=== PATIENT | female | born 1970 | race Caucasian/White ===

== ENCOUNTER → 2023-10-29 17:03 | Emergency (ER) | payer OTHER, SELFPAY ==
[2023-10-29] VITALS (45 sets, daily range): BP systolic 102–146; BP diastolic 40–84; PULSE 67–86; RESP 10–30; TEMP 36.6; O2SAT 94–100
--- NOTE | 2023-10-29 17:36 | W.ED.GENAD ---
Discharge Plan Disposition Patient Disposition: Home Discharge Details Clinical Impression: Abdominal pain, Carcinoid tumor, UGIB (upper gastrointestinal bleed) Primary Care Provider: Unknown,Unknown ED Provider: Jagruti Tejada Home Meds and New Rx's Prescriptions: No Action famotidine 40 mg tablet 40 mg PO BID Creon 36,000-114,000- 180,000 unit capsule,delayed release(DR/EC) 1 cap PO TID Rx Instructions: administer with meals and/or snacks sandastatin IM .every 3 weeks loperamide 2 mg capsule 2 mg PO Q4H PRN Rx Instructions: administer after each loose stool until symptoms controlled; do not exceed 8 mg per 24 hrs ergotamine-caffeine 1-100 mg tablet 1 tab PO DAILY PRN rizatriptan 5 mg tablet 5 mg PO Q2H PRN Rx Instructions: do not exceed 6 doses per 24 hrs Discharge Instructions Additional Instructions: Please continue your stomach medications as prescribed take pain medication as needed. Do not mix this medication with alcohol If you have recurrence of bright red vomit or any bright red stool please return to the emergency department please follow up with your carcinoid team when you return home HPI General Date/Time Provider Initiated Documentation: 10/29/23 17:34. Limitations to Documentation: no limitations. Information obtained by: patient. HPI Narrative: 53-year-old female with past medical history of carcinoid tumor, not on therapy presents for evaluation of bloody vomit. She reports that this morning she woke up with some abdominal pain and today has had 3 episodes of emesis that had bright red blood. She has not had a episode of vomiting or bleeding for several hours. She has not had any change in stool. Earlier today she did have a normal stool. No melena or bright red blood. The patient reports some epigastric abdominal pain. She does report history of intermittent upper GI bleeding. She reports a history of ulcers, consistent with her carcinoid. She does get octreotide infusion every 3 weeks. She states that she does have a subcu octreotide injection but she does not have her with her as she is just up here camping. Related Data Home Medications ?Medication ?Instructions ?Recorded ?Confirmed ergotamine 1 mg-caffeine 100 mg 1 tab PO DAILY PRN 10/29/23 10/29/23 tablet famotidine 40 mg tablet 40 mg PO BID 10/29/23 10/29/23 [id number] 1 cap PO TID 10/29/23 10/29/23 36,000-114,000-180,000 unit capsule,delay rel (Creon) loperamide 2 mg capsule 2 mg PO Q4H PRN 10/29/23 10/29/23 rizatriptan 5 mg tablet 5 mg PO Q2H PRN 10/29/23 10/29/23 sandastatin IM .every 3 weeks 10/29/23 Allergies Allergy/AdvReac Type Severity Reaction Status Date / Time erythromycin base (From Allergy Mild vomit Verified 10/29/23 17:16 Erythrocin) levofloxacin (From Levaquin) AdvReac Mild joint pain Verified 10/29/23 17:16 C-chlor AdvReac Mild Vomit Uncoded 10/29/23 17:16 General Stated Complaint: Abd Prob HERLINDA: 3 Exam Narrative Exam Narrative: Review of Systems: All systems reviewed & are unremarkable except as noted in HPI and below Well-developed, no acute distress NCAT PERRL, normal conjunctiva RRR normal blood pressure Unlabored respiratory effort clear bilaterally Nondistended abdomen soft, mild epigastric tenderness Extremities w/o deformity, no cyanosis, no edema No rashes or lesions. no focal neurologic deficits Appropriate mood and affect Course Vital Signs Vital signs: Vital Signs Temperature 36.6 C 10/29/23 17:12 Pulse 79 10/29/23 17:12 Respiratory Rate 16 10/29/23 17:12 Blood Pressure 132/84 10/29/23 17:12 Pulse Oximetry 99 10/29/23 17:12 Temperature 36.6 C 10/29/23 17:12 Temperature Source Temporal Artery Scan 10/29/23 17:12 Pulse 79 10/29/23 17:12 Respiratory Rate 16 10/29/23 17:12 Respiratory Effort Normal, Non-Labored 10/29/23 17:20 Blood Pressure 132/84 10/29/23 17:12 Blood Pressure Position Sitting 10/29/23 17:12 Pulse Oximetry 99 10/29/23 17:12 Oxygen Delivery Method Room Air 10/29/23 17:12 Oxygen Flow Rate 0 10/29/23 17:12 Pain Level 9 10/29/23 17:12 Medical Decision Making Emergent evaluation of abdominal pain and upper GI bleeding. Patient has significant history of carcinoid tumor with recurrent upper GI bleeding treated with periocular octreotide infusions and followed by physicians in [place]. She is hemodynamically stable, not having any active bleeding at this time. Mild abdominal tenderness but not any significant. Plan for Protonix, octreotide infusion, will check lab work and CT angiogram to evaluate for acute GI bleeding Lab work reviewed. The patient hemoglobin is stable at 13/40. Patient is . She has slightly elevated creatinine at 1.1. LFTs are slightly elevated though not significantly. She has been monitored in the emergency department and has not had any additional episodes of vomiting or had any melena or bright red rectal bleeding. A CT scan was obtained. The CT scan reviewed and there is no evidence of contrast extravasation. The patient feels comfortable going home. Recommend that she continue Protonix and Pepcid at home. Avoid alcohol. She was sent home on a few doses of narcotics for her severe abdominal pain. She is advised to return home and follow-up with her team. Return precautions advised. Medical Records Medical records reviewed: Yes I reviewed the patient's medical records. Quality:SDOH Health Related Social Needs: No Data to Display [facility] All Active Problems UGIB (upper gastrointestinal bleed) (Acute) Carcinoid tumor (Acute) Abdominal pain (Acute) Social History Smoking/Tobacco Use Status: Never Smoking risk assessment performed?: Yes Alcohol Intake: current Alcohol Intake frequency: a few times a week Alcohol type: beer and hard liquor Drug use: Daily Substance use type: marijuana Details: medical marijuana Do you feel safe at home: Yes Do you feel safe in your relationship?: Yes
--- OUTSIDE RECORDS SUMMARY | 2023-10-29 17:43 | XMS_ITS | Encounter Summary ---
Author Organization [facility] Address [address] [place] [address] Care Team Providers Care Qa Test Lead Name Role Phone Consuelo Hobbs PA-C Primary Care Provider Madi Sahrp MD Unavailable [phone] Reason for Visit * Reason Comments Medication Refill Encounter Details Date Type Department Care Team ([facility] Contact Info) Description 10/20/2023 Refill [facility] Department of Internal Medicine [facility] [address] [facility] [address] [place] [phone] Consuelo Hobbs PA-C [address] [facility] [address] [place] [phone] Migraine with status migrainosus, not intractable, unspecified migraine type Social History Tobacco Use Types Packs/Day Years Used Date Smoking Tobacco: Former Cigarettes 0.3 22 Q uit: 05/17/2021 Smokeless Tobacco: Never Alcohol Use Standard Drinks/Week Comments Yes 0 (1 standard drink = 0.6 oz pur e alcohol) 6-10 drinks a week Sex and Gender Information Value Date Recorded Sex Assigned at Female 09/16/2022 9:31 AM EDT Gender Identity Female 09/16/2022 9:31 AM EDT Sexual Orientation Heterosexual (straight) 11/09 1:27 PM EDT documented as of this encounter Plan of Treatment Upcoming Encounters Date Type Department Care Team ([facility] Contact Info) Description 11/13/2023 7:45 AM EDT Office Visit [facility] Medical Oncology at [address] [phone] Ricci Carter MD [address] [place], [place] [phone] 11/13/2023 8:30 AM EDT Infusion [facility] [place] [facility] [address] [phone] Ricci Carter MD [address] [place], [place] [phone] Keiko Hallman MD [address] [facility] [place] [address] 11/20/2023 11:00 AM EDT Appointment [facility] Radiology [facility] [address] [place] [phone] Ricci Carter MD [address] [place], [place] [phone] 11/20/2023 11:30 AM EDT Appointment [facility] [address] [place] [phone] Ricci Carter MD [address] [place], [place] [id number] 03/05/2024 11:00 AM EST Consult [facility] [address] [place] [phone] Ricci Carter MD [address] [place], [place] [id number] Jamil Ralph MD [address] [place] [address] 05/30/2024 9:00 AM EST Office Visit [facility] Department of Internal Medicine [facility] [address] [phone] Consuelo Hobbs PA-C [address] [phone] documented as of this encounter Visit Diagnoses Diagnosis Migraine with status migrainosus, not intractable, unspecified migraine type documented in this encounter Care Teams Qa Test Lead Relationship Specialty Start Date End Date Consuelo Hobbs PA-C [address] [place] [id number] PCP - General 05/01/19 Madi Sharp MD [address] [address] Gastroenterology 10/02/19 documented as of this encounter
--- OUTSIDE RECORDS SUMMARY | 2023-10-29 17:43 | XMS_ITS | Encounter Summary ---
Author Organization [facility] Address [address] [place] [address] Care Team Providers Care Principal Bioinformatics Specialist Name Role Phone Consuelo Hobbs PA-C Primary Care Provider Madi Sharp MD Unavailable [phone] Reason for Referral * Cardiology (Routine) - Authorized Specialty Diagnoses / Procedures Referred By Contact Referred To Contact Cardiovascular Disease / Cardiology Diagnoses Palpitations Ricci Carter MD [address] [place] [address] [address] Referral ID Status Reason Start Date Expiration Date V isits Requested Visits Authorized [id number] Authorized Consult 10/02/2023 10/02/2024 1 1 Question Answer Reason for referral: Palpitations * Diagnostic Imaging (Routine) - Pending Review Specialty Diagnoses / Procedures Referred By Contac t Referred To Contact Diagnoses Carcinoid tumor of ileum (HCC) Procedures MRI Pelvis w w/o contrast Ricci Carter MD [address] [place] [address] Referral ID Status Reason Start Date Expiration Date V isits Requested Visits Authorized [id number] Pending Review 10/02/2023 10/02/2024 1 1 * Diagnostic Imaging (Routine) - Pending Review Specialty Diagnoses / Procedures Referred By Contbalbir t Referred To Contact Diagnoses Carcinoid tumor of ileum (HCC) Procedures MRI Abdomen w w/o contrast Ricci Carter MD [address] [place] [address] Referral ID Status Reason Start Date Expiration Date V isits Requested Visits Authorized [id number] Pending Review 10/02/2023 10/02/2024 1 1 Encounter Details Date Type Department Care Team (Late st Contact Info) Description 10/02/2023 10:30 AM EDT Office Visit [facility] [place] [facility]cology at [address] [phone] Ricci Carter MD [address] [place] [address] Carcinoid tumor of ileum (HCC) (Primary Dx); Diarrhea, unspecified type; History of iron deficiency anemia; Palpitations; Carcinoid tumor of ileum, unspecified whether malignant (HCC); Malignant carcinoid tumor of ileum (HCC); Encounter for monitoring octreotide therapy; Vitamin D deficiency; Chronic diarrhea; Oncology follow-up encounter; Elevated transaminase level; Daily consumption of alcohol; Normocytic anemia Social History Tobacco Use Types Packs/Day Years [...] PM EDT documented as of this encounter Last Filed Vital Signs Vital Sign Reading Time Taken Comments Blood Pressure 145/81 10/02/2023 10:36 AM EDT Pulse 82 10/02/2023 10:36 AM EDT Temperature 36.2 ??C (97.2 ??F) 10/02/2023 1 0:36 AM EDT Respiratory Rate 18 10/02/2023 10:3 6 AM EDT Oxygen Saturation 99% 10/02/2023 10: 36 AM EDT Inhaled Oxygen Concentration - - Weight 75.2 kg (165 lb 11.2 oz) 024 10:36 AM EDT Height - - Body Mass Index 29.36 08/29/2023 9:06 AM EDT documented in this encounter Progress Notes * Ricci Carter MD - 10/02/2023 10:30 AM EDT Images from the original note were not included. Medical Oncology/Hematology Progress Note Healthcare Team: Consuelo Hobbs PA-C Subjective: Date of visit is: 10/02/2023 Rody Sotelo is a 53 y.o. female who presents here today for a follow- up visit regarding carcinoid. ONCOLOGY HISTORY: - December 16, 2019, colonoscopy was normal. Interim History: She is here alone. Recurrent palpitations. She reports no side effects from Sandostatin LAR, some post injection lump. She has not been able to get > 6 tabs of Kytril per month. She reports more diarrhea since she is not using consistently. Diarrhea, 7-10 episodes per day. - loperamide, 12-14 tabs per day - colestipol, once daily - taking granisetron 2 mg at bedtime - not required any short acting octreotide Still doing mindful drinking program. - 4 dry days per week - 4 drinks on weekends - 3 drinks on week days She reports no abdominal pain or cramping. She reports no flushing. LMP- August 2023, x 12 hours She denies any pain Pain: 0 REVIEW OF SYSTEMS: Review of Systems Constitutional: Positive for fatigue. Negative for appetite change, chills, diaphoresis, fever and unexpected weight change. Respiratory: Negative for chest tightness, cough, shortness of breath and wheezing. Cardiovascular: Positive for palpitations (x 3 weeks, denies lightheadedness or dizzyness). Negative for chest pain and leg swelling. Gastrointestinal: Positive for nausea (occasional). Negative for blood in stool and vomiting. Endocrine: Positive for hot flashes. Musculoskeletal: Positive for arthralgias (feet). Neurological: Positive for headaches (migraines). Negative for dizziness and light-headedness. Psychiatric/Behavioral: Positive for sleep disturbance. The remainder of the 12- point ROS are within normal limits with the exceptions as noted in the HPI. Medications Outpatient Medications Marked as Taking for the 10/02/23 encounter (Office Visit) with Ricci Carter MD: busPIRone (BUSPAR) 10 MG tablet, Take 1 tablet (10 mg total) by mouth nightly., Disp: , Rfl: calcium carbonate (OS-ANGELICA) 600 MG tablet, Take 1 tablet (600 mg total) by mouth every morning with breakfast., Disp: , Rfl: Cannabis (MARIJUANA) [facility] Medical Prescription Strength, as needed., Disp: , Rfl: colestipol (COLESTID) 1 g tablet, TAKE 2 TABLETS(2 GRAMS) BY MOUTH TWICE DAILY WITH FULL GLASS OF WATER, Disp: 120 tablet, Rfl: 5 ergotamine-caffeine (CAFERGOT) 1-100 MG per tablet, TAKE 1 TABLET BY MOUTH TWICE DAILY NEEDED, Disp: 6 tablet, Rfl: 0 famotidine (PEPCID) 40 MG tablet, Take 1 tablet (40 mg total) by mouth daily., Disp: , Rfl: Ferrous Bisglycinate Chelate 28 MG Cap, Take 28 mg by mouth daily., Disp: , Rfl: granisetron (KYTRIL) 1 MG tablet, Take 2 tablets (2 mg total) by mouth daily., Disp: 60 tablet, Rfl: 5 loperamide (IMODIUM A-D) 2 MG capsule, Take 1 capsule (2 mg total) by mouth 4 (four) times a day asneeded for diarrhea., Disp: , Rfl: MILK THISTLE PO, Take by mouth 3 times a day., Disp: , Rfl: Multiple Vitamins-Minerals (Multi Complete) Cap, Take 1 capsule by mouth See Admin Instructions., Disp: , Rfl: pancrelipase, Fen-Sfbd-Rtgj, (Creon) [address]97 units Cap DR Particles capsule, Take 1 capsule (36,000 units of lipase total) by mouth 3 (three) times a day with meals. Dose is in units of lipase.,Disp: 90 capsule, Rfl: 5 rizatriptan (MAXALT-IRRIGATOR) 10 MG disintegrating tablet, DISSOLVE 1 TABLET ON THE TONGUE EVERY DAY NEEDED, Disp: 9 tablet, Rfl: 0 valsartan (DIOVAN) 160 MG tablet, TAKE 1 TABLET(160 MG) BY MOUTH DAILY, Disp: 90 tablet, Rfl: 1 vitamin D3 (CHOLECALCIFEROL) 1.25 MG (82578 UT) tablet, Take 1 tablet (50,000 Units total) by mouthonce a week., Disp: 24 tablet, Rfl: 1 Objective: Wt Readings from Last 2 Encounters: 10/02/23 75.2 kg (165 lb 11.2 oz) 08/29/23 76.5 kg (168 lb 11.2 oz) Physical Exam Vitals: 10/02/23 1036 BP: (!) 145/81 BP Location: Right arm Pulse: 82 Resp: 18 Temp: 97.2 ??F (36.2 ??C) TempSrc: Tympanic SpO2: 99% Weight: 75.2 kg (165 lb 11.2 oz) Performance status: ECOG (0) Fully active, able to carry on all predisease performance without restriction Physical Exam Constitutional: General: She is not in acute distress. Appearance: Normal appearance. She is well-developed. She is not ill-appearing, toxic-appearing or diaphoretic. HENT: Head: Normocephalic and atraumatic. Mouth/Throat: Mouth: Mucous membranes are dry. Eyes: General: No scleral icterus. Extraocular Movements: Extraocular movements intact. Conjunctiva/sclera: Conjunctivae normal. Pupils: Pupils are equal, round, and reactive to light. Cardiovascular: Rate and Rhythm: Normal rate and regular rhythm. Heart sounds: No murmur heard. Pulmonary: Effort: Pulmonary effort is normal. No respiratory distress. Breath sounds: Normal breath sounds. No wheezing, rhonchi or rales. Abdominal: General: Abdomen is flat. Bowel sounds are normal. There is no distension. Palpations: Abdomen is soft. Abdomen is not rigid. There is no hepatomegaly, splenomegaly or mass. Tenderness: There is no abdominal tenderness. There is no guarding. Negative signs include Henderson'ssign. Musculoskeletal: Right lower leg: No edema. Left lower leg: No edema. Lymphadenopathy: Head: Right side of head: No submental, submandibular, preauricular, posterior auricular or occipital adenopathy. Left side of head: No submental, submandibular, preauricular, posterior auricular or occipital adenopathy. Cervical: No cervical adenopathy. Upper Body: Right upper body: No supraclavicular, axillary or epitrochlear adenopathy. Left upper body: No supraclavicular, axillary or epitrochlear adenopathy. Skin: General: Skin is warm and dry. Coloration: Skin is not jaundiced or pale. Findings: No bruising, erythema, lesion or rash. Nails: There is no clubbing. Neurological: General: No focal deficit present. Mental Status: She is alert and oriented to person, place, and time. Cranial Nerves: No cranial nerve deficit. Sensory: No sensory deficit. Motor: No weakness. Gait: Gait normal. Deep Tendon Reflexes: Reflexes are normal and symmetric. Psychiatric: Mood and Affect: Mood normal. Behavior: Behavior normal. Thought Content: Thought content normal. Judgment: Judgment normal. Results: Lab Results Component Value Date WBC 6.2 06/06/2023 RBC 4.19 06/06/2023 HGB 12.4 06/06/2023 MCV 91 06/06/2023 PLT 240 06/06/2023 NEUTROABS 3.50 06/06/2023 LYMPHSABS 2.10 06/06/2023 MONOSABS 688 06/28/2022 EOSABS 67 06/28/2022 BASOABS 37 06/28/2022 Lab Results Component Value Date ALT 61 (H) 06/06/2023 AST 45 (H) 06/06/2023 ALKPHOS 76 06/06/2023 BILITOT 0.4 06/06/2023 Lab Results Component Value Date GLUC 102 (H) 06/06/2023 CALCIUM 9.5 06/06/2023 NA 139 06/06/2023 K 4.4 06/06/2023 CO2 21 06/06/2023 CL 101 06/06/2023 BUN 14 06/06/2023 CREAT 0.75 06/06/2023 Ferritin Date Value Ref Range Status 06/06/2023 70 16 - 232 ng/mL Final Iron Date Value Ref Range Status 06/06/2023 143 45 - 160 mcg/dL Final Total Iron Binding Capacity Date Value Ref Range Status 06/06/2023 483 (H) 250 - 450 mcg/dL (calc) Final Reticulocyte Count Date Value Ref Range Status 06/06/2023 0.9 % Final Iron Saturation Date Value Ref Range Status 06/06/2023 30 16 - 45 % (calc) Final Assessment/Plan: 1. Carcinoid, [id number] A. Diagnosed July 11, 2013 1. S/p small bowel resection and right hemicolectomy a. Path- well- differentiated neuroendocrine tumor B. Receiving Sandostatin LAR, initiated October 17, 2013 1. re- staging MR abdomen/pelvis (January 09, 2020)- SD 2. re- staging MR abdomen/pelvis (January 18, 2021)- SD 3. re- staging MR abdomen/pelvis (October 07, 2021)- SD 4. re- staging MR abdomen/pelvis (May 2022)- SD 5. re- staging MR abdomen/pelvis (November 2022)- stable radiographic findings In summary, Rody is a 53 y.o. female with a PMHx significant for: migraines, PCOS, IBS and PVCs whopresents here today for a follow- up visit regarding carcinoid. (the above information is being carried forward from prior records for informational purposes only and is being cited so that efficiency, safety, and quality of this patients' oncologic/hematologic care is not compromised) Rody is here for continued treatment of her metastatic carcinoid and ongoing therapeutic monitoring. She reports increasing diarrheal stools, diarrheal frequency, and now with approximately 2 weeks of palpitations. Since she has been unable to obtain an adequate supply of granisetron, she does feel that her diarrhea is worse. She has increased her dose of loperamide. She has not maximized her dose of colestipol. She is without weight loss, nausea or vomiting. She is without any flushing. She does acknowledge there is room for improvement with diet. She is tolerating Sandostatin LAR without apparent adverse effects or toxicities, she has not been able to stay on an every 3-week cycle. I have recommended the following: Modify colestipol to 2 g twice daily Modify granisetron to 1 mg at bedtime and in order to conserve supply, I renewed Continue loperamide as needed Short acting octreotide as needed, I renewed Continue Creon Modify diet I reordered surveillance MRI of abdomen and pelvis. Continue Sandostatin LAR 40 mg every 21 days. She will be due for treatment today. Lab order sent to [facility]. I plan on serving as a continuing focal point as part of ongoing care for the primary diagnosis of this condition. # Normocytic anemia, secondary to iron deficiency She is receiving ferrous bisglycinate, which she is tolerating well. Iron studies, CBC and reticulocyte count ordered. # Vitamin D deficiency Continue current dose of vitamin D. # Elevated AST and ALT Continue to monitor. Likely secondary to alcohol. She is not taking any acetaminophen. Abstinence from alcohol may also help to improve her diarrhea. # Palpitations No other associated symptoms, lasting 20-30 minutes. She remains tobacco free, and not taking caffeine or any other stimulants. I referred her to cardiology. I reminded her that she is overdue for mammogram. She will schedule an appointment. Immunizations: Received 2 doses of shingles vaccine Received influenza immunization 2022 ORDERS 1. Diarrhea, unspecified type - colestipol (COLESTID) 1 g tablet; TAKE 2 TABLETS(2 GRAMS) BY MOUTH TWICE DAILY WITH FULL GLASS OFWATER Dispense: 120 tablet; Refill: 5 2. Carcinoid tumor of ileum (HCC) - colestipol (COLESTID) 1 g tablet; TAKE 2 TABLETS(2 GRAMS) BY MOUTH TWICE DAILY WITH FULL GLASS OFWATER Dispense: 120 tablet; Refill: 5 - BASIC METABOLIC PANEL; Future - HEPATIC FUNCTION PANEL; Future - MRI Abdomen w w/o contrast; Future - MRI Pelvis w w/o contrast; Future - granisetron (KYTRIL) 1 MG tablet; Take 1 tablet (1 mg total) by mouth daily. Dispense: 30 tablet;Refill: 5 - BASIC METABOLIC PANEL - HEPATIC FUNCTION PANEL - octreotide (SandoSTATIN) 100 mcg/mL injection; Inject 1 mL (100 mcg total) under the skin 3 timesdaily (every 8 hours) as needed (diarrhea, flushing). Dispense: 90 mL; Refill: 5 - Chromogranin A, LC/MS/MS 3. History of iron deficiency anemia - Complete Blood Count, with Differential - Iron, TIBC, and Ferritin Panel - RETICULOCYTE COUNT 4. Palpitations - Ambulatory referral to Cardiology No orders of the defined types were placed in this encounter. The patient will return in 6 weeks. There are no Patient Instructions on file for this visit. Number and complexity of problems addressed- high Amount and/or complexity of data to be reviewed and analyzed- moderate Risk of complications and/or morbidity or mortality of patient management- high documented in this encounter Plan of Treatment Upcoming Encounters Date Type Department Care Team (Late st Contact Info) Description 11/13/2023 7:45 AM EDT Office Visit [facility] Medical Oncology at [address] [phone] Ricci Carter MD [address] [place] [address] 11/13/2023 8:30 AM EDT Infusion [facility] [place] [facility] Outpatient Infusion Center [address] [phone] Ricci Carter MD [address] [place] [address] Keiko Hallman MD [address] [facility] [place] [address] 11/20/2023 11:00 AM EDT Appointment [facility] Radiology [facility] [address] [place] [phone] Ricci Carter MD [address] [place] [address] 11/20/2023 11:30 AM EDT Appointment [facility] Radiology [facility] [address] [place] [phone] Ricci Carter MD [address] [place] [address] 03/05/2024 11:00 AM EST Consult [facility] Cardiology [place] [address] [facility] [address] [place] [phone] Ricci Carter MD [address] [place] [address] Jamil Ralph MD [address] [facility] [address] [place] [address] 05/30/2024 9:00 AM EST Office Visit [facility] Department of Internal Medicine [facility] [address] [facility] [address] [place], [place] [phone] Consuelo Hobbs PA-C [address] [facility] [address] [place] [address] Scheduled Orders Name Type Priority Associated Diagnoses Orde r Schedule Complete Blood Count, with Differential Lab Routine History of iron deficiency anemia Ordered: 10/02/2023 Iron, TIBC, and Ferritin Panel Lab Routine History of iron deficiency anemia Ordered: 10/02/2023 RETICULOCYTE COUNT Lab Routine History of iron deficiency anemia Ordered: 10/02/2023 BASIC METABOLIC PANEL Lab Routine Carcinoid tumor of ileum (HCC) Expected: 10/02/2023 (Approximate), Expires: 10/01/2024 HEPATIC FUNCTION PANEL Lab Routine Carcinoid tumor of ileum (HCC) Expected: 10/02/2023 (Approximate), Expires: 10/01/2024 MRI Abdomen w w/o contrast Imaging Routine Carcinoid tumor of ileum (HCC) Expected: 10/02/2023, Expires: 10/01/2024 MRI Pelvis w w/o contrast Imaging Routine Carcinoid tumor of ileum (HCC) Expected: 10/02/2023, Expires: 10/01/2024 Chromogranin A, LC/MS/MS Lab Routine Carcinoid tumor of ileum (HCC) Ordered: 10/02/2023 Scheduled Referrals Name Type Priority Associated Diagnoses Order Schedule Ambulatory referral to Cardiology Outpatient Referral Routine Palpitations Ordered: 10/02/2023 documented as of this encounter Visit Diagnoses Diagnosis Carcinoid tumor of ileum, unspecified whether malignant (HCC) Diarrhea, unspecified type History of iron deficiency anemia Personal history of diseases of blood and blood-forming organs Palpitations Malignant carcinoid tumor of ileum (HCC) Malignant carcinoid tumor of the ileum Encounter for monitoring octreotide therapy Vitamin D deficiency Chronic diarrhea Diarrhea Oncology follow-up encounter Elevated transaminase level Daily consumption of alcohol Normocytic anemia Unspecified anemia documented in this encounter Care Teams Principal Bioinformatics Specialist Relationship Specialty Start Date End Date Consuelo Hobbs PA-C [address] [place] [address] PCP - General 05/01/19 Madi Sharp MD [address] [place] [phone] Gastroenterology 10/02/19 documented as of this encounter
--- OUTSIDE RECORDS SUMMARY | 2023-10-29 17:43 | XMS_ITS | Encounter Summary ---
Author Organization [facility] Address [address] [place] [address] Care Team Providers Care Vegetable Trimmer Name Role Phone Consuelo Hobbs PA-C Primary Care Provider Madi Sharp MD Unavailable [phone] Encounter Details Date Type Department Care Team (Latest Contact Info) Description 10/23/2023 Travel Social History Tobacco Use Types Packs/Day Years [...] Description 11/13/2023 7:45 AM EDT Office Visit [facility] [place] [facility] Oncology at [address] [phone] Ricci Carter MD [address] [place] [address] 11/13/2023 8:30 AM EDT Infusion [facility] [place] [facility] Out[facility] Infusion Center [address] [phone] Ricci Carter MD [address] [place], [place] [phone] Keiko Hallman MD [address] [facility] [place] [address] 11/20/2023 11:00 AM EDT Appointment [facility] Radiology [facility] [address] [place] [phone] Ricci Carter MD [address] [place], [place] [phone] 11/20/2023 11:30 AM EDT Appointment [facility] Radiology [facility] [address] [place] [phone] Ricci Carter MD [address] [place], [place] [phone] 03/05/2024 11:00 AM EST Consult [facility] Cardiology [address] [place] [phone] Ricci Carter MD [address] [place], [place] [phone] Jamil Ralph MD [address] [facility] [address] [place], [place] [phone] 05/30/2024 9:00 AM EST Office Visit [facility] Department of Internal Medicine [address] [place], [place] [phone] Consuelo Hobbs PA-C [address] [address] documented as of this encounter Visit Diagnoses Not on filedocumented in this encounter Care Teams Vegetable Trimmer Relationship Specialty Start Date End Date Consuelo Hobbs PA-C [address] [phone] PCP - General 05/01/19 Madi Sharp MD [address] [place] [address] Gastroenterology 10/02/19 documented as of this encounter
--- OUTSIDE RECORDS SUMMARY | 2023-10-29 17:43 | XMS_ITS | Encounter Summary ---
Author Organization [facility] Address [address] [place] [address] Care Team Providers Care Loan Services Professional Name Role Phone Consuelo Hobbs PA-C Primary Care Provider Madi Sharp MD Unavailable [phone] Encounter Details Date Type Department Care Team (Late st Contact Info) Description 09/18/2023 Orders Only [facility] Medical Oncology at [address] [phone] Ricci Carter MD [address] [place] [address] Social History Tobacco Use Types Packs/Day Years [...] Description 11/13/2023 7:45 AM EDT Office Visit [facility] [place] Medical Oncology at [address] [phone] Ricci Carter MD [address] [place] [phone] 11/13/2023 8:30 AM EDT Infusion [facility] [place] [facility] Outpatient Infusion Center [address] [phone] Ricci Carter MD [address] [place] [phone] Keiko Hallman MD 80 [facility] [place] [address] 11/20/2023 11:00 AM EDT Appointment [facility] Radiology [facility] [address] [place] [phone] Ricci Caretr MD [address] [place], [place] [phone] 11/20/2023 11:30 AM EDT Appointment [facility] Radiology [facility] [address] [place] [phone] Ricci Carter MD [address] [place] [phone] 03/05/2024 11:00 AM EST Consult [facility] Cardiology [address] [place] [address] Ricci Caretr MD [address] [place], [place] [phone] Jamil Ralph MD [address] [place] [address] 05/30/2024 9:00 AM EST Office Visit [facility] [address] [facility] [address] [place] [address] Consuelo Hobbs PA-C [address] [address] documented as of this encounter Visit Diagnoses Not on filedocumented in this encounter Care Teams Loan Services Professional Relationship Specialty Start Date End Date Consuelo Hobbs PA-C [address] [place] [address] PCP - General 05/01/19 Madi Sharp MD [address] [place] [address] Gastroenterology 10/02/19 documented as of this encounter
--- OUTSIDE RECORDS SUMMARY | 2023-10-29 17:43 | XMS_ITS | Clinical Summary ---
Author Organization [facility] Address [address] [place] [address] Care Team Providers Care Environmental Maintenance Worker Name Role Phone Consuelo Hobbs PA-C Primary Care Provider Madi Sharp MD Unavailable [phone] Allergies Active Allergy Reactions Criticality Noted Date Comments Cefaclor GI Intolerance/Nausea/Vomiting Low 08/13 Erythromycin GI Intolerance/Nausea/Vomiting Low Levofloxacin Myalgia/Myositis/Arthralgia/Arthritis Medium 09/26/2019 Medications Medication Sig Dispensed Refills Start Date End Date Status famotidine (PEPCID) 40 MG tablet Take 1 tablet (40 mg total) by mouth daily. 0 Active loperamide (IMODIUM A-D) 2 MG capsule Take 1 capsule (2 mg total) by mouth 4 (four) times a day as needed for diarrhea. 0 Active calcium carbonate (OS-ANGELICA) 600 MG tablet Take 1 tablet (600 mg total) by mouth every morning with breakfast. 0 Active Cannabis (MARIJUANA) Misc Medical Prescription Strength as needed. 0 Active busPIRone (BUSPAR) 10 MG tablet Take 1 tablet (10 mg total) by mouth nightly. 0 2 Active Multiple Vitamins-Minerals (Multi Complete) Cap Take 1 capsule by mouth See Admin Instructions . 0 0 Active pancrelipase, Wah-Bjdo-Nhmt, (Creon) [address]78-202616 units Cap DR Particles capsuleIndications: Carcinoid tumor of ileum, unspecified whether malignant (HCC),Diarrhea, unspecified type Take 1 capsule (36,000 units of lipase total) by mouth 3 (three) times a day with meals. Dose is in units of lipase. 90 capsule 5 3 Active Ferrous Bisglycinate Chelate 28 MG Cap Take 28 mg by mouth daily. 0 Active vitamin D3 (CHOLECALCIFEROL) 1.25 MG (63291 UT) tabletIndications:V itamin D deficiency Take 1 tablet (50,000 Units total) by mouth once a week. 24 tablet 1 3 Active valsartan (DIOVAN) 160 MG tabletIndications:H ypertension, unspecified type TAKE 1 TABLET(160 MG) BY MOUTH DAILY 90 tablet 1 4 Active MILK THISTLE PO Take by mouth 3 times a day. 0 Active OMEprazole (PriLOSEC) 20 MG capsule Take 1 capsule (20 mg total) by mouth every morning before breakfast. 0 Active colestipol (COLESTID) 1 g tabletIndications:D iarrhea, unspecified type,Carcinoid tumor of ileum (HCC) TAKE 2 TABLETS(2 GRAMS) BY MOUTH TWICE DAILY WITH FULL GLASS OF WATER 120 tablet 5 4 Active granisetron (KYTRIL) 1 MG tabletIndications:C arcinoid tumor of ileum (HCC) Take 1 tablet (1 mg total) by mouth daily. 30 tablet 5 4 Active octreotide (SandoSTATIN) 100 mcg/mL injectionIndication s:Carcinoid tumor of ileum (HCC) Inject 1 mL (100 mcg total) under the skin 3 times daily (every 8 hours) as needed (diarrhea, flushing). 90 mL 5 4 03/30/20 24 Active ergotamine-caffeine (CAFERGOT) 1-100 MG per tabletIndications:M igraine with status migrainosus, not intractable, unspecified migraine type TAKE 1 TABLET BY MOUTH TWICE DAILY NEEDED 6 tablet 0 4 Active rizatriptan (MAXALT-BELT GLASS SANDER) 10 MG disintegrating tabletIndications:M igraine with status migrainosus, not intractable, unspecified migraine type DISSOLVE 1 TABLET ON THE TONGUE EVERY DAY NEEDED 9 tablet 0 4 Active octreotide (SandoSTATIN) 100 MCG/ML injectionIndication s:Carcinoid tumor of ileum (HCC) Inject 1 mL (100 mcg total) under the skin 3 times daily (every 8 hours) as needed (diarrhea, flushing). 90 mL 11 0 10/02/19 24 Discontinued(Reo rder) colestipol (COLESTID) 1 g tabletIndications:D iarrhea, unspecified type,Carcinoid tumor of ileum (HCC) TAKE 2 TABLETS(2 GRAMS) BY MOUTH TWICE DAILY WITH FULL GLASS OF WATER 120 tablet 5 4 10/02/19 24 Discontinued(Reo rder) granisetron (KYTRIL) 1 MG tabletIndications:C arcinoid tumor of ileum (HCC) Take 2 tablets (2 mg total) by mouth daily. 60 tablet 5 4 10/02/19 24 Discontinued(Reo rder) ergotamine-caffeine (CAFERGOT) 1-100 MG per tabletIndications:M igraine with status migrainosus, not intractable, unspecified migraine type TAKE 1 TABLET BY MOUTH TWICE DAILY NEEDED 6 tablet 0 4 10/23/19 24 Discontinued rizatriptan (MAXALT-BELT GLASS SANDER) 10 MG disintegrating tabletIndications:M igraine with status migrainosus, not intractable, unspecified migraine type DISSOLVE 1 TABLET ON THE TONGUE EVERY DAY NEEDED 9 tablet 0 4 10/23/19 24 Discontinued Active Problems Problem Noted Date Diagnosed Date Snoring 06/13/2023 Hypertension 06/13/2023 Weight gain 05/28/2023 Anemia 05/28/2023 History of gastric ulcer 05/28/2023 Elevated LFTs 05/28/2023 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 Abnormal mammogram of right breast 06/14/2022 Chronic diarrhea 06/14/2022 Achilles tendinitis of left lower extremity 10/2022 Anxiety 06/07/2022 Chronic insomnia 06/07/2022 Depression 06/07/2022 Gastric metaplasia of esophagus 06/07/2022 Irritable bowel syndrome 06/07/2022 Proteinuria 06/07/2022 Varicose veins 06/07/2022 Vegetarian diet 06/07/2022 Vitamin D deficiency 06/07/2022 Nicotine dependence in remission 06/07/2022 Medical marijuana use 01/20/2020 Encounter for monitoring octreotide therapy 11/02 Migraine 11/25/2019 PCOS (polycystic ovarian syndrome) 11/25/2019 PVC (premature ventricular contraction) 11/25/19 Heart palpitations 11/25/2019 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, N1, M1) - Signed by Ricci Carter MD on 11/25/2019 Resolved Problems Problem Noted Date Diagnosed Date Resolved Date Bilateral impacted cerumen 06/07/2022 0 06/13/2022 Encounter to discuss test results 03/09/2021 06/07/2022 Abdominal pain 04/13/2020 09/15/2020 Shortness of breath 03/30/2020 06/08/19 23 Oncology follow-up encounter 11/25/2019 06/07/2022 Diarrhea 11/25/2019 06/07/2022 Prescription refill 11/25/2019 06/08/19 23 Abdominal wall pain in right flank 08/19/2015 09/15/2020 Carcinoid tumor 08/01/2013 06/07/2022 Overview: Carcinoid tumor Encounters Date Type Department Care Team Description 10/23/2023 8:30 AM EDT Infusion [facility] [place] [facility] Outpatient Infusion [address] [phone] Ricci Carter MD DeFusco, Patricia A, MD Rate, Abigail, RN Carcinoid tumor of ileum, unspecified whether malignant (HCC) (Primary Dx) 10/23/2023 Orders Only [facility] Medical Oncology at [address] [phone] Ricci Carter MD 10/23/2023 Travel 10/20/2023 Refill [facility] Department of Internal Medicine [address] [place] [address] Consuelo Hobbs PA-C Migraine with status migrainosus, not intractable, unspecified migraine type 10/02/2023 11:00 AM EDT Infusion [facility] at [address] [phone] Ricci Carter MD DeFusco, Patricia A, MD Vogt, Sarah E, RN Carcinoid tumor of ileum, unspecified whether malignant (HCC) (Primary Dx) 10/02/2023 10:30 AM EDT Office Visit [facility] Medical Oncology at [address] [phone] Ricci Carter MD Carcinoid tumor of ileum (HCC) (Primary Dx); Diarrhea, unspecified type; History of iron deficiency anemia; Palpitations; Carcinoid tumor of ileum, unspecified whether malignant (HCC); Malignant carcinoid tumor of ileum (HCC); Encounter for monitoring octreotide therapy; Vitamin D deficiency; Chronic diarrhea; Oncology follow-up encounter; Elevated transaminase level; Daily consumption of alcohol; Normocytic anemia 10/02/2023 Travel 09/18/2023 Nurse Triage [facility] Medical Oncology at [address] [phone] Yesica Blanco RN 09/18/2023 [facility] Department of Internal Medicine [address] [place], [place] [phone] Consuelo Hobbs PA-C Migraine with status migrainosus, not intractable, unspecified migraine type 09/18/2023 Orders Only [facility] Medical Oncology at [address] [phone] Ricci Carter MD 08/29/2023 9:00 AM EDT Infusion [facility] at [address] [phone] Ricci Carter MD DeFusco, Patricia A, MD Izor, Jennifer L, RN Carcinoid tumor of ileum, unspecified whether malignant (HCC) (Primary Dx) 08/29/2023 Travel 08/24/2023 Scanned Document [facility] Medical Oncology at [address] [place] [phone] ProviderDodie MD 08/23/2023 Orders Only [facility] Medical Oncology at [address] [place] [phone] Niki Giron RN Carcinoid tumor of ileum (HCC) 08/16/2023 Refill [facility] Medical Oncology at [address] [place] [phone] Ricci Carter MD Diarrhea, unspecified type; Carcinoid tumor of ileum (HCC) 08/16/2023 Refill [facility] Medical Oncology at [address] [place] [phone] Ricci Carter MD Diarrhea, unspecified type; Carcinoid tumor of ileum (HCC) 08/10/2023 Refill [facility] Medical Oncology at [address] [place] [phone] Ricci Carter MD Carcinoid tumor of ileum (HCC) 08/08/2023 9:00 AM EDT Infusion [facility] [place] [address] [place] [phone] Ricci Carter MD DeFusco, Patricia A, MD Rate, Abigail, RN Carcinoid tumor of ileum, unspecified whether malignant (HCC) (Primary Dx) 08/08/2023 Travel 08/05/2023 Refill [facility] Department of Internal Medicine [place] [address] [facility] [address] [place], [place] [phone] Consuelo Hobbs PA-C Migraine with status migrainosus, not intractable, unspecified migraine type from Last 3 Months Immunizations Name Administration Dates Next Due Covid-19 mRNA Primary Series Vaccine - Moderna 0.5 mL Full Dose 11/27/2020 Influenza Inactivated/Split Preservative Free IM 05/10/2023,03/09/2021,02/06/2020 Influenza, Quadrivalent (FLU ARIX, AFLURIA, FLULAVAL, FLUZONE) Preservative Free IM 01/14/2023,02/22/2019,01/03/2018 Influenza, Unspecified 03/14/2016 Td 04/03/2016 Zoster Vaccine Recombinant (Shingrix) 09/13/2022 ,06/07/2022 Family History Medical History Relation Name Comments Hypertension Brother Alcohol abuse Father Heart attack Father Heart disease Father Hypertension Father Mental illness Father Mental illness Maternal Aunt Tuberculosis Maternal Grandfather Hypertension Mother Irritable bowel syndrome Mother Mental illness Mother Relation Name Status Comments Brother Father Maternal Aunt Maternal Grandfather Mother Social History Tobacco Use Types Packs/Day Years Used Date Smoking Tobacco: Former Cigarettes 0.3 22 Q uit: 05/17/2021 Smokeless Tobacco: Never Tobacco Cessation:Counseling Given: Not Answered Alcohol Use Standard Drinks/Week Comments Yes 0 (1 standard drink = 0.6 oz pur e alcohol) 6-10 drinks a week Sex and Gender Information Value Date Recorded Sex Assigned at Female 09/16/2022 9:31 AM EDT Gender Identity Female 09/16/2022 9:31 AM EDT Sexual Orientation Heterosexual (straight) 11/09 1:27 PM EDT Last Filed Vital Signs Vital Sign Reading Time Taken Comments Blood Pressure 145/73 10/23/2023 8:24 AM EDT Pulse 78 10/23/2023 8:24 AM EDT Temperature 35.6 ??C (96 ??F) 10/23/2023 8:24 AM EDT Respiratory Rate 16 10/23/2023 8:24 AM EDT Oxygen Saturation 98% 10/23/2023 8:24 AM EDT Inhaled Oxygen Concentration - - Weight 74.5 kg (164 lb 3.2 oz) 10/23/2023 8:24 A M EDT Height 160 cm (5' 2.99) 10/23/2023 8:24 AM EDT Body Mass Index 29.09 10/23/2023 8:24 AM EDT Plan of Treatment Upcoming Encounters Date Type Department Care Team (Late st Contact Info) Description 11/13/2023 7:45 AM EDT Office Visit [facility] Medical Oncology at [address] [phone] Ricci Carter MD [address] [place], [place] [phone] 11/13/2023 8:30 AM EDT Infusion [facility] [place] Out[facility]fusion Center [address] [phone] Ricci Carter MD [address] [place], [place] [phone] Keiko Hallman MD 80 [facility] [place] [address] 11/20/2023 11:00 AM EDT Appointment [facility] Radiology [facility] [address] [place] [phone] Ricci Carter MD [address] [place], [place] [phone] 11/20/2023 11:30 AM EDT Appointment [facility] [address] [place] [phone] Ricci Carter MD [address] [place], [place] [phone] 03/05/2024 11:00 AM EST [facility] Cardiology [address] [place] [phone] Ricci Carter MD [address] [place] [address] Jamil Ralph MD [address] [place] [address] 05/30/2024 9:00 AM EST Office Visit [facility] Department of Internal Medicine [facility] [address] [facility] [address] [place], [place] [phone] Consuelo Hobbs PA-C 1210 [facility] [address] [place], [place] [phone] Health Maintenance Due Date Last Done Comments Hepatitis C Virus Screening 1972 Pneumococcal Vaccine: Pediat smooth (0-5 Years) and At-Risk Patients (6 to 64 Years) (1 of 2 - PCV) 1978 Hepatitis B Vaccines (1 of 3 - 19+ 3-dose series) 1991 Pap Smear (Ages 21-65) 1993 DTaP/Tdap/Td Vaccines (1 - Tdap) 04/04/2016 04/03/19 17 COVID-19 Vaccine (4 - 2022-2 4 season) 2022 11/27/2020, 07/29/2020, 07/02/2020 Influenza Vaccine 11/02/2023 05/10/2023, , 03/09/2021, Additional history exists Mammogram 06/07/2024 06/07/2022 Colonoscopy 11/25/2032 11/25/2022 Zoster (Shingles) Vaccine Completed 09/13/2022, 10/2022 HIV Screening Completed 06/06/2023 Care Teams Environmental Maintenance Worker Relationship Specialty Start Date End Date Consuelo Hobbs PA-C [address] [place] [phone] PCP - General 05/01/19 Madi Sharp MD [address] [place] [address] Gastroenterology 10/02/19
--- OUTSIDE RECORDS SUMMARY | 2023-10-29 17:43 | XMS_ITS | Encounter Summary ---
Author Organization [facility] Address [address] [place] [address] Care Team Providers Care Sustainability Engineer Name Role Phone Consuelo Hobbs PA-C Primary Care Provider Madi Sharp MD Unavailable [phone] Reason for Visit * Reason Comments Injections * Episode Based Medications (Routine) - Authorized Specialty Diagnoses / Procedures Referred By Contbalbir t Referred To Contact Diagnoses Carcinoid tumor of ileum, unspecified whether malignant (HCC) Keiko Hallman MD 80 [facility] [place] [address] [address] [phone] Referral ID Status Reason Start Date Expiration Date V isits Requested Visits Authorized [id number] Authorized 04/29/2022 11/27/2023 5 2 Encounter Details Date Type Department Care Team (Late st Contact Info) Description 10/23/2023 8:30 AM EDT Infusion [facility] Cancer [place] [facility] Out[facility]fusion Center [address] [phone] Ricci Carter MD [address] [place] [address] Keiko Hallman MD 80 [facility] [place] [address] Brittany Goins RN [address] [place] [address] Carcinoid tumor of ileum, unspecified whether malignant (HCC) (Primary Dx) Social History Tobacco Use Types Packs/Day Years [...] Mass Index 29.09 10/23/2023 8:24 AM EDT documented in this encounter Plan of Treatment Upcoming Encounters Date Type Department Care Team (Late st Contact Info) Description 11/13/2023 7:45 AM EDT Office Visit [facility] Cancer [place] Medical Oncology at [address] [phone] Ricci Carter MD [address] [place] [address] 11/13/2023 8:30 AM EDT Infusion [facility] Cancer [place] [facility] Out[facility] [address] [phone] Ricci Carter MD [address], [place] [phone] Keiko Hallman MD 80 [facility] [place] [address] 11/20/2023 11:00 AM EDT Appointment [facility] Radiology [facility] [address] [place] [phone] Ricci Carter MD [address] [place], [place] [phone] 11/20/2023 11:30 AM EDT Appointment [facility] Radiology [facility] [address] [place] [phone] Ricci Carter MD [address] [place], [place] [phone] 03/05/2024 11:00 AM EST Consult [facility] Medical [facility] Cardiology [address] [place] [phone] Ricci Carter MD [address] [place], [place] [phone] Jamil Ralph MD [address] [place] [facility] [address] [place] [address] 05/30/2024 9:00 AM EST Office Visit [facility] Department of Internal Medicine [facility] 1210 [facility] [address] [place] [address] Consuelo Hobbs PA-C [address] [phone] documented as of this encounter Visit Diagnoses Diagnosis Carcinoid tumor of ileum, unspecified whether malignant (HCC)- Primary documented in this encounter Administered Medications Inactive Administered Medications - up to 1 most recent administrations Medication Order MAR Action Action Date Dose Rate Site octreotide (SandoSTATIN LAR) IM injection 40 mg 40 mg, Intramuscular, Once, On 10/23/23 at 0930, For 1 dose, Administer IM intragluteal (avoid deltoid administration). For intraMUSCULAR use ONLY. Must be administered immediately after mixing. Given 10/23/2023 8:36 AM EDT 40 mg Right Gluteal Upper Outer Quadrant documented in this encounter Care Teams Sustainability Engineer Relationship Specialty Start Date End Date Consuelo Hobbs PA-C [address] [place] [phone] PCP - General 05/01/19 Madi Sharp MD [address] [place] [phone] Gastroenterology 10/02/19 documented as of this encounter
--- OUTSIDE RECORDS SUMMARY | 2023-10-29 17:43 | XMS_ITS | Encounter Summary ---
Author Organization [facility] Address [address] [place] [address] Care Team Providers Care Line Puller Name Role Phone Consuelo Hobbs PA-C Primary Care Provider Madi Sharp MD Unavailable [phone] Encounter Details Date Type Department Care Team (Late st Contact Info) Description 10/23/2023 Orders Only [facility] Medical Oncology at [address] [phone] Ricci Carter MD [address] [place] [address] Social History Tobacco Use Types Packs/Day Years [...] Description 11/13/2023 7:45 AM EDT Office Visit [facility] [place] Medical Oncology at [address] [phone] Ricci Carter MD [address] [place] [phone] 11/13/2023 8:30 AM EDT Infusion [facility] [place] [facility] Outpatient Infusion Center [address] [phone] Ricci Carter MD [address] [place] [place] [phone] Keiko Hallman MD 80 [facility] [place] [address] 11/20/2023 11:00 AM EDT Appointment [facility] [place] [facility] [address] [place] [address] [phone] Ricci Carter MD [address] [place], [place] [phone] 11/20/2023 11:30 AM EDT Appointment [facility] [place] [facility] [address] [place] [address] [phone] Ricci Carter MD [address] [place] [place] [phone] 03/05/2024 11:00 AM EST Consult [facility] Cardiology [address] [place] [address] Ricci Carter MD [address] [place], [place] [phone] Jamil Ralph MD [address] [place] [address] 05/30/2024 9:00 AM EST Office Visit [facility] Department of Internal Medicine [facility] 1210 [facility] [address] [place] [address] Consuelo Hobbs PA-C [address] [phone] documented as of this encounter Visit Diagnoses Not on filedocumented in this encounter Care Teams Line Puller Relationship Specialty Start Date End Date Consuelo Hobbs PA-C [address] [place] [phone] PCP - General 05/01/19 Madi Sharp MD [address] [place] [address] Gastroenterology 10/02/19 documented as of this encounter
--- OUTSIDE RECORDS SUMMARY | 2023-10-29 17:43 | XMS_ITS | Encounter Summary ---
Author Organization [facility] Address [address] [place] [address] Care Team Providers Care Operations/Dispatch Name Role Phone Consuelo Hobbs PA-C Primary Care Provider Madi Sharp MD Unavailable [phone] Reason for Visit * Reason Comments Medication Refill Encounter Details Date Type Department Care Team (Late Contact Info) Description 08/16/2023 Refill [facility] Cancer [place] Medical Oncology at [address] [phone] Ricci Carter MD [address] [place] [address] Diarrhea, unspecified type; Carcinoid tumor of ileum (HCC) Social History Tobacco Use Types Packs/Day Years [...] Encounters Date Type Department Care Team (Late Contact Info) Description 11/13/2023 7:45 AM EDT Office Visit [facility] Medical Oncology at [address] [phone] Ricci Carter MD [address] [place], [place] [phone] 11/13/2023 8:30 AM EDT Infusion [facility] [place] [facility] Out[facility]fusion Center [address] [phone] Ricci Carter MD [address] [place], [place] [phone] Keiko Hallman MD 80 [facility] [place] [address] 11/20/2023 11:00 AM EDT Appointment [facility] Radiology [facility] [address] [place] [phone] Ricci Carter MD [address] [place], [place] [phone] 11/20/2023 11:30 AM EDT Appointment [facility] Radiology [facility] [address] [place] [phone] Ricci Carter MD [address] [place], [place] [phone] 03/05/2024 11:00 AM EST Consult [facility] Cardiology [address] [place] [address] [phone] Ricci Carter MD [address] [place], [place] [phone] Jamil Ralph MD [address] [place] [address] 05/30/2024 9:00 AM EST Office Visit [facility] Department of Internal Medicine [facility] 1210 [facility] 109 [place] [address] Consuelo Hobbs PA-C 1210 [facility] 109 [place] [address] documented as of this encounter Visit Diagnoses Diagnosis Diarrhea, unspecified type Carcinoid tumor of ileum (HCC) documented in this encounter Care Teams Operations/Dispatch Relationship Specialty Start Date End Date Consuelo Hobbs PA-C [address] [place] [phone] PCP - General 05/01/19 Madi [place] MD [address] [address] Gastroenterology 10/02/19 documented as of this encounter
--- OUTSIDE RECORDS SUMMARY | 2023-10-29 17:43 | XMS_ITS | Encounter Summary ---
Author Organization [facility] Address [address] [place] [address] Care Team Providers Care Tractor Distributor Name Role Phone Consuelo Hobbs PA-C Primary Care Provider Madi Sharp MD Unavailable [phone] Encounter Details Date Type Department Care Team (Late st Contact Info) Description 08/23/2023 Orders Only [facility] Medical Oncology at [address] [phone] Niki Giron, MAYA [address] [place] [address] Carcinoid tumor of ileum (HCC) Social History [...] Description 11/13/2023 7:45 AM EDT Office Visit [facility] Medical Oncology at [address] [phone] Ricci Carter MD [address] [place], [place] [phone] 11/13/2023 8:30 AM EDT Infusion [facility] Cancer [place] at [facility]fusion Center [address] [phone] Ricci Carter MD [address] [place], [place] [phone] Keiko Hallman MD 80 [facility] [place] [address] 11/20/2023 11:[address] [facility] Radiology Shay Mammography [address] [place] [address] [phone] Ricci Carter MD [address] [place], [place] [id number] 11/20/2023 11:[address] [facility] Radiology Shay Mammography [address] [place] [phone] Ricci Carter MD [address] [place], [place] [id number] 03/05/2024 11:00 AM EST Consult [facility] Cardiology [address] [place] [address] Ricci Carter MD [address] [place], [place] [phone] Jamil Ralph MD [address] [place] [address] [place] [address] 05/30/2024 9:00 AM EST Office Visit [facility] Department of Internal Medicine [facility] 1210 [facility] 109 [place] [address] Consuelo Hobbs PA-C [address] [phone] documented as of this encounter Visit Diagnoses Diagnosis Carcinoid tumor of ileum (HCC) documented in this encounter Care Teams Tractor Distributor Relationship Specialty Start Date End Date Consuelo Hobbs PA-C [address] [place] [phone] PCP - General 05/01/19 Madi Sharp MD [address] [place] [address] Gastroenterology 10/02/19 documented as of this encounter
--- OUTSIDE RECORDS SUMMARY | 2023-10-29 17:43 | XMS_ITS | Encounter Summary ---
Author Organization [facility] Address [address] [place] [address] Care Team Providers Care Lighter Captain Name Role Phone Consuelo Hobbs PA-C Primary Care Provider Madi Sharp MD Unavailable [phone] Reason for Visit * Reason Comments Medication Refill Encounter Details Date Type Department Care Team ([facility] Contact Info) Description 08/05/2023 Refill [facility] Department of Internal Medicine [facility] 1210 [facility] [address] [place] [phone] Consuelo Hobbs PA-C 1210 [facility] [address] [place] [phone] Migraine with status migrainosus, not intractable, unspecified [...] Upcoming Encounters Date Type Department Care Team ([facility] Contact Info) Description 11/13/2023 7:45 AM EDT Office Visit [facility] Medical Oncology at [address] [phone] Ricci Carter MD [address] [place], [place] [phone] 11/13/2023 8:30 AM EDT Infusion [facility] Cancer [place] [facility]fusion [facility] [address] [phone] Ricci Carter MD [address] [place], [place] [phone] Keiko Hallman MD [address] [facility] [place] [place] [address] 11/20/2023 11:00 AM EDT Appointment [facility] Radiology Shay Mammography [address] [place] [address] [phone] Ricci Carter MD [address] [place], [place] [id number] 11/20/2023 11:30 AM EDT Appointment [facility] Radiology Shay Mammography [address] [place] [phone] Ricci Carter MD [address] [place], [place] [address] 03/05/2024 11:00 AM EST Consult [facility] Cardiology [address] [place] [phone] Ricci Carter MD [address] [place], [place] 8[address]106 Jamil Ralph MD [address] [place] [address] 05/30/2024 9:00 AM EST Office Visit [facility] Department of Internal Medicine [facility] [address] [phone] Consuelo Hobbs PA-C [address] [address] documented as of this encounter Visit Diagnoses Diagnosis Migraine with status migrainosus, not intractable, unspecified migraine type documented in this encounter Care Teams Lighter Captain Relationship Specialty Start Date End Date Consuelo Hobbs PA-C [address] [place] [address] PCP - General 05/01/19 Madi Sharp MD [address] [address] Gastroenterology 10/02/19 documented as of this encounter
--- OUTSIDE RECORDS SUMMARY | 2023-10-29 17:43 | XMS_ITS | Encounter Summary ---
Author Organization [facility] Address [address] [place] [address] Care Team Providers Care Pound Keeper Name Role Phone Consuelo Hobbs PA-C Primary Care Provider Madi Sharp MD Unavailable [phone] Encounter Details Date Type Department Care Team (Latest Contact Info) Description 10/02/2023 Travel Social History Tobacco Use Types Packs/Day [...] Description 11/13/2023 7:45 AM EDT Office Visit [facility] Cancer [place] Medical Oncology at [address] [phone] Ricci Carter MD [address] [place] [address] 11/13/2023 8:30 AM EDT Infusion [facility] Cancer [place] at [facility] Outpatient Infusion Center [address] [phone] Ricci Carter MD [address] [place], [place] [phone] Keiko Hallman MD 80 [facility] [place] [address] 11/20/2023 11:00 AM EDT Appointment [facility] Radiology Shay Mammography [address] [place] [address] [phone] Ricci Carter MD [address] [place], [place] [phone] 11/20/2023 11:30 AM EDT Appointment [facility] Radiology Shay Mammography 35 [place] [phone] Ricci Carter MD [address] [place], [place] [id number] 03/05/2024 11:00 AM EST Consult [facility] Cardiology [address] [place] [phone] Ricci Carter MD [address] [place], [place] [phone] Jamil Ralph MD [address] [facility] [address] [place], [place] [id number] 05/30/2024 9:00 AM EST Office Visit [facility] Department of Internal Medicine [address] [place], [place] [phone] Consuelo Hobbs PA-C [address] [address] documented as of this encounter Visit Diagnoses Not on filedocumented in this encounter Care Teams Pound Keeper Relationship Specialty Start Date End Date Consuelo Hobbs PA-C [address] [phone] PCP - General 05/01/19 Madi Sharp MD [address] [place] [address] Gastroenterology 10/02/19 documented as of this encounter
--- OUTSIDE RECORDS SUMMARY | 2023-10-29 17:43 | XMS_ITS | Encounter Summary ---
Author Organization [facility] Address [address] [place] [address] Care Team Providers Care Staff Training And Development Manager Name Role Phone Consuelo Hobbs PA-C Primary Care Provider Madi Sharp MD Unavailable [phone] Reason for Visit * Episode Based Medications (Routine) - Authorized Specialty Diagnoses / Procedures Referred By Contac t Referred To Contact Diagnoses Carcinoid tumor of ileum, unspecified whether malignant (HCC) Keiko Hallman MD 80 [facility] [place] [address] Med [address] [phone] Referral ID Status Reason Start Date Expiration Date V isits Requested Visits Authorized [id number] Authorized 04/29/2022 11/27/2023 5 2 Encounter Details Date Type Department Care Team (Late st Contact Info) Description 10/02/2023 11:00 AM EDT Infusion [facility] Cancer [place] [facility] Outpatient Infusion Center [address] [phone] Ricci Carter MD [address] [place] [address] Keiko Hallman MD [address] [place] [address] [place] [address] Shital Wallace RN [address] [place] [address] Carcinoid tumor of ileum, unspecified whether malignant [...] Description 11/13/2023 7:45 AM EDT Office Visit [facility] Medical Oncology at [address] [phone] Ricci Carter MD [address] [place] [address] 11/13/2023 8:30 AM EDT Infusion [facility] [place] [facility]fusion Center [address] [phone] Ricci Carter MD [address] [place] [address] Keiko Hallman MD [address] [place] [address] [place] [address] 11/20/2023 11:00 AM EDT Appointment [facility] Radiology [address] [place] [phone] Ricci Carter MD [address] [place], [place] [phone] 11/20/2023 11:30 AM EDT Appointment [facility] Radiology Shay Mammography 35 [place] [phone] Ricci Carter MD 85 [place] [address] 03/05/2024 11:00 AM EST Consult [facility] Cardiology [address] [place] [phone] Ricci Carter MD [address] [place], [place] [phone] Jamil Ralph MD [address] [place] [facility] [address] [place] [address] 05/30/2024 9:00 AM EST Office Visit [facility] Department of Internal Medicine [facility] [address] [place] [address] Consuelo Hobbs PA-C [address] [address] documented as of this encounter Visit Diagnoses Diagnosis Carcinoid tumor of ileum, unspecified whether malignant (HCC)- Primary documented in this encounter Administered Medications Inactive Administered Medications - up to 1 most recent administrations Medication Order MAR Action Action Date Dose Rate Site octreotide (SandoSTATIN LAR) IM injection 40 mg 40 mg, Intramuscular, Once, On Mon10/02/23 at 1200, For 1 dose, Administer IM intragluteal (avoid deltoid administration). For intraMUSCULAR use ONLY. Must be administered immediately after mixing. Given 10/02/2023 11:09 AM EDT 40 mg Left Gluteal Upper Outer Quadrant documented in this encounter Care Teams Staff Training And Development Manager Relationship Specialty Start Date End Date Consuelo Hobbs PA-C [address] [address] PCP - General 05/01/19 Madi Sharp MD [address] [place] [address] Gastroenterology 10/02/19 documented as of this encounter
--- OUTSIDE RECORDS SUMMARY | 2023-10-29 17:43 | XMS_ITS | Encounter Summary ---
Author Organization [facility] Address [address] [place] [address] Care Team Providers Care Ladle Builder Name Role Phone Consuelo Hobbs PA-C Primary Care Provider Madi Sharp MD Unavailable [phone] Reason for Visit * Reason Onset Date Comments Appointment 09/18/2023 Encounter Details Date Type Department Care Team (Late st Contact Info) Description 09/18/2023 Nurse Triage [facility] Cancer [place] Medical Oncology at [address] [phone] Yesica Blanco RN 85 [place] [address] Social History Tobacco Use Types Packs/Day Years [...] PM EDT documented as of this encounter Miscellaneous Notes * Telephone Encounter - Yesica Blanco RN - 09/18/2023 9:[address] Carter notified. * Telephone Encounter - Yesica Blanco RN - 09/18/2023 9:38 AM EDT Regarding: (TJAbdirahman) cancelled her infusion due to migraine ----- Message from Na Cartagena sent at 09/18/2023 8:35 AM EDT ----- Rody called stated she has a very bad migraine and can't drive. Will not be coming to her appointment for today. documented in this encounter Plan of Treatment Upcoming Encounters Date Type Department Care Team (Late st Contact Info) Description 11/13/2023 7:45 AM EDT Office Visit [facility] Medical Oncology at [address] [phone] Ricci Carter MD 85 [place] [address] 11/13/2023 8:30 AM EDT Infusion [facility] Cancer [place] at Outpatient Infusion Center [address] [phone] Ricci Carter MD 85 [place] [address] Keiko Hallman MD [address] [facility] [place] [address] 11/20/2023 11:00 AM EDT Appointment [facility] Radiology [address] [phone] Ricci Carter MD [address] [place], [place] [phone] 11/20/2023 11:30 AM EDT Appointment [facility] Radiology Shay Mammography 35 [place] [phone] Ricci Carter MD [address] [place], [place] [address] 03/05/2024 11:00 AM EST Consult [facility] Cardiology [address] [place] [phone] Ricci Carter MD [address] [place], [place] [phone] Jamil Ralph MD 100 [address] [facility] [address] [place], [place] [address] 05/30/2024 9:00 AM EST Office Visit [facility] Department of Internal Medicine [facility] [address] [place] [address] [address] [place] [address] Consuelo Hobbs PA-C [address] [address] documented as of this encounter Visit Diagnoses Not on filedocumented in this encounter Care Teams Ladle Builder Relationship Specialty Start Date End Date Consuelo Hobbs PA-C [address] [place] [address] PCP - General 05/01/19 Madi Sharp MD 85 [facility] [address] [place] [phone] Gastroenterology 10/02/19 documented as of this encounter
--- OUTSIDE RECORDS SUMMARY | 2023-10-29 17:43 | XMS_ITS | Encounter Summary ---
Author Organization [facility] Address [address] [place] [address] Care Team Providers Care Customer Relationship Specialist Name Role Phone Consuelo Hobbs PA-C Primary Care Provider Madi Sharp MD Unavailable [phone] Reason for Visit * Reason Onset Date Comments Medication Refill 08/10/2023 Encounter Details Date Type Department Care Team (Late st Contact Info) Description 08/10/2023 Refill [facility] Cancer [place] Medical Oncology at [address] [phone] Ricci Carter MD [address] [place] [address] Carcinoid tumor of ileum (HCC) Social History [...] Description 11/13/2023 7:45 AM EDT Office Visit [facility] Medical Oncology at [address] [phone] Ricci Carter MD [address] [place], [place] [phone] 11/13/2023 8:30 AM EDT Infusion [facility] Cancer [place] at [facility] Outpatient Infusion Center [address] [phone] Ricci Carter MD [address] [place], [place] [phone] Keiko Hallman MD 80 [facility] [place] [address] 11/20/2023 11:00 AM EDT Appointment [facility] Radiology Shay Mammography [address] [place] [phone] Ricci Carter MD [address] [place], [place] [address]76106 11/20/2023 11:30 AM EDT Appointment [facility] Radiology Shay Mammography [address] [place] [address] [phone] Ricci Carter MD [address] [place], [place] [address] 03/05/2024 11:00 AM EST Consult [facility] Cardiology [address] [place] [address] [phone] Ricci Carter MD [address] [place], [place] [phone] Jamil Ralph MD [address] [place] [address] 05/30/2024 9:00 AM EST Office Visit [facility] Department of Internal Medicine [facility] 1210 [facility] [address] [place] [address] Consuelo Hobbs PA-C 1210 [facility] 109 [place] [address] documented as of this encounter Visit Diagnoses Diagnosis Carcinoid tumor of ileum (HCC) documented in this encounter Care Teams Customer Relationship Specialist Relationship Specialty Start Date End Date Consuelo Hobbs PA-C [address] [place] [address] PCP - General 05/01/19 Madi Sharp MD [address] [address] Gastroenterology 10/02/19 documented as of this encounter
--- OUTSIDE RECORDS SUMMARY | 2023-10-29 17:43 | XMS_ITS | Encounter Summary ---
Author Organization [facility] Address [address] [place] [address] Care Team Providers Care Geometry Tutor Name Role Phone Consuelo Hobbs PA-C Primary Care Provider Madi Sharp MD Unavailable [phone] Encounter Details Date Type Department Care Team (Late st Contact Info) Description 08/24/2023 Scanned Document [facility] Medical Oncology at [address] [phone] Provider, Dodie, [address] [place] [address] Social History Tobacco Use Types Packs/Day Years [...] Description 11/13/2023 7:45 AM EDT Office Visit [facility] Medical Oncology at [place] [phone] Ricci Carter MD 85 [place] [phone] 11/13/2023 8:30 AM EDT Infusion [facility] Cancer [place] at [facility] Outpatient Infusion Center [address] [phone] Ricci Carter MD 85 [place] [address] Keiko Hallman MD 80 [facility] [address] 11/20/2023 11:00 AM EDT Appointment [facility] Radiology Shay Mammography 35 [place] [phone] Ricci Carter MD 85 [place], [place] [address] 11/20/2023 11:30 AM EDT Appointment [facility] Radiology Shay Mammography 35 [place] [phone] Ricci Carter MD 85 [place], [place] [address]46[address] 03/05/2024 11:00 AM EST Consult [facility] Cardiology [place] [address] [facility] [address] [place] [phone] Ricci Carter MD 85 [place] [address] Jamil Ralph MD 100 [place] [facility] [address] [place], [place] [address] 05/30/2024 9:00 AM EST Office Visit [facility] Department of Internal Medicine [facility] [address] [place] [address] Consuelo Hobbs PA-C [address] [phone] documented as of this encounter Visit Diagnoses Not on filedocumented in this encounter Care Teams Geometry Tutor Relationship Specialty Start Date End Date Consuelo Hobbs PA-C [address] [place] [address] [phone] PCP - General 05/01/19 Madi Sharp MD [address] [place] [address] Gastroenterology 10/02/19 documented as of this encounter
--- OUTSIDE RECORDS SUMMARY | 2023-10-29 17:43 | XMS_ITS | Encounter Summary ---
Author Organization [facility] Address 100 [place] [address] Care Team Providers Care Ship Surveyor Name Role Phone Consuelo Hobbs PA-C Primary Care Provider Madi Sharp MD Unavailable [phone] Encounter Details Date Type Department Care Team (Late st Contact Info) Description 07/14/2023 Scanned Document [facility] [address] [facility] [place] [phone] Madi Sharp MD [address] [place] [address] Social History Tobacco Use Types Packs/Day Years [...] Description 11/13/2023 7:45 AM EDT Office Visit [facility] Cancer [place] Medical Oncology at [address] [phone] Ricci Carter MD 85 [place] [address] 11/13/2023 8:30 AM EDT Infusion [facility] Cancer [place] at [facility] Outpatient Infusion Center [address] [phone] Ricci Carter MD 85 [place] [phone] Keiko Hallman MD 80 [facility] [place] [address] 11/20/2023 11:00 AM EDT Appointment [facility] Radiology Shay Mammography [address] [place] [phone] Ricci Carter MD [address] [place], [place] [address] 11/20/2023 11:30 AM EDT Appointment [facility] Radiology Shay Mammography [address] [place] [phone] Ricci Carter MD [address] [place], [place] [address] 03/05/2024 11:00 AM EST Consult [facility] Cardiology [address] [place] [phone] Ricci Carter MD 85 [place] [address] Jamil Ralph MD [address] [facility] [address] [place] [address] 05/30/2024 9:00 AM EST Office Visit [facility] Physicians Department of Internal Medicine [facility] 1210 [facility] 109 [place] [address] Consuelo Hobbs PA-C [address] [place] [address] documented as of this encounter Visit Diagnoses Not on filedocumented in this encounter Care Teams Ship Surveyor Relationship Specialty Start Date End Date Consuelo Hobbs PA-C [address] [place] [phone] PCP - General 05/01/19 Madi Sharp MD [address] [place] [address] Gastroenterology 10/02/19 documented as of this encounter
--- OUTSIDE RECORDS SUMMARY | 2023-10-29 17:43 | XMS_ITS | Encounter Summary ---
Author Organization [facility] Address 100 [place] [address] Care Team Providers Care Press Operator Automatic Name Role Phone Consuelo Hobbs PA-C Primary Care Provider Madi Sharp MD Unavailable [phone] Encounter Details Date Type Department Care Team (Latest Contact Info) Description 08/08/2023 Travel Social History Tobacco Use Types Packs/Day [...] EDT Office Visit [facility] Cancer [place] Medical Oncology at [address] [phone] Ricci Carter MD [address] [place] [address] 11/13/2023 8:30 AM EDT Infusion [facility] Cancer [place] at [facility] Outpatient Infusion Center [address] [phone] Ricci Carter MD [address] [place], [place] [phone] Keiko Hallman MD 80 [facility] [place] [address] 11/20/2023 11:00 AM EDT Appointment [facility] Shay Mammography [address] [place] [phone] Ricci Carter MD [address] [place], [place] [address]106 11/20/2023 11:30 AM EDT Appointment [facility] Shay Mammography 35 [place] [phone] Ricci Carter MD [address] [place], [place] [address]24106 03/05/2024 11:00 AM EST Consult [facility] Cardiology [address] [place] [phone] Ricci Carter MD [address] [place], [place] [address] Jamil Ralph MD [address] [facility] [address] [place], [place] [phone] 05/30/2024 9:00 AM EST Office Visit [facility] Department of Internal Medicine [address] [place], [place] [phone] Consuelo Hobbs PA-C [address] [address] documented as of this encounter Visit Diagnoses Not on filedocumented in this encounter Care Teams Press Operator Automatic Relationship Specialty Start Date End Date Consuelo Hobbs PA-C [address] [phone] PCP - General 05/01/19 Madi Sharp MD [address] [place] [address] Gastroenterology 10/02/19 documented as of this encounter
--- OUTSIDE RECORDS SUMMARY | 2023-10-29 17:43 | XMS_ITS | Encounter Summary ---
Author Organization [facility] Address [address] [place] [address] Care Team Providers Care Merry Go Round Attendant Name Role Phone Consuelo Hobbs PA-C Primary Care Provider Madi Sharp MD Unavailable [phone] Reason for Visit * Episode Based Medications (Routine) - Authorized Specialty Diagnoses / Procedures Referred By Contac t Referred To Contact Diagnoses Carcinoid tumor of ileum, unspecified whether malignant (HCC) Keiko Hallman MD 80 [facility] [place] [address] Med Onc Ci [address] [address] Referral ID Status Reason Start Date Expiration Date V isits Requested Visits Authorized [id number] Authorized 04/29/2022 11/27/2023 5 2 Encounter Details Date Type Department Care Team (Late st Contact Info) Description 08/29/2023 9:00 AM EDT Infusion [facility] [place] at [facility] [address] [phone] Ricci Carter MD [address] [place] [address] Keiko Hallman MD 80 [facility] [place] [address] Allison Contreras RN 80 [place] [address] Carcinoid tumor of ileum, unspecified whether malignant [...] Sign Reading Time Taken Comments Blood Pressure 136/66 08/29/2023 9:06 AM EDT Pulse 85 08/29/2023 9:06 AM EDT Temperature 35.8 ??C (96.5 ??F) 08/29/2023 9:06 AM ED T Respiratory Rate 18 08/29/2023 9:06 AM EDT Oxygen Saturation 99% 08/29/2023 9:06 AM EDT Inhaled Oxygen Concentration - - Weight 76.5 kg (168 lb 11.2 oz) 08/29/2023 9:06 AM EDT Height 160 cm (5' 2.99) 08/29/2023 9:06 AM EDT Body Mass Index 29.89 08/29/2023 9:06 AM EDT documented in this encounter Plan of Treatment Upcoming Encounters Date Type Department Care Team (Late st Contact Info) Description 11/13/2023 7:45 AM EDT Office Visit [facility] [place] Medical Oncology at [address] [phone] Ricci Carter MD [address] [place] [address] 11/13/2023 8:30 AM EDT Infusion [facility] [place] [facility] [address] [phone] Ricci Carter MD [address] [place] [address] Keiko Hallman MD 80 [facility] [place] [address] 11/20/2023 11:00 AM EDT Appointment [facility] Radiology Sh[facility] Mammography [address] [place] [address] [phone] Ricci Carter MD [address] [place], [place] [phone] 11/20/2023 11:30 AM EDT Appointment [facility] Radiology [facility] Mammography [address] [place] [address] [phone] Ricci Carter MD 85 [place] [address] 03/05/2024 11:00 AM EST Consult [facility] Cardiology [address] [place] [phone] Ricci Carter MD [address] [place], [place] [phone] Jamil Ralph MD [address] [facility] [address] [place] [address] 05/30/2024 9:00 AM EST Office Visit [facility] Department of Internal Medicine [address] [place], [place] [phone] Consuelo Hobbs PA-C [address] [phone] documented as of this encounter Visit Diagnoses Diagnosis Carcinoid tumor of ileum, unspecified whether malignant (HCC)- Primary documented in this encounter Administered Medications Inactive Administered Medications - up to 1 most recent administrations Medication Order MAR Action Action Date Dose Rate Site octreotide (SandoSTATIN LAR) IM injection 40 mg 40 mg, Intramuscular, Once, On Mon08/29/23 at 1000, For 1 dose, Administer IM intragluteal (avoid deltoid administration). For intraMUSCULAR use ONLY. Must be administered immediately after mixing. Given 08/29/2023 9:10 AM EDT 40 mg Left Gluteal Upper Outer Quadrant documented in this encounter Care Teams Merry Go Round Attendant Relationship Specialty Start Date End Date Consuelo Hobbs PA-C [address] [place] [id number] PCP - General 05/01/19 Madi Sharp MD [address] [place] [address] Gastroenterology 10/02/19 documented as of this encounter
--- OUTSIDE RECORDS SUMMARY | 2023-10-29 17:43 | XMS_ITS | Encounter Summary ---
Author Organization [facility] Address [address] [place] [address] Care Team Providers Care Dealer Card Room Name Role Phone Consuelo Hobbs PA-C Primary Care Provider Madi Sharp MD Unavailable [phone] Encounter Details Date Type Department Care Team (Latest Contact Info) Description 08/29/2023 Travel Social History Tobacco Use Types Packs/Day [...] 7:45 AM EDT Office Visit [facility] Cancer [place] Medical Oncology at [address] [phone] Ricci Carter MD [address] [place] [address] 11/13/2023 8:30 AM EDT Infusion [facility] [place] at [facility]fusion [facility] [address] [phone] Ricci Carter MD [address] [place], [place] [phone] Keiko Hallman MD 80 [facility] [place] [address] 11/20/2023 11:[address] [facility] Radiology Shay Mammography [address] [place] [address] [phone] Ricci Carter MD [address] [place], [place] [id number] 11/20/2023 11:[address] [facility] Radiology Shay Mammography 35 [place] [phone] Ricci Carter MD [address] [place], [place] [phone] 03/05/2024 11:00 AM EST Consult [facility] Cardiology [address] [place] [phone] Ricci Carter MD [address] [place], [place] [phone] Jamil Ralph MD [address] [facility] [address] [place], [place] [phone] 05/30/2024 9:00 AM EST Office Visit [facility] Department of Internal Medicine [address] [place], [place] [phone] Consuelo Hobbs PA-C [address] [address] documented as of this encounter Visit Diagnoses Not on filedocumented in this encounter Care Teams Dealer Card Room Relationship Specialty Start Date End Date Consuelo Hobbs PA-C [address] [phone] PCP - General 05/01/19 Madi Sharp MD [address] [place] [address] Gastroenterology 10/02/19 documented as of this encounter
--- OUTSIDE RECORDS SUMMARY | 2023-10-29 17:43 | XMS_ITS | Encounter Summary ---
Author Organization [facility] Address [address] [place] [address] Care Team Providers Care [employer] Sales Engineer Name Role Phone Consuelo Hobbs PA-C Primary Care Provider Madi Sharp MD Unavailable [phone] Reason for Visit * Reason Comments Medication Refill Encounter Details Date Type Department Care Team ([facility] Contact Info) Description 09/18/2023 Refill [facility] Department of Internal Medicine [facility] 1210 [facility] [address] [place] [phone] Consuelo Hobbs PA-C 1210 [facility] [address] [place] [phone] Migraine with status migrainosus, not intractable, unspecified [...] Upcoming Encounters Date Type Department Care Team ([facility] Contact Info) Description 11/13/2023 7:45 AM EDT Office Visit [facility] Medical Oncology at [address] [phone] Ricci Carter MD [address] [place], [place] [phone] 11/13/2023 8:30 AM EDT Infusion [facility] Cancer [place] at [facility] Outpatient Infusion Center [address] [phone] Ricci Carter MD [address] [place], [place] [phone] Keiko Hallman MD 80 [facility] [place] [address] 11/20/2023 11:00 AM EDT Appointment [facility] Radiology Shay Mammography [address] [place] [phone] Ricci Carter MD [address] [place], [place] [phone] 11/20/2023 11:30 AM EDT Appointment [facility] Radiology Shay Mammography [address] [place] [phone] Ricci Carter MD [address] [place], [place] [phone] 03/05/2024 11:00 AM EST Consult [facility] Cardiology [address] [place] [phone] Ricci Carter MD [address] [place], [place] [phone] Jamil Ralph MD [address] [place] [address] 05/30/2024 9:00 AM EST Office Visit [facility] Department of Internal Medicine [facility] [address] [phone] Consuelo Hobbs PA-C [address] [address] documented as of this encounter Visit Diagnoses Diagnosis Migraine with status migrainosus, not intractable, unspecified migraine type documented in this encounter Care Teams [employer] Sales Engineer Relationship Specialty Start Date End Date Consuelo Hobbs PA-C [address] [place] [address] PCP - General 05/01/19 Madi Sharp MD [address] [address] Gastroenterology 10/02/19 documented as of this encounter
--- OUTSIDE RECORDS SUMMARY | 2023-10-29 17:43 | XMS_ITS | Encounter Summary ---
Author Organization [facility] Address [address] [place] [address] Care Team Providers Care Phthalic Acid Purifier Name Role Phone Consuelo Hobbs PA-C Primary Care Provider Madi Sharp MD Unavailable [phone] Reason for Visit * Reason Comments Injections sandostatin * Episode Based Medications (Routine) - Authorized Specialty Diagnoses / Procedures Referred By Vineet campbell Referred To Contact Diagnoses Carcinoid tumor of ileum, unspecified whether malignant (HCC) Keiko Hallman MD 80 [facility] [place] [address] [phone] Referral ID Status Reason Start Date Expiration Date V isits Requested Visits Authorized [id number] Authorized 04/29/2022 11/27/2023 5 2 Encounter Details Date Type Department Care Team (Late st Contact Info) Description 07/17/2023 2:45 PM EDT Infusion [facility] Cancer [place] at [facility] Outpatient Infusion Center [address] [phone] Ricci Carter MD [address] [place] [address] Keiko Hallman MD 80 [facility] [place] [address] Jayshree Araiza RN [address] [place] [address] Carcinoid tumor of ileum, unspecified whether malignant [...] Sign Reading Time Taken Comments Blood Pressure 159/74 07/17/2023 2:48 PM EDT Pulse 82 07/17/2023 2:48 PM EDT Temperature 36.4 ??C (97.6 ??F) 07/17/2023 2:48 PM ED T Respiratory Rate 16 07/17/2023 2:48 PM EDT Oxygen Saturation 98% 07/17/2023 2:48 PM EDT Inhaled Oxygen Concentration - - Weight 76.1 kg (167 lb 11.2 oz) 07/17/2023 2:48 PM EDT Height - - Body Mass Index 29.71 06/27/2023 8:34 AM EDT documented in this encounter Plan of Treatment Upcoming Encounters Date Type Department Care Team (Late st Contact Info) Description 11/13/2023 7:45 AM EDT Office Visit [facility] Cancer [place] Medical Oncology at [facility] [address] [place] [address] Ricci Carter MD [address] [place] [address] 11/13/2023 8:30 AM EDT Infusion [facility] Cancer [place] at [facility] Outpatient Infusion Center [address] [phone] Ricci Carter MD [address] [place], [place] [phone] Keiko Hallman MD 80 [facility] [place] [address] 11/20/2023 11:00 AM EDT Appointment [facility] Radiology Shay Mammography [address] [place] [address] [phone] Ricci Carter MD [address] [place], [place] [phone] 11/20/2023 11:30 AM EDT Appointment [facility] Radiology Shay Mammography [address] [place] [address] [phone] Ricci Carter MD [address] [place], [place] [phone] 03/05/2024 11:00 AM EST Consult [facility] Cardiology [address] [place] [phone] Ricci Carter MD [address] [place], [place] [phone] Jamil Ralph MD [address] [facility] [address] [place], [place] [phone] 05/30/2024 9:00 AM EST Office Visit [facility] Department of Internal Medicine [address] [place] [address] Consuelo Hobbs PA-C [address] [address] documented as of this encounter Visit Diagnoses Diagnosis Carcinoid tumor of ileum, unspecified whether malignant (HCC)- Primary documented in this encounter Administered Medications Inactive Administered Medications - up to 1 most recent administrations Medication Order MAR Action Action Date Dose Rate Site octreotide (SandoSTATIN LAR) IM injection 40 mg 40 mg, Intramuscular, Once, On 07/17/23 at 1530, For 1 dose, Administer IM intragluteal (avoid deltoid administration). For intraMUSCULAR use ONLY. Must be administered immediately after mixing. Given 07/17/2023 3:02 PM EDT 40 mg Left Gluteal Upper Outer Quadrant documented in this encounter Care Teams Phthalic Acid Purifier Relationship Specialty Start Date End Date Consuelo Hobbs PA-C [address] [address] PCP - General 05/01/19 Madi Sharp MD [address] [place] [address] Gastroenterology 10/02/19 documented as of this encounter
--- OUTSIDE RECORDS SUMMARY | 2023-10-29 17:43 | XMS_ITS | Encounter Summary ---
Author Organization [facility] Address 100 [place] [address] Care Team Providers Care As400 Administrator Name Role Phone Consuelo Hobbs PA-C Primary Care Provider Madi Sharp MD Unavailable [phone] Reason for Visit * Reason Comments Injections * Episode Based Medications (Routine) - Authorized Specialty Diagnoses / Procedures Referred By Contbalbir t Referred To Contact Diagnoses Carcinoid tumor of ileum, unspecified whether malignant (HCC) Keiko Hallman MD 80 [facility] [place] [address] Med Onc Ci [address] [address] Referral ID Status Reason Start Date Expiration Date V isits Requested Visits Authorized [id number] Authorized 04/29/2022 11/27/2023 5 2 Encounter Details Date Type Department Care Team (Late st Contact Info) Description 08/08/2023 9:00 AM EDT Infusion [facility] [place] at [facility] Outpatient Infusion Center [address] [phone] Ricci Carter MD [address] [place] [address] Keiko Hallman MD 80 [facility] [place] [address] Brittany Goins RN 80 [place] [address] Carcinoid tumor of ileum, unspecified whether malignant [...] Sign Reading Time Taken Comments Blood Pressure 177/79 08/08/2023 8:55 AM EDT Pulse 87 08/08/2023 8:55 AM EDT Temperature 36.4 ??C (97.6 ??F) 08/08/2023 8:55 AM ED T Respiratory Rate 16 08/08/2023 8:55 AM EDT Oxygen Saturation 98% 08/08/2023 8:55 AM EDT Inhaled Oxygen Concentration - - Weight 76.3 kg (168 lb 4.8 oz) 08/08/2023 8:55 A M EDT Height 160 cm (5' 2.99) 08/08/2023 8:55 AM EDT Body Mass Index 29.82 08/08/2023 8:55 AM EDT documented in this encounter Plan of Treatment Upcoming Encounters Date Type Department Care Team (Late st Contact Info) Description 11/13/2023 7:45 AM EDT Office Visit [facility] [place] Medical Oncology at [address] [phone] Ricci Carter MD [address] [place] [address] 11/13/2023 8:30 AM EDT Infusion [facility] [place] at [facility] Outpatient Infusion Center [address] [phone] Ricci Carter MD [address] [place], [place] [phone] Keiko Hallman MD 80 [facility] [place] [address] 11/20/2023 11:00 AM EDT Appointment [facility] Radiology Shay Mammography 35 [place] [phone] Ricci Carter MD [address] [place] [address] 11/20/2023 11:30 AM EDT Appointment [facility] Radiology Shay Mammography 35 [place] [phone] Ricci Carter MD [address] [place], [place] [phone] 03/05/2024 11:00 AM EST Consult [facility] Cardiology [address] [place] [phone] Ricci Carter MD [address] [place], [place] [address] Jamil Ralph MD [address] [place] [facility] [address] [place] [address] 05/30/2024 9:00 AM EST Office Visit [facility] Department of Internal Medicine [facility] 1210 [facility] [address] [place] [address] Consuelo Hobbs PA-C [address] [address] documented as of this encounter Visit Diagnoses Diagnosis Carcinoid tumor of ileum, unspecified whether malignant (HCC)- Primary documented in this encounter Administered Medications Inactive Administered Medications - up to 1 most recent administrations Medication Order MAR Action Action Date Dose Rate Site octreotide (SandoSTATIN LAR) IM injection 40 mg 40 mg, Intramuscular, Once, On Mon08/08/23 at 0930, For 1 dose, Administer IM intragluteal (avoid deltoid administration). For intraMUSCULAR use ONLY. Must be administered immediately after mixing. Given 08/08/2023 9:00 AM EDT 40 mg Left Gluteal Upper Outer Quadrant documented in this encounter Care Teams As400 Administrator Relationship Specialty Start Date End Date Consuelo Hobbs PA-C [address] [place] [address] PCP - General 05/01/19 Madi Sharp MD [address] [place] [address] Gastroenterology 10/02/19 documented as of this encounter
--- OUTSIDE RECORDS SUMMARY | 2023-10-29 17:43 | XMS_ITS | Encounter Summary ---
Author Organization [facility] Address 100 [place] [address] Care Team Providers Care Director [employer] Name Role Phone Consuelo Hobbs PA-C Primary Care Provider Madi Sharp MD Unavailable [phone] Encounter Details Date Type Department Care Team (Latest Contact Info) Description 07/17/2023 Travel Social History Tobacco Use Types Packs/Day [...] Description 11/13/2023 7:45 AM EDT Office Visit [facility] Cancer [place] Medical Oncology at [address] [phone] Ricci Carter MD [address] [place] [address] 11/13/2023 8:30 AM EDT Infusion [facility] Cancer [place] at [facility] Outpatient Infusion Center [address] [phone] Ricci Carter MD [address] [place], [place] [phone] Keiko Hallman MD 80 [facility] [place] [address] 11/20/2023 11:00 AM EDT Appointment [facility] Radiology Shay Mammography [address] [place] [address] [phone] Ricci Carter MD [address] [place], [place] [phone] 11/20/2023 11:30 AM EDT Appointment [facility] Radiology Shay Mammography 35 [place] [phone] Ricci Carter MD [address] [place], [place] [address] 03/05/2024 11:00 AM EST Consult [facility] Cardiology [address] [place] [phone] Ricci Carter MD [address] [place], [place] [phone] Jamil Ralph MD [address] [place] [facility] [address] [place], [place] [phone] 05/30/2024 9:00 AM EST Office Visit [facility] Department of Internal Medicine [address] [place], [place] [phone] Consuelo Hobbs PA-C [address] [address] documented as of this encounter Visit Diagnoses Not on filedocumented in this encounter Care Teams Director For [employer] Relationship Specialty Start Date End Date Consuelo Hobbs PA-C [address] [phone] PCP - General 05/01/19 Madi Sharp MD [address] [place] [address] Gastroenterology 10/02/19 documented as of this encounter
--- OUTSIDE RECORDS SUMMARY | 2023-10-29 17:43 | XMS_ITS | Encounter Summary ---
Author Organization [facility] Address 100 [place] [address] Care Team Providers Care Counseling Director Name Role Phone Consuelo Hobbs PA-C Primary Care Provider Madi Sharp MD Unavailable [phone] Reason for Visit * Reason Comments Medication Refill Encounter Details Date Type Department Care Team (Late Contact Info) Description 08/16/2023 Refill [facility] Cancer [place] Medical Oncology at [address] [phone] Ricci Carter MD [address] [place] [address] Diarrhea, unspecified type; Carcinoid tumor of ileum [...] Description 11/13/2023 7:45 AM EDT Office Visit [facility] Medical Oncology at [address] [phone] Ricci Carter MD [address] [place], [place] [phone] 11/13/2023 8:30 AM EDT Infusion [facility] Cancer [place] at [facility] Outpatient Infusion Center [address] [phone] Ricci Carter MD [address] [place], [place] [phone] Keiko Hallman MD 80 [facility] [place] [address] 11/20/2023 11:00 AM EDT Appointment [facility] Radiology Shay Mammography [address] [place] [phone] Ricci Carter MD [address] [place] [place], [place] [phone] 11/20/2023 11:30 AM EDT Appointment [facility] Radiology Shay Mammography [address] [place] [phone] Ricci Carter MD [address] [place] [place], [place] [phone] 03/05/2024 11:00 AM EST Consult [facility] Cardiology [address] [place] [phone] Ricci Carter MD [address] [place], [place] [phone] Jamil Ralph MD [address] [place] [address] 05/30/2024 9:00 AM EST Office Visit [facility] Department of Internal Medicine [facility] 1210 [facility] 109 [place] [address] Consuelo Hobbs PA-C 1210 [facility] 109 [place] [address] documented as of this encounter Visit Diagnoses Diagnosis Diarrhea, unspecified type Carcinoid tumor of ileum (HCC) documented in this encounter Care Teams Counseling Director Relationship Specialty Start Date End Date Consuelo Hobbs PA-C [address] [place] [address] PCP - General 05/01/19 Madi Sharp MD [address] [address] Gastroenterology 10/02/19 documented as of this encounter
--- OUTSIDE RECORDS SUMMARY | 2023-10-29 17:44 | XMS_ITS | Encounter Summary ---
Author Organization [facility] Address [address] [place] [address] Care Team Providers Care Readers' Advisory Service Librarian Name Role Phone Consuelo Hobbs PA-C Primary Care Provider Madi Sharp MD Unavailable [phone] Reason for Visit * Reason Comments Medication Refill Encounter Details Date Type Department Care Team (Late Contact Info) Description 02/17/2023 Refill [facility] Cancer [place] Medical Oncology at [address] [phone] Ricci Carter MD [address] [place] [address] Diarrhea, unspecified type; Carcinoid tumor of ileum (HCC) Social History Tobacco Use Types Packs/Day Years Used Date Smoking Tobacco: Former Cigarettes 0.3 22 Q uit: 05/17/2021 Smokeless Tobacco: Never Alcohol Use Standard Drinks/Week Comments Yes 0 (1 standard drink = 0.6 oz pur e alcohol) Sex and Gender Information Value Date Recorded Sex Assigned at Female 09/16/2022 9:31 AM EDT Gender Identity Female 09/16/2022 9:31 AM EDT Sexual Orientation Heterosexual (straight) 11/09 1:27 PM EDT documented as of this encounter Plan of Treatment Upcoming Encounters Date Type Department Care Team (Late Contact Info) Description 11/13/2023 7:45 AM EDT Office Visit [facility] Medical Oncology at [address] [phone] Ricci Carter MD [address] [place] [address] 11/13/2023 8:30 AM EDT Infusion [facility] Cancer [place] at [facility] Out[facility] Infusion Center [address] [phone] Ricci Carter MD [address] [place] [place] [phone] Keiko Hallman MD 80 [facility] [place] [address] 11/20/2023 11:00 AM EDT Appointment [facility] Radiology Shay Mammography [address] [place] [address] [phone] Ricci Carter MD [address] [place] [place] [id number] 11/20/2023 11:30 AM EDT Appointment [facility] Radiology Shay Mammography [address] [place] [phone] Ricci Carter MD [address] [place] [address] 03/05/2024 11:00 AM EST Consult [facility] Cardiology [address] [place] [address] [phone] Ricci Carter MD [address] [place] [address] Jamil Ralph MD [address] [place] [address] 05/30/2024 9:00 AM EST Office Visit [facility] Department of Internal Medicine [facility] 1210 [facility] 109 [place] [address] Consuelo Hobbs PA-C 1210 [facility] 109 [place] [address] documented as of this encounter Visit Diagnoses Diagnosis Diarrhea, unspecified type Carcinoid tumor of ileum (HCC) documented in this encounter Care Teams Readers' Advisory Service Librarian Relationship Specialty Start Date End Date Consuelo Hobbs PA-C [address] [place] [address] PCP - General 05/01/19 Madi Sharp MD [address] [address] Gastroenterology 10/02/19 documented as of this encounter
--- OUTSIDE RECORDS SUMMARY | 2023-10-29 17:44 | XMS_ITS | Encounter Summary ---
Author Organization [facility] Address [address] [place] [address] Care Team Providers Care Metal Door Assembler Name Role Phone Consuelo Hobbs PA-C Primary Care Provider Madi Sharp MD Unavailable [phone] Encounter Details Date Type Department Care Team (Latest Contact Info) Description 06/06/2023 Travel Social History Tobacco Use Types Packs/Day [...] Visit [facility] Cancer [place] Medical Oncology at [address] [phone] Ricci Carter MD [address] [place] [address] 11/13/2023 8:30 AM EDT Infusion [facility] Cancer [place] at [facility] Outpatient Infusion Center [address] [phone] Ricci Carter MD [address] [place], [place] [phone] Keiko Hallman MD 80 [facility] [place] [address] 11/20/2023 11:00 AM EDT Appointment [facility] Radiology Shay Mammography [address] [place] [address] [phone] Ricci Carter MD [address] [place], [place] [id number] 11/20/2023 11:30 AM EDT Appointment [facility] Radiology Shay Mammography 35 [place] [phone] Ricci Carter MD [address] [place], [place] [address] 03/05/2024 11:00 AM EST Consult [facility] Cardiology [address] [place] [phone] Ricci Carter MD [address] [place], [place] [phone] Jamil Ralph MD [address] [facility] [address] [place], [place] [phone] 05/30/2024 9:00 AM EST Office Visit [facility] Department of Internal Medicine [address] [place], [place] [phone] Consuelo Hobbs PA-C [address] [address] documented as of this encounter Visit Diagnoses Not on filedocumented in this encounter Care Teams Metal Door Assembler Relationship Specialty Start Date End Date Consuelo Hobbs PA-C [address] [phone] PCP - General 05/01/19 Madi Sharp MD [address] [place] [address] Gastroenterology 10/02/19 documented as of this encounter
--- OUTSIDE RECORDS SUMMARY | 2023-10-29 17:44 | XMS_ITS | Encounter Summary ---
Author Organization [facility] Address [address] [place] [address] Care Team Providers Care Stiff Leg Derrick Operator Name Role Phone Consuelo Hobbs PA-C Primary Care Provider Madi Sharp MD Unavailable [phone] Encounter Details Date Type Department Care Team (Latest Contact Info) Description 01/31/2023 Travel Social History Tobacco Use Types Packs/Day [...] [facility] Medical Oncology at [address] [phone] Ricci Carter MD [address] [place] [address] 11/13/2023 8:30 AM EDT Infusion [facility] Cancer [place] at [facility] Outpatient Infusion Center [place] [address] [place] [phone] Ricci Carter MD [address] [place], [place] [phone] Keiko Hallman MD 80 [facility] [place] [address] 11/20/2023 11:00 AM EDT Appointment [facility] Radiology Shay Mammography [address] [place] [address] [phone] Ricci Carter MD [address] [place], [place] [phone] 11/20/2023 11:30 AM EDT Appointment [facility] Radiology Shay Mammography 35 [place] [phone] Ricci Carter MD [address] [place], [place] [address] 03/05/2024 11:00 AM EST Consult [facility] Cardiology [address] [place] [phone] Ricci Carter MD [address] [place], [place] [address] Jamil Ralph MD [address] [facility] [address] [place], [place] [address] 05/30/2024 9:00 AM EST Office Visit [facility] Department of Internal Medicine [address] [place] [address] Consuelo Hobbs PA-C [address] [address] documented as of this encounter Visit Diagnoses Not on filedocumented in this encounter Care Teams Stiff Leg Derrick Operator Relationship Specialty Start Date End Date Consuelo Hobbs PA-C [address] [phone] PCP - General 05/01/19 Madi Sharp MD [address] [place] [address] Gastroenterology 10/02/19 documented as of this encounter
--- OUTSIDE RECORDS SUMMARY | 2023-10-29 17:44 | XMS_ITS | Encounter Summary ---
Author Organization [facility] Address [address] [place] [address] Care Team Providers Care Hardscape Foreman Name Role Phone Consuelo Hobbs PA-C Primary Care Provider Madi Sharp MD Unavailable [phone] Reason for Visit * Reason Onset Date Comments Medication Refill 06/26/2023 Encounter Details Date Type Department Care Team (Late st Contact Info) Description 06/26/2023 Refill [facility] Department of Internal Medicine [facility] 1210 [facility] [address] [place] [phone] Consuelo Hobbs PA-C 1210 [facility] [address] [place] [phone] Migraine with status migrainosus, not intractable, unspecified [...] Description 11/13/2023 7:45 AM EDT Office Visit [facility] Medical Oncology at [address] [phone] Ricci Carter MD [address] [place], [place] [phone] 11/13/2023 8:30 AM EDT Infusion [facility] Cancer [place] at [facility] Outpatient Infusion Center [address] [phone] Ricci Carter MD [address] [place], [place] [address] Keiko Hallman MD 80 [facility] [place] [address] 11/20/2023 11:00 AM EDT Appointment [facility] Radiology Shay Mammography [address] [place] [address] [phone] Ricci Carter MD [address] [place], [place] [phone] 11/20/2023 11:30 AM EDT Appointment [facility] Radiology Shay Mammography [address] [place] [phone] Ricci Carter MD [address] [place], [place] [address] 03/05/2024 11:00 AM EST Consult [facility] Cardiology [address] [place] [phone] Ricci Carter MD [address] [place] [address] Jamil Ralph MD [address] [facility] [address] [place] [phone] 05/30/2024 9:00 AM EST Office Visit [facility] Department of Internal Medicine [facility] 1210 [facility] 109 [place] [address] Consuelo Hobbs PA-C 1210 [place] [address] documented as of this encounter Visit Diagnoses Diagnosis Migraine with status migrainosus, not intractable, unspecified migraine type documented in this encounter Care Teams Hardscape Foreman Relationship Specialty Start Date End Date Consuelo Hobbs PA-C [address] [place] [address] PCP - General 05/01/19 Madi Sharp MD [address] [place], [place] [phone] Gastroenterology 10/02/19 documented as of this encounter
--- OUTSIDE RECORDS SUMMARY | 2023-10-29 17:44 | XMS_ITS | Encounter Summary ---
Author Organization [facility] Address [address] [place] [address] Care Team Providers Care Geography Teacher Name Role Phone Consuelo Hobbs PA-C Primary Care Provider Madi Sharp MD Unavailable [phone] Reason for Visit * Reason Comments Injections * Episode Based Medications (Routine) - Authorized Specialty Diagnoses / Procedures Referred By Contbalbir t Referred To Contact Diagnoses Carcinoid tumor of ileum, unspecified whether malignant (HCC) Keiko Hallman MD 80 [facility] [place] [address] [phone] Referral ID Status Reason Start Date Expiration Date V isits Requested Visits Authorized [id number] Authorized 04/29/2022 11/27/2023 5 2 Encounter Details Date Type Department Care Team (Late st Contact Info) Description 03/21/2023 9:00 AM EST Infusion [facility] Cancer [place] at [facility] Outpatient Infusion Center [address] [phone] Ricci Carter MD [address] [place] [address] Keiko Hallman MD 80 [facility] [place] [address] Brittany Goins RN 80 [place] [address] Carcinoid tumor of ileum, unspecified whether malignant [...] Sign Reading Time Taken Comments Blood Pressure 153/67 03/21/2023 9:04 AM EST Pulse 80 03/21/2023 9:04 AM EST Temperature 35.9 ??C (96.6 ??F) 03/21/2023 9:04 AM ES T Respiratory Rate 16 03/21/2023 9:04 AM EST Oxygen Saturation 98% 03/21/2023 9:04 AM EST Inhaled Oxygen Concentration - - Weight 75.2 kg (165 lb 12.8 oz) 03/21/2023 9:04 AM EST Height 160 cm (5' 2.99) 03/21/2023 9:04 AM EST Body Mass Index 29.38 03/21/2023 9:04 AM EST documented in this encounter Plan of Treatment Upcoming Encounters Date Type Department Care Team (Late st Contact Info) Description 11/13/2023 7:45 AM EDT Office Visit [facility] Cancer [place] Medical Oncology at [address] [phone] Ricci Carter MD [address] [place] [address] 11/13/2023 8:30 AM EDT Infusion [facility] Cancer [place] at [facility] Outpatient Infusion Center [address] [phone] Ricci Carter MD [address] [place], [place] [phone] Keiko Hallman MD 80 [facility] [place] [address] 11/20/2023 11:00 AM EDT Appointment [facility] Radiology Shay Mammography [address] [place] [address] [phone] Ricci Carter MD [address] [place], [place] [phone] 11/20/2023 11:30 AM EDT Appointment [facility] Radiology Shay Mammography [address] [place] [address] [phone] Ricci Carter MD [address] [place], [place] [phone] 03/05/2024 11:00 AM EST Consult [facility] Cardiology [address] [place] [phone] Ricci Carter MD [address] [place], [place] [address] Jamil Ralph MD [address] [place] [facility] 811 [place], [place] [phone] 05/30/2024 9:00 AM EST Office Visit [facility] Department of Internal Medicine [address] [facility] [place] [phone] Consuelo Hobbs PA-C [address] [address] documented as of this encounter Visit Diagnoses Diagnosis Carcinoid tumor of ileum, unspecified whether malignant (HCC)- Primary documented in this encounter Administered Medications Inactive Administered Medications - up to 1 most recent administrations Medication Order MAR Action Action Date Dose Rate Site octreotide (SandoSTATIN LAR) IM injection 40 mg 40 mg, Intramuscular, Once, On Mon03/21/23 at 0930, For 1 dose, Administer IM intragluteal (avoid deltoid administration). For intraMUSCULAR use ONLY. Must be administered immediately after mixing. Given 03/21/2023 9:11 AM EST 40 mg Left Gluteal Upper Outer Quadrant documented in this encounter Care Teams Geography Teacher Relationship Specialty Start Date End Date Consuelo Hobbs PA-C [address] [address] PCP - General 05/01/19 Madi Sharp MD [address] [place] [address] Gastroenterology 10/02/19 documented as of this encounter
--- OUTSIDE RECORDS SUMMARY | 2023-10-29 17:44 | XMS_ITS | Encounter Summary ---
Author Organization [facility] Address [address] [place] [address] Care Team Providers Care Division Field Inspector Name Role Phone Consuelo Hobbs PA-C Primary Care Provider Madi Sharp MD Unavailable [phone] Reason for Visit * Reason Comments Medication Refill Encounter Details Date Type Department Care Team (Late Contact Info) Description 01/23/2023 Refill [facility] Department of Internal Medicine & Nephrology [place] 85 [facility] [address] [place] [phone] Consuelo Hobbs PA-C 1210 [facility] 109 [place], [place] [phone] Migraine with status migrainosus, not intractable, unspecified [...] Description 11/13/2023 7:45 AM EDT Office Visit [facility] Medical Oncology at [address] [phone] Ricci Carter MD 85 [place], [place] [address] 11/13/2023 8:30 AM EDT Infusion [facility] Cancer [place] at [facility] Outpatient Infusion Center [address] [phone] Ricci Carter MD [address] [place], [place] [phone] Keiko Hallman MD 80 [facility] [place] [address] 11/20/2023 11:00 AM EDT Appointment [facility] Radiology Shay Mammography [address] [place] [address] [phone] Ricci Carter MD [address] [place], [place] [id number] 11/20/2023 11:30 AM EDT Appointment [facility] Radiology Shay Mammography 35 [place] [phone] Ricci Carter MD [address] [place], [place] [address] 03/05/2024 11:00 AM EST Consult [facility] Cardiology [address] [place] [address] [phone] Ricci Carter MD [address] [place], [place] [phone] Jamil Ralph MD [address] [place] [address] 05/30/2024 9:00 AM EST Office Visit [facility] Department of Internal Medicine [facility] 1210 [facility] 109 [place] [address] Consuelo Hobbs PA-C 1210 [facility] 109 [place] [address] documented as of this encounter Visit Diagnoses Diagnosis Migraine with status migrainosus, not intractable, unspecified migraine type documented in this encounter Care Teams Division Field Inspector Relationship Specialty Start Date End Date Consuelo Hobbs PA-C [address] [place] [address] PCP - General 05/01/19 Madi Sharp MD [address] [address] Gastroenterology 10/02/19 documented as of this encounter
--- OUTSIDE RECORDS SUMMARY | 2023-10-29 17:44 | XMS_ITS | Encounter Summary ---
Author Organization [facility] Address [address] [place] [address] Care Team Providers Care Technical Maintenance Specialist Name Role Phone Consuelo Hobbs PA-C Primary Care Provider Madi Sharp MD Unavailable [phone] Encounter Details Date Type Department Care Team (Latest Contact Info) Description 02/21/2023 Travel Social History Tobacco Use Types Packs/Day [...] Description 11/13/2023 7:45 AM EDT Office Visit [facility] Medical Oncology at [address] [phone] Ricci Carter MD [address] [place] [address] 11/13/2023 8:30 AM EDT Infusion [facility] Cancer [place] at [facility] Outpatient Infusion [facility] [address] [place] [phone] Ricci Carter MD [address] [place], [place] [phone] Keiko Hallman MD 80 [facility] [place] [address] 11/20/2023 11:00 AM EDT Appointment [facility] Radiology Shay Mammography [address] [place] [address] [phone] Ricci Carter MD [address] [place], [place] [address]106 11/20/2023 11:30 AM EDT Appointment [facility] Radiology Shay Mammography 35 [place] [phone] Ricci Carter MD [address] [place], [place] [address]106 03/05/2024 11:00 AM EST Consult [facility] Cardiology [address] [place] [phone] Ricci Carter MD [address] [place], [place] [phone] Jamil Ralph MD [address] [facility] [address] [place], [place] [address] 05/30/2024 9:00 AM EST Office Visit [facility] Department of Internal Medicine [address] [place] [address] Cnosuelo Hobbs PA-C [address] [address] documented as of this encounter Visit Diagnoses Not on filedocumented in this encounter Care Teams Technical Maintenance Specialist Relationship Specialty Start Date End Date Consuelo Hobbs PA-C [address] [phone] PCP - General 05/01/19 Madi Sharp MD [address] [place] [address] Gastroenterology 10/02/19 documented as of this encounter
--- OUTSIDE RECORDS SUMMARY | 2023-10-29 17:44 | XMS_ITS | Encounter Summary ---
Author Organization [facility] Address 100 [place] [address] Care Team Providers Care Mushroom Press Operator Name Role Phone Consuelo Hobbs PA-C Primary Care Provider Madi Sharp MD Unavailable [phone] Encounter Details Date Type Department Care Team (Latest Contact Info) Description 04/25/2023 Travel Social History Tobacco Use Types Packs/Day [...] Description 11/13/2023 7:45 AM EDT Office Visit [facility] Medical Oncology at [address] [phone] Ricci Carter MD [address] [place] [address] 11/13/2023 8:30 AM EDT Infusion [facility] Cancer [place] at [facility] Outpatient Infusion Center [place] [address] [place] [phone] Ricci Carter MD [address] [place], [place] [address] Keiko Hallman MD 80 [facility] [place] [address] 11/20/2023 11:00 AM EDT Appointment [facility] Radiology Shay Mammography [address] [place] [address] [phone] Ricci Carter MD [address] [place], [place] [address] 11/20/2023 11:30 AM EDT Appointment [facility] Radiology Shay Mammography 35 [place] [phone] Ricci Carter MD [address] [place], [place] [address] 03/05/2024 11:00 AM EST Consult [facility] Cardiology [address] [place] [phone] Ricci Carter MD [address] [place], [place] [address] Jamil Ralph MD [address] [facility] [address] [place], [place] [phone] 05/30/2024 9:00 AM EST Office Visit [facility] Department of Internal Medicine [address] [place] [address] Consuelo Hobbs PA-C [address] [address] documented as of this encounter Visit Diagnoses Not on filedocumented in this encounter Care Teams Mushroom Press Operator Relationship Specialty Start Date End Date Consuelo Hobbs PA-C [address] [phone] PCP - General 05/01/19 Madi Sharp MD [address] [place] [address] Gastroenterology 10/02/19 documented as of this encounter
--- OUTSIDE RECORDS SUMMARY | 2023-10-29 17:44 | XMS_ITS | Encounter Summary ---
Author Organization [facility] Address 100 [place] [address] Care Team Providers Care Interventional Technologist Name Role Phone Consuelo Hobbs PA-C Primary Care Provider Madi Sharp MD Unavailable [phone] Encounter Details Date Type Department Care Team (Latest Contact Info) Description 06/27/2023 Travel Social History Tobacco Use Types Packs/Day [...] 7:45 AM EDT Office Visit [facility] Cancer [place] Medical Oncology at [address] [phone] Ricci Carter MD [address] [place] [address] 11/13/2023 8:30 AM EDT Infusion [facility] Cancer [place] at [facility] Outpatient Infusion Center [address] [phone] Ricci aCrter MD [address] [place], [place] [address] Keiko Hallman MD 80 [facility] [place] [address] 11/20/2023 11:00 AM EDT Appointment [facility] Radiology Shay Mammography [address] [place] [address] [phone] Ricci Carter MD [address] [place], [place] [address] 11/20/2023 11:30 AM EDT Appointment [facility] Radiology Shay Mammography 35 [place] [phone] Ricci Carter MD [address] [place], [place] [address] 03/05/2024 11:00 AM EST Consult [facility] Cardiology [address] [place] [phone] Ricci Carter MD [address] [place] [place], [place] [address] Jamil Ralph MD [address] [place] [facility] [address] [place], [place] [address] 05/30/2024 9:00 AM EST Office Visit [facility] Department of Internal Medicine [address] [place], [place] [phone] Consuelo Hobbs PA-C [address] [address] documented as of this encounter Visit Diagnoses Not on filedocumented in this encounter Care Teams Interventional Technologist Relationship Specialty Start Date End Date Consuelo Hobbs PA-C [address] [phone] PCP - General 05/01/19 Madi Sharp MD [address] [place] [address] Gastroenterology 10/02/19 documented as of this encounter
--- OUTSIDE RECORDS SUMMARY | 2023-10-29 17:44 | XMS_ITS | Encounter Summary ---
Author Organization [facility] Address [address] [place] [address] Care Team Providers Care Business [employer] Dean Name Role Phone Consuelo Hobbs PA-C Primary Care Provider Madi Sharp MD Unavailable [phone] Reason for Visit * Reason Comments Injections * Episode Based Medications (Routine) - Authorized Specialty Diagnoses / Procedures Referred By Contbalbir t Referred To Contact Diagnoses Carcinoid tumor of ileum, unspecified whether malignant (HCC) Keiko Hallman MD 80 [facility] [place] [address] Med Onc Ci [address] [address] Referral ID Status Reason Start Date Expiration Date V isits Requested Visits Authorized [id number] Authorized 04/29/2022 11/27/2023 5 2 Encounter Details Date Type Department Care Team (Late st Contact Info) Description 01/10/2023 8:45 AM EDT Infusion [facility] Cancer [place] at [facility] Outpatient Infusion Center [address] [phone] Ricci Carter MD [address] [place] [address] Keiko Hallman MD 80 [facility] [place] [address] Cony Garduno, RN 80 [place] [address] Carcinoid tumor of ileum, unspecified whether malignant [...] Sign Reading Time Taken Comments Blood Pressure 164/75 01/10/2023 8:54 AM EDT Pulse 92 01/10/2023 8:54 AM EDT Temperature 35.7 ??C (96.2 ??F) 01/10/2023 8:54 AM ED T Respiratory Rate 16 01/10/2023 8:54 AM EDT Oxygen Saturation 95% 01/10/2023 8:54 AM EDT Inhaled Oxygen Concentration - - Weight 72.8 kg (160 lb 9.6 oz) 01/10/2023 8:54 A M EDT Height - - Body Mass Index 28.46 11/10/2022 9:51 AM EDT documented in this encounter Plan of Treatment Upcoming Encounters Date Type Department Care Team (Late st Contact Info) Description 11/13/2023 7:45 AM EDT Office Visit [facility] [place] Medical Oncology at [address] [phone] Ricci Carter MD [address] [place] [address] 11/13/2023 8:30 AM EDT Infusion [facility] Cancer [place] at [facility] Outpatient Infusion Center [address] [phone] Ricci Carter MD [address] [place] [address] Keiko Hallman MD 80 [facility] [place] [address] 11/20/2023 11:00 AM EDT Appointment [facility] Radiology [facility] Mammography [address] [place] [phone] Ricci Carter MD [address] [place], [place] [id number] 11/20/2023 11:30 AM EDT Appointment [facility] Radiology [facility] M[facility] [address] [place] [phone] Ricci Carter MD [address] [place], [place] [address] 03/05/2024 11:00 AM EST Consult [facility] Cardiology [address] [place] [phone] Ricci Carter MD [address] [place], [place] [phone] Jamil Ralph MD [address] [facility] [address] [place], [place] [id number] 05/30/2024 9:00 AM EST Office Visit [facility] Department of Internal Medicine [address] [place] [address] Consuelo Hobbs PA-C [address] [address] documented as of this encounter Visit Diagnoses Diagnosis Carcinoid tumor of ileum, unspecified whether malignant (HCC)- Primary documented in this encounter Administered Medications Inactive Administered Medications - up to 1 most recent administrations Medication Order MAR Action Action Date Dose Rate Site octreotide (SandoSTATIN LAR) IM injection 40 mg 40 mg, Intramuscular, Once, On Mon01/10/23 at 0930, For 1 dose, Administer IM intragluteal (avoid deltoid administration). For intraMUSCULAR use ONLY. Must be administered immediately after mixing. Given 01/10/2023 8:57 AM EDT 40 mg Left Gluteal Upper Outer Quadrant documented in this encounter Care Teams Business [employer] Dean Relationship Specialty Start Date End Date Consuelo Hobbs PA-C [address] [place] [address] PCP - General 05/01/19 Madi Sharp MD [address] [place] [address] Gastroenterology 10/02/19 documented as of this encounter
--- OUTSIDE RECORDS SUMMARY | 2023-10-29 17:44 | XMS_ITS | Encounter Summary ---
Author Organization [facility] Address [address] [place] [address] Care Team Providers Care Charge Histotechnologist Name Role Phone Consuelo Hobbs PA-C Primary Care Provider Madi Sharp MD Unavailable [phone] Reason for Visit * Reason Comments Medication Refill Encounter Details Date Type Department Care Team (Late Contact Info) Description 05/19/2023 Refill [facility] Department of Internal Medicine & Nephrology [place] 85 [facility] [address] [place] [phone] Consuelo Hobbs PA-C [address] [facility] 109 [place], [place] [phone] Migraine with status migrainosus, not intractable, unspecified [...] 11/13/2023 7:45 AM EDT Office Visit [facility] Medical Oncology at [address] [phone] Ricci Carter MD [address] [place], [place] [id number] 11/13/2023 8:30 AM EDT Infusion [facility] Cancer [place] at [facility] Outpatient Infusion Center [address] [phone] Ricci Carter MD [address] [place], [place] [phone] Keiko Hallman MD 80 [facility] [place] [address] 11/20/2023 11:00 AM EDT Appointment [facility] Radiology Shay Mammography [address] [place] [phone] Ricci Carter MD [address] [place], [place] [id number] 11/20/2023 11:30 AM EDT Appointment [facility] Radiology Shay Mammography 35 [place] [phone] Ricci Carter MD [address] [place], [place] [id number] 03/05/2024 11:00 AM EST Consult [facility] Cardiology [address] [place] [phone] Ricci Carter MD [address] [place], [place] [phone] Jamil Ralph MD [address] [place] [address] 05/30/2024 9:00 AM EST Office Visit [facility] Department of Internal Medicine [facility] 1210 [facility] 109 [place] [address] Consuelo Hobbs PA-C 12[address] [facility] 109 [place] [address] documented as of this encounter Visit Diagnoses Diagnosis Migraine with status migrainosus, not intractable, unspecified migraine type documented in this encounter Care Teams Charge Histotechnologist Relationship Specialty Start Date End Date Consuelo Hobbs PA-C [address] [place] [address] PCP - General 05/01/19 Madi Sharp MD [address] [address] Gastroenterology 10/02/19 documented as of this encounter
--- OUTSIDE RECORDS SUMMARY | 2023-10-29 17:44 | XMS_ITS | Encounter Summary ---
Author Organization [facility] Address [address] [place] [address] Care Team Providers Care Lieutenant Fire Fighter Name Role Phone Consuelo Hobbs PA-C Primary Care Provider Madi Sharp MD Unavailable [phone] Encounter Details Date Type Department Care Team (Latest Contact Info) Description 06/20/2023 Travel Social History Tobacco Use Types Packs/Day [...] 7:45 AM EDT Office Visit [facility] Cancer [place] Medical Oncology at [address] [phone] Ricci Carter MD [address] [place] [address] 11/13/2023 8:30 AM EDT Infusion [facility] Cancer [place] at [facility] Outpatient Infusion Center [address] [phone] Ricci Carter MD [address] [place], [place] [phone] Keiko Hallman MD 80 [facility] [place] [address] 11/20/2023 11:00 AM EDT Appointment [facility] Radiology Shay Mammography [address] [place] [phone] Ricci Carter MD [address] [place], [place] [phone] 11/20/2023 11:30 AM EDT Appointment [facility] Radiology Shay Mammography 35 [place] [phone] Ricci Carter MD [address] [place], [place] [address] 03/05/2024 11:00 AM EST Consult [facility] Medical Group Cardiology [address] [place] [phone] Ricci Carter MD [address] [place], [place] [phone] Jamil Ralph MD [address] [place] [facility] [address] [place], [place] [phone] 05/30/2024 9:00 AM EST Office Visit [facility] Department of Internal Medicine [address] [place], [place] [phone] Consuelo Hobbs PA-C [address] [address] documented as of this encounter Visit Diagnoses Not on filedocumented in this encounter Care Teams Lieutenant Fire Fighter Relationship Specialty Start Date End Date Consuelo Hobbs PA-C [address] [phone] PCP - General 05/01/19 Madi Sharp MD [address] [place] [address] Gastroenterology 10/02/19 documented as of this encounter
--- OUTSIDE RECORDS SUMMARY | 2023-10-29 17:44 | XMS_ITS | Encounter Summary ---
Author Organization [facility] Address [address] [place] [address] Care Team Providers Care Bed Setter Name Role Phone Consuelo Hobbs PA-C Primary Care Provider Madi Sharp MD Unavailable [phone] Encounter Details Date Type Department Care Team (Late Contact Info) Description 04/20/2023 Scanned Document [facility] Medical Oncology at [address] [phone] Provider, Dodie, [address] [place] [address] Social History Tobacco Use Types Packs/Day Years [...] Description 11/13/2023 7:45 AM EDT Office Visit [facility] Medical Oncology at [address] [phone] Ricci Carter MD [address] [place], [place] [phone] 11/13/2023 8:30 AM EDT Infusion [facility] Cancer [place] at [facility] Outpatient Infusion Center [address] [phone] Ricci Carter MD [address] [place], [place] [address] Keiko Hallman MD 80 [facility] [place] [address] 11/20/2023 11:00 AM EDT Appointment [facility] Radiology Shay Mammography [address] [place] [phone] Ricci Carter MD [address] [place], [place] [phone] 11/20/2023 11:30 AM EDT Appointment [facility] Radiology Shay Mammography [address] [place] [address] [phone] Ricci Carter MD [address] [place], [place] [address] 03/05/2024 11:00 AM EST Consult [facility] Medical Group Cardiology [address] [place] [phone] Ricci Carter MD [address] [place], [place] [phone] Jamil Ralph MD [address] [place] [facility] [address] [place], [place] [address] 05/30/2024 9:00 AM EST Office Visit [facility] Department of Internal Medicine [facility] [address] [phone] Consuelo Hobbs PA-C [address] [phone] documented as of this encounter Visit Diagnoses Not on filedocumented in this encounter Care Teams Bed Setter Relationship Specialty Start Date End Date Consuelo Hobbs PA-C [address] [place] [address] PCP - General 05/01/19 Madi Sharp MD [address] [place] [address] Gastroenterology 10/02/19 documented as of this encounter
--- OUTSIDE RECORDS SUMMARY | 2023-10-29 17:44 | XMS_ITS | Encounter Summary ---
Author Organization [facility] Address [address] [place] [address] Care Team Providers Care Headliner Installer Name Role Phone Consuelo Hobbs PA-C Primary Care Provider Madi Sharp MD Unavailable [phone] Reason for Visit * Episode Based Medications (Routine) - Authorized Specialty Diagnoses / Procedures Referred By Contac t Referred To Contact Diagnoses Carcinoid tumor of ileum, unspecified whether malignant (HCC) Keiko Hallman MD 80 [facility] [place] [address] [address] Onc Ci [address] [address] Referral ID Status Reason Start Date Expiration Date V isits Requested Visits Authorized [id number] Authorized 04/29/2022 11/27/2023 5 2 Encounter Details Date Type Department Care Team (Late st Contact Info) Description 06/06/2023 8:30 AM EST Infusion [facility] Cancer [place] at [facility] Outpatient Infusion Center [address] [phone] Ricci Carter MD [address] [place] [address] Keiko Hallman MD 80 [facility] [place] [address] Sienna Alaniz RN 80 [place] [address] Carcinoid tumor of ileum, unspecified whether malignant [...] Sign Reading Time Taken Comments Blood Pressure 118/58 06/06/2023 8:16 AM EST Pulse 81 06/06/2023 8:16 AM EST Temperature 35.7 ??C (96.2 ??F) 06/06/2023 8:16 AM ES T Respiratory Rate 16 06/06/2023 8:16 AM EST Oxygen Saturation 100% 06/06/2023 8:16 AM EST Inhaled Oxygen Concentration - - Weight 75.8 kg (167 lb) 06/06/2023 8:16 AM EST Height 160 cm (5' 2.99) 06/06/2023 8:16 AM EST Body Mass Index 29.59 06/06/2023 8:16 AM EST documented in this encounter Plan of Treatment Upcoming Encounters Date Type Department Care Team (Late st Contact Info) Description 11/13/2023 7:45 AM EDT Office Visit [facility] Cancer [place] Medical Oncology at [address] [phone] Ricci Carter MD [address] [place] [address] 11/13/2023 8:30 AM EDT Infusion [facility] Cancer [place] at [facility] Outpatient Infusion Center [address] [phone] Ricci Carter MD [address] [place], [place] [phone] Keiko Hallman MD 80 [facility] [place] [address] 11/20/2023 11:00 AM EDT Appointment [facility] Radiology Shay Mammography 35 [place] [phone] Ricci Carter MD [address] [place], [place] [phone] 11/20/2023 11:30 AM EDT Appointment [facility] Radiology Shay Mammography 35 [place] [phone] Ricci Carter MD [address] [place], [place] [phone] 03/05/2024 11:00 AM EST Consult [facility] Cardiology [address] [place] [phone] Ricci Carter MD [address] [place] [place], [place] [phone] Jamil Ralph MD [address] [place] [facility] [address] [place], [place] [phone] 05/30/2024 9:00 AM EST Office Visit [facility] Department of Internal Medicine [address] [facility] [phone] Consuelo Hobbs PA-C [address] [phone] documented as of this encounter Visit Diagnoses Diagnosis Carcinoid tumor of ileum, unspecified whether malignant (HCC)- Primary documented in this encounter Administered Medications Inactive Administered Medications - up to 1 most recent administrations Medication Order MAR Action Action Date Dose Rate Site octreotide (SandoSTATIN LAR) IM injection 40 mg 40 mg, Intramuscular, Once, On Mon06/06/23 at 0900, For 1 dose, Administer IM intragluteal (avoid deltoid administration). For intraMUSCULAR use ONLY. Must be administered immediately after mixing. Given 06/06/2023 8:37 AM EST 40 mg Left Gluteal Upper Outer Quadrant documented in this encounter Care Teams Headliner Installer Relationship Specialty Start Date End Date Consuelo Hobbs PA-C [address] [phone] PCP - General 05/01/19 Madi Sharp MD [address] [place] [address] Gastroenterology 10/02/19 documented as of this encounter
--- OUTSIDE RECORDS SUMMARY | 2023-10-29 17:44 | XMS_ITS | Encounter Summary ---
Author Organization [facility] Address [address] [place] [address] Care Team Providers Care Aquatics Instructor Name Role Phone Consuelo Hobbs PA-C Primary Care Provider Madi Sharp MD Unavailable [phone] Reason for Visit * Episode Based Medications (Routine) - Authorized Specialty Diagnoses / Procedures Referred By Contac t Referred To Contact Diagnoses Carcinoid tumor of ileum, unspecified whether malignant (HCC) Keiko Hallman MD 80 [facility] [place] [address] Med Onc Ci [address] [address] Referral ID Status Reason Start Date Expiration Date V isits Requested Visits Authorized [id number] Authorized 04/29/2022 11/27/2023 5 2 Encounter Details Date Type Department Care Team (Late st Contact Info) Description 04/25/2023 8:30 AM EST Infusion [facility] Cancer [place] at [facility] Outpatient Infusion Center [address] [phone] Ricci Carter MD [address] [place] [address] Keiko Hallman MD 80 [facility] [place] [address] Shital Wallace RN 80 [place] [address] Carcinoid tumor of ileum, unspecified whether malignant [...] Sign Reading Time Taken Comments Blood Pressure 137/76 04/25/2023 8:54 AM EST Pulse 89 04/25/2023 8:54 AM EST Temperature 36.4 ??C (97.5 ??F) 04/25/2023 8:54 AM ES T Respiratory Rate 16 04/25/2023 8:54 AM EST Oxygen Saturation 98% 04/25/2023 8:54 AM EST Inhaled Oxygen Concentration - - Weight 76.7 kg (169 lb 3.2 oz) 04/25/2023 8:54 A M EST Height 160 cm (5' 2.99) 04/25/2023 8:54 AM EST Body Mass Index 29.98 04/25/2023 8:54 AM EST documented in this encounter Plan of Treatment Upcoming Encounters Date Type Department Care Team (Late st Contact Info) Description 11/13/2023 7:45 AM EDT Office Visit [facility] Cancer [place] Medical Oncology at [address] [phone] Ricci Carter MD [address] [place] [address] 11/13/2023 8:30 AM EDT Infusion [facility] Cancer [place] at [facility] Outpatient Infusion Center [address] [phone] Ricci Carter MD [address] [place] [address] Keiko Hallman MD 80 [facility] [place] [address] 11/20/2023 11:00 AM EDT Appointment [facility] Radiology Shay Mammography [address] [place] [phone] Ricci Carter MD [address] [place], [place] [phone] 11/20/2023 11:30 AM EDT Appointment [facility] Radiology Shay Mammography 35 [place] [phone] Ricci Carter MD [address] [place], [place] [id number] 03/05/2024 11:00 AM EST Consult [facility] Group Cardiology [address] [place] [phone] Ricci Carter MD [address] [place], [place] [phone] Jamil Ralph MD [address] [place] [facility] [address] [place], [place] [phone] 05/30/2024 9:00 AM EST Office Visit [facility] Department of Internal Medicine [address] [place] [address] Consuelo Hobbs PA-C [address] [address] documented as of this encounter Visit Diagnoses Diagnosis Carcinoid tumor of ileum, unspecified whether malignant (HCC)- Primary documented in this encounter Administered Medications Inactive Administered Medications - up to 1 most recent administrations Medication Order MAR Action Action Date Dose Rate Site octreotide (SandoSTATIN LAR) IM injection 40 mg 40 mg, Intramuscular, Once, On Mon04/25/23 at 0930, For 1 dose, Administer IM intragluteal (avoid deltoid administration). For intraMUSCULAR use ONLY. Must be administered immediately after mixing. Given 04/25/2023 8:56 AM EST 40 mg Left Gluteal Upper Outer Quadrant documented in this encounter Care Teams Aquatics Instructor Relationship Specialty Start Date End Date Consuelo Hobbs PA-C [address] [address] PCP - General 05/01/19 Madi Sharp MD [address] [place] [address] Gastroenterology 10/02/19 documented as of this encounter
--- OUTSIDE RECORDS SUMMARY | 2023-10-29 17:44 | XMS_ITS | Encounter Summary ---
Author Organization [facility] Address [address] [place] [address] Care Team Providers Care Pbx Mechanic Name Role Phone Consuelo Hobbs PA-C Primary Care Provider Madi Sharp MD Unavailable [phone] Encounter Details Date Type Department Care Team (Late st Contact Info) Description 06/28/2023 Orders Only [facility] Medical Oncology at [address] [phone] Yesica Blanco, MAYA [address] [place] [address] Carcinoid tumor of ileum (HCC) Social History [...] Description 11/13/2023 7:45 AM EDT Office Visit [facility] Medical Oncology at [address] [phone] Ricci Carter MD [address] [place], [place] [phone] 11/13/2023 8:30 AM EDT Infusion [facility] Cancer [place] at [facility] Outpatient Infusion Center [address] [phone] Ricci Carter MD [address] [place], [place] [phone] Keiko Hallman MD [address] [facility] [place] [address] 11/20/2023 11:00 AM EDT Appointment [facility] Radiology Shay Mammography [address] [place] [address] [phone] Ricci Carter MD [address] [place], [place] [phone] 11/20/2023 11:30 AM EDT Appointment [facility] Radiology Shay Mammography [address] [place] [phone] Ricci Carter MD [address] [place], [place] [phone] 03/05/2024 11:00 AM EST Consult [facility] Cardiology [address] [place] [address] Ricci Carter MD [address] [place], [place] [phone] Jamil Ralph MD [address] [place] [address] 05/30/2024 9:00 AM EST Office Visit [facility] Department of Internal Medicine [facility] 1210 [facility] [address] [place] [address] Consuelo Hobbs PA-C [address] [phone] documented as of this encounter Visit Diagnoses Diagnosis Carcinoid tumor of ileum (HCC) documented in this encounter Care Teams Pbx Mechanic Relationship Specialty Start Date End Date Consuelo Hobbs PA-C [address] [place] [phone] PCP - General 05/01/19 Madi Sharp MD [address] [address] Gastroenterology 10/02/19 documented as of this encounter
--- OUTSIDE RECORDS SUMMARY | 2023-10-29 17:44 | XMS_ITS | Encounter Summary ---
Author Organization [facility] Address [address] [place] [address] Care Team Providers Care Refinish Technician Name Role Phone Consuelo Hobbs PA-C Primary Care Provider Madi Sharp MD Unavailable [phone] Reason for Referral * Pulmonary (Routine) - Pending Review Specialty Diagnoses / Procedures Referred By Vineet campbell Referred To Contact Diagnoses Snoring Procedures General sleep study Consuelo Hobbs PA-C [address] [place] [address] Referral ID Status Reason Start Date Expiration Date V isits Requested Visits Authorized [id number] Pending Review 05/30/2023 05/30/2024 1 1 Reason for Visit * Reason Comments Annual Exam Encounter Details Date Type Department Care Team (Late st Contact Info) Description 05/30/2023 9:00 AM EST Office Visit [facility] Department of Internal Medicine [facility] [place] [address] [facility] [address] [place] [address] Consuelo Hobbs PA-C [address] [facility] [address] [place] [address] Routine physical examination (Primary Dx); Weight gain; Cigarette nicotine dependence in remission; Anemia, unspecified type; Malignant carcinoid tumor of ileum (HCC); History of gastric ulcer; Vitamin D deficiency; Elevated LFTs; Snoring; Encounter for hepatitis C screening test for low risk patient; Screening for HIV without presence of risk factors; Hypertension, unspecified type Social History Tobacco Use Types Packs/Day [...] Sign Reading Time Taken Comments Blood Pressure 144/90 05/30/2023 8:48 AM EST Pulse 96 05/30/2023 8:48 AM EST Temperature - - Respiratory Rate - - Oxygen Saturation 99% 05/30/2023 8:48 AM EST Inhaled Oxygen Concentration - - Weight 74.4 kg (164 lb) 05/30/2023 8:48 AM EST Height 160 cm (5' 3) 05/30/2023 8:48 AM EST Body Mass Index 29.05 05/30/2023 8:48 AM EST documented in this encounter Patient Instructions * Patient Instructions* Consuelo Hobbs PA-C - 05/28/2023 11:57 AM EST Omron is a good brand of blood pressure cuff GENERAL HEALTH RECOMMENDATIONS DIET and EXERCISE Your goal for cardiovascular exercise should be to get your heart rate up for a steady 20-30 minutes, at least 5 times per week, as tolerated. Resistance exercises with light dumb bells or body weight exercises are also recommended for bone strength. A low fat(especially low trans fat and low saturated fats), high in fiber diet with 5 servings of fruit or vegetables is recommended. Calcium intake, either through diet should be about 1000-1200mg/day. Some individuals may need more. Vitamin D 400-800 units daily is also recommended. Many individuals require more supplementation. HOME SAFETY Always wear seat belts in the car. Have working smoke detectors and carbon monoxide detectors in the home. Guns in the home should be locked in a safe and unloaded when not in use. Wear sunscreen in the summer or when exposed to the sun for prolonged periods IMMUNIZATIONS: Flu shot once a year, in the Fall RSV shot for age 60+ in the Fall Tetanus shot every 10 years Shingles vaccination two shots(2-6months apart) after 50years old (if you have Medicare you must get this at the pharmacy) Pneumonia vaccination at 65years. Some individuals should get this prior to age 65years old. COVID19: per current recommendations ROUTINE TESTING Colonoscopy, generally starting at 45 years old Some individuals should be screened earlier. Females Annual gynecologic evaluation, with pap smear timing per the aoc director intelligence officer recommendation Annual MAMMOGRAM at 40 years or older. Some individuals should be screened earlier Monthly breast exams on yourself Bone density testing starts at 65 years old and completed every 2-3 years after. Some individuals should be screened earlier Males Monthly testicular exams on yourself. Let your provider know if you notice any new lumps or swelling. ROUTINE VISITS Dental cleaning/visits every 6months Dilated eye exam at least every 2years. Many individuals should be seen more frequently. A complete physical exam with your Primary Care Provider is suggested annually. documented in this encounter Progress Notes * Consuelo Hobbs PA-C - 05/30/2023 9:00 AM EST Images from the original note were not included. [address] [place] [address] [place] [address] Date: 05/30/2023 Patient Name: Rody Sotelo Date of : 1970 Patient Care Team Patient Care Team: Consuelo Hobbs PA-C as PCP - General Madi Sharp MD (Gastroenterology) Reason for Visit Chief complaint: CPE HPI Pt presents for an annual preventative exam. Pt's last routine preventative exam was: 05/26/2022 Pt's med list and allergies were reviewed and reconciled. Pt's problem list will be reconciled- see discussion below. Recently started snoring for past 6months Has gained some weight More tired during the day Alcohol: 4-6 beers/wk TOB: current: none since the past 1year now last month ILLICT DRUG USE: none Shx -changes in past year or since last CPE?: FHx- changes in past year or since last CPE?: ?? 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 Past Medical History Past Medical History: Diagnosis Date ??? Abdominal pain 04/13/2020 ??? Abdominal wall pain in right flank 08/19/2015 ??? Cancer (HCC) ??? Carcinoid tumor of gastrointestinal tract (HCC) ??? IBS (irritable bowel syndrome) ??? Migraine 11/25/2019 ??? Migraines ??? PCOS (polycystic ovarian syndrome) 11/25/2019 ??? PVC (premature ventricular contraction) 11/25/2019 Past Surgical History Past Surgical History: Procedure Laterality Date ??? COLONOSCOPY N/A 11/25/2022 Preliminary Information: Procedure: COLONOSCOPY; Surgeon: Madi Sharp MD; Location: [facility]; Service: Gastroenterology; Laterality: N/A; ??? ENDOSCOPY ??? ENDOSCOPY UPPER N/A 04/22/2021 Preliminary Information: Procedure: ENDOSCOPY UPPER; Surgeon: Madi Sharp MD; Location: [facility]; Service: Gastroenterology; Laterality: N/A; ??? HEMICOLECTOMY Right ??? TONSILECTOMY, ADENOIDECTOMY, BILATERAL MYRINGOTOMY AND TUBES Family History Family History Problem Relation Age of Onset ??? Heart disease Father ??? Hypertension Father ??? Alcohol abuse Father ??? Mental illness Father ??? Heart attack Father ??? Hypertension Mother ??? Irritable bowel syndrome Mother ??? Mental illness Mother ??? Hypertension Brother ??? Mental illness Maternal Aunt ??? Tuberculosis Maternal Grandfather Social History Social History Tobacco Use ??? Smoking status: Former Packs/day: 0.25 Years: 22.00 Additional pack years: 0.00 Total pack years: 5.50 Types: Cigarettes Quit date: 05/17/2021 Years since quittin.0 ??? Smokeless tobacco: Never Vaping Use ??? Vaping Use: Never used Substance Use Topics ??? Alcohol use: Yes Comment: 6-10 drinks a week ??? Drug use: Yes Types: Marijuana Allergies Allergies Allergen Reactions ??? Levaquin [Levofloxacin] Myalgia/Myositis/Arthralgia/Arthritis ??? Cefaclor GI Intolerance/Nausea/Vomiting ??? Erythromycin GI Intolerance/Nausea/Vomiting Medications Current Outpatient Medications Medication Instructions ??? busPIRone (BUSPAR) 10 MG tablet 1 tablet, Oral, Nightly ??? calcium carbonate (OS-ANGELICA) 600 mg, Oral, Daily with breakfast ??? Cannabis (MARIJUANA) Misc Medical Prescription Strength As needed ??? colestipol (COLESTID) 1 g tablet TAKE 2 TABLETS(2 GRAMS) BY MOUTH TWICE DAILY WITH FULL GLASS OF WATER ??? ergotamine-caffeine (CAFERGOT) 1-100 MG per tablet TAKE 1 TABLET BY MOUTH TWICE DAILY NEEDED ??? famotidine (PEPCID) 40 mg, Oral, Daily ??? Ferrous Bisglycinate Chelate 28 mg, Oral, Daily ??? granisetron (KYTRIL) 2 mg, Oral, Daily ??? loperamide (IMODIUM A-D) 2 mg, Oral, 4 times daily PRN ??? Multiple Vitamins-Minerals (Multi Complete) Cap 1 capsule, Oral, See admin instructions ??? octreotide (SANDOSTATIN) 100 mcg, Subcutaneous, Every 8 hours PRN ??? pancrelipase, Ltv-Wxut-Cvhh, (Creon) [address]-[address]329 units Cap DR Particles capsule 36,000 units of lipase, Oral, 3 times daily with meals, Dose is in units of lipase. ??? rizatriptan (MAXALT-PALLIATIVE NURSE) 10 MG disintegrating tablet DISSOLVE 1 TABLET ON THE TONGUE EVERY DAY NEEDED ??? valsartan (DIOVAN) 80 mg, Oral, Daily ??? vitamin D3 50,000 Units, Oral, Weekly ROS Review of Systems Vitals Vitals: 05/30/23 0848 BP: (!) 144/90 Pulse: 96 SpO2: 99% BP Readings from Last 3 Encounters: 05/30/23 (!) 144/90 04/25/23 137/76 03/21/23 (!) 153/67 Wt Readings from Last 3 Encounters: 05/30/23 164 lb (74.4 kg) 04/25/23 169 lb 3.2 oz (76.7 kg) 03/21/23 165 lb 12.8 oz (75.2 kg) BMI: Estimated body mass index is 29.05 kg/m?? as calculated from the following: Height as of this encounter: 5' 3 (1.6 m). Weight as of this encounter: 164 lb (74.4 kg). BSA: Estimated body surface area is 1.82 meters squared as calculated from the following: Height as of this encounter: 5' 3 (1.6 m). Weight as of this encounter: 164 lb (74.4 kg). Physical Exam Physical Exam Constitutional: General: She is not in acute distress. Appearance: She is not ill-appearing. HENT: Head: Normocephalic and atraumatic. Right Ear: Tympanic membrane, ear canal and external ear normal. Left Ear: Tympanic membrane, ear canal and external ear normal. Nose: Nose normal. Mouth/Throat: Mouth: Mucous membranes are moist. Eyes: Extraocular Movements: Extraocular movements intact. Conjunctiva/sclera: Conjunctivae normal. Pupils: Pupils are equal, round, and reactive to light. Cardiovascular: Rate and Rhythm: Normal rate and regular rhythm. Heart sounds: Normal heart sounds. No murmur heard. No friction rub. Comments: No calf tenderness, induration, asymmetry or edema bilaterally. Pulmonary: Effort: No respiratory distress. Breath sounds: No wheezing, rhonchi or rales. Abdominal: General: Bowel sounds are normal. There is no distension. Palpations: Abdomen is soft. There is no mass. Tenderness: There is no abdominal tenderness. There is no right CVA tenderness or left CVA tenderness. Musculoskeletal: Right lower leg: No edema. Left lower leg: No edema. Lymphadenopathy: Cervical: No cervical adenopathy. Right cervical: No posterior cervical adenopathy. Left cervical: No posterior cervical adenopathy. Lower Body: No right inguinal adenopathy. No left inguinal adenopathy. Skin: General: Skin is warm. Coloration: Skin is not pale. Neurological: Mental Status: She is alert and oriented to person, place, and time. Motor: No weakness. Psychiatric: Behavior: Behavior normal. Results No results found for this or any previous visit (from the past 168 hour(s)). ECG No results found for this or any previous visit (from the past 8760 hour(s)). Screenings Assessment 1. Routine physical examination 2. Weight gain 3. Cigarette nicotine dependence in remission 4. Anemia, unspecified type 5. Malignant carcinoid tumor of ileum (HCC) 6. History of gastric ulcer 7. Vitamin D deficiency 8. Elevated LFTs 9. Snoring 10. Encounter for hepatitis C screening test for low risk patient 11. Screening for HIV without presence of risk factors 12. Hypertension, unspecified type Plan/ Orders Orders Placed This Encounter Procedures ??? LIPID PANEL Order Specific Question: Release to Patient Answer: Immediate [1] ??? TSH REFLEX FREE T4 Order Specific Question: Release to Patient Answer: Immediate [1] ??? Urinalysis with Microscopic Order Specific Question: Release to Patient Answer: Immediate [1] ??? HEPATITIS C VIRUS (HCV) ANTIBODY Order Specific Question: Release to Patient Answer: Immediate [1] ??? HIV 1/2 Ag/Ab CMIA Reflex to Confirmation Order Specific Question: Oral consent has been obtained by either the subject of the test or the person authorized to consent to health care for the individual. Answer: Yes Order Specific Question: Release to Patient Answer: Immediate [1] ??? General sleep study Order Specific Question: Patient History Answer: None Order Specific Question: Is patient weight over 300 lbs? Answer: No Order Specific Question: Sleep Related Complaints: Answer: Daytime fatigue Order Specific Question: Sleep Related Complaints: Answer: Snoring Order Specific Question: Special Needs: Answer: None Order Specific Question: Study to be done: Answer: Home Sleep Apnea Testing (HSAT) (89363) Comments: specialist recommendation please Order Specific Question: Suspected Disorder: Answer: Sleep Apnea, Unspecified (G47.30) Discussion/ Summary GENERAL HEALTH MAINTENANCE RECOMMENDATIONS DISCUSSED: Advised a low fat, high fiber diet with 5 servings of fruits or vegetables/day. Encouraged low saturated fat, low trans fat and low simple carbohydrate. Whole grain foods and Plant oils advised. Encourage light aerobic exercise 5X weekly for 20-30 minutes each time. Resistance exercises were also recommended. HOME SAFETY: Advised to always wear seat belts and ensure working smoke/carbon monoxide detectors in the home Advised sunscreen during prolonged sun exposure. Discussed firearm safety ROUTINE VISITS ADVISED: Dentist every 6mos Dilated Eye exam at least every 2 years CPE yearly FEMALE: CERVICAL CANCER SCREEN: per HEALTHCARE RECEPTIONIST, Dr. Niki Beck MAMMOGRAMS: normal 07/27/2022, repeat in 1yr due 07/2023 Recommended monthly self-breast exams BMD(age>65, no end age) Calcium intake of 1200 mg daily through diet and resistance exercises recommended IMMUNIZATIONS ADVISED: influenza yearly in the fall covid19- RSV- at age 60 or older in the fall at that pharmacy tdap once and td every 10yrs- repeat 2026 shingles at 50yo- complete in the past year PNA at 65: 1 dose PCV15 followed by PPSV23 OR 1 dose PCV20 Immunization History Administered Date(s) Administered ??? Covid-19 mRNA Primary Series Vaccine - Moderna 0.5 mL Full Dose 07/02/2020, 07/29/2020, 11/27/2020 ??? Influenza Inactivated/Split Preservative Free IM 02/06/2020, 03/09/2021, 05/10/2023 ??? Influenza, Quadrivalent (FLUARIX, AFLURIA, FLULAVAL, FLUZONE) Preservative Free IM 01/03/2018, 02/22/2019, 01/14/2023 ??? Influenza, Unspecified 03/14/2016 ??? Td 04/03/2016 ??? Zoster Vaccine Recombinant (Shingrix) 06/07/2022, 09/13/2022 COLON CANCER SCREENING Colonoscopy: Dr. Sharp, last 2018. was told by oncologist needs it once a year, is up to date CARE TEAM PROVIDERS HEALTHCARE RECEPTIONIST: Dr. Niki Beck HEME/ONC: Dr. Carter- carcinoid tumor bowel GI: Dr. Sharp, [facility]- medical marijuana RHEUM- arthralgias +fhx psoriatic arthritis: Dr. Lima. no longer seeing CARD: [facility] just started 2021- for palpitations (just once check up bc carcinoid can affect the heart) HEALTH MAINTENANCE labs were ordered including: UA, TSH and lipid battery 03/2023 cbc, cmp were stable Hep C screen(age 18-79): ordered HIV screen(age 15-65): ordered WEIGHT GAIN Since quitting smoking. exercise limited by heel pain. Advised on diet and exercise. may see ortho for the heel pain NICOTINE DEPENDENCE in REMISSION: none in the past year RODY is an active smoker: 1-3cig/day x 27yrs? COUNSELING FOR TOBACCO CESSATION was provided for <=3mins. LUNG CANCER SCREENING (30pack year hx and quit within past 15yrs or still smoking, Aged 55-80) Mild ANEMIA 03/15/2022 H&H stable 11.2/33.9 with low iron, now on iron supplements Follows with HEME/ONCO for carcinoid ca CARCINOID TUMOR of ILEUM- S/p sb resection and right hemicolectomy 07/11/2013. 12/16/2019 scope: normal. Managed on: Sandostatin LAR q3wks. HEME/ONCO: Dr. Carter/[address] Hx of GASTRIC ULCER 05/07/20 and recent dx of GASTRIC METAPLASIA EGD: Dr. Sharp 04/22/2021, repeat in 3yrs. rec'd to: quit smoking, reduced drinking and stay on PPI. Continue: on Famotidine 40mg daily and Omeprazole 40mg daily VIT D Def In epic 03/15/2022=25, on supplements from Dr. hoff HTN BP has not been well controlled Maybe due to weight gain and decreased activity due to achilles pain Discussed limiting salt, alcohol and finding other mods to get cardio exercise Will start Valsartan 80mg daily today Advised she check BP at home ideally BID x 2weeks Will recheck in 2wks at [facility] Mild ELEVATED LFT's Noted in epic 03/15/2022 Ast 37, alt 38 Dr. Cartre ordered these, aware. Hx of LEFT ACHILLES PAIN- since Levaquin tx. recent flare after hiking more. she may see ortho at this point Now have pain in both heels and inflammed toes Didn't like the corporate ethics officer saw , finding someone new at [facility] [place] Advised to RTC for a preventative annual exam in 1year with Consuelo Hobbs PA-C Return earlier as needed Signed up for mindful drinking program [place] Consuelo Hobbs PA-C Electronically signed by Consuelo oHbbs PA-C 05/30/2023 documented in this encounter Plan of Treatment Upcoming Encounters Date Type Department Care Team (Late st Contact Info) Description 11/13/2023 7:45 AM EDT Office Visit [facility] at [address] [phone] Ricci Carter MD [address] [place] [address] 11/13/2023 8:30 AM EDT Infusion [facility] [place] [facility] Infusion Center [address] [phone] Ricci Carter MD [address] [place] [address] Keiko Hallman MD [address] [facility] [place] [address] 11/20/2023 11:00 AM EDT Appointment [facility] Radiology [facility] [address] [place] [phone] Ricci Carter MD [address] [place] [address] 11/20/2023 11:30 AM EDT Appointment [facility] Radiology [facility] [address] [place] [phone] Ricci Carter MD [address] [place], [place] [phone] 03/05/2024 11:00 AM EST Consult [facility] Cardiology [address] [place] [phone] Ricci Carter MD [address] [place], [place] [phone] Jamil Ralph MD [address] [facility] [address] [place], [place] [phone] 05/30/2024 9:00 AM EST Office Visit [facility] Department of Internal Medicine [facility] [address] [facility] [address] [place] [phone] Consuelo Hobbs PA-C [address] [facility] [address] [place], [place] [phone] Scheduled Orders Name Type Priority Associated Diagnoses Orde r Schedule LIPID PANEL Lab Routine Routine physical examination Ordered: 05/30/2023 TSH REFLEX FREE T4 Lab Routine Routine physical examination Ordered: 05/30/2023 Urinalysis with Microscopic Lab Routine Routine physical examination Ordered: 05/30/2023 HEPATITIS C VIRUS (HCV) ANTIBODY Lab Routine Encounter for hepatitis C screening test for low risk patient Ordered: 05/30/2023 General sleep study Sleep Center Routine Snoring Ordered: 05/30/2023 HIV 1/2 Ag/Ab CMIA Reflex to Confirmation Lab Routine Screening for HIV without presence of risk factors Ordered: 05/30/2023 documented as of this encounter Visit Diagnoses Diagnosis Routine physical examination- Primary Routine general medical examination at a health care facility Weight gain Other symptoms concerning nutrition, metabolism, and development Cigarette nicotine dependence in remission Anemia, unspecified type Malignant carcinoid tumor of ileum (HCC) Malignant carcinoid tumor of the ileum History of gastric ulcer Vitamin D deficiency Elevated LFTs Other abnormal blood chemistry Snoring Other dyspnea and respiratory abnormality Encounter for hepatitis C screening test for low risk patient Screening for HIV without presence of risk factors Hypertension, unspecified type documented in this encounter Care Teams Refinish Technician Relationship Specialty Start Date End Date Consuelo Hobbs PA-C [address] [address] PCP - General 05/01/19 Madi Sharp MD [address] [address] Gastroenterology 10/02/19 documented as of this encounter
--- OUTSIDE RECORDS SUMMARY | 2023-10-29 17:44 | XMS_ITS | Encounter Summary ---
Author Organization [facility] Address [address] [place] [address] Care Team Providers Care Manager Public Name Role Phone Consuelo Hobbs PA-C Primary Care Provider Madi Sharp MD Unavailable [phone] Reason for Referral * Rehabilitation (Routine) - Authorized Specialty Diagnoses / Procedures Referred By Vineet campbell Referred To Contact Diagnoses Achilles tendinitis, unspecified laterality Foot pain, bilateral Consuelo Hobbs PA-C [address] [address] Referral ID Status Reason Start Date Expiration Date Visits Requested Visits Authorized [id number] Authorized Support Services 07/04/2023 07/04/2024 1 1 Question Answer Is this referral for an initial evaluation or additional visits? Initial evaulation Is this related to a Neurological Condition? No Encounter Details Date Type Department Care Team (Late st Contact Info) Description 07/04/2023 Orders Only [facility] Department of Internal Medicine [facility] [place] [address] [facility] [address] [place], [place] [phone] Consuelo Hobbs PA-C [address] [phone] Achilles tendinitis, unspecified laterality (Primary Dx); Foot pain, bilateral Social History Tobacco Use Types Packs/Day Years [...] Description 11/13/2023 7:45 AM EDT Office Visit [facility]cology at [address] [phone] Ricci Carter MD [address] [place] [address] 11/13/2023 8:30 AM EDT Infusion [facility] Out[facility] Infusion Center [address] [phone] Ricci Carter MD [address] [place] [address] Keiko Hallman MD [address] [facility] [place] [address] 11/20/2023 11:00 AM EDT Appointment [facility] Radiology [address] [phone] Ricci Carter MD [address] [place] [address] 11/20/2023 11:30 AM EDT Appointment [facility]iology [facility] [address] [facility] [place] [phone] Ricci Carter MD [address] [place] [address] 03/05/2024 11:00 AM EST Consult [facility] Cardiology [address] [place] [phone] Ricci Carter MD [address] [place], [place] [phone] Jamil Ralph MD [address] [place] [facility] [address] [place], [place] [phone] 05/30/2024 9:00 AM EST Office Visit [facility] Department of Internal Medicine [facility] [place][Note 2] [address] [place] [address] [address] [place], [place] [phone] Cnosuelo Hobbs PA-C [address] [place] [address] Scheduled Referrals Name Type Priority Associated Diagnoses Orde r Schedule Amb Referral to Therapy Services (PT or OT) Outpatient Referral Routine Achilles tendinitis, unspecified laterality Foot pain, bilateral Ordered: 07/04/2023 documented as of this encounter Visit Diagnoses Diagnosis Achilles tendinitis, unspecified laterality- Primary Foot pain, bilateral documented in this encounter Care Teams Manager Public Relationship Specialty Start Date End Date Consuelo Hobbs PA-C [address] [place] [address] [address] [place] [address] PCP - General 05/01/19 Madi Sharp MD [address] [place] [address] Gastroenterology 10/02/19 documented as of this encounter
--- OUTSIDE RECORDS SUMMARY | 2023-10-29 17:44 | XMS_ITS | Encounter Summary ---
Author Organization [facility] Address [address] [place] [address] Care Team Providers Care Oil Expeller Name Role Phone Consuelo Hobbs PA-C Primary Care Provider Madi Sharp MD Unavailable [phone] Reason for Visit * Reason Comments Medication Refill Encounter Details Date Type Department Care Team (Late Contact Info) Description 04/15/2023 Refill [facility] Department of Internal Medicine & Nephrology [place] [address] [facility] [address] [place] [phone] Consuelo Hobbs PA-C 12[address] [facility] [address] [place], [place] [phone] Migraine with status migrainosus, not intractable, unspecified [...] 7:45 AM EDT Office Visit [facility] Medical Oncology at [address] [phone] Ricci Carter MD [address] [place], [place] [phone] 11/13/2023 8:30 AM EDT Infusion [facility] Cancer [place] at [facility] Out[facility] Infusion [facility] [address] [phone] Ricci Carter MD [address] [place], [place] [phone] Keiko Hallman MD 80 [facility] [place] [address] 11/20/2023 11:00 AM EDT Appointment [facility] Radiology [facility] [address] [place] [phone] Ricci Carter MD [address] [place], [place] [phone] 11/20/2023 11:30 AM EDT Appointment [facility] Radiology [facility] [address] [place] [phone] Ricci Carter MD [address] [place], [place] [phone] 03/05/2024 11:00 AM EST Consult [facility] Cardiology [address] [place] [address] [phone] Ricci Carter MD [address] [place], [place] [phone] Jamil Ralph MD [address] [place] [address] 05/30/2024 9:00 AM EST Office Visit [facility] Department of Internal Medicine [facility] 1210 [facility] [address] [place] [address] Consuelo Hobbs PA-C [address] [facility] [address] [place] [address] documented as of this encounter Visit Diagnoses Diagnosis Migraine with status migrainosus, not intractable, unspecified migraine type documented in this encounter Care Teams Oil Expeller Relationship Specialty Start Date End Date Consuelo Hobbs PA-C [address] [place] [address] PCP - General 05/01/19 Madi Sharp MD [address] [address] Gastroenterology 10/02/19 documented as of this encounter
--- OUTSIDE RECORDS SUMMARY | 2023-10-29 17:44 | XMS_ITS | Encounter Summary ---
Author Organization [facility] Address [address] [place] [address] Care Team Providers Care Silk Opener Name Role Phone Consuelo Hobbs PA-C Primary Care Provider Madi Sharp MD Unavailable [phone] Encounter Details Date Type Department Care Team (Late st Contact Info) Description 04/04/2023 Orders Only [facility] Medical Oncology at [address] [phone] Ricci Carter MD [address] [place] [address] Social History Tobacco Use Types Packs/Day Years [...] Description 11/13/2023 7:45 AM EDT Office Visit [facility] Medical Oncology at [address] [phone] Ricci Carter MD [address] [place] [address] 11/13/2023 8:30 AM EDT Infusion [facility] Cancer [place] at [facility] Out[facility] Infusion Center [address] [phone] Ricci Carter MD [address] [place], [place] [phone] Keiko Hallman MD 80 [facility] [place] [address] 11/20/2023 11:00 AM EDT Appointment [facility] Radiology [facility] [address] [place] [phone] Ricci Carter MD [address] [place], [place] [phone] 11/20/2023 11:30 AM EDT Appointment [facility] Radiology [facility] [address] [place] [phone] Ricci Carter MD [address] [place], [place] [phone] 03/05/2024 11:00 AM EST Consult [facility] Cardiology [address] [place] [phone] Ricci Carter MD [address] [place] [address] Jamil Ralph MD [address] [facility] [address] [place] [address] 05/30/2024 9:00 AM EST Office Visit [facility] Department of Internal Medicine [facility] 1210 [facility] [address] [place] [address] Consuelo Hobbs PA-C [address] [place] [address] documented as of this encounter Visit Diagnoses Not on filedocumented in this encounter Care Teams Silk Opener Relationship Specialty Start Date End Date Consuelo Hobbs PA-C [address] [place] [phone] PCP - General 05/01/19 Madi Sharp MD [address] [place] [address] Gastroenterology 10/02/19 documented as of this encounter
--- OUTSIDE RECORDS SUMMARY | 2023-10-29 17:44 | XMS_ITS | Encounter Summary ---
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) Procedures MRI Pelvis w w/o contrast Ricci Carter MD [address] [place] [address] Referral ID Status Reason Start Date Expiration Date V isits Requested Visits Authorized [id number] Pending Review 06/20/2023 06/20/2024 1 1 * Diagnostic Imaging (Routine) - Pending Review Specialty Diagnoses / Procedures Referred By Contbalbir t Referred To Contact Diagnoses Carcinoid tumor of ileum, 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) Procedures MRI Abdomen w w/o contrast Ricci Carter MD [address] [place] [address] Referral ID Status Reason Start Date Expiration Date V isits Requested Visits Authorized [id number] Pending Review 06/20/2023 06/20/2024 1 1 Encounter Details Date Type Department Care Team (Late st Contact Info) Description 06/20/2023 8:15 AM EDT Office Visit [facility] Medical Oncology at [facility] [address] [place] [phone] Ricci Carter MD [address] [place] [address] Carcinoid tumor of ileum, unspecified whether malignant (HCC) (Primary Dx); Malignant carcinoid tumor of ileum (HCC); Encounter for monitoring octreotide therapy; Vitamin D deficiency; Chronic diarrhea; Oncology follow-up encounter; Elevated transaminase level; Daily consumption of alcohol; History of iron deficiency anemia Social History Tobacco Use Types Packs/Day [...] Sign Reading Time Taken Comments Blood Pressure 138/86 06/20/2023 8:14 AM EDT Pulse 83 06/20/2023 8:14 AM EDT Temperature 35.9 ??C (96.7 ??F) 06/20/2023 8:14 AM ED T Respiratory Rate 18 06/20/2023 8:14 AM EDT Oxygen Saturation 98% 06/20/2023 8:14 AM EDT Inhaled Oxygen Concentration - - Weight 76.2 kg (168 lb) 06/20/2023 8:14 AM EDT Height - - Body Mass Index 29.77 06/06/2023 8:16 AM EST documented in this encounter Progress Notes * Ricci Carter MD - 06/20/2023 8:15 AM EDT Images from the original note were not included. Medical Oncology/Hematology Progress Note Healthcare Team: Consuelo Hobbs PA-C Subjective: Date of visit is: 06/20/2023 Rody Sotelo is a 53 y.o. female who presents here today for a follow- up visit regarding carcinoid. ONCOLOGY HISTORY: - December 16, 2019, colonoscopy was normal. Interim History: She is here alone. She is feeling fatigued. She has been dealing with migraines. She is not sleeping well. She signed up for mindful drinking program. 4 drinks on weekends, and 2 drinks on week days. She was drinking more. Her diarrhea has not been too bad. 3-5 episodes per day. She feels better and less urgency. - taking loperamide daily, 12 mg per day - taking colestipol twice daily - taking granisetron 2 mg at bedtime - has not taken short acting octreotide Denies abdominal pain or cramping. Denies nausea or vomiting. She denies flushing. She reports no side effects from Sandostatin LAR. LMP- May 2023 She reports no pain Pain: 0 REVIEW OF SYSTEMS: Review of Systems Constitutional: Positive for fatigue. Negative for appetite change, chills, diaphoresis, fever and unexpected weight change. Respiratory: Negative for cough and shortness of breath. Gastrointestinal: Negative for blood in stool and vomiting. Endocrine: Positive for hot flashes (stable). Musculoskeletal: Positive for arthralgias (feet). Negative for back pain and myalgias. Neurological: Negative for dizziness and light-headedness. Psychiatric/Behavioral: Positive for sleep disturbance. The remainder of the 12- point ROS are within normal limits with the exceptions as noted in the HPI. Medications Outpatient Medications Marked as Taking for the 06/20/23 encounter (Office Visit) with Ricci Carter MD: ??? busPIRone (BUSPAR) 10 MG tablet, Take 1 tablet (10 mg total) by mouth nightly., Disp: , Rfl: ??? calcium carbonate (OS-ANGELICA) 600 MG tablet, Take 1 tablet (600 mg total) by mouth every morning with breakfast., Disp: , Rfl: ??? Cannabis (MARIJUANA) [facility] Medical Prescription Strength, as needed., Disp: , Rfl: ??? colestipol (COLESTID) 1 g tablet, TAKE 2 TABLETS(2 GRAMS) BY MOUTH TWICE DAILY WITH FULL GLASS OF WATER, Disp: 120 tablet, Rfl: 5 ??? ergotamine-caffeine (CAFERGOT) 1-100 MG per tablet, TAKE 1 TABLET BY MOUTH TWICE DAILY NEEDED, Disp: 6 tablet, Rfl: 0 ??? famotidine (PEPCID) 40 MG tablet, Take 1 tablet (40 mg total) by mouth daily., Disp: , Rfl: ??? Ferrous Bisglycinate Chelate 28 MG Cap, Take 28 mg by mouth daily., Disp: , Rfl: ??? granisetron (KYTRIL) 1 MG tablet, Take 2 tablets (2 mg total) by mouth daily., Disp: 60 tablet,Rfl: 5 ??? loperamide (IMODIUM A-D) 2 MG capsule, Take 1 capsule (2 mg total) by mouth 4 (four) times a day as needed for diarrhea., Disp: , Rfl: ??? MILK THISTLE PO, Take by mouth 3 times a day., Disp: , Rfl: ??? Multiple Vitamins-Minerals (Multi Complete) Cap, Take 1 capsule by mouth See Admin Instructions., Disp: , Rfl: ??? octreotide (SandoSTATIN) 100 MCG/ML injection, Inject 1 mL (100 mcg total) under the skin 3 times daily (every 8 hours) as needed (diarrhea, flushing)., Disp: 90 mL, Rfl: 11 ??? pancrelipase, Hdg-Gosq-Bgen, (Creon) [address]30-603331 units Cap DR Particles capsule, Take 1 capsule (36,000 units of lipase total) by mouth 3 (three) times a day with meals. Dose is in units of lipase., Disp: 90 capsule, Rfl: 5 ??? rizatriptan (MAXALT-HEAT TREAT WORKER) 10 MG disintegrating tablet, DISSOLVE 1 TABLET ON THE TONGUE EVERY DAYAS NEEDED, Disp: 9 tablet, Rfl: 0 ??? valsartan (DIOVAN) 160 MG tablet, TAKE 1 TABLET(160 MG) BY MOUTH DAILY, Disp: 90 tablet, Rfl: 1 ??? vitamin D3 (CHOLECALCIFEROL) 1.25 MG (04082 UT) tablet, Take 1 tablet (50,000 Units total) by mouth once a week., Disp: 24 tablet, Rfl: 1 Objective: Wt Readings from Last 2 Encounters: 06/20/23 76.2 kg (168 lb) 06/13/23 77.1 kg (170 lb) Physical Exam Vitals: 06/20/23 0814 BP: 138/86 BP Location: Right arm Pulse: 83 Resp: 18 Temp: 96.7 ??F (35.9 ??C) TempSrc: Tympanic SpO2: 98% Weight: 76.2 kg (168 lb) Performance status: ECOG (0) Fully active, able [...] Thought content normal. Judgment: Judgment normal. Results: Medicine note reviewed Lab Results Component Value Date WBC 6.2 [...] 45 % (calc) Final Assessment/Plan: 1. Carcinoid, [id number] A. Diagnosed July 11, 2013 1. S/p [...] is not compromised) Rody is here for oncologic follow- up for the ongoing management of her advanced carcinoid. She is receiving Sandostatin LAR. She received her most recent dose on June 06, 2023. She is tolerating Sandostatin LAR well, without adverse effects or toxicities. She does respond well to Sandostatin LAR. Since last seen, her diarrheal stools have increased in frequency. I suspect this could be on the basis of alcohol intake. I recommended that she continue Creon, colestipol twice daily and granisetron at night. She will also continue loperamide as needed for breakthrough symptoms. She has not used any short acting octreotide. Overall, she is clinically stable. Continue Sandostatin LAR 40 mg every 21 days. I have ordered surveillance MRI of abdomen and pelvis. She will need a chromogranin in future. I will order at time of next visit. ECHO- June 2021. 2. Normocytic anemia, secondary to iron deficiency On June 06, 2023, her hemoglobin and MCV were normal. Her serum ferritin measured 70 ng/mL with iron saturation of 30%. Continue iron bisglycinate, as long as she is tolerating well. 3. Vitamin D deficiency She is receiving vitamin D, 50,000 units once weekly. Normal serum calcium level, June 06, 2023. 4. Elevated AST and ALT She has mild elevation in AST and ALT, which remains stable as measured on June 06, 2023. Etiology not entirely clear, but likely alcohol related, which she acknowledged. She does not take APAP. I recommended that she abstain alcohol, but if not to decrease daily alcohol intake. On June 13, 2023, she was seen by her primary care provider for hypertension and snoring. Recommended increasing valsartan to 160 mg daily. Sleep study was advised. She will call and make appt. I reminded her to schedule her yearly mammogram (late July 2023). She will make appt for mammogram. She remains tobacco free x 2 years. Immunizations: Received 2 doses of shingles vaccine Received influenza immunization 2022 ORDERS 1. Carcinoid tumor of ileum, unspecified whether malignant (HCC) 2. Malignant carcinoid tumor of ileum (HCC) - MRI Abdomen w w/o contrast; Future - MRI Pelvis w w/o contrast; Future Number and complexity of problems addressed- moderate Amount and/or complexity of data to be reviewed and analyzed- moderate Risk of complications and/or morbidity or mortality of patient management- high No orders of the defined types were placed in this encounter. The patient will return in 2 months. There are no Patient Instructions on file for this visit. documented in this encounter Plan of Treatment Upcoming Encounters Date Type Department Care Team (Late Contact Info) Description 11/13/2023 7:45 AM EDT Office Visit [facility] Medical Oncology at [address] [phone] Ricci Carter MD [address] [place] [address] 11/13/2023 8:30 AM EDT Infusion [facility] Cancer [place] at [facility] Outpatient Infusion Center [address] [phone] Ricci Carter MD [address] [place] [address] Keiko Hallman MD 80 [facility] [place] [address] 11/20/2023 11:[address] [facility] Radiology [facility] [address] [place] [phone] Ricci Carter MD [address] [place], [place] [phone] 11/20/2023 11:[address] [facility] Radiology [place] [facility] [address] [place] [phone] Ricci Carter MD [address] [place], [place] [phone] 03/05/2024 11:00 AM EST Consult [facility] Cardiology [address] [place] [phone] Ricci Carter MD [address] [place], [place] [phone] Jamil Ralph MD [address] [facility] [address] [place] [address] 05/30/2024 9:00 AM EST Office Visit [facility] Department of Internal Medicine 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) Expected: 06/20/2023, Expires: 06/19/2024 documented as of this encounter Visit Diagnoses Diagnosis Carcinoid tumor of ileum, unspecified whether malignant (HCC)- Primary Malignant carcinoid tumor of ileum (HCC) Malignant carcinoid tumor of the ileum Encounter for monitoring octreotide therapy Vitamin D deficiency Chronic diarrhea Diarrhea Oncology follow-up encounter Elevated transaminase level Daily consumption of alcohol History of iron deficiency anemia Personal history of diseases of blood and blood-forming organs documented in this encounter Care Teams Land Surveyor Relationship Specialty Start Date End Date Consuelo Hobbs PA-C [address] [place] [address] PCP - General 05/01/19 Madi Sharp MD [address] [place] [address] Gastroenterology 10/02/19 documented as of this encounter
--- OUTSIDE RECORDS SUMMARY | 2023-10-29 17:44 | XMS_ITS | Encounter Summary ---
Author Organization [facility] Address [address] [place] [address] Care Team Providers Care Embossing Clerk Name Role Phone Consuelo Hobbs PA-C Primary Care Provider Madi Sharp MD Unavailable [phone] Reason for Visit * Reason Comments Follow-up Encounter Details Date Type Department Care Team (Late st Contact Info) Description 06/13/2023 9:40 AM EDT Office Visit [facility] Department of Internal Medicine [facility] [address] [place] [address] [place] [address] Consuelo Hobbs PA-C 1210 [facility] [address] [place] [phone] Hypertension, unspecified type (Primary Dx); Snoring Social History Tobacco Use Types Packs/Day Years [...] Sign Reading Time Taken Comments Blood Pressure 136/84 06/13/2023 9:25 AM EDT Pulse 88 06/13/2023 9:25 AM EDT Temperature - - Respiratory Rate - - Oxygen Saturation 98% 06/13/2023 9:25 AM EDT Inhaled Oxygen Concentration - - Weight 77.1 kg (170 lb) 06/13/2023 9:25 AM EDT Height - - Body Mass Index 30.12 06/06/2023 8:16 AM EST documented in this encounter Progress Notes * Consuelo Hobbs PA-C - 06/13/2023 9:40 AM EDT Images from the original note were not included. [address] [address] Date: 06/13/2023 Patient Name: Rody Sotelo Date of : 1970 Patient Care Team Patient Care Team: Consuelo Hobbs PA-C as PCP - General Madi Sharp MD (Gastroenterology) Reason for Visit Chief complaint: 2week fuv HPI 2wk fuv after cpe 05/30/2023 Labs: ua, tsh, lipid, hiv, hep c 06/06/2023 cbc, completely fine, not anemic ast 45, alt 61- stable Iron: 143, ferritin 70 Vit D 32 HTN- valsartan 80mg daily since 05/30/2023, I'm proved today compared to cpe SNORING- sleep study advised- appt-- not yet Dr. ashby-- neighborhood planner Past Medical History Past Medical History: Diagnosis [...] 11/25/2022 Preliminary Information: Procedure: COLONOSCOPY; Surgeon: Madi Shrap MD; Location: [facility]; Service: Gastroenterology; Laterality: N/A; ??? ENDOSCOPY ??? ENDOSCOPY UPPER N/A 04/22/2021 Preliminary Information: Procedure: ENDOSCOPY UPPER; Surgeon: Madi Sharp MD; Location: [facility]; Service: Gastroenterology; Laterality: N/A; ??? HEMICOLECTOMY Right [...] Subcutaneous, Every 8 hours PRN ??? pancrelipase, Vbk-Qkev-Qbli, (Creon) [id number] units Cap DR Particles capsule 36,000 units of lipase, Oral, 3 times daily with meals, Dose is in units of lipase. ??? rizatriptan (MAXALT-MANNEQUIN REFINISHER) 10 MG disintegrating tablet DISSOLVE 1 TABLET ON THE TONGUE EVERY DAY NEEDED ??? valsartan (DIOVAN) 160 MG tablet TAKE 1 TABLET(160 MG) BY MOUTH DAILY ??? vitamin D3 50,000 Units, Oral, Weekly ROS Review of Systems Vitals Vitals: 06/13/23 0925 BP: 136/84 Pulse: 88 SpO2: 98% BP Readings from Last 3 Encounters: 06/13/23 136/84 06/06/23 (!) 118/58 05/30/23 (!) 144/90 Wt Readings from Last 3 Encounters: 06/13/23 170 lb (77.1 kg) 06/06/23 167 lb (75.8 kg) 05/30/23 164 lb (74.4 kg) BMI: Estimated body mass index is 30.12 kg/m?? as calculated from the following: Height as of 06/06/23: 5' 2.99 (1.6 m). Weight as of this encounter: 170 lb (77.1 kg). BSA: Estimated body surface area is 1.85 meters squared as calculated from the following: Height as of 06/06/23: 5' 2.99 (1.6 m). Weight as of this encounter: 170 lb (77.1 kg). Physical Exam Physical Exam Constitutional: General: She is not in acute distress. Appearance: She is not ill-appearing. Cardiovascular: Rate and Rhythm: Normal rate and regular rhythm. Pulmonary: Effort: No respiratory distress. Breath sounds: No wheezing, rhonchi or rales. Musculoskeletal: Right lower leg: No edema. Left lower leg: No edema. Neurological: Mental Status: She is alert and oriented to person, place, and time. Results Recent Results (from the past 168 hour(s)) POCT Complete Blood Count (Oncology) Collection Time: 06/06/23 8:58 AM Result Value Ref Range White Blood Cell Count 6.2 4.0 - 11.0 Thou/uL Red Blood Cell Count 4.19 4.00 - 5.40 Mil/uL Hemoglobin 12.4 11.7 - 15.7 g/dL Hematocrit 38.2 35.0 - 47.0 % MCV 91 80 - 100 fL MCH 29.6 27.0 - 31.0 pg MCHC 32.5 30.0 - 36.0 g/dL RDW 12.6 11.5 - 14.5 % Platelet Count 240 150 - 450 Thou/uL MPV 10.4 7.5 - 12.5 fL Neutrophils Auto 57.0 % Abs Neutrophils Auto 3.50 2.00 - 7.50 Thou/uL Lymphocytes Auto 33.9 % Abs Lymphocytes Auto 2.10 1.50 - 4.50 Thou/uL Mixed Mononuclear Auto 9.1 % Abs Mixed Mononuclear Auto <1.00 0.20 - 1.90 Thou/uL BASIC METABOLIC PANEL Collection Time: 06/06/23 8:58 AM Result Value Ref Range Glucose 102 (H) 65 - 99 mg/dL Blood Urea Nitrogen (BUN) 14 7 - 25 mg/dL Creatinine 0.75 0.50 - 1.03 mg/dL Creatinine w/ eGFR 96 > OR = 60 mL/min/1.73m2 BUN/Creatinine Ratio SEE NOTE: 6 - 22 (calc) Sodium 139 135 - 146 mmol/L Potassium 4.4 3.5 - 5.3 mmol/L Chloride 101 98 - 110 mmol/L CO2 21 20 - 32 mmol/L Calcium 9.5 8.6 - 10.4 mg/dL HEPATIC FUNCTION PANEL Collection Time: 06/06/23 8:58 AM Result Value Ref Range Protein, Total 6.8 6.1 - 8.1 g/dL Albumin 4.2 3.6 - 5.1 g/dL Globulin 2.6 1.9 - 3.7 g/dL (calc) Albumin/Globulin Ratio 1.6 1.0 - 2.5 (calc) Bilirubin, Total 0.4 0.2 - 1.2 mg/dL Bilirubin, Direct 0.1 < OR = 0.2 mg/dL Bilirubin, Indirect 0.3 0.2 - 1.2 mg/dL (calc) Alkaline Phosphatase 76 37 - 153 U/L Aspartate Aminotrans (AST) 45 (H) 10 - 35 U/L Alanine Aminotrans (ALT) 61 (H) 6 - 29 U/L Iron, TIBC, and Ferritin Panel Collection Time: 06/06/23 8:58 AM Result Value Ref Range Iron 143 45 - 160 mcg/dL Total Iron Binding Capacity 483 (H) 250 - 450 mcg/dL (calc) Iron Saturation 30 16 - 45 % (calc) Ferritin 70 16 - 232 ng/mL VITAMIN D, 25-HYDROXY Collection Time: 06/06/23 8:58 AM Result Value Ref Range Vitamin D,25-Oh,Total, [place] 32 30 - 100 ng/mL RETICULOCYTE COUNT Collection Time: 06/06/23 8:58 AM Result Value Ref Range Reticulocyte Count 0.9 % Reticulocyte, Absolute 40,590 20,000 - 80,000 cells/uL ECG Assessment 1. Hypertension, unspecified type 2. Snoring Plan/ Orders No orders of the defined types were placed in this encounter. No orders of the defined types were placed in this encounter. Discussion/ Summary Labs: ua, tsh, lipid, hiv, hep c Still pending, reminded her to complete Reviewed recent labs: 06/06/2023 cbc, completely fine, not anemic ast 45, alt 61- stable Iron: 143, ferritin 70 Vit D 32 HTN On valsartan 80mg daily since 05/30/2023, but remain above goal Lets increase to 160mg daily She will monitor at home and follow up on Mychart with readings SNORING sleep study advised, she will call to book Consuelo Hobbs PA-C Electronically signed by Consuelo Hobbs PA-C 06/13/2023 documented in this encounter Plan of Treatment Upcoming Encounters Date Type Department Care Team (Late st Contact Info) Description 11/13/2023 7:45 AM EDT Office Visit [facility] [place] [facility] at [address] [phone] Ricci Carter MD [address] [place] [address] 11/13/2023 8:30 AM EDT Infusion [facility] [place] at [facility] Out[facility]fusion Center [address] [phone] Ricci Carter MD [address] [place], [place] [phone] Keiko Hallman MD 80 [facility] [place] [address] 11/20/2023 11:00 AM EDT Appointment [facility] Radiology [facility] [address] [place] [phone] Ricci Carter MD [address] [place] [address] 11/20/2023 11:30 AM EDT Appointment [facility] Radiology [facility] [address] [place] [phone] Ricci Carter MD [address] [place], [place] [phone] 03/05/2024 11:00 AM EST Consult [facility] Cardiology [place] [address] [facility] [address] [place] [phone] Ricci Carter MD [address] [place] [address] Jamil Ralph MD [address] [facility] [address] [place], [place] [phone] 05/30/2024 9:00 AM EST Office Visit [facility] Department of Internal [facility] [address] [address] Consuelo Hobbs PA-C [address] [phone] documented as of this encounter Visit Diagnoses Diagnosis Hypertension, unspecified type- Primary Snoring Other dyspnea and respiratory abnormality documented in this encounter Care Teams Embossing Clerk Relationship Specialty Start Date End Date Consuelo Hobbs PA-C [address] [place] [address] [phone] PCP - General 05/01/19 Madi Sharp MD [address] [place] [address] Gastroenterology 10/02/19 documented as of this encounter
--- OUTSIDE RECORDS SUMMARY | 2023-10-29 17:44 | XMS_ITS | Encounter Summary ---
Author Organization [facility] Address [address] [place] [address] Care Team Providers Care Rock Drill Operator Name Role Phone Consuelo Hobbs PA-C Primary Care Provider Madi Sharp MD Unavailable [phone] Reason for Visit * Reason Comments Medication Refill Encounter Details Date Type Department Care Team (Late st Contact Info) Description 06/13/2023 Refill [facility] Department of Internal Medicine [facility] 1210 [facility] [address] [place] [phone] Consuelo Hobbs PA-C [address] [facility] [address] [place] [phone] Hypertension, unspecified type Social History Tobacco Use [...] Description 11/13/2023 7:45 AM EDT Office Visit [facility] Medical Oncology at [address] [phone] Ricci Carter MD [address] [place], [place] [phone] 11/13/2023 8:30 AM EDT Infusion [facility] Cancer [place] [facility]fusion Center [address] [phone] Ricci Carter MD [address] [place], [place] [phone] Keiko Hallman MD 80 [facility] [place] [address] 11/20/2023 11:00 AM EDT Appointment [facility] Radiology [facility] [address] [place] [phone] Ricci Carter MD [address] [place], [place] [phone] 11/20/2023 11:30 AM EDT Appointment [facility] Radiology [facility] [address] [place] [phone] Ricci Carter MD [address] [place], [place] [phone] 03/05/2024 11:00 AM EST Consult [facility] Cardiology [address] [place] [address] [phone] Ricci Carter MD [address] [place], [place] [phone] Jamil Ralph MD [address] [place] [address] 05/30/2024 9:00 AM EST Office Visit [facility] Department of Internal Medicine [facility] 1210 [facility] [address] [place] [address] Consuelo Hobbs PA-C [address] [phone] documented as of this encounter Visit Diagnoses Diagnosis Hypertension, unspecified type documented in this encounter Care Teams Rock Drill Operator Relationship Specialty Start Date End Date Consuelo Hobbs PA-C [address] [place] [address] PCP - General 05/01/19 Madi Sharp MD [address] [address] Gastroenterology 10/02/19 documented as of this encounter
--- OUTSIDE RECORDS SUMMARY | 2023-10-29 17:44 | XMS_ITS | Encounter Summary ---
Author Organization [facility] Address [address] [place] [address] Care Team Providers Care Obstetrics Gyn Physician Name Role Phone Consuelo Hobbs PA-C Primary Care Provider Madi Sharp MD Unavailable [phone] Reason for Visit * Reason Comments Labs Only Encounter Details Date Type Department Care Team (Late st Contact Info) Description 06/06/2023 9:00 AM EST Lab [facility] [place] [facility] at [address] [phone] Ricci Carter MD [address] [place] [address] Carcinoid tumor of ileum, unspecified whether malignant [...] [facility] Medical Oncology at [address] [phone] Ricci Carter MD [address] [place], [place] [phone] 11/13/2023 8:30 AM EDT Infusion [facility] [place] [facility]fusion Center [address] [phone] Ricci Carter MD [address] [place], [place] [phone] Keiko Hallman MD 80 [facility] [place] [address] 11/20/2023 11:00 AM EDT Appointment [facility] Radiology [facility] [address] [place] [phone] Ricci Carter MD [address] [place], [place] [phone] 11/20/2023 11:30 AM EDT Appointment [facility] Radiology [facility] [address] [place] [phone] Ricci Carter MD [address] [place], [place] [phone] 03/05/2024 11:00 AM EST Consult [facility] Cardiology [address] [place] [phone] Ricci Carter MD [address] [place], [place] [phone] Jamil Ralph MD [address] [place] [address] 05/30/2024 9:00 AM EST Office Visit [facility] Department of Internal Medicine [facility] 1210 [facility] [address] [place] [address] Consuelo Hobbs PA-C [address]10 [facility] [address] [place] [address] documented as of this encounter Procedures Procedure Name Priority Date/Time Associated Diagnosis Comments POCT COMPLETE BLOOD COUNT (ONCOLOGY - INTERFACED NO CHARGE) Routine 06/06/2023 8:58 AM EST Carcinoid tumor of ileum, unspecified whether malignant (HCC) IRON, TIBC, AND FERRITIN PANEL Routine 06/06/2023 8:58 AM EST Carcinoid tumor of ileum, unspecified whether malignant (HCC) VITAMIN D, 25-HYDROXY Routine 06/06/2023 8:58 AM EST Carcinoid tumor of ileum, unspecified whether malignant (HCC) RETICULOCYTE COUNT Routine 06/06/2023 8: 58 AM EST Carcinoid tumor of ileum, unspecified whether malignant (HCC) HEPATIC FUNCTION PANEL Routine 06/06/2023 8:58 AM EST Carcinoid tumor of ileum, unspecified whether malignant (HCC) BASIC METABOLIC PANEL Routine 06/06/2023 8:58 AM EST Carcinoid tumor of ileum, unspecified whether malignant (HCC) documented in this encounter Results * RETICULOCYTE COUNT (06/06/2023 8:58 AM EST) Reticulocyte Count 0.9 % [facility] after[employer]OT-[employer] Reticulocyte, Absolute 40,590 20,000 - 80,000 cells/uL [employer] Blood specimen (specimen) Blood specimen / Unknown 06/06/2023 8:58 AM EST 06/06/2023 5:05 PM EST Ricci Carter MD LAB BLOOD ORDERABLES Performing Organization Address [facility] de Phone Number [address] [place] [phone] * VITAMIN D, 25-HYDROXY (06/06/2023 8:58 AM EST) Pathologist [facility] Vitamin D,25-Oh,Total, [place] 32 30 - 100 ng/mL [employer] Comment: Vitamin D Status ? 25-OH Vitamin D: Deficiency: ?<20 ng/mL Insufficiency: ? 20 - 29 ng/mL Optimal: ? > or = 30 ng/mL For 25-OH Vitamin D testing on patients on D2-supplementation and patients for whom quantitation of D2 and D3 fractions is required, the QuestAssureD(TM) 25-OH VIT D, (D2,D3), LC/MS/MS is recommended: order code 68753 (patients >2yrs). See Note 1 Note 1 For additional information, please refer to http://education.B5M.COM/faq/KAQ762 (This link is being provided for informational/ educational purposes only.) Blood specimen (specimen) Blood specimen / Unknown 06/06/2023 8:58 AM EST 06/06/2023 5:05 PM EST Ricci Carter MD LAB BLOOD ORDERABLES Performing Organization Address [facility] de Phone Number [address] [place] [phone] * (ABNORMAL) Iron, TIBC, and Ferritin Panel (06/06/2023 8:58 AM EST) [facility] Iron 143 45 - 160 mcg/dL [employer] Total Iron Binding Capacity 483(H) 250 - 450 mcg/dL (calc) [facility] Iron Saturation 30 16 - 45 % (calc) [employer] Ferritin 70 16 - 232 ng/mL [employer] Blood specimen (specimen) Blood specimen / Unknown 06/06/2023 8:58 AM EST 06/06/2023 5:05 PM EST Ricci Carter MD LAB BLOOD ORDERABLES Performing Organization Address [facility] de Phone Number [facility] [address] [place] [phone] * (ABNORMAL) HEPATIC FUNCTION PANEL (06/06/2023 8:58 AM EST) [facility] Protein, Total 6.8 6.1 - 8.1 g/dL [employer] Albumin 4.2 3.6 - 5.1 g/dL [facility] Globulin 2.6 1.9 - 3.7 g/dL (calc) [employer] Albumin/Globulin Ratio 1.6 1.0 - 2.5 (calc) [employer] Bilirubin, Total 0.4 0.2 - 1.2 mg/dL [employer] Bilirubin, Direct 0.1 < OR = 0.2 mg/dL [employer] Bilirubin, Indirect 0.3 0.2 - 1.2 mg/dL (calc) [employer] Alkaline Phosphatase 76 37 - 153 U/L [employer] Aspartate Aminotrans (AST) 45(H) 10 - 35 U/L [employer] Alanine Aminotrans (ALT) 61(H) 6 - 29 U/L [facility] Blood specimen (specimen) Blood specimen / Unknown 06/06/2023 8:58 AM EST 06/06/2023 5:05 PM EST Ricci Carter MD LAB BLOOD ORDERABLES [address] [place] [phone] * (ABNORMAL) BASIC METABOLIC PANEL (06/06/2023 8:58 AM EST) Pathologist [facility] Glucose 102(H) 65 - 99 mg/dL [employer] Comment: ? Fasting reference interval For someone without known diabetes, a glucose value between 100 and 125 mg/dL is consistent with prediabetes and should be confirmed with a follow-up test. Blood Urea Nitrogen (BUN) 14 7 - 25 mg/dL [employer] Creatinine 0.75 0.50 - 1.03 mg/dL [facility] Creatinine w/ eGFR 96 > OR = 60 mL/min/1. 73m2 [facility] BUN/Creatinine Ratio SEE NOTE: (calc) [employer] Comment: ?? Not Reported: BUN and Creatinine are within ?? reference range. ? Sodium 139 135 - 146 mmol/L [employer] Potassium 4.4 3.5 - 5.3 mmol/L [employer] Chloride 101 98 - 110 mmol/L [employer] CO2 21 20 - 32 mmol/L [facility] Calcium 9.5 8.6 - 10.4 mg/dL [facility] Blood specimen (specimen) Blood specimen / Unknown 06/06/2023 8:58 AM EST 06/06/2023 5:05 PM EST Ricci Carter MD LAB BLOOD ORDERABLES [address] [place] [phone] * POCT Complete Blood Count (Oncology) (06/06/2023 8:58 AM EST) Pathologist [facility] White Blood Cell Count 6.2 4.0 - 11.0 Thou/uL 06/06/2023 9:04 AM EST [facility] Cancer [facility] Red Blood Cell Count 4.19 4.00 - 5.40 Mil/uL 06/06/2023 9:04 AM [facility] Hemoglobin 12.4 11.7 - 15.7 g/dL 06/06/2023 9:04 AM [facility] Hematocrit 38.2 35.0 - 47.0 % 06/06/2023 9:04 AM [facility] MCV 91 80 - 100 fL 06/06/2023 9:04 AM [facility] MCH 29.6 27.0 - 31.0 pg 06/06/2023 9:04 AM [facility] MCHC 32.5 30.0 - 36.0 g/dL 06/06/2023 9:04 AM [facility] RDW 12.6 11.5 - 14.5 % 06/06/2023 9:04 AM [facility] Platelet Count 240 150 - 450 Thou/uL 06/06/2023 9:04 AM [facility] MPV 10.4 7.5 - 12.5 fL 06/06/2023 9:04 AM [facility] Neutrophils Auto 57.0 % 06/06/19 24 9:04 AM [facility] Abs Neutrophils Auto 3.50 2.00 - 7.50 Thou/uL 06/06/2023 9:04 AM [facility] Lymphocytes Auto 33.9 % 06/06/19 24 9:04 AM [facility] Abs Lymphocytes Auto 2.10 1.50 - 4.50 Thou/uL 06/06/2023 9:04 AM [facility] Mixed Mononuclear Auto 9.1 % 06/06/2023 9:04 AM [facility] Abs Mixed Mononuclear Auto <1.00 0.20 - 1.90 Thou/uL 06/06/2023 9:04 AM [facility] Blood specimen (specimen) Blood specimen / Unknown 06/06/2023 8:58 AM EST 06/06/2023 9:04 AM EST Ricci Carter MD POCT ORDERABLES - ON COLOGY [facility] [address] [place] [address], [facility] [place] [place] [address] [place] [address] documented in this encounter Visit Diagnoses Diagnosis Carcinoid tumor of ileum, unspecified whether malignant (HCC)- Primary documented in this encounter Care Teams Obstetrics Gyn Physician Relationship Specialty Start Date End Date Consuelo Hobbs PA-C [address] [facility] [address] [place] [address] PCP - General 05/01/19 Madi Sharp MD [address] [address] Gastroenterology 10/02/19 documented as of this encounter
--- OUTSIDE RECORDS SUMMARY | 2023-10-29 17:44 | XMS_ITS | Encounter Summary ---
Author Organization [facility] Address [address] [place] [address] Care Team Providers Care Reactor Technician Name Role Phone Consuelo Hobbs PA-C Primary Care Provider Madi Sharp MD Unavailable [phone] Encounter Details Date Type Department Care Team (Late st Contact Info) Description 06/06/2023 Orders Only [facility] Department of Internal Medicine & Nephrology [place] [address] [facility] [address] [place] [address] Consuelo Hobbs PA-C 1210 [facility] [address] [place], [place] [phone] Social History Tobacco Use Types Packs/Day Years [...] Description 11/13/2023 7:45 AM EDT Office Visit [facility] [place] [facility] at [address] [phone] Ricci Carter MD [address] [place], [place] [phone] 11/13/2023 8:30 AM EDT Infusion [facility] [place] at [facility]fusion [facility] [address] [phone] Ricci Carter MD [address] [place], [place] [phone] Keiko Hallman MD 80 [facility] [place] [address] 11/20/2023 11:00 AM EDT Appointment [facility] Radiology [facility] [address] [place] [phone] Ricci Carter MD [address] [place], [place] [id number] 11/20/2023 11:30 AM EDT Appointment [facility] Radiology [facility] [address] [place] [phone] Ricci Carter MD [address] [place], [place] [phone] 03/05/2024 11:00 AM EST Consult [facility] Cardiology [address] [place] [address] Ricci Carter MD [address] [place], [place] [phone] Jamil Ralph MD [address] [place] [address] 05/30/2024 9:00 AM EST Office Visit [facility] Department of Internal Medicine [facility] [address] [facility] [address] [place] [address] Consuelo Hobbs PA-C 1210 [facility] [address] [place], [place] [phone] documented as of this encounter Procedures Procedure Name Priority Date/Time Associated Diagnosis Comments TSH+FREE T4 Routine 06/06/2023 12:00 AM EST (REPORTABLE) HOUSE TRACKING ACCOUNT Routine 06/06/2023 12:00 AM EST (REPORT) CLIENT EDUCATION TRACKING Routine 06/06/2023 12:00 AM EST TSH REFLEX TO FREE T4 Routine 06/06/2023 12:00 AM EST LIPID PANEL WITH NONHDL Routine 06/06/2023 12:00 AM EST HIV 1/2 AG/AB CMIA REFLEX TO CONFIRMATION Routine 06/06/2023 12:00 AM EST URINALYSIS WITH MICROSCOPIC Routine 06/06/2023 12:00 AM EST URINE CULTURE Routine 06/06/2023 12:00 AM EST documented in this encounter Results * URINE CULTURE (06/06/2023 12:00 AM EST) Culture SEE NOTE [employer] Comment: ??CULTURE, URINE, ROUTINE ?Micro Number: ?[id number] ??Test Status: ? Final ??Specimen Source: ?? Urine ??Specimen Quality: ??Adequate ??Result: ?No Growth ? We received a preserved urine culture transport ? tube with either no order indicated or a source ? which is inappropriate for the test requested. A ? urine culture was performed. If this is not what ? you intended to order, please contact your local ? client coordinator immediately so that ? we can adjust our billing appropriately. You may ? also inquire about alternative or additional ? testing. 06/06/2023 06/09/2023 5:1 0 AM EST Narrative [facility] - 06/19/2023 3:56 PM EDT FASTING: UNKNOWN Consuelo Hobbs PA-C MICROBIOLOGY - GENERAL ORDERABLES Performing Organization Address City/State/[facility] Co de Phone Number [employer] [address] [place] [phone] * TSH+FREE T4 (06/06/2023 12:00 AM EST) TSH, Highly Sensitive 1.28 mIU/L [employer] Comment: ?Reference Range ?> or = 20 Years ??0.40-4.50 ? Ranges ?First trimester ?0.26-2.66 ?Second trimester ?? 0.55-2.73 ?Third trimester ?0.43-2.91 T4, Free 0.9 0.8 - 1.8 ng/dL [employer] 06/06/2023 06/09/2023 5:1 0 AM EST Narrative [facility] - 06/19/2023 3:56 PM EDT FASTING: UNKNOWN Consuelo WINKLER-aNndo LAB BLOOD ORDER KARTHIK Performing Organization Address [facility] de Phone Number [employer] [address] [place] [phone] * TSH REFLEX FREE T4 (06/06/2023 12:00 AM EST) TSH reflex Free T4 1.28 mIU/L [employer] Comment: ?Reference Range ?> or = 20 Years ??0.40-4.50 ? Ranges ?First trimester ?0.26-2.66 ?Second trimester ?? 0.55-2.73 ?Third trimester ?0.43-2.91 06/06/2023 06/09/2023 5:1 0 AM EST Narrative [facility] - 06/19/2023 3:56 PM EDT FASTING: UNKNOWN Consuelo WINKLER-C LAB BLOOD ORDER KARTHIK Performing Organization Address [facility] de Phone Number [employer] [address] [place] [address] * Client Education Tracking (06/06/2023 12:00 AM EST) Pathologist [facility] Client Education Tracking [employer] Comment: The Requisition we received did not include a [employer] [facility] account number. To prevent delays in testing and processing of your orders please provide the following information with every order submitted: [facility] account number and account name Client address Client phone and fax number NPI number of ordering physician along with the physician name. 06/06/2023 06/09/2023 5:1 0 AM EST Narrative [facility] - 06/19/2023 3:56 PM EDT FASTING: UNKNOWN Consuelo Hobbs PA-C LAB BLOOD ORDER KARTHIK Performing Organization Address [facility] Co de Phone Number [employer] [address] [place] [phone] * House Tracking Account (06/06/2023 12:00 AM EST) Pathologist [facility] Tracking House Account [employer] Comment: We were unable to identify an account number for the order submitted. If you do not have a [employer] account number or if your account information needs to be updated please call [phone] ([phone]) for assistance. To prevent delays in testing and processing of your orders please provide the following information for this order and with every additional order submitted: [facility] account number and account name Client address Client phone and fax number NPI number of ordering physician along with the physician name. 06/06/2023 06/09/2023 5:1 0 AM EST Narrative [facility] - 06/19/2023 3:56 PM EDT FASTING: UNKNOWN Consuelo Jaime WINKLER-C LAB BLOOD ORDER KARTHIK Performing Organization Address [facility] Co de Phone Number [employer] [address] [place] [phone] * HIV 1/2 Ag/Ab CMIA Reflex to Confirmation (06/06/2023 12:00 AM EST) [facility] HIV Ag/Ab, 4th Gen NON-REACT AMANDA NON-REACT AMANDA [employer] Comment: HIV-1 antigen and HIV-1/HIV-2 antibodies were not detected. There is no laboratory evidence of HIV infection. PLEASE NOTE: This information has been disclosed to you from records whose confidentiality may be protected by state law. ??If your state requires such protection, then the state law prohibits you from making any further disclosure of the information without the specific written consent of the person to whom it pertains, or as otherwise permitted by law. A general authorization for the release of medical or other information is NOT sufficient for this purpose. ?? For additional information please refer to http://education.White Ops/faq/ISZ193 (This link is being provided for informational/ educational purposes only.) The performance of this assay has not been clinically validated in patients less than 2 years old. 06/06/2023 06/09/2023 5:1 0 AM EST Narrative [facility] - 06/19/2023 3:56 PM EDT FASTING: UNKNOWN Consuelo Hobbs PA-C LAB BLOOD ORDER KARTHIK [employer] [address] [place] [phone] * Urinalysis with Microscopic (06/06/2023 12:00 AM EST) Color YELLOW YELLOW [facility] [employer] Clarity CLEAR CLEAR [employer] [facility] [facility] Specific [place] 1.023 1.001 - 1.035 [facility] [employer] pH 7.0 5.0 - 8.0 [facility] Glucose, Urine, Random NEGATIVE NEGATIVE [facility] Bilirubin NEGATIVE NEGATIVE [facility] Ketones NEGATIVE NEGATIVE [facility] [facility] Blood NEGATIVE NEGATIVE [facility] [employer] [facility] Protein NEGATIVE NEGATIVE [facility] [facility] Nitrite NEGATIVE NEGATIVE [facility] Leukocyte Esterase NEGATIVE NEGATIVE [facility] [facility] WBC NONE SEEN < OR = 5 /HPF [facility] RBC NONE SEEN < OR = 2 /HPF [facility] [facility] Squamous Epithelial Cells 0-5 < OR = 5 /HPF [facility] [employer] Bacteria NONE SEEN NONE SEEN /HPF [facility] Hyaline Cast NONE SEEN NONE SEEN /LPF [employer] Note [employer] Comment: This urine was analyzed for the presence of WBC, RBC, bacteria, casts, and other formed elements. Only those elements seen were reported. 06/06/2023 06/09/2023 5:1 0 AM EST Narrative [facility] - 06/19/2023 3:56 PM EDT FASTING: UNKNOWN Consuelo Hobbs PA-C URINE ORDERABLE S [facility] [address] [place] [address] * (ABNORMAL) Lipid panel with nonHDL (06/06/2023 12:00 AM EST) Cholesterol, Total 206(H) <200 mg/dL [employer] Cholesterol, HDL 57 > OR = 50 mg/dL [employer] Triglycerides 210(H) <150 mg/dL [employer] Comment: If a non-fasting specimen was collected, consider repeat triglyceride testing on a fasting specimen if clinically indicated. Jelly et al. J. of Clin. Lipidol. 2015;9:129-169. LDL Cholesterol 116(H) mg/dL (calc) [employer] Comment: Reference range: <100 Desirable range <100 mg/dL for primary prevention; ?? <70 mg/dL for patients with CHD or diabetic patients with > or = 2 CHD risk factors. LDL-C is now calculated using the Andi-Abram calculation, which is a validated novel method providing better accuracy than the Friedewald equation in the estimation of LDL-C. Andi SS et al. PRIYA. 2013;310(19): 6502-9760 (http://education.51 Auto/faq/HOI455) Cholesterol/HDL Ratio 3.6 <5.0 (calc) [employer] Non HDL Chol. (LDL+VLDL) 149(H) <130 mg/dL (calc) [employer] Comment: For patients with diabetes plus 1 major ASCVD risk factor, treating to a non-HDL-C goal of <100 mg/dL (LDL-C of <70 mg/dL) is considered a therapeutic option. Comment [id number] [facility] [employer] Comment: We received your handwritten test order and performed the AMA defined lipid panel. If this is not what you intended to order, please contact your local client coordinator immediately so that we may adjust our billing appropriately. You may also inquire about alternative or additional testing. 06/06/2023 06/09/2023 5:1 0 AM EST Narrative [facility] - 06/19/2023 3:56 PM EDT FASTING: UNKNOWN Consuelo Hobbs PA-C LAB BLOOD ORDER KARTHIK [facility] [facility] [address] [place] [phone] documented in this encounter Visit Diagnoses Not on filedocumented in this encounter Care Teams Reactor Technician Relationship Specialty Start Date End Date Consuelo Hobbs PA-C 1210 [facility] [address] [place] [address] PCP - General 05/01/19 Madi Sharp MD 85 [facility] [address] [place] [address] Gastroenterology 10/02/19 documented as of this encounter
--- OUTSIDE RECORDS SUMMARY | 2023-10-29 17:44 | XMS_ITS | Encounter Summary ---
Author Organization [facility] Address [address] [place] [address] Care Team Providers Care Hydrometer Tester Name Role Phone Consuelo Hobbs PA-C Primary Care Provider Madi Sharp MD Unavailable [phone] Encounter Details Date Type Department Care Team (Late st Contact Info) Description 06/01/2023 Humberto Anton Department of Internal Medicine [facility] 1210 [facility] [address] [place] [address] Consuelo Hobbs PA-C 1210 [facility] [address] [place] [id number] Hypertension, unspecified type Social History Tobacco Use [...] Description 11/13/2023 7:45 AM EDT Office Visit [facility] Oncology at [address] [phone] Ricci Carter MD [address] [place] [address] 11/13/2023 8:30 AM EDT Infusion [facility] Cancer [place] at [facility] [place] [facility] Outpatient Infusion Center [address] [phone] Ricci Carter MD [address] [place] [phone] Keiko Hallman MD 80 [facility] [place] [address] 11/20/2023 11:00 AM EDT Appointment [facility] Radiology [facility] [address] [place] [address] [phone] Ricci Carter MD [address] [place] [phone] 11/20/2023 11:30 AM EDT Appointment [facility] Radiology [facility] [address] [place] [address] [phone] Ricci Carter MD [address] [place] [phone] 03/05/2024 11:00 AM EST Consult [facility] Cardiology [address] [place] [address] [phone] Ricic Carter MD [address] [place] [phone] Jamil Ralph MD [address] [place] [address] 05/30/2024 9:00 AM EST Office Visit [facility] Department of Internal Medicine [facility] 1210 [facility] 109 [place] [address] Consuelo Hobbs PA-C 1210 [facility] 109 [place], [place] [phone] documented as of this encounter Visit Diagnoses Diagnosis Hypertension, unspecified type documented in this encounter Care Teams Hydrometer Tester Relationship Specialty Start Date End Date Consuelo Hobbs PA-C [address] [place] [address] PCP - General 05/01/19 Madi Sharp MD 85 [facility] [address] [place] [address] Gastroenterology 10/02/19 documented as of this encounter
--- OUTSIDE RECORDS SUMMARY | 2023-10-29 17:44 | XMS_ITS | Encounter Summary ---
Author Organization [facility] Address [address] [place] [address] Care Team Providers Care Senior Hadoop Developer Name Role Phone Consuelo oHbbs PA-C Primary Care Provider Madi Sharp MD Unavailable [phone] Encounter Details Date Type Department Care Team (Late st Contact Info) Description 06/06/2023 Orders Only [facility] Medical Oncology at [address] [phone] Lilli Peguero, YASEMIN [address] [place] [address] Social History Tobacco Use Types Packs/Day Years [...] AM EDT Office Visit [facility] [place] [facility] Oncology at [address] [phone] Ricci Carter MD [address] [place], [place] [phone] 11/13/2023 8:30 AM EDT Infusion [facility] [place] at [facility] Outpatient Infusion Center [address] [phone] Ricci Carter MD [address] [place] [phone] Keiko Hallman MD 80 [facility] [place] [address] 11/20/2023 11:00 AM EDT Appointment [facility] Radiology [facility] [address] [place] [address] [phone] Ricci Carter MD [address] [place], [place] [phone] 11/20/2023 11:30 AM EDT Appointment [facility] Radiology [facility] [address] [place] [address] [phone] Ricci Carter MD [address] [place] [phone] 03/05/2024 11:00 AM EST Consult [facility] Cardiology [address] [place] [address] Ricci Carter MD [address] [place] [place], [place] [phone] Jamil Ralph MD [address] [place] [address] 05/30/2024 9:00 AM EST Office Visit [facility] Department of Internal Medicine [facility] 1210 [facility] [address] [place] [address] Consuelo Hobbs PA-C [address] [address] documented as of this encounter Visit Diagnoses Not on filedocumented in this encounter Care Teams Senior Hadoop Developer Relationship Specialty Start Date End Date Consuelo Hobbs PA-C [address] [place] [phone] PCP - General 05/01/19 Madi Sharp MD [address] [place] [address] Gastroenterology 10/02/19 documented as of this encounter
--- OUTSIDE RECORDS SUMMARY | 2023-10-29 17:44 | XMS_ITS | Encounter Summary ---
Author Organization [facility] Address [address] [place] [address] Care Team Providers Care Regional Facilities Specialist Name Role Phone Consuelo Hobbs PA-C Primary Care Provider Madi Sharp MD Unavailable [phone] Reason for Visit * Episode Based Medications (Routine) - Authorized Specialty Diagnoses / Procedures Referred By Contac t Referred To Contact Diagnoses Carcinoid tumor of ileum, unspecified whether malignant (HCC) Keiko Hallman MD 80 [facility] [place] [address] Med On[address] [phone] Referral ID Status Reason Start Date Expiration Date V isits Requested Visits Authorized [id number] Authorized 04/29/2022 11/27/2023 5 2 Encounter Details Date Type Department Care Team (Late st Contact Info) Description 02/21/2023 8:30 AM EST Infusion [facility] [place] at [facility] Outpatient Infusion Center [address] [phone] Ricci Carter MD [address] [place] [address] Keiko Hallman MD [address] [place] [address] [place] [address] Jayshree Araiza RN [address] [place] [address] Carcinoid tumor of ileum, unspecified whether malignant [...] 7:45 AM EDT Office Visit [facility] Medical Oncology at [address] [phone] Ricci Carter MD [address] [place] [address] 11/13/2023 8:30 AM EDT Infusion [facility] [place] at [facility] Outpatient Infusion Center [address] [phone] Ricci Carter MD [address] [place] [address] Keiko Hallman MD [address] [place] [address] [place] [address] 11/20/2023 11:00 AM EDT Appointment [facility] Radiology [facility] 35 [place] [phone] Ricci Carter MD [address] [place], [place] [phone] 11/20/2023 11:30 AM EDT Appointment [facility] Radiology [facility] [address] [place] [phone] Ricci Carter MD [address] [place], [place] [phone] 03/05/2024 11:00 AM EST Consult [facility] Cardiology [address] [place] [phone] Ricci Carter MD [address] [place], [place] [phone] Jamil Ralph MD [address] [place] [facility] [address] [place], [place] [phone] 05/30/2024 9:00 AM EST Office Visit [facility] Department of Internal Medicine [facility] 1210 [facility] [address] [place] [address] Consuelo Hobbs PA-C 1210 [facility] [address] [place] [address] documented as of this encounter Visit Diagnoses Diagnosis Carcinoid tumor of ileum, unspecified whether malignant (HCC)- Primary documented in this encounter Administered Medications Inactive Administered Medications - up to 1 most recent administrations Medication Order MAR Action Action Date Dose Rate Site octreotide (SandoSTATIN LAR) IM injection 40 mg 40 mg, Intramuscular, Once, On Mon02/21/23 at 0930, For 1 dose, Administer IM intragluteal (avoid deltoid administration). For intraMUSCULAR use ONLY. Must be administered immediately after mixing. Given 02/21/2023 8:45 AM EST 40 mg Right Gluteal Upper Outer Quadrant documented in this encounter Care Teams Regional Facilities Specialist Relationship Specialty Start Date End Date Consuelo Hobbs PA-C [address] [address] PCP - General 05/01/19 Madi Sharp MD [address] [place] [address] [address] [place] [address] Gastroenterology 10/02/19 documented as of this encounter
--- OUTSIDE RECORDS SUMMARY | 2023-10-29 17:44 | XMS_ITS | Encounter Summary ---
Author Organization [facility] Address [address] [place] [address] Care Team Providers Care Plastics Sheet Finishing Press Operator Name Role Phone Consuelo Hobbs PA-C Primary Care Provider Madi Sharp MD Unavailable [phone] Encounter Details Date Type Department Care Team (Late st Contact Info) Description 02/21/2023 8:15 AM EST Office Visit [facility] [place] Medical Oncology at [address] [phone] Ricci Carter MD [address] [place] [address] Carcinoid tumor of ileum, unspecified whether malignant (HCC) (Primary Dx); Malignant carcinoid tumor of ileum (HCC); Encounter for monitoring octreotide therapy; Normocytic anemia; Iron deficiency anemia secondary to inadequate dietary iron intake; Vitamin D deficiency; Oncology follow-up encounter; Chronic diarrhea Social History Tobacco Use Types Packs/Day Years [...] Sign Reading Time Taken Comments Blood Pressure 143/99 02/21/2023 8:30 AM EST Pulse 86 02/21/2023 8:16 AM EST Temperature 36.4 ??C (97.5 ??F) 02/21/2023 8:16 AM ES T Respiratory Rate 20 02/21/2023 8:16 AM EST Oxygen Saturation 100% 02/21/2023 8:16 AM EST Inhaled Oxygen Concentration - - Weight 74.1 kg (163 lb 6.4 oz) 02/21/2023 8:16 A M EST Height - - Body Mass Index 28.95 11/10/2022 9:51 AM EDT documented in this encounter Progress Notes * Ricci Carter MD - 02/21/2023 8:15 AM EST Images from the original note were not included. Medical Oncology/Hematology Progress Note Healthcare Team: Consuelo Hobbs PA-C Subjective: Date of visit is: 02/21/2023 Rody Sotelo is a 52 y.o. female who presents here today for a follow- up visit regarding carcinoid. ONCOLOGY HISTORY: - December 16, 2019, colonoscopy was normal. Interim History: She is here alone. She started bisglycinate, which she is tolerating. She is taking once daily. She has missed some D3 doses. She reports feeling fatigued. Fatigue is the same. Still with issues feet and legs. Diarrhea improved since starting iron. She denies constipation. - diarrhea once daily - she denies nausea - taking colestipol once daily - takes loperamide, some days none, most she requires per day is 16 mg compared to 32 mg - still taking granisetron 2 mg at bedtime - not required any short acting octreotide She is tolerating LAR without any side effects. She reports no flushing. Her LMP- January 2023 x 2 She denies pain Pain: 0 REVIEW OF SYSTEMS: Review of Systems Constitutional: Positive for fatigue. Negative for appetite change, chills, fever and unexpected weight change. Respiratory: Negative for cough and shortness of breath. Cardiovascular: Negative for leg swelling. Gastrointestinal: Negative for abdominal pain and blood in stool. Endocrine: Positive for hot flashes. Musculoskeletal: Positive for arthralgias and back pain (stable). Neurological: Positive for dizziness and headaches (stable). Negative for light-headedness. Psychiatric/Behavioral: Positive for sleep disturbance. The remainder of the 12- point ROS are within normal limits with the exceptions as noted in the HPI. Medications Outpatient Medications Marked as Taking for the 02/21/23 encounter (Office Visit) with Ricci Carter MD: ??? busPIRone (BUSPAR) 10 MG tablet, Take 1 tablet (10 mg total) by mouth nightly., Disp: , Rfl: ??? calcium carbonate (OS-ANGELICA) 600 MG tablet, Take 1 tablet (600 mg total) by mouth every morning with breakfast., Disp: , Rfl: ??? Cannabis (MARIJUANA) [facility] Prescription Strength, as needed., Disp: , [...] needed for diarrhea., Disp: , Rfl: ??? Multiple Vitamins-Minerals (Multi Complete) Cap, Take 1 capsule by mouth See Admin Instructions., Disp: , Rfl: ??? octreotide (SandoSTATIN) 100 MCG/ML injection, Inject 1 mL (100 mcg total) under the skin 3 times daily (every 8 hours) as needed (diarrhea, flushing)., Disp: 90 mL, Rfl: 11 ??? pancrelipase, Pfu-Jaev-Dkpj, (Creon) [address]885-624517 units Cap DR Particles capsule, Take 1 capsule (36,000 units of lipase total) by mouth 3 (three) times a day with meals. Dose is in units of lipase., Disp: 90 capsule, Rfl: 5 ??? rizatriptan (MAXALT-HACKLER DOLL WIGS) 10 MG disintegrating tablet, DISSOLVE 1 TABLET ON THE TONGUE EVERY DAYAS NEEDED, Disp: 9 tablet, Rfl: 0 ??? vitamin D3 (CHOLECALCIFEROL) 1.25 MG (27476 UT) tablet, Take 1 tablet (50,000 Units total) by mouth once a week., Disp: 8 tablet, Rfl: 0 Objective: Wt Readings from Last 2 Encounters: 02/21/23 74.1 kg (163 lb 6.4 oz) 01/31/23 73.7 kg (162 lb 8 oz) Physical Exam Vitals: 02/21/23 0816 02/21/23 0830 BP: (!) 167/98 (!) 143/99 BP Location: Right arm Right arm Pulse: 86 Resp: 20 Temp: 97.5 ??F (36.4 ??C) TempSrc: Tympanic SpO2: 100% Weight: 74.1 kg (163 lb 6.4 oz) Performance status: ECOG (0) Fully active, able to carry on all predisease performance without restriction Physical Exam Constitutional: General: She is not in acute distress. Appearance: Normal appearance. She is well-developed. She is not ill-appearing, toxic-appearing or diaphoretic. HENT: Head: Normocephalic and atraumatic. Eyes: General: No scleral icterus. Extraocular Movements: [...] Thought content normal. Judgment: Judgment normal. Results: - November 29, 2022 B12 (347), folate 18.7 Chromogranin 247 Vitamin D 23 Lab Results Component Value Date WBC 5.9 11/29/2022 RBC 4.32 11/29/2022 HGB 11.6 (L) 11/29/2022 MCV 87 11/29/2022 PLT 207 11/29/2022 NEUTROABS 2.70 11/29/2022 LYMPHSABS 2.50 11/29/2022 MONOSABS 688 06/28/2022 EOSABS 67 06/28/2022 BASOABS 37 06/28/2022 Lab Results Component Value Date ALT 47 (H) 11/29/2022 AST 41 (H) 11/29/2022 ALKPHOS 67 11/29/2022 BILITOT 0.4 11/29/2022 Lab Results Component Value Date GLUC 95 11/29/2022 CALCIUM 9.2 11/29/2022 NA 137 11/29/2022 K 4.3 11/29/2022 CO2 29 11/29/2022 CL 99 11/29/2022 BUN 11 11/29/2022 CREAT 0.79 11/29/2022 Ferritin Date Value Ref Range Status 11/29/2022 10 (L) 16 - 232 ng/mL Final Iron Date Value Ref Range Status 11/29/2022 44 (L) 45 - 160 mcg/dL Final Total Iron Binding Capacity Date Value Ref Range Status 11/29/2022 523 (H) 250 - 450 mcg/dL (calc) Final Iron Saturation Date Value Ref Range Status 11/29/2022 8 (L) 16 - 45 % (calc) Final Assessment/Plan: 1. Carcinoid, [id number] A. Diagnosed July 11, 2013 1. S/p [...] radiographic findings In summary, Rody is a 52 y.o. female with a PMHx significant for: migraines, PCOS, IBS and PVCs whopresents here today for a follow- up visit regarding carcinoid. (the above information is being carried forward from prior records for informational purposes only and is being cited so that efficiency, safety, and quality of this patients' oncologic/hematologic care is not compromised) Rody is receiving Sandostatin LAR for the treatment of advanced carcinoid. She received her last dose on January 31, 2023. She is without any new or worsening symptoms to suggest progression of her carcinoid. In fact, since taking oral iron, her diarrhea has improved. She is tolerating Sandostatin LAR well, and without any apparent toxicities. Continue every 21 day dosing. Her fatigue remains stable. She is without any nausea or abdominal pain. Her chromogranin a level normalized after she stopped taking pantoprazole. Continue Creon. Continue granisetron 2 mg taken at bedtime. Continue loperamide as needed. 2. Normocytic anemia Secondary to iron deficiency. She started bisglycinate, which she is tolerating well and with improvement in diarrheal stools. She is taking once daily. Repeat iron studies at time of next Sandostatin injection. 3. Vitamin D deficiency She has missed some doses of vitamin D3, at a dose of 50,000 units once weekly. I encouraged compliance with therapy and continue weekly dosing. I renewed his prescription. 4. Elevated AST and ALT Etiology not clear, but likely alcohol related. Will monitor. Repeat LFTs at time of next Sandostatin injection. She is tobacco free. Immunizations: She received her 1st shingles vaccine. She received her 2nd dose next week. Received influenza immunization 2022 ORDERS 1. Carcinoid tumor of ileum, unspecified whether malignant - Complete Blood Count, with Differential - BASIC METABOLIC PANEL - HEPATIC FUNCTION PANEL 2. Iron deficiency anemia secondary to inadequate dietary iron intake - Iron, TIBC, and Ferritin Panel - [facility] 3. Vitamin D deficiency - vitamin D3 (CHOLECALCIFEROL) 1.25 MG (33017 UT) tablet; Take 1 tablet (50,000 Units total) by mouth once a week. Dispense: 24 tablet; Refill: 1 - Vitamin D, 25-Hydroxy - [facility] Number and complexity of problems addressed- moderate Amount and/or complexity of data to be reviewed and analyzed- limiited Risk of complications and/or morbidity or mortality of patient management- high No orders of the defined types were placed in this encounter. The patient will return in 12 weeks. There are no Patient Instructions on file for this visit. documented in this encounter Miscellaneous Notes * Addendum Note - Mickey Mcgee MA - 02/21/2023 9:02 AM ESTAddended by: MICKEY MCGEE on: 02/21/2023 09:02 AM Modules accepted: Orders documented in this encounter Plan of Treatment Upcoming Encounters Date Type Department Care Team (Late st Contact Info) Description 11/13/2023 7:45 AM EDT Office Visit [facility] [place] [facility] at [address] [phone] Ricci Carter MD [address] [place] [address] 11/13/2023 8:30 AM EDT Infusion [facility] [place] [facility] Outpatient Infusion Center [address] [phone] Ricci Carter MD [address] [place], [place] [phone] Keiko Hallman MD 80 [facility] [place] [address] 11/20/2023 11:00 AM EDT Appointment [facility] [address] [place] [phone] Ricci Carter MD [address] [place] [address] 11/20/2023 11:30 AM EDT Appointment [facility] [address] [place] [phone] Ricci Carter MD [address] [place], [place] [phone] 03/05/2024 11:00 AM EST Consult [facility] Cardiology [address] [place] [phone] Ricci Carter MD [address] [place], [place] [phone] Jamil Ralph MD [address] [employer] [facility] [address] [place] [address] 05/30/2024 9:00 AM EST Office Visit [facility] Department of Internal Medicine Formerly Named [facility] [address] [facility] [address] [place] [address] Consuelo Hobbs PA-C 1210 [facility] [address] [place] [address] Scheduled Orders Name Type Priority Associated Diagnoses Orde r Schedule Complete Blood Count, with Differential Lab Routine Carcinoid tumor of ileum, unspecified whether malignant (HCC) Ordered: 02/21/2023 BASIC METABOLIC PANEL Lab Routine Carcinoid tumor of ileum, unspecified whether malignant (HCC) Ordered: 02/21/2023 HEPATIC FUNCTION PANEL Lab Routine Carcinoid tumor of ileum, unspecified whether malignant (HCC) Ordered: 02/21/2023 Vitamin D, 25-Hydroxy - [facility] Lab Routine Vitamin D deficiency Ordered: 02/21/2023 Iron, TIBC, and Ferritin Panel - [facility] Lab Routine Iron deficiency anemia secondary to inadequate dietary iron intake Ordered: 02/21/2023 documented as of this encounter Visit Diagnoses Diagnosis Carcinoid tumor of ileum, 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
--- OUTSIDE RECORDS SUMMARY | 2023-10-29 17:44 | XMS_ITS | Encounter Summary ---
Author Organization [facility] Address [address] [place] [address] Care Team Providers Care Battery Technician Name Role Phone Consuelo Hobbs PA-C Primary Care Provider Madi Sharp MD Unavailable [phone] Reason for Visit * Reason Comments Medication Refill Encounter Details Date Type Department Care Team (Late Contact Info) Description 06/26/2023 Refill [facility] Department of Internal Medicine & Nephrology [place] 85 [facility] [address] [place] [phone] Consuelo Hobbs PA-C 1210 [facility] 109 [place], [place] [phone] Migraine with status migrainosus, not intractable, unspecified [...] 11/13/2023 7:45 AM EDT Office Visit [facility] Medical Oncology at [address] [phone] Ricci Carter MD [address] [place], [place] [phone] 11/13/2023 8:30 AM EDT Infusion [facility] [place] at [facility] Outpatient Infusion Center [address] [phone] Ricci Carter MD [address] [place], [place] [phone] Keiko Hallman MD 80 [facility] [place] [address] 11/20/2023 11:00 AM EDT Appointment [facility] Radiology [facility] [address] [place] [phone] Ricci Carter MD [address] [place], [place] [phone] 11/20/2023 11:30 AM EDT Appointment [facility] Rad[facility] [address] [place] [phone] Ricci Carter MD [address] [place], [place] [phone] 03/05/2024 11:00 AM EST Consult [facility] Cardiology [address] [place] [address] [phone] Ricci Carter MD [address] [place], [place] [phone] Jamil Ralph MD [address] [place] [phone] 05/30/2024 9:00 AM EST Office Visit [facility] Department of Internal Medicine [facility] 1210 [facility] 109 [place] [address] Consuelo Hobbs PA-C 1210 [facility] [address] [place] [address] documented as of this encounter Visit Diagnoses Diagnosis Migraine with status migrainosus, not intractable, unspecified migraine type documented in this encounter Care Teams Battery Technician Relationship Specialty Start Date End Date Consuelo Hobbs PA-C [address] [place] [address] PCP - General 05/01/19 Madi Sharp MD [address] [place] [address] Gastroenterology 10/02/19 documented as of this encounter
--- OUTSIDE RECORDS SUMMARY | 2023-10-29 17:44 | XMS_ITS | Encounter Summary ---
Author Organization [facility] Address [address] [place] [address] Care Team Providers Care Reports Analyst Name Role Phone Consuelo Hobbs PA-C Primary Care Provider Madi Sharp MD Unavailable [phone] Encounter Details Date Type Department Care Team (Latest Contact Info) Description 03/21/2023 Travel Social History Tobacco Use Types Packs/Day [...] Description 11/13/2023 7:45 AM EDT Office Visit [facility] Medical Oncology at [address] [phone] Ricci Carter MD [address] [place] [address] 11/13/2023 8:30 AM EDT Infusion [facility] Cancer [place] at [facility] Outpatient Infusion [facility] [place] [address] [place] [phone] Ricci Carter MD [address] [place], [place] [phone] Keiko Hallman MD 80 [facility] [place] [address] 11/20/2023 11:00 AM EDT Appointment [facility] Radiology [facility] [address] [place] [phone] Ricci Carter MD [address] [place], [place] [phone] 11/20/2023 11:30 AM EDT Appointment [facility]iology [facility] [address] [place] [phone] Ricci Carter MD [address] [place], [place] [phone] 03/05/2024 11:00 AM EST Consult [facility] Cardiology [address] [place] [phone] Ricci Carter MD [address] [place], [place] [phone] Jamil Ralph MD [address] [facility] [address] [place], [place] [phone] 05/30/2024 9:00 AM EST Office Visit [facility] Department of Internal Medicine [address] [place] [address] Consuelo Hobbs PA-C [address] [address] documented as of this encounter Visit Diagnoses Not on filedocumented in this encounter Care Teams Reports Analyst Relationship Specialty Start Date End Date Consuelo Hobbs PA-C [address] [phone] PCP - General 05/01/19 Madi Sharp MD [address] [place] [address] Gastroenterology 10/02/19 documented as of this encounter
--- OUTSIDE RECORDS SUMMARY | 2023-10-29 17:44 | XMS_ITS | Encounter Summary ---
Author Organization [facility] Address [address] [place] [address] Care Team Providers Care On Line Csr Name Role Phone Consuelo Hobbs PA-C Primary Care Provider Madi Sharp MD Unavailable [phone] Reason for Visit * Reason Comments Medication Refill Encounter Details Date Type Department Care Team (Late Contact Info) Description 06/26/2023 Refill [facility] Department of Internal Medicine & Nephrology [place] 85 [facility] [address] [place] [phone] Consuelo Hobbs PA-C 1210 [facility] 109 [place], [place] [phone] Migraine with status migrainosus, not intractable, unspecified [...] 11/13/2023 7:45 AM EDT Office Visit [facility] Medical Oncology at [address] [phone] Ricci Carter MD [address] [place], [place] [phone] 11/13/2023 8:30 AM EDT Infusion [facility] Cancer [place] at [facility] Outpatient Infusion Center [address] [phone] Ricci Carter MD [address] [place], [place] [phone] Keiko Hallman MD 80 [facility] [place] [address] 11/20/2023 11:[address] [facility] Radiology [facility] [address] [place] [phone] Ricci Carter MD [address] [place], [place] [phone] 11/20/2023 11:[address] [facility] Radiology [facility] [address] [place] [phone] Ricci Carter MD [address] [place], [place] [phone] 03/05/2024 11:00 AM EST Consult [facility] Cardiology [address] [place] [address] [phone] Ricci Carter MD [address] [place], [place] [phone] Jamil Ralph MD [address] [place] [phone] 05/30/2024 9:00 AM EST Office Visit [facility] Department of Internal Medicine [facility] 1210 [facility] 109 [place] [address] Consuelo Hobbs PA-C 1210 [facility] [address] [place] [address] documented as of this encounter Visit Diagnoses Diagnosis Migraine with status migrainosus, not intractable, unspecified migraine type documented in this encounter Care Teams On Line Csr Relationship Specialty Start Date End Date Consuelo Hobbs PA-C [address] [place] [address] PCP - General 05/01/19 Madi Sharp MD [address] [place] [address] Gastroenterology 10/02/19 documented as of this encounter
--- OUTSIDE RECORDS SUMMARY | 2023-10-29 17:44 | XMS_ITS | Encounter Summary ---
Author Organization [facility] Address [address] [place] [address] Care Team Providers Care Pharmacy Teacher Name Role Phone Consuelo Hobbs PA-C Primary Care Provider Madi Sharp MD Unavailable [phone] Encounter Details Date Type Department Care Team (Late st Contact Info) Description 07/14/2023 Scanned Document [facility] [address] [facility] [place] [address] [place] [phone] Madi Sharp MD [address] [place] [address] Social History Tobacco Use Types Packs/Day Years [...] 11/13/2023 7:45 AM EDT Office Visit [facility] [place] Medical Oncology at [address] [phone] Ricci Carter MD [address] [place] [address] 11/13/2023 8:30 AM EDT Infusion [facility] [place] at [facility] Outpatient Infusion Center [address] [phone] Ricci Carter MD [address] [place], [place] [phone] Keiko Hallman MD 80 [facility] [place] [address] 11/20/2023 11:00 AM EDT Appointment [facility] Radiology [facility] [address] [place] [phone] Ricci Carter MD [address] [place], [place] [phone] 11/20/2023 11:30 AM EDT Appointment [facility] Radiology [facility] [address] [place] [phone] Ricci Carter MD [address] [place] [place] [phone] 03/05/2024 11:[address] [facility] Cardiology [address] [place] [phone] Ricci Carter MD [address] [place] [address] Jamil Ralph MD [address] [facility] [address] [place] [address] 05/30/2024 9:00 AM EST Office Visit [facility] Department of Internal Medicine [facility] 1210 [facility] 109 [place] [address] Consuelo Hobbs PA-C [address] [place] [address] documented as of this encounter Visit Diagnoses Not on filedocumented in this encounter Care Teams Pharmacy Teacher Relationship Specialty Start Date End Date Consuelo Hobbs PA-C [address] [place] [phone] PCP - General 05/01/19 Madi Sharp MD [address] [place] [address] Gastroenterology 10/02/19 documented as of this encounter
--- OUTSIDE RECORDS SUMMARY | 2023-10-29 17:44 | XMS_ITS | Encounter Summary ---
Author Organization [facility]ly [facility] Address [address] [place] [address] Care Team Providers Care Interventionist Name Role Phone Consuelo Hobbs PA-C Primary Care Provider Madi Sharp MD Unavailable [phone] Reason for Visit * Reason Comments Injections * Episode Based Medications (Routine) - Authorized Specialty Diagnoses / Procedures Referred By Contbalbir t Referred To Contact Diagnoses Carcinoid tumor of ileum, unspecified whether malignant (HCC) Keiko Hallman MD [address] [facility] [place] [address] Med On[address] Ci [address] [address] Referral ID Status Reason Start Date Expiration Date V isits Requested Visits Authorized [id number] Authorized 04/29/2022 11/27/2023 5 2 Encounter Details Date Type Department Care Team (Late st Contact Info) Description 06/27/2023 8:30 AM EDT Infusion [facility] Cancer [place] at [facility] Outpatient Infusion Center [address] [phone] Ricci Carter MD [address] [place] [address] Keiko Hallman MD 80 [facility] [place] [address] Melvi Lin RN [address] [place] [phone] Carcinoid tumor of ileum, unspecified whether malignant [...] Sign Reading Time Taken Comments Blood Pressure 127/72 06/27/2023 8:34 AM EDT Pulse 76 06/27/2023 8:34 AM EDT Temperature 36.3 ??C (97.3 ??F) 06/27/2023 8:34 AM ED T Respiratory Rate 16 06/27/2023 8:34 AM EDT Oxygen Saturation 98% 06/27/2023 8:34 AM EDT Inhaled Oxygen Concentration - - Weight 77.4 kg (170 lb 11.2 oz) 06/27/2023 8:34 AM EDT Height 160 cm (5' 2.99) 06/27/2023 8:34 AM EDT Body Mass Index 30.25 06/27/2023 8:34 AM EDT documented in this encounter Plan of Treatment Upcoming Encounters Date Type Department Care Team (Late st Contact Info) Description 11/13/2023 7:45 AM EDT Office Visit [facility] Cancer [place] Medical Oncology at [address] [phone] Ricci Carter MD [address] [place] [address] 11/13/2023 8:30 AM EDT Infusion [facility] Cancer [place] [facility] Outpatient Infusion Center [address] [phone] Ricci Carter MD [address] [place], [place] [phone] Keiko Hallman MD 80 [facility] [place] [address] 11/20/2023 11:00 AM EDT Appointment [facility] Radiology [facility] [address] [place] [phone] Ricci Carter MD [address] [place] [address] 11/20/2023 11:30 AM EDT Appointment [facility] Radiology [facility] [address] [place] [phone] Ricci Carter MD [address] [place], [place] [phone] 03/05/2024 11:00 AM EST Consult [facility] Cardiology [address] [place] [phone] Ricci Carter MD [address] [place], [place] [phone] Jamil Ralph MD [address] [facility] [address] [place] [address] 05/30/2024 9:00 AM EST Office Visit [facility] 1210 [facility] [address] [place] [address] Consuelo Hobbs PA-C [address] [phone] documented as of this encounter Visit Diagnoses Diagnosis Carcinoid tumor of ileum, unspecified whether malignant (HCC)- Primary documented in this encounter Administered Medications Inactive Administered Medications - up to 1 most recent administrations Medication Order MAR Action Action Date Dose Rate Site octreotide (SandoSTATIN LAR) IM injection 40 mg 40 mg, Intramuscular, Once, On Mon06/27/23 at 0930, For 1 dose, Administer IM intragluteal (avoid deltoid administration). For intraMUSCULAR use ONLY. Must be administered immediately after mixing. Given 06/27/2023 8:42 AM EDT 40 mg Left Gluteal Upper Outer Quadrant documented in this encounter Care Teams Interventionist Relationship Specialty Start Date End Date Consuelo Hobbs PA-C [address] [place] [phone] PCP - General 05/01/19 Madi Sharp MD [address] [place] [address] Gastroenterology 10/02/19 documented as of this encounter
--- OUTSIDE RECORDS SUMMARY | 2023-10-29 17:44 | XMS_ITS | Encounter Summary ---
Author Organization [facility] Address [address] [place] [address] Care Team Providers Care In Processing Instructor Name Role Phone Consuelo Hobbs PA-C Primary Care Provider Madi Sharp MD Unavailable [phone] Encounter Details Date Type Department Care Team (Late st Contact Info) Description 06/02/2023 Scanned Document [facility] Medical Oncology at [address] [phone] Provider, Dodie, [address] [place] [phone] Social History Tobacco Use Types Packs/Day Years [...] Description 11/13/2023 7:45 AM EDT Office Visit [facility] Medical Oncology at [place] [phone] Ricci Carter MD [address] [place] [phone] 11/13/2023 8:30 AM EDT Infusion [facility] Cancer [place] at [facility] Outpatient Infusion Center [address] [phone] Ricci Carter MD [address] [employer] [address] [place] [phone] Keiko Hallman MD 80 [facility] [place] [address] 11/20/2023 11:00 AM EDT Appointment [facility] Radiology [facility] 35 [place] [phone] Ricci Carter MD [address] [employer] [address] [place], [place] [phone] 11/20/2023 11:30 AM EDT Appointment [facility] Radiology [facility] 35 [place] [phone] Ricci Carter MD [address] [place], [place] [phone] 03/05/2024 11:00 AM EST Consult [facility] [place] [address] [facility] [address] [place] [phone] Ricci Carter MD [address] [place] [address] Jamil Ralph MD [address] [facility] [address] [place], [place] [phone] 05/30/2024 9:00 AM EST Office Visit [facility] Department of Internal Medicine [facility] [address] [place] [address] Consuelo Hobbs PA-C [address] [phone] documented as of this encounter Visit Diagnoses Not on filedocumented in this encounter Care Teams In Processing Instructor Relationship Specialty Start Date End Date Consuelo Hobbs PA-C [address] [place] [phone] PCP - General 05/01/19 Madi Sharp MD [address] [place] [address] Gastroenterology 10/02/19 documented as of this encounter
--- OUTSIDE RECORDS SUMMARY | 2023-10-29 17:44 | XMS_ITS | Encounter Summary ---
Author Organization [facility] Address [address] [place] [address] Care Team Providers Care Supervisor Paper Testing Name Role Phone Consuelo Hobbs PA-C Primary Care Provider Madi Sharp MD Unavailable [phone] Reason for Visit * Reason Comments Injections * Episode Based Medications (Routine) - Authorized Specialty Diagnoses / Procedures Referred By Contbalbir t Referred To Contact Diagnoses Carcinoid tumor of ileum, unspecified whether malignant (HCC) Keiko Hallman MD 80 [facility] [place] [address] Med Onc Ci [address] [address] Referral ID Status Reason Start Date Expiration Date V isits Requested Visits Authorized [id number] Authorized 04/29/2022 11/27/2023 5 2 Encounter Details Date Type Department Care Team (Late st Contact Info) Description 01/31/2023 8:30 AM EDT Infusion [facility] Cancer [place] at [facility] Outpatient Infusion Center [address] [phone] Ricci Carter MD [address] [place] [address] Keiko Hallman MD 80 [facility] [place] [address] Jayshree Araiza RN [address] [place] [address] Carcinoid tumor of ileum, unspecified whether malignant [...] Sign Reading Time Taken Comments Blood Pressure 137/86 01/31/2023 8:41 AM EDT Pulse 85 01/31/2023 8:41 AM EDT Temperature 36.1 ??C (96.9 ??F) 01/31/2023 8:41 AM ED T Respiratory Rate 16 01/31/2023 8:41 AM EDT Oxygen Saturation 98% 01/31/2023 8:41 AM EDT Inhaled Oxygen Concentration - - Weight 73.7 kg (162 lb 8 oz) 01/31/2023 8:41 AM EDT Height - - Body Mass Index 28.79 11/10/2022 9:51 AM EDT documented in this encounter Plan of Treatment Upcoming Encounters Date Type Department Care Team (Late st Contact Info) Description 11/13/2023 7:45 AM EDT Office Visit [facility] Cancer [place] Medical Oncology at [address] [phone] Ricci Carter MD [address] [place] [address] 11/13/2023 8:30 AM EDT Infusion [facility] Cancer [place] at [facility] Outpatient Infusion Center [address] [phone] Ricci Carter MD [address] [place], [place] [phone] Keiko Hallman MD 80 [facility] [place] [address] 11/20/2023 11:00 AM EDT Appointment [facility] Radiology [facility] [address] [place] [phone] Ricci Crater MD [address] [place], [place] [phone] 11/20/2023 11:30 AM EDT Appointment [facility] Radiology [facility] [address] [place] [address] [phone] Ricci Carter MD [address] [place], [place] [phone] 03/05/2024 11:00 AM EST Consult [facility] Cardiology [address] [place] [phone] Ricci Carter MD [address] [place], [place] [phone] Jamil Ralph MD [address] [place] [facility] [address] [place], [place] [phone] 05/30/2024 9:00 AM EST Office Visit [facility] Department of Internal Medicine [address] [place] [address] Consuelo Hobbs PA-C [address] [phone] documented as of this encounter Visit Diagnoses Diagnosis Carcinoid tumor of ileum, unspecified whether malignant (HCC)- Primary documented in this encounter Administered Medications Inactive Administered Medications - up to 1 most recent administrations Medication Order MAR Action Action Date Dose Rate Site octreotide (SandoSTATIN LAR) IM injection 40 mg 40 mg, Intramuscular, Once, On Mon01/31/23 at 0930, For 1 dose, Administer IM intragluteal (avoid deltoid administration). For intraMUSCULAR use ONLY. Must be administered immediately after mixing. Given 01/31/2023 8:47 AM EDT 40 mg Other (See Comments) documented in this encounter Care Teams Supervisor Paper Testing Relationship Specialty Start Date End Date Consuelo Hobbs PA-C [address] [phone] PCP - General 05/01/19 Madi Sharp MD [address] [place] [address] Gastroenterology 10/02/19 documented as of this encounter
--- OUTSIDE RECORDS SUMMARY | 2023-10-29 17:44 | XMS_ITS | Encounter Summary ---
Author Organization [facility] Address [address] [place] [address] Care Team Providers Care Animation Producer Name Role Phone Consuelo Hobbs PA-C Primary Care Provider Madi Sharp MD Unavailable [phone] Reason for Visit * Reason Comments Medication Refill Encounter Details Date Type Department Care Team (Late Contact Info) Description 03/06/2023 Refill [facility] Department of Internal Medicine & Nephrology [place] 85 [facility] [address] [place] [phone] Consuelo Hobbs PA-C 1210 [facility] 109 [place], [place] [phone] Migraine with status migrainosus, not intractable, unspecified [...] [facility] Medical Oncology at [address] [phone] Ricci Carter MD [address], [place] [phone] 11/13/2023 8:30 AM EDT Infusion [facility] Cancer [place] at [facility] Outpatient Infusion Center [address] [phone] Ricci Carter MD [address], [place] [phone] Keiko Hallman MD 80 [facility] [place] [address] 11/20/2023 11:00 AM EDT Appointment [facility] Radiology [facility] M[facility]ography [address] [place] [phone] Ricci Carter MD [address], [place] [phone] 11/20/2023 11:30 AM EDT Appointment [facility] Radiology [facility] M[facility] 35 [place] [phone] Ricci Carter MD [address], [place] [phone] 03/05/2024 11:00 AM EST Consult [facility] Cardiology [address] [place] [phone] Ricci Carter MD [address], [place] [phone] Jamil Ralph MD [address] [place] [address] 05/30/2024 9:00 AM EST Office Visit [facility] Department of Internal Medicine [facility] 1210 [facility] 109 [place] [address] Consuelo Hobbs PA-C 1210 [facility] [address] [place] [address] documented as of this encounter Visit Diagnoses Diagnosis Migraine with status migrainosus, not intractable, unspecified migraine type documented in this encounter Care Teams Animation Producer Relationship Specialty Start Date End Date Consuelo Hobbs PA-C [address] [place] [address] PCP - General 05/01/19 Madi Sharp MD [address] [address] Gastroenterology 10/02/19 documented as of this encounter
--- OUTSIDE RECORDS SUMMARY | 2023-10-29 17:44 | XMS_ITS | Encounter Summary ---
Author Organization [facility] Address [address] [place] [address] Care Team Providers Care Barrel Rib Matting Machine Operator Name Role Phone Consuelo Hobbs PA-C Primary Care Provider Madi Sharp MD Unavailable [phone] Encounter Details Date Type Department Care Team (Latest Contact Info) Description 01/10/2023 Travel Social History Tobacco Use Types Packs/Day [...] Description 11/13/2023 7:45 AM EDT Office Visit [facility] Medical Oncology at [address] [phone] Ricci Carter MD [address] [place] [address] 11/13/2023 8:30 AM EDT Infusion [facility] Cancer [place] at [facility] Outpatient [facility]fusion [facility] [place] [address] [place] [phone] Ricci Carter MD [address] [place], [place] [phone] Keiko Hallman MD 80 [facility] [place] [address] 11/20/2023 11:00 AM EDT Appointment [facility] Radiology [facility] Mamm[facility] [address] [place] [phone] Ricci Carter MD [address] [place], [place] [phone] 11/20/2023 11:30 AM EDT Appointment [facility] Radiology [facility] M[facility] 35 [place] [phone] Ricci Carter MD [address] [place], [place] [phone] 03/05/2024 11:[address] [facility] Cardiology [address] [place] [phone] Ricci Carter MD [address] [place], [place] [phone] Jamil Ralph MD [address] [facility] [address] [place], [place] [phone] 05/30/2024 9:00 AM EST Office Visit [facility] Department of Internal Medicine [address] [place] [address] Consuelo Hobbs PA-C [address] [address] documented as of this encounter Visit Diagnoses Not on filedocumented in this encounter Care Teams Barrel Rib Matting Machine Operator Relationship Specialty Start Date End Date Consuelo Hobbs PA-C [address] [phone] PCP - General 05/01/19 Madi Sharp MD [address] [place] [address] Gastroenterology 10/02/19 documented as of this encounter
--- NOTE | 2023-10-29 17:45 | DI.CT_ITS ---
Exam(s) CT ABDOMEN PELVIS CTA EXAM: CT ABDOMEN PELVIS CTA CLINICAL HISTORY: gib. TECHNIQUE: Imaging Protocol: Axial CT angiography was performed with multi-slice acquisition and m ulti-planar and/or 3D reconstructions. CONTRAST MATERIAL: Intravenous: Omnipaque 350 Contrast volume:structured data in ml Oral: yes / no COMPARISON: No exams were available for comparison FINDINGS: Vascular Structures: Celiac [place]:No evidence of stenosis. SMA: No evidence of stenosis. Renal Arteries: No evidence of stenosis. There is a single renal artery perfusing each kidney. Aorta: No aneurysm. No dissection. No significant stenosis. Minimal atherosclerotic changes. Iliac Arteries: No evidence of stenosis. Common Femoral Arteries: No evidence of stenosis. Portal vein and mesenteric veins are unremarkable. Soft Tissues:Injection granulomas in the buttocks bilaterally. Lung bases:No acute findings. Liver: Normal size. Severe hepatic steatosis. No measurable mass. Gallbladder and biliary tract: Status post cholecystectomy. No biliary dilation. Pancreas: Mild fatty replacement. No abnormal calcifications or inflammatory process. Spleen: Normal. Kidneys: Normal size, contour and axis. No obstructive uropathy. No masses seen. No evidence of calcu li. Adrenal glands: No masses seen. Bladder: No gross wall thickening. No evidence of calculi. No evidence of mass. Bowel: No obstruction or bowel wall thickening. Partial right colectomy. Ileocolic anastomosis is unremarkable. High-density material noted within mid small bowel loops on pre contrast images, consi stent with ingested material. Some fecalization of distal small bowel loops could indicate slow velásquez sit. No evidence of contrast extravasation into the bowel lumen. Peritoneal cavity: No ascites. No focal collection. No mesenteric inflammatory response. Bones: No acute findings. Lymph nodes: Within normal limits. Reproductive: Unremarkable. IMPRESSION: No evidence of GI bleed. Prior right hemicolectomy. No evidence of bowel obstruction. RADIATION DOSE DELIVERED: Total DLP DATA REPOSITORY: All CT scans at this facility are submitted to the National Radiology Data Registry (NRDR) Dose Index Registry (DIR) with the [employer] (ACR). RADIATION OPTIMIZATION: All CT scans at this facility use at least one of these dose optimization te chniques: automated exposure control; mA and/or kV adjustment per patient size (includes targeted exa ms where dose is matched to clinical indication); or iterative reconstruction.
--- OUTSIDE RECORDS SUMMARY | 2023-10-29 17:45 | XMS_ITS | Encounter Summary ---
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] Procedures COLONOSCOPY Referral ID Status Reason Start Date Expiration Date Visits Re quested Visits Authorized [id number] 1 1 Encounter Details Date Type Department Care Team (Latest Contact Info) Description 11/25/2022 12:55 PM EDT - 11/25/2022 11:59 PM EDT Hospital Encounter [facility] [address] [place] [phone] Madi Sharp MD [address] [place], [place] [id number] Discharge Disposition: Home or Self Care Social History Tobacco Use Types Packs/Day Years [...] Orientation Heterosexual (straight) 11/09 1:27 PM EDT COVID-19 Exposure Response Date Recorded In the last 10 days, have yo u been in contact with someone who was confirmed or suspected to have Coronavirus/COVID-19? No / Unsure 09/27/2022 8:41 AM EDT documented as of this encounter Last Filed Vital Signs Vital Sign Reading Time Taken Comments Blood Pressure 138/90 11/25/2022 2:25 PM EDT Pulse 77 11/25/2022 2:25 PM EDT Temperature 36.4 ??C (97.6 ??F) 11/25/2022 2:08 PM ED T Respiratory Rate 16 11/25/2022 2:25 PM EDT Oxygen Saturation 98% 11/25/2022 2:25 PM EDT Inhaled Oxygen Concentration - - Weight - - Height - - Body Mass Index - - documented in this encounter Medications at Time of Discharge Medication Sig Dispensed Refills Start Date End Date busPIRone (BUSPAR) 10 MG tablet Take 1 tablet (10 mg total) by mouth nightly. 0 12/17/2021 calcium carbonate (OS-ANGELICA) 600 MG tablet Take 1 tablet (600 mg total) by mouth every morning with breakfast. 0 Cannabis (MARIJUANA) [facility] Prescription Strength as needed. 0 famotidine (PEPCID) 40 MG tablet Take 1 tablet (40 mg total) by mouth daily. 0 loperamide (IMODIUM A-D) 2 MG capsule Take 1 capsule (2 mg total) by mouth 4 (four) times a day as needed for diarrhea. 0 Multiple Vitamins-Minerals (Multi Complete) Cap Take 1 capsule by mouth See Admin Instructions. 0 05/17/2019 colestipol (COLESTID) 1 g tabletIndications:Diarrhe a, unspecified type,Carcinoid tumor of ileum (HCC) Take 2 tablets (2 g total) by mouth 2 (two) times a day. With a large glass of water. 120 tablet 5 08/15/2022 02/17/2023 ergotamine-caffeine (CAFERGOT) 1-100 MG per tabletIndications:Migrain e with status migrainosus, not intractable, unspecified migraine type Take two tablets at onset of attack; then 1 tablet every 30 minutes as needed; maximum: 6 tablets per attack; do not exceed 10 tablets/week 6 tablet 0 10/06/2022 12/14/2022 granisetron (KYTRIL) 1 MG tabletIndications:Carcino id tumor of ileum (HCC) Take 2 tablets (2 mg total) by mouth daily. 60 tablet 5 10/05/2022 06/28/2023 morphine (ROXANOL) 10 mg/5 mL solution Take 2.5 mL (5 mg total) by mouth 4 (four) times a day as needed for diarrhea. 2.5-5ML q6hrs prn 0 08/16/2019 01/31/2023 octreotide (SandoSTATIN) 100 MCG/ML injectionIndications:Carc inoid tumor of ileum (HCC) Inject 1 mL (100 mcg total) under the skin 3 times daily (every 8 hours) as needed (diarrhea, flushing). 90 mL 11 11/25/2019 10/02/2023 omega-3 fatty acids (FISH OIL) 1000 MG Cap capsule Take 1 capsule (1,000 mg total) by mouth daily. 0 05/17/2019 01/31/2023 OMEprazole (PriLOSEC) 20 MG capsule Take 1 capsule (20 mg total) by mouth every morning before breakfast. 0 05/30/2023 pancrelipase, Vce-Ylbp-Aqvn, (Creon) [id number] units Cap DR Particles capsuleIndications:Carcin oid tumor of ileum, unspecified whether malignant (HCC),Diarrhea, unspecified type Take 1 capsule (36,000 units of lipase total) by mouth 3 (three) times a day with meals. Dose is in units of lipase. 90 capsule 5 12/14/2021 12/20/2022 rizatriptan (MAXALT-ROTARY DRIER) 10 MG disintegrating tabletIndications:Migrain e with status migrainosus, not intractable, unspecified migraine type Take 1 tablet (10 mg total) by mouth once as needed for migraine. 9 tablet 0 10/06/2022 12/14/2022 vitamin D3 (CHOLECALCIFEROL) 1.25 MG (62469 UT) tabletIndications:Vitamin D deficiency Take 1 tablet (50,000 Units total) by mouth once a week. 8 tablet 0 03/17/2022 12/14/2022 documented as of this encounter H&P Notes * Madi Sharp MD - 11/25/2022 12:55 PM EDT PREOPERATIVE H&P PROCEDURE: colonoscopy CHIEF COMPLAINT: CRC screening, hx rectal carcinoid HPI: Patient is a 52 y.o. year old female with CRC screening, hx rectal carcinoid Past Medical History: Diagnosis Date ??? Abdominal pain 04/13/2020 ??? Abdominal wall pain in right flank 08/19/2015 ??? Cancer (HCC) ??? Carcinoid tumor of gastrointestinal tract ??? IBS (irritable bowel syndrome) ??? Migraine 11/25/2019 ??? Migraines ??? PCOS (polycystic ovarian syndrome) 11/25/2019 ??? PVC (premature ventricular contraction) 11/25/2019 Family History Problem Relation Age of Onset ??? Heart disease Father ??? Hypertension Father ??? Alcohol abuse Father ??? Mental illness Father ??? Heart attack Father ??? Hypertension Mother ??? Irritable bowel syndrome Mother ??? Mental illness Mother ??? Hypertension Brother ??? Mental illness Maternal Aunt ??? Tuberculosis Maternal Grandfather Social History Socioeconomic History ??? Marital status: Spouse name: Not on file ??? Number of children: Not on file ??? Years of education: Not on file ??? Highest education level: Not on file Occupational History ??? Not on file Tobacco Use ??? Smoking status: Former Packs/day: 0.25 Years: 22.00 Pack years: 5.50 Types: Cigarettes Quit date: 05/17/2021 Years since quittin.5 ??? Smokeless tobacco: Never Vaping Use ??? Vaping Use: Never used Substance and Sexual Activity ??? Alcohol use: Yes ??? Drug use: Yes Types: Marijuana ??? Sexual activity: Not on file Other Topics Concern ??? Not on file Social History Narrative ??? Not on file Social Determinants of Health Financial Resource Strain: Not on file Food Insecurity: Not on file Transportation Needs: Not on file Physical Activity: Not on file Stress: Not on file Social Connections: Not on file Housing Stability: Not on file Allergies Allergen Reactions ??? Levaquin [Levofloxacin] Myalgia/Myositis/Arthralgia/Arthritis ??? Cefaclor GI Intolerance/Nausea/Vomiting ??? Erythromycin GI Intolerance/Nausea/Vomiting Scheduled Meds: Continuous Infusions: No current facility-administered medications for this encounter. PRN Meds: (Not in a hospital admission) There were no vitals taken for this visit. Examination Eyes: no icterus CVS: reg rate and rhythm Pulm: non labored Abdomen: soft, NT, ND, BS + Extremities: no c/c/e IMPRESSION: CRC screening, hx rectal carcinoid PLAN: Proceed with planned procedure. Benefits and risks of endoscopic procedure explained to patient including but not limited to bleeding, infection , perforation or anesthesia related side effects. ASA per anesthesia documented in this encounter Plan of Treatment Upcoming Encounters Date Type Department Care Team (Late st Contact Info) Description 11/13/2023 7:45 AM EDT Office Visit [facility] at [address] [phone] Ricci Carter MD [address] [place] [address] 11/13/2023 8:30 AM EDT Infusion [facility] Cancer [place] at [facility] Outpatient Infusion Center [address] [phone] Ricci Carter MD [address] [place] [address] Keiko Hallman MD 80 [facility] [place] [address] 11/20/2023 11:00 AM EDT Appointment [facility] [address] [place] [phone] Ricci Carter MD [address] [place], [place] [phone] 11/20/2023 11:30 AM EDT Appointment [facility] Radiology [facility] [address] [place] [phone] Ricci Carter MD [address] [place], [place] [phone] 03/05/2024 11:00 AM EST Consult [facility] Cardiology [place] [address] [facility] [address] [place] [phone] Ricci Carter MD [address] [place], [place] [phone] Jamil Ralph MD [address] [facility] [address] [place], [place] [phone] 05/30/2024 9:00 AM EST Office Visit [facility] Physicians Department of Internal Medicine [facility] [address] [facility] [address] [place] [address] Consuelo Hobbs PA-C 1210 [facility] 109 [place] [address] documented as of this encounter Visit Diagnoses Not on filedocumented in this encounter Care Teams Machine Maintenance Relationship Specialty Start Date End Date Consuelo Hobbs PA-C 1210 [facility] 109 [place] [address] PCP - General 05/01/19 Madi Sharp MD 85 [facility] [address] [place] [id number] Gastroenterology 7/1/20 documented as of this encounter
--- OUTSIDE RECORDS SUMMARY | 2023-10-29 17:45 | XMS_ITS | Encounter Summary ---
Author Organization [facility] Address [address] [place] [address] Care Team Providers Care Investigation Officer Name Role Phone Consuelo Hobbs PA-C Primary Care Provider Madi Sharp MD Unavailable [phone] Encounter Details Date Type Department Care Team (Late st Contact Info) Description 11/10/2022 Orders Only [facility] Medical Oncology at [address] [phone] Lilli Peguero, YASEMIN [address] [place] [address] Social History Tobacco Use Types Packs/Day Years Used Date Smoking Tobacco: Former Cigarettes 0.3 22 Q uit: 05/17/2021 Smokeless Tobacco: Never Alcohol Use Standard Drinks/Week Comments Not Currently 0 (1 standard drink = 0.6 oz [...] [facility] Medical Oncology at [address] [phone] Ricci Carter MD [address] [place], [place] [phone] 11/13/2023 8:30 AM EDT Infusion [facility] Cancer [place] at [facility]fusion [facility] [address] [phone] Ricci Carter MD [address] [place] [phone] Keiko Hallman MD 80 [facility] [place] [address] 11/20/2023 11:00 AM EDT Appointment [facility] Radiology [facility] [address] [place] [phone] Ricci Carter MD [address] [place], [place] [phone] 11/20/2023 11:30 AM EDT Appointment [facility] Radiology [facility] [address] [place] [phone] Ricci Carter MD [address] [place] [phone] 03/05/2024 11:00 AM EST Consult [facility] Cardiology [address] [place] [phone] Ricci Carter MD [address] [place], [place] [phone] Jamil Ralph MD [address] [place] [facility] [address] [place] [address] 05/30/2024 9:00 AM EST Office Visit [facility] Physicians Department of Internal Medicine [facility] [address] [facility] [address] [place] [address] Consuelo Hobbs PA-C 1210 [facility] [place] [facility] 109 [place], [place] [phone] documented as of this encounter Visit Diagnoses Not on filedocumented in this encounter Care Teams Investigation Officer Relationship Specialty Start Date End Date Consuelo Hobbs PA-C [address] [place] [address] PCP - General 05/01/19 Madi Sharp MD [address] [place] [address] Gastroenterology 10/02/19 documented as of this encounter
--- OUTSIDE RECORDS SUMMARY | 2023-10-29 17:45 | XMS_ITS | Encounter Summary ---
Author Organization [facility] Address [address] [place] [address] Care Team Providers Care Label Cutter Name Role Phone Consuelo Hobbs PA-C Primary Care Provider Madi Sharp MD Unavailable [phone] Reason for Visit * Episode Based Medications (Routine) - Authorized Specialty Diagnoses / Procedures Referred By Contac t Referred To Contact Diagnoses Carcinoid tumor of ileum, unspecified whether malignant (HCC) Keiko Hallman MD 80 [facility] [place] [address] [address] [phone] Referral ID Status Reason Start Date Expiration Date V isits Requested Visits Authorized [id number] Authorized 04/29/2022 11/27/2023 5 2 Encounter Details Date Type Department Care Team (Late st Contact Info) Description 11/10/2022 10:30 AM EDT Infusion [facility] Cancer [place] at [facility] Out[facility] Infusion Center [address] [phone] Ricci Carter MD [address] [place] [address] Keiko Hallman MD 80 [facility] [place] [address] Shital Wallace RN 80 [place] [address] Carcinoid tumor of ileum, unspecified whether malignant (Primary Dx) Social History Tobacco Use Types [...] Sign Reading Time Taken Comments Blood Pressure 148/66 11/10/2022 9:51 AM EDT Pulse 76 11/10/2022 9:51 AM EDT Temperature 35.8 ??C (96.5 ??F) 11/10/2022 9:51 AM ED T Respiratory Rate 16 11/10/2022 9:51 AM EDT Oxygen Saturation 98% 11/10/2022 9:51 AM EDT Inhaled Oxygen Concentration - - Weight 73.9 kg (162 lb 14.4 oz) 11/10/2022 9:51 AM EDT Height 160 cm (5' 2.99) 11/10/2022 9:51 AM EDT Body Mass Index 28.86 11/10/2022 9:51 AM EDT documented in this encounter Plan of Treatment Upcoming Encounters Date Type Department Care Team (Late st Contact Info) Description 11/13/2023 7:45 AM EDT Office Visit [facility] [place] [facility] Oncology at [address] [phone] Ricci Carter MD [address] [place] [address] 11/13/2023 8:30 AM EDT Infusion [facility] Cancer [place] at [facility] Outpatient Infusion Center [address] [phone] Ricci Carter MD [address] [place], [place] [phone] Keiko Hallman MD 80 [facility] [place] [address] 11/20/2023 11:00 AM EDT Appointment [facility] Radiology [facility] [address] [place] [phone] Ricci Carter MD [address] [place], [place] [phone] 11/20/2023 11:30 AM EDT Appointment [facility] Radiology [facility] [address] [place] [phone] Ricci Carter MD [address] [place], [place] [phone] 03/05/2024 11:00 AM EST Consult [facility] Cardiology [address] [place] [phone] Ricci Carter MD [address] [place], [place] [phone] Jamil Ralph MD [address] [facility] [address] [place], [place] [phone] 05/30/2024 9:00 AM EST Office Visit [facility] Department of Internal Medicine [address] [place] [address] Consuelo Hobbs PA-C [address] [phone] documented as of this encounter Visit Diagnoses Diagnosis Carcinoid tumor of ileum, unspecified whether malignant (HCC)- Primary documented in this encounter Administered Medications Inactive Administered Medications - up to 1 most recent administrations Medication Order MAR Action Action Date Dose Rate Site octreotide (SandoSTATIN LAR) IM injection 40 mg 40 mg, Intramuscular, Once, On Marcelle 11/10/22 at 1030, For 1 dose, Administer IM intragluteal (avoid deltoid administration). For intraMUSCULAR use ONLY. Must be administered immediately after mixing. Given 11/10/2022 10:03 AM EDT 40 mg Left Gluteal Upper Outer Quadrant documented in this encounter Care Teams Label Cutter Relationship Specialty Start Date End Date Consuelo Hobbs PA-C [address] [phone] PCP - General 05/01/19 Madi Sharp MD [address] [place] [phone] Gastroenterology 10/02/19 documented as of this encounter
--- OUTSIDE RECORDS SUMMARY | 2023-10-29 17:45 | XMS_ITS | Encounter Summary ---
Author Organization [facility] Address [address] [place] [address] Care Team Providers Care Special Skills Officer Name Role Phone Consuelo Hobbs PA-C Primary Care Provider Madi Sharp MD Unavailable [phone] Reason for Visit * Episode Based Medications (Routine) - Authorized Specialty Diagnoses / Procedures Referred By Contac t Referred To Contact Diagnoses Carcinoid tumor of ileum, unspecified whether malignant (HCC) Keiko Hallman MD 80 [facility] [place] [address] Med Onc Ci [address] [phone] Referral ID Status Reason Start Date Expiration Date V isits Requested Visits Authorized [id number] Authorized 04/29/2022 11/27/2023 5 2 Encounter Details Date Type Department Care Team (Late st Contact Info) Description 11/08/2022 8:30 AM EDT Infusion [facility] Cancer [place] at [facility] Outpatient Infusion Center [address] [phone] Ricci Carter MD [address] [place] [address] Keiko Hallman MD 80 [facility] [place] [address] Jayshree Araiza RN [address] [place] [address] Carcinoid tumor of ileum, unspecified whether malignant [...] Description 11/13/2023 7:45 AM EDT Office Visit [facility] Medical Oncology at [address] [phone] Ricci Carter MD [address] [place] [address] 11/13/2023 8:30 AM EDT Infusion [facility] Cancer [place] at [facility] Outpatient Infusion Center [address] [phone] Ricci Carter MD [address] [place] [address] Keiko Hallman MD [address] [place] [address] Oncology [place] 11/20/2023 11:00 AM EDT Appointment [facility] Radiology [facility] 35 [place] [phone] Ricci Carter MD [address] [place] [address] 11/20/2023 11:30 AM EDT Appointment [facility] Radiology [facility] 35 [place] [phone] Ricci Carter MD [address] [place] [phone] 03/05/2024 11:00 AM EST Consult [facility] Cardiology [place] [address] [facility] [address] [place] [phone] Ricci Carter MD [address] [place] [address] Jamil Ralph MD [address] [place] [facility] [address] [place] [address] 05/30/2024 9:00 AM EST Office Visit [facility] Department of Internal Medicine [facility] [address] [facility] [address] [place] [address] Consuelo Hobbs PA-C [address] [address] documented as of this encounter Visit Diagnoses Diagnosis Carcinoid tumor of ileum, unspecified whether malignant (HCC)- Primary documented in this encounter Care Teams Special Skills Officer Relationship Specialty Start Date End Date Consuelo Hobbs PA-C [address] [address] PCP - General 05/01/19 Madi Sharp MD [address] [address] Gastroenterology 10/02/19 documented as of this encounter
--- OUTSIDE RECORDS SUMMARY | 2023-10-29 17:45 | XMS_ITS | Encounter Summary ---
Author Organization [facility] Address [address] [place] [address] Care Team Providers Care Joint Machine Operator Name Role Phone Zohaib Aldana PA-C Primary Care Provider Madi Sharp MD Unavailable [phone] Reason for Referral * Diagnostic Imaging (Routine) - Closed Specialty Diagnoses / Procedures Referred By Contac t Referred To Contact Diagnoses Malignant carcinoid tumor of ileum (HCC) Procedures MRI Pelvis w w/o contrast Ricci Carter MD [address] [place], [place] [facility] Referral ID Status Reason Start Date Expiration Date Visits Re quested Visits Authorized [id number] Closed 09/06/2022 09/07/2023 1 1 * Diagnostic Imaging (Routine) - Closed Specialty Diagnoses / Procedures Referred By Contbalbir t Referred To Contact Diagnoses Malignant carcinoid tumor of ileum (HCC) Procedures MRI Abdomen w w/o contrast Ricci Carter MD [address] [place] [address] [facility] Referral ID Status Reason Start Date Expiration Date Visits Re quested Visits Authorized [id number] Closed 09/06/2022 09/07/2023 1 1 Encounter Details Date Type Department Care Team (Late st Contact Info) Description 09/06/2022 8:15 AM EDT Office Visit [facility] [place] [facility] at [facility] [address] [place] [phone] Ricci Carter MD [address] [place] [address] 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 No / Unsure 09/06/2022 8:09 AM EDT documented as of this encounter Last Filed Vital Signs Vital Sign Reading Time Taken Comments Blood Pressure 137/64 09/06/2022 8:12 AM EDT Pulse 81 09/06/2022 8:12 AM EDT Temperature 35.6 ??C (96 ??F) 09/06/2022 8:12 AM EDT Respiratory Rate 14 09/06/2022 8:12 AM EDT Oxygen Saturation 98% 09/06/2022 8:12 AM EDT Inhaled Oxygen Concentration - - Weight 77.6 kg (171 lb 1.6 oz) 09/06/2022 8:12 A M EDT Height - - Body Mass Index 30.32 08/16/2022 8:43 AM EDT documented in this encounter Progress Notes * Ricci Carter MD - 09/06/2022 8:15 AM EDT Images from the original note were not included. Medical Oncology/Hematology Progress Note Healthcare Team: Zohaib Aldana PA-C Subjective: Date of visit is: 09/06/2022 Rody Sotelo is a 52 y.o. female who presents here today for a follow- up visit regarding carcinoid. ONCOLOGY HISTORY: - December 16, 2019, colonoscopy was normal. Interim History: She is here alone. A week and a half ago, she reported an episode of dizzyness. This has not recurred. She denies any side effects from Sandostatin LAR. - not requiring any short acting octreotide Diarrhea, remains the same. She reports that most of her diarrheal stools are diet related - ~4-5 stools/day (1-2 stools are liquid/soft) - taking colestipol twice daily with good effect - taking granisetron 2 mg at bedtime - taking ~12 mg loperamide per day She reports no abdominal pain, or cramping, or blood in stools. Rare hot flashes Denies flushing. Her LMP- July 2022 She denies any pain Pain: 0 REVIEW OF SYSTEMS: Review of Systems Constitutional: Positive for fatigue. Negative for appetite change, chills, diaphoresis, fever and unexpected weight change (+ 2- lbs). HENT: Negative for nosebleeds. Respiratory: Negative for cough, shortness of breath and wheezing. Cardiovascular: Negative for leg swelling and palpitations. Gastrointestinal: Negative for abdominal pain, nausea and vomiting. Musculoskeletal: Positive for arthralgias (ankles and feet, persists, saw orthopedics, had cortisone injection). Negative for back pain. Neurological: Positive for headaches (migraines, same). Negative for dizziness and light-headedness. Hematological: Negative for adenopathy. Does not bruise/bleed easily. Psychiatric/Behavioral: Positive for sleep disturbance. The remainder of the 12- point ROS are within normal limits with the exceptions as noted in the HPI. Allergies Allergies Allergen Reactions ??? Levaquin [Levofloxacin] Myalgia/Myositis/Arthralgia/Arthritis ??? Cefaclor GI Intolerance/Nausea/Vomiting ??? Erythromycin GI Intolerance/Nausea/Vomiting Medications Outpatient Medications Marked as Taking for the 09/06/22 encounter (Office Visit) with Ricci Carter MD: ??? busPIRone (BUSPAR) 10 MG tablet, Take 1 tablet (10 mg total) by mouth nightly., Disp: , Rfl: ??? calcium carbonate (OS-ANGELICA) 600 MG tablet, Take 1 tablet (600 mg total) by mouth every morning with breakfast., Disp: , Rfl: ??? Cannabis (MARIJUANA) Misc Medical Prescription Strength, as needed., Disp: , Rfl: ??? colestipol (COLESTID) 1 g tablet, Take 2 tablets (2 g total) by mouth 2 (two) times a day. Witha large glass of water., Disp: 120 tablet, Rfl: 5 ??? ergotamine-caffeine [...] needed for diarrhea., Disp: , Rfl: ??? morphine (ROXANOL) 10 mg/5 mL solution, Take 2.5 mL (5 mg total) by mouth 4 (four) times a day as needed for diarrhea. 2.5-5ML q6hrs prn, Disp: , Rfl: ??? Multiple Vitamins-Minerals (Multi Complete) Cap, Take 1 capsule by mouth See Admin Instructions., Disp: , Rfl: ??? octreotide (SandoSTATIN) 100 MCG/ML injection, Inject 1 mL (100 mcg total) under the skin 3 times daily (every 8 hours) as needed (diarrhea, flushing)., Disp: 90 mL, Rfl: 11 ??? pancrelipase, Qhe-Tgrn-Gthj, (Creon) 8[address]27-842789 units Cap DR Particles capsule, Take 1 capsule (36,000 units of lipase total) by mouth 3 (three) times a day with meals. Dose is in units of lipase., Disp: 90 capsule, Rfl: 5 ??? rizatriptan (MAXALT-GIS CONSULTANT) 10 MG disintegrating tablet, DISSOLVE 1 TABLET ON THE TONGUE EVERY DAYAS NEEDED, Disp: 9 tablet, Rfl: 0 ??? vitamin D3 (CHOLECALCIFEROL) 1.25 MG (34901 UT) tablet, Take 1 tablet (50,000 Units total) by mouth once a week., Disp: 8 tablet, Rfl: 0 Past Medical History Past Medical History: Diagnosis Date ??? Abdominal pain 04/13/2020 ??? Abdominal wall pain in right flank 08/19/2015 ??? Cancer (HCC) ??? IBS (irritable bowel syndrome) ??? Migraine 11/25/2019 ??? Migraines ??? PCOS (polycystic ovarian syndrome) 11/25/2019 ??? PVC (premature ventricular contraction) 11/25/2019 Past Surgical History Past Surgical History: Procedure Laterality Date ??? ENDOSCOPY ??? ENDOSCOPY UPPER N/A 04/22/2021 Preliminary Information: Procedure: ENDOSCOPY UPPER; Surgeon: Madi Sharp MD; Location: [facility]; Service: Gastroenterology; Laterality: N/A; ??? HEMICOLECTOMY Right [...] Grandfather Social History Social History Tobacco Use Smoking Status Former ??? Packs/day: 0.25 ??? Years: 22.00 ??? Pack years: 5.50 ??? Types: Cigarettes ??? Quit date: 05/17/2021 ??? Years since quittin.3 Smokeless Tobacco Never Vaping Use ??? Vaping Use: Never used Social History Substance and Sexual Activity Alcohol Use Not Currently Social History Substance and Sexual Activity Drug Use Yes ??? Types: Marijuana Objective: Wt Readings from Last 2 Encounters: 09/06/22 77.6 kg (171 lb 1.6 oz) 08/16/22 76.8 kg (169 lb 6.4 oz) Physical Exam Vitals: 09/06/22 0812 BP: 137/64 BP Location: Right arm Pulse: 81 Resp: 14 Temp: (!) 96 ??F (35.6 ??C) TempSrc: Tympanic SpO2: 98% Weight: 77.6 kg (171 lb 1.6 oz) Performance status: ECOG (0) Fully active, [...] Thought content normal. Judgment: Judgment normal. Results: Gynecology notes reviewed Orthopedic note reviewed - July 27, 2022, US Breast diagnostic complete-Right and MM Breast tomosynthesis diagnostic-Right FILMS COMPARED: The present examination has been compared to a prior imaging study dated 06/02/2022. FERNANDO STATEMENT: The following digital mammographic views were obtained: right craniocaudal spot compression with tomosynthesis, right mediolateral with tomosynthesis. MAMMOGRAM FINDINGS: There are scattered fibroglandular densities. (ACR BIRADS density Category b) * Additional evaluation was performed for the area of architectural distortion in the right breast, lateral aspect seen on 06/02/2022. The finding does not persist on the present exam. ULTRASOUND FINDINGS: Targeted high resolution grayscale sonography was performed of the area of concern. The finding in question is not seen on ultrasound. Impression: There is no mammographic or sonographic evidence of malignancy. Routine follow-up mammogram in 1 year is recommended. BIRADS Category 2: Benign Finding(s) Lab Results Component Value Date WBC 7.4 06/28/2022 RBC 4.07 06/28/2022 HGB 11.2 (L) 06/28/2022 MCV 82.6 06/28/2022 PLT 252 06/28/2022 NEUTROABS 3,567 06/28/2022 LYMPHSABS 3,041 06/28/2022 MONOSABS 688 06/28/2022 EOSABS 67 06/28/2022 BASOABS 37 06/28/2022 Lab Results Component Value Date ALT 47 (H) 06/28/2022 AST 36 (H) 06/28/2022 ALKPHOS 76 06/28/2022 BILITOT 0.3 06/28/2022 Lab Results Component Value Date GLUC 78 06/28/2022 CALCIUM 9.1 06/28/2022 NA 139 06/28/2022 K 3.9 06/28/2022 CO2 30 06/28/2022 CL 102 06/28/2022 BUN 12 06/28/2022 CREAT 0.73 06/28/2022 Assessment/Plan: 1. Carcinoid, [id number] A. Diagnosed July 11, 2013 1. S/p small bowel resection and right hemicolectomy a. Path- well- differentiated neuroendocrine tumor B. Receiving Sandostatin LAR, initiated October 17, 2013 1. re- staging MR abdomen/pelvis (January 09, 2020)- SD 2. re- staging MR abdomen/pelvis (January 18, 2021)- SD 3. re- staging MR abdomen/pelvis (October 07, 2021)- SD 4. re- staging MR abdomen/pelvis (May 2022)- SD In summary, Rody is a 52 y.o. female with a PMHx significant for: migraines, PCOS, IBS and PVCs whopresents here today for a follow- up visit regarding carcinoid. Rody is here for oncologic follow-up for the continued management of her carcinoid. She presents without any worsening diarrheal symptoms. She has no new complaints or concerns. She is tolerating Sandostatin LAR well and without any adverse effects. On August 16, 2022, she received her last dose of Sandostatin LAR. All GI symptoms remain under good control. She is without any clinical evidence for progression of her carcinoid. I have recommended no changes to her therapy. Plan: - continue Sandostatin LAR every 3 weeks, treatment today - continue colestipol 1 g twice daily, granisetron 2 mg once daily, loperamide as needed, and shortacting octreotide as needed - Creon with meals - re- staging MRI in November 2022 (ordered) - labs ordered at time of next cycle of treatment She is working on scheduling her colonoscopy. She remains tobacco free. I congratulated her. Immunizations: She received her 1st shingles vaccine. She will receive her 2nd dose next week. ORDERS 1. Malignant carcinoid tumor of ileum (HCC) - MRI Abdomen w w/o contrast; Future - MRI Pelvis w w/o contrast; Future - Complete Blood Count, with Differential; Future - BASIC METABOLIC PANEL; Future - HEPATIC FUNCTION PANEL; Future - Chromogranin A, LC/MS/MS - [facility] No orders of the defined types were placed in this encounter. The patient will return in 12 weeks. There are no Patient Instructions on file for this visit. documented in this encounter Plan of Treatment Upcoming Encounters Date Type Department Care Team (Late st Contact Info) Description 11/13/2023 7:45 AM EDT Office Visit [facility] at [address] [phone] Ricci Carter MD [address] [place], [place] [phone] 11/13/2023 8:30 AM EDT Infusion [facility] [place] [facility] [address] [phone] Ricci Carter MD [address] [place], [place] [phone] Keiko Hallman MD [address] [facility] [place] [address] 11/20/2023 11:00 AM EDT Appointment [facility] [address] [place] [phone] Ricci Carter MD [address] [place], [place] [phone] 11/20/2023 11:30 AM EDT Appointment [facility] [address] [place] [phone] Ricci Carter MD [address] [place], [place] [phone] 03/05/2024 11:00 AM EST Consult [facility] Cardiology [address] [place] [phone] Ricci Carter MD [address] [place] [address] Jamil Ralph MD [address] [place] [address] 05/30/2024 9:00 AM EST Office Visit [facility] Department of Internal Medicine [facility] [address] [facility] [address] [place], [place] [phone] Zohaib Aldana PA-C [address] [facility] [address] [place], [place] [phone] Scheduled Orders Name Type Priority Associated Diagnoses Orde r Schedule Complete Blood Count, with Differential Lab Routine Malignant carcinoid tumor of ileum (HCC) Expected: 09/06/2022 (Approximate), Expires: 09/07/2023 BASIC METABOLIC PANEL Lab Routine Malignant carcinoid tumor of ileum (HCC) Expected: 09/06/2022 (Approximate), Expires: 09/07/2023 HEPATIC FUNCTION PANEL Lab Routine Malignant carcinoid tumor of ileum (HCC) Expected: 09/06/2022 (Approximate), Expires: 09/07/2023 Chromogranin A, LC/MS/MS - [facility] Routine Malignant carcinoid tumor of ileum (HCC) Ordered: 09/06/2022 documented as of this encounter Procedures Procedure Name Priority Date/Time Associated Diagnosis Comments MRI ABDOMEN W W/O CONTRAST Routine 11/14/2022 9:01 AM EDT Malignant carcinoid tumor of ileum (HCC) MRI PELVIS W W/O CONTRAST Routine 11/14/2022 9:01 AM EDT Malignant carcinoid tumor of ileum (HCC) documented in this encounter Results * MRI Pelvis w w/o contrast (11/14/2022 9:01 AM EDT) Anatomical Region Laterality Modality Pelvis Magnetic Resonan ce 11/14/2022 8:30 AM EDT 11/14/2022 8:30 AM EDT Impressions 11/14/2022 11:50 AM EDT 1. ??When accounting for differences in measurement technique, no significant change in size of the 3 cm central mesenteric mass. A 2.4 x 1.6 cm slightly more superior upper mesenteric nodule appears to slightly increased in size compared to priors. 2. ??Nonspecific arterially hyperenhancing observation in the posterior aspect of the right hepatic lobe, only visualized on the arterial phase, favoring to represent a transient perfusion abnormality. Attention on follow-up in future imaging recommended. 3. ??Hepatic steatosis. Thank you for referring your patient to us, Mariaa Haque MD [phone] (Electronically Signed - 11/14/2022 11:50) Copy: ZOHAIB ALDANA PA-C [facility] [address] [facility] [address] [place] [address] Narrative 11/14/2022 11:50 AM EDT EXAMINATION: MRI ABDOMEN AND PELVIS WITH AND WITHOUT CONTRAST CLINICAL INFORMATION: History of benign carcinoid the ileum, restaging. COMPARISON: MR abdomen and pelvis 05/05/2022. ?? TECHNIQUE: Multiple routine MRI sequences through the abdomen and pelvis were obtained before and after the uneventful administration of 8 mL Gadavist gadolinium-based IV contrast. FINDINGS: LUNG BASES: Lung bases are clear. LIVER: There is signal loss in the opposed phase dual echo images most suggestive of hepatic steatosis. Otherwise, liver is normal in size and shape. There is an ill-defined arterially hyperenhancing observation in the posterior aspect of the upper right hepatic lobe axial image 45 series 1501, only identified on the arterial postcontrast images, not present on prior examinations, overall favored to represent a transient perfusional abnormality. GALLBLADDER AND BILIARY TREE: Cholecystectomy. Stable dilatation of the common bile duct measuring up to 1.3 cm in diameter which is likely related with chronic post cholecystectomy state. No significant intrahepatic biliary ductal dilatation. SPLEEN: Normal size. No focal lesion. PANCREAS: Normal. ADRENAL GLANDS: No adrenal mass. KIDNEYS AND URETERS: Redemonstration of homogeneous T2 bright avascular 2.2 cm cyst in the anterior upper right kidney, for which no imaging follow-up is recommended. GASTROINTESTINAL: Again noted postsurgical changes from prior right hemicolectomy. No abnormal dilatation to suspect bowel obstruction. PELVIS: Soft tissue nodules in the subcutaneous fat of the bilateral gluteal regions, favoring to represent injection sites. Anteverted uterus with a normal configuration. There is a 0.8 cm homogeneous T2 dark lesion in the myometrium of the uterine fundus coronal image 18 series 7, favored to represent a fibroid. Normal endometrial thickness. Junctional zone is normal in thickness and signal. Again noted scar along the lower uterine segment. Incidentally noted nabothian cysts. Normal appearance of the vagina. Symmetric ovaries with normal morphology. No free fluid or ascites. No focal urinary bladder abnormality. No pelvic lymphadenopathy. LYMPHOVASCULAR STRUCTURES: A bilobed enhancing mesenteric mass in the right para midline central mesentery does not appear convincingly changed in size measuring 3 x 2 cm axial image 124 series 1501, previously 2.9 x 2.2 cm when measured in a similar fashion on MRI from 05/05/2022 and 2.8 x 2.1 cm on MRI from 10/07/2021. A more superiorly located mesenteric lymph node, just anterior to the SMA on axial image 100 series 1501 continues to increase in size currently measuring 2.4 x 1.6 cm previously 2.1 x 1.4 cm on 05/05/2022 and 1.9 x 1.6 cm on 10/07/2021. There is overall similar degree of mass effect with flattening of the SMV as it courses through these mesenteric masses. Normal caliber abdominal aorta. OSSEOUS STRUCTURES: No acute or suspicious osseous abnormalities. Procedure Note Mariaa Haque MD - 11/14/2022 EXAMINATION: MRI ABDOMEN AND PELVIS WITH AND WITHOUT CONTRAST CLINICAL INFORMATION: History of benign carcinoid the ileum, restaging. COMPARISON: MR abdomen and pelvis 05/05/2022. TECHNIQUE: Multiple routine MRI sequences through the abdomen and pelvis wereobtained before and after the uneventful administration of 8 mL Gadavist gadolinium-based IV contrast. FINDINGS: LUNG BASES: Lung bases are clear. LIVER: There is signal loss in the opposed phase dual echo images most suggestive of hepatic steatosis. Otherwise, liver is normal in size andshape. There is an ill-defined arterially hyperenhancing observation in theposterior aspect of the upper right hepatic lobe axial image 45 series 1501, only identified on the arterial postcontrast images, not present on prior examinations, overall favored to represent a transient perfusional abnormality. GALLBLADDER AND BILIARY TREE: Cholecystectomy. Stable dilatation of thecommon bile duct measuring up to 1.3 cm in diameter which is likely relatedwith chronic post cholecystectomy state. No significant intrahepatic biliaryductal dilatation. SPLEEN: Normal size. No focal lesion. PANCREAS: Normal. ADRENAL GLANDS: No adrenal mass. KIDNEYS AND URETERS: Redemonstration of homogeneous T2 bright avascular2.2 cm cyst in the anterior upper right kidney, for which no imaging follow-upis recommended. GASTROINTESTINAL: Again noted postsurgical changes from prior right hemicolectomy. No abnormal dilatation to suspect bowel obstruction. PELVIS: Soft tissue nodules in the subcutaneous fat of the bilateralgluteal regions, favoring to represent injection sites. Anteverted uterus with a normal configuration. There is a 0.8 cmhomogeneous T2 dark lesion in the myometrium of the uterine fundus coronal image 18series 7, favored to represent a fibroid. Normal endometrial thickness.Junctional zone is normal in thickness and signal. Again noted scar alongthe lower uterine segment. Incidentally noted nabothian cysts. Normal appearance of the vagina. Symmetric ovaries with normal morphology. No free fluid or ascites. No focal urinary bladder abnormality. No pelvic lymphadenopathy. LYMPHOVASCULAR STRUCTURES: A bilobed enhancing mesenteric mass in theright para midline central mesentery does not appear convincingly changed insize measuring 3 x 2 cm axial image 124 series 1501, previously 2.9 x 2.2 cmwhen measured in a similar fashion on MRI from 05/05/2022 and 2.8 x 2.1 cm onMRI from 10/07/2021. A more superiorly located mesenteric lymph node, just anterior to the SMAon axial image 100 series 1501 continues to increase in size currentlymeasuring 2.4 x 1.6 cm previously 2.1 x 1.4 cm on 05/05/2022 and 1.9 x 1.6 cm on 10/07/2021. There is overall similar degree of mass effect with flattening of the SMVas it courses through these mesenteric masses. Normal caliber abdominal aorta. OSSEOUS STRUCTURES: No acute or suspicious osseous abnormalities. IMPRESSION: 1. When accounting for differences in measurement technique, nosignificant change in size of the 3 cm central mesenteric mass. A 2.4 x 1.6 cmslightly more superior upper mesenteric nodule appears to slightly increased insize compared to priors. 2. Nonspecific arterially hyperenhancing observation in the posterioraspect of the right hepatic lobe, only visualized on the arterial phase, favoringto represent a transient perfusion abnormality. Attention on follow-up infuture imaging recommended. 3. Hepatic steatosis. Thank you for referring your patient to us, Mariaa Haque MD [phone] (Electronically Signed - 11/14/2022 11:50) Copy: ZOHAIB ALDANA PA-C [facility] [address] [facility] [facility] [address] [place] [address] (36 Ricci Carter MD IMG MRI ORDERABLES * MRI Abdomen w w/o contrast (11/14/2022 9:01 AM EDT) Anatomical Region Laterality Modality Abdomen Magnetic Resonan ce 11/14/2022 8:00 AM EDT 11/14/2022 8:00 AM EDT Impressions 11/14/2022 11:50 AM EDT 1. ??When accounting for differences in measurement technique, no significant change in size of the 3 cm central mesenteric mass. A 2.4 x 1.6 cm slightly more superior upper mesenteric nodule appears to slightly increased in size compared to priors. 2. ??Nonspecific arterially hyperenhancing observation in the posterior aspect of the right hepatic lobe, only visualized on the arterial phase, favoring to represent a transient perfusion abnormality. Attention on follow-up in future imaging recommended. 3. ??Hepatic steatosis. Thank you for referring your patient to us, Mariaa Haque MD [phone] (Electronically Signed - 11/14/2022 11:50) Copy: ZOHAIB ALDANA PA-C [facility] [address] [facility] [address] [address] [place] [address] Narrative 11/14/2022 11:50 AM EDT EXAMINATION: MRI ABDOMEN AND PELVIS WITH AND WITHOUT CONTRAST CLINICAL INFORMATION: History of benign carcinoid the ileum, restaging. COMPARISON: MR abdomen and pelvis 05/05/2022. ?? TECHNIQUE: Multiple routine MRI sequences through the abdomen and pelvis were obtained before and after the uneventful administration of 8 mL Gadavist gadolinium-based IV contrast. FINDINGS: LUNG BASES: Lung bases are clear. LIVER: There is signal loss in the opposed phase dual echo images most suggestive of hepatic steatosis. Otherwise, liver is normal in size and shape. There is an ill-defined arterially hyperenhancing observation in the posterior aspect of the upper right hepatic lobe axial image 45 series 1501, only identified on the arterial postcontrast images, not present on prior examinations, overall favored to represent a transient perfusional abnormality. GALLBLADDER AND BILIARY TREE: Cholecystectomy. Stable dilatation of the common bile duct measuring up to 1.3 cm in diameter which is likely related with chronic post cholecystectomy state. No significant intrahepatic biliary ductal dilatation. SPLEEN: Normal size. No focal lesion. PANCREAS: Normal. ADRENAL GLANDS: No adrenal mass. KIDNEYS AND URETERS: Redemonstration of homogeneous T2 bright avascular 2.2 cm cyst in the anterior upper right kidney, for which no imaging follow-up is recommended. GASTROINTESTINAL: Again noted postsurgical changes from prior right hemicolectomy. No abnormal dilatation to suspect bowel obstruction. PELVIS: Soft tissue nodules in the subcutaneous fat of the bilateral gluteal regions, favoring to represent injection sites. Anteverted uterus with a normal configuration. There is a 0.8 cm homogeneous T2 dark lesion in the myometrium of the uterine fundus coronal image 18 series 7, favored to represent a fibroid. Normal endometrial thickness. Junctional zone is normal in thickness and signal. Again noted scar along the lower uterine segment. Incidentally noted nabothian cysts. Normal appearance of the vagina. Symmetric ovaries with normal morphology. No free fluid or ascites. No focal urinary bladder abnormality. No pelvic lymphadenopathy. LYMPHOVASCULAR STRUCTURES: A bilobed enhancing mesenteric mass in the right para midline central mesentery does not appear convincingly changed in size measuring 3 x 2 cm axial image 124 series 1501, previously 2.9 x 2.2 cm when measured in a similar fashion on MRI from 05/05/2022 and 2.8 x 2.1 cm on MRI from 10/07/2021. A more superiorly located mesenteric lymph node, just anterior to the SMA on axial image 100 series 1501 continues to increase in size currently measuring 2.4 x 1.6 cm previously 2.1 x 1.4 cm on 05/05/2022 and 1.9 x 1.6 cm on 10/07/2021. There is overall similar degree of mass effect with flattening of the SMV as it courses through these mesenteric masses. Normal caliber abdominal aorta. OSSEOUS STRUCTURES: No acute or suspicious osseous abnormalities. Procedure Note Mariaa Haque MD - 11/14/2022 EXAMINATION: MRI ABDOMEN AND PELVIS WITH AND WITHOUT CONTRAST CLINICAL INFORMATION: History of benign carcinoid the ileum, restaging. COMPARISON: MR abdomen and pelvis 05/05/2022. TECHNIQUE: Multiple routine MRI sequences through the abdomen and pelvis wereobtained before and after the uneventful administration of 8 mL Gadavist gadolinium-based IV contrast. FINDINGS: LUNG BASES: Lung bases are clear. LIVER: There is signal loss in the opposed phase dual echo images most suggestive of hepatic steatosis. Otherwise, liver is normal in size andshape. There is an ill-defined arterially hyperenhancing observation in theposterior aspect of the upper right hepatic lobe axial image 45 series 1501, only identified on the arterial postcontrast images, not present on prior examinations, overall favored to represent a transient perfusional abnormality. GALLBLADDER AND BILIARY TREE: Cholecystectomy. Stable dilatation of thecommon bile duct measuring up to 1.3 cm in diameter which is likely relatedwith chronic post cholecystectomy state. No significant intrahepatic biliaryductal dilatation. SPLEEN: Normal size. No focal lesion. PANCREAS: Normal. ADRENAL GLANDS: No adrenal mass. KIDNEYS AND URETERS: Redemonstration of homogeneous T2 bright avascular2.2 cm cyst in the anterior upper right kidney, for which no imaging follow-upis recommended. GASTROINTESTINAL: Again noted postsurgical changes from prior right hemicolectomy. No abnormal dilatation to suspect bowel obstruction. PELVIS: Soft tissue nodules in the subcutaneous fat of the bilateralgluteal regions, favoring to represent injection sites. Anteverted uterus with a normal configuration. There is a 0.8 cmhomogeneous T2 dark lesion in the myometrium of the uterine fundus coronal image 18series 7, favored to represent a fibroid. Normal endometrial thickness.Junctional zone is normal in thickness and signal. Again noted scar alongthe lower uterine segment. Incidentally noted nabothian cysts. Normal appearance of the vagina. Symmetric ovaries with normal morphology. No free fluid or ascites. No focal urinary bladder abnormality. No pelvic lymphadenopathy. LYMPHOVASCULAR STRUCTURES: A bilobed enhancing mesenteric mass in theright para midline central mesentery does not appear convincingly changed insize measuring 3 x 2 cm axial image 124 series 1501, previously 2.9 x 2.2 cmwhen measured in a similar fashion on MRI from 05/05/2022 and 2.8 x 2.1 cm onMRI from 10/07/2021. A more superiorly located mesenteric lymph node, just anterior to the SMAon axial image 100 series 1501 continues to increase in size currentlymeasuring 2.4 x 1.6 cm previously 2.1 x 1.4 cm on 05/05/2022 and 1.9 x 1.6 cm on 10/07/2021. There is overall similar degree of mass effect with flattening of the SMVas it courses through these mesenteric masses. Normal caliber abdominal aorta. OSSEOUS STRUCTURES: No acute or suspicious osseous abnormalities. IMPRESSION: 1. When accounting for differences in measurement technique, nosignificant change in size of the 3 cm central mesenteric mass. A 2.4 x 1.6 cmslightly more superior upper mesenteric nodule appears to slightly increased insize compared to priors. 2. Nonspecific arterially hyperenhancing observation in the posterioraspect of the right hepatic lobe, only visualized on the arterial phase, favoringto represent a transient perfusion abnormality. Attention on follow-up infuture imaging recommended. 3. Hepatic steatosis. 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 [address] [place] [address] PCP - General 05/01/19 Madi Sharp MD [address] [address] Gastroenterology 10/02/19 documented as of this encounter
--- OUTSIDE RECORDS SUMMARY | 2023-10-29 17:45 | XMS_ITS | Encounter Summary ---
Author Organization [facility] Address [address] [place] [address] Care Team Providers Care Scrap Kettle Tender Name Role Phone Consuelo Hobbs PA-C Primary Care Provider Madi Sharp MD Unavailable [phone] Encounter Details Date Type Department Care Team (Latest Contact Info) Description 09/27/2022 Travel Social History Tobacco Use Types Packs/Day [...] AM EDT documented as of this encounter Plan of Treatment Upcoming Encounters Date Type Department Care Team (Late st Contact Info) Description 11/13/2023 7:45 AM EDT Office Visit [facility] [place] [facility]cology at [address] [phone] Ricci Carter MD [address] [place] [address] 11/13/2023 8:30 AM EDT Infusion [facility] [place] at [facility] [place] [address] [place] [address] Ricci Carter MD [address] [place] [address] Keiko Hallman MD 80 [facility] [place] [address] 11/20/2023 11:00 AM EDT Appointment [facility] Radiology [facility] [address] [place] [phone] Ricci Carter MD [address] [place] [address] 11/20/2023 11:30 AM EDT Appointment [facility] Radiology [facility] [address] [place] [phone] Ricci Carter MD [address] [place] [address] 03/05/2024 11:00 AM EST Consult [facility] Cardiology [place] [address] [facility] [address] [place] [phone] Ricci Carter MD [address] [place] [address] Jamil Ralph MD [address] [facility] [address] [place] [address] 05/30/2024 9:00 AM EST Office Visit [facility] Department of Internal Medicine [facility] [address] [phone] Consuelo Hobbs PA-C [address] [phone] documented as of this encounter Visit Diagnoses Not on filedocumented in this encounter Care Teams Scrap Kettle Tender Relationship Specialty Start Date End Date Consuelo Hobbs PA-C [address] [phone] PCP - General 05/01/19 Madi Sharp MD [address] [place] [address] Gastroenterology 10/02/19 documented as of this encounter
--- OUTSIDE RECORDS SUMMARY | 2023-10-29 17:45 | XMS_ITS | Encounter Summary ---
Author Organization [facility] Address [address] [place] [address] Care Team Providers Care Formal Wear Rental Clerk Name Role Phone Consuelo Hobbs PA-C Primary Care Provider Madi Sharp MD Unavailable [phone] Reason for Visit * Reason Comments Labs Only Encounter Details Date Type Department Care Team (Late st Contact Info) Description 11/10/2022 10:30 AM EDT Lab [facility] [place] [facility] Oncology at [address] [phone] Ricci Carter MD [address] [place] [address] Malignant carcinoid tumor of ileum (HCC) (Primary Dx) Social History Tobacco Use [...] 11/13/2023 7:45 AM EDT Office Visit [facility] at [address] [phone] Ricci Carter MD [address] [place], [place] [phone] 11/13/2023 8:30 AM EDT Infusion [facility] [place] at [facility] Outpatient Infusion Center [address] [phone] Ricci Carter MD [address] [place], [place] [phone] Keiko Hallman MD 80 [facility] [place] [address] 11/20/2023 11:00 AM EDT Appointment [facility] Radiology [facility] [address] [place] [phone] Ricci Carter MD [address] [place], [place] [phone] 11/20/2023 11:30 AM EDT Appointment [facility] Radiology [facility] [address] [place] [phone] Ricci Carter MD [address] [place], [place] [phone] 03/05/2024 11:00 AM EST Consult [facility] Cardiology [address] [place] [phone] Ricci Carter MD [address] [place], [place] [phone] Jamil Ralph MD [address] [place] [address] 05/30/2024 9:00 AM EST Office Visit [facility] Department of Internal Medicine [facility] [address] [facility] [address] [place], [place] [phone] Consuelo Hobbs PA-C 1210 [facility] [address] [place], [place] [phone] documented as of this encounter Procedures Procedure Name Priority Date/Time Associated Diagnosis Comments CHROMOGRANIN A STAT 11/10/2022 10:07 AM EDT Malignant carcinoid tumor of ileum (HCC) documented in this encounter Results * (ABNORMAL) Chromogranin A (11/10/2022 10:07 AM EDT) Chromogranin A 565(H) ADULTS: <311 ng/mL 11/17/2022 8:38 PM EDT [facility] Comment: (NOTE) The sample type for this test was serum. Interpretation of patient results may be affected by a variety of conditions such as hypertension, gastritis, prostate cancer, hyperparathyroidism, and most commonly renal disease and use of proton pump inhibitors (PPIs). (Noreen Barbosa, et al. Chromogranin A measurement in metastatic well-differentiated gastroenteropancreatic neuroendocrine carcinoma: screening for false positives and a prospective follow-up study. Int J Biol Markers. 2010;26(2):94-101.) This test was performed using a Liquid Chromatography Mass Spectrometry method. Values obtained from different assay methods cannot be used interchangeably. Chromogranin A levels, regardless of value, should not be interpreted as absolute evidence of the presence or absence of disease. This test was developed and its analytical performance characteristics have been determined by [facility]. It has not been cleared or approved by FDA. This assay has been validated pursuant to the CLIA regulations and is used for clinical purposes. ? Test performed by [facility] ? [address], ? [place] [address] ? 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
--- OUTSIDE RECORDS SUMMARY | 2023-10-29 17:45 | XMS_ITS | Encounter Summary ---
Author Organization [facility] Address [address] [place] [address] Care Team Providers Care C2 Tactical Analysis Technician Name Role Phone Consuelo Hobbs PA-C Primary Care Provider Madi Sharp MD Unavailable [phone] Encounter Details Date Type Department Care Team (Latest Contact Info) Description 11/29/2022 Travel Social History Tobacco Use Types Packs/Day [...] Description 11/13/2023 7:45 AM EDT Office Visit [facility] Medical Oncology at [address] [phone] Ricci Carter MD [address] [place] [address] 11/13/2023 8:30 AM EDT Infusion [facility] Cancer [place] at [facility]fusion [facility] [place] [address] [place] [phone] Ricci Carter MD [address] [place], [place] [phone] Keiko Hallman MD 80 [facility] [place] [address] 11/20/2023 11:00 AM EDT Appointment [facility] Radiology [facility] [address] [place] [phone] Ricci Carter MD [address] [place], [place] [phone] 11/20/2023 11:30 AM EDT Appointment [facility] Radiology [facility] [address] [place] [phone] Ricci Carter MD [address] [place], [place] [phone] 03/05/2024 11:00 AM EST Consult [facility] Cardiology [address] [place] [phone] Ricci Carter MD [address] [place], [place] [phone] Jamil Ralph MD [address] [facility] [address] [place], [place] [phone] 05/30/2024 9:00 AM EST Office Visit [facility] Department of Internal Medicine [address] [place] [address] Consuelo Hobbs PA-C [address] [address] documented as of this encounter Visit Diagnoses Not on filedocumented in this encounter Care Teams C2 Tactical Analysis Technician Relationship Specialty Start Date End Date Consuelo Hobbs PA-C [address] [phone] PCP - General 05/01/19 Madi Sharp MD [address] [place] [address] Gastroenterology 10/02/19 documented as of this encounter
--- OUTSIDE RECORDS SUMMARY | 2023-10-29 17:45 | XMS_ITS | Encounter Summary ---
Author Organization [facility] Address [address] [place] [address] Care Team Providers Care Masonry Instructor Name Role Phone Consuelo Hobbs PA-C Primary Care Provider Madi Sharp MD Unavailable [phone] Encounter Details Date Type Department Care Team (Late st Contact Info) Description 11/25/2022 1:50 PM EDT Anesthesia Event [facility] ENDO PROC GLAST [address] [place] [address] Huey Dodd MD [address] [place], [place] [address] Anesthesia Record Procedure Summary Procedure Name Responsible Anesthesiologist Anesthesia Start Time Anesthesia Stop Time COLONOSCOPY Events Date Time Event Comment 11/25/2022 [id number] Case Charted on Paper Which portion(s) of your chart were completed on paper? {Anesthesia Record Portion:[id number]} Why did you use paper? {Anesthesia Paper Reason:[id number]} Meds * Agents No agents on file. * Blood No blood administrations on file. Lines, Drains, and Airways No LDAs on file. documented in this encounter Social History Tobacco Use Types Packs/Day Years [...] PM EDT documented as of this encounter OR Notes * Anesthesia Preprocedure Evaluation - Huey Dodd MD - 11/25/2022 1:34 PM EDT Department of Anesthesiology Pre-Procedure Evaluation Patient Name: Rody Sotelo : 1970 Admission Date: 11/25/2022 Attending Provider: Madi Sharp MD Date of Service: 11/25/2022 Scheduled Procedure: COLONOSCOPY, N/A Pre-operative Diagnosis: Screening for colon cancer [Z12.11] Malignant carcinoid tumor of ileum (HCC) [C7A.012] Relevant Problems No relevant active problems Allergies Allergen Reactions ??? Levaquin [Levofloxacin] Myalgia/Myositis/Arthralgia/Arthritis ??? Cefaclor GI Intolerance/Nausea/Vomiting ??? Erythromycin GI Intolerance/Nausea/Vomiting No data recorded Patient summary reviewed. Nursing notes reviewed. Pre-procedure vital signs reviewed. NPO status verified. Respiratory Cardiovascular Positives: Exercise tolerance: >4 METS Neuromuscular Positives: headaches GI/Hepatic/Renal Endo/MET Hem/Lymph Skel/Skin Psych HEENT Obstetrics Other Syndromes Physical Exam Airway Mallampati II TM distance >3 FB Neck ROM: full Dentition - no notable dental history Cardiovascular - cardiovascular exam normal Pulmonary - pulmonary exam normal Abdominal - abdominal exam normal Past Medical History: Diagnosis Date ??? Abdominal pain 04/13/2020 ??? Abdominal wall pain in right flank 08/19/2015 ??? Cancer (HCC) ??? Carcinoid tumor of gastrointestinal tract ??? IBS (irritable bowel syndrome) ??? Migraine 11/25/2019 ??? Migraines ??? PCOS (polycystic ovarian syndrome) 11/25/2019 ??? PVC (premature ventricular contraction) 11/25/2019 Past Surgical History: Procedure Laterality Date ??? ENDOSCOPY ??? ENDOSCOPY UPPER N/A 04/22/2021 Preliminary Information: Procedure: ENDOSCOPY UPPER; Surgeon: Madi Sharp MD; Location: [facility]; Service: Gastroenterology; Laterality: N/A; ??? HEMICOLECTOMY Right ??? TONSILECTOMY, ADENOIDECTOMY, BILATERAL MYRINGOTOMY AND TUBES Family History Problem Relation Age of Onset [...] on file Housing Stability: Not on file Ht Readings from Last 1 Encounters: 11/10/22 1.6 m (5' 2.99) Wt Readings from Last 1 Encounters: 11/10/22 73.9 kg (162 lb 14.4 oz) There is no height or weight on file to calculate BMI. White Blood Cell Count Date Value Ref Range Status 09/27/2022 7.1 4.0 - 11.0 Thou/uL Final Hemoglobin Date Value Ref Range Status 09/27/2022 11.1 (L) 11.7 - 15.7 g/dL Final Hematocrit Date Value Ref Range Status 09/27/2022 35.7 35.0 - 47.0 % Final Platelet Count Date Value Ref Range Status 09/27/2022 250 150 - 450 Thou/uL Final Sodium Date Value Ref Range Status 09/27/2022 137 135 - 146 mmol/L Final Potassium Date Value Ref Range Status 09/27/2022 4.1 3.5 - 5.3 mmol/L Final CO2 Date Value Ref Range Status 09/27/2022 26 20 - 32 mmol/L Final Chloride Date Value Ref Range Status 09/27/2022 103 98 - 110 mmol/L Final Glucose Date Value Ref Range Status 09/27/2022 84 65 - 99 mg/dL Final Comment: Fasting reference interval Blood Urea Nitrogen (BUN) Date Value Ref Range Status 09/27/2022 10 7 - 25 mg/dL Final Creatinine Date Value Ref Range Status 09/27/2022 0.77 0.50 - 1.03 mg/dL Final Calcium Date Value Ref Range Status 09/27/2022 8.7 8.6 - 10.4 mg/dL Final No results found for: ABORH, TYPE, SCREEN No results found for this or any previous visit (from the past 8760 hour(s)). NPO Status: Date of Last Liquid Consumption: 11/25/22 Time of Last Liquid Consumption: 0800 Date of Last Solid Consumption: 11/24/22 Time of Last Solid Consumption: 06 Anesthesia Plan ASA Score: ASA 2 Consent: The anesthetic plan and associated risks was discussed with patient. Anesthesia Plan: MAC anesthesia The plan was discussed with the following care providers: COMMERCIAL INTELLIGENCE MANAGER. Attending Note I personally evaluated and examined the patient prior to the intra-operative phase of care. Huey Dodd MD documented in this encounter Plan of Treatment Upcoming Encounters Date Type Department Care Team (Late st Contact Info) Description 11/13/2023 7:45 AM EDT Office Visit [facility] Medical Oncology at [address] [phone] Ricci Carter MD [address] [place] [address] 11/13/2023 8:30 AM EDT Infusion [facility] [place] at [facility] Outpatient [address] [phone] Ricci Carter MD [address] [place] [address] Keiko Hallman MD 80 [facility] [place] [address] 11/20/2023 11:00 AM EDT Appointment [facility] Radiology [place] [facility] [address] [place] [phone] Ricci Carter MD [address] [place], [place] [phone] 11/20/2023 11:30 AM EDT Appointment [facility] Radiology [place] [facility] [address] [place] [phone] Ricci Carter MD [address] [place], [place] [phone] 03/05/2024 11:00 AM EST Consult [facility] Medical [facility] Cardiology [address] [place] [phone] Ricci Carter MD [address] [place], [place] [phone] Jamil Ralph MD [address] [address] 05/30/2024 9:00 AM EST Office Visit [facility] Department of Internal [facility] 1210 [facility] [address] [place], [place] [phone] Consuelo Hobbs PA-C [address] [address] documented as of this encounter Visit Diagnoses Not on filedocumented in this encounter Care Teams Masonry Instructor Relationship Specialty Start Date End Date Consuelo Hobbs PA-C [address] [phone] PCP - General 05/01/19 Madi Sharp MD [address] [address] Gastroenterology 10/02/19 documented as of this encounter
--- OUTSIDE RECORDS SUMMARY | 2023-10-29 17:45 | XMS_ITS | Encounter Summary ---
Author Organization [facility] Address [address] [place] [address] Care Team Providers Care Park Interpretive Specialist Name Role Phone Consuelo Hobbs PA-C Primary Care Provider Madi Sharp MD Unavailable [phone] Reason for Visit * Reason Comments Bypass Screening Encounter Details Date Type Department Care Team (Late st Contact Info) Description 09/16/2022 Telephone [facility] [address] [phone] Lisette Sánchez 30 [facility] [place] [address] Bypass Screening Social History Tobacco Use Types Packs/Day Years [...] AM EDT documented as of this encounter Miscellaneous Notes * Telephone Encounter - Lisette Sánchez - 09/16/2022 9:32 AM EDT CTGI Procedure Bypass Screening Outcome Rody Sotelo was screened to see if she was eligible for bypassing an office visit ahead of her colonoscopy procedure. The screening was not successful, patient was scheduled for Consult. documented in this encounter Plan of Treatment Upcoming Encounters Date Type Department Care Team (Late st Contact Info) Description 11/13/2023 7:45 AM EDT Office Visit [facility] Medical Oncology at [address] [phone] Ricci Carter MD [address] [place] [address] 11/13/2023 8:30 AM EDT Infusion [facility] Cancer [place] [facility] Infusion Center [address] [phone] Ricci Carter MD [address] [place] [address] Keiko Hallman MD 80 [place] [address] 11/20/2023 11:00 AM EDT Appointment [facility] Radiology [place] Mammography [address] [place] [address] [phone] Ricci Carter MD [address] [place] [address] 11/20/2023 11:30 AM EDT Appointment [facility] Radiology [place] Mammography [address] [place] [phone] Ricci Carter MD [address] [place] [address] 03/05/2024 11:00 AM EST Consult [facility] Cardiology [place] [address] [facility] [address] [place] [address] Ricci Carter MD [address] [place] [address] Jamil Ralph MD [address] [facility] [address] [place], [place] [phone] 05/30/2024 9:00 AM EST Office Visit [facility] Department of Internal Medicine [facility] 1210 [facility] [address] [place] [address] Consuelo Hobbs PA-C 1210 [facility] 109 [place] [address] documented as of this encounter Visit Diagnoses Not on filedocumented in this encounter Care Teams Park Interpretive Specialist Relationship Specialty Start Date End Date Consuelo Hobbs PA-C 1210 [facility] 109 [place] [address] PCP - General 05/01/19 Madi Sharp MD [address] [address] Gastroenterology 10/02/19 documented as of this encounter
--- OUTSIDE RECORDS SUMMARY | 2023-10-29 17:45 | XMS_ITS | Encounter Summary ---
Author Organization [facility] Address [address] [place] [address] Care Team Providers Care Gynaecological Oncologist Name Role Phone Consuelo Hobbs PA-C Primary Care Provider Madi Sharp MD Unavailable [phone] Reason for Visit * Reason Onset Date Comments Medication Refill 10/05/2022 Encounter Details Date Type Department Care Team (Late st Contact Info) Description 10/05/2022 Refill [facility] Department of Internal Medicine & Nephrology [place] [address] [facility] [address] [place] [address] Consuelo Hobbs PA-C 1210 [facility] 109 [place] [address] Migraine with status migrainosus, not intractable, unspecified [...] 11/13/2023 7:45 AM EDT Office Visit [facility] Medical Oncology at [address] [phone] Ricci Carter MD [address] [place] [address] 11/13/2023 8:30 AM EDT Infusion [facility] Cancer [place] at [facility] Outpatient Infusion Center [address] [phone] Ricci Carter MD [address] [place] [address] Keiko Hallman MD 80 [facility] [place] [address] 11/20/2023 11:00 AM EDT Appointment [facility] Radiology [place] Mammography [address] [place] [phone] Ricci Carter MD [address] [place] [address] 11/20/2023 11:30 AM EDT Appointment [facility] Radiology [place] Mammography [address] [place] [phone] Ricci Carter MD [address] [place] [address] 03/05/2024 11:00 AM EST Consult [facility] Cardiology [address] [place] [address] Ricci Carter MD [address] [place] [address] Jamil Ralph MD [address] [place] [facility] [address] [place] [address] 05/30/2024 9:00 AM EST Office Visit [facility] Department of Internal Medicine [facility] [address] [facility] [address] [place] [address] Consuelo Hobbs PA-C 1210 [facility] 109 [place] [address] documented as of this encounter Visit Diagnoses Diagnosis Migraine with status migrainosus, not intractable, unspecified migraine type documented in this encounter Care Teams Gynaecological Oncologist Relationship Specialty Start Date End Date Consuelo Hobbs PA-C [address] [place] [address] 109 [place] [address] PCP - General 05/01/19 Madi Sahrp MD [address] [address] Gastroenterology 10/02/19 documented as of this encounter
--- OUTSIDE RECORDS SUMMARY | 2023-10-29 17:45 | XMS_ITS | Encounter Summary ---
Author Organization [facility] Address [address] [place] [address] Care Team Providers Care Typesetting Machine Operator/Tender Name Role Phone Consuelo Hobbs PA-C Primary Care Provider Madi Sharp MD Unavailable [phone] Encounter Details Date Type Department Care Team (Late st Contact Info) Description 11/07/2022 Orders Only [facility] Medical Oncology at [address] [phone] Lilli Peguero, YASEMIN [address] [place] [address] Social History Tobacco Use Types Packs/Day Years [...] 11/13/2023 7:45 AM EDT Office Visit [facility] Medical Oncology at [address] [phone] Ricci Carter MD [address] [place], [place] [phone] 11/13/2023 8:30 AM EDT Infusion [facility] Cancer [place] at [facility] Outpatient Infusion Center [address] [phone] Ricci Carter MD [address] [place] [phone] Keiko Hallman MD 80 [facility] [place] [address] 11/20/2023 11:00 AM EDT Appointment [facility] Radiology [place] Mammography [address] [place] [phone] Ricci Carter MD [address] [place], [place] [id number] 11/20/2023 11:30 AM EDT Appointment [facility] Radiology [place] Mammography [address] [place] [phone] Ricci Carter MD [address] [place] [phone] 03/05/2024 11:00 AM EST Consult [facility] Cardiology [address] [place] [address] [place] [address] Ricci Carter MD [address] [place], [place] [phone] Jamil Ralph MD [address] [facility] [address] [place] [address] 05/30/2024 9:00 AM EST Office Visit [facility] Department of Internal [facility] 1210 [facility] [address] [place] [address] Consuelo Hobbs PA-C 1210 [facility] 109 [place], [place] [phone] documented as of this encounter Visit Diagnoses Not on filedocumented in this encounter Care Teams Typesetting Machine Operator/Tender Relationship Specialty Start Date End Date Consuelo Hobbs PA-C [address] [place] [address] PCP - General 05/01/19 Madi Sharp MD [address] [place] [address] Gastroenterology 10/02/19 documented as of this encounter
--- OUTSIDE RECORDS SUMMARY | 2023-10-29 17:45 | XMS_ITS | Encounter Summary ---
Author Organization [facility] Address [address] [place] [address] Care Team Providers Care Oliver Filter Operator Name Role Phone Consuelo Hobbs PA-C Primary Care Provider Madi Sharp MD Unavailable [phone] Reason for Visit * Reason Comments Recall Encounter Details Date Type Department Care Team (Late st Contact Info) Description 08/18/2022 Telephone [facility] 30 [place] [phone] Gavino Castelan [address] [place] [phone] Recall Social History Tobacco Use Types Packs/Day Years [...] encounter Miscellaneous Notes * Telephone Encounter - Gavino Castelan - 09/12/2022 8:49 AM EDT Second call attempted to schedule recall, no answer lvm to callback * Telephone Encounter - Julia Finley - 09/08/2022 9:56 AM EDT Patient returned your call in regards to booking her Colon recall procedure. Patient will not be available today, she asked if she can get a call back tomorrow morning before 9 am, due to her work schedule. Thank you. * Telephone Encounter - Gavino Castelan - 08/18/2022 3:02 PM EDT Called patient to schedule recall Colon with . No answer lvm to callback CR documented in this encounter Plan of Treatment Upcoming Encounters Date Type Department Care Team (Late st Contact Info) Description 11/13/2023 7:45 AM EDT Office Visit [facility] Medical Oncology at [address] [phone] Ricci Carter MD [address] [place] [address] 11/13/2023 8:30 AM EDT Infusion [facility] Cancer [place] [facility] Out[facility] Infusion Center [address] [phone] Ricci Carter MD [address] [place] [address] Keiko Hallman MD 80 [facility] [place] [address] 11/20/2023 11:00 AM EDT Appointment [facility] Radiology [place] Mammography [address] [place] [phone] Ricci Carter MD [address] [place] [address] 11/20/2023 11:30 AM EDT Appointment [facility] Radiology [place] Mammography [address] [place] [phone] Ricci Carter MD [address] [place], [place] [phone] 03/05/2024 11:00 AM EST Consult [facility] Cardiology [address] [place] [phone] Ricic Carter MD [address] [place] [address] Jamil Ralph MD [address] [place] [facility] [address] [place] [address] 05/30/2024 9:00 AM EST Office Visit [facility] Department of Internal Medicine [facility] 1210 [facility] [address] [place], [place] [phone] Consuelo Hobbs PA-C 1210 [facility] [address] [place], [place] [phone] documented as of this encounter Visit Diagnoses Not on filedocumented in this encounter Care Teams Oliver Filter Operator Relationship Specialty Start Date End Date Consuelo Hobbs PA-C 1210 [facility] [address] [place], [place] [phone] PCP - General 05/01/19 Madi Sharp MD [address] [address] Gastroenterology 10/02/19 documented as of this encounter
--- OUTSIDE RECORDS SUMMARY | 2023-10-29 17:45 | XMS_ITS | Encounter Summary ---
Author Organization [facility] Address [address] [place] [address] Care Team Providers Care Integrity Director Name Role Phone Consuelo Hobbs PA-C Primary Care Provider Madi Sharp MD Unavailable [phone] Encounter Details Date Type Department Care Team (Late st Contact Info) Description 11/25/2022 Scanned Document [facility] [address] [facility] [place] [address] Madi Sharp MD [address] [place], [place] [phone] Social History Tobacco Use Types Packs/Day Years [...] Description 11/13/2023 7:45 AM EDT Office Visit [facility] Cancer [place] Medical Oncology at [address] [phone] Ricci Carter MD [address] [place] [address] 11/13/2023 8:30 AM EDT Infusion [facility] Cancer [place] at [facility] Outpatient Infusion Center [address] [phone] Ricci Carter MD [address] [place] [phone] Keiko Hallman MD 80 [facility] [place] [address] 11/20/2023 11:00 AM EDT Appointment [facility] Radiology [place] Mammography [address] [place] [phone] Ricci Carter MD [address] [place] [address] 11/20/2023 11:30 AM EDT Appointment [facility] Radiology [place] Mammography 35 [place] [phone] Ricci Carter MD [address] [place] [address] 03/05/2024 11:00 AM EST Consult [facility] Cardiology [place] [address] [facility] [address] [place] [phone] Ricci Carter MD [address] [place] [address] Jamil Ralph MD [address] [facility] [address] [place], [place] [address] 05/30/2024 9:00 AM EST Office Visit [facility] Department of Internal Medicine [facility] [address] [phone] Consuelo Hobbs PA-C [address] [phone] documented as of this encounter Visit Diagnoses Not on filedocumented in this encounter Care Teams Integrity Director Relationship Specialty Start Date End Date Consuelo Hobbs PA-C [address] [place] [phone] PCP - General 05/01/19 Madi Sharp MD [address] [place] [address] Gastroenterology 10/02/19 documented as of this encounter
--- OUTSIDE RECORDS SUMMARY | 2023-10-29 17:45 | XMS_ITS | Encounter Summary ---
Author Organization [facility] Address [address] [place] [address] Care Team Providers Care Cat Tender Name Role Phone Consuelo Hobbs PA-C Primary Care Provider Madi Sharp MD Unavailable [phone] Encounter Details Date Type Department Care Team (Late st Contact Info) Description 12/20/[address] [facility] Medical Oncology at [address] [phone] Niki Giron, MAYA [address] [place] [address] Carcinoid tumor of ileum, unspecified whether malignant; Diarrhea, unspecified type Social History Tobacco Use Types [...] [facility] at [address] [phone] Ricci Carter MD [address] [place], [place] [phone] 11/13/2023 8:30 AM EDT Infusion [facility] Cancer [place] at [facility] Outpatient Infusion Center [address] [phone] Ricci Carter MD [address] [place], [place] [phone] Keiko Hallman MD 80 [facility] [place] [address] 11/20/2023 11:00 AM EDT Appointment [facility] Radiology [place] Mammography [address] [place] [address] [phone] Ricci Carter MD [address] [place], [place] [phone] 11/20/2023 11:30 AM EDT Appointment [facility] Radiology [place] Mammography [address] [place] [address] [phone] Ricci Carter MD [address] [place], [place] [phone] 03/05/2024 11:00 AM EST Consult [facility] Cardiology [address] [place] [address] Ricci Carter MD [address] [place], [place] [phone] Jamil Ralph MD [address] [place] [address] 05/30/2024 9:00 AM EST Office Visit [facility] Department of Internal Medicine [facility] 1210 [facility] 109 [place] [address] Consuelo Hobbs PA-C [address] [phone] documented as of this encounter Visit Diagnoses Diagnosis Carcinoid tumor of ileum, unspecified whether malignant (HCC) Diarrhea, unspecified type documented in this encounter Care Teams Cat Tender Relationship Specialty Start Date End Date Consuelo Hobbs PA-C [address] [place] [address] PCP - General 05/01/19 Madi Sharp MD [address] [address] Gastroenterology 10/02/19 documented as of this encounter
--- OUTSIDE RECORDS SUMMARY | 2023-10-29 17:45 | XMS_ITS | Encounter Summary ---
Author Organization [facility] Address [address] [place] [address] Care Team Providers Care Culinary Chef Name Role Phone Consuelo Hobbs PA-C Primary Care Provider Madi Sharp MD Unavailable [phone] Reason for Visit * Episode Based Medications (Routine) - Authorized Specialty Diagnoses / Procedures Referred By Contac t Referred To Contact Diagnoses Carcinoid tumor of ileum, unspecified whether malignant (HCC) Keiko Hallman MD 80 [facility] [place] [address] Med [address] [phone] Referral ID Status Reason Start Date Expiration Date V isits Requested Visits Authorized [id number] Authorized 04/29/2022 11/27/2023 5 2 Encounter Details Date Type Department Care Team (Late st Contact Info) Description 11/29/2022 8:30 AM EDT Infusion [facility] Cancer [place] at [facility] Outpatient Infusion Center [address] [phone] Ricci Carter MD [address] [place] [address] Keiko Hallman MD [address] [place] [address] Oncology [place], [place] Sienna Alaniz RN 80 [place] [address] Carcinoid tumor of ileum, unspecified whether malignant [...] Description 11/13/2023 7:45 AM EDT Office Visit [facility] Medical Oncology at [address] [phone] Ricci Carter MD [address] [place] [address] 11/13/2023 8:30 AM EDT Infusion [facility] Cancer [place] at [facility] Outpatient Infusion Center [address] [phone] Ricci Carter MD [address] [place] [address] Keiko Hallman MD [address] [place] [address] [place] [address] 11/20/2023 11:00 AM EDT Appointment [facility] Radiology [address] [place] [phone] Ricci Carter MD 85 [place] [phone] 11/20/2023 11:30 AM EDT Appointment [facility] Radiology [place] Mammography 35 [place] [phone] Ricci Carter MD 85 [place] [phone] 03/05/2024 11:00 AM EST Consult [facility] Cardiology [address] [place] [phone] Ricci Carter MD [address] [place], [place] [phone] Jamil Ralph MD [address] [place] [facility] [address] [place] [address] 05/30/2024 9:00 AM EST Office Visit [facility] Department of Internal Medicine [facility] 1210 [facility] [address] [place], [place] [phone] Consuelo Hobbs PA-C 1210 [facility] [address] [place] [address] documented as of this encounter Visit Diagnoses Diagnosis Carcinoid tumor of ileum, unspecified whether malignant (HCC)- Primary documented in this encounter Administered Medications Inactive Administered Medications - up to 1 most recent administrations Medication Order MAR Action Action Date Dose Rate Site octreotide (SandoSTATIN LAR) IM injection 40 mg 40 mg, Intramuscular, Once, On Mon11/29/22 at 0930, For 1 dose, Administer IM intragluteal (avoid deltoid administration). For intraMUSCULAR use ONLY. Must be administered immediately after mixing. Given 11/29/2022 8:56 AM EDT 40 mg Left Gluteal Upper Outer Quadrant documented in this encounter Care Teams Culinary Chef Relationship Specialty Start Date End Date Consuelo Hobbs PA-C 1210 [facility] 109 [place] [address] PCP - General 05/01/19 Madi Sharp MD [address] [place] [address] Gastroenterology 10/02/19 documented as of this encounter
--- OUTSIDE RECORDS SUMMARY | 2023-10-29 17:45 | XMS_ITS | Encounter Summary ---
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 The indications, prep, alternatives and the procedure were thoroughly explained. There is no contraindication to colonoscopy. All questions were answered. The potential risks including but not limited to bleeding, infection, and perforation were also explained. Colonoscopy to be scheduled. History of gastric metaplasia Congratulated on quitting smoking! Continue PPI, H2 Limit ETOH Recall EGD in place for 04/2024 Orders Placed This Encounter ??? Colonoscopy No problem-specific Assessment & Plan notes found for this encounter. Total Time Spent on Day of Service: 30 min minutes No LOS data to display During this visit, the time spent included the following: Examining the patient Chart review in preparation for the visit Documenting in the patient record Reviewing Labs & Radiology Medication Reconciliation Patient education Date of Labs / Imaging Reviewed: Giulia Cuidaphne Sotelo is a 52 y.o. 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 Last colonoscopy 2019, normal She is s/p CCY Since surgery has had diarrhea Takes octreotide and creon colestipol and up to 32 mg immodium No blood or black stool EGD 04/2021 with gastric metaplasia. Some abdominal pain- dull constant, worse if over eats or drinks too much ETOH -has improved over the past two months Quit smoking 1 day after her endoscopy Cut back on ETOH Takes daily famoitidne, prilosec daily Gained 45 lbs No consistent reflux Review of Systems Constitutional: Negative for decreased appetite, fever, night sweats and weight loss. Weight gain HENT: Negative for hoarse voice. Respiratory: Negative for difficulty breathing. Cardiovascular: Negative for chest pain and palpitations. Gastrointestinal: Positive for abdominal pain and diarrhea. Negative for bloating, blood in stool, change in bowel habit, constipation, flatus, heartburn, black stool, nausea, vomiting, food intolerance, early satiety, painful bowel movement, difficulty eating/swallowing and belching. Neurological: Negative for weakness. Objective Vitals: 10/05/22 1015 BP: 120/60 Pulse: 72 Weight: 75.8 kg (167 lb) Height: 1.6 m (5' 3) Body mass index is 29.58 kg/m??. Physical Exam Constitutional: Appearance: She is well-developed. HENT: Head: Normocephalic. Cardiovascular: Rate and Rhythm: Normal rate and regular rhythm. Heart sounds: Normal heart sounds. Pulmonary: Effort: Pulmonary effort is normal. Breath sounds: Normal breath sounds. Abdominal: General: Abdomen is flat. Bowel sounds are normal. Palpations: Abdomen is soft. Skin: General: Skin is warm and dry. Neurological: Mental Status: She is alert. Allergies Allergen Reactions ??? Levaquin [Levofloxacin] Myalgia/Myositis/Arthralgia/Arthritis ??? Cefaclor GI Intolerance/Nausea/Vomiting ??? Erythromycin GI Intolerance/Nausea/Vomiting ??? busPIRone (BUSPAR) 10 MG tablet Take 1 tablet (10 mg total) by mouth nightly. ??? calcium carbonate (OS-ANGELICA) 600 MG tablet Take 1 tablet (600 mg total) by mouth every morning with breakfast. ??? Cannabis (MARIJUANA) Misc Medical Prescription Strength as needed. ??? colestipol (COLESTID) 1 g tablet Take 2 tablets (2 g total) by mouth 2 (two) times a day. With a large glass of water. ??? ergotamine-caffeine (CAFERGOT) 1-100 MG per tablet TAKE 1 TABLET BY MOUTH TWICE DAILY NEEDED ??? famotidine (PEPCID) 40 MG tablet Take 1 tablet (40 mg total) by mouth daily. ??? granisetron (KYTRIL) 1 MG tablet Take 2 tablets (2 mg total) by mouth daily. ??? loperamide (IMODIUM A-D) 2 MG capsule Take 1 capsule (2 mg total) by mouth 4 (four) times a dayas needed for diarrhea. ??? Multiple Vitamins-Minerals (Multi Complete) Cap Take 1 capsule by mouth See Admin Instructions. ??? pancrelipase, Ptn-Izqg-Rcqp, (Creon) [address]41-747773 units Cap DR Particles capsule Take 1 capsule(36,000 units of lipase total) by mouth 3 (three) times a day with meals. Dose is in units of lipase. ??? rizatriptan (MAXALT-PARTNER MANAGER) 10 MG disintegrating tablet DISSOLVE 1 TABLET ON THE TONGUE EVERY DAY NEEDED ??? vitamin D3 (CHOLECALCIFEROL) 1.25 MG (74200 UT) tablet Take 1 tablet (50,000 Units total) by mouth once a week. Recent Labs and Tests Lab Results Component Value Date WBC 7.1 09/27/2022 HGB 11.1 (L) 09/27/2022 HCT 35.7 09/27/2022 MCV 85 09/27/2022 PLT 250 09/27/2022 Lab Results Component Value Date GLUC 84 09/27/2022 CALCIUM 8.7 09/27/2022 NA 137 09/27/2022 K 4.1 09/27/2022 CO2 26 09/27/2022 CL 103 09/27/2022 BUN 10 09/27/2022 CREAT 0.77 09/27/2022 Lab Results Component Value Date ALT 30 (H) 09/27/2022 AST 28 09/27/2022 ALKPHOS 71 09/27/2022 BILITOT 0.3 09/27/2022 ALBUMIN 4.1 09/27/2022 No results found for: INR, PROTIME No results found for: LIPASE No results found for: AMYLASE Imaging No results found. Histories Past Medical History: Diagnosis Date ??? Abdominal [...] ENDOSCOPY UPPER; Surgeon: Madi Sharp MD; Location: [facility]; Service: Gastroenterology; Laterality: N/A; ??? HEMICOLECTOMY Right ??? TONSILECTOMY, ADENOIDECTOMY, BILATERAL MYRINGOTOMY AND TUBES Social History Tobacco Use ??? Smoking status: Former Packs/day: 0.25 Years: 22.00 Pack years: 5.50 Types: Cigarettes Quit date: 05/17/2021 Years since quittin.3 ??? Smokeless tobacco: Never Vaping Use ??? Vaping Use: Never used Substance Use Topics ??? Alcohol use: Not Currently ??? Drug use: Yes Types: Marijuana Family History Problem Relation Age of Onset ??? Heart disease Father ??? Hypertension Father ??? Alcohol abuse Father ??? Mental illness Father ??? Heart attack Father ??? Hypertension Mother ??? Irritable bowel syndrome Mother ??? Mental illness Mother ??? Hypertension Brother ??? Mental illness Maternal Aunt ??? Tuberculosis Maternal Grandfather GI Procedural History History question Answer Diagnosis Date Comment Endoscopy See Comments ENDOSCOPY ENDOSCOPY UPPER 04/22/2021 Preliminary Information: Procedure: ENDOSCOPY UPPER; Surgeon: Madi Sharp MD; Location: [facility]; Service: Gastroenterology; Laterality: N/A; All relevant data including labs, xrays, diagnositic studies, physician notes, and referral notes were reviewed Associated attestation - Madi Sharp MD - 10/06/2022 6:22 PM EDT Agree with assessment and plan as above. Madi Sharp MD documented in this encounter Plan of Treatment Upcoming Encounters Date Type Department Care Team (Late st Contact Info) Description 11/13/2023 7:45 AM EDT Office Visit [facility] Medical Oncology at [address] [phone] Ricci Carter MD [address] [place] [address] 11/13/2023 8:30 AM EDT Infusion [facility] Cancer [place] at [facility]fusion [facility] [address] [phone] Ricic Carter MD [address] [place] [address] Keiko Hallman MD [address] [facility] [place] [address] 11/20/2023 11:00 AM EDT Appointment [facility] Radiology [facility] [address] [place] [phone] Ricci Carter MD [address] [place] [address] 11/20/2023 11:30 AM EDT Appointment [facility] Radiology [facility] [address] [place] [phone] Ricci Carter MD [address] [place] [address] 03/05/2024 11:00 AM EST Consult [facility] Cardiology [address] [place] [address] Ricci Carter MD [address] [place] [address] Jamil Ralph MD [address] [facility] [address] [place] [address] 05/30/2024 9:00 AM EST Office Visit [facility] Department of Internal Medicine [facility] 1210 [facility] 109 [place] [address] Consuelo Hobbs PA-C [address] [address] documented as of this encounter Visit Diagnoses Diagnosis 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
--- OUTSIDE RECORDS SUMMARY | 2023-10-29 17:45 | XMS_ITS | Encounter Summary ---
Author Organization [facility] Address [address] [place] [address] Care Team Providers Care Solderer Torch Name Role Phone Consuelo Hobbs PA-C Primary Care Provider Madi Sharp MD Unavailable [phone] Reason for Visit * Reason Onset Date Comments Medication Refill 10/05/2022 Encounter Details Date Type Department Care Team (Late st Contact Info) Description 10/05/2022 Refill [facility] Cancer [place] Medical Oncology at [address] [phone] Ricci Carter MD [address] [place] [address] Carcinoid tumor of ileum Social History Tobacco Use Types Packs/Day Years [...] Description 11/13/2023 7:45 AM EDT Office Visit [facility] Medical Oncology at [address] [phone] Rcici Carter MD [address] [place] [address] 11/13/2023 8:30 AM EDT Infusion [facility] Cancer [place] at [facility] Out[facility] Infusion Center [address] [phone] Ricci Carter MD [address] [place], [place] [phone] Keiko Hallman MD 80 [facility] [place] [address] 11/20/2023 11:00 AM EDT Appointment [facility] Radiology [facility] [address] [place] [phone] Ricci Carter MD [address] [place], [place] [phone] 11/20/2023 11:30 AM EDT Appointment [facility] Radiology [facility] [address] [place] [phone] Ricci Carter MD [address] [place], [place] [phone] 03/05/2024 11:00 AM EST Consult [facility] Cardiology [address] [phone] Ricci Carter MD [address] [place] [address] Jamil Ralph MD [address] [place] [address] 05/30/2024 9:00 AM EST Office Visit [facility] Department of Internal Medicine 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
--- OUTSIDE RECORDS SUMMARY | 2023-10-29 17:45 | XMS_ITS | Encounter Summary ---
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); Vitamin D deficiency Social History Tobacco Use Types Packs/Day Years [...] Description 11/13/2023 7:45 AM EDT Office Visit [facility] Medical Oncology at [address] [phone] Ricci Carter MD [address] [place] [address] 11/13/2023 8:30 AM EDT Infusion [facility] Cancer [place] at [facility] Outpatient Infusion Center [address] [phone] Ricci Carter MD [address] [place], [place] [phone] Keiko Hallman MD 80 [facility] [place] [address] 11/20/2023 11:00 AM EDT Appointment [facility] Radiology [facility] [address] [place] [phone] Ricci Carter MD [address] [place], [place] [phone] 11/20/2023 11:30 AM EDT Appointment [facility] Radiology [facility] [address] [place] [phone] Ricci Carter MD [address] [place], [place] [phone] 03/05/2024 11:00 AM EST Consult [facility] Cardiology [address] [phone] Ricci Carter MD [address] [place] [address] Jamil Ralph MD [address] [place] [address] 05/30/2024 9:00 AM EST Office Visit [facility] Department of Internal Medicine [facility] 1210 [facility] [address] [place] [address] Consuelo Hobbs PA-C [facility] [facility] [address] [place] [address] documented as of this encounter Procedures Procedure Name Priority Date/Time Associated Diagnosis Comments CHROMOGRANIN A, LC/MS/MS Routine 10/07/2022 6:04 PM EDT POCT CBC WITH DIFFERENTIAL (NO BILL-REPORTABLE ONLY 3 PART)(ONCOLOGY-INTERFA CHARLIE) Routine 09/27/2022 9:20 AM EDT CHROMOGRANIN A, LC/MS/MS Routine 09/27/2022 9:17 AM EDT Malignant carcinoid tumor of ileum (HCC) Vitamin D deficiency COMPREHENSIVE METABOLIC PANEL Routine 09/27/2022 9:17 AM EDT Malignant carcinoid tumor of ileum (HCC) Vitamin D deficiency documented in this encounter Results * (ABNORMAL) Chromogranin A, LC/MS/MS (10/07/2022 6:04 PM EDT) Chromogranin A, LC/MS/MS 680(H) ADULTS: <311 ng/mL [facility], Comment: The sample type for this test was serum. Interpretation of patient results may be affected by a variety of conditions such as hypertension, gastritis, prostate cancer, hyperparathyroidism, and most commonly renal disease and use of proton pump inhibitors (PPIs). (Noreen Barbosa et al. Chromogranin A measurement in metastatic [...] analytical performance characteristics have been determined by [employer] [facility]. It has not been cleared or approved by FDA. This assay has been validated pursuant to the CLIA regulations and is used for clinical purposes. NO COLLECTION DATE RECEIVED. WE HAVE USED THE DATE THE SPECIMEN WAS RECEIVED BY THIS LABORATORY THE COLLECTION DATE. IF THIS IS INCORRECT, PLEASE CONTACT CLIENT SERVICES. PHONE NUMBER: 09/30/2022 12: 50 AM EDT [facility] - 10/07/2022 6:04 PM EDT FASTING: UNKNOWN Ricci Carter MD LAB BLOOD ORDERABLES JO ANN [employer], [address] [place] [address] * (ABNORMAL) POCT CBC with Differential (09/27/2022 9:20 AM EDT) White Blood Cell Count 7.1 4.0 - 11.0 Thou/uL 09/27/2022 2:11 PM EDT [facility] Red Blood Cell Count 4.18 4.00 - 5.40 Mil/uL 09/27/2022 2:11 PM EDT [facility] Hemoglobin 11.1(L) 11.7 - 15.7 g/dL 09/27/2022 2:11 PM EDT [facility] Hematocrit 35.7 35.0 - 47.0 % 09/27/2022 2:11 PM EDT [facility] MCV 85 80 - 100 fL 09/27/2022 2:11 PM EDT [facility] MCH 26.6(L) 27.0 - 31.0 pg 09/27/2022 2:11 PM EDT [facility] MCHC 31.1 30.0 - 36.0 g/dL 09/27/2022 2:11 PM EDT [facility] RDW 15.2(H) 11.5 - 14.5 % 09/27/2022 2:11 PM EDT [facility] Platelet Count 250 150 - 450 Thou/uL 09/27/2022 2:11 PM EDT [facility] MPV 9.9 9.4 - 12.5 fL 09/27/2022 2:11 PM EDT [facility] Neutrophils Auto 37.5 % 09/28/19 2:11 PM EDT [facility] Abs Neutrophils Auto 2.70 2.00 - 7.50 Thou/uL 09/27/2022 2:11 PM EDT [facility] Lymphocytes Auto 58.4 % 09/28/19 2:11 PM EDT [facility] Abs Lymphocytes Auto 4.10 1.50 - 4.50 Thou/uL 09/27/2022 2:11 PM EDT [facility] Mixed Mononuclear Auto 4.1 % 09/27/2022 2:11 PM EDT [facility] Abs Mixed Mononuclear Auto <1.00 0.20 - 1.90 Thou/uL 09/27/2022 2:11 PM EDT [facility] Blood specimen / Unknown 09/27/2022 9:20 AM EDT 09/27/2022 2:11 PM EDT Generic Provider POCT ORDERABLES - [facility] See Below [address] [place] [address] * Chromogranin A, LC/MS/MS (09/27/2022 9:17 AM EDT) Pathologist [facility] Chromogranin A, LC/MS/MS TNP [facility], Comment: TEST NOT PERFORMED SST (serum separator tube) is not an acceptable specimen for this test. Resubmit serum from a plain red-top tube. 09/27/2022 9:17 AM EDT 09/27/2022 4:38 PM EDT Ricci Carter MD LAB BLOOD ORDERABLES JO ANN [employer], [address] [place] [address] * (ABNORMAL) Comprehensive Metabolic Panel (09/27/2022 9:17 AM EDT) Pathologist [facility] Glucose 84 65 - 99 mg/dL [employer] Comment: ? Fasting reference interval Blood Urea Nitrogen (BUN) 10 7 - 25 mg/dL [employer] Creatinine 0.77 0.50 - 1.03 mg/dL [employer] Creatinine w/ eGFR 94 > OR = 60 mL/min/1 .73m2 [employer] Comment: The eGFR is based on the CKD-EPI 2020 equation. To calculate the new eGFR from a previous Creatinine or Cystatin C result, go to https://www.kidney.org/professionals/ kdoqi/gfr%5Fcalculator BUN/Creatinine Ratio NOT APPLICABLE 6 - 22 (calc) [employer] Sodium 137 135 - 146 mmol/L [employer] Potassium 4.1 3.5 - 5.3 mmol/L [employer] Chloride 103 98 - 110 mmol/L [employer] CO2 26 20 - 32 mmol/L [employer] Calcium 8.7 8.6 - 10.4 mg/dL [employer] Protein, Total 6.6 6.1 - 8.1 g/dL [employer] Albumin 4.1 3.6 - 5.1 g/dL [employer] Globulin 2.5 1.9 - 3.7 g/dL (calc) [employer] Albumin/Globuli n Ratio 1.6 1.0 - 2.5 (calc) [employer] Bilirubin, Total 0.3 0.2 - 1.2 mg/dL [employer] Alkaline Phosphatase 71 37 - 153 U/L [employer] Aspartate Aminotrans (AST) 28 10 - 35 U/L [employer] Alanine Aminotrans (ALT) 30(H) 6 - 29 U/L [employer] Blood specimen (specimen) Blood specimen / Unknown 09/27/2022 9:17 AM EDT 09/27/2022 4:38 PM EDT Ricci Carter MD LAB BLOOD ORDERABLES Performing Organization Address City/State/[facility] Co de Phone Number [employer] [address] [place] [phone] documented in this encounter Visit Diagnoses Diagnosis 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
--- OUTSIDE RECORDS SUMMARY | 2023-10-29 17:45 | XMS_ITS | Encounter Summary ---
Author Organization [facility] Address [address] [place] [address] Care Team Providers Care Sand Blaster Name Role Phone Consuelo Hobbs PA-C Primary Care Provider Madi Sharp MD Unavailable [phone] Encounter Details Date Type Department Care Team (Latest Contact Info) Description 11/22/2022 Travel Social History Tobacco Use Types Packs/Day [...] 7:45 AM EDT Office Visit [facility] Medical Oncology at [address] [phone] Ricci Carter MD [address] [place] [address] 11/13/2023 8:30 AM EDT Infusion [facility] Cancer [place] at [facility] Outpatient Infusion [facility] [place] [address] [place] [phone] Ricci Carter MD [address] [place], [place] [phone] Keiko Hallman MD 80 [facility] [place] [address] 11/20/2023 11:00 AM EDT Appointment [facility] Radiology [facility] [address] [place] [phone] Ricci Carter MD [address] [place], [place] [phone] 11/20/2023 11:30 AM EDT Appointment [facility] Radiology [facility] [address] [place] [phone] Ricci Carter MD [address] [place], [place] [phone] 03/05/2024 11:00 AM EST Consult [facility] Cardiology [address] [place] [phone] Ricci Carter MD [address] [place], [place] [phone] Jamil Ralph MD [address] [facility] [address] [place], [place] [phone] 05/30/2024 9:00 AM EST Office Visit [facility] Department of Internal Medicine [address] [place] [address] Consuelo Hobbs PA-C [address] [address] documented as of this encounter Visit Diagnoses Not on filedocumented in this encounter Care Teams Sand Blaster Relationship Specialty Start Date End Date Consuelo Hobbs PA-C [address] [phone] PCP - General 05/01/19 Madi Sharp MD [address] [place] [address] Gastroenterology 10/02/19 documented as of this encounter
--- OUTSIDE RECORDS SUMMARY | 2023-10-29 17:45 | XMS_ITS | Encounter Summary ---
Author Organization [facility] Address [address] [place] [address] Care Team Providers Care Manager Fine Dining Name Role Phone Consuelo Hobbs PA-C Primary Care Provider Madi Sharp MD Unavailable [phone] Encounter Details Date Type Department Care Team (Late st Contact Info) Description 12/14/2022 Orders Only [facility] Medical Oncology at [address] [phone] Yesica Blanco RN [address] [place] [address] Vitamin D deficiency Social History Tobacco Use [...] Visit [facility] Medical Oncology at [address] [phone] Ricci Carter MD [address] [place], [place] [phone] 11/13/2023 8:30 AM EDT Infusion [facility] Cancer [place] at [facility] [address] [phone] Ricci Carter MD [address] [place], [place] [phone] Keiko Hallman MD 80 [facility] [place] [address] 11/20/2023 11:00 AM EDT Appointment [facility] Radiology [facility] [address] [place] [address] [phone] Ricci Carter MD [address] [place], [place] [phone] 11/20/2023 11:30 AM EDT Appointment [facility] Radiology [facility] [address] [place] [phone] Ricci Carter MD [address] [place] [id number] 03/05/2024 11:00 AM EST Consult [facility] Cardiology [address] [place] [address] Ricci Carter MD [address] [place], [place] [phone] Jamil Ralph MD [address] [place] [address] 05/30/2024 9:00 AM EST Office Visit [facility] Department of Internal Medicine [facility] 1210 [facility] [address] [place] [address] Consuelo Hobbs PA-C [address] [address] documented as of this encounter Visit Diagnoses Diagnosis Vitamin D deficiency documented in this encounter Care Teams Manager Fine Dining Relationship Specialty Start Date End Date Consuelo oHbbs PA-C [address] [place] [address] PCP - General 05/01/19 Madi Sharp MD [address] [place] [address] Gastroenterology 10/02/19 documented as of this encounter
--- OUTSIDE RECORDS SUMMARY | 2023-10-29 17:45 | XMS_ITS | Encounter Summary ---
Author Organization [facility] Address [address] [place] [address] Care Team Providers Care Progress Clerk Name Role Phone Consuelo Hobbs PA-C Primary Care Provider Madi Sharp MD Unavailable [phone] Encounter Details Date Type Department Care Team (Latest Contact Info) Description 09/06/2022 Travel Social History Tobacco Use Types Packs/Day [...] 11/13/2023 7:45 AM EDT Office Visit [facility] Cancer [place] Medical Oncology at [address] [phone] Ricci Carter MD [address] [place] [address] 11/13/2023 8:30 AM EDT Infusion [facility] Cancer [place] at [facility] Outpatient Infusion Center [place] [address] [place] [address] Ricci Carter MD [address] [place] [address] Keiko Hallman MD 80 [facility] [place] [address] 11/20/2023 11:00 AM EDT Appointment [facility] Radiology [facility] [address] [place] [phone] Ricci Carter MD [address] [place] [address] 11/20/2023 11:30 AM EDT Appointment [facility] Radiology [facility] [address] [place] [phone] Ricci Carter MD [address] [place] [address] 03/05/2024 11:00 AM EST Consult [facility] Cardiology [place] [address] [facility] [address] [place] [phone] Ricci Carter MD [address] [place] [address] Jamil Ralph MD [address] [facility] [address] [place] [address] 05/30/2024 9:00 AM EST Office Visit [facility] Department of Internal Medicine [facility] [address] [phone] Consuelo Hobbs PA-C [address] [phone] documented as of this encounter Visit Diagnoses Not on filedocumented in this encounter Care Teams Progress Clerk Relationship Specialty Start Date End Date Consuelo Hobbs PA-C [address] [phone] PCP - General 05/01/19 Madi Sharp MD [address] [place] [address] Gastroenterology 10/02/19 documented as of this encounter
--- OUTSIDE RECORDS SUMMARY | 2023-10-29 17:45 | XMS_ITS | Encounter Summary ---
Author Organization [facility] Address [address] [place] [address] Care Team Providers Care Global Sourcing Manager Name Role Phone Consuelo Hobbs PA-C Primary Care Provider Madi Sharp MD Unavailable [phone] Reason for Visit * Reason Comments Injections * Episode Based Medications (Routine) - Authorized Specialty Diagnoses / Procedures Referred By Contbalbir t Referred To Contact Diagnoses Carcinoid tumor of ileum, unspecified whether malignant (HCC) Keiko Hallman MD 80 [facility] [place] [address] [address] [phone] Referral ID Status Reason Start Date Expiration Date V isits Requested Visits Authorized [id number] Authorized 04/29/2022 11/27/2023 5 2 Encounter Details Date Type Department Care Team (Late st Contact Info) Description 09/06/2022 8:30 AM EDT Infusion [facility] Cancer [place] at [facility] Outpatient Infusion Center [address] [phone] Ricci Carter MD [address] [place] [address] Keiko Hallman MD [address] [place] [address] [place] [address] Brittany Goins, RN [address] [place] [address] Carcinoid tumor of ileum, unspecified whether malignant [...] 11/13/2023 7:45 AM EDT Office Visit [facility] Medical Oncology at [address] [phone] Ricci Carter MD [address] [place] [address] 11/13/2023 8:30 AM EDT Infusion [facility] Cancer [place] at [facility] Outpatient Infusion Center [address] [phone] Ricci Carter MD [address] [place] [address] Keiko Hallman MD [address] [place] [address] [place] [address] 11/20/2023 11:00 AM EDT Appointment [facility] Radiology [facility] [address] [place] [phone] Ricci Carter MD [address] [place], [place] [phone] 11/20/2023 11:30 AM EDT Appointment [facility] Radiology [place] [facility] [address] [place] [address] [phone] Ricci Carter MD [address] [place], [place] [phone] 03/05/2024 11:00 AM EST Consult [facility] Cardiology [address] [place] [phone] Ricci Carter MD [address] [place], [place] [phone] Jamil Ralph MD [address] [place] [facility] [address] [place] [address] 05/30/2024 9:00 AM EST Office Visit [facility] Department of Internal Medicine [facility] 1210 [facility] [address] [place], [place] [phone] Consuelo Hobbs PA-C 1210 [facility] [address] [place], [place] [phone] documented as of this encounter Visit Diagnoses Diagnosis Carcinoid tumor of ileum, unspecified whether malignant (HCC)- Primary documented in this encounter Administered Medications Inactive Administered Medications - up to 1 most recent administrations Medication Order MAR Action Action Date Dose Rate Site octreotide (SandoSTATIN LAR) IM injection 40 mg 40 mg, Intramuscular, Once, On Mon09/06/22 at 0930, For 1 dose, Administer IM intragluteal (avoid deltoid administration). For intraMUSCULAR use ONLY. Must be administered immediately after mixing. Given 09/06/2022 8:51 AM EDT 40 mg Other (See Comments) documented in this encounter Care Teams Global Sourcing Manager Relationship Specialty Start Date End Date Consuelo Hobbs PA-C [facility] [address] [address] PCP - General 05/01/19 Madi Sharp MD [address] [place] [address] Gastroenterology 10/02/19 documented as of this encounter
--- OUTSIDE RECORDS SUMMARY | 2023-10-29 17:45 | XMS_ITS | Encounter Summary ---
Author Organization [facility] Address [address] [place] [address] Care Team Providers Care 911 Emergency Dispatcher Name Role Phone Consuelo Hobbs PA-C Primary Care Provider Madi Sharp MD Unavailable [phone] Encounter Details Date Type Department Care Team (Latest Contact Info) Description 11/10/2022 Travel Social History Tobacco Use Types Packs/Day [...] Description 11/13/2023 7:45 AM EDT Office Visit [facility] Medical Oncology at [address] [phone] Ricci Carter MD [address] [place] [address] 11/13/2023 8:30 AM EDT Infusion [facility] Cancer [place] at [facility] Outpatient Infusion Center [place] [address] [place] [phone] Ricci Carter MD [address] [place], [place] [phone] Keiko Hallman MD 80 [facility] [place] [address] 11/20/2023 11:00 AM EDT Appointment [facility] Radiology [facility] [facility] [address] [place] [address] [phone] Ricci Carter MD [address] [place], [place] [phone] 11/20/2023 11:30 AM EDT Appointment [facility] Radiology [facility] [address] [place] [phone] Ricci Carter MD [address] [place], [place] [phone] 03/05/2024 11:00 AM EST Consult [facility] Cardiology [address] [place] [phone] Ricci Carter MD [address] [place], [place] [phone] Jamil Ralph MD [address] [facility] [address] [place], [place] [phone] 05/30/2024 9:00 AM EST Office Visit [facility] Department of Internal Medicine [address] [place] [address] Consuelo Hobbs PA-C [address] [address] documented as of this encounter Visit Diagnoses Not on filedocumented in this encounter Care Teams 911 Emergency Dispatcher Relationship Specialty Start Date End Date Consuelo Hobbs PA-C [address] [phone] PCP - General 05/01/19 Madi Sharp MD [address] [address] Gastroenterology 10/02/19 documented as of this encounter
--- OUTSIDE RECORDS SUMMARY | 2023-10-29 17:45 | XMS_ITS | Encounter Summary ---
Author Organization [facility] Address [address] [place] [address] Care Team Providers Care Ic Designer Custom Name Role Phone Consuelo Hobbs PA-C Primary Care Provider Madi Sharp MD Unavailable [phone] Encounter Details Date Type Department Care Team (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); Encounter for monitoring octreotide therapy; Oncology follow-up encounter; Chronic diarrhea; Normocytic anemia; Fatigue, unspecified type; Vitamin D deficiency Social History Tobacco Use [...] Sign Reading Time Taken Comments Blood Pressure 143/89 11/29/2022 8:11 AM EDT Pulse 79 11/29/2022 8:11 AM EDT Temperature 36.4 ??C (97.6 ??F) 11/29/2022 8:11 AM ED T Respiratory Rate 20 11/29/2022 8:11 AM EDT Oxygen Saturation 99% 11/29/2022 8:11 AM EDT Inhaled Oxygen Concentration - - Weight 75.5 kg (166 lb 8 oz) 11/29/2022 8:11 AM EDT Height - - Body Mass Index 29.5 11/10/2022 9:51 AM EDT documented in this encounter Progress Notes * Ricci Carter MD - 11/29/2022 8:15 AM EDT Images from the original note were not included. Medical Oncology/Hematology Progress Note Healthcare Team: Consuelo Hobbs PA-C Subjective: Date of visit is: 11/29/2022 Rody Sotelo is a 52 y.o. female who presents here today for a follow- up visit regarding carcinoid. ONCOLOGY HISTORY: - December 16, 2019, colonoscopy was normal. Interim History: She is here alone. She reports feeling fatigued, which is moderate-severe. Her diarrhea has not worsened. She reports occasional nausea. 1-2 episodes over past few months. Diarrhea has not changed. Diarrheal stools are still worse with certain diet - ~4-5 stools/day (1-2 stools are liquid/soft). Still taking colestipol twice daily, granisetron 2 mg at bedtime, and loperamide ~12 mg/day - she has not used any short acting octreotide Colonoscopy was done last week. She denies any abdominal cramping or abdominal pain. She denies blood in stools. She denies flushing. Her LMP- October 2022 She reports no pain Pain: 0 REVIEW OF SYSTEMS: Review of Systems Constitutional: Positive for fatigue. Negative for appetite change, chills, diaphoresis, fever and unexpected weight change (+ 4- lbs). HENT: Negative for mouth sores, nosebleeds and sore throat. Respiratory: Negative for chest tightness, cough, shortness of breath and wheezing. Cardiovascular: Negative for chest pain, leg swelling and palpitations. Gastrointestinal: Negative for abdominal distention, abdominal pain and vomiting. Endocrine: Positive for hot flashes (stable). Musculoskeletal: Positive for arthralgias (ankles and feet, she is in PT) and back pain (mild, LBP). Neurological: Positive for dizziness (occasional) and headaches (migraines, stable). Negative for light-headedness. Hematological: Negative for adenopathy. Does not bruise/bleed easily. Psychiatric/Behavioral: Positive for sleep disturbance (stable). The remainder of the 12- point ROS are within normal limits with the exceptions as noted in the HPI. Allergies Allergies Allergen Reactions ??? Levaquin [Levofloxacin] Myalgia/Myositis/Arthralgia/Arthritis ??? Cefaclor GI Intolerance/Nausea/Vomiting ??? Erythromycin GI Intolerance/Nausea/Vomiting Medications Outpatient Medications Marked as Taking for the 11/29/22 encounter (Office Visit) with Ricci Carter MD: ??? busPIRone (BUSPAR) 10 MG tablet, Take 1 tablet (10 mg total) by mouth nightly., Disp: , Rfl: ??? calcium carbonate (OS-ANGELICA) 600 MG tablet, Take 1 tablet (600 mg total) by mouth every morning with breakfast., Disp: , Rfl: ??? Cannabis (MARIJUANA) [facility] Prescription Strength, as needed., Disp: , Rfl: ??? colestipol (COLESTID) 1 g tablet, Take 2 tablets (2 g total) by mouth 2 (two) times a day. Witha large glass of water., Disp: 120 tablet, Rfl: 5 ??? ergotamine-caffeine (CAFERGOT) 1-100 MG per tablet, Take two tablets at onset of attack; then 1tablet every 30 minutes as needed; maximum: 6 tablets per attack; do not exceed 10 tablets/week, Disp: 6 tablet, Rfl: 0 ??? famotidine [...] flushing)., Disp: 90 mL, Rfl: 11 ??? omega-3 fatty acids (FISH OIL) 1000 MG Cap capsule, Take 1 capsule (1,000 mg total) by mouth daily., Disp: , Rfl: ??? OMEprazole (PriLOSEC) 20 MG capsule, Take 1 capsule (20 mg total) by mouth every morning beforebreakfast., Disp: , Rfl: ??? pancrelipase, Iaw-Weih-Aoiw, (Creon) [address]00-[address]199 units Cap DR Particles capsule, Take 1 capsule (36,000 units of lipase total) by mouth 3 (three) times a day with meals. Dose is in units of lipase., Disp: 90 capsule, Rfl: 5 ??? rizatriptan (MAXALT-SUSTAINABILITY COORDINATOR) 10 MG disintegrating tablet, Take 1 tablet (10 mg total) by mouth onceas needed for migraine., Disp: 9 tablet, Rfl: 0 ??? vitamin D3 (CHOLECALCIFEROL) 1.25 MG (76322 UT) tablet, Take 1 tablet (50,000 Units [...] Procedure: COLONOSCOPY; Surgeon: Madi Sharp MD; Location: [facility]; Service: Gastroenterology; Laterality: N/A; ??? ENDOSCOPY ??? ENDOSCOPY UPPER N/A 04/22/2021 Preliminary Information: Procedure: ENDOSCOPY UPPER; Surgeon: Madi Sharp MD; Location: [facility]; Service: Gastroenterology; Laterality: N/A; ??? HEMICOLECTOMY Right [...] ??? Quit date: 05/17/2021 ??? Years since quittin.5 Smokeless Tobacco Never Social History Substance and Sexual Activity Alcohol Use Yes Social History Substance and Sexual Activity Drug Use Yes ??? Types: Marijuana Objective: Wt Readings from Last 2 Encounters: 11/29/22 75.5 kg (166 lb 8 oz) 11/10/22 73.9 kg (162 lb 14.4 oz) Physical Exam Vitals: 11/29/22 0811 BP: (!) 143/89 BP Location: Right arm Pulse: 79 Resp: 20 Temp: 97.6 ??F (36.4 ??C) TempSrc: Tympanic SpO2: 99% Weight: 75.5 kg (166 lb 8 oz) Performance status: ECOG (0) Fully active, [...] Judgment: Judgment normal. Results: Gynecology notes reviewed Medicine note reviewed Colonoscopy notes reviewed - November 14, 2022, MRI ABDOMEN AND PELVIS WITH AND WITHOUT CONTRAST ?? CLINICAL INFORMATION: History of benign carcinoid the ileum, restaging. ?? COMPARISON: MR abdomen and pelvis 05/05/2022. ?? FINDINGS: ?? LUNG BASES: Lung bases are clear. ?? LIVER: There is signal loss in the [...] favored to represent a transient perfusional abnormality. ?? GALLBLADDER AND BILIARY TREE: Cholecystectomy. Stable dilatation of the common bile duct measuring up to 1.3 cm in diameter which is likely related with chronic post cholecystectomy state. No significant intrahepatic biliary ductal dilatation. ?? SPLEEN: Normal size. No focal lesion. ?? PANCREAS: Normal. ?? ADRENAL GLANDS: No adrenal mass. ?? KIDNEYS AND URETERS: Redemonstration of homogeneous T2 bright avascular 2.2 cm cyst in the anterior upper right kidney, for which no imaging follow-up is recommended. ?? GASTROINTESTINAL: Again noted postsurgical changes from prior right hemicolectomy. No abnormal dilatation to suspect bowel obstruction. ?? PELVIS: Soft tissue nodules in the subcutaneous fat of the bilateral gluteal regions, favoring to represent injection sites. ?? Anteverted uterus with a normal configuration. There is a 0.8 cm homogeneous T2 dark lesion in the myometrium of the uterine fundus coronal image 18 series 7, favored to represent a fibroid. Normal endometrial thickness. Junctional zone is normal in thickness and signal. Again noted scar along the lower uterine segment. ?? Incidentally noted nabothian cysts. Normal appearance of the vagina. ?? Symmetric ovaries with normal morphology. ?? No free fluid or ascites. ?? No focal urinary bladder abnormality. No pelvic lymphadenopathy. ?? LYMPHOVASCULAR STRUCTURES: A bilobed enhancing mesenteric mass in the right para midline central mesentery does not appear convincingly changed in size measuring 3 x 2 cm axial image 124 series 1501, previously 2.9 x 2.2 cm when measured in a similar fashion on MRI from 05/05/2022 and 2.8 x 2.1 cm on MRI from 10/07/2021. ?? A more superiorly located mesenteric lymph node, just anterior to the SMA on axial image 100 series 1501 continues to increase in size currently measuring 2.4 x 1.6 cm previously 2.1 x 1.4 cm on 05/05/2022 and 1.9 x 1.6 cm on 10/07/2021. ?? There is overall similar degree of mass effect with flattening of the SMV as it courses through these mesenteric masses. ?? Normal caliber abdominal aorta. ?? OSSEOUS STRUCTURES: No acute or suspicious osseous abnormalities. ?? IMPRESSION: 1. When accounting for differences in measurement technique, no significant change in size of the 3 cm central mesenteric mass. A 2.4 x 1.6 cm slightly more superior upper mesenteric nodule appears to slightly increased in size compared to priors. 2. Nonspecific arterially hyperenhancing observation in the posterior aspect of the right hepatic lobe, only visualized on the arterial phase, favoring to represent a transient perfusion abnormality. Attention on follow-up in future imaging recommended. 3. Hepatic steatosis. Lab Results Component Value Date WBC 7.1 09/27/2022 RBC 4.18 09/27/2022 HGB 11.1 (L) 09/27/2022 MCV 85 09/27/2022 PLT 250 09/27/2022 NEUTROABS 2.70 09/27/2022 LYMPHSABS 4.10 09/27/2022 MONOSABS 688 06/28/2022 EOSABS 67 06/28/2022 BASOABS 37 06/28/2022 Lab Results Component Value Date ALT 30 (H) 09/27/2022 AST 28 09/27/2022 ALKPHOS 71 09/27/2022 BILITOT 0.3 09/27/2022 Lab Results Component Value Date GLUC 84 09/27/2022 CALCIUM 8.7 09/27/2022 NA 137 09/27/2022 K 4.1 09/27/2022 CO2 26 09/27/2022 CL 103 09/27/2022 BUN 10 09/27/2022 CREAT 0.77 09/27/2022 No results found for: FERRITIN, IRON, TIBC, RETIC, LABIRON Assessment/Plan: 1. Carcinoid, [id number] A. Diagnosed July 11, 2013 1. S/p [...] a follow- up visit regarding carcinoid. Rody continues to receive Sandostatin LAR for management of her advanced carcinoid. She presents without any new symptoms. She has persistent moderate- severe fatigue. All GI symptoms are chronic andstable. On November 14, 2022, re- staging MRI of abdomen and pelvis revealed: stable radiographic findings More specifically, when accounting for differences in measurement technique, there are no significant changes in the size of the 3 cm central mesenteric mass. A 2.4 x 1.6 cm slightly more superior upper mesenteric nodule appears to slightly increased in size compared to priors. Nonspecific arterially hyperenhancing observation in the posterior aspect of the right hepatic lobe, only visualized on the arterial phase, favoring to represent a transient perfusion abnormality. Hepatic steatosis. I reviewed these results with her today. Rody received her last dose of Sandostatin LAR on November 10, 2022. She is tolerating Sandostatin without any toxicities or adverse effects. She is without any new symptoms. She will receive her dose today. She has not required any additional short acting doses. On November 10, 2022, it was noted that her chromogranin A level was elevated, measuring 565 ng/mL (she was taking pantoprazole at time). This level was not anticipated, and question if this could be secondary to use of one of her medications, ie PPIs. I will repeat. On November 25, 2022, she underwent a colonoscopy. This revealed that the entire examined colon was normal. No specimens were collected. Rody is clinically and radiographically stable. She maintains response to Sandostatin LAR. Plan: - I have recommended that she continue Sandostatin LAR every 3 weeks- treatment today - labs ordered I have also recommended no changes to additional medical therapies and that she should continue granisetron 2 mg at bedtime, colestipol 1 g twice daily and continue to use short acting octreotide as needed for breakthrough diarrhea, and loperamide as needed. Continue taking Creon with meals. 2. Normocytic anemia Mild. Check iron studies, B12 and folate. She is tobacco free. Immunizations: She received her 1st shingles vaccine. She received her 2nd dose next week. She intends to get COVID booster and influenza immunization. ORDERS 1. Malignant carcinoid tumor of ileum (HCC) - Complete Blood Count, with Differential - BASIC METABOLIC PANEL - HEPATIC FUNCTION PANEL - Chromogranin A, LC/MS/MS - [facility] - Vitamin D, 25-Hydroxy - [facility] - Vitamin B12 and Folate - [facility] 2. Normocytic anemia - Iron, TIBC, and Ferritin Panel - [facility] - Vitamin B12 and Folate - [facility] 3. Fatigue, unspecified type - Iron, TIBC, and Ferritin Panel - [facility] No orders of the defined types were placed in this encounter. The patient will return in 12 weeks. There are no Patient Instructions on file for this visit. documented in this encounter Miscellaneous Notes * Addendum Note - Mickey Mcgee MA - 11/29/2022 8:50 AM EDTAddended by: MICKEY MCGEE on: 11/29/2022 08:50 AM Modules accepted: Orders documented in this encounter Plan of Treatment Upcoming Encounters Date Type Department Care Team (Late st Contact Info) Description 11/13/2023 7:45 AM EDT Office Visit [facility] Medical Oncology at [address] [phone] Ricci Carter MD [address] [place] [address] 11/13/2023 8:30 AM EDT Infusion [facility] [address] [phone] Ricci Carter MD [address] [place] [address] Keiko Hallman MD [address] [facility] [place] [address] 11/20/2023 11:00 AM EDT Appointment [facility] Radiology [place] [facility] [address] [place] [phone] Ricci Carter MD [address] [place], [place] [phone] 11/20/2023 11:30 AM EDT Appointment [facility] Radiology [address] [phone] Ricci Carter MD [address] [place], [place] [phone] 03/05/2024 11:00 AM EST Consult [facility] Cardiology [address] [place] [phone] Ricci Carter MD [address] [place], [place] [phone] Jamil Ralph MD [address] [facility] [address] [place], [place] [phone] 05/30/2024 9:00 AM EST Office Visit [facility] Department of Internal Medicine [facility] [address] [place], [place] [phone] Consuelo Hobbs PA-C [address] [facility] [address] [place], [place] [phone] documented as of this encounter Procedures Procedure Name Priority Date/Time Associated Diagnosis Comments POCT CBC WITH DIFFERENTIAL (NO BILL-REPORTABLE ONLY 3 PART)(ONCOLOGY-INTERF ACED) Routine 11/29/2022 8:48 AM EDT CHROMOGRANIN A, LC/MS/MS Routine 11/29/2022 8:38 AM EDT Malignant carcinoid tumor of ileum (HCC) IRON, TIBC, AND FERRITIN PANEL Routine 11/29/2022 8:38 AM EDT Normocytic anemia Fatigue, unspecified type VITAMIN B12 AND FOLATE Routine 11/29/2022 8:38 AM EDT Malignant carcinoid tumor of ileum (HCC) Normocytic anemia COMPLETE BLOOD COUNT, WITH DIFFERENTIAL Routine 11/29/2022 8:38 AM EDT Malignant carcinoid tumor of ileum (HCC) VITAMIN D, 25-HYDROXY Routine 11/29/2022 8:38 AM EDT Malignant carcinoid tumor of ileum (HCC) HEPATIC FUNCTION PANEL Routine 11/29/2022 8:38 AM EDT Malignant carcinoid tumor of ileum (HCC) BASIC METABOLIC PANEL Routine 11/29/2022 8:38 AM EDT Malignant carcinoid tumor of ileum (HCC) documented in this encounter Results * (ABNORMAL) POCT CBC with Differential (11/29/2022 8:48 AM EDT) White Blood Cell Count 5.9 4.0 - 11.0 Thou/uL 11/29/2022 8:50 AM EDT [facility] Red Blood Cell Count 4.32 4.00 - 5.40 Mil/uL 11/29/2022 8:50 AM EDT [facility] Hemoglobin 11.6(L) 11.7 - 15.7 g/dL 11/29/2022 8:50 AM EDT [facility] Hematocrit 37.4 35.0 - 47.0 % 11/29/2022 8:50 AM EDT [facility] MCV 87 80 - 100 fL 11/29/2022 8:50 AM EDT [facility] MCH 26.9(L) 27.0 - 31.0 pg 11/29/2022 8:50 AM EDT [facility] MCHC 31.0 30.0 - 36.0 g/dL 11/29/2022 8:50 AM EDT [facility] RDW 14.8(H) 11.5 - 14.5 % 11/29/2022 8:50 AM EDT [facility] Platelet Count 207 150 - 450 Thou/uL 11/29/2022 8:50 AM EDT [facility] MPV 10.3 9.4 - 12.5 fL 11/29/2022 8:50 AM EDT [facility] Neutrophils Auto 46.3 % 11/30/19 8:50 AM EDT [facility] Abs Neutrophils Auto 2.70 2.00 - 7.50 Thou/uL 11/29/2022 8:50 AM EDT [facility] Lymphocytes Auto 42.5 % 11/30/19 8:50 AM EDT [facility] Abs Lymphocytes Auto 2.50 1.50 - 4.50 Thou/uL 11/29/2022 8:50 AM EDT [facility] Mixed Mononuclear Auto 11.2 % 11/29/2022 8:50 AM EDT [facility] Abs Mixed Mononuclear Auto <1.00 0.20 - 1.90 Thou/uL 11/29/2022 8:50 AM EDT [facility] Blood specimen / Unknown 11/29/2022 8:48 AM EDT 11/29/2022 8:50 AM EDT Ricci Carter MD POCT ORDERABLES - [facility] See Below [address] [place] [address] * Vitamin B12 and Folate - [facility] (11/29/2022 8:38 AM EDT) Vitamin B12 347 200 - 1,100 pg/mL [employer] Comment: Please Note: Although the reference range for vitamin B12 is 200-1100 pg/mL, it has been reported that between 5 and 10% of patients with values between 200 and 400 pg/mL may experience neuropsychiatric and hematologic abnormalities due to occult B12 deficiency; less than 1% of patients with values above 400 pg/mL will have symptoms. Folate, Serum 18.7 ng/mL [employer] Comment: ? Reference Range ? Low: ? <3.4 ? Borderline: ?3.4-5.4 ? Normal: ?>5.4 Blood specimen (specimen) Blood specimen / Unknown 11/29/2022 8:38 AM EDT 11/29/2022 3:52 PM EDT Ricci Carter MD LAB BLOOD ORDERABLES Performing Organization Address City/State/[facility] Co de Phone Number [facility] [address] [place] [phone] * (ABNORMAL) Vitamin D, 25-Hydroxy - [facility] (11/29/2022 8:38 AM EDT) [facility] Vitamin D,25-Oh,Total, IA 23(L) 30 - 100 ng/mL [employer] Comment: Vitamin D Status ? 25-OH Vitamin D: Deficiency: ?<20 ng/mL Insufficiency: ? 20 - 29 ng/mL Optimal: ? > or = 30 ng/mL For 25-OH Vitamin D testing on patients on D2-supplementation and patients for whom quantitation of D2 and D3 fractions is required, the QuestAssureD(TM) 25-OH VIT D, (D2,D3), LC/MS/MS is recommended: order code 92188 (patients >2yrs). See Note 1 Note 1 For additional information, please refer to http://education.Publer/faq/HZP137 (This link is being provided for informational/ educational purposes only.) Blood specimen (specimen) Blood specimen / Unknown 11/29/2022 8:38 AM EDT 11/29/2022 3:52 PM EDT Ricci Carter MD LAB BLOOD ORDERABLES [facility] [address] [place] [phone] * Chromogranin A, LC/MS/MS - [facility] (11/29/2022 8:38 AM EDT) Chromogranin A, LC/MS/MS 247 ADULTS: <311 ng/mL [employer], Comment: The sample type for this test [...] prospective follow-up study. Int J Biol Markers. 2011 ;26(2):94-101.) This test was performed using a Liquid Chromatography Mass Spectrometry method. Values obtained from different assay methods cannot be used interchangeably. Chromogranin A levels, regardless of value, should not be interpreted as absolute evidence of the presence or absence of disease. This test was developed and its analytical performance characteristics have been determined by [employer] [facility]. It has not been cleared or approved by FDA. This assay has been validated pursuant to the CLIA regulations and is used for clinical purposes. 11/29/2022 8:38 AM EDT 11/29/2022 3:52 PM EDT Ricci Carter MD LAB BLOOD ORDERABLES Performing Organization Address [facility] Co de Phone Number [facility], [address] [place] [phone] * (ABNORMAL) Iron, TIBC, and Ferritin Panel - [facility] (11/29/2022 8:38 AM EDT) Iron 44(L) 45 - 160 mcg/dL [facility] Total Iron Binding Capacity 523(H) 250 - 450 mcg/dL (calc) [facility] Iron Saturation 8(L) 16 - 45 % (calc) [facility] Ferritin 10(L) 16 - 232 ng/mL [facility] Blood specimen (specimen) Blood specimen / Unknown 11/29/2022 8:38 AM EDT 11/29/2022 3:52 PM EDT Ricci Carter MD LAB BLOOD ORDERABLES Performing Organization Address [facility] Co de Phone Number [facility] [address] [place] [phone] * (ABNORMAL) HEPATIC FUNCTION PANEL (11/29/2022 8:38 AM EDT) Protein, Total 6.4 6.1 - 8.1 g/dL [facility] Albumin 3.9 3.6 - 5.1 g/dL [facility] Globulin 2.5 1.9 - 3.7 g/dL (calc) [facility] Albumin/Globulin Ratio 1.6 1.0 - 2.5 (calc) [facility] Bilirubin, Total 0.4 0.2 - 1.2 mg/dL [facility] Bilirubin, Direct 0.1 < OR = 0.2 mg/dL [employer] Bilirubin, Indirect 0.3 0.2 - 1.2 mg/dL (calc) [employer] Alkaline Phosphatase 67 37 - 153 U/L [employer] Aspartate Aminotrans (AST) 41(H) 10 - 35 U/L [employer] Alanine Aminotrans (ALT) 47(H) 6 - 29 U/L [employer] Blood specimen (specimen) Blood specimen / Unknown 11/29/2022 8:38 AM EDT 11/29/2022 3:52 PM EDT Ricci Carter MD LAB BLOOD ORDERABLES [facility] [address] [place] [phone] * BASIC METABOLIC PANEL (11/29/2022 8:38 AM EDT) Glucose 95 65 - 99 mg/dL [employer] Comment: ? Fasting reference interval Blood Urea Nitrogen (BUN) 11 7 - 25 mg/dL [employer] Creatinine 0.79 0.50 - 1.03 mg/dL [employer] Creatinine w/ eGFR 91 > OR = 60 mL/min/1. 73m2 [employer] BUN/Creatinine Ratio SEE NOTE: (calc) [employer] Comment: ?? Not Reported: BUN and Creatinine are within ?? reference range. ? Sodium 137 135 - 146 mmol/L [employer] Potassium 4.3 3.5 - 5.3 mmol/L [employer] Chloride 99 98 - 110 mmol/L [employer] CO2 29 20 - 32 mmol/L [employer] Calcium 9.2 8.6 - 10.4 mg/dL [employer] Blood specimen (specimen) Blood specimen / Unknown 11/29/2022 8:38 AM EDT 11/29/2022 3:52 PM EDT Ricci Carter MD LAB BLOOD ORDERABLES Performing Organization Address City/[facility]/ZIP Co de Phone Number [facility] [address] [place] [phone] * Complete Blood Count, with Differential (11/29/2022 8:38 AM EDT) White Blood Cell Count TNP [place]ousand/u L [employer] Comment: TEST NOT PERFORMED No lavender-top tube received. Blood specimen (specimen) Blood specimen / Unknown 11/29/2022 8:38 AM EDT 11/29/2022 3:52 PM EDT Ricci Carter MD LAB BLOOD ORDERABLES Performing Organization Address [facility] Co de Phone Number [facility] [address] [place] [phone] documented in this encounter Visit Diagnoses Diagnosis Malignant carcinoid tumor of ileum (HCC)- Primary Malignant carcinoid tumor of the ileum Encounter for monitoring octreotide therapy Oncology follow-up encounter Chronic diarrhea Diarrhea Normocytic anemia Unspecified anemia Fatigue, unspecified type Vitamin D deficiency documented in this encounter Care Teams Ic Designer Custom Relationship Specialty Start Date End Date Consuelo Hobbs PA-C [address] [place] [phone] PCP - General 05/01/19 Madi Sharp MD [address] [place] [phone] Gastroenterology 10/02/19 documented as of this encounter
--- OUTSIDE RECORDS SUMMARY | 2023-10-29 17:45 | XMS_ITS | Encounter Summary ---
Author Organization [facility] Address [address] [place] [address] Care Team Providers Care Cooker Syrup Name Role Phone Consuelo Hobbs PA-C Primary Care Provider Madi Sharp MD Unavailable [phone] Reason for Visit * Episode Based Medications (Routine) - Authorized Specialty Diagnoses / Procedures Referred By Contac t Referred To Contact Diagnoses Carcinoid tumor of ileum, unspecified whether malignant (HCC) Keiko Hallman MD 80 [facility] [place] [address] [address] [phone] Referral ID Status Reason Start Date Expiration Date V isits Requested Visits Authorized [id number] Authorized 04/29/2022 11/27/2023 5 2 Encounter Details Date Type Department Care Team (Late st Contact Info) Description 10/19/2022 9:30 AM EDT Infusion [facility] Cancer [place] at [facility] [address] [phone] Ricci Carter MD [address] [place] [address] Keiko Hallman MD 80 [facility] [place] [address] Sienna Alaniz RN 80 [place] [address] Carcinoid tumor of ileum, unspecified whether malignant [...] Reading Time Taken Comments Blood Pressure 138/90 10/19/2022 8:59 AM EDT Pulse 82 10/19/2022 8:59 AM EDT Temperature 35.9 ??C (96.6 ??F) 10/19/2022 8:59 AM ED T Respiratory Rate 16 10/19/2022 8:59 AM EDT Oxygen Saturation 99% 10/19/2022 8:59 AM EDT Inhaled Oxygen Concentration - - Weight 75.1 kg (165 lb 8 oz) 10/19/2022 8:59 AM EDT Height 160 cm (5' 2.99) 10/19/2022 8:59 AM EDT Body Mass Index 29.32 10/19/2022 8:59 AM EDT documented in this encounter Plan of Treatment Upcoming Encounters Date Type Department Care Team (Late st Contact Info) Description 11/13/2023 7:45 AM EDT Office Visit [facility] Cancer [place] Medical Oncology at [place] [phone] Ricci Carter MD [address] [place] [phone] 11/13/2023 8:30 AM EDT Infusion [facility] Cancer [place] at [facility]fusion [facility] [address] [phone] Ricci Carter MD [address] [place], [place] [phone] Keiko Hallman MD 80 [facility] [place] [address] 11/20/2023 11:00 AM EDT Appointment [facility] Radiology [facility] [facility] [address] [place] [phone] Ricci Carter MD [address] [place], [place] [phone] 11/20/2023 11:30 AM EDT Appointment [facility] Radiology [place] [facility] [address] [place] [phone] iRcci Carter MD [address] [place], [place] [phone] 03/05/2024 11:00 AM EST Consult [facility] Cardiology [place] 376 [facility] [address] [place] [phone] Ricci Carter MD [address] [place] [address] Jamil Ralph MD [address] [place] [facility] [address] [place], [place] [phone] 05/30/2024 9:00 AM EST Office Visit [facility] Department of Internal Medicine [facility] [address] [phone] Consuelo Hobbs PA-C [address] [phone] documented as of this encounter Visit Diagnoses Diagnosis Carcinoid tumor of ileum, unspecified whether malignant (HCC)- Primary documented in this encounter Administered Medications Inactive Administered Medications - up to 1 most recent administrations Medication Order MAR Action Action Date Dose Rate Site octreotide (SandoSTATIN LAR) IM injection 40 mg 40 mg, Intramuscular, Once, On Mon10/19/22 at 0930, For 1 dose, Administer IM intragluteal (avoid deltoid administration). For intraMUSCULAR use ONLY. Must be administered immediately after mixing. Given 10/19/2022 9:05 AM EDT 40 mg Left Gluteal Upper Outer Quadrant documented in this encounter Care Teams Cooker Syrup Relationship Specialty Start Date End Date Consuelo Hobbs PA-C [address] [place] [phone] PCP - General 05/01/19 Madi Sharp MD [address] [place] [address] Gastroenterology 10/02/19 documented as of this encounter
--- OUTSIDE RECORDS SUMMARY | 2023-10-29 17:45 | XMS_ITS | Encounter Summary ---
Author Organization [facility] Address [address] [place] [address] Care Team Providers Care Processing Specialist Name Role Phone Consuelo Hobbs PA-C Primary Care Provider Madi Sharp MD Unavailable [phone] Reason for Visit * Reason Comments Medication Refill Encounter Details Date Type Department Care Team (Late Contact Info) Description 12/14/2022 Refill [facility] Department of Internal Medicine & Nephrology [place] 85 [facility] [address] [place] [phone] Consuelo Hobbs PA-C [address]10 [facility] 109 [place], [place] [phone] Migraine with status migrainosus, not intractable, unspecified [...] EDT Office Visit [facility] Oncology at [address] [phone] Ricci Carter MD [address] [place], [place] [phone] 11/13/2023 8:30 AM EDT Infusion [facility] Cancer [place] at [facility] Outpatient Infusion Center [address] [phone] Ricci Carter MD [address] [place], [place] [phone] Keiko Hallman MD 80 [facility] [address] 11/20/2023 11:00 AM EDT Appointment [facility] Radiology [place] [facility] [address] [place] [phone] Ricci Carter MD [address] [place], [place] [phone] 11/20/2023 11:30 AM EDT Appointment [facility] Radiology [place] [facility] 35 [place] [phone] Ricci Carter MD [address] [place], [place] [phone] 03/05/2024 11:[address] [facility] Cardiology [address] [place] [phone] Ricci Carter MD [address] [place], [place] [phone] Jamil Ralph MD [address] [place] [address] 05/30/2024 9:00 AM EST Office Visit [facility] Department of Internal Medicine [facility] 1210 [facility] 109 [place] [address] Consuelo Hobbs PA-C [address]10 [facility] 109 [place] [address] documented as of this encounter Visit Diagnoses Diagnosis Migraine with status migrainosus, not intractable, unspecified migraine type documented in this encounter Care Teams Processing Specialist Relationship Specialty Start Date End Date Consuelo Hobbs PA-C [address] [place] [address] PCP - General 05/01/19 Madi Sharp MD [address] [address] Gastroenterology 10/02/19 documented as of this encounter
--- OUTSIDE RECORDS SUMMARY | 2023-10-29 17:45 | XMS_ITS | Encounter Summary ---
Author Organization [facility] Address [address] [place] [address] Care Team Providers Care Tub Operator Name Role Phone Consuelo Hobbs PA-C Primary Care Provider Madi Sharp MD Unavailable [phone] Encounter Details Date Type Department Care Team (Latest Contact Info) Description 09/13/2022 9:40 AM EDT Clinical Support [facility] Department of Internal Medicine & Nephrology [address] [phone] Consuelo Hobbs PA-C [address] [phone] Encounter for immunization (Primary Dx) Social History Tobacco Use Types [...] AM EDT documented as of this encounter Progress Notes * Consuelo Hobbs PA-C - 09/13/2022 9:44 AM EDT Images from the original note were not included. 360 [facility] [phone] Date: 09/13/2022 Patient Name: Rody Sotelo Date of : 1970 Patient Care Team Patient Care Team: Consuelo Hobbs PA-C as PCP - General Madi Sharp MD (Gastroenterology) Reason for Visit Chief complaint: need for immunization HPI Here for second shingrix First 06/07/2022, tolerated without issue Immunization History Administered Date(s) Administered ??? Covid-19 mRNA Primary Series Vaccine - Moderna 0.5 mL Full Dose 07/02/2020, 07/29/2020, 11/27/2020 ??? Influenza Inactivated Quadrivalent Preservative Free IM 01/03/2018, 02/22/2019 ??? Influenza Inactivated/Split Preservative Free IM 02/06/2020, 03/09/2021 ??? Influenza, Unspecified 03/14/2016 ??? Td 04/03/2016 ??? Zoster Vaccine Recombinant (Shingrix) 06/07/2022, 09/13/2022 Past Medical History Past Medical History: Diagnosis [...] Currently ??? Drug use: Yes Types: Marijuana Allergies Allergies Allergen Reactions ??? Levaquin [Levofloxacin] Myalgia/Myositis/Arthralgia/Arthritis ??? Cefaclor GI Intolerance/Nausea/Vomiting ??? Erythromycin GI Intolerance/Nausea/Vomiting Medications Current Outpatient Medications Medication Instructions ??? busPIRone (BUSPAR) 10 MG tablet 1 tablet, Oral, Nightly ??? calcium carbonate (OS-ANGELICA) 600 mg, Oral, Daily with breakfast ??? Cannabis (MARIJUANA) Misc Medical Prescription Strength As needed ??? colestipol (COLESTID) 2 g, Oral, 2 times daily, With a large glass of water. ??? ergotamine-caffeine (CAFERGOT) 1-100 MG per tablet TAKE 1 TABLET BY MOUTH TWICE DAILY NEEDED ??? famotidine (PEPCID) 40 mg, Oral, Daily ??? granisetron (KYTRIL) 2 mg, Oral, Daily ??? loperamide (IMODIUM A-D) 2 mg, Oral, 4 times daily PRN ??? morphine (ROXANOL) 10 mg/5 mL solution 2.5 mL, Oral, 4 times daily PRN, 2.5- 5ML q6hrs prn ??? Multiple Vitamins-Minerals (Multi Complete) Cap 1 capsule, Oral, See admin instructions ??? octreotide (SANDOSTATIN) 100 mcg, Subcutaneous, Every 8 hours PRN ??? omega-3 fatty acids (FISH OIL) 1000 MG Cap capsule 1 capsule, Oral, Daily ??? pancrelipase, Kme-Howd-Fwkn, (Creon) [address]-592698 units Cap DR Particles capsule 36,000 units of lipase, Oral, 3 times daily with meals, Dose is in units of lipase. ??? rizatriptan (MAXALT-FINANCIAL INSTITUTION MANAGER) 10 MG disintegrating tablet DISSOLVE 1 TABLET ON THE TONGUE EVERY DAY NEEDED ??? vitamin D3 (CHOLECALCIFEROL) 50,000 Units, Oral, Weekly Vitals There were no vitals filed for this visit. BP Readings from Last 3 Encounters: 09/06/22 137/64 08/16/22 133/72 07/26/22 138/67 Wt Readings from Last 3 Encounters: 09/06/22 171 lb 1.6 oz (77.6 kg) 08/16/22 169 lb 6.4 oz (76.8 kg) 07/26/22 162 lb 4.8 oz (73.6 kg) BMI: Estimated body mass index is 30.32 kg/m?? as calculated from the following: Height as of 08/16/22: 5' 2.99 (1.6 m). Weight as of 09/06/22: 171 lb 1.6 oz (77.6 kg). BSA: Estimated body surface area is 1.86 meters squared as calculated from the following: Height as of 08/16/22: 5' 2.99 (1.6 m). Weight as of 09/06/22: 171 lb 1.6 oz (77.6 kg). Results No results found for this or any previous visit (from the past 24 hour(s)). Assessment 1. Encounter for immunization Plan/ Orders Orders Placed This Encounter Procedures ??? Varicella-zoster vaccine intramuscular Discussion/ Summary SHINGRIX Pt received Shingrix 0.5cc IM to right deltoid region using aseptic technique. Patient tolerated injection well. Reviewed with pt possible side effects and signs of allergic reaction and need for emergent care. She did not have any rash, swelling, difficulty breathing with the first shot. Discussed adverse effects. Explained that as per drug rep for SHINGRIX, up to 48hrs of nausea, chills or a flu like feeling iscommon after the vaccination. Some people feel unwell for longer. Explained that she may feel the same way or worse with the second vaccination and should plan for it. ADJUVANT Lot#: [id number] Exp: 10/13/2024 Consuelo Hobbs PA-C Electronically signed by Consuelo Hobbs PA-C 09/13/2022 documented in this encounter Plan of Treatment Upcoming Encounters Date Type Department Care Team (Late st Contact Info) Description 11/13/2023 7:45 AM EDT Office Visit [facility] Medical Oncology at [address] [phone] Ricci Carter MD [address] [place], [place] [phone] 11/13/2023 8:30 AM EDT Infusion [facility] at [facility] Outpatient Infusion Center [address] [phone] Ricci Carter MD [address] [place], [place] [phone] Keiko Hallman MD 80 [facility] [place] [address] 11/20/2023 11:00 AM EDT Appointment [facility] Radiology [place] [facility] [address] [place] [phone] Ricci Carter MD [address] [place], [place] [phone] 11/20/2023 11:30 AM EDT Appointment [facility] Radiology [place] [facility] [address] [place] [phone] Ricci Carter MD [address] [place], [place] [phone] 03/05/2024 11:00 AM EST Consult [facility] Cardiology [place] 376 [facility] [address] [place] [phone] Ricci Carter MD [address] [place] [address] Jamil Ralph MD [address] [place] [facility] [address] [place] [address] 05/30/2024 9:00 AM EST Office Visit [facility] Department of Internal Medicine [facility] [place] 1210 [facility] 109 [place] [address] Consuelo Hobbs PA-C [address] [place] [address] documented as of this encounter Visit Diagnoses Diagnosis Encounter for immunization- Primary documented in this encounter Care Teams Tub Operator Relationship Specialty Start Date End Date Consuelo Hobbs PA-C [address] [place] [address] PCP - General 05/01/19 Madi Sharp MD [address] [address] Gastroenterology 10/02/19 documented as of this encounter
--- OUTSIDE RECORDS SUMMARY | 2023-10-29 17:45 | XMS_ITS | Encounter Summary ---
Author Organization [facility] Address [address] [place] [address] Care Team Providers Care Delinquent Tax Collector Name Role Phone Consuelo Hobbs PA-C Primary Care Provider Madi Sharp MD Unavailable [phone] Encounter Details Date Type Department Care Team (Late st Contact Info) Description 10/05/2022 Orders Only [facility] [address] [place] [address] [place] [phone] Shrari Selby PA-C [address] [place], [place] 148693 Colon cancer screening (Primary Dx) Social History Tobacco Use Types [...] Visit [facility] Medical Oncology at [address] [phone] Ricci Carter MD [address] [place], [place] [phone] 11/13/2023 8:30 AM EDT Infusion [facility] Cancer [place] at [facility] Outpatient Infusion Center [address] [phone] Ricci Carter MD [address] [place], [place] [phone] Keiko Hallman MD 80 [facility] [place] [address] 11/20/2023 11:00 AM EDT Appointment [facility] Radiology [place] [facility] [address] [place] [phone] Ricci Carter MD [address] [place], [place] [phone] 11/20/2023 11:30 AM EDT Appointment [facility] Radiology [place] [facility] [address] [place] [phone] Ricci Carter MD [address] [place], [place] [phone] 03/05/2024 11:00 AM EST Consult [facility] Cardiology [address] [place] [phone] Ricci Carter MD [address] [place] [address] Jamil Ralph MD [address] [place] [facility] [address] [place] [address] 05/30/2024 9:00 AM EST Office Visit [facility] Department of Internal Medicine [facility] 1210 [facility] 109 [place] [address] Consuelo Hobbs PA-C 1210 [facility] 109 [place] [address] documented as of this encounter Visit Diagnoses Diagnosis Colon cancer screening- Primary Special screening for malignant neoplasms, colon documented in this encounter Care Teams Delinquent Tax Collector Relationship Specialty Start Date End Date Consuelo Hobbs PA-C [address] [place] [address] 109 [place] [address] PCP - General 05/01/19 Madi Sharp MD [address] [place] [address] Gastroenterology 10/02/19 documented as of this encounter
--- OUTSIDE RECORDS SUMMARY | 2023-10-29 17:45 | XMS_ITS | Encounter Summary ---
Author Organization [facility] Address 100 [place] [address] Care Team Providers Care Waterside Worker Name Role Phone Consuelo Hobbs PA-C Primary Care Provider Madi Sharp MD Unavailable [phone] Reason for Visit * Reason Comments Injections * Episode Based Medications (Routine) - Authorized Specialty Diagnoses / Procedures Referred By Contbalbir t Referred To Contact Diagnoses Carcinoid tumor of ileum, unspecified whether malignant (HCC) Keiko Hallman MD 80 [facility] [place] [address] Med Onc Ci [address] [phone] Referral ID Status Reason Start Date Expiration Date V isits Requested Visits Authorized [id number] Authorized 04/29/2022 11/27/2023 5 2 Encounter Details Date Type Department Care Team (Late st Contact Info) Description 09/27/2022 8:45 AM EDT Infusion [facility] Cancer [place] at [facility] Outpatient Infusion Center [address] [phone] Ricci Carter MD [address] [place] [address] Keiko Hallman MD [address] [facility] [place] [address] Cony Garduno RN 80 [place] [address] Carcinoid tumor of ileum, unspecified whether malignant [...] Sign Reading Time Taken Comments Blood Pressure 146/74 09/27/2022 8:57 AM EDT Pulse 82 09/27/2022 8:57 AM EDT Temperature 36.5 ??C (97.7 ??F) 09/27/2022 8:57 AM ED T Respiratory Rate 16 09/27/2022 8:57 AM EDT Oxygen Saturation 99% 09/27/2022 8:57 AM EDT Inhaled Oxygen Concentration - - Weight 75.8 kg (167 lb 1.6 oz) 09/27/2022 8:57 A M EDT Height 160 cm (5' 2.99) 09/27/2022 8:57 AM EDT Body Mass Index 29.61 09/27/2022 8:57 AM EDT documented in this encounter Plan of Treatment Upcoming Encounters Date Type Department Care Team (Late st Contact Info) Description 11/13/2023 7:45 AM EDT Office Visit [facility] [place] Medical Oncology at [address] [place] [phone] Ricci Carter MD [address] [place] [address] 11/13/2023 8:30 AM EDT Infusion [facility] Cancer [place] at [facility] Outpatient Infusion Center [address] [phone] Ricci Carter MD [address] [place], [place] [phone] Keiko Hallman MD 80 [facility] [place] [address] 11/20/2023 11:00 AM EDT Appointment [facility] Radiology [place] [facility] [address] [place] [address] [phone] Ricci Carter MD [address] [place], [place] [phone] 11/20/2023 11:30 AM EDT Appointment [facility] Radiology [place] [facility] [address] [place] [phone] Ricci Carter MD [address] [place] [phone] 03/05/2024 11:00 AM EST Consult [facility] Cardiology [address] [place] [phone] Ricci Carter MD [address] [place] [phone] Jamil Ralph MD [address] [place] [facility] [address] [place] [address] 05/30/2024 9:00 AM EST Office Visit [facility] Department of Internal Medicine [facility] [address] [phone] Consuelo Hobbs PA-C [address] [phone] documented as of this encounter Visit Diagnoses Diagnosis Carcinoid tumor of ileum, unspecified whether malignant (HCC)- Primary documented in this encounter Administered Medications Inactive Administered Medications - up to 1 most recent administrations Medication Order MAR Action Action Date Dose Rate Site octreotide (SandoSTATIN LAR) IM injection 40 mg 40 mg, Intramuscular, Once, On Mon09/27/22 at 0930, For 1 dose, Administer IM intragluteal (avoid deltoid administration). For intraMUSCULAR use ONLY. Must be administered immediately after mixing. Given 09/27/2022 9:16 AM EDT 40 mg Left Gluteal Upper Outer Quadrant documented in this encounter Care Teams Waterside Worker Relationship Specialty Start Date End Date Consuelo Hobbs PA-C [address] [place] [address] PCP - General 05/01/19 Madi Sharp MD [address] [place] [address] Gastroenterology 10/02/19 documented as of this encounter
--- OUTSIDE RECORDS SUMMARY | 2023-10-29 17:45 | XMS_ITS | Encounter Summary ---
Author Organization [facility] Address 100 [place] [address] Care Team Providers Care Glass Forming Crew Member Name Role Phone Consuelo Hobbs PA-C Primary Care Provider Madi Sharp MD Unavailable [phone] Encounter Details Date Type Department Care Team (Latest Contact Info) Description 10/19/2022 Travel Social History Tobacco Use Types Packs/Day [...] EDT Office Visit [facility] Cancer [place] Medical Oncology at [address] [phone] Ricci Carter MD [address] [place] [address] 11/13/2023 8:30 AM EDT Infusion [facility] Cancer [place] at [facility] Outpatient Infusion Center [place] [address] [place] [phone] Ricci Carter MD [address] [place] [address] Keiko Hallman MD 80 [facility] [place] [address] 11/20/2023 11:00 AM EDT Appointment [facility] Radiology [place] Mamm[facility] 35 [place] [phone] Ricci Carter MD [address] [place] [address] 11/20/2023 11:30 AM EDT Appointment [facility] Radiology [place] [facility] 35 [place] [phone] Ricci Carter MD [address] [place] [address] 03/05/2024 11:00 AM EST Consult [facility] Cardiology [place] 376 [facility] [address] [place] [phone] Ricci Carter MD [address] [place] [address] Jamil Ralph MD [address] [place] [facility] [address] [place] [address] 05/30/2024 9:00 AM EST Office Visit [facility] Department of Internal Medicine [facility] [address] [phone] Consuelo Hobbs PA-C [address] [phone] documented as of this encounter Visit Diagnoses Not on filedocumented in this encounter Care Teams Glass Forming Crew Member Relationship Specialty Start Date End Date Consuelo Hobbs PA-C [address] [phone] PCP - General 05/01/19 Madi Sharp MD [address] [place] [address] Gastroenterology 10/02/19 documented as of this encounter
--- OUTSIDE RECORDS SUMMARY | 2023-10-29 17:45 | XMS_ITS | Encounter Summary ---
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] Procedures COLONOSCOPY Referral ID Status Reason Start Date Expiration Date Visits Re quested Visits Authorized [id number] 1 1 Encounter Details Date Type Department Care Team ([facility] st Contact Info) Description 11/25/2022 1:45 PM EDT - 11/25/2022 2:15 PM EDT Surgery [facility] ENDO PROC GLAST [address] [place] [address] [phone] Madi Sharp MD [address] [place], [place] [id number] COLONOSCOPY Social History Tobacco Use Types Packs/Day Years [...] Sign Reading Time Taken Comments Blood Pressure 112/68 11/25/2022 2:14 PM EDT Pulse 78 11/25/2022 2:14 PM EDT Temperature 36.4 ??C (97.6 ??F) 11/25/2022 2:08 PM ED T Respiratory Rate 15 11/25/2022 2:14 PM EDT Oxygen Saturation 99% 11/25/2022 2:14 PM EDT Inhaled Oxygen Concentration - - [...] every morning with breakfast. 0 Cannabis (MARIJUANA) [facility] Medical Prescription Strength as needed. [...] every morning before breakfast. 0 05/30/2023 pancrelipase, Xpu-Ybqj-Yvaw, (Creon) [id number] units Cap DR Particles capsuleIndications:Carcin oid tumor of ileum, unspecified whether malignant (HCC),Diarrhea, unspecified type Take 1 capsule (36,000 units of lipase total) by mouth 3 (three) times a day with meals. Dose is in units of lipase. 90 capsule 5 12/14/2021 12/20/2022 rizatriptan (MAXALT-TRIALS MANAGER) 10 MG disintegrating tabletIndications:Migrain e with status migrainosus, not intractable, unspecified migraine type Take 1 tablet (10 mg total) by mouth once as needed for migraine. 9 tablet 0 10/06/2022 12/14/2022 vitamin D3 (CHOLECALCIFEROL) 1.25 MG (61314 UT) tabletIndications:Vitamin D deficiency Take 1 tablet [...] EDT Office Visit [facility] Oncology at [address] [phone] Ricci Carter MD [address] [place] [address] 11/13/2023 8:30 AM EDT Infusion [facility] Cancer [place] at [facility]fusion [facility] [address] [phone] Ricci Carter MD [address] [place] [address] Keiko Hallman MD 80 [facility] [place] [address] 11/20/2023 11:00 AM EDT Appointment [facility] Radiology Shay Mammography [address] [place] [phone] Ricci Carter MD [address] [place] [address] 11/20/2023 11:30 AM EDT Appointment [facility] Radiology Sh[place] Mammography [address] [place] [phone] Ricci Carter MD [address] [place], [place] [id number] 03/05/2024 11:[address] [facility] Cardiology [place] [address] [facility] [address] [place] [phone] Ricci Carter MD [address] [place], [place] [phone] Jamil Ralph MD [address] [facility] [address] [place], [place] [phone] 05/30/2024 9:00 AM EST Office Visit [facility] Department of Internal Medicine [facility] [address] [place] [address] Consuelo Hobbs PA-C [address] [address] documented as of this encounter Visit Diagnoses Diagnosis Screening for colon cancer Special screening for malignant neoplasms, colon Malignant carcinoid tumor of ileum (HCC) Malignant carcinoid tumor of the ileum documented in this encounter Care Teams Food And Beverage Operations Manager Relationship Specialty Start Date End Date Consuelo Hobbs PA-C [address] [address] PCP - General 05/01/19 Madi Sharp MD [address] [place] [address] Gastroenterology 10/02/19 documented as of this encounter
--- OUTSIDE RECORDS SUMMARY | 2023-10-29 17:45 | XMS_ITS | Encounter Summary ---
Author Organization [facility] Address [address] [place] [address] Care Team Providers Care Professor Of Practice Name Role Phone Consuelo Hobbs PA-C Primary Care Provider Madi Sharp MD Unavailable [phone] Encounter Details Date Type Department Care Team (Late st Contact Info) Description 10/19/2022 Orders Only [facility] Cancer [place] Medical Oncology at [address] [phone] Viktoria Henderson, TECHNOLOGY ADOPTION MANAGER [address] [place] [address] Social History Tobacco Use Types Packs/Day Years [...] Description 11/13/2023 7:45 AM EDT Office Visit [facility] Medical Oncology at [address] [phone] Ricci Carter MD [address] [place] [place], [place] [phone] 11/13/2023 8:30 AM EDT Infusion [facility] Cancer [place] at [facility] Outpatient Infusion Center [address] [phone] Ricci Carter MD [address] [place], [place] [phone] Keiko Hallman MD 80 [facility] [place] [address] 11/20/2023 11:00 AM EDT Appointment [facility] Radiology Sh[place] Mammography [address] [place] [address] [phone] Ricci Carter MD [address] [place], [place] [phone] 11/20/2023 11:30 AM EDT Appointment [facility] Radiology [place] Mammography [address] [place] [address] [phone] Ricci Carter MD [address] [place], [place] [phone] 03/05/2024 11:00 AM EST Consult [facility] Cardiology [address] [place] [phone] Ricci Carter MD [address] [place] [address] Jamil Ralph MD [address] [place] [facility] [address] [place] [address] 05/30/2024 9:00 AM EST Office Visit [facility] Department of Internal Medicine [facility] 1210 [facility] 109 [place] [address] Consuelo Hobbs PA-C 1210 [facility] 109 [place] [address] documented as of this encounter Visit Diagnoses Not on filedocumented in this encounter Care Teams Professor Of Practice Relationship Specialty Start Date End Date Consuelo Hobbs PA-C [address] [place] [address] [address] [place] [address] PCP - General 05/01/19 Madi Sharp MD [address] [place] [id number] Gastroenterology 10/02/19 documented as of this encounter
--- OUTSIDE RECORDS SUMMARY | 2023-10-29 17:45 | XMS_ITS | Encounter Summary ---
Author Organization [facility] Address [address] [place] [address] Care Team Providers Care Corporate Administrative Assistant Name Role Phone Consuelo Hobbs PA-C Primary Care Provider Madi Sharp MD Unavailable [phone] Reason for Visit * Reason Comments Medication Refill Encounter Details Date Type Department Care Team (Late st Contact Info) Description 09/27/2022 Refill [facility] Department of Internal Medicine & Nephrology [place] 85 [facility] [address] [place] [address] Consuelo Hobbs PA-C 1210 [facility] 109 [place], [place] [phone] Migraine with status migrainosus, not intractable, unspecified [...] Description 11/13/2023 7:45 AM EDT Office Visit [facility] Medical Oncology at [address] [phone] Ricci Carter MD [address] [place] [address] 11/13/2023 8:30 AM EDT Infusion [facility] Cancer [place] at [facility] Outpatient Infusion Center [address] [phone] Ricci Carter MD [address] [place], [place] [phone] Keiko Hallman MD 80 [facility] [place] [address] 11/20/2023 11:00 AM EDT Appointment [facility] Sh[place] Mammography [address] [place] [phone] Ricci Carter MD [address] [place], [place] [phone] 11/20/2023 11:30 AM EDT Appointment [facility] Radiology [place] [facility]ammography [address] [place] [address] [phone] Ricci Carter MD [address] [place], [place] [phone] 03/05/2024 11:00 AM EST Consult [facility] Cardiology [address] [phone] Ricci Carter MD [address] [place] [address] Jamil Ralph MD [address] [place] [address] 05/30/2024 9:00 AM EST Office Visit [facility] Department of Internal Medicine [facility] [address] [place] [address] [place] [address] Consuelo Hobbs PA-C 1210 [facility] 109 [place] [address] documented as of this encounter Visit Diagnoses Diagnosis Migraine with status migrainosus, not intractable, unspecified migraine type documented in this encounter Care Teams Corporate Administrative Assistant Relationship Specialty Start Date End Date Consuelo Hobbs PA-C 1210 [facility] 109 [place] [address] PCP - General 05/01/19 Madi Sharp MD [address] [address] Gastroenterology 10/02/19 documented as of this encounter
--- OUTSIDE RECORDS SUMMARY | 2023-10-29 17:46 | XMS_ITS | Encounter Summary ---
Author Organization [facility] Address [address] [place] [address] Care Team Providers Care English Teacher Name Role Phone Consuelo Hobbs PA-C Primary Care Provider Madi Sharp MD Unavailable [phone] Encounter Details Date Type Department Care Team (Late st Contact Info) Description 08/15/2022 Orders Only [facility] Cancer [place] Medical Oncology at [address] [phone] Niki Giron, MAYA [address] [place] [address] Diarrhea, unspecified type; Carcinoid tumor of ileum Social History Tobacco [...] suspected to have Coronavirus/COVID-19? No / Unsure 07/26/2022 8:28 AM EDT documented as of this encounter Plan of Treatment Upcoming Encounters Date Type Department Care Team (Late st Contact Info) Description 11/13/2023 7:45 AM EDT Office Visit [facility] Medical Oncology at [address] [phone] Ricci Carter MD [address] [place] [address] 11/13/2023 8:30 AM EDT Infusion [facility] Cancer [place] at [facility] Out[facility] Infusion [facility] [address] [phone] Ricci Carter MD [address] [place], [place] [phone] Keiko Hallman MD 80 [facility] [place] [address] 11/20/2023 11:[address] [facility] Radiology Shay Mammography [address] [place] [address] [phone] Ricci Carter MD [address] [place], [place] [phone] 11/20/2023 11:[address] [facility] Radiology Sh[place] Mammography [address] [place] [address] [phone] Ricci Carter MD [address] [place], [place] [phone] 03/05/2024 11:00 AM EST Consult [facility] Cardiology [address] [place] [phone] Ricci Carter MD [address] [place] [address] Jamil Ralph MD [address] [facility] [address] [place] [address] 05/30/2024 9:00 AM EST Office Visit [facility] Department of Internal Medicine [facility] 1210 [facility] 109 [place] [address] Consuelo Hobbs PA-C [address] [address] documented as of this encounter Visit Diagnoses Diagnosis Diarrhea, unspecified type Carcinoid tumor of ileum (HCC) documented in this encounter Care Teams English Teacher Relationship Specialty Start Date End Date Consuelo Hobbs PA-C [address] [place] [address] 109 [place] [address] PCP - General 05/01/19 Madi Sharp MD [address] [place] [address] Gastroenterology 10/02/19 documented as of this encounter
--- OUTSIDE RECORDS SUMMARY | 2023-10-29 17:46 | XMS_ITS | Encounter Summary ---
Author Organization [facility] Address [address] [place] [address] Care Team Providers Care Manager Machine Name Role Phone Consuelo Hobbs PA-C Primary Care Provider Madi Sharp MD Unavailable [phone] Encounter Details Date Type Department Care Team (Late st Contact Info) Description 04/29/2022 Orders Only [facility] Cancer [place] Medical Oncology at [facility] [address] [place] [phone] Ricci Carter MD [address] [place] [address] Social History Tobacco Use Types Packs/Day Years [...] suspected to have Coronavirus/COVID-19? No / Unsure 04/29/2022 8:15 AM EST documented as of this encounter Plan of Treatment Upcoming Encounters Date Type Department Care Team (Late st Contact Info) Description 11/13/2023 7:45 AM EDT Office Visit [facility] Medical Oncology at [address] [phone] Ricci Carter MD [address] [place], [place] [phone] 11/13/2023 8:30 AM EDT Infusion [facility] Cancer [place] at [facility] Outpatient Infusion Center [address] [phone] Ricci Caretr MD [address] [place], [place] [phone] Keiko Hallman MD 80 [facility] [place] [address] 11/20/2023 11:00 AM EDT Appointment [facility] Radiology Shay Mammography [address] [place] [address] [phone] Ricci Carter MD [address] [place], [place] [address] 11/20/2023 11:30 AM EDT Appointment [facility] Radiology Shay Mammography [address] [place] [address] [phone] Ricci Carter MD [address] [place], [place] [address] 03/05/2024 11:00 AM EST Consult [facility] Cardiology [address] [place] [phone] Ricci Carter MD [address] [place] [address] Jamil Ralph MD [address] [facility] [address] [place] [id number] 05/30/2024 9:00 AM EST Office Visit [facility] Department of Internal Medicine [facility] 1210 [facility] [address] [place] [address] Consuelo Hobbs PA-C 1210 [facility] 109 [place] [address] documented as of this encounter Visit Diagnoses Not on filedocumented in this encounter Care Teams Manager Machine Relationship Specialty Start Date End Date Consuelo Hobbs PA-C [address] [place] [address] 109 [place] [address] PCP - General 05/01/19 Madi Sharp MD [address] [place] [address] Gastroenterology 10/02/19 documented as of this encounter
--- OUTSIDE RECORDS SUMMARY | 2023-10-29 17:46 | XMS_ITS | Encounter Summary ---
Author Organization [facility] Address [address] [place] [address] Care Team Providers Care Commercial Carpenter Name Role Phone Consuelo Hobbs PA-C Primary Care Provider Madi Sharp MD Unavailable [phone] Encounter Details Date Type Department Care Team (Late st Contact Info) Description 07/26/2022 Orders Only [facility] Cancer [place] Medical Oncology at [address] [phone] Ricci Carter MD [address] [place] [address] Social History Tobacco Use Types Packs/Day Years [...] suspected to have Coronavirus/COVID-19? No / Unsure 07/05/2022 8:11 AM EDT documented as of this encounter Plan of Treatment Upcoming Encounters Date Type Department Care Team (Late st Contact Info) Description 11/13/2023 7:45 AM EDT Office Visit [facility] Medical Oncology at [address] [phone] Ricci Carter MD [address] [place], [place] [phone] 11/13/2023 8:30 AM EDT Infusion [facility] Cancer [place] at [facility] Outpatient Infusion Center [address] [phone] Ricci Carter MD [address] [place], [place] [phone] Keiko Hallman MD 80 [facility] [place] [address] 11/20/2023 11:00 AM EDT Appointment [facility] Radiology Shay Mammography [address] [place] [address] [phone] Ricci Carter MD [address] [place], [place] [id number] 11/20/2023 11:30 AM EDT Appointment [facility] Radiology Shay Mammography [address] [place] [address] [phone] Ricci Carter MD [address] [place], [place] [address] 03/05/2024 11:00 AM EST Consult [facility] Cardiology [address] [place] [phone] Ricci Carter MD [address] [place] [address] Jamil Ralph MD [address] [facility] [address] [place] [address] 05/30/2024 9:00 AM EST Office Visit [facility] Department of Internal Medicine [facility] 1210 [facility] 109 [place] [address] Consuelo Hobbs PA-C 1210 [facility] 109 [place] [address] documented as of this encounter Visit Diagnoses Not on filedocumented in this encounter Care Teams Commercial Carpenter Relationship Specialty Start Date End Date Consuelo Hobbs PA-C [address] [place] [address] 109 [place] [address] PCP - General 05/01/19 Madi Sharp MD [address] [place] [phone] Gastroenterology 10/02/19 documented as of this encounter
--- OUTSIDE RECORDS SUMMARY | 2023-10-29 17:46 | XMS_ITS | Encounter Summary ---
Author Organization [facility] Address [address] [place] [address] Care Team Providers Care Log Sorter Name Role Phone Consuelo Hobbs PA-C Primary Care Provider Madi Sharp MD Unavailable [phone] Encounter Details Date Type Department Care Team (Late st Contact Info) Description 04/26/2022 Scanned Document [facility] Cancer [place] Medical Oncology at [address] [phone] Provider, Dodie, [address] [place] [address] Social History Tobacco Use Types Packs/Day Years [...] [facility] Medical Oncology at [address] [phone] Ricci Carter MD [address] [place], [place] [phone] 11/13/2023 8:30 AM EDT Infusion [facility] Cancer [place] at [facility] Out[facility] Infusion Center [address] [phone] Ricci Carter MD [address] [place], [place] [phone] Keiko Hallman MD 80 [facility] [place] [address] 11/20/2023 11:00 AM EDT Appointment [facility] Radiology Shay Mammography [address] [place] [address] [phone] Ricci Carter MD [address] [place], [place] [address] 11/20/2023 11:30 AM EDT Appointment [facility] Radiology Shay Mammography [address] [place] [phone] Ricci Carter MD [address] [place], [place] [address] 03/05/2024 11:00 AM EST Consult [facility] Cardiology [address] [place] [phone] Ricci Carter MD [address] [place], [place] [phone] Jamil Ralph MD [address] [place] [address] 05/30/2024 9:00 AM EST Office Visit [facility] Department of Internal Medicine [facility] 1210 [facility] [address] [place] [address] Consuelo Hobbs PA-C 1210 [facility] 109 [place], [place] [phone] documented as of this encounter Visit Diagnoses Not on filedocumented in this encounter Care Teams Log Sorter Relationship Specialty Start Date End Date Consuelo Hobbs PA-C 1210 [facility] 109 [place] [address] PCP - General 05/01/19 Madi Sharp MD [address] [address] Gastroenterology 10/02/19 documented as of this encounter
--- OUTSIDE RECORDS SUMMARY | 2023-10-29 17:46 | XMS_ITS | Encounter Summary ---
Author Organization [facility] Address [address] [place] [address] Care Team Providers Care Clay Caster Name Role Phone Consuelo Hobbs PA-C Primary Care Provider Madi Sharp MD Unavailable [phone] Encounter Details Date Type Department Care Team (Late st Contact Info) Description 07/28/2022 Telephone [facility] Department of Internal Medicine & Nephrology [place] 85 [facility] [address] [place] [address] Consuelo Hobbs PA-C 1210 [facility] [address] [place], [place] [phone] Social History Tobacco Use Types Packs/Day Years [...] encounter Miscellaneous Notes * Telephone Encounter - Lilli Sexton MA - 07/28/2022 11:41 AM EDT Na l/m for pt * Telephone Encounter - Lilli Sexton MA - 07/28/2022 11:41 AM EDT ----- Message from Consuelo Hobbs PA-C sent at 07/27/2022 1:04 PM EDT ----- Please let pt know breast imaging is ok. Rec is to repeat in 1yr. documented in this encounter Plan of Treatment Upcoming Encounters Date Type Department Care Team (Late st Contact Info) Description 11/13/2023 7:45 AM EDT Office Visit [facility] Medical Oncology at [address] [phone] Ricci Carter MD [address] [place] [address] 11/13/2023 8:30 AM EDT Infusion [facility] Cancer [place] at [facility] Outpatient Infusion Center [address] [phone] Ricci Carter MD [address] [place] [address] Keiko Hallman MD 80 [facility] [place] [address] 11/20/2023 11:00 AM EDT Appointment [facility] Radiology [address] [phone] Ricci Carter MD [address] [place], [place] [phone] 11/20/2023 11:30 AM EDT Appointment [facility] Radiology Shay Mammography 35 [place] [phone] Ricci Carter MD [address] [place], [place] [address] 03/05/2024 11:00 AM EST Consult [facility] Cardiology [place] [address] [facility] [address] [place] [phone] Ricci Carter MD [address] [place], [place] [phone] Jamil Ralph MD [address] [facility] [address] [place], [place] [phone] 05/30/2024 9:00 AM EST Office Visit [facility] Department of Internal Medicine [facility] [address] [place] [address] [place] [address] Consuelo Hobbs PA-C [address] [address] documented as of this encounter Visit Diagnoses Not on filedocumented in this encounter Care Teams Clay Caster Relationship Specialty Start Date End Date Consuelo Hobbs PA-C [address] [place] [address] PCP - General 05/01/19 Madi Sharp MD [address] [phone] Gastroenterology 10/02/19 documented as of this encounter
--- OUTSIDE RECORDS SUMMARY | 2023-10-29 17:46 | XMS_ITS | Encounter Summary ---
Author Organization [facility] Address [address] [place] [address] Care Team Providers Care Bingo Checker Name Role Phone Consuelo Hobbs PA-C Primary Care Provider Madi Sharp MD Unavailable [phone] Encounter Details Date Type Department Care Team (Latest Contact Info) Description 03/18/2022 Travel Social History Tobacco Use Types Packs/Day [...] suspected to have Coronavirus/COVID-19? No / Unsure 03/18/2022 8:54 AM EST documented as of this encounter Plan of Treatment Upcoming Encounters Date Type Department Care Team (Late st Contact Info) Description 11/13/2023 7:45 AM EDT Office Visit [facility] [place] [facility] at [address] [phone] Ricci Carter MD [address] [place] [address] 11/13/2023 8:30 AM EDT Infusion [facility] [place] at [facility] Out[facility] Infusion Center [place] [address] [place] [address] Ricci Carter MD [address] [place] [address] Keiko Hallman MD 80 [facility] [place] [address] 11/20/2023 11:00 AM EDT Appointment [facility] 35 [place] [phone] Ricci Carter MD [address] [place] [address] 11/20/2023 11:30 AM EDT Appointment [facility] Rad[facility] 35 [place] [phone] Ricci Carter MD [address] [place] [address] 03/05/2024 11:00 AM EST Consult [facility]iology [place] 376 [facility] [address] [place] [phone] Ricci Carter MD [address] [place] [address] Jamil Ralph MD [address] [facility] [address] [place] [address] 05/30/2024 9:00 AM EST Office Visit [facility] Physicians Department of Internal Medicine [facility] 1210 [facility] [address] [place] [phone] Consuelo Hobbs PA-C 1210 [facility] 109 [place], [place] [phone] documented as of this encounter Visit Diagnoses Not on filedocumented in this encounter Care Teams Bingo Checker Relationship Specialty Start Date End Date Consuelo Hobbs PA-C [address] [phone] PCP - General 05/01/19 Madi Sharp MD [address] [place] [address] Gastroenterology 10/02/19 documented as of this encounter
--- OUTSIDE RECORDS SUMMARY | 2023-10-29 17:46 | XMS_ITS | Encounter Summary ---
Author Organization [facility] Address [address] [place] [address] Care Team Providers Care Soldering Machine Feeder Name Role Phone Consuelo Hobbs PA-C Primary Care Provider Madi Sharp MD Unavailable [phone] Encounter Details Date Type Department Care Team (Latest Contact Info) Description 04/29/2022 Travel Social History Tobacco Use Types Packs/Day [...] 11/13/2023 7:45 AM EDT Office Visit [facility] [place] [facility] Oncology at [address] [phone] Ricci Carter MD 85 [place] [address] 11/13/2023 8:30 AM EDT Infusion [facility] [place] at [facility] Outpatient Infusion Center [place] [address] [place] [address] Ricci Carter MD [address] [place] [address] Keiko Hallman MD 80 [facility] [place] [address] 11/20/2023 11:00 AM EDT Appointment [facility] Radiology [facility] 35 [place] [phone] Ricci Carter MD 85 [place] [address] 11/20/2023 11:30 AM EDT Appointment [facility] Radiology [facility] 35 [place] [phone] Ricci Carter MD [address] [place] [address] 03/05/2024 11:00 AM EST Consult [facility] Cardiology [place] 376 [facility] [address] [place] [phone] Ricci Carter MD 85 [place] [address] Jamil Ralph MD [address] [place] [facility] [address] [place] [address] 05/30/2024 9:00 AM EST Office Visit [facility] Phys[facility] Department of Internal Medicine [facility] 1210 [facility] [address] [place] [phone] Consuelo Hobbs PA-C 1210 [facility] 109 [place], [place] [phone] documented as of this encounter Visit Diagnoses Not on filedocumented in this encounter Care Teams Soldering Machine Feeder Relationship Specialty Start Date End Date Consuelo Hobbs PA-C [address] [phone] PCP - General 05/01/19 Madi Sharp MD [address] [place] [address] Gastroenterology 10/02/19 documented as of this encounter
--- OUTSIDE RECORDS SUMMARY | 2023-10-29 17:46 | XMS_ITS | Encounter Summary ---
Author Organization [facility] Address [address] [place] [address] Care Team Providers Care Financial Institution Branch Manager Name Role Phone Consuelo Hobbs PA-C Primary Care Provider Madi Sharp MD Unavailable [phone] Reason for Visit * Episode Based Medications (Routine) - Authorized Specialty Diagnoses / Procedures Referred By Contac t Referred To Contact Diagnoses Carcinoid tumor of ileum, unspecified whether malignant (HCC) Keiko Hallman MD 80 [facility] [place] [address] [address] [address] Referral ID Status Reason Start Date Expiration Date V isits Requested Visits Authorized [id number] Authorized 04/29/2022 11/27/2023 5 2 Encounter Details Date Type Department Care Team (Late st Contact Info) Description 06/14/2022 8:15 AM EDT Infusion [facility] [place] at [facility] Outpatient Infusion Center [address] [phone] Ricci Carter MD [address] [place] [address] Keiko Hallman MD [address] [place] [address] Oncology [place] [phone] Shital Wallace RN [address] [place] [address] Carcinoid tumor of ileum, unspecified whether malignant [...] suspected to have Coronavirus/COVID-19? No / Unsure 06/14/2022 7:54 AM EDT documented as of this encounter Plan of Treatment Upcoming Encounters Date Type Department Care Team (Late st Contact Info) Description 11/13/2023 7:45 AM EDT Office Visit [facility] Medical Oncology at [address] [phone] Ricci Carter MD [address] [place] [address] 11/13/2023 8:30 AM EDT Infusion [facility] [place] at [facility] Outpatient Infusion Center [address] [phone] Ricci Carter MD [address] [place] [address] Keiko Hallman MD [address] [place] [address] Oncology [place] 11/20/2023 11:00 AM EDT Appointment [facility] Radiology [facility] [address] [place] [phone] Ricci Carter MD [address] [place], [place] [phone] 11/20/2023 11:30 AM EDT Appointment [facility] Radiology [place] [facility] [address] [place] [phone] Ricci Carter MD [address] [place], [place] [phone] 03/05/2024 11:00 AM EST [facility] [address] [place] [phone] Ricci Carter MD [address] [place], [place] [phone] Jamil Ralph MD [address] [place] [facility] [address] [place] [address] 05/30/2024 9:00 AM EST Office Visit [facility] Department of Internal [facility] 1210 [facility] [address] [place], [place] [phone] Consuelo Hobbs PA-C 1210 [facility] [address] [place] [address] documented as of this encounter Visit Diagnoses Diagnosis Carcinoid tumor of ileum, unspecified whether malignant (HCC)- Primary documented in this encounter Administered Medications Inactive Administered Medications - up to 1 most recent administrations Medication Order MAR Action Action Date Dose Rate Site octreotide (SandoSTATIN LAR) IM injection 40 mg 40 mg, Intramuscular, Once, On Mon06/14/22 at 0900, For 1 dose, Administer IM intragluteal (avoid deltoid administration). For intraMUSCULAR use ONLY. Must be administered immediately after mixing. Given 06/14/2022 8:23 AM EDT 40 mg Left Gluteal Upper Outer Quadrant documented in this encounter Care Teams Financial Institution Branch Manager Relationship Specialty Start Date End Date Consuelo Hobbs PA-C [address] [address] PCP - General 05/01/19 Madi Sharp MD [address] [place] [address] Gastroenterology 10/02/19 documented as of this encounter
--- OUTSIDE RECORDS SUMMARY | 2023-10-29 17:46 | XMS_ITS | Encounter Summary ---
Author Organization [facility] Address [address] [place] [address] Care Team Providers Care Mr Teacher Name Role Phone Consuelo Hobbs PA-C Primary Care Provider Madi Sharp MD Unavailable [phone] Encounter Details Date Type Department Care Team (Late st Contact Info) Description 06/15/2022 Scanned Document [facility] Physicians Department of Internal Medicine & Nephrology [place] 85 [facility] [address] [place] [address] Consuelo Hobbs PA-C 1210 [facility] [address] [place], [place] [phone] Social History Tobacco Use Types Packs/Day Years [...] Visit [facility] Medical Oncology at [address] [phone] Ricci Carter MD [address] [place], [place] [phone] 11/13/2023 8:30 AM EDT Infusion [facility] [place] at Outpatient Infusion Center [address] [phone] Ricci Carter MD [address] [place], [place] [phone] Keiko Hallman MD 80 [facility] [place] [place] [address] 11/20/2023 11:00 AM EDT Appointment [facility] Radiology [facility] [address] [place] [phone] Ricci Carter MD [address] [place], [place] [phone] 11/20/2023 11:30 AM EDT Appointment [facility] Radiology [place] [facility] [address] [place] [phone] Ricci Carter MD [address] [place], [place] [phone] 03/05/2024 11:00 AM EST Consult [facility] Cardiology [address] [place] [phone] Ricci Carter MD [address] [place] [phone] Jamil Ralph MD [address] [facility] [address] [place] [address] 05/30/2024 9:00 AM EST Office Visit [facility] Physicians Department of Internal Medicine [facility] 1210 [facility] 109 [place] [address] Consuelo Hobbs PA-C 1210 [facility] 109 [place] [address] documented as of this encounter Visit Diagnoses Not on filedocumented in this encounter Care Teams Mr Teacher Relationship Specialty Start Date End Date Consuelo Hobbs PA-C [address] [place] [address] 109 [place] [address] PCP - General 05/01/19 Madi Sharp MD [address] [place] [address] Gastroenterology 10/02/19 documented as of this encounter
--- OUTSIDE RECORDS SUMMARY | 2023-10-29 17:46 | XMS_ITS | Encounter Summary ---
Author Organization [facility] Address [address] [place] [address] Care Team Providers Care Envelope Adjuster Name Role Phone Consuelo Hobbs PA-C Primary Care Provider Madi Sharp MD Unavailable [phone] Encounter Details Date Type Department Care Team (Latest Contact Info) Description 06/14/2022 Travel Social History Tobacco Use Types Packs/Day [...] 7:45 AM EDT Office Visit [facility] [place] [facility] Oncology at [address] [phone] Ricci Carter MD [address] [place] [address] 11/13/2023 8:30 AM EDT Infusion [facility] [place] at [facility] Outpatient Infusion Center [place] [address] [place] [address] Ricci Carter MD [address] [place] [address] Keiko Hallman MD 80 [facility] [place] [address] 11/20/2023 11:00 AM EDT Appointment [facility] Radiology [facility] 35 [place] [phone] Ricci Carter MD [address] [place] [address] 11/20/2023 11:30 AM EDT Appointment [facility] Radiology [facility] [address] [place] [phone] Ricci Carter MD [address] [place] [address] 03/05/2024 11:00 AM EST Consult [facility] Cardiology [place] [address] [facility] [address] [place] [phone] Ricci Carter MD [address] [place] [address] Jamil Ralph MD [address] [facility] [address] [place] [address] 05/30/2024 9:00 AM EST Office Visit [facility] Physicians Department of Internal Medicine [facility] [address] [phone] Consuelo Hobbs PA-C [address] [phone] documented as of this encounter Visit Diagnoses Not on filedocumented in this encounter Care Teams Envelope Adjuster Relationship Specialty Start Date End Date Consuelo Hobbs PA-C [address] [phone] PCP - General 05/01/19 Madi Sharp MD [address] [place] [address] Gastroenterology 10/02/19 documented as of this encounter
--- OUTSIDE RECORDS SUMMARY | 2023-10-29 17:46 | XMS_ITS | Encounter Summary ---
Author Organization [facility] Address [address] [place] [address] Care Team Providers Care Tire Vulcanizer Name Role Phone Consuelo Hobbs PA-C Primary Care Provider Madi Sharp MD Unavailable [phone] Reason for Visit * Reason Comments Injections * Episode Based Medications (Routine) - Authorized Specialty Diagnoses / Procedures Referred By Contbalbir t Referred To Contact Diagnoses Carcinoid tumor of ileum, unspecified whether malignant (HCC) Keiko Hallman MD 80 [facility] [place] [address] Med Onc Ci [address] [address] Referral ID Status Reason Start Date Expiration Date V isits Requested Visits Authorized [id number] Authorized 04/29/2022 11/27/2023 5 2 Encounter Details Date Type Department Care Team (Late st Contact Info) Description 08/16/2022 8:30 AM EDT Infusion [facility] [place] at [facility] Outpatient Infusion Center [address] [phone] Ricci Carter MD [address] [place] [address] Keiko Hallman MD 80 [facility] [place] [address] Jayshree Araiza RN [address] [place] [address] Carcinoid tumor of ileum, unspecified whether malignant [...] suspected to have Coronavirus/COVID-19? No / Unsure 08/16/2022 8:31 AM EDT documented as of this encounter Last Filed Vital Signs Vital Sign Reading Time Taken Comments Blood Pressure 133/72 08/16/2022 8:43 AM EDT Pulse 84 08/16/2022 8:43 AM EDT Temperature 36 ??C (96.8 ??F) 08/16/2022 8:43 AM EDT Respiratory Rate 16 08/16/2022 8:43 AM EDT Oxygen Saturation 98% 08/16/2022 8:43 AM EDT Inhaled Oxygen Concentration - - Weight 76.8 kg (169 lb 6.4 oz) 08/16/2022 8:43 A M EDT Height 160 cm (5' 2.99) 08/16/2022 8:43 AM EDT Body Mass Index 30.02 08/16/2022 8:43 AM EDT documented in this encounter Plan of Treatment Upcoming Encounters Date Type Department Care Team (Late st Contact Info) Description 11/13/2023 7:45 AM EDT Office Visit [facility] [place] [facility] Oncology at [address] [phone] Ricci Carter MD [address] [place], [place] [phone] 11/13/2023 8:30 AM EDT Infusion [facility] [place] at [facility] Outpatient Infusion Center [address] [phone] Ricci Carter MD [address] [place], [place] [phone] Keiko Hallman MD 80 [facility] [place] [address] 11/20/2023 11:00 AM EDT Appointment [facility] Radiology [facility] [address] [place] [phone] Ricci Cartre MD [address] [place], [place] [phone] 11/20/2023 11:30 AM EDT Appointment [facility] Radiology [facility] [facility] [address] [place] [phone] Ricci Carter MD [address] [place] [address] 03/05/2024 11:00 AM EST Consult [facility] Cardiology [address] [place] [address] Ricci Carter MD [address] [place], [place] [phone] Jamil Ralph MD [address] [place] [address] 05/30/2024 9:00 AM EST Office Visit [facility] Physicians Department of Internal Medicine [facility] [place] 1210 [facility] 109 [place] [address] Consuelo Hobbs PA-C [address] [phone] documented as of this encounter Visit Diagnoses Diagnosis Carcinoid tumor of ileum, unspecified whether malignant (HCC)- Primary documented in this encounter Administered Medications Inactive Administered Medications - up to 1 most recent administrations Medication Order MAR Action Action Date Dose Rate Site octreotide (SandoSTATIN LAR) IM injection 40 mg 40 mg, Intramuscular, Once, On Tu08/16/22 at 0930, For 1 dose, Administer IM intragluteal (avoid deltoid administration). For intraMUSCULAR use ONLY. Must be administered immediately after mixing. Given 08/16/2022 8:51 AM EDT 40 mg Other (See Comments) documented in this encounter Care Teams Tire Vulcanizer Relationship Specialty Start Date End Date Consuelo Hobbs PA-C [address] [place] [address] PCP - General 05/01/19 Madi Sharp MD [address] [place] [address] Gastroenterology 10/02/19 documented as of this encounter
--- OUTSIDE RECORDS SUMMARY | 2023-10-29 17:46 | XMS_ITS | Encounter Summary ---
Author Organization [facility] Address [address] [place] [address] Care Team Providers Care Escalator Operator Name Role Phone Consuelo Hobbs PA-C Primary Care Provider Madi Sharp MD Unavailable [phone] Encounter Details Date Type Department Care Team (Latest Contact Info) Description 07/05/2022 Travel Social History Tobacco Use Types Packs/Day [...] Description 11/13/2023 7:45 AM EDT Office Visit [facility] [place] Medical Oncology at [address] [phone] Ricci Carter MD [address] [place] [address] 11/13/2023 8:30 AM EDT Infusion [facility] [place] at [facility] Outpatient Infusion Center [place] [address] [place] [address] Ricci Carter MD [address] [place] [address] Keiko Hallman MD 80 [facility] [place] [address] 11/20/2023 11:00 AM EDT Appointment [facility] Radiology [facility] Mammography 35 [place] [phone] Ricci Carter MD [address] [place] [address] 11/20/2023 11:30 AM EDT Appointment [facility] Radiology [facility] Mammography 35 [place] [phone] Ricci Carter MD [address] [place] [address] 03/05/2024 11:00 AM EST Consult [facility] Cardiology [place] 376 [facility] [address] [place] [phone] Ricci Carter MD [address] [place] [address] Jamil Ralph MD [address] [place] [facility] [address] [place] [address] 05/30/2024 9:00 AM EST Office Visit [facility] Physicians Department of Internal Medicine [facility] [address] [phone] Consuelo Hobbs PA-C [address] [phone] documented as of this encounter Visit Diagnoses Not on filedocumented in this encounter Care Teams Escalator Operator Relationship Specialty Start Date End Date Consuelo Hobbs PA-C [address] [phone] PCP - General 05/01/19 Madi Sharp MD [address] [place] [address] Gastroenterology 10/02/19 documented as of this encounter
--- OUTSIDE RECORDS SUMMARY | 2023-10-29 17:46 | XMS_ITS | Encounter Summary ---
Author Organization [facility] Address [address] [place] [address] Care Team Providers Care Seed Potato Cutter Name Role Phone Consuelo Hobbs PA-C Primary Care Provider Madi Sharp MD Unavailable [phone] Encounter Details Date Type Department Care Team (Latest Contact Info) Description 06/07/2022 Travel Social History Tobacco Use Types Packs/Day [...] suspected to have Coronavirus/COVID-19? No / Unsure 06/07/2022 8:46 AM EST documented as of this encounter Plan of Treatment Upcoming Encounters Date Type Department Care Team (Late st Contact Info) Description 11/13/2023 7:45 AM EDT Office Visit [facility] [place] Medical Oncology at [address] [phone] Ricci Carter MD 85 [place] [address] 11/13/2023 8:30 AM EDT Infusion [facility] [place] at [facility] Outpatient Infusion Center [place] [address] [place] [address] Ricci Carter MD [address] [place] [address] Keiko Hallman MD 80 [facility] [place] [address] 11/20/2023 11:00 AM EDT Appointment [facility] Radiology [facility] Mammography 35 [place] [phone] Ricci Carter MD [address] [place] [address] 11/20/2023 11:30 AM EDT Appointment [facility] Radiology [facility] Mammography 35 [place] [phone] Ricci Carter MD [address] [place] [address] 03/05/2024 11:00 AM EST Consult [facility] Cardiology [place] 376 [facility] [address] [place] [phone] Ricci Carter MD 85 [place] [address] Jamil Ralph MD 100 [place] [facility] [address] [place] [address] 05/30/2024 9:00 AM EST Office Visit [facility] Physicians Department of Internal Medicine [facility] 1210 [facility] [address] [place] [phone] Consuelo Hobbs PA-C 1210 [facility] 109 [place], [place] [phone] documented as of this encounter Visit Diagnoses Not on filedocumented in this encounter Care Teams Seed Potato Cutter Relationship Specialty Start Date End Date Consuelo Hobbs PA-C [address] [phone] PCP - General 05/01/19 Madi Sharp MD [address] [place] [address] Gastroenterology 10/02/19 documented as of this encounter
--- OUTSIDE RECORDS SUMMARY | 2023-10-29 17:46 | XMS_ITS | Encounter Summary ---
Author Organization [facility] Address [address] [place] [address] Care Team Providers Care Case Management Coordinator Name Role Phone Consuelo Hobbs PA-C Primary Care Provider Madi Sharp MD Unavailable [phone] Encounter Details Date Type Department Care Team ([facility] st Contact Info) Description 06/02/2022 Orders Only [facility] [address] [facility] [place] [address] Consuelo Hobbs PA-C 1210 [facility] [address] [place], [place] [phone] Social History Tobacco Use Types Packs/Day Years [...] suspected to have Coronavirus/COVID-19? No / Unsure 05/23/2022 10:48 AM EST documented as of this encounter Progress Notes * Consuelo Hobbs PA-C - 06/08/2022 12:17 PM EST Please let pt know her MAMMO shows an areas in the right breast that needs further imaging. She needs to call JR to schedule the follow up study. I'll place the orders. thanks documented in this encounter Plan of Treatment Upcoming Encounters Date Type Department Care Team (Late st Contact Info) Description 11/13/2023 7:45 AM EDT Office Visit [facility] Medical Oncology at [address] [phone] Ricci Carter MD [address] [place] [address] 11/13/2023 8:30 AM EDT Infusion [facility] Cancer [place] at [facility] [address] [phone] Ricci Carter MD [address] [place], [place] [phone] Keiko Hallman MD 80 [facility] [place] [address] 11/20/2023 11:00 AM EDT Appointment [facility] Radiology [facility] [address] [place] [phone] Ricci Carter MD [address] [place], [place] [phone] 11/20/2023 11:30 AM EDT Appointment [facility] Radiology [facility] [address] [place] [phone] Ricci Carter MD [address] [place] [address] 03/05/2024 11:00 AM EST Consult [facility] Cardiology [place] [address] [facility] [address] [place] [phone] Ricci Carter MD [address] [place] [address] Jamil Ralph MD [address] [place] [address] 05/30/2024 9:00 AM EST Office Visit [facility] Department of Internal Medicine [facility] [address] [facility] [address] [place], [place] [phone] Consuelo Hobbs PA-C 12[address] [facility] [address] [place] [address] documented as of this encounter Procedures Procedure Name Priority Date/Time Associated Diagnosis Comments MG SCREENING DIGITAL BREAST FERNANDO- BILATERAL Routine 06/07/2022 2:07 PM EST documented in this encounter Results * MG SCREENING DIGITAL BREAST FERNANDO- BILATERAL (06/07/2022 2:07 PM EST) Anatomical Region Laterality Modality Other 06/02/2022 7:45 AM EST 06/02/2022 7:45 AM EST Impressions 06/07/2022 2:07 PM EST Area of architectural distortion in the right breast requires additional evaluation. Additional imaging (right ultrasound if warranted, right FERNANDO CC spot compression with tomosynthesis, and right FERNANDO ML with tomosynthesis) is recommended. The patient will receive a lay summary of the results of this breast imaging exam. Lay summaries for mammography examinations will also identify the patients personal breast tissue composition as required by state law. BIRADS Category 0: Incomplete: Needs Additional Imaging Evaluation Thank you for referring your patient to us, Cody Soria [phone] (Electronically Signed - 06/07/2022 14:07) Copy: CARLOS PADRON MD [address] [place] [phone] PATIENT , ?? Narrative 06/07/2022 2:07 PM EST HISTORY: Patient is 52 years old and is seen for screening. FILMS COMPARED: This is the patients baseline mammogram. FERNANDO STATEMENT: Computer-aided detection was utilized by the radiologist in the interpretation of this examination. 3D tomosynthesis digital mammographic images were obtained using standard projections. MAMMOGRAM FINDINGS: There are scattered fibroglandular densities. (ACR BIRADS density Category b) * There is an area of architectural distortion seen in the CC view only seen in the posterior third lateral aspect of the right breast located 7 centimeters from the nipple. This is best visualized on tomosynthesis CC view slice # 9. In the left breast, no suspicious masses, calcifications or other abnormalities are seen. Procedure Note YangCody MD - 06/07/2022 HISTORY: Patient is 52 years old and is seen for screening. FILMS COMPARED: This is the patients baseline mammogram. FERNANDO STATEMENT: Computer-aided detection was utilized by the radiologist in theinterpretation of this examination. 3D tomosynthesis digital mammographic images were obtained using standardprojections. MAMMOGRAM FINDINGS: There are scattered fibroglandular densities. (ACR BIRADS density Categoryb) * There is an area of architectural distortion seen in the CC view only seenin the posterior third lateral aspect of the right breast located 7centimeters from the nipple. This is best visualized on tomosynthesis CCview slice # 9. In the left breast, no suspicious masses, calcifications or otherabnormalities are seen. IMPRESSION: Area of architectural distortion in the right breast requires additionalevaluation. Additional imaging (right ultrasound if warranted, right TOMOCC spot compression with tomosynthesis, and right FERNANDO ML withtomosynthesis) is recommended. The patient will receive a lay summary of the results of this breastimaging exam. Lay summaries for mammography examinations will alsoidentify the patients personal breast tissue composition as required bystate law. BIRADS Category 0: Incomplete: Needs Additional Imaging Evaluation Thank you for referring your patient to us, Cody Soria [phone] (Electronically Signed - 06/07/2022 14:07) Copy: CARLOS PADRON MD [address] [place] [phone] PATIENT , Consuelo Hobbs PA-C IMG LEGACY PROC EDURES documented in this encounter Visit Diagnoses Not on filedocumented in this encounter Care Teams Case Management Coordinator Relationship Specialty Start Date End Date Consuelo Hobbs PA-C [address] [place] [address] PCP - General 05/01/19 Madi Sharp MD [address] [place] [address] Gastroenterology 10/02/19 documented as of this encounter
--- OUTSIDE RECORDS SUMMARY | 2023-10-29 17:46 | XMS_ITS | Encounter Summary ---
Author Organization [facility] Address [address] [place] [address] Care Team Providers Care Mechanical Apprentice Name Role Phone Consuelo Hobbs PA-C Primary Care Provider Madi Sharp MD Unavailable [phone] Encounter Details Date Type Department Care Team (Late st Contact Info) Description 06/14/2022 7:45 AM EDT Office Visit [facility] Cancer [place] Medical Oncology at [address] [phone] Ricci Carter MD [address] [place] [address] Carcinoid tumor of ileum, unspecified whether malignant (Primary Dx); Encounter for monitoring octreotide therapy; Cigarette nicotine dependence in remission; Abnormal mammogram of right breast; Chronic diarrhea Social History Tobacco Use Types [...] Recorded In the last 10 days, have angel solis been in contact with someone who was confirmed or suspected to have Coronavirus/COVID-19? No / Unsure 06/14/2022 7:54 AM EDT documented as of this encounter Last Filed Vital Signs Vital Sign Reading Time Taken Comments Blood Pressure 131/75 06/14/2022 8:00 AM EDT Pulse 78 06/14/2022 8:00 AM EDT Temperature 36.7 ??C (98.1 ??F) 06/14/2022 8:00 AM ED T Respiratory Rate 20 06/14/2022 8:00 AM EDT Oxygen Saturation 99% 06/14/2022 8:00 AM EDT Inhaled Oxygen Concentration - - Weight 74.8 kg (165 lb) 06/14/2022 8:00 AM EDT Height - - Body Mass Index 29.23 06/07/2022 8:54 AM EST documented in this encounter Progress Notes * Ricci Carter MD - 06/14/2022 7:45 AM EDT Images from the original note were not included. Medical Oncology/Hematology Progress Note Healthcare Team: Consuelo Hobbs PA-C Subjective: Date of visit is: 06/14/2022 Rody Sotelo is a 52 y.o. female who presents here today for a follow- up visit regarding carcinoid. ONCOLOGY HISTORY: - December 16, 2019, colonoscopy was normal. Interim History: She is here alone. She reports no changes in GI symptoms. She offers no new complaints. Diarrhea, about the same, bowels are as good it has ever been Still about 4-5 stools/day (1-2 stools are liquid/soft). Still taking colestipol twice daily. She does notice improvement. Still taking granisetron 2 mg at bedtime. She is taking ~12 mg loperamide per day. She reports no side effects from Sandostatin LAR. She has not required short acting octreotide. She reports no hot flashes, or flushing. Her LMP- May 2022 She reports no pain Pain: 0 REVIEW OF SYSTEMS: Review of Systems Constitutional: Positive for fatigue (stable). Negative for appetite change, chills, diaphoresis, fever and unexpected weight change. HENT: Negative for nosebleeds. Respiratory: Negative for cough and shortness of breath. Cardiovascular: Negative for leg swelling and palpitations. Gastrointestinal: Negative for abdominal pain, blood in stool, nausea and vomiting. Endocrine: Negative for hot flashes. Musculoskeletal: Positive for arthralgias (ankles and feet). Negative for back pain. Neurological: Positive for headaches (migraines). Negative for dizziness and light-headedness. Hematological: Does not bruise/bleed easily. Psychiatric/Behavioral: Positive for sleep disturbance. Confusion: The remainder of the 12- point ROS are within normal limits with the exceptions as noted in the HPI. Allergies Allergies Allergen Reactions ??? Levaquin [Levofloxacin] Myalgia/Myositis/Arthralgia/Arthritis ??? Cefaclor GI Intolerance/Nausea/Vomiting ??? Erythromycin GI Intolerance/Nausea/Vomiting Medications Current Outpatient Medications: ??? busPIRone (BUSPAR) 10 MG tablet, Take 1 tablet (10 mg total) by mouth nightly., Disp: , Rfl: ??? calcium carbonate (OS-ANGELICA) 600 MG tablet, Take 1 tablet (600 mg total) by mouth every morning with breakfast., Disp: , Rfl: ??? Cannabis (MARIJUANA) Misc Medical Prescription Strength, as needed., Disp: , Rfl: ??? colestipol (COLESTID) 1 g tablet, Take 1 tablet (1 g total) by mouth 2 (two) times a day. With a large glass of water., Disp: 360 tablet, Rfl: 1 ??? ergotamine-caffeine (CAFERGOT) 1-100 MG per tablet, TAKE 1 TABLET BY MOUTH TWICE DAILY NEEDED, Disp: 12 tablet, Rfl: 3 ??? famotidine (PEPCID) 40 MG tablet, Take [...] 10 mg/5 mL solution, Take 2.5 mL by mouth 4 (four) times a day as needed fordiarrhea. 2.5-5ML q6hrs prn, Disp: , Rfl: ??? [...] 1000 MG Cap capsule, Take 1 capsule by mouth daily., Disp: , Rfl: ??? pancrelipase, Nij-Equf-Cwjy, (Creon) [address]-315850 units Cap DR Particles capsule, Take 1 capsule (36,000 units of lipase total) by mouth 3 (three) times a day with meals. Dose is in units of lipase., Disp: 90 capsule, Rfl: 5 ??? rizatriptan (MAXALT-PUBLIC DEFENDER) 10 MG disintegrating tablet, DISSOLVE ONE TABLET BY MOUTH EVERY DAY ASNEEDED, Disp: 9 tablet, Rfl: 0 ??? vitamin D3 (CHOLECALCIFEROL) 1.25 MG (86551 UT) tablet, Take 1 tablet (50,000 Units [...] ENDOSCOPY UPPER; Surgeon: Madi Sharp MD; Location: [facility]; Service: Gastroenterology; Laterality: N/A; ??? HEMICOLECTOMY [...] ??? Quit date: 05/17/2021 ??? Years since quittin.0 Smokeless Tobacco Never Social History Substance and Sexual Activity Alcohol Use Not Currently Social History Substance and Sexual Activity Drug Use Yes ??? Types: Marijuana Objective: Wt Readings from Last 2 Encounters: 06/14/22 74.8 kg (165 lb) 06/07/22 74.8 kg (165 lb) Physical Exam Vitals: 06/14/22 0800 BP: 131/75 BP Location: Right arm Pulse: 78 Resp: 20 Temp: 98.1 ??F (36.7 ??C) TempSrc: Tympanic SpO2: 99% Weight: 74.8 kg (165 lb) Performance status: ECOG (0) Fully active, [...] adenopathy. Upper Body: Right upper body: No supraclavicular or axillary adenopathy. Left upper body: No supraclavicular or axillary adenopathy. Skin: General: Skin is warm and dry. Coloration: Skin is not jaundiced or pale. Findings: No bruising, erythema, lesion or rash. Nails: There is no clubbing. Neurological: General: No focal deficit present. Mental Status: She is alert and oriented to person, place, and time. Cranial Nerves: No cranial nerve deficit. Sensory: No sensory deficit. Gait: Gait normal. Deep Tendon Reflexes: Reflexes are normal and symmetric. Psychiatric: Mood and Affect: Mood normal. Behavior: Behavior normal. Thought Content: Thought content normal. Judgment: Judgment normal. Results: Medicine/nephrology notes reviewed - June 02, 2022, MAMMOGRAM FINDINGS: There are scattered fibroglandular densities. [...] masses, calcifications or other abnormalities are seen. IMPRESSION: Area of architectural distortion in the right breast requires additional evaluation. Additional imaging (right ultrasound if warranted, right FERNANDO CC spot compression with tomosynthesis, and right FERNANDO ML with tomosynthesis) is recommended. BIRADS Category 0: Incomplete: Needs Additional Imaging Evaluation - May 05, 2022, MR ABDOMEN AND PELVIS WITHOUT AND WITH CONTRAST IMPRESSION: When accounting for differences in measurement technique, no significant change in size of a 2.7 cmsoft tissue mass in the central mesentery. A 1.1 cm short axis mesenteric node adjacent to the massappears to be slightly increased in size from prior. Lab Results Component Value Date WBC 6.2 03/15/2022 HGB 11.2 (L) 03/15/2022 HCT 33.9 (L) 03/15/2022 MCV 85.0 03/15/2022 PLT 237 03/15/2022 Lab Results Component Value Date NEUTROABS 3,360 03/15/2022 Lab Results Component Value Date ALT 38 (H) 03/15/2022 AST 37 (H) 03/15/2022 ALKPHOS 78 03/15/2022 BILITOT 0.4 03/15/2022 Lab Results Component Value Date GLUC 96 03/15/2022 CALCIUM 9.2 03/15/2022 NA 138 03/15/2022 K 4.5 03/15/2022 CO2 30 03/15/2022 CL 102 03/15/2022 BUN 13 03/15/2022 CREAT 0.76 03/15/2022 Assessment/Plan: 1. Carcinoid, [id number] A. Diagnosed July 11, 2013 1. S/p [...] a follow- up visit regarding carcinoid. Rody presents today for follow-up and ongoing management of her carcinoid. She is without any new symptoms or oncologic concerns. She is receiving Sandostatin LAR 40 mg every 3 weeks. She is tolerating Sandostatin well and without any adverse effects or toxicities. She received her last dose on May 23, 2022. On May 05, 2022, re- staging MRI of the abdomen and pelvis revealed no significant changes in size of a 2.7 cm soft tissue mass involving central mesentery, and a stable 1.1 cm mesenteric node adjacent to the mass. Rody continues to do well from an oncologic standpoint and remains without any clinical or radiographic evidence of progression of her carcinoid. She is without any worsening of GI symptoms. States this is the best they have been. She does notice improvement since initiating colestipol and with twice daily dosing. This has decreased her daily loperamide requirements. Continue Sandostatin LAR 40 mg every 3 weeks. Continue colestipol 1 g twice daily. Continue granisetron 2 mg once daily, loperamide and short acting octreotide as needed, and Creon with meals. On June 02, 2022, mammogram revealed: scattered fibroglandular densities. (ACR BIRADS density Category b) * with an area of architectural distortion involving the right breast that requires additional evaluation. Additional imaging is recommended. In the left breast, there are no suspicious masses,calcifications or other abnormalities are seen. I spoke to Rody about this. She reports no breast masses or concerns. She will discuss this with her PCP to order additional evaluation. I recommended that she contact me if she needs me to order. She will have blood work at [facility]. Orders placed. She received her 1st shingles vaccine last week. She is tobacco free. ORDERS 1. Carcinoid tumor of ileum, unspecified whether malignant - Complete Blood Count, with Differential; Future - BASIC METABOLIC PANEL; Future - HEPATIC FUNCTION PANEL; Future No orders of the defined types were placed in this encounter. The patient will return in 12 weeks. There are no Patient Instructions on file for this visit. documented in this encounter Plan of Treatment Upcoming Encounters Date Type Department Care Team (Late st Contact Info) Description 11/13/2023 7:45 AM EDT Office Visit [facility] Medical Oncology at [address] [phone] Ricci Carter MD [address] [place] [address] 11/13/2023 8:30 AM EDT Infusion [facility] Cancer [place] [facility]fusion Center [address] [phone] Ricci Carter MD [address] [place] [address] Keiko Hallman MD 80 [facility] [place] [address] 11/20/2023 11:00 AM EDT Appointment [facility] Radiology [place] [facility] [address] [place] [phone] Ricci Carter MD [address] [place], [place] [phone] 11/20/2023 11:30 AM EDT Appointment [facility] Radiology [place] [facility] [address] [place] [phone] Ricci Carter MD [address] [place], [place] [phone] 03/05/2024 11:00 AM EST Consult [facility] Cardiology [address] [place] [phone] Ricci Carter MD [address] [place], [place] [phone] Jamil Ralph MD [address] [facility] [address] [place] [phone] 05/30/2024 9:00 AM EST Office Visit [facility] Department of Internal Medicine [facility] [address] [facility] [address] [place] [phone] Consuelo Hobbs PA-C [address] [facility] [address] [place], [place] [phone] Scheduled Orders Name Type Priority Associated Diagnoses Orde r Schedule Complete Blood Count, with Differential Lab Routine Carcinoid tumor of ileum, unspecified whether malignant Expected: 06/14/2022 (Approximate), Expires: 06/15/2023 BASIC METABOLIC PANEL Lab Routine Carcinoid tumor of ileum, unspecified whether malignant Expected: 06/14/2022 (Approximate), Expires: 06/15/2023 HEPATIC FUNCTION PANEL Lab Routine Carcinoid tumor of ileum, unspecified whether malignant Expected: 06/14/2022 (Approximate), Expires: 06/15/2023 documented as of this encounter Visit Diagnoses Diagnosis Carcinoid tumor of ileum, unspecified whether malignant (HCC)- Primary Encounter for monitoring octreotide therapy Cigarette nicotine dependence in remission Abnormal mammogram of right breast Chronic diarrhea Diarrhea documented in this encounter Care Teams Mechanical Apprentice Relationship Specialty Start Date End Date Consuelo Hobbs PA-C [address] [place] [phone] PCP - General 05/01/19 Madi Sharp MD [address] [place] [address] Gastroenterology 10/02/19 documented as of this encounter
--- OUTSIDE RECORDS SUMMARY | 2023-10-29 17:46 | XMS_ITS | Encounter Summary ---
Author Organization [facility] Address [address] [place] [address] Care Team Providers Care Electronic Technician Name Role Phone Consuelo Hobbs PA-C Primary Care Provider Madi Sharp MD Unavailable [phone] Reason for Visit * Episode Based Medications (Routine) - Authorized Specialty Diagnoses / Procedures Referred By Contac t Referred To Contact Diagnoses Carcinoid tumor of ileum, unspecified whether malignant (HCC) Keiko Hallman MD 80 [facility] [place] [address] Med [address] [phone] Referral ID Status Reason Start Date Expiration Date V isits Requested Visits Authorized [id number] Authorized 04/29/2022 11/27/2023 5 2 Encounter Details Date Type Department Care Team (Late st Contact Info) Description 07/05/2022 8:00 AM EDT Infusion [facility] Cancer [place] at [facility]fusion [facility] [address] [phone] Ricci Carter MD [address] [place] [address] Keiko Hallman MD 80 [facility] [place] [address] Shital Wallace RN [address] [place] [address] Carcinoid tumor of ileum, unspecified whether malignant [...] Sign Reading Time Taken Comments Blood Pressure 168/75 07/05/2022 8:20 AM EDT Pulse 85 07/05/2022 8:20 AM EDT Temperature 36.7 ??C (98 ??F) 07/05/2022 8:20 AM EDT Respiratory Rate 16 07/05/2022 8:20 AM EDT Oxygen Saturation 100% 07/05/2022 8:20 AM EDT Inhaled Oxygen Concentration - - Weight 75.1 kg (165 lb 8 oz) 07/05/2022 8:20 AM EDT Height 160 cm (5' 2.99) 07/05/2022 8:20 AM EDT Body Mass Index 29.32 07/05/2022 8:20 AM EDT documented in this encounter Plan of Treatment Upcoming Encounters Date Type Department Care Team (Late st Contact Info) Description 11/13/2023 7:45 AM EDT Office Visit [facility] Cancer [place] Medical Oncology at [address] [phone] Ricci Carter MD [address] [place] [address] 11/13/2023 8:30 AM EDT Infusion [facility] Cancer [place] at [facility]fusion [facility] [address] [phone] Ricci Carter MD [address] [place], [place] [phone] Keiko Hallman MD 80 [facility] [place] [address] 11/20/2023 11:00 AM EDT Appointment [facility] Radiology [facility] [address] [place] [phone] Ricci Carter MD [address] [place] [address] 11/20/2023 11:30 AM EDT Appointment [facility] Radiology [facility] [address] [place] [phone] Ricci Carter MD [address] [place], [place] [phone] 03/05/2024 11:00 AM EST Consult [facility] Cardiology [place] [address] [facility] [address] [place] [phone] Ricci Carter MD [address] [place] [address] Jamil Ralph MD [address] [place] [address] [facility] [address] [place], [place] [phone] 05/30/2024 9:00 AM EST Office Visit [facility] Department of Internal Medicine [facility] [place] [address] [phone] Consuelo Hobbs PA-C [address] [phone] documented as of this encounter Visit Diagnoses Diagnosis Carcinoid tumor of ileum, unspecified whether malignant (HCC)- Primary documented in this encounter Administered Medications Inactive Administered Medications - up to 1 most recent administrations Medication Order MAR Action Action Date Dose Rate Site octreotide (SandoSTATIN LAR) IM injection 40 mg 40 mg, Intramuscular, Once, On Mon07/05/22 at 0900, For 1 dose, Administer IM intragluteal (avoid deltoid administration). For intraMUSCULAR use ONLY. Must be administered immediately after mixing. Given 07/05/2022 8:27 AM EDT 40 mg Left Gluteal Upper Outer Quadrant documented in this encounter Care Teams Electronic Technician Relationship Specialty Start Date End Date Consuelo Hobbs PA-C [address] [phone] PCP - General 05/01/19 Madi Sharp MD [address] [address] Gastroenterology 10/02/19 documented as of this encounter
--- OUTSIDE RECORDS SUMMARY | 2023-10-29 17:46 | XMS_ITS | Encounter Summary ---
Author Organization [facility] Address [address] [place] [address] Care Team Providers Care Construction Or Leak Gang Laborer Name Role Phone Consuelo Hobbs PA-C Primary Care Provider Madi Sharp MD Unavailable [phone] Encounter Details Date Type Department Care Team (Latest Contact Info) Description 07/26/2022 Travel Social History Tobacco Use Types Packs/Day [...] 7:45 AM EDT Office Visit [facility] [place] Medical Oncology at [address] [phone] Ricci Carter MD [address] [place] [address] 11/13/2023 8:30 AM EDT Infusion [facility] [place] at [facility] [place] [address] [place] [address] Ricci Carter MD [address] [place] [address] Keiko Hallman MD 80 [facility] [place] [address] 11/20/2023 11:00 AM EDT Appointment [facility] Radiology [facility] [address] [place] [phone] Ricci Carter MD [address] [place] [address] 11/20/2023 11:30 AM EDT Appointment [facility] Radiology [facility] [address] [place] [phone] Ricci Carter MD [address] [place] [address] 03/05/2024 11:00 AM EST Consult [facility] Cardiology [place] [address] [facility] [address] [place] [phone] Ricci Carter MD [address] [place] [address] Jamil Ralph MD [address] [facility] [address] [place] [address] 05/30/2024 9:00 AM EST Office Visit [facility] Department of Internal Medicine [facility] [address] [phone] Consuelo Hobbs PA-C [address] [phone] documented as of this encounter Visit Diagnoses Not on filedocumented in this encounter Care Teams Construction Or Leak Gang Laborer Relationship Specialty Start Date End Date Consuelo Hobbs PA-C [address] [phone] PCP - General 05/01/19 Madi Sharp MD [address] [place] [address] Gastroenterology 10/02/19 documented as of this encounter
--- OUTSIDE RECORDS SUMMARY | 2023-10-29 17:46 | XMS_ITS | Encounter Summary ---
Author Organization [facility] Address [address] [place] [address] Care Team Providers Care Machine Hose Cutter Name Role Phone Consuelo Hobbs PA-C Primary Care Provider Madi Sharp MD Unavailable [phone] Reason for Visit * Reason Comments Medication Refill Encounter Details Date Type Department Care Team (Late st Contact Info) Description 08/09/2022 Refill [facility] Department of Internal Medicine & Nephrology [place] [address] [facility] [address] [place] [address] Consuelo Hobbs PA-C 1210 [facility] 109 [place], [place] [phone] Migraine with status migrainosus, not intractable, unspecified [...] Description 11/13/2023 7:45 AM EDT Office Visit [facility] Medical Oncology at [address] [phone] Ricci Carter MD [address] [place] [address] 11/13/2023 8:30 AM EDT Infusion [facility] [place] at [facility] [address] [phone] Ricci Carter MD [address] [place], [place] [phone] Keiko Hallman MD [address] [facility] [place] [address] 11/20/2023 11:00 AM EDT Appointment [facility] Radiology [place] Mammography [address] [place] [phone] Ricci Carter MD [address] [place], [place] [phone] 11/20/2023 11:30 AM EDT Appointment [facility] Radiology [place] [facility] [address] [place] [phone] Ricci Carter MD [address] [place], [place] [phone] 03/05/2024 11:00 AM EST Consult [facility] Cardiology [address] [phone] Ricci Carter MD [address] [place] [address] Jamil Raplh MD [address] [place] [address] 05/30/2024 9:00 AM EST Office Visit [facility] Department of Internal Medicine [facility] [address] [facility] [address] [place] [address] Consuelo Hobbs PA-C 1210 [facility] 109 [place] [address] documented as of this encounter Visit Diagnoses Diagnosis Migraine with status migrainosus, not intractable, unspecified migraine type documented in this encounter Care Teams Machine Hose Cutter Relationship Specialty Start Date End Date Consuelo Hobbs PA-C 1210 [facility] 109 [place] [address] PCP - General 05/01/19 Madi Sharp MD [address] [address] Gastroenterology 10/02/19 documented as of this encounter
--- OUTSIDE RECORDS SUMMARY | 2023-10-29 17:46 | XMS_ITS | Encounter Summary ---
Author Organization [facility] Address [address] [place] [address] Care Team Providers Care Health Care Liaison Name Role Phone Consuelo Hobbs PA-C Primary Care Provider Madi Sharp MD Unavailable [phone] Encounter Details Date Type Department Care Team (Late st Contact Info) Description 06/28/2022 Orders Only [facility] Department of Internal Medicine & Nephrology [place] [address] [place] [address] [address] [place] [address] Consuelo Hobbs PA-C 1214 [facility] [address] [place] [address] Social History Tobacco Use Types Packs/Day Years [...] as of this encounter Progress Notes * Lilli Sexton MA - 07/05/2022 2:34 PM EDT Called pt, n/a, unable to l/m mailbox full. Sent message to pt in mail. documented in this encounter Plan of Treatment Upcoming Encounters Date Type Department Care Team (Late st Contact Info) Description 11/13/2023 7:45 AM EDT Office Visit [facility] Medical Oncology at [address] [phone] Ricci Carter MD [address] [place] [address] 11/13/2023 8:30 AM EDT Infusion [facility] [place] at [facility]fusion [facility] [address] [phone] Ricci Carter MD [address] [place], [place] [phone] Keiko Hallman MD 80 [facility] [place] [address] 11/20/2023 11:[address] [facility] Radiology [place] Mammography [address] [place] [phone] Ricci Carter MD [address] [place] [address] 11/20/2023 11:[address] [facility] Radiology [place] Mammography [address] [place] [phone] Ricci Carter MD [address] [place] [address] 03/05/2024 11:00 AM EST [facility]iology [place] [address] [facility] [address] [place] [address] Ricci Carter MD [address] [place] [address] Jamil Ralph MD [address] [place] [address] 05/30/2024 9:00 AM EST Office Visit [facility] Department of Internal Medicine [facility] 1210 [facility] [address] [place], [place] [phone] Consuelo Hobbs PA-C 1210 [facility] [address] [place], [place] [phone] documented as of this encounter Procedures Procedure Name Priority Date/Time Associated Diagnosis Comments TSH REFLEX TO FREE T4 Routine 06/28/2022 8:10 AM EDT LIPID PANEL WITH NONHDL Routine 06/28/2022 8:10 AM EDT URINALYSIS WITH REFLEX TO CULTURE Routine 06/28/2022 8:10 AM EDT COMPLETE BLOOD COUNT, WITH DIFFERENTIAL Routine 06/28/2022 8:10 AM EDT COMPREHENSIVE METABOLIC PANEL Routine 06/28/2022 8:10 AM EDT documented in this encounter Results * TSH REFLEX FREE T4 (06/28/2022 8:10 AM EDT) TSH reflex Free T4 2.86 mIU/L [facility] Comment: ?Reference Range ?> or = 20 Years ??0.40-4.50 ? Ranges ?First trimester ?0.26-2.66 ?Second trimester ?? 0.55-2.73 ?Third trimester ?0.43-2.91 06/28/2022 8:10 AM EDT 06/28/2022 8:14 AM EDT Narrative [facility] - 06/29/2022 12:07 AM EDT FASTING:YES FASTING: YES Consuelo Hobbs PA-C LAB BLOOD ORDER KARTHIK Performing Organization Address City/State/[facility] Co de Phone Number [facility] [employer] [address] [place] [phone] * (ABNORMAL) Complete Blood Count, with Differential (06/28/2022 8:10 AM EDT) White Blood Cell Count 7.4 3.8 - 10.8 Thousand/ uL [facility] Red Blood Cell Count 4.07 3.80 - 5.10 Million/u L [facility] Hemoglobin 11.2(L) 11.7 - 15.5 g/dL [facility] Hematocrit 33.6(L) 35.0 - 45.0 % [facility] MCV 82.6 80.0 - 100.0 fL [facility] MCH 27.5 27.0 - 33.0 pg [facility] MCHC 33.3 32.0 - 36.0 g/dL [facility] RDW 14.1 11.0 - 15.0 % [facility] Platelet Count 252 140 - 400 Thousand/ uL [facility] MPV 11.0 7.5 - 12.5 fL [facility] Abs Neutrophils Auto 3,567 1,500 - 7,800 cells/uL [facility] Abs Lymphocytes Auto 3,041 850 - 3,900 cells/uL [facility] Abs Monocytes Auto 688 200 - 950 cells/uL [facility] Abs Eosinophils Auto 67 15 - 500 cells/uL [facility] [employer] Abs Basophils Auto 37 0 - 200 cells/uL [facility] [employer] Neutrophils Auto 48.2 % Que [facility] Lymphocytes Auto 41.1 % [facility] Monocytes Auto 9.3 % [facility] Eosinophils Auto 0.9 % [facility] [employer] Basophils Auto 0.5 % [facility] 06/28/2022 8:10 AM EDT 06/28/2022 8:[address] [facility] - 06/29/2022 12:07 AM EDT FASTING:YES FASTING: YES Consuelo Hobbs PA-C LAB BLOOD ORDER KARTHIK [facility] [employer] [address] [place] [address] * (ABNORMAL) Urinalysis with Reflex to Culture (06/28/2022 8:10 AM EDT) Color YELLOW YELLOW [employer] Clarity CLOUDY(A) CLEAR [facility] [employer] Specific [place] 1.023 1.001 - 1.035 [facility] pH 6.5 5.0 - 8.0 [facility] Glucose, Urine, Random NEGATIVE NEGATIVE [facility] Bilirubin NEGATIVE NEGATIVE [facility] Ketones NEGATIVE NEGATIVE [facility] Blood NEGATIVE NEGATIVE [facility] Protein NEGATIVE NEGATIVE [facility] Nitrite NEGATIVE NEGATIVE [facility] Leukocyte Esterase NEGATIVE NEGATIVE [facility] WBC 0-5 < OR = 5 /HPF [facility] RBC 0-2 < OR = 2 /HPF [facility] Squamous Epithelial Cells 6-10(A) < OR = 5 /HPF [facility] [employer] [facility] [employer] [facility] Bacteria NONE SEEN NONE SEEN /HPF [employer] Hyaline Cast NONE SEEN NONE SEEN /LPF [employer] Note [employer] Comment: This urine was analyzed for the presence of WBC, RBC, bacteria, casts, and other formed elements. Only those elements seen were reported. Reflexive Urine Culture [employer] Comment:NO CULTURE INDICATED 06/28/2022 8:10 AM EDT 06/28/2022 8:14 AM EDT Narrative [facility] - 06/29/2022 12:07 AM EDT FASTING:YES FASTING: YES Consuelo Hobbs PA-C URINE ORDERABLE S [facility] [employer] [address] [place] [address] * (ABNORMAL) Comprehensive Metabolic Panel (06/28/2022 8:10 AM EDT) Glucose 78 65 - 99 mg/dL [employer] Comment: ? Fasting reference interval Blood Urea Nitrogen (BUN) 12 7 - 25 mg/dL [employer] Creatinine 0.73 0.50 - 1.03 mg/dL [employer] Creatinine w/ eGFR 100 > OR = 60 mL/min/1 .73m2 [employer] Comment: The eGFR is based on the CKD-EPI 2020 equation. To calculate the new eGFR from a previous Creatinine or Cystatin C result, go to https://www.kidney.org/professionals/ kdoqi/gfr%5Fcalculator BUN/Creatinine Ratio NOT APPLICABLE 6 - 22 (calc) [employer] Sodium 139 135 - 146 mmol/L [employer] Potassium 3.9 3.5 - 5.3 mmol/L [employer] Chloride 102 98 - 110 mmol/L [employer] CO2 30 20 - 32 mmol/L [employer] Calcium 9.1 8.6 - 10.4 mg/dL [employer] Protein, Total 6.4 6.1 - 8.1 g/dL [employer] Albumin 4.0 3.6 - 5.1 g/dL [employer] Globulin 2.4 1.9 - 3.7 g/dL (calc) [employer] Albumin/Globuli n Ratio 1.7 1.0 - 2.5 (calc) [employer] Bilirubin, Total 0.3 0.2 - 1.2 mg/dL [employer] Alkaline Phosphatase 76 37 - 153 U/L [employer] Aspartate Aminotrans (AST) 36(H) 10 - 35 U/L [employer] Alanine Aminotrans (ALT) 47(H) 6 - 29 U/L [employer] 06/28/2022 8:10 AM EDT 06/28/2022 8:14 AM EDT Narrative [facility] - 06/29/2022 12:07 AM EDT FASTING:YES FASTING: YES Consuelo Hobbs PA-C LAB BLOOD ORDER KARTHIK [employer] [address] [place] [address] * (ABNORMAL) Lipid panel with nonHDL (06/28/2022 8:10 AM EDT) Cholesterol, Total 219(H) <200 mg/dL [employer] Cholesterol, HDL 73 > OR = 50 mg/dL [employer] Triglycerides 185(H) <150 mg/dL [employer] LDL Cholesterol 115(H) mg/dL (calc) [employer] Comment: Reference range: <100 Desirable range <100 mg/dL for primary prevention; ?? <70 mg/dL for patients with CHD or diabetic patients with > or = 2 CHD risk factors. LDL-C is now calculated using the Elsy calculation, which is a validated novel method providing better accuracy than the Friedewald equation in the estimation of LDL-C. Andi CRANE et al. PRIYA. 2013;310(19): 1200-6027 (http://education.Inside Jobs/faq/LNZ280) Cholesterol/HDL Ratio 3.0 <5.0 (calc) [employer] Non HDL Chol. (LDL+VLDL) 146(H) <130 mg/dL (calc) [employer] Comment: For patients with diabetes plus 1 major ASCVD risk factor, treating to a non-HDL-C goal of <100 mg/dL (LDL-C of <70 mg/dL) is considered a therapeutic option. 06/28/2022 8:10 AM EDT 06/28/2022 8:14 AM EDT Narrative [facility] - 06/29/2022 12:07 AM EDT FASTING:YES FASTING: YES Consuelo Hobbs PA-C LAB BLOOD ORDER KARTHIK [employer] [address] [place] [phone] documented in this encounter Visit Diagnoses Not on filedocumented in this encounter Care Teams Health Care Liaison Relationship Specialty Start Date End Date Consuelo Hobbs PA-C 1210 [facility] 109 [place] [address] PCP - General 05/01/19 Madi Sharp MD [address] [place] [address] [address] [place] [address] Gastroenterology 10/02/19 documented as of this encounter
--- OUTSIDE RECORDS SUMMARY | 2023-10-29 17:46 | XMS_ITS | Encounter Summary ---
Author Organization [facility] Address [address] [place] [address] Care Team Providers Care Garbage Truck Driver Name Role Phone Consuelo Hobbs PA-C Primary Care Provider Madi Sharp MD Unavailable [phone] Encounter Details Date Type Department Care Team (Latest Contact Info) Description 05/23/2022 Travel Social History Tobacco Use Types Packs/Day [...] 11/13/2023 7:45 AM EDT Office Visit [facility] [place] Medical Oncology at [address] [phone] Ricci Carter MD [address] [place] [address] 11/13/2023 8:30 AM EDT Infusion [facility] [place] at [facility] [place] [address] [place] [address] Ricci Carter MD [address] [place] [address] Keiko Hallman MD 80 [facility] [place] [address] 11/20/2023 11:00 AM EDT Appointment [facility] Radiology Shay Mammography 35 [place] [phone] Ricci Carter MD [address] [place] [address] 11/20/2023 11:30 AM EDT Appointment [facility] Radiology Shay Mammography 35 [place] [phone] Ricci Carter MD [address] [place] [address] 03/05/2024 11:00 AM EST Consult [facility] Cardiology [place] 376 [facility] [address] [place] [phone] Ricci Carter MD [address] [place] [address] Jamil Ralph MD [address] [place] [facility] [address] [place] [address] 05/30/2024 9:00 AM EST Office Visit [facility]icians Department of Internal Medicine [facility] 1210 [facility] [address] [place] [phone] Consuelo Hobbs PA-C 1210 [facility] 109 [place], [place] [phone] documented as of this encounter Visit Diagnoses Not on filedocumented in this encounter Care Teams Garbage Truck Driver Relationship Specialty Start Date End Date Consuelo Hobbs PA-C [address] [phone] PCP - General 05/01/19 Madi Sharp MD [address] [place] [address] Gastroenterology 10/02/19 documented as of this encounter
--- OUTSIDE RECORDS SUMMARY | 2023-10-29 17:46 | XMS_ITS | Encounter Summary ---
Author Organization [facility] Address [address] [place] [address] Care Team Providers Care Logging Assistant Name Role Phone Consuelo Hobbs PA-C Primary Care Provider Madi Sharp MD Unavailable [phone] Encounter Details Date Type Department Care Team (Late st Contact Info) Description 07/26/2022 Scanned Document [facility] [place] Medical Oncology at [address] [address] Provider, Dodie, [address] [place] [address] Social History Tobacco Use Types Packs/Day Years [...] Description 11/13/2023 7:45 AM EDT Office Visit [facility] Medical Oncology at [address] [phone] Ricci Carter MD [address] [place], [place] [phone] 11/13/2023 8:30 AM EDT Infusion [facility] [place] at [facility] Outpatient Infusion Center [address] [phone] Ricci Carter MD [address] [place], [place] [phone] Keiko Hallman MD 80 [facility] [place] [address] 11/20/2023 11:[address] [facility] Radiology Shay Mammography [address] [place] [phone] Ricci Carter MD [address] [place], [place] [phone] 11/20/2023 11:[address] [facility] Radiology [facility] Mammography [address] [place] [phone] Ricci Carter MD [address] [place], [place] [phone] 03/05/2024 11:00 AM EST Consult [facility] Cardiology [address] [place] [phone] Ricci Carter MD [address] [place], [place] [phone] Jamil Ralph MD [address] [place] [address] 05/30/2024 9:00 AM EST Office Visit [facility] Department of Internal Medicine [facility] 1210 [facility] [address] [place] [address] Consuelo Hobbs PA-C 1210 [facility] 109 [place], [place] [phone] documented as of this encounter Visit Diagnoses Not on filedocumented in this encounter Care Teams Logging Assistant Relationship Specialty Start Date End Date Consuelo Hobbs PA-C 1210 [facility] 109 [place] [address] PCP - General 05/01/19 Madi Sharp MD 85 [place] [address] Gastroenterology 10/02/19 documented as of this encounter
--- OUTSIDE RECORDS SUMMARY | 2023-10-29 17:46 | XMS_ITS | Encounter Summary ---
Author Organization [facility] Address 100 [place] [address] Care Team Providers Care Administrative Processor Name Role Phone Consuelo Hobbs PA-C Primary Care Provider Madi Sharp MD Unavailable [phone] Encounter Details Date Type Department Care Team (Latest Contact Info) Description 04/08/2022 Travel Social History Tobacco Use Types Packs/Day [...] suspected to have Coronavirus/COVID-19? No / Unsure 04/08/2022 9:34 AM EST documented as of this encounter Plan of Treatment Upcoming Encounters Date Type Department Care Team (Late st Contact Info) Description 11/13/2023 7:45 AM EDT Office Visit [facility] [place] Medical Oncology at [address] [phone] Ricci Carter MD [address] [place] [address] 11/13/2023 8:30 AM EDT Infusion [facility] [place] at [facility] [place] [address] [place] [address] Ricci Carter MD [address] [place] [address] Keiko Hallman MD [address] [facility] [place] [address] 11/20/2023 11:00 AM EDT Appointment [facility] Radiology Shay Mammography 35 [place] [phone] Ricci Carter MD [address] [place] [address] 11/20/2023 11:30 AM EDT Appointment [facility] Radiology Shay Mammography 35 [place] [phone] Ricci Carter MD [address] [place] [address] 03/05/2024 11:00 AM EST Consult [facility] Cardiology [place] 376 [facility] [address] [place] [phone] Ricci Carter MD [address] [place] [address] Jamil Ralph MD [address] [facility] [address] [place] [address] 05/30/2024 9:00 AM EST Office Visit [facility] Physicians Department of Internal Medicine [facility] 1210 [facility] [address] [place] [phone] Consuelo Hobbs PA-C 1210 [facility] 109 [place], [place] [phone] documented as of this encounter Visit Diagnoses Not on filedocumented in this encounter Care Teams Administrative Processor Relationship Specialty Start Date End Date Consuelo Hobbs PA-C [address] [phone] PCP - General 05/01/19 Madi Sharp MD [address] [place] [address] Gastroenterology 10/02/19 documented as of this encounter
--- OUTSIDE RECORDS SUMMARY | 2023-10-29 17:46 | XMS_ITS | Encounter Summary ---
Author Organization [facility] Address [address] [place] [address] Care Team Providers Care Heel Builder Machine Name Role Phone Consuelo Hobbs PA-C Primary Care Provider Madi Sharp MD Unavailable [phone] Encounter Details Date Type Department Care Team (Late st Contact Info) Description 04/26/2022 Scanned Document [facility] Cancer [place] Medical Oncology at [address] [address] Provider, Dodie, [address] [place] [address] Social History Tobacco Use Types Packs/Day Years [...] Description 11/13/2023 7:45 AM EDT Office Visit [facility] Medical Oncology at [address] [phone] Ricci Carter MD [address] [place], [place] [id number] 11/13/2023 8:30 AM EDT Infusion [facility] Cancer [place] at [facility] [address] [phone] Ricci Carter MD [address] [place], [place] [phone] Keiko Hallman MD 80 [facility] [place] [address] 11/20/2023 11:00 AM EDT Appointment [facility] Radiology [facility] [address] [place] [phone] Ricci Carter MD [address] [place], [place] [id number] 11/20/2023 11:30 AM EDT Appointment [facility] Radiology [place] M[facility] [address] [place] [phone] Ricci Carter MD [address] [place], [place] [id number] 03/05/2024 11:[address] [facility] Cardiology [address] [place] [phone] Ricci Carter MD [address] [place], [place] [phone] Jamil Ralph MD [address] [place] [address] 05/30/2024 9:00 AM EST Office Visit [facility] Department of Internal Medicine [facility] 1210 [facility] [address] [place] [address] Consuelo Hobbs PA-C 1210 [facility] 109 [place], [place] [phone] documented as of this encounter Visit Diagnoses Not on filedocumented in this encounter Care Teams Heel Builder Machine Relationship Specialty Start Date End Date Consuelo Hobbs PA-C 1210 [facility] 109 [place] [address] PCP - General 05/01/19 Madi Sharp MD [address] [address] Gastroenterology 10/02/19 documented as of this encounter
--- OUTSIDE RECORDS SUMMARY | 2023-10-29 17:46 | XMS_ITS | Encounter Summary ---
Author Organization [facility] Address [address] [place] [address] Care Team Providers Care Hoistman Name Role Phone Consuelo Hobbs PA-C Primary Care Provider Madi Sharp MD Unavailable [phone] Encounter Details Date Type Department Care Team (Late st Contact Info) Description 06/08/2022 Orders Only [facility] Department of Internal Medicine & Nephrology [place] [address] [place] [address] [address] [place] [address] Consuelo Hobbs PA-C 1218 [facility] [address] [place], [place] [phone] Abnormal mammogram of right breast (Primary Dx) Social History Tobacco Use Types [...] 11/13/2023 7:45 AM EDT Office Visit [facility] Medical Oncology at [address] [phone] Ricci Carter MD [address] [place], [place] [id number] 11/13/2023 8:30 AM EDT Infusion [facility] Cancer [place] at [facility] Outpatient Infusion Center [address] [phone] Ricci Carter MD [address] [place], [place] [phone] Keiko Hallman MD 80 [facility] [place] [address] 11/20/2023 11:00 AM EDT Appointment [facility] Radiology [facility] Mamm[facility] [address] [place] [address] [phone] Ricci Carter MD [address] [place], [place] [address] 11/20/2023 11:30 AM EDT Appointment [facility] Radiology [place] [facility] [address] [place] [phone] Ricci Carter MD [address] [place], [place] [id number] 03/05/2024 11:00 AM EST Consult [facility] Cardiology [address] [place] [phone] Ricci Carter MD [address] [place] [address] Jamil Ralph MD [address] [place] [address] 05/30/2024 9:00 AM EST Office Visit [facility] Department of Internal Medicine [facility] 1210 [facility] [address] [place] [address] Consuelo Hobbs PA-C 1210 [facility] [address] [place] [address] documented as of this encounter Procedures Procedure Name Priority Date/Time Associated Diagnosis Comments MM MAMMO DIAGNOSTIC W/ TOMOSYNTHESIS-RIGHT Routine 07/27/2022 10:15 AM EDT Abnormal mammogram of right breast US BREAST DIAGNOSTIC COMPLETE-RIGHT Routine 07/27/2022 10:15 AM EDT Abnormal mammogram of right breast documented in this encounter Results * MM Breast tomosynthesis diagnostic-Right (07/27/2022 10:15 AM EDT) Anatomical Region Laterality Modality Breast Right Mammography 07/27/2022 9:15 AM EDT 07/27/2022 9:15 AM EDT Impressions 07/27/2022 10:15 AM EDT There is no mammographic or sonographic evidence of malignancy. Routine follow-up mammogram in 1 year is recommended. The patient was informed of these findings at the time of the exam. The patient will receive a lay summary of the results of this breast imaging exam. Lay summaries for mammography examinations will also identify the patients personal breast tissue composition as required by state law. BIRADS Category 2: Benign Finding(s) Thank you for referring your patient to us, Cristóbal Sandoval MD [id number] (Electronically Signed - 07/27/2022 10:15) Copy: CARLOS PADRON MD [address] [facility], [place] [address] RICCI CARTER MD [facility] [place] [address] [facility], [place] [address] Narrative 07/27/2022 10:15 AM EDT HISTORY: Patient is 52 years old and is seen for additional evaluation requested at current screening. FILMS COMPARED: The present examination has been [...] right breast, lateral aspect seen on 06/02/2022. ??The finding does not persist on the present exam. ULTRASOUND FINDINGS: Targeted high resolution grayscale sonography was performed of the area of concern. The finding in question is not seen on ultrasound. Procedure Note Cristóbal Sandoval MD - 07/27/2022 HISTORY: Patient is 52 years old and is seen for additional evaluation requested atcurrent screening. FILMS COMPARED: The present examination has been compared to a prior imaging study dated06/02/2022. FERNANDO STATEMENT: The following digital mammographic views were obtained: right craniocaudalspot compression with tomosynthesis, right mediolateral withtomosynthesis. MAMMOGRAM FINDINGS: There are scattered fibroglandular densities. (ACR BIRADS density Categoryb) * Additional evaluation was performed for the area of architecturaldistortion in the right breast, lateral aspect seen on 06/02/2022. Thefinding does not persist on the present exam. ULTRASOUND FINDINGS: Targeted high resolution grayscale sonography was performed of the area ofconcern. The finding in question is not seen on ultrasound. IMPRESSION: There is no mammographic or sonographic evidence of malignancy. Routine follow-up mammogram in 1 year is recommended. The patient was informed of these findings at the time of the exam. The patient will receive a lay summary of the results of this breastimaging exam. Lay summaries for mammography examinations will alsoidentify the patients personal breast tissue composition as required bystate law. BIRADS Category 2: Benign Finding(s) Thank you for referring your patient to us, Cristóbal Sandoval MD [id number] (Electronically Signed - 07/27/2022 10:15) Copy: CARLOS PADRON MD [address] [place] [address] [phone] RICCI CARTER MD [address] [address] Consuelo WINKLER-Nando IMG MAMMOGRAPHY ORDERABLES * US Breast diagnostic complete-Right (07/27/2022 10:15 AM EDT) Anatomical Region Laterality Modality Breast Right Ultrasound 07/27/2022 10:0 0 AM EDT 07/27/2022 10:00 AM EDT Impressions 07/27/2022 10:15 AM EDT There is no mammographic or sonographic evidence of malignancy. Routine follow-up mammogram in 1 year is recommended. The patient was informed of these findings at the time of the exam. The patient will receive a lay summary of the results of this breast imaging exam. Lay summaries for mammography examinations will also identify the patients personal breast tissue composition as required by state law. BIRADS Category 2: Benign Finding(s) Thank you for referring your patient to us, Cristóbal Sandoval MD [id number] (Electronically Signed - 07/27/2022 10:15) Copy: CARLOS PADRON MD [address] [place] [address] RICCI CARTER MD [facility] [address] [address] Narrative 07/27/2022 10:15 AM EDT HISTORY: Patient is 52 years old and is seen for additional evaluation requested at current screening. FILMS COMPARED: The present examination has been [...] right breast, lateral aspect seen on 06/02/2022. ??The finding does not persist on the present exam. ULTRASOUND FINDINGS: Targeted high resolution grayscale sonography was performed of the area of concern. The finding in question is not seen on ultrasound. Procedure Note Cristóbal Snadoval MD - 07/27/2022 HISTORY: Patient is 52 years old and is seen for additional evaluation requested atcurrent screening. FILMS COMPARED: The present examination has been compared to a prior imaging study dated06/02/2022. FERNANDO STATEMENT: The following digital mammographic views were obtained: right craniocaudalspot compression with tomosynthesis, right mediolateral withtomosynthesis. MAMMOGRAM FINDINGS: There are scattered fibroglandular densities. (ACR BIRADS density Categoryb) * Additional evaluation was performed for the area of architecturaldistortion in the right breast, lateral aspect seen on 06/02/2022. Thefinding does not persist on the present exam. ULTRASOUND FINDINGS: Targeted high resolution grayscale sonography was performed of the area ofconcern. The finding in question is not seen on ultrasound. IMPRESSION: There is no mammographic or sonographic evidence of malignancy. Routine follow-up mammogram in 1 year is recommended. The patient was informed of these findings at the time of the exam. The patient will receive a lay summary of the results of this breastimaging exam. Lay summaries for mammography examinations will alsoidentify the patients personal breast tissue composition as required bystate law. BIRADS Category 2: Benign Finding(s) Thank you for referring your patient to us, Cristóbal Sandoval MD [id number] (Electronically Signed - 07/27/2022 10:15) Copy: CARLOS PADRON MD [address] [place], [place] [address] RICCI CARTER MD [facility]- [address] [address] Consuelo Hobbs PA-C IMG US ORDERABL ES documented in this encounter Visit Diagnoses Diagnosis Abnormal mammogram of right breast- Primary documented in this encounter Care Teams Hoistman Relationship Specialty Start Date End Date Consuelo Hobbs PA-C [address] [place] [address] PCP - General 05/01/19 Madi Sharp MD [address] [place] [address] Gastroenterology 10/02/19 documented as of this encounter
--- OUTSIDE RECORDS SUMMARY | 2023-10-29 17:46 | XMS_ITS | Encounter Summary ---
Author Organization [facility] Address [address] [place] [address] Care Team Providers Care [place] Department Manager Name Role Phone Consuelo Hobbs PA-C Primary Care Provider Madi Sharp MD Unavailable [phone] Reason for Visit * Episode Based Medications (Routine) - Authorized Specialty Diagnoses / Procedures Referred By Contac t Referred To Contact Diagnoses Carcinoid tumor of ileum, unspecified whether malignant (HCC) Keiko Hallman MD 80 [facility] Med [place] [address] Med On[address] [phone] Referral ID Status Reason Start Date Expiration Date V isits Requested Visits Authorized [id number] Authorized 04/29/2022 11/27/2023 5 2 Encounter Details Date Type Department Care Team (Late st Contact Info) Description 04/08/2022 10:00 AM EST Infusion [facility] Cancer [place] at [facility] Outpatient Infusion [facility] [address] [phone] Ricci Carter MD [address] [place] [address] Keiko Hallman MD 80 [facility] [place] [address] Sienna Alaniz RN 80 [place] [address] Carcinoid tumor of ileum, unspecified whether malignant [...] AM EST documented as of this encounter Last Filed Vital Signs Vital Sign Reading Time Taken Comments Blood Pressure 139/71 04/08/2022 9:42 AM EST Pulse 77 04/08/2022 9:42 AM EST Temperature 35.1 ??C (95.1 ??F) 04/08/2022 9:42 AM ES T Respiratory Rate 16 04/08/2022 9:42 AM EST Oxygen Saturation 100% 04/08/2022 9:42 AM EST Inhaled Oxygen Concentration - - Weight 72.8 kg (160 lb 6.4 oz) 04/08/2022 9:42 A M EST Height 160 cm (5' 2.99) 04/08/2022 9:42 AM EST Body Mass Index 28.42 04/08/2022 9:42 AM EST documented in this encounter Plan of Treatment Upcoming Encounters Date Type Department Care Team (Late st Contact Info) Description 11/13/2023 7:45 AM EDT Office Visit [facility] Cancer [place] Medical Oncology at [address] [phone] Ricci Carter MD [address] [place] [phone] 11/13/2023 8:30 AM EDT Infusion [facility] Cancer [place] at [facility] Out[facility]fusion [facility] [address] [phone] Ricci Carter MD [address] [place], [place] [address] Keiko Hallman MD 80 [facility] [place] [address] 11/20/2023 11:00 AM EDT Appointment [facility] Radiology Shay Mammography [address] [place] [phone] Ricci Carter MD [address] [place], [place] [address] 11/20/2023 11:30 AM EDT Appointment [facility] Radiology [facility] Mammography [address] [place] [phone] Ricci Carter MD [address] [place], [place] [address] 03/05/2024 11:00 AM EST Consult [facility] Cardiology [address] [place] [phone] Ricci Carter MD [address] [place], [place] [phone] Jamil Ralph MD [address] [place] [facility] [address] [place], [place] [address] 05/30/2024 9:00 AM EST Office Visit [facility] Department of Internal Medicine [facility] 1210 [facility] 109 [place], [place] [phone] Consuelo Hobbs PA-C 1210 [facility] 109 [place], [place] [address] documented as of this encounter Visit Diagnoses Diagnosis Carcinoid tumor of ileum, unspecified whether malignant (HCC)- Primary documented in this encounter Administered Medications Inactive Administered Medications - up to 1 most recent administrations Medication Order MAR Action Action Date Dose Rate Site octreotide (SandoSTATIN LAR) IM injection 40 mg 40 mg, Intramuscular, Once, On Mon04/08/22 at 1030, For 1 dose, Administer IM intragluteal (avoid deltoid administration). For intraMUSCULAR use ONLY. Must be administered immediately after mixing. Given 04/08/2022 9:50 AM EST 40 mg Other (See Comments) documented in this encounter Care Teams [place] Department Manager Relationship Specialty Start Date End Date Consuelo oHbbs PA-C [address] [place] [phone] PCP - General 05/01/19 Madi Sharp MD [address] [place] [address] Gastroenterology 10/02/19 documented as of this encounter
--- OUTSIDE RECORDS SUMMARY | 2023-10-29 17:46 | XMS_ITS | Encounter Summary ---
Author Organization [facility] Address [address] [place] [address] Care Team Providers Care Mushroom Laborer Name Role Phone Consuelo Hobbs PA-C Primary Care Provider Madi Sharp MD Unavailable [phone] Encounter Details Date Type Department Care Team (Late st Contact Info) Description 06/09/2022 Telephone [facility] Department of Internal Medicine & Nephrology [place] 85 [facility] [address] [place] [address] Consuelo Hobbs PA-C 1210 [facility] [address] [place], [place] [phone] Social History Tobacco Use Types Packs/Day Years [...] AM EST documented as of this encounter Miscellaneous Notes * Telephone Encounter - Lilli Sexton MA - 06/09/2022 11:33 AM EST No answer, l/m for pt on cell. * Telephone Encounter - Lilli Sexton MA - 06/09/2022 11:33 AM EST ----- Message from Consuelo Hobbs PA-C sent at 06/08/2022 12:17 PM EST ----- Please let pt know her MAMMO shows an areas in the right breast that needs further imaging. She needs to call JR to schedule the follow up study. I'll place the orders. thanks documented in this encounter Plan of Treatment Upcoming Encounters Date Type Department Care Team (Late st Contact Info) Description 11/13/2023 7:45 AM EDT Office Visit [facility] Medical Oncology at [address] [phone] Ricci Carter MD [address] [place] [address] 11/13/2023 8:30 AM EDT Infusion [facility] Cancer [place] at [facility] Outpatient Infusion Center [address] [phone] Ricci Carter MD [address] [place] [address] Keiko Hallman MD 80 [facility] [place] [address] 11/20/2023 11:00 AM EDT Appointment [facility] Radiology [place] Mammography [address] [place] [phone] Ricci Carter MD [address] [place], [place] [phone] 11/20/2023 11:30 AM EDT Appointment [facility] Radiology Shay Mammography 35 [place] [phone] Ricci Carter MD [address] [place] [address] 03/05/2024 11:00 AM EST Consult [facility] Cardiology [place] [address] [facility] [address] [place] [phone] Ricci Carter MD [address] [place], [place] [phone] Jamil Ralph MD [address] [facility] [address] [place] [address] 05/30/2024 9:00 AM EST Office Visit [facility] Department of Internal Medicine [facility] 1210 [facility] [address] [place] [address] Consuelo Hobbs PA-C [address] [address] documented as of this encounter Visit Diagnoses Not on filedocumented in this encounter Care Teams Mushroom Laborer Relationship Specialty Start Date End Date Consuelo Hobbs PA-C [address] [address] PCP - General 05/01/19 Madi Sharp MD [address] [place] [address] Gastroenterology 10/02/19 documented as of this encounter
--- OUTSIDE RECORDS SUMMARY | 2023-10-29 17:46 | XMS_ITS | Encounter Summary ---
Author Organization [facility] Address [address] [place] [address] Care Team Providers Care Horse Breaker Name Role Phone Consuelo Hobbs PA-C Primary Care Provider Madi Sharp MD Unavailable [phone] Encounter Details Date Type Department Care Team (Late st Contact Info) Description 04/26/2022 Scanned Document [facility] Cancer [place] Medical Oncology at [address] [phone] Provider, Dodie, [address] [place] [address] Social History Tobacco Use Types Packs/Day Years [...] Description 11/13/2023 7:45 AM EDT Office Visit [facility] Medical Oncology at [address] [phone] Ricci Carter MD [address] [place], [place] [phone] 11/13/2023 8:30 AM EDT Infusion [facility] Cancer [place] at [facility] Outpatient Infusion Center [address] [phone] Ricci Carter MD [address] [place], [place] [phone] Keiko Hallman MD [address] [facility] [place] [address] 11/20/2023 11:00 AM EDT Appointment [facility] Radiology Sh[place] Mammography [address] [place] [phone] Ricci Carter MD [address] [place], [place] [address] 11/20/2023 11:30 AM EDT Appointment [facility] Radiology [place] Mammography [address] [place] [phone] Ricci Carter MD [address] [place], [place] [address] 03/05/2024 11:00 AM EST Consult [facility] [address] [place] [phone] Ricci Carter MD [address] [place], [place] [phone] Jamil Ralph MD [address] [place] [address] 05/30/2024 9:00 AM EST Office Visit [facility] Department of Internal Medicine [facility] [address] [facility] [address] [place] [address] Consuelo Hobbs PA-C 1210 [facility] 109 [place], [place] [phone] documented as of this encounter Visit Diagnoses Not on filedocumented in this encounter Care Teams Horse Breaker Relationship Specialty Start Date End Date Consuelo Hobbs PA-C 1210 [facility] 109 [place] [address] PCP - General 05/01/19 Madi Sharp MD [address] [address] Gastroenterology 10/02/19 documented as of this encounter
--- OUTSIDE RECORDS SUMMARY | 2023-10-29 17:46 | XMS_ITS | Encounter Summary ---
Author Organization [facility] Address [address] [place] [address] Care Team Providers Care Marble Machine Operator Name Role Phone Consuelo Hobbs PA-C Primary Care Provider Madi Sharp MD Unavailable [phone] Reason for Visit * Reason Comments Injections * Episode Based Medications (Routine) - Authorized Specialty Diagnoses / Procedures Referred By Contbalbir t Referred To Contact Diagnoses Carcinoid tumor of ileum, unspecified whether malignant (HCC) Keiko Hallman MD 80 [facility] [place] [address] [address] Referral ID Status Reason Start Date Expiration Date V isits Requested Visits Authorized [id number] Authorized 04/29/2022 11/27/2023 5 2 Encounter Details Date Type Department Care Team (Late st Contact Info) Description 05/23/2022 11:00 AM EST Infusion [facility] Cancer [place] at [facility] Outpatient Infusion Center [address] [phone] Ricci Carter MD [address] [place] [address] Keiko Hallman MD 80 [facility] [place] [address] Brittany Goins RN 80 [place] [address] Carcinoid tumor of ileum, unspecified whether malignant [...] Sign Reading Time Taken Comments Blood Pressure 132/69 05/23/2022 10:55 AM EST Pulse 87 05/23/2022 10:55 AM EST Temperature 36.2 ??C (97.2 ??F) 05/23/2022 10:[address] Respiratory Rate 16 05/23/2022 10:55 AM EST Oxygen Saturation 98% 05/23/2022 10:55 AM EST Inhaled Oxygen Concentration - - Weight 73.1 kg (161 lb 1.6 oz) 05/23/2022 10:55 AM EST Height 160 cm (5' 2.99) 05/23/2022 10:55 AM EST Body Mass Index 28.54 05/23/2022 10:55 AM EST documented in this encounter Plan of Treatment Upcoming Encounters Date Type Department Care Team (Late st Contact Info) Description 11/13/2023 7:45 AM EDT Office Visit [facility] [place] Medical Oncology at [address] [phone] Ricci Carter MD 85 [place] [address] 11/13/2023 8:30 AM EDT Infusion [facility] [place] at [facility] Outpatient Infusion Center [address] [phone] Ricci Carter MD [address] [place] [phone] Keiko Hallman MD 80 [facility] [place] [address] 11/20/2023 11:00 AM EDT Appointment [facility] Radiology [facility] [address] [place] [phone] Ricci Carter MD [address] [place] [address] 11/20/2023 11:30 AM EDT Appointment [facility] Radiology [facility] 35 [place] [phone] Ricci Carter MD [address] [place] [address] 03/05/2024 11:00 AM EST Consult [facility] Cardiology [place] [address] [facility] [address] [place] [phone] Ricci Carter MD [address] [place] [address] Jamil Ralph MD [address] [facility] [address] [place], [place] [phone] 05/30/2024 9:00 AM EST Office Visit [facility] 1210 [facility] 109 [place], [place] [phone] Consuelo Hobbs PA-C 1210 [facility] 109 [place], [place] [phone] documented as of this encounter Visit Diagnoses Diagnosis Carcinoid tumor of ileum, unspecified whether malignant (HCC)- Primary documented in this encounter Administered Medications Inactive Administered Medications - up to 1 most recent administrations Medication Order MAR Action Action Date Dose Rate Site octreotide (SandoSTATIN LAR) IM injection 40 mg 40 mg, Intramuscular, Once, On Mon05/23/22 at 1130, For 1 dose, Administer IM intragluteal (avoid deltoid administration). For intraMUSCULAR use ONLY. Must be administered immediately after mixing. Given 05/23/2022 11:00 AM EST 40 mg Left Gluteal Upper Outer Quadrant documented in this encounter Care Teams Marble Machine Operator Relationship Specialty Start Date End Date Consuelo Hobbs PA-C [address] [phone] PCP - General 05/01/19 Madi Sharp MD [address] [place], [place] [phone] Gastroenterology 10/02/19 documented as of this encounter
--- OUTSIDE RECORDS SUMMARY | 2023-10-29 17:46 | XMS_ITS | Encounter Summary ---
Author Organization [facility] Address [address] [place] [address] Care Team Providers Care Web Services Architect Name Role Phone Consuelo Hobbs PA-C Primary Care Provider Madi Sharp MD Unavailable [phone] Encounter Details Date Type Department Care Team (Late st Contact Info) Description 05/20/2022 Orders Only [facility] Cancer [place] Medical Oncology at [address] [phone] Viktoria Henderson, FEATHEREDGE MACHINE OPERATOR [address] [place] [address] Social History Tobacco Use Types Packs/Day Years [...] Description 11/13/2023 7:45 AM EDT Office Visit [facility] Medical Oncology at [address] [phone] Ricci Carter MD [address] [place], [place] [phone] 11/13/2023 8:30 AM EDT Infusion [facility] Cancer [place] at [facility] Outpatient Infusion Center [address] [phone] Ricci Carter MD [address] [place], [place] [phone] Keiko Hallman MD 80 [facility] [place] [address] 11/20/2023 11:00 AM EDT Appointment [facility] Radiology [facility] [address] [place] [phone] Ricci Carter MD [address] [place], [place] [phone] 11/20/2023 11:30 AM EDT Appointment [facility] Radiology [facility] [address] [place] [address] [phone] Ricci Carter MD [address] [place], [place] [phone] 03/05/2024 11:00 AM EST Consult [facility] Cardiology [address] [place] [phone] Ricci Carter MD [address] [place] [address] Jamil Ralph MD [address] [place] [facility] [address] [place] [address] 05/30/2024 9:00 AM EST Office Visit [facility] Department of Internal Medicine [facility] 1210 [facility] [address] [place] [address] Consuelo Hobbs PA-C 1210 [facility] 109 [place] [address] documented as of this encounter Visit Diagnoses Not on filedocumented in this encounter Care Teams Web Services Architect Relationship Specialty Start Date End Date Consuelo Hobbs PA-C [address] [place] [address] 109 [place] [address] PCP - General 05/01/19 Madi Sharp MD [address] [place] [address] Gastroenterology 10/02/19 documented as of this encounter
--- OUTSIDE RECORDS SUMMARY | 2023-10-29 17:46 | XMS_ITS | Encounter Summary ---
Author Organization [facility] Address [address] [place] [address] Care Team Providers Care Residence Supervisor Name Role Phone Consuelo Hobbs PA-C Primary Care Provider Madi Sharp MD Unavailable [phone] Reason for Visit * Reason Comments Injections * Episode Based Medications (Routine) - Authorized Specialty Diagnoses / Procedures Referred By Contbalbir t Referred To Contact Diagnoses Carcinoid tumor of ileum, unspecified whether malignant (HCC) Keiko Hallman MD 80 [facility] [place] [address] [phone] Referral ID Status Reason Start Date Expiration Date V isits Requested Visits Authorized [id number] Authorized 04/29/2022 11/27/2023 5 2 Encounter Details Date Type Department Care Team (Late st Contact Info) Description 04/29/2022 9:00 AM EST Infusion [facility] [place] [facility] Outpatient Infusion Center [address] [phone] Ricci Carter MD [address] [place] [address] Keiko Hallman MD 80 [facility] [place] [address] Jayshree Araiza RN [address] [place] [address] Carcinoid tumor of ileum, unspecified whether malignant [...] Sign Reading Time Taken Comments Blood Pressure 162/89 04/29/2022 8:39 AM EST Pulse 81 04/29/2022 8:39 AM EST Temperature 35.6 ??C (96.1 ??F) 04/29/2022 8:39 AM ES T Respiratory Rate 16 04/29/2022 8:39 AM EST Oxygen Saturation 100% 04/29/2022 8:39 AM EST Inhaled Oxygen Concentration - - Weight 73.1 kg (161 lb 3.2 oz) 04/29/2022 8:39 A M EST Height 160 cm (5' 2.99) 04/29/2022 8:39 AM EST Body Mass Index 28.56 04/29/2022 8:39 AM EST documented in this encounter Plan of Treatment Upcoming Encounters Date Type Department Care Team (Late st Contact Info) Description 11/13/2023 7:45 AM EDT Office Visit [facility] [place] Medical Oncology at [address] [phone] Ricic Carter MD [address] [place] [phone] 11/13/2023 8:30 AM EDT Infusion [facility] [place] [facility] Out[facility]fusion [facility] [address] [phone] Ricci Carter MD [address] [place] [phone] Keiko Hallman MD 80 [facility] [place] [address] 11/20/2023 11:00 AM EDT Appointment [facility] [place] [facility] Radiology [facility] [address] [place] [address] [phone] Ricci Carter MD [address] [place], [place] [phone] 11/20/2023 11:30 AM EDT Appointment [facility] [place] [facility] Radiology [facility]amm[facility] [address] [place] [phone] Ricci Carter MD [address] [place] [phone] 03/05/2024 11:00 AM EST Consult [facility] Cardiology [place] [address] [facility] [address] [place] [phone] Ricci Carter MD [address] [place] [address] Jamil Ralph MD [address] [place] [facility] [address] [place], [place] [phone] 05/30/2024 9:00 AM EST Office Visit [facility] Physicians Department of Internal Medicine [facility] [address] [facility] 109 [place], [place] [phone] Consuelo Hobbs PA-C [address] [place] [phone] documented as of this encounter Visit Diagnoses Diagnosis Carcinoid tumor of ileum, unspecified whether malignant (HCC)- Primary documented in this encounter Administered Medications Inactive Administered Medications - up to 1 most recent administrations Medication Order MAR Action Action Date Dose Rate Site octreotide (SandoSTATIN LAR) IM injection 40 mg 40 mg, Intramuscular, Once, On Mon04/29/22 at 0930, For 1 dose, Administer IM intragluteal (avoid deltoid administration). For intraMUSCULAR use ONLY. Must be administered immediately after mixing. Given 04/29/2022 9:24 AM EST 40 mg Other (See Comments) documented in this encounter Care Teams Residence Supervisor Relationship Specialty Start Date End Date Consuelo Hobbs PA-C [address] [place] [phone] PCP - General 05/01/19 Madi Sharp MD [address] [place] [address] Gastroenterology 10/02/19 documented as of this encounter
--- OUTSIDE RECORDS SUMMARY | 2023-10-29 17:46 | XMS_ITS | Encounter Summary ---
Author Organization [facility] Address [address] [place] [address] Care Team Providers Care [employer] Barista Name Role Phone Consuelo Hobbs PA-C Primary Care Provider Madi Sharp MD Unavailable [phone] Encounter Details Date Type Department Care Team (Late st Contact Info) Description 06/15/2022 Erroneous Encounter [facility] [address] [place] [phone] Lucian Choi MD 1211 [facility] [address] [place] [address] Social History Tobacco Use Types Packs/Day Years [...] 11/13/2023 7:45 AM EDT Office Visit [facility] Medical Oncology at [address] [phone] Ricci Carter MD [address] [place] [place], [place] [phone] 11/13/2023 8:30 AM EDT Infusion [facility] Cancer [place] at [facility] Outpatient Infusion Center [address] [phone] Ricci Carter MD [address] [place] [place], [place] [phone] Keiko Hallman MD 80 [facility] [place] [address] 11/20/2023 11:00 AM EDT Appointment [facility] Radiology [facility] Mammography [address] [place] [phone] Ricci Carter MD [address] [place] [place], [place] [phone] 11/20/2023 11:30 AM EDT Appointment [facility] Radiology [facility] [facility] [address] [place] [address] [phone] Ricci Carter MD [address] [place], [place] [phone] 03/05/2024 11:00 AM EST Consult [facility] Cardiology [address] [place] [phone] Ricci Carter MD [address] [place] [phone] Jamil Ralph MD [address] [facility] [address] [place] [phone] 05/30/2024 9:00 AM EST Office Visit [facility] Department of Internal Medicine [facility] 1210 [facility] [address] [place] [address] Consuelo Hobbs PA-C 1210 [facility] 109 [place] [address] documented as of this encounter Visit Diagnoses Not on filedocumented in this encounter Care Teams Starbucks Barista Relationship Specialty Start Date End Date Consuelo Hobbs PA-C [address] [place] [address] 109 [place] [address] PCP - General 05/01/19 Madi Sharp MD [address] [place] [address] Gastroenterology 10/02/19 documented as of this encounter
--- OUTSIDE RECORDS SUMMARY | 2023-10-29 17:46 | XMS_ITS | Encounter Summary ---
Author Organization [facility] Address [address] [place] [address] Care Team Providers Care Desktop Support Technician Name Role Phone Consuelo Hobbs PA-C Primary Care Provider Madi Sharp MD Unavailable [phone] Reason for Visit * Reason Comments Injections * Episode Based Medications (Routine) - Authorized Specialty Diagnoses / Procedures Referred By Contbalbir t Referred To Contact Diagnoses Carcinoid tumor of ileum, unspecified whether malignant (HCC) Keiko Hallman MD 80 [facility] [place] [address] [address] [phone] Referral ID Status Reason Start Date Expiration Date V isits Requested Visits Authorized [id number] Authorized 04/29/2022 11/27/2023 5 2 Encounter Details Date Type Department Care Team (Late st Contact Info) Description 07/26/2022 8:30 AM EDT Infusion [facility] Cancer [place] at [facility] Outpatient Infusion Center [address] [phone] Ricci Carter MD [address] [place] [address] Keiko Hallman MD 80 [facility] [place] [address] Brittany Goins RN 80 [place] [address] Carcinoid tumor of ileum, unspecified whether malignant [...] Sign Reading Time Taken Comments Blood Pressure 138/67 07/26/2022 8:38 AM EDT Pulse 86 07/26/2022 8:38 AM EDT Temperature 35.6 ??C (96 ??F) 07/26/2022 8:38 AM EDT Respiratory Rate 16 07/26/2022 8:38 AM EDT Oxygen Saturation 98% 07/26/2022 8:38 AM EDT Inhaled Oxygen Concentration - - Weight 73.6 kg (162 lb 4.8 oz) 07/26/2022 8:38 A M EDT Height 160 cm (5' 2.99) 07/26/2022 8:38 AM EDT Body Mass Index 28.76 07/26/2022 8:38 AM EDT documented in this encounter Plan of Treatment Upcoming Encounters Date Type Department Care Team (Late st Contact Info) Description 11/13/2023 7:45 AM EDT Office Visit [facility] [place] Medical Oncology at [address] [phone] Ricci Carter MD [address] [place] [address] 11/13/2023 8:30 AM EDT Infusion [facility] Cancer [place] at [facility] Outpatient Infusion Center [place] [address] [place] [phone] Ricci Carter MD [address] [place], [place] [phone] Keiko Hallman MD 80 [facility] [place] [address] 11/20/2023 11:00 AM EDT Appointment [facility] Radiology [facility] [address] [place] [address] [phone] Ricci Carter MD [address] [place], [place] [phone] 11/20/2023 11:30 AM EDT Appointment [facility] Radiology [facility] Mammography 35 [place] [phone] Ricci Carter MD [address] [place], [place] [phone] 03/05/2024 11:00 AM EST Consult [facility] Cardiology [place] [address] [facility] [address] [place] [phone] Ricci Carter MD [address] [place] [address] Jamil Ralph MD [address] [place] [facility] [address] [place], [place] [phone] 05/30/2024 9:00 AM EST Office Visit [facility] Department of Internal Medicine [facility] [address] [phone] Consuelo Hobbs PA-C [address] [phone] documented as of this encounter Visit Diagnoses Diagnosis Carcinoid tumor of ileum, unspecified whether malignant (HCC)- Primary documented in this encounter Administered Medications Inactive Administered Medications - up to 1 most recent administrations Medication Order MAR Action Action Date Dose Rate Site octreotide (SandoSTATIN LAR) IM injection 40 mg 40 mg, Intramuscular, Once, On Mon07/26/22 at 0930, For 1 dose, Administer IM intragluteal (avoid deltoid administration). For intraMUSCULAR use ONLY. Must be administered immediately after mixing. Given 07/26/2022 8:45 AM EDT 40 mg Left Gluteal Upper Outer Quadrant documented in this encounter Care Teams Desktop Support Technician Relationship Specialty Start Date End Date Consuelo Hobbs PA-C [address] [place] [phone] PCP - General 05/01/19 Madi Sharp MD [address] [place] [address] Gastroenterology 10/02/19 documented as of this encounter
--- OUTSIDE RECORDS SUMMARY | 2023-10-29 17:46 | XMS_ITS | Encounter Summary ---
Author Organization [facility] Address [address] [place] [address] Care Team Providers Care Stringer Up Soldering Machine Name Role Phone Consuelo Hobbs PA-C Primary Care Provider Madi Sharp MD Unavailable [phone] Reason for Visit * Reason Comments Follow-up Encounter Details Date Type Department Care Team (Late st Contact Info) Description 06/07/2022 9:00 AM EST Office Visit [facility] Department of Internal Medicine & Nephrology [address] [phone] Consuelo Hobbs PA-C [address] [phone] Bilateral impacted cerumen (Primary Dx); Need for shingles vaccine Social History Tobacco Use Types Packs/Day Years [...] Sign Reading Time Taken Comments Blood Pressure 122/86 06/07/2022 8:54 AM EST Pulse 87 06/07/2022 8:54 AM EST Temperature - - Respiratory Rate - - Oxygen Saturation 99% 06/07/2022 8:54 AM EST Inhaled Oxygen Concentration - - Weight 74.8 kg (165 lb) 06/07/2022 8:54 AM EST Height 160 cm (5' 3) 06/07/2022 8:54 AM EST Body Mass Index 29.23 06/07/2022 8:54 AM EST documented in this encounter Progress Notes * Consuelo Hobbs PA-C - 06/07/2022 9:00 AM EST Images from the original note were not included. [address] [place] [phone] Date: 06/07/2022 Patient Name: Rody Sotelo Date of : 1970 Patient Care Team Patient Care Team: Consuelo Hobbs PA-C as PCP - General Madi Sharp MD (Gastroenterology) Reason for Visit Chief Complaint Patient presents with ??? Follow-up HPI Pt presents for ear flushing and to get her shingrix shot We did not give it at her CPE 05/26/2022 because she had been planning on getting her bivalent shot the following week. She ended up not getting it. She will hold off on getting the bivalent unless she feels fine with this shot. Past Medical History Past Medical History: Diagnosis [...] ENDOSCOPY UPPER; Surgeon: Madi Sharp MD; Location: [facility]; Service: Gastroenterology; Laterality: N/A; ??? HEMICOLECTOMY [...] (BUSPAR) 10 MG tablet 1 tablet, Oral, 3 times daily ??? calcium carbonate (OS-ANGELICA) 600 mg, Oral, Daily with breakfast ??? Cannabis (MARIJUANA) Misc Medical Prescription Strength As needed ??? colestipol (COLESTID) 1 g, Oral, 2 times daily, With a [...] capsule 1 capsule, Oral, Daily ??? pancrelipase, Xqz-Ycuj-Qrjy, (Creon) [address]-[address]557 units Cap DR Particles capsule 36,000 units of lipase, Oral, 3 times daily with meals, Dose is in units of lipase. ??? rizatriptan (MAXALT-HE[facility] SERVICES DIRECTOR) 10 MG disintegrating tablet DISSOLVE ONE TABLET BY MOUTH EVERY DAY NEEDED ??? vitamin D3 (CHOLECALCIFEROL) 50,000 Units, Oral, Weekly ROS Review of Systems Vitals Vitals: 06/07/22 0854 BP: 122/86 Pulse: 87 SpO2: 99% Physical Exam Physical Exam HENT: Right Ear: There is impacted cerumen. Left Ear: There is impacted cerumen. Results No results found for this or any previous visit (from the past 24 hour(s)). Screenings Assessment 1. Bilateral impacted cerumen Plan/ Orders No orders of the defined types were placed in this encounter. Discussion/ Summary B/L CERUMEN IMPACTION Discussed potential vestibular SX's a/w significant cerumen impaction. Cerumen impaction successfully cleared using Elephant Ear Wash and curette. Pt's sx's improved with removal of significant wax. Pt tolerated procedure without significant issue. Reminded pt to avoid using q-tips. Discussed how she can apply mineral oil on cotton ball to edge of ear canal for 20 mins once a weekto help prevent build up in the future. Also discussed ear candles. SHINGRIX Pt received Shingrix 0.5cc IM to right deltoid region using aseptic technique. Patient tolerated injection well. Reviewed with pt possible side effects and signs of allergic reaction and need for emergent care. Pt aware to return in 2-6mos for 2nd shot to complete series. Discussed adverse effects. Explained that as per drug rep for SHINGRIX, up to 48hrs of nausea, chills or a flu like feeling iscommon after the vaccination. Some people feel unwell for longer. Explained that she may feel the same way or worse with the second vaccination and should plan for it. ADJUVANT Lot#: [id number] Exp: 11/06/2023 NOT CONTRAINDICATED in transplant patients, but let transplant know Consuelo Hobbs PA-C Electronically signed by Consuelo Hobbs PA-C 06/07/2022 documented in this encounter Plan of Treatment Upcoming Encounters Date Type Department Care Team (Late st Contact Info) Description 11/13/2023 7:45 AM EDT Office Visit [facility] Medical Oncology at [address] [phone] Ricci Carter MD [address] [place], [place] [phone] 11/13/2023 8:30 AM EDT Infusion [facility] at [facility]fusion [facility] [address] [phone] Ricci Carter MD [address] [place], [place] [phone] Keiko Hallman MD 80 [facility] [place] [address] 11/20/2023 11:00 AM EDT Appointment [facility] Radiology [facility] [address] [place] [phone] Ricci Carter MD [address] [place], [place] [phone] 11/20/2023 11:30 AM EDT Appointment [facility] Radiology [facility] [address] [place] [phone] Ricci Carter MD [address] [place] [address] 03/05/2024 11:00 AM EST Consult [facility] Cardiology [place] [address] [facility] [address] [place] [phone] Ricci Carter MD [address] [place] [address] Jamil Ralph MD [address] [place] [address] 05/30/2024 9:00 AM EST Office Visit [facility] Department of Internal Medicine [facility] 1210 [facility] 109 [place], [place] [phone] Consuelo Hobbs PA-C 1210 [facility] 109 [place] [address] documented as of this encounter Visit Diagnoses Diagnosis Bilateral impacted cerumen- Primary Impacted cerumen Need for shingles vaccine Need for prophylactic vaccination and inoculation against varicella documented in this encounter Care Teams Stringer Up Soldering Machine Relationship Specialty Start Date End Date Consuelo Hobbs PA-C [address] [place] [address] 109 [place] [address] PCP - General 05/01/19 Madi Sharp MD [address] [address] Gastroenterology 10/02/19 documented as of this encounter
--- OUTSIDE RECORDS SUMMARY | 2023-10-29 17:46 | XMS_ITS | Encounter Summary ---
Author Organization [facility] Address [address] [place] [address] Care Team Providers Care Blueprint Machine Operator Name Role Phone Consuelo Hobbs PA-C Primary Care Provider Madi Sharp MD Unavailable [phone] Encounter Details Date Type Department Care Team (Latest Contact Info) Description 08/16/2022 Travel Social History Tobacco Use Types Packs/Day [...] Description 11/13/2023 7:45 AM EDT Office Visit [facility] [place] Medical Oncology at [address] [phone] Ricci Carter MD 85 [place] [address] 11/13/2023 8:30 AM EDT Infusion [facility] [place] at [facility] Out[facility]fusion [facility] [place] [address] [place] [address] Ricci Carter MD [address] [place] [address] Keiko Hallman MD 80 [facility] [place] [address] 11/20/2023 11:00 AM EDT Appointment [facility] Radiology [facility] 35 [place] [phone] Ricci Carter MD [address] [place] [address] 11/20/2023 11:30 AM EDT Appointment [facility] Radiology [facility] 35 [place] [phone] Ricci Carter MD [address] [place] [address] 03/05/2024 11:00 AM EST Consult [facility] Cardiology [place] [address] [facility] [address] [place] [phone] Ricci Carter MD 85 [place] [address] Jamil Ralph MD [address] [place] [facility] [address] [place] [address] 05/30/2024 9:00 AM EST Office Visit [facility] Department of Internal Medicine [facility] [address] [phone] Consuelo Hobbs PA-C [address] [phone] documented as of this encounter Visit Diagnoses Not on filedocumented in this encounter Care Teams Blueprint Machine Operator Relationship Specialty Start Date End Date Consuelo Hobbs PA-C [address] [phone] PCP - General 05/01/19 Madi Sharp MD [address] [place] [address] Gastroenterology 10/02/19 documented as of this encounter
--- OUTSIDE RECORDS SUMMARY | 2023-10-29 17:46 | XMS_ITS | Encounter Summary ---
Author Organization [facility] Address [address] [place] [address] Care Team Providers Care Peoplesoft Consultant Name Role Phone Consuelo Hobbs PA-C Primary Care Provider Madi Sharp MD Unavailable [phone] Reason for Visit * Reason Comments Medication Refill Encounter Details Date Type Department Care Team (Late st Contact Info) Description 06/30/2022 Refill [facility] Department of Internal Medicine & Nephrology [place] 1260 [facility] [address] [place] [address] Consuelo Hobbs PA-C 1218 [facility] [address] [place] [address] Migraine with status migrainosus, not [...] Description 11/13/2023 7:45 AM EDT Office Visit [facility] Medical Oncology at [address] [phone] Ricci Carter MD [address] [place] [address] 11/13/2023 8:30 AM EDT Infusion [facility] Cancer [place] at [facility] Outpatient Infusion Center [address] [phone] Ricci Carter MD [address] [place] [address] Keiko Hallman MD 80 [facility] [place] [address] 11/20/2023 11:00 AM EDT Appointment [facility] Radiology [facility] [address] [place] [phone] Ricci Carter MD [address] [place] [address] 11/20/2023 11:30 AM EDT Appointment [facility] Radiology [facility] [address] [place] [phone] Ricci Carter MD [address] [place] [address] 03/05/2024 11:00 AM EST Consult [facility] Cardiology [address] [place] [address] Ricci Carter MD [address] [place] [address] Jamil Ralph MD [address] [place] [facility] [address] [place] [address] 05/30/2024 9:00 AM EST Office Visit [facility] Department of Internal Medicine [facility] 1210 [facility] [address] [place] [address] Consuelo Hobbs PA-C 1210 [facility] 109 [place] [address] documented as of this encounter Visit Diagnoses Diagnosis Migraine with status migrainosus, not intractable, unspecified migraine type documented in this encounter Care Teams Peoplesoft Consultant Relationship Specialty Start Date End Date Consuelo Hobbs PA-C [address] [place] [address] 109 [place] [address] PCP - General 05/01/19 Madi Sharp MD [address] [address] Gastroenterology 10/02/19 documented as of this encounter
--- OUTSIDE RECORDS SUMMARY | 2023-10-29 17:46 | XMS_ITS | Encounter Summary ---
Author Organization [facility] Address [address] [place] [address] Care Team Providers Care Ab Initio Etl Developer Name Role Phone Consuelo Hobbs PA-C Primary Care Provider Madi Sharp MD Unavailable [phone] Encounter Details Date Type Department Care Team (Late st Contact Info) Description 07/05/2022 Orders Only [facility] Cancer [place] Medical Oncology at [address] [phone] Lilli Peguero, YASEMIN [address] [place] [address] Social History Tobacco Use Types Packs/Day Years [...] Description 11/13/2023 7:45 AM EDT Office Visit [facility] Medical Oncology at [address] [phone] Ricci Carter MD [address] [place], [place] [phone] 11/13/2023 8:30 AM EDT Infusion [facility] Cancer [place] at [facility] Outpatient Infusion Center [address] [phone] Ricci Carter MD [address] [place] [place], [place] [phone] Keiko Hallman MD 80 [facility] [place] [address] 11/20/2023 11:00 AM EDT Appointment [facility] Radiology [facility] [address] [place] [phone] Ricci Carter MD [address] [place], [place] [phone] 11/20/2023 11:30 AM EDT Appointment [facility] Radiology [facility] [address] [place] [phone] Ricci Carter MD [address] [place], [place] [phone] 03/05/2024 11:00 AM EST Consult [facility] Cardiology [address] [place] [phone] Ricci Carter MD [address] [place] [address] Jamil Ralph MD [address] [place] [facility] [address] [place] [address] 05/30/2024 9:00 AM EST Office Visit [facility] Department of Internal Medicine [facility] 1210 [facility] 109 [place] [address] Consuelo Hobbs PA-C 1210 [facility] 109 [place] [address] documented as of this encounter Visit Diagnoses Not on filedocumented in this encounter Care Teams Ab Initio Etl Developer Relationship Specialty Start Date End Date Consuelo Hobbs PA-C [address] [place] [address] 109 [place] [address] PCP - General 05/01/19 Madi Sharp MD [address] [place] [phone] Gastroenterology 10/02/19 documented as of this encounter
--- OUTSIDE RECORDS SUMMARY | 2023-10-29 17:46 | XMS_ITS | Encounter Summary ---
Author Organization [facility] Address [address] [place] [address] Care Team Providers Care Unix Systems Administrator Name Role Phone Consuelo Hobbs PA-C Primary Care Provider Madi Sharp MD Unavailable [phone] Reason for Visit * Reason Comments Sanjeev Encounter Details Date Type Department Care Team (Late st Contact Info) Description 05/19/2022 Telephone [facility] [place] Medical Oncology at [address] [phone] Provider, Dodie, [address] [place] [address] Sanjeev Social History Tobacco Use Types Packs/Day Years [...] encounter Miscellaneous Notes * Telephone Encounter - Jayshree Hansen - 09/01/2023 4:33 PM EDT Sent staff message to Yesica TREJO. Closing encounter - will reopen once off-label clinical rationale is submitted. Ok to close encounter at this time. * Telephone Encounter - Jayshree Hansen - 08/22/2023 11:38 AM EDT Per Yesica TREJO requested we [place] back of 08/28. Delayed staff message scheduled for Monday 08/28 and will reopen encounter if needed at that time. This is all set. Ok to close encounter. * Telephone Encounter - Angie Giordano - 05/20/2022 11:01 AM EST OK to close - let RN know of approval. documented in this encounter Plan of Treatment Upcoming Encounters Date Type Department Care Team (Late st Contact Info) Description 11/13/2023 7:45 AM EDT Office Visit [facility] Medical Oncology at [address] [phone] Ricci Carter MD [address] [place] [address] 11/13/2023 8:30 AM EDT Infusion [facility] [place] at [facility] Outpatient Infusion Center [address] [phone] Ricci Carter MD [address] [place] [address] Keiko Hallman MD 80 [facility] [place] [address] 11/20/2023 11:00 AM EDT Appointment [facility] Radiology [facility] 35 [place] [phone] Ricci Carter MD [address] [place] [address] 11/20/2023 11:30 AM EDT Appointment [facility] Radiology [place] [facility] [address] [place] [address] [phone] Ricci Carter MD [address] [place], [place] [phone] 03/05/2024 11:00 AM EST Consult [facility] Cardiology [address] [place] [phone] Ricci Carter MD [address] [place] [address] Jamil Ralph MD 100 [place] [facility] [address] [place], [place] [phone] 05/30/2024 9:00 AM EST Office Visit [facility] Department of Internal Medicine [facility] 1210 [facility] [address] [place], [place] [phone] Consuelo Hobbs PA-C 1210 [facility] [address] [place], [place] [phone] documented as of this encounter Visit Diagnoses Not on filedocumented in this encounter Care Teams Unix Systems Administrator Relationship Specialty Start Date End Date Consuelo Hobbs PA-C 1210 [facility] 109 [place] [address] PCP - General 05/01/19 Madi Sharp MD [address] [place] [address] Gastroenterology 10/02/19 documented as of this encounter
--- OUTSIDE RECORDS SUMMARY | 2023-10-29 17:47 | XMS_ITS | Encounter Summary ---
Author Organization [facility] Address [address] [place] [address] Care Team Providers Care Coach Tour Driver Name Role Phone Consuelo Hobbs PA-C Primary Care Provider Madi Sharp MD Unavailable [phone] Reason for Visit * Reason Comments Medication Refill Encounter Details Date Type Department Care Team (Late st Contact Info) Description 02/10/2022 Refill [facility] Cancer [place] Medical Oncology at [address] [phone] Ricci Carter MD [address] [place] [address] Vitamin D deficiency Social History Tobacco Use [...] suspected to have Coronavirus/COVID-19? No / Unsure 02/07/2022 8:43 AM EST documented as of this encounter Plan of Treatment Upcoming Encounters Date Type Department Care Team (Late st Contact Info) Description 11/13/2023 7:45 AM EDT Office Visit [facility] Medical Oncology at [address] [phone] Ricci Carter MD [address] [place], [place] [phone] 11/13/2023 8:30 AM EDT Infusion [facility] [place] at [facility] Outpatient Infusion Center [address] [phone] Ricci Carter MD [address] [place], [place] [phone] Keiko Hallman MD 80 [facility] [place] [address] 11/20/2023 11:00 AM EDT Appointment [facility] Radiology [facility] [address] [place] [phone] Ricci Carter MD [address] [place], [place] [phone] 11/20/2023 11:30 AM EDT Appointment [facility] Radiology [facility] [address] [place] [phone] Ricci Carter MD [address] [place], [place] [phone] 03/05/2024 11:00 AM EST Consult [facility] Cardiology [address] [place] [phone] Ricci Carter MD [address] [place] [address] Jamil Ralph MD [address] [place] [facility] [address] [place] [address] 05/30/2024 9:00 AM EST Office Visit [facility] Department of Internal Medicine [facility] 1210 [facility] 109 [place] [address] Consuelo Hobbs PA-C [address] [address] documented as of this encounter Visit Diagnoses Diagnosis Vitamin D deficiency documented in this encounter Care Teams Coach Tour Driver Relationship Specialty Start Date End Date Consuelo Hobbs PA-C [address] [place] [address] PCP - General 05/01/19 Madi Sharp MD [address] [place] [address] Gastroenterology 10/02/19 documented as of this encounter
--- OUTSIDE RECORDS SUMMARY | 2023-10-29 17:47 | XMS_ITS | Encounter Summary ---
Author Organization [facility] Address [address] [place] [address] Care Team Providers Care Scalder Name Role Phone Consuelo Hobbs PA-C Primary Care Provider Madi Sharp MD Unavailable [phone] Encounter Details Date Type Department Care Team (Late st Contact Info) Description 02/28/2022 Orders Only [facility] [place] Medical Oncology at [address] [phone] Ricci Carter MD [address] [place] [address] Social History Tobacco Use Types Packs/Day Years [...] Description 11/13/2023 7:45 AM EDT Office Visit [facility] Medical Oncology at [address] [phone] Ricci Carter MD [address] [place], [place] [phone] 11/13/2023 8:30 AM EDT Infusion [facility] [place] at [facility] Outpatient Infusion Center [address] [phone] Ricci Carter MD [address] [place], [place] [phone] Keiko Hallman MD 80 [facility] [place] [address] 11/20/2023 11:00 AM EDT Appointment [facility] Radiology Sh[facility] Mamm[facility] [address] [place] [phone] Ricci Carter MD [address] [place], [place] [phone] 11/20/2023 11:30 AM EDT Appointment [facility] Radiology [facility] M[facility] [address] [place] [phone] Ricci Carter MD [address] [place], [place] [phone] 03/05/2024 11:00 AM EST Consult [facility] Cardiology [address] [place] [phone] Ricci Carter MD [address] [place] [address] Jamil Ralph MD [address] [facility] [address] [place] [address] 05/30/2024 9:00 AM EST Office Visit [facility] Department of Internal Medicine [facility] [address] [facility] [address] [place] [address] Consuelo Hobbs PA-C 1210 [facility] 109 [place] [address] documented as of this encounter Visit Diagnoses Not on filedocumented in this encounter Care Teams Scalder Relationship Specialty Start Date End Date Consuelo Hobbs PA-C [address] [place] [address] 109 [place] [address] PCP - General 05/01/19 Madi Sharp MD [address] [place] [address] Gastroenterology 10/02/19 documented as of this encounter
--- OUTSIDE RECORDS SUMMARY | 2023-10-29 17:47 | XMS_ITS | Encounter Summary ---
Author Organization [facility] Address [address] [place] [address] Care Team Providers Care Fire Assistant Name Role Phone Consuelo Hobbs PA-C Primary Care Provider Madi Sharp MD Unavailable [phone] Encounter Details Date Type Department Care Team (Latest Contact Info) Description 11/10/2021 Travel Social History Tobacco Use Types Packs/Day [...] was confirmed or suspected to have Coronavirus/COVID-19? Unable to assess 11/10/2021 1:18 PM EDT documented as of this encounter Plan of Treatment Upcoming Encounters Date Type Department Care Team (Late st Contact Info) Description 11/13/2023 7:45 AM EDT Office Visit [facility] [place] Medical Oncology at [address] [phone] Ricci Cartre MD [address] [place] [address] 11/13/2023 8:30 AM EDT Infusion [facility] [place] at [facility] Outpatient Infusion Center [place] [address] [place] [address] Ricci Carter MD [address] [place] [address] Keiko Hallman MD 80 [facility] [place] [address] 11/20/2023 11:00 AM EDT Appointment [facility] Radiology [facility] M[facility] [address] [place] [phone] Rcici Carter MD [address] [place] [address] 11/20/2023 11:30 AM EDT Appointment [facility] Radiology [facility] M[facility]ography [address] [place] [phone] Ricci Carter MD [address] [place] [address] 03/05/2024 11:00 AM EST Consult [facility] Cardiology [place] [address] [facility] [address] [place] [phone] Ricci Carter MD [address] [place] [address] Jamil Ralph MD [address] [facility] [address] [place] [address] 05/30/2024 9:00 AM EST Office Visit [facility] Physicians Department of Internal Medicine [facility] 1210 [facility] [address] [place] [phone] Consuelo Hobbs PA-C 1210 [facility] 109 [place], [place] [phone] documented as of this encounter Visit Diagnoses Not on filedocumented in this encounter Care Teams Fire Assistant Relationship Specialty Start Date End Date Consuelo Hobbs PA-C [address] [phone] PCP - General 05/01/19 Madi Sharp MD [address] [place] [address] Gastroenterology 10/02/19 documented as of this encounter
--- OUTSIDE RECORDS SUMMARY | 2023-10-29 17:47 | XMS_ITS | Encounter Summary ---
Author Organization [facility] Address [address] [place] [address] Care Team Providers Care Lastex Thread Winder Name Role Phone Consuelo Hobbs PA-C Primary Care Provider Madi Sharp MD Unavailable [phone] Reason for Visit * Reason Comments Medication Refill Encounter Details Date Type Department Care Team (Late st Contact Info) Description 12/15/2021 Refill [facility] [place] Medical Oncology at [address] [phone] Ricci Carter MD [address] [place] [address] Vitamin D deficiency Social History Tobacco Use [...] suspected to have Coronavirus/COVID-19? No / Unsure 12/14/2021 8:15 AM EDT documented as of this encounter Plan of Treatment Upcoming Encounters Date Type Department Care Team (Late st Contact Info) Description 11/13/2023 7:45 AM EDT Office Visit [facility] Medical Oncology at [address] [phone] Ricci Carter MD [address] [place], [place] [phone] 11/13/2023 8:30 AM EDT Infusion [facility] [place] at [facility] Outpatient Infusion Center [address] [phone] Ricci Carter MD [address] [place], [place] [phone] Keiko Hallman MD 80 [facility] [place] [address] 11/20/2023 11:00 AM EDT Appointment [facility] Radiology [facility] Mammography [address] [place] [phone] Ricci Carter MD [address] [place], [place] [phone] 11/20/2023 11:30 AM EDT Appointment [facility] Radiology [facility]ography [address] [place] [address] [phone] Ricci Carter MD [address] [place], [place] [phone] 03/05/2024 11:00 AM EST Consult [facility] Cardiology [address] [place] [phone] Ricci Carter MD [address] [place] [address] Jamil Ralph MD [address] [facility] [address] [place] [address] 05/30/2024 9:00 AM EST Office Visit [facility] Department of Internal Medicine [facility] 1210 [facility] 109 [place] [address] Consuelo Hobbs PA-C [address] [address] documented as of this encounter Visit Diagnoses Diagnosis Vitamin D deficiency documented in this encounter Care Teams Lastex Thread Winder Relationship Specialty Start Date End Date Consuelo Hobbs PA-C [address] [place] [address] PCP - General 05/01/19 Madi Sharp MD [address] [place] [address] Gastroenterology 10/02/19 documented as of this encounter
--- OUTSIDE RECORDS SUMMARY | 2023-10-29 17:47 | XMS_ITS | Encounter Summary ---
Author Organization [facility] Address [address] [place] [address] Care Team Providers Care Balancer Scale Name Role Phone Consuelo Hobbs PA-C Primary Care Provider Madi Sharp MD Unavailable [phone] Reason for Visit * Reason Comments Injections * Episode Based Medications (Routine) - Authorized Specialty Diagnoses / Procedures Referred By Contbalbir t Referred To Contact Diagnoses Carcinoid tumor of ileum, unspecified whether malignant (HCC) Keiko Hallman MD 80 [facility] [place] [address] Med Onc [address] [address] Referral ID Status Reason Start Date Expiration Date V isits Requested Visits Authorized [id number] Authorized 04/29/2022 11/27/2023 5 2 Encounter Details Date Type Department Care Team (Late st Contact Info) Description 01/14/2022 9:00 AM EDT Infusion [facility] [place] at [facility] Outpatient Infusion Center [address] [phone] Ricci Carter MD [address] [place] [address] Keiko Hallman MD 80 [facility] [place] [address] Brittany Goins RN 80 [place] [address] Carcinoid tumor of ileum, unspecified whether malignant [...] suspected to have Coronavirus/COVID-19? No / Unsure 01/14/2022 8:25 AM EDT documented as of this encounter Last Filed Vital Signs Vital Sign Reading Time Taken Comments Blood Pressure 142/78 01/14/2022 8:32 AM EDT Pulse 83 01/14/2022 8:32 AM EDT Temperature 35.9 ??C (96.7 ??F) 01/14/2022 8:32 AM ED T Respiratory Rate 16 01/14/2022 8:32 AM EDT Oxygen Saturation 99% 01/14/2022 8:32 AM EDT Inhaled Oxygen Concentration - - Weight 70.6 kg (155 lb 9.6 oz) 01/14/2022 8:32 A M EDT Height 160 cm (5' 2.99) 01/14/2022 8:32 AM EDT Body Mass Index 27.57 01/14/2022 8:32 AM EDT documented in this encounter Plan of Treatment Upcoming Encounters Date Type Department Care Team (Late st Contact Info) Description 11/13/2023 7:45 AM EDT Office Visit [facility] [place] Medical Oncology at [address] [place] [phone] Ricci Carter MD [address] [place] [address] 11/13/2023 8:30 AM EDT Infusion [facility] [place] at [facility] Outpatient Infusion Center [address] [phone] Ricci Carter MD [address] [place] [phone] Keiko Hallman MD 80 [facility] [place] [address] 11/20/2023 11:00 AM EDT Appointment [facility] Radiology Shay Mammography [address] [place] [address] [phone] Ricci Carter MD [address] [place] [address] [place], [place] [phone] 11/20/2023 11:30 AM EDT Appointment [facility] Radiology [facility] Mammography [address] [place] [phone] Ricci Carter MD [address] [place] [phone] 03/05/2024 11:00 AM EST Consult [facility] Cardiology [address] [place] [phone] Ricci Carter MD [address] [place], [place] [phone] Jamil Ralph MD [address] [place] [address] [facility] [address] [place] [address] 05/30/2024 9:00 AM EST Office Visit [facility] Physicians Department of Internal Medicine [facility] [address] [phone] Consuelo Hobbs PA-C [address] [phone] documented as of this encounter Visit Diagnoses Diagnosis Carcinoid tumor of ileum, unspecified whether malignant (HCC)- Primary documented in this encounter Administered Medications Inactive Administered Medications - up to 1 most recent administrations Medication Order MAR Action Action Date Dose Rate Site octreotide (SandoSTATIN LAR) IM injection 40 mg 40 mg, Intramuscular, Once, On Mon01/14/22 at 0930, For 1 dose, Administer IM intragluteal (avoid deltoid administration). For intraMUSCULAR use ONLY. Must be administered immediately after mixing. Given 01/14/2022 8:40 AM EDT 40 mg Left Gluteal Upper Outer Quadrant documented in this encounter Care Teams Balancer Scale Relationship Specialty Start Date End Date Consuelo Hobbs PA-C [address] [place] [phone] PCP - General 05/01/19 Madi Sharp MD [address] [place] [address] Gastroenterology 10/02/19 documented as of this encounter
--- OUTSIDE RECORDS SUMMARY | 2023-10-29 17:47 | XMS_ITS | Encounter Summary ---
Author Organization [facility] Address [address] [place] [address] Care Team Providers Care Weekday Babysitter Name Role Phone Consuelo Hobbs PA-C Primary Care Provider Madi Sharp MD Unavailable [phone] Encounter Details Date Type Department Care Team (Latest Contact Info) Description 11/02/2021 Travel Social History Tobacco Use Types Packs/Day [...] suspected to have Coronavirus/COVID-19? No / Unsure 11/02/2021 8:55 AM EDT documented as of this encounter Plan of Treatment Upcoming Encounters Date Type Department Care Team (Late st Contact Info) Description 11/13/2023 7:45 AM EDT Office Visit [facility] [place] Medical Oncology at [address] [phone] Ricci Carter MD [address] [place] [address] 11/13/2023 8:30 AM EDT Infusion [facility] [place] at [facility] Outpatient Infusion Center [place] [address] [place] [address] Ricci Carter MD [address] [place] [address] Keiko Hallman MD 80 [facility] [place] [address] 11/20/2023 11:00 AM EDT Appointment [facility] Radiology Shay Mammography 35 [place] [phone] Ricci Carter MD [address] [place] [address] 11/20/2023 11:30 AM EDT Appointment [facility] Radiology Shay Mammography 35 [place] [phone] Ricci Carter MD [address] [place] [address] 03/05/2024 11:00 AM EST Consult [facility] Cardiology [place] 376 [facility] [address] [place] [phone] Ricci Carter MD [address] [place] [address] Jamil Ralph MD [address] [place] [facility] [address] [place] [address] 05/30/2024 9:00 AM EST Office Visit [facility] Physicians Department of Internal Medicine [facility] [address] [phone] Consuelo Hobbs PA-C [address] [phone] documented as of this encounter Visit Diagnoses Not on filedocumented in this encounter Care Teams Weekday Babysitter Relationship Specialty Start Date End Date Consuelo Hobbs PA-C [address] [phone] PCP - General 05/01/19 Madi Sharp MD [address] [place] [address] Gastroenterology 10/02/19 documented as of this encounter
--- OUTSIDE RECORDS SUMMARY | 2023-10-29 17:47 | XMS_ITS | Encounter Summary ---
Author Organization [facility] Address [address] [place] [address] Care Team Providers Care Sand Mill Operator Facing Sand Name Role Phone Consuelo Hobbs PA-C Primary Care Provider Madi Sharp MD Unavailable [phone] Reason for Visit * Episode Based Medications (Routine) - Authorized Specialty Diagnoses / Procedures Referred By Contac t Referred To Contact Diagnoses Carcinoid tumor of ileum, unspecified whether malignant (HCC) Keiko Hallman MD 80 [facility] [place] [address] Med Onc Ci [address] [phone] Referral ID Status Reason Start Date Expiration Date V isits Requested Visits Authorized [id number] Authorized 04/29/2022 11/27/2023 5 2 Encounter Details Date Type Department Care Team (Late st Contact Info) Description 02/07/2022 9:00 AM EST Infusion [facility] [place] at [facility] Outpatient Infusion Center [address] [phone] Ricci Carter MD [address] [place] [address] Kekio Hallman MD 80 [facility] [place] [address] Sienna Alaniz RN 80 [place] [address] Carcinoid tumor of ileum, unspecified whether malignant [...] Sign Reading Time Taken Comments Blood Pressure 141/82 02/07/2022 8:56 AM EST Pulse 84 02/07/2022 8:56 AM EST Temperature 35.7 ??C (96.2 ??F) 02/07/2022 8:56 AM ES T Respiratory Rate 16 02/07/2022 8:56 AM EST Oxygen Saturation 99% 02/07/2022 8:56 AM EST Inhaled Oxygen Concentration - - Weight 69.4 kg (153 lb 1.6 oz) 02/07/2022 8:56 A M EST Height 160 cm (5' 2.99) 02/07/2022 8:56 AM EST Body Mass Index 27.13 02/07/2022 8:56 AM EST documented in this encounter Plan of Treatment Upcoming Encounters Date Type Department Care Team (Late st Contact Info) Description 11/13/2023 7:45 AM EDT Office Visit [facility] Cancer [place] Medical Oncology at [address] [phone] Ricci Carter MD [address] [place] [phone] 11/13/2023 8:30 AM EDT Infusion [facility] [place] at [facility] Outpatient Infusion Center [address] [phone] Ricci Carter MD [address] [place], [place] [phone] Keiko Hallman MD 80 [facility] [place] [address] 11/20/2023 11:00 AM EDT Appointment [facility] Radiology Shay Mammography [address] [place] [address] [phone] Ricci Carter MD [address] [place], [place] [phone] 11/20/2023 11:30 AM EDT Appointment [facility] Radiology Shay Mammography [address] [place] [address] [phone] Ricci Carter MD [address] [place], [place] [phone] 03/05/2024 11:00 AM EST Consult [facility] Cardiology [address] [place] [phone] Ricci Carter MD [address] [place], [place] [phone] Jamil Ralph MD [address] [place] [address] [facility] [address] [place], [place] [phone] 05/30/2024 9:00 AM EST Office Visit [facility] Department of Internal Medicine [facility] 1210 [facility] 109 [place], [place] [phone] Consuelo Hobbs PA-C 1210 [facility] 109 [place], [place] [phone] documented as of this encounter Visit Diagnoses Diagnosis Carcinoid tumor of ileum, unspecified whether malignant (HCC)- Primary documented in this encounter Administered Medications Inactive Administered Medications - up to 1 most recent administrations Medication Order MAR Action Action Date Dose Rate Site octreotide (SandoSTATIN LAR) IM injection 40 mg 40 mg, Intramuscular, Once, On 02/07/22 at 0930, For 1 dose, Administer IM intragluteal (avoid deltoid administration). For intraMUSCULAR use ONLY. Must be administered immediately after mixing. Given 02/07/2022 8:57 AM EST 40 mg Left Gluteal Upper Outer Quadrant documented in this encounter Care Teams Sand Mill Operator Facing Sand Relationship Specialty Start Date End Date Consuelo Hobbs PA-C [address] [place] [phone] PCP - General 05/01/19 Madi Sharp MD [address] [place] [address] Gastroenterology 10/02/19 documented as of this encounter
--- OUTSIDE RECORDS SUMMARY | 2023-10-29 17:47 | XMS_ITS | Encounter Summary ---
Author Organization [facility] Address [address] [place] [address] Care Team Providers Care Technical Support Manager Name Role Phone Consuelo Hobbs PA-C Primary Care Provider Madi Sharp MD Unavailable [phone] Reason for Visit * Episode Based Medications (Routine) - Authorized Specialty Diagnoses / Procedures Referred By Contac t Referred To Contact Diagnoses Carcinoid tumor of ileum, unspecified whether malignant (HCC) Keiko Hallman MD 80 [facility] [place] [address] Med Onc Ci [address] [phone] Referral ID Status Reason Start Date Expiration Date V isits Requested Visits Authorized [id number] Authorized 04/29/2022 11/27/2023 5 2 Encounter Details Date Type Department Care Team (Late st Contact Info) Description 11/02/2021 9:00 AM EDT Infusion [facility] Cancer [place] at [facility] Outpatient Infusion Center [address] [phone] Ricci Carter MD [address] [place] [address] Keiko Hallman MD 80 [facility] [place] [address] Shawna Petty RN [address] [place] [phone] Canceled (Other) Social History Tobacco Use Types Packs/Day Years [...] Sign Reading Time Taken Comments Blood Pressure 142/66 11/02/2021 9:01 AM EDT Pulse 77 11/02/2021 9:01 AM EDT Temperature 36.6 ??C (97.9 ??F) 11/02/2021 9:01 AM ED T Respiratory Rate 16 11/02/2021 9:01 AM EDT Oxygen Saturation 99% 11/02/2021 9:01 AM EDT Inhaled Oxygen Concentration - - Weight 68.6 kg (151 lb 4.8 oz) 11/02/2021 9:01 A M EDT Height - - Body Mass Index 26.8 03/26/2021 12:49 PM EST documented in this encounter Plan of Treatment Upcoming Encounters Date Type Department Care Team (Late st Contact Info) Description 11/13/2023 7:45 AM EDT Office Visit [facility] Cancer [place] Medical Oncology at [address] [phone] Ricci Carter MD [address] [place] [address] 11/13/2023 8:30 AM EDT Infusion [facility] Cancer [place] at [facility] Outpatient Infusion Center [place] [address] [place] [address] Ricci Carter MD [address] [place] [address] Keiko Hallman MD 80 [facility] [place] [address] 11/20/2023 11:00 AM EDT Appointment [facility] Radiology Shay Mammography 35 [place] [phone] Ricci Carter MD [address] [place] [address] 11/20/2023 11:30 AM EDT Appointment [facility] Radiology Shay Mammography [address] [place] [phone] Ricci Carter MD [address] [place] [address] 03/05/2024 11:00 AM EST Consult [facility] Group Cardiology [place] 376 [facility] [address] [place] [phone] Ricci Carter MD [address] [place] [address] Jamil Ralph MD [address] [place] [facility] [address] [place] [address] 05/30/2024 9:00 AM EST Office Visit [facility] Physicians Department of Internal Medicine [facility] [address] [phone] Consuelo Hobbs PA-C [address] [phone] documented as of this encounter Visit Diagnoses Not on filedocumented in this encounter Care Teams Technical Support Manager Relationship Specialty Start Date End Date Consuelo Hobbs PA-C [address] [phone] PCP - General 05/01/19 Madi Sharp MD [address] [place] [address] Gastroenterology 10/02/19 documented as of this encounter
--- OUTSIDE RECORDS SUMMARY | 2023-10-29 17:47 | XMS_ITS | Encounter Summary ---
Author Organization [facility] Address [address] [place] [address] Care Team Providers Care Environmental Services Attendant Name Role Phone Consuelo Hobbs PA-C Primary Care Provider Madi Sharp MD Unavailable [phone] Encounter Details Date Type Department Care Team (Late st Contact Info) Description 12/15/2021 Orders Only [facility] Cancer [place] Medical Oncology at [address] [phone] Ricci Carter MD [address] [place] [address] Vitamin D deficiency (Primary Dx) Social History Tobacco Use Types [...] 11/13/2023 7:45 AM EDT Office Visit [facility] Medical Oncology at [address] [phone] Ricci aCrter MD [address] [place], [place] [phone] 11/13/2023 8:30 AM EDT Infusion [facility] [place] at [facility] Outpatient Infusion Center [address] [phone] Ricci Carter MD [address] [place], [place] [phone] Keiko Hallman MD 80 [facility] [place] [address] 11/20/2023 11:[address] [facility] Radiology Shay Mammography [address] [place] [phone] Ricci Carter MD [address] [place], [place] [phone] 11/20/2023 11:[address] [facility] Radiology Shay Mammography [address] [place] [address] [phone] Ricci Carter MD [address] [place], [place] [phone] 03/05/2024 11:00 AM EST Consult [facility] Cardiology [address] [place] [phone] Ricci Carter MD [address] [place] [address] Jamil Ralph MD [address] [place] [facility] [address] [place] [address] 05/30/2024 9:00 AM EST Office Visit [facility] Department of Internal Medicine [facility] 1210 [facility] [address] [place] [address] Consuelo Hobbs PA-C [address] [address] documented as of this encounter Visit Diagnoses Diagnosis Vitamin D deficiency- Primary documented in this encounter Care Teams Environmental Services Attendant Relationship Specialty Start Date End Date Consuelo Hobbs PA-C [address] [place] [phone] PCP - General 05/01/19 Madi Sharp MD [address] [place] [address] Gastroenterology 10/02/19 documented as of this encounter
--- OUTSIDE RECORDS SUMMARY | 2023-10-29 17:47 | XMS_ITS | Encounter Summary ---
Author Organization [facility] Address [address] [place] [address] Care Team Providers Care Marketing Communications Leader Name Role Phone Consuelo Hobbs PA-C Primary Care Provider Madi Sharp MD Unavailable [phone] Encounter Details Date Type Department Care Team ([facility] st Contact Info) Description 11/12/2021 Orders Only [facility] Cancer [place] Medical Oncology at [facility] [address] [place] [address] Ricci Carter MD [address] [place] [address] COVID-19 (Primary Dx) Social History Tobacco Use Types [...] [facility] Medical Oncology at [address] [phone] Ricci Carter MD [address] [place], [place] [phone] 11/13/2023 8:30 AM EDT Infusion [facility] Cancer [place] at [facility] Outpatient Infusion Center [address] [phone] Ricci Carter MD [address] [place], [place] [phone] Keiko Hallman MD 80 [facility] [place] [address] 11/20/2023 11:00 AM EDT Appointment [facility] Radiology [facility] [address] [place] [address] [phone] Ricci Carter MD [address] [place], [place] [phone] 11/20/2023 11:30 AM EDT Appointment [facility] Radiology [facility] [address] [place] [phone] Ricci Carter MD [address] [place], [place] [phone] 03/05/2024 11:00 AM EST Consult [facility] Cardiology [address] [place] [phone] Ricci Carter MD [address] [place] [phone] Jamil Ralph MD [address] [facility] [address] [place] [address] 05/30/2024 9:00 AM EST Office Visit [facility] Physicians Department of Internal Medicine [facility] 1210 [facility] [address] [place] [address] Consuelo Hobbs PA-C [address] [facility] 109 [place] [address] documented as of this encounter Visit Diagnoses Diagnosis COVID-19- Primary documented in this encounter Care Teams Marketing Communications Leader Relationship Specialty Start Date End Date Consuelo Hobbs PA-C [address] [place] [address] PCP - General 05/01/19 Madi Sharp MD [address] [place] [address] Gastroenterology 10/02/19 documented as of this encounter
--- OUTSIDE RECORDS SUMMARY | 2023-10-29 17:47 | XMS_ITS | Encounter Summary ---
Author Organization [facility] Address [address] [place] [address] Care Team Providers Care Sleep Tech Name Role Phone Consuelo Hobbs PA-C Primary Care Provider Madi Sharp MD Unavailable [phone] Reason for Visit * Reason Comments Covid-19 Pre-screening Patient presented here today For testing positive for covid Last night. Patient said that she was advise by her Oncologist to get a PCR test done. Encounter Details Date Type Department Care Team (Late st Contact Info) Description 11/10/2021 1:00 PM EDT Office Visit [facility] [address] [phone] Khloe Harmon PA [address] [place] [address] Den Hansen MD [address] [place] [address] COVID-19 (Primary Dx); Encounter for screening laboratory testing for COVID-19 virus Social History Tobacco Use Types Packs/Day Years [...] Sign Reading Time Taken Comments Blood Pressure 118/78 11/10/2021 1:26 PM EDT Pulse 91 11/10/2021 1:26 PM EDT Temperature 37.1 ??C (98.7 ??F) 11/10/2021 1:26 PM ED T Respiratory Rate - - Oxygen Saturation 98% 11/10/2021 1:26 PM EDT Inhaled Oxygen Concentration - - Weight - - Height - - Body Mass Index - - documented in this encounter Progress Notes * CATHI Cao - 11/10/2021 1:34 PM EDT Assessment & Plan Rody was seen today for covid-19 pre-screening. Diagnoses and all orders for this visit: COVID-19 Encounter for screening laboratory testing for COVID-19 virus - SARS COV 2 RNA(COVID 19), Qualitative NAAT (Covid PCR to [facility]) Communication barriers and lifestyle preferences were addressed with the Patient and/or family . The care plan including medications and self-management goals were reviewed to the best of the Patientand/or family's ability. All questions and concerns were answered. Patient and/or family verbalizedunderstanding of the plan of care. Subjective Rody Sotelo is a 51 y.o. female HPI Chief Complaint: Fever, chills, cough, body aches nausea, vomiting, diarrhea Duration: x 1 Days Context: + covid contacts Severity: Moderate Other Pertinent History: Denies shortness of breath, wheezing, pleuritic chest pain. Past Medical History: Diagnosis Date ??? Abdominal [...] ENDOSCOPY UPPER; Surgeon: Madi Sharp MD; Location: [facility]; Service: Gastroenterology; Laterality: N/A; ??? HEMICOLECTOMY Right ??? TONSILECTOMY, ADENOIDECTOMY, BILATERAL MYRINGOTOMY AND TUBES Social History Tobacco Use ??? Smoking status: Former Smoker Packs/day: 0.25 Years: 22.00 Pack years: 5.50 Types: Cigarettes Quit date: 05/17/2021 Years since quittin.4 ??? Smokeless tobacco: Never Used Vaping Use ??? Vaping Use: Never used [...] illness Maternal Aunt ??? Tuberculosis Maternal Grandfather Review of Systems: All other systems reviewed and are negative except where documented below: Objective Vitals: 11/10/21 1326 BP: 118/78 Pulse: 91 Temp: 98.7 ??F (37.1 ??C) SpO2: 98% Vital signs reviewed. Constitutional: Alert, No apparent respiratory distress. Does not appear toxic Eyes: Conjunctivae Clear, No Icterus Ear, Nose, Mouth, Throat: Grossly normal inspection. Normal voice, handling secretions normally. OPwith injection; Neg FLATWORK FINISHER, TMs nl bilaterally. Neg Sinus Tenderness, Nares congested bilaterally Neck: Supple, +Tender anterior cervical nodes bilateral, negative Laryngeal tenderness; Normal thyroid, Negative brawny edema Respiratory: Clear lung sounds Cardiovascular: Normal S1 S2 No Murmur GI: Soft nontender nondistended positive bowel sounds x4 negative rebound negative guarding Skin: No apparent rash No splinter hemorrhages Musculoskeletal: No extremity tenderness or significant edema Neurologic: Normal gait Medical Decision Making: The patient is not ill-appearing. There is no evidence of stridor, hypoxia, abnormal pulmonary exam, or abnormal chest imaging (if performed). I considered mastoiditis, pneumonia, GABHS, sinusitis, FLATWORK FINISHER, retropharyngeal abscess, meningitis, otitis media, orbital cellulitis and other bacterial infxs but the hx, exam & data did not support the diagnoses. The pt/family was advised that some dzs present atypically & the pt was given explicit DC instructions. Results for orders placed or performed in visit on 08/03/21 CBC with Differential Result Value Ref Range White Blood Cell Count 6.2 4.0 - 11.0 Thou/uL Red Blood Cell Count 4.32 4.00 - 5.40 Mil/uL Hemoglobin 12.3 11.7 - 15.7 g/dL Hematocrit 38.1 35.0 - 47.0 % MCV 88 80 - 100 fL MCH 28.5 27.0 - 31.0 pg MCHC 32.3 30.0 - 36.0 g/dL RDW 14.0 11.5 - 14.5 % Platelet Count 229 150 - 450 Thou/uL MPV 10.3 9.4 - 12.5 fL Neutrophils Auto 46.3 % Abs Neutrophils Auto 2.90 2.00 - 7.50 Thou/uL Lymphocytes Auto 44.2 % Abs Lymphocytes Auto 2.70 1.50 - 4.50 Thou/uL Mixed Mononuclear Auto 9.5 % Abs Mixed Mononuclear Auto <1.00 0.20 - 1.90 Thou/uL CATHI Cao 11/10/21 1:34 PM documented in this encounter Plan of Treatment Upcoming Encounters Date Type Department Care Team (Late st Contact Info) Description 11/13/2023 7:45 AM EDT Office Visit [facility] Cancer [place] Medical Oncology at [address] [phone] Ricci Carter MD [address] [place] [address] 11/13/2023 8:30 AM EDT Infusion [facility] Cancer [place] at [facility] Outpatient Infusion Center [address] [phone] Ricci Carter MD [address] [place], [place] [phone] Keiko Hallman MD 80 [facility] [place] [address] 11/20/2023 11:00 AM EDT Appointment [facility] Radiology [facility] [address] [place] [phone] Ricci Carter MD [address] [place], [place] [phone] 11/20/2023 11:30 AM EDT Appointment [facility] Radiology [facility] [address] [place] [phone] Ricci Carter MD [address] [place], [place] [phone] 03/05/2024 11:00 AM EST Consult [facility] Medical [facility] Cardiology [address] [place] [phone] Ricci Carter MD [address] [place], [place] [phone] Jamil Ralph MD [address] [facility] [address] [place], [place] [phone] 05/30/2024 9:00 AM EST Office Visit [facility] Department of Internal Medicine [address] [place], [place] [phone] Consuelo Hobbs PA-C 1210 [facility] [address] [place] [address] documented as of this encounter Procedures Procedure Name Priority Date/Time Associated Diagnosis Comments SARS COV 2 RNA(COVID 19), QUALITATIVE NAAT Routine 11/10/2021 1:29 PM EDT Encounter for screening laboratory testing for COVID-19 virus documented in this encounter Results * (ABNORMAL) SARS COV 2 RNA(COVID 19), Qualitative NAAT (Covid PCR to [facility]) (11/10/2021 1:29 PM EDT) SARS CoV 2 RNA DETECTED( A) NOT DETECTED [employer] Comment: A Detected result indicates that the patients' specimen was positive for SARS-CoV-2 RNA. ?? Test Method: Nucleic Acid Amplification Test including reverse die cut operator polymerase chain reaction (RT-PCR) and die cut operator mediated amplification (TMA). The test method meets the [place] Centers for Disease Control and prevention (CDC) pre departure and arrival requirement for viral test for COVID-19 dated April 30, 2020. Testing requirements for traveling may change with time. The patient is responsible for determining the test requirements for each nation while they are traveling. This test has been authorized by the FDA under an Emergency Use Authorization (EUA) for use by authorized laboratories. ?? Please review the Fact Sheets and FDA authorized labeling available for health care providers and patients using the following websites: https://www.[employer].com/home/Covid-19/HCP/ [facility]/fact-sheet.html https://www.[employer]Brie/home/Covid-19/Patients/ [facility]/fact-sheet.html This test has been authorized by the FDA under an Emergency Use Authorization (EUA) for use by authorized laboratories. ?? Due to the current public health emergency, [facility] is accepting samples from appropriate clinical sources collected using wide variety of swabs and transport media for COVID-19. Not detected test results derived from specimens received in non- commercially manufactured viral collection kits or those not yet authorized by FDA for COVID-19 testing should be cautiously evaluated and take extra precautions such as additional clinical monitoring, including collection of an additional specimen. ? Additional information about COVID-19 can be found at the [facility] website: www.[employer].FreeBrie/Covid19. For patients with a Detected or Inconclusive test result, please see CDC's COVID-19 Treatments and Medications page located at https://www.cdc.gov/coronavirus/2019-ncov/your-health/treatments-for- severe-illness.html for information on COVID-19 therapeutics. For patients with a Not Detected test result, please see CDC's Vaccines for COVID-19 page located at https://www.cdc.gov/coronavirus/2019-ncov/vaccines/index.html for information on COVID-19 vaccines. Microbiology 11/10/2021 1:29 PM EDT 11/11/2021 3:15 PM EDT Den Hansen MD MICROBIOLOGY - GENER AL ORDERABLES [employer] [address], [place] [address] documented in this encounter Visit Diagnoses Diagnosis COVID-19- Primary Encounter for screening laboratory testing for COVID-19 virus documented in this encounter Care Teams Sleep Tech Relationship Specialty Start Date End Date Consuelo Hobbs PA-C [address] [place] [address] [address] [place] [address] PCP - General 05/01/19 Madi Sharp MD [address] [place] [address] [address] [place] [address] Gastroenterology 10/02/19 documented as of this encounter
--- OUTSIDE RECORDS SUMMARY | 2023-10-29 17:47 | XMS_ITS | Encounter Summary ---
Author Organization [facility] Address [address] [place] [address] Care Team Providers Care Client Liaison Name Role Phone Consuelo Hobbs PA-C Primary Care Provider Madi Sharp MD Unavailable [phone] Encounter Details Date Type Department Care Team (Latest Contact Info) Description 12/03/2021 Travel Social History Tobacco Use Types Packs/Day [...] suspected to have Coronavirus/COVID-19? No / Unsure 12/03/2021 8:34 AM EDT documented as of this encounter Plan of Treatment Upcoming Encounters Date Type Department Care Team (Late st Contact Info) Description 11/13/2023 7:45 AM EDT Office Visit [facility] Cancer [place] Medical Oncology at [address] [phone] Ricci Carter MD [address] [place] [address] 11/13/2023 8:30 AM EDT Infusion [facility] Cancer [place] at [facility] Outpatient Infusion Center [place] [address] [place] [address] Ricci Carter MD [address] [place] [address] Keiko Hallman MD 80 [facility] [place] [address] 11/20/2023 11:[address] [facility] Radiology [facility] [address] [place] [phone] Ricci Carter MD [address] [place] [address] 11/20/2023 11:[address] [facility] Radiology [facility] [address] [place] [phone] Ricci Carter MD [address] [place] [address] 03/05/2024 11:00 AM EST Consult [facility] Cardiology [place] [address] [facility] [address] [place] [phone] Ricci Carter MD [address] [place] [address] Jamil Ralph MD [address] [place] [facility] [address] [place] [address] 05/30/2024 9:00 AM EST Office Visit [facility] Physicians Department of Internal Medicine [facility] [address] [phone] Consuelo Hobbs PA-C [address] [phone] documented as of this encounter Visit Diagnoses Not on filedocumented in this encounter Care Teams Client Liaison Relationship Specialty Start Date End Date Consuelo Hobbs PA-C [address] [phone] PCP - General 05/01/19 Madi Sharp MD [address] [place] [address] Gastroenterology 10/02/19 documented as of this encounter
--- OUTSIDE RECORDS SUMMARY | 2023-10-29 17:47 | XMS_ITS | Encounter Summary ---
Author Organization [facility] Address [address] [place] [address] Care Team Providers Care Casino Controller Name Role Phone Consuelo Hobbs PA-C Primary Care Provider Madi Sharp MD Unavailable [phone] Reason for Visit * Reason Comments Injections * Episode Based Medications (Routine) - Authorized Specialty Diagnoses / Procedures Referred By Contbalbir t Referred To Contact Diagnoses Carcinoid tumor of ileum, unspecified whether malignant (HCC) Keiko Hallman MD 80 [facility] [place] [address] [phone] Referral ID Status Reason Start Date Expiration Date V isits Requested Visits Authorized [id number] Authorized 04/29/2022 11/27/2023 5 2 Encounter Details Date Type Department Care Team (Late st Contact Info) Description 03/18/2022 9:00 AM EST Infusion [facility] Cancer [place] at Outpatient Infusion Center [address] [phone] Ricci Carter MD [address] [place] [address] Keiko Hallman MD [address] [facility] [place] [address] Melvi Lin RN [address] [place] [phone] Carcinoid tumor of ileum, unspecified whether malignant [...] Sign Reading Time Taken Comments Blood Pressure 122/79 03/18/2022 9:03 AM EST Pulse 76 03/18/2022 9:03 AM EST Temperature 35.8 ??C (96.5 ??F) 03/18/2022 9:03 AM ES T Respiratory Rate 20 03/18/2022 9:03 AM EST Oxygen Saturation 98% 03/18/2022 9:03 AM EST Inhaled Oxygen Concentration - - Weight 71.1 kg (156 lb 12.8 oz) 03/18/2022 9:03 AM EST Height 160 cm (5' 2.99) 03/18/2022 9:03 AM EST Body Mass Index 27.78 03/18/2022 9:03 AM EST documented in this encounter Plan of Treatment Upcoming Encounters Date Type Department Care Team (Late st Contact Info) Description 11/13/2023 7:45 AM EDT Office Visit [facility] [place] Medical Oncology at [address] [phone] Ricci Carter MD [address] [place] [address] 11/13/2023 8:30 AM EDT Infusion [facility] Cancer [place] at Outpatient Infusion Center [address] [phone] Ricci Carter MD [address] [place], [place] [phone] Keiko Hallman MD 80 [facility] [place] [address] 11/20/2023 11:00 AM EDT Appointment [facility] Radiology [facility] M[facility] [address] [place] [phone] Ricci Carter MD [address] [place], [place] [phone] 11/20/2023 11:30 AM EDT Appointment [facility] Radiology [facility] [address] [place] [phone] Ricci Carter MD [address] [place], [place] [phone] 03/05/2024 11:00 AM EST Consult [facility] Cardiology Mobile 376 [facility] [address] [place] [phone] Ricci Carter MD [address] [place], [place] [phone] Jamil Ralph MD [address] [place] [facility] [address] [place], [place] [phone] 05/30/2024 9:00 AM EST Office Visit [facility] Physicians Department of Internal Medicine [facility] 1210 [facility] 109 [place], [place] [phone] Consuelo Hobbs PA-C 1210 [facility] 109 [place], [place] [phone] documented as of this encounter Visit Diagnoses Diagnosis Carcinoid tumor of ileum, unspecified whether malignant (HCC)- Primary documented in this encounter Administered Medications Inactive Administered Medications - up to 1 most recent administrations Medication Order MAR Action Action Date Dose Rate Site octreotide (SandoSTATIN LAR) IM injection 40 mg 40 mg, Intramuscular, Once, On Mon03/18/22 at 1000, For 1 dose, Administer IM intragluteal (avoid deltoid administration). For intraMUSCULAR use ONLY. Must be administered immediately after mixing. Given 03/18/2022 9:22 AM EST 40 mg Left Gluteal Upper Outer Quadrant documented in this encounter Care Teams Casino Controller Relationship Specialty Start Date End Date Consuelo Hobbs PA-C [address] [place] [phone] PCP - General 05/01/19 Madi Sharp MD [address] [place] [address] Gastroenterology 10/02/19 documented as of this encounter
--- OUTSIDE RECORDS SUMMARY | 2023-10-29 17:47 | XMS_ITS | Encounter Summary ---
Author Organization [facility] Address [address] [place] [address] Care Team Providers Care Thermodynamics Teacher Name Role Phone Zohaib Aldana PA-C Primary Care Provider Madi Sharp MD Unavailable [phone] Reason for Referral * Diagnostic Imaging (Routine) - Closed Specialty Diagnoses / Procedures Referred By 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) Procedures MRI Abdomen w w/o contrast Ricci Carter MD [address] [place] [address] [place] Referral ID Status Reason Start Date Expiration Date Visits Re quested Visits Authorized [id number] Closed 03/15/2022 03/16/2023 1 1 Encounter Details Date Type Department Care Team (Late st Contact Info) Description 03/15/2022 7:45 AM EST Office Visit [facility] at [facility] [address] [place] [phone] Ricci Carter MD [address] [place] [address] Carcinoid tumor of ileum, unspecified whether malignant (Primary Dx); Encounter for monitoring octreotide therapy; Diarrhea, unspecified type; Carcinoid tumor of ileum; Oncology follow-up encounter Social History Tobacco Use Types Packs/Day [...] suspected to have Coronavirus/COVID-19? Unable to assess 03/15/2022 7:47 AM EST documented as of this encounter Last Filed Vital Signs Vital Sign Reading Time Taken Comments Blood Pressure 140/77 03/15/2022 7:44 AM EST Pulse 88 03/15/2022 7:44 AM EST Temperature 36.9 ??C (98.4 ??F) 03/15/2022 7:44 AM ES T Respiratory Rate 20 03/15/2022 7:44 AM EST Oxygen Saturation 99% 03/15/2022 7:44 AM EST Inhaled Oxygen Concentration - - Weight 72.1 kg (159 lb) 03/15/2022 7:44 AM EST Height - - Body Mass Index 28.17 02/07/2022 8:56 AM EST documented in this encounter Progress Notes * Ricci Carter MD - 03/15/2022 7:45 AM EST Images from the original note were not included. Medical Oncology/Hematology Progress Note Healthcare Team: Zohaib Aldana PA-C Subjective: Date of visit is: 03/15/2022 Rody Sotelo is a 51 y.o. female who presents here today for a follow- up visit regarding carcinoid. ONCOLOGY HISTORY: - December 16, 2019, colonoscopy was normal. Interim History: She feels that she into menopause. She reports no worsening of diarrhea. She was taking weekly vitamin D, though stopped taking a couple of weeks ago, after she ran out. Diarrhea- unchanged. 4-5 stools/day (1-2 stools are liquid/soft). - taking colestipol twice daily and stools firmer - granisetron 2 mg at bedtime - taking ~12-24 mg loperamide per day She denies Sandostatin LAR side effects. Not required short acting octreotide. She reports no abdominal pain or cramping. She denies flushing, but she reports hot flashes. Her LMP was December 2021. She reports no pain Pain: 0 REVIEW OF SYSTEMS: Review of Systems Constitutional: Positive for fatigue (stable). Negative for appetite change, chills, diaphoresis, fever and unexpected weight change (gained 6- lbs). HENT: Negative for nosebleeds. Respiratory: Negative for cough, shortness of breath and wheezing. Cardiovascular: Negative for chest pain, leg swelling and palpitations. Gastrointestinal: Negative for blood in stool, nausea and vomiting. Endocrine: Positive for hot flashes. Musculoskeletal: Negative for back pain. Skin: Negative for itching and rash. Neurological: Positive for headaches (migraines, unchanged). Negative for dizziness and light-headedness. Hematological: Does not bruise/bleed easily. Psychiatric/Behavioral: Positive for sleep disturbance (unchanged). The remainder of the 12- point ROS are within normal limits with the exceptions as noted in the HPI. Allergies Allergies Allergen Reactions ??? Levaquin [Levofloxacin] Myalgia/Myositis/Arthralgia/Arthritis ??? Cefaclor GI Intolerance/Nausea/Vomiting ??? Erythromycin GI Intolerance/Nausea/Vomiting Medications Current Outpatient Medications: ??? calcium carbonate (OS-ANGELICA) 600 MG tablet, Take 1 tablet (600 mg total) by mouth every morning with breakfast., Disp: , Rfl: ??? Cannabis (MARIJUANA) Mis Medical Prescription Strength, as needed., Disp: , Rfl: ??? ergotamine-caffeine (CAFERGOT) 1-100 MG per tablet, [...] for diarrhea., Disp: , Rfl: ??? Multiple Vitamin tablet, Take 1 tablet by mouth daily., Disp: , Rfl: ??? octreotide (SandoSTATIN LAR) 10 MG IM injection, Inject 40 mg into the shoulder, thigh, or buttocks every 21 days., Disp: , Rfl: ??? octreotide (SandoSTATIN) 100 MCG/ML injection, Inject 1 mL (100 mcg total) under the skin 3 times daily (every 8 hours) as needed (diarrhea, flushing)., Disp: 90 mL, Rfl: 11 ??? OMEprazole (PriLOSEC) 20 MG capsule, Take 1 capsule (20 mg total) by mouth every morning beforebreakfast., Disp: , Rfl: ??? pancrelipase, Gub-Ufeq-Ckfg, (Creon) 35058-960952 units Cap DR Particles capsule, Take 1 capsule (36,000 units of lipase total) by mouth 3 (three) times a day with meals. Dose is in units of lipase., Disp: 90 capsule, Rfl: 5 ??? rizatriptan (MAXALT-[address] PRODUCTION) 10 MG disintegrating tablet, DISSOLVE ONE TABLET BY MOUTH EVERY DAY ASNEEDED, Disp: 9 tablet, Rfl: 0 ??? Vitamin D3 (CHOLECALICEROL) 50 MCG (2000 UT) tablet, Take 1 tablet (2,000 Units total) by mouthdaily., Disp: , Rfl: ??? colestipol (COLESTID) 1 g tablet, Take 1 tablet (1 g total) by mouth 2 (two) times a day. With a large glass of water., Disp: 360 tablet, Rfl: 1 Past Medical History Past Medical History: Diagnosis [...] ENDOSCOPY UPPER; Surgeon: Madi Sharp MD; Location: [facility]; Service: Gastroenterology; Laterality: N/A; ??? HEMICOLECTOMY [...] ??? Quit date: 05/17/2021 ??? Years since quittin.8 Smokeless Tobacco Never Social History Substance and Sexual Activity Alcohol Use Not Currently Social History Substance and Sexual Activity Drug Use Yes ??? Types: Marijuana Objective: Wt Readings from Last 2 Encounters: 03/15/22 72.1 kg (159 lb) 02/07/22 69.4 kg (153 lb 1.6 oz) Physical Exam Vitals: 03/15/22 0744 BP: (!) 140/77 BP Location: Right arm Pulse: 88 Resp: 20 Temp: 98.4 ??F (36.9 ??C) TempSrc: Tympanic SpO2: 99% Weight: 72.1 kg (159 lb) Performance status: ECOG (0) Fully active, [...] Results: Lab Results Component Value Date WBC 5.8 12/14/2021 HGB 11.0 (L) 12/14/2021 HCT 34.8 (L) 12/14/2021 MCV 88 12/14/2021 PLT 201 12/14/2021 Lab Results Component Value Date NEUTROABS 2.70 12/14/2021 Lab Results Component Value Date ALT 18 12/14/2021 AST 24 12/14/2021 ALKPHOS 68 12/14/2021 BILITOT 0.3 12/14/2021 Lab Results Component Value Date GLUC 85 12/14/2021 CALCIUM 9.1 12/14/2021 NA 139 12/14/2021 K 4.8 12/14/2021 CO2 32 12/14/2021 CL 103 12/14/2021 BUN 13 12/14/2021 CREAT 0.74 12/14/2021 Assessment/Plan: 1. Carcinoid, [id number] A. Diagnosed July 11, 2013 1. S/p small bowel resection and right hemicolectomy a. Path- well- differentiated neuroendocrine tumor B. Receiving Sandostatin LAR, initiated October 17, 2013 1. re- staging MR abdomen/pelvis (January 09, 2020)- SD 2. re- staging MR abdomen/pelvis (January 18, 2021)- SD 3. re- staging MR abdomen/pelvis (October 07, 2021)- SD In summary, Rody is a 51 y.o. female with a PMHx significant for: migraines, PCOS, IBS and PVCs whopresents here today for a follow- up visit regarding carcinoid. Rody is here today for oncologic follow-up regarding ongoing monitoring and management of her carcinoid. She presents without any new oncologic concerns or complaints. All GI symptoms remain chronic and stable. Her diarrhea is slightly improved after she increased Colestipol dose to 1 gram twice daily. She continues to receive Sandostatin LAR. Her last treatment was administered on February 28, 2022.She continues to tolerate Sandostatin LAR without any toxicities. I think Rody is doing well at this time. No changes to treatment. Continue Sandostatin LAR every 21 days. She will receive this on Monday. Follow-up 25-OH vitamin D level. May need to continue weekly vit D. She stopped a couple of weeks ago. Continue: colestipol 1 grams twice daily (she has room to dose increase), granisetron 2 mg once daily, Creon, loperamide and short acting octreotide prn. Manage diet. Labs today. I ordered re- staging MRI to be done early next year. She remains tobacco free. Flu shot and single dose of bivalent mRNA COVID-19 booster recommended. ORDERS 1. Carcinoid tumor of ileum, unspecified whether malignant - Complete Blood Count, with Differential - Comprehensive Metabolic Panel - VITAMIN D, 25-HYDROXY - MRI Abdomen w w/o contrast; Future - MRI Pelvis w w/o contrast; Future 2. Diarrhea, unspecified type - colestipol (COLESTID) 1 g tablet; Take 1 tablet (1 g total) by mouth 2 (two) times a day. With a large glass of water. Dispense: 360 tablet; Refill: 1 Orders Placed This Encounter Procedures ??? Complete Blood Count, with Differential Order Specific Question: Release to Patient Answer: Immediate Release ??? Comprehensive Metabolic Panel Order Specific Question: Release to Patient Answer: Immediate Release ??? VITAMIN D, 25-HYDROXY Order Specific Question: Release to Patient Answer: Immediate Release The patient will return in 12 weeks. There are no Patient Instructions on file for this visit. documented in this encounter Plan of Treatment Upcoming Encounters Date Type Department Care Team (Late st Contact Info) Description 11/13/2023 7:45 AM EDT Office Visit [facility] Medical Oncology at [address] [phone] Ricci Carter MD [address] [place] [address] 11/13/2023 8:30 AM EDT Infusion [facility] [address] [phone] Ricci Carter MD [address] [place] [address] Keiko Hallman MD [address] [facility] On[facility] [place] [address] 11/20/2023 11:00 AM EDT Appointment [facility] Radiology [facility] [address] [place] [phone] Ricci Carter MD [address] [place], [place] [phone] 11/20/2023 11:30 AM EDT Appointment [facility] Radiology [facility] [address] [place] [phone] Ricci Carter MD [address] [place], [place] [phone] 03/05/2024 11:00 AM EST Consult [facility] Cardiology [address] [place] [phone] Ricci Carter MD [address] [place], [place] [phone] Jamil Ralph MD [address] [facility] [address] [place], [place] [phone] 05/30/2024 9:00 AM EST Office Visit [facility] Department of Internal Medicine [facility] [address] [facility] [address] [place], [place] [phone] Zohaib Aldana PA-C [address] [facility] [address] [place], [place] [phone] documented as of this encounter Procedures Procedure Name Priority Date/Time Associated Diagnosis Comments MRI ABDOMEN W W/O CONTRAST Routine 05/09/2022 2:16 PM EST Carcinoid tumor of ileum, 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 MRI PELVIS W W/O CONTRAST Routine 05/09/2022 2:16 PM EST Carcinoid tumor of ileum, 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 COMPLETE BLOOD COUNT, WITH DIFFERENTIAL STAT 03/15/2022 7:53 AM EST Carcinoid tumor of ileum, unspecified whether malignant Encounter for monitoring octreotide therapy Oncology follow-up encounter VITAMIN D, 25-HYDROXY Routine 03/15/2022 7:53 AM EST Carcinoid tumor of ileum, unspecified whether malignant Encounter for monitoring octreotide therapy Oncology follow-up encounter COMPREHENSIVE METABOLIC PANEL Routine 03/15/2022 7:53 AM EST Carcinoid tumor of ileum, unspecified whether malignant Encounter for monitoring octreotide therapy Oncology follow-up encounter documented in this encounter Results * MRI Pelvis w w/o contrast (05/09/2022 2:16 PM EST) Anatomical Region Laterality Modality Pelvis Magnetic Resonan ce 05/05/2022 8:45 AM EST 05/05/2022 8:45 AM EST Impressions 05/09/2022 2:16 PM EST When accounting for differences in measurement technique, no significant change in size of a 2.7 cm soft tissue mass in the central mesentery. A 1.1 cm short axis mesenteric node adjacent to the mass appears to be slightly increased in size from prior. Thank you for referring your patient to us, KATHRYN GREEN M.D. [id number] (Electronically Signed - 05/09/2022 14:16) Copy: [facility]- [facility]- [place] [address] [place] [address] Narrative 05/09/2022 2:16 PM EST EXAMINATION: MR ABDOMEN AND PELVIS WITHOUT AND WITH CONTRAST CLINICAL INFORMATION: History of benign carcinoid tumor of the ileum ?? COMPARISON: MR abdomen pelvis 10/07/2021 TECHNIQUE: MRI of the abdomen and pelvis before and after the IV administration of 7 mL of Gadavist was obtained using routine sequences. FINDINGS: LUNG BASES: The visualized lung bases are unremarkable. ?? KIDNEYS: Bosniak 1 benign-appearing right renal cysts, no imaging follow-up recommended. GALLBLADDER: Surgically absent. ?? LIVER AND BILIARY TREE: ??No loss of signal on opposed phase imaging suggesting hepatic steatosis. No suspicious liver lesion. No intra or extrahepatic biliary duct dilatation. PANCREAS: Unremarkable ?? SPLEEN: Unremarkable ?? ADRENAL GLANDS: Unremarkable ? GASTROINTESTINAL TRACT: Unremarkable. ?? LYMPH NODES: 2.7 x 2.1 cm solid enhancing mass in the right para midline central mesentery does not appear convincingly changed in size from prior previous a 2.6 x 2.2 cm. A 1.1 cm short axis mesenteric node, 1701:107 appears to be slightly increased from prior previously 0.9 cm. VASCULAR: Unremarkable ABDOMINAL WALL: Subcutaneous fat stranding in the bilateral gluteal soft tissues which on the left contains a foci of susceptibility suggesting calcification, possibly related to sequelae of prior injections. REPRODUCTIVE ORGANS: Nabothian cysts in the cervix. A 1.2 cm intramural myoma in the left body of the uterus. A 1.8 cm left hemorrhagic ovarian cyst. BLADDER: Unremarkable PELVIC FREE FLUID: No free fluid or ascites. OSSEOUS STRUCTURES: Unremarkable. Procedure Note Kathryn Green MD - 05/09/2022 EXAMINATION: MR ABDOMEN AND PELVIS WITHOUT AND WITH CONTRAST CLINICAL INFORMATION: History of benign carcinoid tumor of the ileum COMPARISON: MR abdomen pelvis 10/07/2021 TECHNIQUE: MRI of the abdomen and pelvis before and after the IV administration of 7mL of Gadavist was obtained using routine sequences. FINDINGS: LUNG BASES: The visualized lung bases are unremarkable. KIDNEYS: Bosniak 1 benign-appearing right renal cysts, no imagingfollow-up recommended. GALLBLADDER: Surgically absent. LIVER AND BILIARY TREE: No loss of signal on opposed phase imagingsuggesting hepatic steatosis. No suspicious liver lesion. No intra or extrahepatic biliary duct dilatation. PANCREAS: Unremarkable SPLEEN: Unremarkable ADRENAL GLANDS: Unremarkable GASTROINTESTINAL TRACT: Unremarkable. LYMPH NODES: 2.7 x 2.1 cm solid enhancing mass in the right para midline central mesentery does not appear convincingly changed in size fromprior previous a 2.6 x 2.2 cm. A 1.1 cm short axis mesenteric node, 1701:107appears to be slightly increased from prior previously 0.9 cm. VASCULAR: Unremarkable ABDOMINAL WALL: Subcutaneous fat stranding in the bilateral gluteal soft tissues which on the left contains a foci of susceptibility suggesting calcification, possibly related to sequelae of prior injections. REPRODUCTIVE ORGANS: Nabothian cysts in the cervix. A 1.2 cm intramuralmyoma in the left body of the uterus. A 1.8 cm left hemorrhagic ovarian cyst. BLADDER: Unremarkable PELVIC FREE FLUID: No free fluid or ascites. OSSEOUS STRUCTURES: Unremarkable. IMPRESSION: When accounting for differences in measurement technique, no significant change in size of a 2.7 cm soft tissue mass in the central mesentery. A1.1 cm short axis mesenteric node adjacent to the mass appears to be slightly increased in size from prior. Thank you for referring your patient to us, KATHRYN GREEN M.D. [id number] (Electronically Signed - 05/09/2022 14:16) Copy: ZOHAIB ALDANA PA-C [facility] [address] [facility] [address] [place] [address] Ricci Carter MD IMG MRI ORDERABLES * MRI Abdomen w w/o contrast (05/09/2022 2:16 PM EST) Anatomical Region Laterality Modality Abdomen Magnetic Resonan ce 05/05/2022 8:15 AM EST 05/05/2022 8:15 AM EST Impressions 05/09/2022 2:16 PM EST When accounting for differences in measurement technique, no significant change in size of a 2.7 cm soft tissue mass in the central mesentery. A 1.1 cm short axis mesenteric node adjacent to the mass appears to be slightly increased in size from prior. Thank you for referring your patient to us, KATHRYN GREEN M.D. [id number] (Electronically Signed - 05/09/2022 14:16) Copy: ZOHAIB ALDANA PA-C [facility] [address] [facility] [address] [place] [address] [phone] [facility] 05/09/2022 2:16 PM EST EXAMINATION: MR ABDOMEN AND PELVIS WITHOUT AND WITH CONTRAST CLINICAL INFORMATION: History of benign carcinoid tumor of the ileum ?? COMPARISON: MR abdomen pelvis 10/07/2021 TECHNIQUE: MRI of the abdomen and pelvis before and after the IV administration of 7 mL of Gadavist was obtained using routine sequences. FINDINGS: LUNG BASES: The visualized lung bases are unremarkable. ?? KIDNEYS: Bosniak 1 benign-appearing right renal cysts, no imaging follow-up recommended. GALLBLADDER: Surgically absent. ?? LIVER AND BILIARY TREE: ??No loss of signal on opposed phase imaging suggesting hepatic steatosis. No suspicious liver lesion. No intra or extrahepatic biliary duct dilatation. PANCREAS: Unremarkable ?? SPLEEN: Unremarkable ?? ADRENAL GLANDS: Unremarkable ? GASTROINTESTINAL TRACT: Unremarkable. ?? LYMPH NODES: 2.7 x 2.1 cm solid enhancing mass in the right para midline central mesentery does not appear convincingly changed in size from prior previous a 2.6 x 2.2 cm. A 1.1 cm short axis mesenteric node, 1701:107 appears to be slightly increased from prior previously 0.9 cm. VASCULAR: Unremarkable ABDOMINAL WALL: Subcutaneous fat stranding in the bilateral gluteal soft tissues which on the left contains a foci of susceptibility suggesting calcification, possibly related to sequelae of prior injections. REPRODUCTIVE ORGANS: Nabothian cysts in the cervix. A 1.2 cm intramural myoma in the left body of the uterus. A 1.8 cm left hemorrhagic ovarian cyst. BLADDER: Unremarkable PELVIC FREE FLUID: No free fluid or ascites. OSSEOUS STRUCTURES: Unremarkable. Procedure Note Kathryn Green MD - 05/09/2022 EXAMINATION: MR ABDOMEN AND PELVIS WITHOUT AND WITH CONTRAST CLINICAL INFORMATION: History of benign carcinoid tumor of the ileum COMPARISON: MR abdomen pelvis 10/07/2021 TECHNIQUE: MRI of the abdomen and pelvis before and after the IV administration of 7mL of Gadavist was obtained using routine sequences. FINDINGS: LUNG BASES: The visualized lung bases are unremarkable. KIDNEYS: Bosniak 1 benign-appearing right renal cysts, no imagingfollow-up recommended. GALLBLADDER: Surgically absent. LIVER AND BILIARY TREE: No loss of signal on opposed phase imagingsuggesting hepatic steatosis. No suspicious liver lesion. No intra or extrahepatic biliary duct dilatation. PANCREAS: Unremarkable SPLEEN: Unremarkable ADRENAL GLANDS: Unremarkable GASTROINTESTINAL TRACT: Unremarkable. LYMPH NODES: 2.7 x 2.1 cm solid enhancing mass in the right para midline central mesentery does not appear convincingly changed in size fromprior previous a 2.6 x 2.2 cm. A 1.1 cm short axis mesenteric node, 1701:107appears to be slightly increased from prior previously 0.9 cm. VASCULAR: Unremarkable ABDOMINAL WALL: Subcutaneous fat stranding in the bilateral gluteal soft tissues which on the left contains a foci of susceptibility suggesting calcification, possibly related to sequelae of prior injections. REPRODUCTIVE ORGANS: Nabothian cysts in the cervix. A 1.2 cm intramuralmyoma in the left body of the uterus. A 1.8 cm left hemorrhagic ovarian cyst. BLADDER: Unremarkable PELVIC FREE FLUID: No free fluid or ascites. OSSEOUS STRUCTURES: Unremarkable. IMPRESSION: When accounting for differences in measurement technique, no significant change in size of a 2.7 cm soft tissue mass in the central mesentery. A1.1 cm short axis mesenteric node adjacent to the mass appears to be slightly increased in size from prior. Thank you for referring your patient to us, KATHRYN GREEN M.D. [id number] (Electronically Signed - 05/09/2022 14:16) Copy: [facility] [address] [facility] [address] [place] [address] Ricci Carter MD [facility] MRI ORDERABLES * (ABNORMAL) VITAMIN D, 25-HYDROXY (03/15/2022 7:53 AM EST) Vitamin D,25-Oh,Total, IA 25(L) 30 - 100 ng/mL [facility] Comment: Vitamin D Status ? 25-OH Vitamin D: Deficiency: ?<20 ng/mL Insufficiency: ? 20 - 29 ng/mL Optimal: ? > or = 30 ng/mL For 25-OH Vitamin D testing on patients on D2-supplementation and patients for whom quantitation of D2 and D3 fractions is required, the QuestAssureD(TM) 25-OH VIT D, (D2,D3), LC/MS/MS is recommended: order code 85907 (patients >2yrs). See Note 1 Note 1 For additional information, please refer to http://education.CytoPherx/faq/OAE811 (This link is being provided for informational/ educational purposes only.) Blood specimen (specimen) Blood specimen / Unknown 03/15/2022 7:53 AM EST 03/15/2022 10:46 PM EST Ricci Carter MD LAB BLOOD ORDERABLES [facility] [address] [place] [address], [place] [phone] * (ABNORMAL) Comprehensive Metabolic Panel (03/15/2022 7:53 AM EST) Pathologist [facility] Glucose 96 65 - 99 mg/dL [facility], [facility] Comment: ? Fasting reference interval Blood Urea Nitrogen (BUN) 13 7 - 25 mg/dL [facility], [facility] [address] Creatinine 0.76 0.50 - 0.99 mg/dL [facility], [facility] Creatinine w/ eGFR 96 > OR = 60 mL/min/1. 73m2 [facility] Comment: The eGFR is based on the CKD-EPI 2020 equation. To calculate the new eGFR from a previous Creatinine or Cystatin C result, go to https://www.kidney.org/professionals/ kdoqi/gfr%5Fcalculator BUN/Creatinine Ratio NOT APPLICABLE (calc) [facility], [facility] Sodium 138 135 - 146 mmol/L [facility], [place] Potassium 4.5 3.5 - 5.3 mmol/L [facility] [facility] Chloride 102 98 - 110 mmol/L [facility] [facility] [place] [facility] CO2 30 20 - 32 mmol/L [facility], [facility] [place] [address] Calcium 9.2 8.6 - 10.2 mg/dL [facility], [facility] [place] Protein, Total 6.5 6.1 - 8.1 g/dL [facility], [facility] [place] Albumin 4.0 3.6 - 5.1 g/dL [facility], [facility] [place] Globulin 2.5 1.9 - 3.7 g/dL (calc) [facility], [facility] [place] Albumin/Globuli n Ratio 1.6 1.0 - 2.5 (calc) [facility], [facility] [place] Bilirubin, Total 0.4 0.2 - 1.2 mg/dL [facility], [facility] [place] Alkaline Phosphatase 78 31 - 125 U/L [facility], [facility] [place] Aspartate Aminotrans (AST) 37(H) 10 - 35 U/L [facility], [facility] [facility] ord CL 0091 Alanine Aminotrans (ALT) 38(H) 6 - 29 U/L [facility], [facility] ord CL 0091 Blood specimen (specimen) Blood specimen / Unknown 03/15/2022 7:53 AM EST 03/15/2022 10:46 PM EST Ricci Carter MD LAB BLOOD ORDERABLES [facility], [facility] [address] [place] [address] * (ABNORMAL) Complete Blood Count, with Differential (03/15/2022 7:53 AM EST) White Blood Cell Count 6.2 3.8 - 10.8 Thousand/u L [facility], [facility] CL 0091 Red Blood Cell Count 3.99 3.80 - 5.10 Million/uL [facility], [facility] rd CL 0091 Hemoglobin 11.2(L) 11.7 - 15.5 g/dL [facility], [facility] rd CL 0091 Hematocrit 33.9(L) 35.0 - 45.0 % [facility], [facility] rd CL 0091 MCV 85.0 80.0 - 100.0 fL [facility], [facility] CL 0091 MCH 28.1 27.0 - 33.0 pg [facility], [facility] rd CL 0091 MCHC 33.0 32.0 - 36.0 g/dL [facility], [facility] 0091 RDW 14.5 11.0 - 15.0 % [facility], [facility] CL 0091 Platelet Count 237 140 - 400 Thousand/u L [facility], [facility] rd CL 0091 MPV 11.2 7.5 - 12.5 fL [facility], [facility] CL 0091 Abs Neutrophils Auto 3,360 1,500 - 7,800 cells/uL [facility], [facility] rd CL 0091 Abs Lymphocytes Auto 2,102 850 - 3,900 cells/uL [facility], [facility] rd CL 0091 Abs Monocytes Auto 583 200 - 950 cells/uL [facility], [facility] rd CL 0091 Abs Eosinophils Auto 93 15 - 500 cells/uL [facility], [facility] rd CL 0091 Abs Basophils Auto 62 0 - 200 cells/uL [facility], [facility] rd CL 0091 Neutrophils Auto 54.2 % [facility], [facility] rd CL 0091 Lymphocytes Auto 33.9 % [facility], [facility] rd CL 0091 Monocytes Auto 9.4 % [facility], [facility] rd CL 0091 Eosinophils Auto 1.5 % [facility], [facility] rd CL 0091 Basophils Auto 1.0 % [facility], [facility] rd CL 0091 Blood specimen (specimen) Blood specimen / Unknown 03/15/2022 7:53 AM EST 03/15/2022 10:46 PM EST Ricci Carter MD LAB BLOOD ORDERABLES [facility], [facility] CL [address] [place] [address] documented in this encounter Visit Diagnoses Diagnosis Carcinoid tumor of ileum, unspecified whether malignant (HCC)- Primary Encounter for monitoring octreotide therapy Diarrhea, unspecified type Oncology follow-up encounter documented in this encounter Care Teams Thermodynamics Teacher Relationship Specialty Start Date End Date Zohaib Aldana PA-C [address] [address] PCP - General 05/01/19 Madi Sharp MD [address] [place] [address] Gastroenterology 10/02/19 documented as of this encounter
--- OUTSIDE RECORDS SUMMARY | 2023-10-29 17:47 | XMS_ITS | Encounter Summary ---
Author Organization [facility] Address [address] [place] [address] Care Team Providers Care Adult School Counselor Name Role Phone Consuelo Hobbs PA-C Primary Care Provider Madi Sharp MD Unavailable [phone] Encounter Details Date Type Department Care Team (Latest Contact Info) Description 02/07/2022 Travel Social History Tobacco Use Types Packs/Day [...] Visit [facility] [place] [facility] at [address] [phone] Ricci Carter MD [address] [place] [address] 11/13/2023 8:30 AM EDT Infusion [facility] [place] at [facility] [place] [address] [place] [address] Ricci Carter MD [address] [place] [address] Keiko Hallman MD [address] [facility] [place] [address] 11/20/2023 11:00 AM EDT Appointment [facility] Radiology [facility] [address] [place] [phone] Ricci Carter MD [address] [place] [address] 11/20/2023 11:30 AM EDT Appointment [facility] Radiology [facility] [address] [place] [phone] Ricci Carter MD [address] [place] [address] 03/05/2024 11:00 AM EST Consult [facility] Cardiology [place] [address] [facility] [address] [place] [phone] Ricci Carter MD [address] [place] [address] Jamil Ralph MD [address] [facility] [address] [place] [address] 05/30/2024 9:00 AM EST Office Visit [facility] Department of Internal Medicine [facility] [place] [facility] [place] [address] [facility] [address] [place] [phone] Consuelo Hobbs PA-C 1210 [facility] [address] [place], [place] [phone] documented as of this encounter Visit Diagnoses Not on filedocumented in this encounter Care Teams Adult School Counselor Relationship Specialty Start Date End Date Consuelo Hobbs PA-C [address] [phone] PCP - General 05/01/19 Madi Sharp MD [address] [place] [address] Gastroenterology 10/02/19 documented as of this encounter
--- OUTSIDE RECORDS SUMMARY | 2023-10-29 17:47 | XMS_ITS | Encounter Summary ---
Author Organization [facility] Address [address] [place] [address] Care Team Providers Care Lapel Stitcher Name Role Phone Consuelo Hobbs PA-C Primary Care Provider Madi Sharp MD Unavailable [phone] Encounter Details Date Type Department Care Team (Latest Contact Info) Description 11/15/2021 Travel Social History Tobacco Use Types Packs/Day [...] was confirmed or suspected to have Coronavirus/COVID-19? Yes 11/15/2021 4:20 PM EDT documented as of this encounter Plan of Treatment Upcoming Encounters Date Type Department Care Team ( st Contact Info) Description 11/13/2023 7:45 AM EDT Office Visit [facility] [place] [facility] at [address] [phone] Ricci Carter MD [address] [place] [address] 11/13/2023 8:30 AM EDT Infusion [facility] [place] at [facility] [address] [phone] Ricci Carter MD [address] [place], [place] [phone] Keiko Hallman MD 80 [facility] [place] [address] 11/20/2023 11:00 AM EDT Appointment [facility] Radiology [facility] [address] [place] [phone] Ricci Carter MD [address] [place] [address] 11/20/2023 11:30 AM EDT Appointment [facility] Radiology [facility] [address] [place] [phone] Ricci Carter MD [address] [place] [address] 03/05/2024 11:00 AM EST Consult [facility] Cardiology [place] [address] [facility] [address] [place] [phone] Ricci Carter MD [address] [place] [address] Jamil Ralph MD [address] [facility] [address] [place] [address] 05/30/2024 9:00 AM EST Office Visit [facility] Department of Internal Medicine [facility] [place]Note 2] [address] [facility] [address] [place] [phone] Consuelo Hobbs PA-C 1210 [facility] [address] [place] [address] documented as of this encounter Visit Diagnoses Not on filedocumented in this encounter Care Teams Lapel Stitcher Relationship Specialty Start Date End Date Consuelo Hobbs PA-C [address] [phone] PCP - General 05/01/19 Madi Sharp MD [address] [place] [phone] Gastroenterology 10/02/19 documented as of this encounter
--- OUTSIDE RECORDS SUMMARY | 2023-10-29 17:47 | XMS_ITS | Encounter Summary ---
Author Organization [facility] Address [address] [place] [address] Care Team Providers Care Hims Clerk Name Role Phone Consuelo Hobbs PA-C Primary Care Provider Madi Sharp MD Unavailable [phone] Encounter Details Date Type Department Care Team (Latest Contact Info) Description 02/28/2022 Travel Social History Tobacco Use Types Packs/Day [...] suspected to have Coronavirus/COVID-19? No / Unsure 02/28/2022 9:41 AM EST documented as of this encounter Plan of Treatment Upcoming Encounters Date Type Department Care Team (Late st Contact Info) Description 11/13/2023 7:45 AM EDT Office Visit [facility] [place] [facility] at [address] [phone] Ricci Carter MD [address] [place] [address] 11/13/2023 8:30 AM EDT Infusion [facility] [place] at [facility] Outpatient [facility]fusion Center [place] [address] [place] [address] Ricci Carter MD [address] [place] [address] Keiko Hallman MD 80 [facility] [place] [address] 11/20/2023 11:00 AM EDT Appointment [facility] Radiology [facility] [address] [place] [phone] Ricci Carter MD [address] [place] [address] 11/20/2023 11:30 AM EDT Appointment [facility] Radiology [facility] [address] [place] [phone] Ricci Carter MD [address] [place] [address] 03/05/2024 11:00 AM EST Consult [facility] Cardiology [place] [address] [facility] [address] [place] [phone] Ricci Carter MD [address] [place] [address] Jamil Ralph MD [address] [facility] [address] [place] [address] 05/30/2024 9:00 AM EST Office Visit [facility] Physicians Department of Internal Medicine [facility] 1210 [facility] [address] [place] [phone] Consuelo Hobbs PA-C 1210 [facility] 109 [place], [place] [phone] documented as of this encounter Visit Diagnoses Not on filedocumented in this encounter Care Teams Hims Clerk Relationship Specialty Start Date End Date Consuelo Hbobs PA-C [address] [phone] PCP - General 05/01/19 Madi Sharp MD [address] [place] [address] Gastroenterology 10/02/19 documented as of this encounter
--- OUTSIDE RECORDS SUMMARY | 2023-10-29 17:47 | XMS_ITS | Encounter Summary ---
Author Organization [facility] Address [address] [place] [address] Care Team Providers Care Regulator Inspector Name Role Phone Consuelo Hobbs PA-C Primary Care Provider Madi Sharp MD Unavailable [phone] Encounter Details Date Type Department Care Team ([facility] st Contact Info) Description 12/14/2021 8:15 AM EDT Office Visit [facility] [place] [facility] at [address] [phone] Ricci Carter MD [address] [place] [address] Carcinoid tumor of ileum, unspecified whether malignant (Primary Dx); Oncology follow-up encounter; Encounter for monitoring octreotide therapy; Diarrhea, unspecified type; Carcinoid tumor of ileum [...] Sign Reading Time Taken Comments Blood Pressure 123/76 12/14/2021 8:19 AM EDT Pulse 80 12/14/2021 8:19 AM EDT Temperature 36.3 ??C (97.3 ??F) 12/14/2021 8:19 AM ED T Respiratory Rate 20 12/14/2021 8:19 AM EDT Oxygen Saturation 96% 12/14/2021 8:19 AM EDT Inhaled Oxygen Concentration - - Weight 71.2 kg (157 lb) 12/14/2021 8:19 AM EDT Height - - Body Mass Index 27.81 03/26/2021 12:49 PM EST documented in this encounter Progress Notes * Ricci Carter MD - 12/14/2021 8:15 AM EDT Images from the original note were not included. Medical Oncology/Hematology Progress Note Healthcare Team: Consuelo Hobbs PA-C Subjective: Date of visit is: 12/14/2021 Rody Sotelo is a 51 y.o. female who presents here today for a follow- up visit regarding carcinoid. ONCOLOGY HISTORY: - December 16, 2019, colonoscopy was normal. Interim History: Diagnosed with COVID-19 in November 2021. She did not get treated. All symptoms resolved, but she hascontinued fatigued. She reports no new GI symptoms. Diarrhea is the same. The usual symptoms. Still with 4-5 stools/day(1-2 stools are liquid/soft). - taking colestipol only once daily - taking granisetron 2 mg at bedtime - taking ~12 mg loperamide per day She reports no side effects from Sandostatin LAR. She has not required short acting octreotide. She denies flushing. She denies pain Pain: 0 REVIEW OF SYSTEMS: Review of Systems Constitutional: Positive for fatigue. Negative for appetite change, chills, diaphoresis, fever and unexpected weight change. HENT: Negative for nosebleeds. Respiratory: Negative for chest tightness, cough, shortness of breath and wheezing. Cardiovascular: Negative for chest pain and leg swelling. Gastrointestinal: Negative for abdominal pain, blood in stool, nausea and vomiting. Cramping the same Endocrine: Negative for hot flashes. Musculoskeletal: Negative for back pain. Completed PT Skin: Negative for rash. Neurological: Positive for headaches (migraines, stable). Negative for dizziness and light-headedness. Hematological: Does not bruise/bleed easily. Psychiatric/Behavioral: Positive for sleep disturbance (stable). The remainder of the 12- point ROS are within normal limits with the exceptions as noted in the HPI. Allergies Allergies Allergen Reactions ??? Levaquin [Levofloxacin] Myalgia/Myositis/Arthralgia/Arthritis ??? Cefaclor GI Intolerance/Nausea/Vomiting ??? Erythromycin GI Intolerance/Nausea/Vomiting Medications Current Outpatient Medications: ??? calcium carbonate (OS-ANGELICA) 600 MG tablet, Take 600 mg by mouth every morning with breakfast., Disp: , Rfl: ??? Cannabis (MARIJUANA) Misc Medical Prescription Strength, as needed., Disp: , Rfl: ??? colestipol (COLESTID) 1 g tablet, Take 2 tablets (2 g total) by mouth 2 (two) times a day. Witha large glass of water. (Patient taking differently: Take 1 g by mouth 2 (two) times a day. With a large glass of water. 1g BID), Disp: 120 tablet, Rfl: 5 ??? CREON [address] Particles capsule, 36,000 Units 3 (three) times a day with meals. , Disp: , Rfl: ??? ergotamine-caffeine (CAFERGOT) 1-100 MG per tablet, TAKE 1 TABLET BY MOUTH TWICE DAILY NEEDED, Disp: 12 tablet, Rfl: 3 ??? famotidine (PEPCID) 40 MG tablet, Take 40 mg by mouth 2 (two) times a day., Disp: , Rfl: ??? granisetron (KYTRIL) 1 MG tablet, Take 2 tablets (2 mg total) by mouth daily., Disp: 60 tablet,Rfl: 5 ??? loperamide (IMODIUM A-D) 2 MG capsule, Take 2 mg by mouth 4 (four) times a day as needed for diarrhea., Disp: , Rfl: ??? Multiple Vitamin tablet, Take 1 tablet by mouth daily., Disp: , Rfl: ??? nirmatrelvir-ritonavir (PAXLOVID EMERGENCY USE) therapy pack, Take 3 Tablets - 300 mg Nirmatrelvir (2 x 150 mg tablets) with 100 mg Ritonavir (1 x 100 mg tablet) twice daily by mouth for 5 Days. Dispense #20 Nirmatrelvir 150 mg Tablets and #10 Ritonavir 100 mg tablets., Disp: 30 tablet, Rfl: 0 ??? octreotide (SandoSTATIN LAR) 10 MG IM injection, Inject 40 mg into the shoulder, thigh, or buttocks every 21 days., Disp: , Rfl: ??? OMEprazole (PriLOSEC) 20 MG capsule, Take 20 mg by mouth every morning before breakfast., Disp:, Rfl: ??? rizatriptan (MAXALT-PRESS MANAGER) 10 MG disintegrating tablet, DISSOLVE ONE TABLET BY MOUTH EVERY DAY ASNEEDED, Disp: 9 tablet, Rfl: 0 ??? Vitamin D3 (CHOLECALICEROL) 50 MCG (2000 UT) tablet, Take 2,000 Units by mouth daily., Disp: , Rfl: ??? octreotide (SandoSTATIN) 100 MCG/ML injection, Inject 1 mL (100 mcg total) under the skin 3 times daily (every 8 hours) as needed (diarrhea, flushing)., Disp: 90 mL, Rfl: 11 Past Medical History Past Medical History: Diagnosis [...] ENDOSCOPY UPPER; Surgeon: Madi Sharp MD; Location: [facility]; Service: Gastroenterology; Laterality: N/A; ??? HEMICOLECTOMY Right [...] Social History Tobacco Use Smoking Status Former Smoker ??? Packs/day: 0.25 ??? Years: 22.00 ??? Pack years: 5.50 ??? Types: Cigarettes ??? Quit date: 05/17/2021 ??? Years since quittin.5 Smokeless Tobacco Never Used Social History Substance and Sexual Activity Alcohol Use Not Currently Social History Substance and Sexual Activity Drug Use Yes ??? Types: Marijuana Objective: Wt Readings from Last 2 Encounters: 12/14/21 71.2 kg (157 lb) 12/03/21 68.1 kg (150 lb 3.2 oz) Physical Exam Vitals: 12/14/21 0819 BP: 123/76 BP Location: Right arm Pulse: 80 Resp: 20 Temp: 97.3 ??F (36.3 ??C) TempSrc: Temporal SpO2: 96% Weight: 71.2 kg (157 lb) Performance status: ECOG (0) Fully active, [...] content normal. Judgment: Judgment normal. Results: - October 07, 2021, MR ABDOMEN AND PELVIS WITHOUT AND WITH CONTRAST ?? CLINICAL INFORMATION: Carcinoid ?? COMPARISON: MR pelvis 01/18/2021 FINDINGS: ?? LUNG BASES: The visualized lung bases are unremarkable. ?? KIDNEYS: Benign-appearing T2 hyperintense right renal cyst, no imaging follow-up recommended. ?? GALLBLADDER: Surgically absent. ?? LIVER AND BILIARY TREE: Loss of signal on opposed phase imaging compatible with hepatic steatosis. No suspicious liver lesion. No intra or extrahepatic biliary duct dilatation. ?? PANCREAS: Unremarkable ?? SPLEEN: Unremarkable ?? ADRENAL GLANDS: Unremarkable ?? GASTROINTESTINAL TRACT: Unremarkable. ?? LYMPH NODES: A 0.8 cm short axis mesenteric node, 1702:103 appears unchanged from prior. A enhancing soft tissue mass in the central mesentery measuring approximately 2.5 x 1.8 cm, previously 2.5 x 1.8 cm not significantly changed. No new or increasing adenopathy. ?? VASCULAR: Unremarkable ?? ABDOMINAL WALL: Unremarkable. ?? REPRODUCTIVE ORGANS: Uterus and ovaries are unremarkable. ?? BLADDER: Unremarkable ?? PELVIC FREE FLUID: No free fluid or ascites. ?? OSSEOUS STRUCTURES: Unremarkable. ?? IMPRESSION: ?? No significant interval change from prior with a stable 2.5 cm soft tissue mass in the central mesentery and a prominent 0.8 cm short axis mesenteric node. No new or increasing adenopathy. Lab Results Component Value Date WBC 6.2 08/03/2021 HGB 12.3 08/03/2021 HCT 38.1 08/03/2021 MCV 88 08/03/2021 PLT 229 08/03/2021 Lab Results Component Value Date NEUTROABS 2.90 08/03/2021 Lab Results Component Value Date ALT 22 08/03/2021 AST 24 08/03/2021 ALKPHOS 67 08/03/2021 BILITOT 0.3 08/03/2021 Lab Results Component Value Date GLUC 91 08/03/2021 CALCIUM 9.2 08/03/2021 NA 140 08/03/2021 K 4.2 08/03/2021 CO2 27 08/03/2021 CL 106 08/03/2021 BUN 14 08/03/2021 CREAT 0.77 08/03/2021 Assessment/Plan: 1. Carcinoid, [id number] A. Diagnosed July 11, 2013 1. S/p [...] a follow- up visit regarding carcinoid. Rody returns here today for routine oncologic follow-up for her carcinoid. She last received Sandostatin LAR on December 03, 2021. She is tolerating Sandostatin LAR without any side effects (or toxicities). On November 10, 2021, she tested positive for COVID-19. She has made a full clinical recovery. On October 07, 2021, re- staging MRI abdomen/pelvis revealed: stable radiographic findings. There is nosignificant interval change. There is a stable 2.5 cm soft tissue mass involving central mesentery,and a prominent 0.8 cm short axis mesenteric node without any new or increasing adenopathy. The 25- hydroxy vitamin D level still has not been performed. This will be re- ordered today. Overall, Rody is clinically stable. She feels that her diarrhea is well managed with her current therapeutic regimen. I have recommended no changes to current therapy, though I have recommended she increase her colestipol to 2 grams twice daily. Continue Sandostatin LAR 40 mg every 3 weeks, granisetron 2 mg once daily, and Creon. Continue loperamide and short acting octreotide prn. She is controlling her diet, though she does feel that her diet can be improved. Sandostatin LAR on December 24, 2021. Labs today. She continues to remain tobacco free. ORDERS 1. Carcinoid tumor of ileum, unspecified whether malignant 2. Diarrhea, unspecified type 3. Carcinoid tumor of ileum - POCT Complete Blood Count - Comprehensive Metabolic Panel - 25, OH D - colestipol (COLESTID) 1 g tablet; Take 2 tablets (2 g total) by mouth 2 (two) times a day. With alarge glass of water. Dispense: 120 tablet; Refill: 5 - pancrelipase, Luz-Ugeq-Jhhf, (Creon) 44126-121175 units Cap DR Particles capsule; Take 1 capsule (36,000 units of lipase total) by mouth 3 (three) times a day with meals. Dose is in units of lipase. Dispense: 90 capsule; Refill: 5 Orders Placed This Encounter Procedures ??? Comprehensive Metabolic Panel Order Specific Question: Release to Patient Answer: Immediate Release ??? POCT Complete Blood Count The patient will return in 12 weeks. There are no Patient Instructions on file for this visit. documented in this encounter Plan of Treatment Upcoming Encounters Date Type Department Care Team (Late st Contact Info) Description 11/13/2023 7:45 AM EDT Office Visit [facility] at [address] [place] [phone] Ricci Carter MD [address] [place] [address] 11/13/2023 8:30 AM EDT Infusion [facility] [facility] [address] [phone] Ricci Carter MD [address] [place] [address] Keiko Hallman MD 80 [facility] [place] [address] 11/20/2023 11:00 AM EDT Appointment [facility] Radiology [facility] [address] [place] [phone] Ricci Carter MD [address] [place], [place] [phone] 11/20/2023 11:30 AM EDT Appointment [facility] [address] [place] [address] [phone] Ricci Carter MD [address] [place], [place] [phone] 03/05/2024 11:00 AM EST Consult [facility] [address] [place] [phone] Ricci Carter MD [address] [place], [place] [phone] Jamil Ralph MD [address] [facility] [address] [place], [place] [phone] 05/30/2024 9:00 AM EST Office Visit [facility] Department of Internal Medicine [address] [place], [place] [phone] Consuelo Hobbs PA-C [address] [facility] [address] [place] [address] documented as of this encounter Procedures Procedure Name Priority Date/Time Associated Diagnosis Comments VITAMIN D, 25-HYDROXY Routine 12/14/2021 8:42 AM EDT Carcinoid tumor of ileum, unspecified whether malignant Diarrhea, unspecified type POCT CBC WITH DIFFERENTIAL (NO BILL-REPORTABLE ONLY 3 PART)(ONCOLOGY-INTERFA CHARLIE) Routine 12/14/2021 8:39 AM EDT COMPREHENSIVE METABOLIC PANEL Routine 12/14/2021 8:20 AM EDT Carcinoid tumor of ileum, unspecified whether malignant Oncology follow-up encounter Encounter for monitoring octreotide therapy Diarrhea, unspecified type documented in this encounter Results * (ABNORMAL) Vitamin D, 25-Hydroxy - [facility] (12/14/2021 8:42 AM EDT) Vitamin D,25-Oh,Total, IA 15(L) 30 - 100 ng/mL [facility] Comment: Vitamin D Status ? 25-OH Vitamin D: Deficiency: ?<20 ng/mL Insufficiency: ? 20 - 29 ng/mL Optimal: ? > or = 30 ng/mL For 25-OH Vitamin D testing on patients on D2-supplementation and patients for whom quantitation of D2 and D3 fractions is required, the Quest[facility]ure[facility](TM) 25-OH VIT D, (D2,D3), LC/MS/MS is recommended: order code 34375 (patients >2yrs). See Note 1 Note 1 For additional information, please refer to http://education.RetAPPs/faq/NBI316 (This link is being provided for informational/ educational purposes only.) Blood specimen (specimen) Blood specimen / Unknown 12/14/2021 8:42 AM EDT 12/14/2021 4:27 PM EDT Ricci Carter MD LAB BLOOD ORDERABLES [facility] [facility] [employer] [address], [place] [address] * (ABNORMAL) POCT CBC with Differential (12/14/2021 8:39 AM EDT) White Blood Cell Count 5.8 4.0 - 11.0 Thou/uL 12/14/2021 8:50 AM EDT [facility] Red Blood Cell Count 3.94(L) 4.00 - 5.40 Mil/uL 12/14/2021 8:50 AM EDT [facility] Hemoglobin 11.0(L) 11.7 - 15.7 g/dL 12/14/2021 8:50 AM EDT [facility] Hematocrit 34.8(L) 35.0 - 47.0 % 12/14/2021 8:50 AM EDT [facility] MCV 88 80 - 100 fL 12/14/2021 8:50 AM EDT [facility] MCH 27.9 27.0 - 31.0 pg 12/14/2021 8:50 AM EDT [facility] MCHC 31.6 30.0 - 36.0 g/dL 12/14/2021 8:50 AM EDT [facility] RDW 13.9 11.5 - 14.5 % 12/14/2021 8:50 AM EDT [facility] Platelet Count 201 150 - 450 Thou/uL 12/14/2021 8:50 AM EDT [facility] MPV 9.9 9.4 - 12.5 fL 12/14/2021 8:50 AM EDT [facility] Neutrophils Auto 46.3 % 12/15/19 22 8:50 AM EDT [facility] Abs Neutrophils Auto 2.70 2.00 - 7.50 Thou/uL 12/14/2021 8:50 AM EDT [facility] Lymphocytes Auto 44.3 % 12/15/19 8:50 AM EDT [facility] Abs Lymphocytes Auto 2.60 1.50 - 4.50 Thou/uL 12/14/2021 8:50 AM EDT [facility] Mixed Mononuclear Auto 9.4 % 12/14/2021 8:50 AM EDT [facility] Abs Mixed Mononuclear Auto <1.00 0.20 - 1.90 Thou/uL 12/14/2021 8:50 AM EDT [facility] Blood specimen / Unknown 12/14/2021 8:39 AM EDT 12/14/2021 8:50 AM EDT Ricci Carter MD POCT ORDERABLES - [facility] [address] [facility] [place] [address] * Comprehensive Metabolic Panel (12/14/2021 8:20 AM EDT) Glucose 85 65 - 99 mg/dL [facility] 00[facility] Comment: ? Fasting reference interval Blood Urea Nitrogen (BUN) 13 7 - 25 mg/dL [email or web address] Creatinine 0.74 0.50 - 0.99 mg/dL [facility] Creatinine w/ eGFR 99 > OR = 60 mL/min/1. 73m2 [facility] Comment: The eGFR is based on the CKD-EPI 2020 equation. To calculate the new eGFR from a previous Creatinine or Cystatin C result, go to https://www.kidney.org/professionals/ kdoqi/gfr%5Fcalculator BUN/Creatinine Ratio NOT APPLICABLE (calc) [facility] 0091 Sodium 139 135 - 146 mmol/L [facility] Potassium 4.8 3.5 - 5.3 mmol/L [facility] Chloride 103 98 - 110 mmol/L [facility] CO2 32 20 - 32 mmol/L [facility] Calcium 9.1 8.6 - 10.2 mg/dL [facility] Protein, Total 6.4 6.1 - 8.1 g/dL [facility] Albumin 3.9 3.6 - 5.1 g/dL [facility] Globulin 2.5 1.9 - 3.7 g/dL (calc) [facility], [facility] 0091 Albumin/Globuli n Ratio 1.6 1.0 - 2.5 (calc) [facility], [facility] 0091 Bilirubin, Total 0.3 0.2 - 1.2 mg/dL [facility], [facility] ord CL 0091 Alkaline Phosphatase 68 31 - 125 U/L [facility], [facility] 0091 Aspartate Aminotrans (AST) 24 10 - 35 U/L [facility], [facility] ord CL 0091 Alanine Aminotrans (ALT) 18 6 - 29 U/L [facility], [facility] ord CL 0091 Blood specimen (specimen) Blood specimen / Unknown 12/14/2021 8:20 AM EDT 12/14/2021 4:26 PM EDT Ricci Carter MD LAB BLOOD ORDERABLES [facility], [facility] [address] [place] [phone] documented in this encounter Visit Diagnoses Diagnosis Carcinoid tumor of ileum, unspecified whether malignant (HCC)- Primary Oncology follow-up encounter Encounter for monitoring octreotide therapy Diarrhea, unspecified type documented in this encounter Care Teams Regulator Inspector Relationship Specialty Start Date End Date Consuelo Hobbs PA-C [address] [place] [id number] PCP - General 05/01/19 Madi Sharp MD [address] [address] Gastroenterology 10/02/19 documented as of this encounter
--- OUTSIDE RECORDS SUMMARY | 2023-10-29 17:47 | XMS_ITS | Encounter Summary ---
Author Organization [facility] Address [address] [place] [address] Care Team Providers Care Wage And Salary Administrator Name Role Phone Consuelo Hobbs PA-C Primary Care Provider Madi Sharp MD Unavailable [phone] Reason for Visit * Episode Based Medications (Routine) - Authorized Specialty Diagnoses / Procedures Referred By Contac t Referred To Contact Diagnoses Carcinoid tumor of ileum, unspecified whether malignant (HCC) Keiko Hallman MD 80 [facility] [place] [address] [address] [phone] Referral ID Status Reason Start Date Expiration Date V isits Requested Visits Authorized [id number] Authorized 04/29/2022 11/27/2023 5 2 Encounter Details Date Type Department Care Team (Late st Contact Info) Description 12/03/2021 8:30 AM EDT Infusion [facility] [place] [facility] [address] [phone] Ricci Carter MD [address] [place] [address] Keiko Hallman MD [address] [facility] [place] [address] Alissa Sánchez RN [address] [facility] [address] [place] [address] Carcinoid tumor of ileum, unspecified whether malignant [...] Sign Reading Time Taken Comments Blood Pressure 149/79 12/03/2021 9:00 AM EDT Pulse 81 12/03/2021 9:00 AM EDT Temperature 36.8 ??C (98.2 ??F) 12/03/2021 9:00 AM ED T Respiratory Rate 16 12/03/2021 9:00 AM EDT Oxygen Saturation 98% 12/03/2021 9:00 AM EDT Inhaled Oxygen Concentration - - Weight 68.1 kg (150 lb 3.2 oz) 12/03/2021 9:00 A M EDT Height - - Body Mass Index 26.61 03/26/2021 12:49 PM EST documented in this encounter Plan of Treatment Upcoming Encounters Date Type Department Care Team (Late st Contact Info) Description 11/13/2023 7:45 AM EDT Office Visit [facility] [place] [facility] at [address] [phone] Ricci Carter MD [address] [place] [address] 11/13/2023 8:30 AM EDT Infusion [facility] [place] [facility] [address] [phone] Ricci Carter MD [address] [place] [address] eKiko Hallman MD 80 [facility] [place] [address] 11/20/2023 11:00 AM EDT Appointment [facility] Radiology [facility] [address] [place] [phone] Ricci Carter MD [address] [place] [address] 11/20/2023 11:30 AM EDT Appointment [facility] Radiology [facility] [address] [place] [phone] Ricci Carter MD [address] [place], [place] [phone] 03/05/2024 11:00 AM EST Consult [facility] Cardiology [place] [address] [facility] [address] [place] [phone] Ricci Carter MD [address] [place] [address] Jamil Ralph MD [address] [facility] [address] [place], [place] [phone] 05/30/2024 9:00 AM EST Office Visit [facility] Department of Internal Medicine [facility] [place] [address] [phone] Consuelo Hobbs PA-C [address] [phone] documented as of this encounter Visit Diagnoses Diagnosis Carcinoid tumor of ileum, unspecified whether malignant (HCC)- Primary documented in this encounter Administered Medications Inactive Administered Medications - up to 1 most recent administrations Medication Order MAR Action Action Date Dose Rate Site octreotide (SandoSTATIN LAR) IM injection 40 mg 40 mg, Intramuscular, Once, On Mon12/03/21 at 0930, For 1 dose, Administer IM intragluteal (avoid deltoid administration). For intraMUSCULAR use ONLY. Must be administered immediately after mixing. Given 12/03/2021 9:03 AM EDT 40 mg Left Gluteal Upper Outer Quadrant documented in this encounter Care Teams Wage And Salary Administrator Relationship Specialty Start Date End Date Consuelo Hobbs PA-C [address] [phone] PCP - General 05/01/19 Madi Sharp MD [address] [place] [address] Gastroenterology 10/02/19 documented as of this encounter
--- OUTSIDE RECORDS SUMMARY | 2023-10-29 17:47 | XMS_ITS | Encounter Summary ---
Author Organization [facility] Address [address] [place] [address] Care Team Providers Care Visual Arts Teacher Name Role Phone Consuelo Hobbs PA-C Primary Care Provider Madi Sharp MD Unavailable [phone] Encounter Details Date Type Department Care Team (Late st Contact Info) Description 09/21/2021 Orders Only [facility] Cancer [place] Medical Oncology at [address] [phone] Violet Danielle, GASOLINE TRUCK OPERATOR [address] [place] [address] Carcinoid tumor of ileum, unspecified whether malignant [...] suspected to have Coronavirus/COVID-19? No / Unsure 09/21/2021 8:53 AM EDT documented as of this encounter Plan of Treatment Upcoming Encounters Date Type Department Care Team (Late st Contact Info) Description 11/13/2023 7:45 AM EDT Office Visit [facility] Medical Oncology at [address] [phone] Ricci Carter MD [address] [place] [address] 11/13/2023 8:30 AM EDT Infusion [facility] Cancer [place] at [facility] Outpatient Infusion Center [address] [phone] Ricci Carter MD [address] [place] [place], [place] [phone] Keiko Hallman MD 80 [facility] [place] [address] 11/20/2023 11:00 AM EDT Appointment [facility] Radiology Shay Mammography [address] [place] [address] [phone] Ricci Carter MD [address] [place] [place], [place] [id number] 11/20/2023 11:30 AM EDT Appointment [facility] Radiology [place] Mammography [address] [place] [address] [phone] Ricci Carter MD [address] [place], [place] [id number] 03/05/2024 11:00 AM EST Consult [facility] Cardiology [address] [place] [address] [phone] Ricci Carter MD [address] [place] [address] Jamil Ralph MD [address] [facility] [address] [place] [address] 05/30/2024 9:00 AM EST Office Visit [facility] Department of Internal Medicine [facility] 1210 [facility] [address] [place] [address] Consuelo Hobbs PA-C [address] [phone] Scheduled Orders Name Type Priority Associated Diagnoses Orde r Schedule Vitamin D, 25-Hydroxy - [facility] Routine Carcinoid tumor of ileum, unspecified whether malignant Expected: 09/22/2021 (Approximate), Expires: 12/22/2021 documented as of this encounter Visit Diagnoses Diagnosis Carcinoid tumor of ileum, unspecified whether malignant (HCC)- Primary documented in this encounter Care Teams Visual Arts Teacher Relationship Specialty Start Date End Date Consuelo Hobbs PA-C [address] [place] [address] PCP - General 05/01/19 Madi Sharp MD [address] [place] [address] Gastroenterology 10/02/19 documented as of this encounter
--- OUTSIDE RECORDS SUMMARY | 2023-10-29 17:47 | XMS_ITS | Encounter Summary ---
Author Organization [facility] Address [address] [place] [address] Care Team Providers Care Dungeon Master Name Role Phone Consuelo Hobbs PA-C Primary Care Provider Madi Sharp MD Unavailable [phone] Encounter Details Date Type Department Care Team (Latest Contact Info) Description 03/15/2022 Travel Social History Tobacco Use Types Packs/Day [...] Description 11/13/2023 7:45 AM EDT Office Visit [facility] Cancer [place] Medical Oncology at [address] [phone] Ricci Carter MD [address] [place] [address] 11/13/2023 8:30 AM EDT Infusion [facility] Cancer [place] at [facility]fusion Center [address] [phone] Ricci Carter MD [address] [place] [address] Keiko Hallman MD 80 [facility] [place] [address] 11/20/2023 11:00 AM EDT Appointment [facility] Radiology Shay Mammography [address] [place] [phone] Ricci Carter MD [address] [place] [address] 11/20/2023 11:30 AM EDT Appointment [facility] Radiology Shay Mammography [address] [place] [phone] Ricci Carter MD [address] [place] [address] 03/05/2024 11:00 AM EST Consult [facility] Cardiology [place] [address] [facility] [address] [place] [phone] Ricci Carter MD [address] [place] [address] Jamil Ralph MD [address] [facility] [address] [place] [address] 05/30/2024 9:00 AM EST Office Visit [facility] Department of Internal Medicine [facility] 1210 [facility] [address] [place], [place] [phone] Consuelo Hobbs PA-C 1210 [facility] 109 [place], [place] [phone] documented as of this encounter Visit Diagnoses Not on filedocumented in this encounter Care Teams Dungeon Master Relationship Specialty Start Date End Date Consuelo Hobbs PA-C [address] [phone] PCP - General 05/01/19 Madi Sharp MD [address] [place] [address] Gastroenterology 10/02/19 documented as of this encounter
--- OUTSIDE RECORDS SUMMARY | 2023-10-29 17:47 | XMS_ITS | Encounter Summary ---
Author Organization [facility] Address [address] [place] [address] Care Team Providers Care Special Assets Officer Name Role Phone Consuelo Hobbs PA-C Primary Care Provider Madi Sharp MD Unavailable [phone] Reason for Visit * Reason Onset Date Comments Medication Refill 01/03/2022 Encounter Details Date Type Department Care Team (Late st Contact Info) Description 01/03/2022 Refill [facility] Cancer [place] Medical Oncology at [address] [phone] Ricci Carter MD [address] [place] [address] Carcinoid tumor of ileum Social History Tobacco [...] confirmed or suspected to have Coronavirus/COVID-19? Yes 12/24/2021 8:42 AM EDT documented as of this encounter Plan of Treatment Upcoming Encounters Date Type Department Care Team (Late st Contact Info) Description 11/13/2023 7:45 AM EDT Office Visit [facility] Medical Oncology at [address] [phone] Ricci Carter MD [address] [place], [place] [phone] 11/13/2023 8:30 AM EDT Infusion [facility] Cancer [place] at [facility] Out[facility] Infusion Center [address] [phone] Ricci Carter MD [address] [place], [place] [phone] Keiko Hallman MD 80 [facility] [place] [address] 11/20/2023 11:00 AM EDT Appointment [facility] [place] [facility] Radiology Shay Mammography [address] [place] [address] [phone] Ricci Carter MD [address] [place], [place] [phone] 11/20/2023 11:30 AM EDT Appointment [facility] Radiology Shay Mammography [address] [place] [address] [phone] Ricci Carter MD [address] [place], [place] [phone] 03/05/2024 11:00 AM EST Consult [facility] Cardiology [address] [place] [address] [phone] Ricci Carter MD [address] [place] [address] Jamil Ralph MD [address] [place] [address] 05/30/2024 9:00 AM EST Office Visit [facility] Department of Internal Medicine [facility] 1210 [facility] [address] [place] [address] Consuelo Hobbs PA-C 1210 [facility] 109 [place] [address] documented as of this encounter Visit Diagnoses Diagnosis Carcinoid tumor of ileum (HCC) documented in this encounter Care Teams Special Assets Officer Relationship Specialty Start Date End Date Consuelo Hobbs PA-C [address] [place] [address] 109 [place] [address] PCP - General 05/01/19 Madi Sharp MD [address] [place] [address] Gastroenterology 10/02/19 documented as of this encounter
--- OUTSIDE RECORDS SUMMARY | 2023-10-29 17:47 | XMS_ITS | Encounter Summary ---
Author Organization [facility] Address [address] [place] [address] Care Team Providers Care Auto Repair Shop Manager Name Role Phone Consuelo Hobbs PA-C Primary Care Provider Madi Sharp MD Unavailable [phone] Encounter Details Date Type Department Care Team ([facility] st Contact Info) Description 03/17/2022 Orders Only [facility] Cancer [place] Medical Oncology at [facility] [address] [place] [phone] Ricci Carter MD [address] [place] [address] Vitamin D deficiency Social History Tobacco Use [...] Description 11/13/2023 7:45 AM EDT Office Visit [facility] Medical Oncology at [address] [phone] Ricci Carter MD [address] [place], [place] [phone] 11/13/2023 8:30 AM EDT Infusion [facility] Cancer [place] at [facility] Outpatient Infusion Center [address] [phone] Ricci Carter MD [address] [place], [place] [phone] Keiko Hallman MD 80 [facility] [place] [address] 11/20/2023 11:00 AM EDT Appointment [facility] Radiology Shay Mammography [address] [place] [address] [phone] Ricci Carter MD [address] [place], [place] [phone] 11/20/2023 11:30 AM EDT Appointment [facility] Radiology Shay Mammography [address] [place] [address] [phone] Ricci Carter MD [address] [place], [place] [phone] 03/05/2024 11:00 AM EST Consult [facility] Cardiology [address] [place] [phone] Ricci Carter MD [address] [place] [address] Jamil Ralph MD [address] [place] [address] 05/30/2024 9:00 AM EST Office Visit [facility] Department of Internal Medicine [facility] 1210 [facility] 109 [place] [address] Consuelo Hobbs PA-C 1210 [facility] 109 [place] [address] documented as of this encounter Visit Diagnoses Diagnosis Vitamin D deficiency documented in this encounter Care Teams Auto Repair Shop Manager Relationship Specialty Start Date End Date Consuelo Hobbs PA-C [address] [place] [address] 109 [place] [address] PCP - General 05/01/19 Madi Sharp MD [address] [place] [address] Gastroenterology 10/02/19 documented as of this encounter
--- OUTSIDE RECORDS SUMMARY | 2023-10-29 17:47 | XMS_ITS | Encounter Summary ---
Author Organization [facility] Address [address] [place] [address] Care Team Providers Care Lever Miller Name Role Phone Consuelo Hobbs PA-C Primary Care Provider Madi Sharp MD Unavailable [phone] Encounter Details Date Type Department Care Team (Latest Contact Info) Description 11/05/2021 Travel Social History Tobacco Use Types Packs/Day [...] suspected to have Coronavirus/COVID-19? No / Unsure 11/05/2021 8:03 AM EDT documented as of this encounter Plan of Treatment Upcoming Encounters Date Type Department Care Team (Late st Contact Info) Description 11/13/2023 7:45 AM EDT Office Visit [facility] Cancer [place] Medical Oncology at [address] [phone] Ricci Carter MD [address] [place] [address] 11/13/2023 8:30 AM EDT Infusion [facility] Cancer [place] at [facility] Outpatient Infusion Center [place] [address] [place] [phone] Ricci Carter MD [address] [place] [address] Keiko Hallman MD 80 [facility] [place] [address] 11/20/2023 11:00 AM EDT Appointment [facility] Radiology Shay Mammography 35 [place] [phone] Ricci Carter MD [address] [place] [address] 11/20/2023 11:30 AM EDT Appointment [facility] Radiology Shay Mammography 35 [place] [phone] Ricci Carter MD [address] [place] [address] 03/05/2024 11:00 AM EST Consult [facility] Cardiology [place] [address] [facility] [address] [place] [phone] Ricci Carter MD [address] [place] [address] Jamil Ralph MD [address] [place] [facility] [address] [place] [address] 05/30/2024 9:00 AM EST Office Visit [facility] Department of Internal Medicine [facility] [address] [phone] Consuelo Hobbs PA-C [address] [phone] documented as of this encounter Visit Diagnoses Not on filedocumented in this encounter Care Teams Lever Miller Relationship Specialty Start Date End Date Consuelo Hobbs PA-C [address] [phone] PCP - General 05/01/19 Madi Sharp MD [address] [place] [address] Gastroenterology 10/02/19 documented as of this encounter
--- OUTSIDE RECORDS SUMMARY | 2023-10-29 17:47 | XMS_ITS | Encounter Summary ---
Author Organization [facility] Address [address] [place] [address] Care Team Providers Care Pet Walker Name Role Phone Consuelo Hobbs PA-C Primary Care Provider Madi Sharp MD Unavailable [phone] Encounter Details Date Type Department Care Team (Late st Contact Info) Description 12/22/2021 Orders Only [facility] Cancer [place] Medical Oncology at [address] [phone] Niki Giron, MAYA [address] [place] [address] Diarrhea, unspecified type; Carcinoid tumor of ileum [...] Description 11/13/2023 7:45 AM EDT Office Visit [facility] Medical Oncology at [address] [phone] Ricci Carter MD [address] [place] [address] 11/13/2023 8:30 AM EDT Infusion [facility] Cancer [place] at [facility] Outpatient Infusion Center [address] [phone] Ricci Carter MD [address] [place], [place] [phone] Keiko Hallman MD 80 [facility] [place] [address] 11/20/2023 11:00 AM EDT Appointment [facility] Radiology Shay Mammography [address] [place] [address] [phone] Ricci Carter MD [address] [place], [place] [phone] 11/20/2023 11:30 AM EDT Appointment [facility] Radiology Shay Mammography [address] [place] [address] [phone] iRcci Carter MD [address] [place], [place] [phone] 03/05/2024 11:00 AM EST Consult [facility]iology [address] [place] [phone] Ricci Carter MD [address] [place] [address] Jamil Ralph MD [address] [place] [facility] [address] [place] [address] 05/30/2024 9:00 AM EST Office Visit [facility] Department of Internal Medicine [facility] 1210 [facility] 109 [place] [address] Consuelo Hobbs PA-C [address] [address] documented as of this encounter Visit Diagnoses Diagnosis Diarrhea, unspecified type Carcinoid tumor of ileum (HCC) documented in this encounter Care Teams Pet Walker Relationship Specialty Start Date End Date Consuelo Hobbs PA-C [address] [place] [address] 109 [place] [address] PCP - General 05/01/19 Madi Sharp MD [address] [place] [address] Gastroenterology 10/02/19 documented as of this encounter
--- OUTSIDE RECORDS SUMMARY | 2023-10-29 17:47 | XMS_ITS | Encounter Summary ---
Author Organization [facility] Address [address] [place] [address] Care Team Providers Care Painter Ski Edge Name Role Phone Consuelo Hobbs PA-C Primary Care Provider Madi Sharp MD Unavailable [phone] Reason for Visit * Reason Comments Labs Only Encounter Details Date Type Department Care Team (Late st Contact Info) Description 10/15/2021 9:00 AM EDT Lab [facility] Cancer [place] Medical Oncology at [address] [phone] Ricci Carter MD [address] [place] [address] Carcinoid tumor of ileum, unspecified whether malignant [...] suspected to have Coronavirus/COVID-19? No / Unsure 10/15/2021 9:56 AM EDT documented as of this encounter Plan of Treatment Upcoming Encounters Date Type Department Care Team (Late st Contact Info) Description 11/13/2023 7:45 AM EDT Office Visit [facility] Medical Oncology at [address] [phone] Ricci Carter MD [address] [place] [address] 11/13/2023 8:30 AM EDT Infusion [facility] Cancer [place] at [facility] Outpatient Infusion Center [address] [phone] Ricci Carter MD [address] [place], [place] [phone] Keiko Hallman MD 80 [facility] [place] [address] 11/20/2023 11:00 AM EDT Appointment [facility] Radiology Shay Mammography [address] [place] [phone] Ricci Carter MD [address] [place], [place] [address] 11/20/2023 11:30 AM EDT Appointment [facility] Radiology Shay Mammography [address] [place] [phone] Ricci Carter MD [address] [place], [place] [phone] 03/05/2024 11:00 AM EST Consult [facility] Cardiology [address] [place] [phone] Ricci Carter MD [address] [place] [address] Jamil Ralph MD [address] [facility] [address] [place] [address] 05/30/2024 9:00 AM EST Office Visit [facility] Department of Internal [facility] 1210 [facility] 109 [place] [address] Consuelo Hobbs PA-C [address] [address] Scheduled Orders Name Type Priority Associated Diagnoses Orde r Schedule Vitamin D, 25-Hydroxy Lab Routine Carcinoid tumor of ileum, unspecified whether malignant Ordered: 10/15/2021 documented as of this encounter Visit Diagnoses Diagnosis Carcinoid tumor of ileum, unspecified whether malignant (HCC)- Primary documented in this encounter Care Teams Painter Ski Edge Relationship Specialty Start Date End Date Consuelo Hobbs PA-C [address] [place] [address] PCP - General 05/01/19 Madi Sharp MD [address] [place] [address] 1000 [place] [address] Gastroenterology 10/02/19 documented as of this encounter
--- OUTSIDE RECORDS SUMMARY | 2023-10-29 17:47 | XMS_ITS | Encounter Summary ---
Author Organization [facility] Address [address] [place] [address] Care Team Providers Care Cytology Laboratory Manager Name Role Phone Consuelo Hobbs PA-C Primary Care Provider Madi Sharp MD Unavailable [phone] Encounter Details Date Type Department Care Team (Latest Contact Info) Description 01/14/2022 Travel Social History Tobacco Use Types Packs/Day [...] Office Visit [facility] Cancer [place] Medical Oncology at [address] [phone] Ricci Carter MD [address] [place] [address] 11/13/2023 8:30 AM EDT Infusion [facility] Cancer [place] at [facility] Outpatient Infusion Center [place] [address] [place] [phone] Ricci Carter MD [address] [place] [address] Keiko Hallman MD 80 [facility] [place] [address] 11/20/2023 11:00 AM EDT Appointment [facility] Radiology Shay Mammography 35 [place] [phone] Ricci Carter MD [address] [place] [address] 11/20/2023 11:30 AM EDT Appointment [facility] Radiology Shay Mammography [address] [place] [phone] Ricci Carter MD [address] [place] [address] 03/05/2024 11:00 AM EST Consult [facility] Cardiology [place] 376 [facility] [address] [place] [phone] Ricci Carter MD [address] [place] [address] Jamil Ralph MD [address] [place] [facility] [address] [place] [address] 05/30/2024 9:00 AM EST Office Visit [facility] Department of Internal Medicine [facility] [address] [phone] Consuelo Hobbs PA-C [address] [phone] documented as of this encounter Visit Diagnoses Not on filedocumented in this encounter Care Teams Cytology Laboratory Manager Relationship Specialty Start Date End Date Consuelo Hobbs PA-C [address] [phone] PCP - General 05/01/19 Madi Sharp MD [address] [place] [address] Gastroenterology 10/02/19 documented as of this encounter
--- OUTSIDE RECORDS SUMMARY | 2023-10-29 17:47 | XMS_ITS | Encounter Summary ---
Author Organization [facility] Address [address] [place] [address] Care Team Providers Care Project Control Analyst Name Role Phone Consuelo Hobbs PA-C Primary Care Provider Madi Sharp MD Unavailable [phone] Reason for Visit * Reason Comments COVID-19 Triage * Infectious Disease (Routine) - Closed Specialty Diagnoses / Procedures Referred By Contbalbir t Referred To Contact Infectious Diseases Diagnoses COVID-19 Chaparro Mckeon MD [address] [place] [address] Mg Inf Ds Triage Em [address] [place] [address] Referral ID Status Reason Start Date Expiration Date V isits Requested Visits Authorized [id number] Closed Consult 11/12/2021 11/13/2022 1 1 Encounter Details Date Type Department Care Team (Late st Contact Info) Description 11/15/2021 3:30 PM EDT Telemedicine [facility] Infectious Disease Covid Triage [address] [place] [address] Chaparro Mckeon MD [address] [place] [address] Krys Ramos PA-C [address] [place] [address] Lab test positive for detection of COVID-19 virus (Primary Dx); Cough; Myalgia Social History Tobacco Use Types Packs/Day Years [...] PM EDT documented as of this encounter Patient Instructions * Patient Instructions* Krys Ramos PA-C - 11/15/2021 4:22 PM EDT Patient is a doing progressively better. Was prescribed Paxilovid however would like to continue with supportive care only as her symptoms are improving. documented in this encounter Progress Notes * Krys Ramos PA-C - 11/15/2021 4:19 PM EDT //-yoCOVID-19 Telehealth Visit Rody Sotelo, 1970 CC: Evaluate for monoclonal antibody infusion to COVID-19 HPI: Rody Sotelo is a female with a history of: Symptoms: Cough;Sor/e/ throat;Runny nose Date of symptom onset: 11/09/21 Patient had a COVID-19 test performed on: 11/11/21, the result of the patients COVID-19 test was positive Allergies Allergen Reactions ??? Levaquin [Levofloxacin] Myalgia/Myositis/Arthralgia/Arthritis ??? Cefaclor GI Intolerance/Nausea/Vomiting ??? Erythromycin GI Intolerance/Nausea/Vomiting The patient has did not meet criteria for monoclonal antibody-infusion for COVID-19. Patient is being seen today for a visit via telehealth technology due to the current COVID-19 (Coronavirus) pandemic. The patient's identity was confirmed by Name and Date of . The patient reported the following physical address during the telehealth visit: [address] [place] [phone] Telehealth location: Patient is located within a home setting [address] [place] [phone]. In the event visit is disconnected, the patient telephone contact: [phone] Patient verbally consented to participate in a virtual health visit today and understands that theymay or may not be required to share in the cost of this service. All standard copays, coinsurance & deductibles may be waived for this visit. Check with your insurance carrier for more detail. The patient was told that if at any point they or the provider feel the telephone visit is not adequate they can opt for scheduling a face to face visit. Verbal consent for this telephone visit was obtained after treatment methods and limitations of telephone encounters were discussed with the patient. Verbal consent was also obtained to disclose the associated medical record to their primary care physician. This virtual health visit is a private interaction. If at any time someone enters the room that youare located in, you can ask me to pause the session while you relocate to a private location. If there is anyone else present with you now, can you please let me know and if you consent to havethis person present during our visit. Additional persons present during virtual health visit: none In the event the connection was lost during the visit, the patient was instructed to call back. Technical quality of phone visit:good. documented in this encounter Plan of Treatment Upcoming Encounters Date Type Department Care Team (Late st Contact Info) Description 11/13/2023 7:45 AM EDT Office Visit [facility] [place] Medical Oncology at [address] [phone] Ricci Carter MD [address] [place] [address] 11/13/2023 8:30 AM EDT Infusion [facility] Cancer [place] at [facility] Out[facility] Infusion Center [address] [phone] Ricci Carter MD [address] [place] [address] Keiko Hallman MD 80 [facility] [place] [address] 11/20/2023 11:00 AM EDT Appointment [facility] Radiology [facility] [address] [place] [phone] Ricci Carter MD [address] [place] [address] 11/20/2023 11:30 AM EDT Appointment [facility] Radiology [facility] [address] [place] [phone] Ricci Carter MD [address] [place], [place] [phone] 03/05/2024 11:00 AM EST Consult [facility] Cardiology [place] [address] [facility] [address] [place] [phone] Ricci Carter MD [address] [place] [address] Jamil Ralph MD [address] [place] [facility] [address] [place], [place] [phone] 05/30/2024 9:00 AM EST Office Visit [facility] [address] [phone] Consuelo Hobbs PA-C [address] [phone] Scheduled Referrals Name Type Priority Associated Diagnoses Order Schedule Amb Referral to COVID-19 Ambulatory Triage Outpatient Referral Routine COVID-19 Ordered: 11/12/2021 documented as of this encounter Visit Diagnoses Diagnosis Lab test positive for detection of COVID-19 virus- Primary Cough Myalgia Unspecified myalgia and myositis documented in this encounter Care Teams Project Control Analyst Relationship Specialty Start Date End Date Consuelo Hobbs PA-C [address] [place] [phone] PCP - General 05/01/19 Madi Sharp MD [address] [address] Gastroenterology 10/02/19 documented as of this encounter
--- OUTSIDE RECORDS SUMMARY | 2023-10-29 17:47 | XMS_ITS | Encounter Summary ---
Author Organization [facility] Address [address] [place] [address] Care Team Providers Care Blasting Clay Miner Name Role Phone Consuelo Hobbs PA-C Primary Care Provider Madi Sharp MD Unavailable [phone] Encounter Details Date Type Department Care Team (Late st Contact Info) Description 02/07/2022 Orders Only [facility] Cancer [place] Medical Oncology at [address] [phone] Ricci Carter MD [address] [place] [address] Social History Tobacco Use Types Packs/Day Years [...] Description 11/13/2023 7:45 AM EDT Office Visit [facility] Medical Oncology at [address] [phone] Ricci Carter MD [address] [place], [place] [phone] 11/13/2023 8:30 AM EDT Infusion [facility] Cancer [place] at [facility] Outpatient Infusion Center [address] [phone] Ricci Carter MD [address] [place], [place] [phone] Keiko Hallman MD 80 [facility] [place] [address] 11/20/2023 11:00 AM EDT Appointment [facility] Radiology [facility] [address] [place] [phone] Ricci Carter MD [address] [place] [place], [place] [phone] 11/20/2023 11:30 AM EDT Appointment [facility] Radiology [facility] [address] [place] [phone] Ricci Carter MD [address] [place], [place] [phone] 03/05/2024 11:00 AM EST Consult [facility] Cardiology [address] [place] [phone] Ricci Carter MD [address] [place] [address] Jamil Ralph MD [address] [place] [facility] [address] [place] [address] 05/30/2024 9:00 AM EST Office Visit [facility] Department of Internal Medicine [facility] 1210 [facility] [address] [place] [address] Consuelo Hobbs PA-C 1210 [facility] [address] [place] [address] documented as of this encounter Visit Diagnoses Not on filedocumented in this encounter Care Teams Blasting Clay Miner Relationship Specialty Start Date End Date Consuelo Hobbs PA-C [address] [place] [address] [address] [place] [address] PCP - General 05/01/19 Madi Sharp MD [address] [place] [address] Gastroenterology 10/02/19 documented as of this encounter
--- OUTSIDE RECORDS SUMMARY | 2023-10-29 17:47 | XMS_ITS | Encounter Summary ---
Author Organization [facility] Address [address] [place] [address] Care Team Providers Care Change Control Specialist Name Role Phone Consuelo Hobbs PA-C Primary Care Provider Madi Sharp MD Unavailable [phone] Encounter Details Date Type Department Care Team (Latest Contact Info) Description 12/24/2021 Travel Social History Tobacco Use Types Packs/Day [...] EDT Office Visit [facility] Cancer [place] Medical Oncology at [address] [phone] Ricci Carter MD [address] [place] [address] 11/13/2023 8:30 AM EDT Infusion [facility] Cancer [place] at [facility] Outpatient Infusion Center [address] [phone] Ricci Carter MD [address] [place], [place] [phone] Keiko Hallman MD 80 [facility] [place] [address] 11/20/2023 11:00 AM EDT Appointment [facility] Radiology [facility] 35 [place] [phone] Ricci Carter MD [address] [place] [address] 11/20/2023 11:30 AM EDT Appointment [facility] Radiology [facility] 35 [place] [phone] Ricci Carter MD [address] [place] [address] 03/05/2024 11:00 AM EST Consult [facility] Cardiology [place] [address] [facility] [address] [place] [phone] Ricci Carter MD [address] [place] [address] Jamil Ralph MD [address] [place] [facility] [address] [place] [address] 05/30/2024 9:00 AM EST Office Visit [facility] Department of Internal Medicine [facility] 1210 [facility] [address] [place] [phone] Consuelo Hobbs PA-C [address] [facility] 109 [place] [address] documented as of this encounter Visit Diagnoses Not on filedocumented in this encounter Care Teams Change Control Specialist Relationship Specialty Start Date End Date Consuelo Hobbs PA-C [address] [phone] PCP - General 05/01/19 Madi Sharp MD [address] [place] [address] Gastroenterology 10/02/19 documented as of this encounter
--- OUTSIDE RECORDS SUMMARY | 2023-10-29 17:47 | XMS_ITS | Encounter Summary ---
Author Organization [facility] Address [address] [place] [address] Care Team Providers Care Strickler Attendant Name Role Phone Consuelo Hobbs PA-C Primary Care Provider Madi Sharp MD Unavailable [phone] Reason for Visit * Reason Comments Medication Refill Encounter Details Date Type Department Care Team (Late st Contact Info) Description 12/15/2021 Refill [facility] Cancer [place] Medical Oncology at [address] [phone] Ricci Carter MD [address] [place] [address] Vitamin D deficiency (Primary Dx) Social History [...] Description 11/13/2023 7:45 AM EDT Office Visit [facility] Medical Oncology at [address] [phone] Ricci Carter MD [address] [place], [place] [phone] 11/13/2023 8:30 AM EDT Infusion [facility] Cancer [place] at [facility] Outpatient Infusion Center [address] [phone] Ricci Carter MD [address] [place], [place] [phone] Keiko Hallman MD 80 [facility] [place] [address] 11/20/2023 11:00 AM EDT Appointment [facility]iology [facility] [address] [place] [phone] Ricci Carter MD [address] [place], [place] [phone] 11/20/2023 11:30 AM EDT Appointment [facility]iology [facility] [address] [place] [address] [phone] Ricci Carter MD [address] [place], [place] [phone] 03/05/2024 11:00 AM EST Consult [facility] Cardiology [address] [phone] Ricci Carter MD [address] [place] [address] Jamil Ralph MD [address] [place] [facility] [address] [place] [address] 05/30/2024 9:00 AM EST Office Visit [facility] Department of Internal Medicine [facility] 1210 [facility] 109 [place], [place] [phone] Consuelo Hobbs PA-C [address] [address] documented as of this encounter Visit Diagnoses Diagnosis Vitamin D deficiency- Primary documented in this encounter Care Teams Strickler Attendant Relationship Specialty Start Date End Date Consuelo Hobbs PA-C [address] [place] [address] PCP - General 05/01/19 Madi Sharp MD [address] [place] [address] Gastroenterology 10/02/19 documented as of this encounter
--- OUTSIDE RECORDS SUMMARY | 2023-10-29 17:47 | XMS_ITS | Encounter Summary ---
Author Organization [facility] Address [address] [place] [address] Care Team Providers Care Glass Cutter Hand Name Role Phone Consuelo Hobbs PA-C Primary Care Provider Madi Sharp MD Unavailable [phone] Reason for Visit * Episode Based Medications (Routine) - Authorized Specialty Diagnoses / Procedures Referred By Contac t Referred To Contact Diagnoses Carcinoid tumor of ileum, unspecified whether malignant (HCC) Keiko Hallman MD 80 [facility] [place] [address] Med [address] [address] Referral ID Status Reason Start Date Expiration Date V isits Requested Visits Authorized [id number] Authorized 04/29/2022 11/27/2023 5 2 Encounter Details Date Type Department Care Team (Late st Contact Info) Description 12/24/2021 9:00 AM EDT Infusion [facility] Cancer [place] at [facility] Outpatient Infusion Center [address] [phone] Ricci Carter MD [address] [place] [address] Keiko Hallman MD [address] [facility] [place] [address] Alissa Sánchez, MAYA [address] [facility] [address] [place] [address] Carcinoid tumor of ileum, unspecified whether malignant [...] Sign Reading Time Taken Comments Blood Pressure 145/78 12/24/2021 8:51 AM EDT Pulse 79 12/24/2021 8:51 AM EDT Temperature 36.4 ??C (97.6 ??F) 12/24/2021 8:51 AM ED T Respiratory Rate 16 12/24/2021 8:51 AM EDT Oxygen Saturation 98% 12/24/2021 8:51 AM EDT Inhaled Oxygen Concentration - - Weight 68.5 kg (151 lb 1.6 oz) 12/24/2021 8:51 A M EDT Height - - Body Mass Index 26.77 03/26/2021 12:49 PM EST documented in this encounter Plan of Treatment Upcoming Encounters Date Type Department Care Team (Late st Contact Info) Description 11/13/2023 7:45 AM EDT Office Visit [facility] Cancer [place] Medical Oncology at [address] [phone] Ricci Carter MD [address] [place] [address] 11/13/2023 8:30 AM EDT Infusion [facility] Cancer [place] at [facility] Outpatient Infusion Center [address] [phone] Ricci Carter MD [address] [place] [address] Keiko Hallman MD 80 [facility] [place] [address] 11/20/2023 11:00 AM EDT Appointment [facility] Radiology [facility] 35 [place] [phone] Ricci Carter MD [address] [place] [address] 11/20/2023 11:30 AM EDT Appointment [facility] Radiology [facility] 35 [place] [phone] Ricci Carter MD [address] [place] [address] 03/05/2024 11:00 AM EST Consult [facility] Cardiology [place] [address] [facility] [address] [place] [phone] Ricci Carter MD [address] [place] [address] Jamil Ralph MD [address] [place] [address] [place], [place] [phone] 05/30/2024 9:00 AM EST Office Visit [facility] [address] [phone] Consuelo Hobbs PA-C [address] [phone] documented as of this encounter Visit Diagnoses Diagnosis Carcinoid tumor of ileum, unspecified whether malignant (HCC)- Primary documented in this encounter Administered Medications Inactive Administered Medications - up to 1 most recent administrations Medication Order MAR Action Action Date Dose Rate Site octreotide (SandoSTATIN LAR) IM injection 40 mg 40 mg, Intramuscular, Once, On Mon12/24/21 at 0930, For 1 dose, Administer IM intragluteal (avoid deltoid administration). For intraMUSCULAR use ONLY. Must be administered immediately after mixing. Given 12/24/2021 8:52 AM EDT 40 mg Other (See Comments) documented in this encounter Care Teams Glass Cutter Hand Relationship Specialty Start Date End Date Consuelo Hobbs PA-C [address] [phone] PCP - General 05/01/19 Madi Sharp MD [address] [place] [address] Gastroenterology 10/02/19 documented as of this encounter
--- OUTSIDE RECORDS SUMMARY | 2023-10-29 17:47 | XMS_ITS | Encounter Summary ---
Author Organization [facility] Address [address] [place] [address] Care Team Providers Care Injection Molding Engineer Name Role Phone Consuelo Hobbs PA-C Primary Care Provider Madi Sharp MD Unavailable [phone] Encounter Details Date Type Department Care Team (Latest Contact Info) Description 12/14/2021 Travel Social History Tobacco Use Types Packs/Day [...] EDT Office Visit [facility] Cancer [place] Medical Oncology at [address] [phone] Ricci Carter MD [address] [place] [address] 11/13/2023 8:30 AM EDT Infusion [facility] Cancer [place] at [facility] Outpatient Infusion Center [place] [address] [place] [address] Ricci Carter MD [address] [place] [address] Keiko Hallman MD 80 [facility] [place] [address] 11/20/2023 11:00 AM EDT Appointment [facility] Radiology [facility] 35 [place] [phone] Ricci Carter MD [address] [place] [address] 11/20/2023 11:30 AM EDT Appointment [facility] Radiology [facility] 35 [place] [phone] Ricci Carter MD [address] [place] [address] 03/05/2024 11:00 AM EST Consult [facility] Cardiology [place] [address] [facility] [address] [place] [phone] Ricci Carter MD [address] [place] [address] Jamil Ralph MD [address] [place] [facility] [address] [place] [address] 05/30/2024 9:00 AM EST Office Visit [facility] Department of Internal Medicine [facility] [address] [phone] Consuelo Hobbs PA-C [address] [phone] documented as of this encounter Visit Diagnoses Not on filedocumented in this encounter Care Teams Injection Molding Engineer Relationship Specialty Start Date End Date Consuelo Hobbs PA-C [address] [phone] PCP - General 05/01/19 Madi Sharp MD [address] [place] [address] Gastroenterology 10/02/19 documented as of this encounter
--- OUTSIDE RECORDS SUMMARY | 2023-10-29 17:47 | XMS_ITS | Encounter Summary ---
Author Organization [facility] Address [address] [place] [address] Care Team Providers Care International Guest Coordinator Name Role Phone Consuelo Hobbs PA-C Primary Care Provider Madi Sharp MD Unavailable [phone] Reason for Referral * Infectious Disease (Routine) - Closed Specialty Diagnoses / Procedures Referred By Contac t Referred To Contact Infectious Diseases Diagnoses COVID-19 Chaparro Mckeon MD [address] [place] [address] Mg Inf Ds Triage Em [address] [place] [address] Referral ID Status Reason Start Date Expiration Date V isits Requested Visits Authorized [id number] Closed Consult 11/12/2021 11/13/2022 1 1 Question Answer Is referral for a COVID positive patient? Yes What kind of positive test is presented? Rapid/Lab PCR Test - OK TO PROCEED Encounter Details Date Type Department Care Team (Late st Contact Info) Description 11/12/2021 Orders Only [facility] [address] [phone] Chaparro Mckeon MD [address] [place] [address] COVID-19 (Primary Dx) Social History Tobacco Use [...] PM EDT documented as of this encounter Progress Notes * Chaparro Mckeon MD - 11/12/2021 3:22 PM EDT Patient tested positive for COVID-19 via PCR test. I called her and discussed results with her today. Also discussed CDC guidelines for isolation/quarantine. documented in this encounter Plan of Treatment Upcoming Encounters Date Type Department Care Team (Late st Contact Info) Description 11/13/2023 7:45 AM EDT Office Visit [facility] Medical Oncology at [address] [phone] Ricci Carter MD [address] [place] [address] 11/13/2023 8:30 AM EDT Infusion [facility] Cancer [place] at [facility] Outpatient Infusion Center [address] [phone] Ricci Carter MD [address] [place] [address] Keiko Hallman MD 80 [facility] [place] [address] 11/20/2023 11:00 AM EDT Appointment [facility] Radiology [place] [facility] [address] [place] [phone] Ricci Carter MD [address] [place], [place] [phone] 11/20/2023 11:30 AM EDT Appointment [facility] Radiology [place] [facility] [address] [place] [phone] Ricci Carter MD [address] [place], [place] [phone] 03/05/2024 11:00 AM EST Consult [facility] Cardiology [address] [place] [phone] Ricci Carter MD [address] [place], [place] [phone] Jamil Ralph MD [address] [place] [facility] [address] [place], [place] [phone] 05/30/2024 9:00 AM EST Office Visit [facility] Department of Internal Medicine [facility] 1210 [facility] [address] [place], [place] [phone] Consuelo Hobbs PA-C 1210 [facility] [address] [place] [address] Scheduled Referrals Name Type Priority Associated Diagnoses Order Schedule Amb Referral to COVID-19 Ambulatory Triage Outpatient Referral Routine COVID-19 Ordered: 11/12/2021 documented as of this encounter Visit Diagnoses Diagnosis COVID-19- Primary documented in this encounter Care Teams International Guest Coordinator Relationship Specialty Start Date End Date Consuelo Hobbs PA-C [address] [address] PCP - General 05/01/19 Madi Sharp MD [address] [address] Gastroenterology 10/02/19 documented as of this encounter
--- OUTSIDE RECORDS SUMMARY | 2023-10-29 17:47 | XMS_ITS | Encounter Summary ---
Author Organization [facility] Address [address] [place] [address] Care Team Providers Care Child Care Giver Name Role Phone Consuelo Hobbs PA-C Primary Care Provider Madi Sharp MD Unavailable [phone] Encounter Details Date Type Department Care Team (Latest Contact Info) Description 10/15/2021 Travel Social History Tobacco Use Types Packs/Day [...] Description 11/13/2023 7:45 AM EDT Office Visit [facility] [place] Medical Oncology at [address] [phone] Ricci Carter MD [address] [place] [address] 11/13/2023 8:30 AM EDT Infusion [facility] [place] at [facility]fusion [facility] [place] [address] [place] [address] Ricci Carter MD [address] [place] [address] Keiko Hallman MD 80 [facility] [place] [address] 11/20/2023 11:[address] [facility] Radiology [facility] [address] [place] [phone] Ricci Carter MD [address] [place] [address] 11/20/2023 11:[address] [facility] Radiology [facility] Mammography [address] [place] [phone] Ricci Carter MD [address] [place] [address] 03/05/2024 11:00 AM EST Consult [facility] Cardiology [place] [address] [facility] [address] [place] [phone] Ricci Carter MD [address] [place] [address] Jamil Ralph MD [address] [place] [facility] [address] [place] [address] 05/30/2024 9:00 AM EST Office Visit [facility] Physicians Department of Internal Medicine [facility] [address] [phone] Consuelo Hobbs PA-C [address] [phone] documented as of this encounter Visit Diagnoses Not on filedocumented in this encounter Care Teams Child Care Giver Relationship Specialty Start Date End Date Consuelo Hobbs PA-C [address] [phone] PCP - General 05/01/19 Madi Sharp MD [address] [place] [address] Gastroenterology 10/02/19 documented as of this encounter
--- OUTSIDE RECORDS SUMMARY | 2023-10-29 17:47 | XMS_ITS | Encounter Summary ---
Author Organization [facility] Address [address] [place] [address] Care Team Providers Care Doctor Chiropractic Name Role Phone Consuelo Hobbs PA-C Primary Care Provider Madi Sharp MD Unavailable [phone] Reason for Visit * Episode Based Medications (Routine) - Authorized Specialty Diagnoses / Procedures Referred By Contac t Referred To Contact Diagnoses Carcinoid tumor of ileum, unspecified whether malignant (HCC) Keiko Hallman MD 80 [facility] [place] [address] Med On[address] Ci [address] [address] Referral ID Status Reason Start Date Expiration Date V isits Requested Visits Authorized [id number] Authorized 04/29/2022 11/27/2023 5 2 Encounter Details Date Type Department Care Team (Late st Contact Info) Description 10/15/2021 9:00 AM EDT Infusion [facility] [place] [facility] Infusion Center [address] [phone] Ricci Carter MD [address] [place] [address] Keiko Hallman MD 80 [facility] [place] [address] Sienna Alaniz RN 80 [place] [address] Carcinoid tumor of ileum, unspecified whether malignant [...] Sign Reading Time Taken Comments Blood Pressure 137/77 10/15/2021 10:08 AM EDT Pulse 85 10/15/2021 10:08 AM EDT Temperature 36.1 ??C (97 ??F) 10/15/2021 10:08 AM EDT Respiratory Rate 16 10/15/2021 10:08 AM EDT Oxygen Saturation 99% 10/15/2021 10:08 AM EDT Inhaled Oxygen Concentration - - Weight 67.4 kg (148 lb 8 oz) 10/15/2021 10:08 AM EDT Height - - Body Mass Index 26.31 03/26/2021 12:49 PM EST documented in this encounter Plan of Treatment Upcoming Encounters Date Type Department Care Team (Late st Contact Info) Description 11/13/2023 7:45 AM EDT Office Visit [facility] [place] Medical Oncology at [address] [phone] Ricci Carter MD [address] [place] [address] 11/13/2023 8:30 AM EDT Infusion [facility] [place] [facility]fusion [facility] [place] [address] [place] [address] Ricci Carter MD [address] [place] [address] Keiko Hallman MD 80 [facility] [address] 11/20/2023 11:00 AM EDT Appointment [facility] Radiology Sh[facility] Mammography [address] [place] [phone] Ricci Carter MD [address] [place] [address] 11/20/2023 11:30 AM EDT Appointment [facility] Radiology Sh[facility] Mammography [address] [place] [phone] Ricci Carter MD [address] [place] [address] 03/05/2024 11:00 AM EST Consult [facility] Cardiology [place] [address] [facility] [address] [place] [phone] Ricci Carter MD [address] [place] [address] Jamil Ralph MD [address] [place] [facility] [place] [address] [place], [place] [phone] 05/30/2024 9:00 AM EST Office Visit [facility] Physicians Department of Internal Medicine [facility] [address] [phone] Consuelo Hobbs PA-C [address] [phone] documented as of this encounter Visit Diagnoses Diagnosis Carcinoid tumor of ileum, unspecified whether malignant (HCC)- Primary documented in this encounter Administered Medications Inactive Administered Medications - up to 1 most recent administrations Medication Order MAR Action Action Date Dose Rate Site octreotide (SandoSTATIN LAR) IM injection 40 mg 40 mg, Intramuscular, Once, On Mon10/15/21 at 1100, For 1 dose, Administer IM intragluteal (avoid deltoid administration). For intraMUSCULAR use ONLY. Must be administered immediately after mixing. Given 10/15/2021 10:18 AM EDT 40 mg Left Gluteal Upper Outer Quadrant documented in this encounter Care Teams Doctor Chiropractic Relationship Specialty Start Date End Date Consuelo Hobbs PA-C [address] [phone] PCP - General 05/01/19 Madi Sharp MD [address] [place] [address] Gastroenterology 10/02/19 documented as of this encounter
--- OUTSIDE RECORDS SUMMARY | 2023-10-29 17:47 | XMS_ITS | Encounter Summary ---
Author Organization [facility] Address [address] [place] [address] Care Team Providers Care Area Operations Manager Name Role Phone Consuelo Hobbs PA-C Primary Care Provider Madi Sharp MD Unavailable [phone] Reason for Visit * Reason Comments Injections * Episode Based Medications (Routine) - Authorized Specialty Diagnoses / Procedures Referred By Contbalbir t Referred To Contact Diagnoses Carcinoid tumor of ileum, unspecified whether malignant (HCC) Keiko Hallman MD 80 [facility] [place] [address] [phone] Referral ID Status Reason Start Date Expiration Date V isits Requested Visits Authorized [id number] Authorized 04/29/2022 11/27/2023 5 2 Encounter Details Date Type Department Care Team (Late st Contact Info) Description 02/28/2022 10:00 AM EST Infusion [facility] [place] at [facility] Outpatient Infusion Center [address] [phone] Ricci Carter MD [address] [place] [address] Keiko Hallman MD [address] [place] [address] Oncology [place] [phone] Shaina Washington RN [address] [place] [address] Carcinoid tumor of ileum, unspecified whether malignant [...] [facility] Medical Oncology at [address] [phone] Ricci Carter MD [address] [place] [address] 11/13/2023 8:30 AM EDT Infusion [facility] [place] at [facility] Outpatient Infusion Center [address] [phone] Ricci Carter MD [address] [place] [address] Keiko Hallman MD [address] [place] [address] [place] [address] 11/20/2023 11:00 AM EDT Appointment [facility] Radiology [facility] Mammography [address] [place] [phone] Ricci Carter MD [address] [place], [place] [phone] 11/20/2023 11:30 AM EDT Appointment [facility] Radiology [place] [facility] [address] [place] [phone] Ricci Carter MD [address] [place], [place] [phone] 03/05/2024 11:00 AM EST Consult [facility] Cardiology [address] [place] [phone] Ricci Carter MD [address] [place], [place] [phone] Jamil Ralph MD [address] [place] [facility] [address] [place] [address] 05/30/2024 9:00 AM EST Office Visit [facility] Department of Internal Medicine [facility] 1210 [facility] [address] [place], [place] [phone] Consuelo Hobbs PA-C 1210 [facility] [address] [place], [place] [phone] documented as of this encounter Visit Diagnoses Diagnosis Carcinoid tumor of ileum, unspecified whether malignant (HCC)- Primary documented in this encounter Administered Medications Inactive Administered Medications - up to 1 most recent administrations Medication Order MAR Action Action Date Dose Rate Site octreotide (SandoSTATIN LAR) IM injection 40 mg 40 mg, Intramuscular, Once, On 02/28/22 at 1100, For 1 dose, Administer IM intragluteal (avoid deltoid administration). For intraMUSCULAR use ONLY. Must be administered immediately after mixing. Given 02/28/2022 10:30 AM EST 40 mg Other (See Comments) documented in this encounter Care Teams Area Operations Manager Relationship Specialty Start Date End Date Consuelo Hobbs PA-C [address] [address] PCP - General 05/01/19 Madi Sharp MD [address] [address] Gastroenterology 10/02/19 documented as of this encounter
--- OUTSIDE RECORDS SUMMARY | 2023-10-29 17:47 | XMS_ITS | Encounter Summary ---
Author Organization [facility] Address [address] [place] [address] Care Team Providers Care Dryerman/Woman Name Role Phone Consuelo Hobbs PA-C Primary Care Provider Madi Sharp MD Unavailable [phone] Reason for Visit * Reason Comments Injections * Episode Based Medications (Routine) - Authorized Specialty Diagnoses / Procedures Referred By Contbalbir t Referred To Contact Diagnoses Carcinoid tumor of ileum, unspecified whether malignant (HCC) Keiko Hallman MD 80 [facility] [place] [address] Med Onc Ci [address] [phone] Referral ID Status Reason Start Date Expiration Date V isits Requested Visits Authorized [id number] Authorized 04/29/2022 11/27/2023 5 2 Encounter Details Date Type Department Care Team (Late st Contact Info) Description 11/05/2021 9:00 AM EDT Infusion [facility] [place] at [facility] Outpatient Infusion Center [address] [phone] Ricci Carter MD [address] [place] [address] Keiko Hallman MD 80 [facility] [place] [address] Cony Garduno RN 80 [place] [address] Carcinoid tumor of ileum, unspecified whether malignant [...] Sign Reading Time Taken Comments Blood Pressure 148/67 11/05/2021 8:31 AM EDT Pulse 79 11/05/2021 8:31 AM EDT Temperature 35.9 ??C (96.7 ??F) 11/05/2021 8:31 AM ED T Respiratory Rate 16 11/05/2021 8:31 AM EDT Oxygen Saturation 98% 11/05/2021 8:31 AM EDT Inhaled Oxygen Concentration - - Weight 67.4 kg (148 lb 9.6 oz) 11/05/2021 8:31 A M EDT Height - - Body Mass Index 26.32 03/26/2021 12:49 PM EST documented in this encounter Plan of Treatment Upcoming Encounters Date Type Department Care Team (Late st Contact Info) Description 11/13/2023 7:45 AM EDT Office Visit [facility] Medical Oncology at [address] [phone] Ricci Carter MD [address] [place] [address] 11/13/2023 8:30 AM EDT Infusion [facility] [place] at [facility] Outpatient Infusion Center [address] [phone] Ricci Carter MD [address] [place] [address] Keiko Hallman MD 80 [facility] [place] [address] 11/20/2023 11:00 AM EDT Appointment [facility] Radiology Shay Mammography [address] [place] [phone] Ricci Carter MD [address] [place] [address] 11/20/2023 11:30 AM EDT Appointment [facility] Radiology [facility] Mammography 35 [place] [phone] Ricci Carter MD [address] [place], [place] [phone] 03/05/2024 11:00 AM EST Consult [facility] Cardiology [place] [address] [facility] [address] [place] [phone] Ricci Carter MD [address] [place] [address] Jamil Ralph MD [address] [place] [facility] [address] [place], [place] [phone] 05/30/2024 9:00 AM EST Office Visit [facility] Department of Internal Medicine [facility] [address] [phone] Consuelo Hobbs PA-C [address] [phone] documented as of this encounter Visit Diagnoses Diagnosis Carcinoid tumor of ileum, unspecified whether malignant (HCC)- Primary documented in this encounter Administered Medications Inactive Administered Medications - up to 1 most recent administrations Medication Order MAR Action Action Date Dose Rate Site octreotide (SandoSTATIN LAR) IM injection 40 mg 40 mg, Intramuscular, Once, On Mon11/05/21 at 0900, For 1 dose, Administer IM intragluteal (avoid deltoid administration). For intraMUSCULAR use ONLY. Must be administered immediately after mixing. Given 11/05/2021 8:31 AM EDT 40 mg Left Gluteal Upper Outer Quadrant documented in this encounter Care Teams Dryerman/Woman Relationship Specialty Start Date End Date Consuelo Hobbs PA-C [address] [phone] PCP - General 05/01/19 Madi Sharp MD [address] [place] [address] Gastroenterology 10/02/19 documented as of this encounter
--- OUTSIDE RECORDS SUMMARY | 2023-10-29 17:48 | XMS_ITS | Encounter Summary ---
Author Organization [facility] Address [address] [place] [address] Care Team Providers Care Program Management Analyst Name Role Phone Consuelo Hobbs PA-C Primary Care Provider Madi Sharp MD Unavailable [phone] Encounter Details Date Type Department Care Team (Late st Contact Info) Description 07/13/2021 Orders Only [facility] Cancer [place] Medical Oncology at [address] [phone] Lilli Peguero, YASEMIN [address] [place] [address] Social History Tobacco Use Types Packs/Day Years [...] Exposure Response Date Recorded In the last month, have you been in contact with someone who was confirmed or suspected to have Coronavirus / COVID-19? No / Unsure 07/13/2021 8:31 AM EDT documented as of this encounter Plan of Treatment Upcoming Encounters Date Type Department Care Team (Late st Contact Info) Description 11/13/2023 7:45 AM EDT Office Visit [facility] Medical Oncology at [address] [phone] Ricci Carter MD [address] [place], [place] [phone] 11/13/2023 8:30 AM EDT Infusion [facility] Cancer [place] at [facility] Outpatient Infusion Center [address] [phone] Ricci Carter MD [address] [place], [place] [phone] Keiko Hallman MD 80 [facility] [place] [address] 11/20/2023 11:00 AM EDT Appointment [facility] Radiology Shay Mammography [address] [place] [phone] Ricci Carter MD [address] [place], [place] [phone] 11/20/2023 11:30 AM EDT Appointment [facility] Radiology Sh[facility] Mammography [address] [place] [phone] Ricci Carter MD [address] [place], [place] [phone] 03/05/2024 11:00 AM EST Consult [facility] Cardiology [address] [place] [phone] Ricci Carter MD [address] [place] [address] Jamil Ralph MD [address] [place] [facility] [address] [place] [address] 05/30/2024 9:00 AM EST Office Visit [facility] Department of Internal Medicine [facility] 1210 [facility] [address] [place] [address] Consuelo Hobbs PA-C 1210 [facility] [address] [place] [address] documented as of this encounter Visit Diagnoses Not on filedocumented in this encounter Care Teams Program Management Analyst Relationship Specialty Start Date End Date Consuelo Hobbs PA-C [address] [place] [address] 109 [place] [address] PCP - General 05/01/19 Madi Sharp MD [address] [place] [address] Gastroenterology 10/02/19 documented as of this encounter
--- OUTSIDE RECORDS SUMMARY | 2023-10-29 17:48 | XMS_ITS | Encounter Summary ---
Author Organization [facility] Address [address] [place] [address] Care Team Providers Care Casting Plug Assembler Name Role Phone Consuelo Hobbs PA-C Primary Care Provider Madi Sharp MD Unavailable [phone] Encounter Details Date Type Department Care Team (Latest Contact Info) Description 05/11/2021 Travel Social History Tobacco Use Types Packs/Day Years Used Date Smoking Tobacco: Every Day Smokeless Tobacco: Never Comments:Patient will contin ue to ration down the number of cigarettes consumed daily. No objection to nicotine replacement but it seems unlikely to be needed Alcohol Use Standard Drinks/Week Comments Yes 2 (1 standard drink = 0.6 oz pur [...] have Coronavirus / COVID-19? No / Unsure 05/11/2021 8:55 AM EST documented as of this encounter Plan of Treatment Upcoming Encounters Date Type Department Care Team (Late st Contact Info) Description 11/13/2023 7:45 AM EDT Office Visit [facility] [place] Medical Oncology at [address] [phone] Ricci Carter MD 85 [place] [address] 11/13/2023 8:30 AM EDT Infusion [facility] Cancer [place] at [facility] Outpatient Infusion Center [address] [phone] Ricci Carter MD [address] [place], [place] [phone] Keiko Hallman MD 80 [facility] [place] [address] 11/20/2023 11:00 AM EDT Appointment [facility] Radiology Shay Mammography [address] [place] [phone] Ricci Carter MD [address] [place] [phone] 11/20/2023 11:30 AM EDT Appointment [facility] Radiology Shay Mammography 35 [place] [phone] Ricci Carter MD [address] [place] [phone] 03/05/2024 11:00 AM EST Consult [facility] Cardiology [address] [place] [phone] Ricci Carter MD [address] [place] [phone] Jamil Ralph MD [address] [place], [place] [phone] 05/30/2024 9:00 AM EST Office Visit [facility] [address] [phone] Consuelo Hobbs PA-C [address] [phone] documented as of this encounter Visit Diagnoses Not on filedocumented in this encounter Care Teams Casting Plug Assembler Relationship Specialty Start Date End Date Consuelo Hobbs PA-C [address] [place] [phone] PCP - General 05/01/19 Madi Sharp MD [address] [place] [address] Gastroenterology 10/02/19 documented as of this encounter
--- OUTSIDE RECORDS SUMMARY | 2023-10-29 17:48 | XMS_ITS | Encounter Summary ---
Author Organization [facility] Address [address] [place] [address] Care Team Providers Care Clinical Nurse Manager Name Role Phone Consuelo Hobbs PA-C Primary Care Provider Madi Sharp MD Unavailable [phone] Reason for Visit * Episode Based Medications (Routine) - Authorized Specialty Diagnoses / Procedures Referred By Contac t Referred To Contact Diagnoses Carcinoid tumor of ileum, unspecified whether malignant (HCC) Keiko Hallman MD 80 [facility] [place] [address] Med Onc Ci [address] [phone] Referral ID Status Reason Start Date Expiration Date V isits Requested Visits Authorized [id number] Authorized 04/29/2022 11/27/2023 5 2 Encounter Details Date Type Department Care Team (Late st Contact Info) Description 07/13/2021 8:30 AM EDT Infusion [facility] Cancer [place] at [facility] Outpatient Infusion Center [address] [phone] Ricci Carter MD [address] [place] [address] Keiko Hallman MD 80 [facility] [place] [address] Carcinoid tumor of ileum, unspecified whether malignant [...] Reading Time Taken Comments Blood Pressure 136/66 07/13/2021 8:45 AM EDT Pulse 81 07/13/2021 8:45 AM EDT Temperature 36.2 ??C (97.1 ??F) 07/13/2021 8:45 AM ED T Respiratory Rate 16 07/13/2021 8:45 AM EDT Oxygen Saturation 100% 07/13/2021 8:45 AM EDT Inhaled Oxygen Concentration - - Weight 65.5 kg (144 lb 8 oz) 07/13/2021 8:45 AM EDT Height - - Body Mass Index 25.6 03/26/2021 12:49 PM EST documented in this encounter Plan of Treatment Upcoming Encounters Date Type Department Care Team (Late st Contact Info) Description 11/13/2023 7:45 AM EDT Office Visit [facility] Cancer [place] Medical Oncology at [address] [phone] Rcici Carter MD [address] [place] [address] 11/13/2023 8:30 AM EDT Infusion [facility] Cancer [place] at [facility] Outpatient Infusion Center [address] [phone] Ricci Carter MD [address] [place], [place] [phone] Keiko Hallman MD 80 [facility] [place] [address] 11/20/2023 11:00 AM EDT Appointment [facility] Radiology Shay Mammography [address] [place] [phone] Ricci Carter MD [address] [place], [place] [phone] 11/20/2023 11:30 AM EDT Appointment [facility] Radiology Shay Mammography [address] [place] [phone] Ricci Carter MD [address] [place], [place] [id number] 03/05/2024 11:00 AM EST Consult [facility] Cardiology [address] [place] [phone] Ricci Carter MD [address] [place], [place] [phone] Jamil Ralph MD [address] [place] [facility] [address] [place], [place] [phone] 05/30/2024 9:00 AM EST Office Visit [facility] Department of Internal Medicine [address] [place] [address] Consuelo Hobbs PA-C [address] [phone] documented as of this encounter Visit Diagnoses Diagnosis Carcinoid tumor of ileum, unspecified whether malignant (HCC)- Primary documented in this encounter Administered Medications Inactive Administered Medications - up to 1 most recent administrations Medication Order MAR Action Action Date Dose Rate Site octreotide (SandoSTATIN LAR) IM injection 40 mg 40 mg, Intramuscular, Once, On Mon07/13/21 at 0930, For 1 dose, Administer IM intragluteal (avoid deltoid administration). For intraMUSCULAR use ONLY. Must be administered immediately after mixing. Given 07/13/2021 8:46 AM EDT 40 mg Left Gluteal Upper Outer Quadrant documented in this encounter Care Teams Clinical Nurse Manager Relationship Specialty Start Date End Date Consuelo Hobbs PA-C [address] [phone] PCP - General 05/01/19 Madi Sharp MD [address] [place] [address] Gastroenterology 10/02/19 documented as of this encounter
--- OUTSIDE RECORDS SUMMARY | 2023-10-29 17:48 | XMS_ITS | Encounter Summary ---
Author Organization [facility] Address [address] [place] [address] Care Team Providers Care Roll Sheeting Cutter Name Role Phone Consuelo Hobbs PA-C Primary Care Provider Madi Sharp MD Unavailable [phone] Reason for Visit * Episode Based Medications (Routine) - Authorized Specialty Diagnoses / Procedures Referred By Contac t Referred To Contact Diagnoses Carcinoid tumor of ileum, unspecified whether malignant (HCC) Keiko Hallman MD 80 [facility] [place] [address] Med Onc Ci [address] [address] Referral ID Status Reason Start Date Expiration Date V isits Requested Visits Authorized [id number] Authorized 04/29/2022 11/27/2023 5 2 Encounter Details Date Type Department Care Team (Late st Contact Info) Description 04/20/2021 9:00 AM EST Infusion [facility] [place] at [facility]fusion [facility] [address] [phone] Ricci Carter MD [address] [place] [address] Keiko Hallman MD 80 [facility] [place] [address] Carcinoid tumor of ileum, unspecified whether malignant [...] have Coronavirus / COVID-19? No / Unsure 04/21/2021 7:38 AM EST documented as of this encounter Last Filed Vital Signs Vital Sign Reading Time Taken Comments Blood Pressure 142/84 04/20/2021 10:00 AM EST Pulse 90 04/20/2021 10:00 AM EST Temperature 36.4 ??C (97.5 ??F) 04/20/2021 10:[address] Respiratory Rate 16 04/20/2021 10:00 AM EST Oxygen Saturation - - Inhaled Oxygen Concentration - - Weight 60 kg (132 lb 4.4 oz) 04/20/2021 10:00 AM EST Height - - Body Mass Index 23.43 03/26/2021 12:49 PM EST documented in this encounter Plan of Treatment Upcoming Encounters Date Type Department Care Team (Late st Contact Info) Description 11/13/2023 7:45 AM EDT Office Visit [facility] [place] Medical Oncology at [address] [place] [phone] Ricci Carter MD [address] [place] [address] 11/13/2023 8:30 AM EDT Infusion [facility] [place] at [facility] [address] [phone] Ricci Carter MD [address] [place], [place] [phone] Keiko Hallman MD 80 [facility] [place] [address] 11/20/2023 11:00 AM EDT Appointment [facility] Radiology Shay Mammography [address] [place] [phone] Ricci Carter MD [address] [place], [place] [id number] 11/20/2023 11:30 AM EDT Appointment [facility] Radiology [facility] Mammography [address] [place] [address] [phone] Ricci Carter MD [address] [place], [place] [id number] 03/05/2024 11:00 AM EST Consult [facility] Cardiology [address] [place] [phone] Ricci Carter MD [address] [place] [address] Jamil Ralph MD [address] [place] [facility] [address] [place], [place] [id number] 05/30/2024 9:00 AM EST Office Visit [facility] Department of Internal Medicine [address] [place] [address] Consuelo Hobbs PA-C [address] [phone] documented as of this encounter Visit Diagnoses Diagnosis Carcinoid tumor of ileum, unspecified whether malignant (HCC)- Primary documented in this encounter Administered Medications Inactive Administered Medications - up to 1 most recent administrations Medication Order MAR Action Action Date Dose Rate Site octreotide (SandoSTATIN LAR) IM injection 40 mg 40 mg, Intramuscular, Once, On Mon04/20/21 at 1030, For 1 dose, Administer IM intragluteal (avoid deltoid administration). For intraMUSCULAR use ONLY. Must be administered immediately after mixing. Given 04/20/2021 9:42 AM EST 40 mg Other (See Comments) documented in this encounter Care Teams Roll Sheeting Cutter Relationship Specialty Start Date End Date Consuelo Hobbs PA-C [address] [address] PCP - General 05/01/19 Madi Sharp MD [address] [place] [address] Gastroenterology 10/02/19 documented as of this encounter
--- OUTSIDE RECORDS SUMMARY | 2023-10-29 17:48 | XMS_ITS | Encounter Summary ---
Author Organization [facility] Address [address] [place] [address] Care Team Providers Care Glass Sander Name Role Phone Consuelo Hobbs PA-C Primary Care Provider Madi Sharp MD Unavailable [phone] Encounter Details Date Type Department Care Team (Latest Contact Info) Description 04/20/2021 Travel Social History Tobacco Use Types Packs/Day [...] have Coronavirus / COVID-19? No / Unsure 04/20/2021 8:57 AM EST documented as of this encounter Plan of Treatment Upcoming Encounters Date Type Department Care Team (Late st Contact Info) Description 11/13/2023 7:45 AM EDT Office Visit [facility] Cancer [place] Medical Oncology at [address] [phone] Ricci Carter MD 85 [place] [address] 11/13/2023 8:30 AM EDT Infusion [facility] [place] at [facility] Out[facility] Infusion Center [address] [phone] Ricci Carter MD [address] [place], [place] [phone] Keiko Hallman MD 80 [facility] [place] [address] 11/20/2023 11:00 AM EDT Appointment [facility] Radiology Shay Mammography [address] [place] [address] [phone] Ricci Carter MD [address] [place] [id number] 11/20/2023 11:30 AM EDT Appointment [facility] Radiology Shay Mammography [address] [place] [phone] Ricci Carter MD [address] [place] [id number] 03/05/2024 11:00 AM EST Consult [facility] Cardiology [address] [place] [phone] Ricci Carter MD [address] [place] [phone] Jamil Ralph MD [address] [place], [place] [phone] 05/30/2024 9:00 AM EST Office Visit [facility] [address] [phone] Consuelo Hobbs PA-C [address] [phone] documented as of this encounter Visit Diagnoses Not on filedocumented in this encounter Care Teams Glass Sander Relationship Specialty Start Date End Date Consuelo Hobbs PA-C [address] [place] [phone] PCP - General 05/01/19 Madi Sharp MD [address] [place] [address] Gastroenterology 10/02/19 documented as of this encounter
--- OUTSIDE RECORDS SUMMARY | 2023-10-29 17:48 | XMS_ITS | Encounter Summary ---
Author Organization [facility] Address [address] [place] [address] Care Team Providers Care Mess Attendant Name Role Phone Consuelo Hobbs PA-C Primary Care Provider Madi Sharp MD Unavailable [phone] Encounter Details Date Type Department Care Team ([facility] Contact Info) Description 06/01/2021 Scanned Document [facility] Cancer [place] Medical Oncology at [address] [phone] Provider, Dodie, [address] [place] [address] Social History Tobacco Use Types Packs/Day Years [...] have Coronavirus / COVID-19? No / Unsure 06/01/2021 9:12 AM EST documented as of this encounter Plan of Treatment Upcoming Encounters Date Type Department Care Team ([facility] st Contact Info) Description 11/13/2023 7:45 AM EDT Office Visit [facility] Medical Oncology at [address] [phone] Ricci Carter MD [address] [place], [place] [phone] 11/13/2023 8:30 AM EDT Infusion [facility] Cancer [place] at [facility] Outpatient Infusion Center [address] [phone] Ricci Carter MD [address] [place], [place] [phone] Keiko Hallman MD 80 [facility] [place] [address] 11/20/2023 11:00 AM EDT Appointment [facility] Radiology Shay Mammography [address] [place] [address] [phone] Ricci Carter MD [address] [place], [place] [id number] 11/20/2023 11:30 AM EDT Appointment [facility] Radiology Shay Mammography [address] [place] [phone] Ricci Carter MD [address] [place], [place] [phone] 03/05/2024 11:00 AM EST Consult [facility] Cardiology [address] [place] [phone] Ricci Carter MD [address] [place], [place] [phone] Jamil Ralph MD [address] [place] [address] 05/30/2024 9:00 AM EST Office Visit [facility] Department of Internal Medicine [facility] 1210 [facility] [address] [place] [address] Consuelo Hobbs PA-C 1210 [facility] 109 [place] [address] documented as of this encounter Visit Diagnoses Not on filedocumented in this encounter Care Teams Mess Attendant Relationship Specialty Start Date End Date Consuelo Hobbs PA-C [address] [address] PCP - General 05/01/19 Madi Sharp MD [address] [address] Gastroenterology 10/02/19 documented as of this encounter
--- OUTSIDE RECORDS SUMMARY | 2023-10-29 17:48 | XMS_ITS | Encounter Summary ---
Author Organization [facility] Address [address] [place] [address] Care Team Providers Care Cloud Systems Architect Name Role Phone Consuelo Hobbs PA-C Primary Care Provider Madi Sharp MD Unavailable [phone] Encounter Details Date Type Department Care Team ([facility] Contact Info) Description 06/01/2021 Orders Only [facility] Cancer [place] Medical Oncology at [address] [phone] Provider, Dodie, [address] [place] [address] Social History Tobacco Use Types Packs/Day Years [...] Upcoming Encounters Date Type Department Care Team ([facility] st Contact Info) Description 11/13/2023 7:45 AM EDT Office Visit [facility] Medical Oncology at [address] [phone] Ricci Carter MD [address] [place], [place] [phone] 11/13/2023 8:30 AM EDT Infusion [facility] Cancer [place] at [facility] Outpatient Infusion Center [address] [phone] Ricci Carter MD [address] [place], [place] [phone] Keiko Hallman MD 80 [facility] [place] [address] 11/20/2023 11:00 AM EDT Appointment [facility] Radiology Shay Mammography [address] [place] [address] [phone] Ricci Carter MD [address] [place], [place] [phone] 11/20/2023 11:30 AM EDT Appointment [facility] Radiology Shay Mammography [address] [place] [phone] Ricci Carter MD [address] [place], [place] [address] 03/05/2024 11:00 AM EST Consult [facility] Cardiology [address] [place] [phone] Ricci Carter MD [address] [place], [place] [phone] Jamil Ralph MD [address] [place] [address] 05/30/2024 9:00 AM EST Office Visit [facility] Department of Internal Medicine [facility] 1210 [facility] [address] [place] [address] Consuelo Hobbs PA-C 1210 [facility] 109 [place] [address] documented as of this encounter Procedures Procedure Name Priority Date/Time Associated Diagnosis Comments ECHOCARDIOGRAM Routine 06/01/2021 documented in this encounter Results * ECHOCARDIOGRAM (06/01/2021) Anatomical Region Laterality Modality Other External Provider CV LEGACY PROCEDURE S documented in this encounter Visit Diagnoses Not on filedocumented in this encounter Care Teams Cloud Systems Architect Relationship Specialty Start Date End Date Consuelo Hobbs PA-C [address] [phone] PCP - General 05/01/19 Madi Sharp MD 85 [facility] [place] [address] [place] [address] Gastroenterology 10/02/19 documented as of this encounter
--- OUTSIDE RECORDS SUMMARY | 2023-10-29 17:48 | XMS_ITS | Encounter Summary ---
Author Organization [facility] Address [address] [place] [address] Care Team Providers Care Signalling And Communications Engineer Name Role Phone Consuelo Hobbs PA-C Primary Care Provider Madi Sharp MD Unavailable [phone] Reason for Visit * Episode Based Medications (Routine) - Authorized Specialty Diagnoses / Procedures Referred By Contac t Referred To Contact Diagnoses Carcinoid tumor of ileum, unspecified whether malignant (HCC) Keiko Hallman MD 80 [facility] [place] [address] Med Onc Ci [address] [phone] Referral ID Status Reason Start Date Expiration Date V isits Requested Visits Authorized [id number] Authorized 04/29/2022 11/27/2023 5 2 Encounter Details Date Type Department Care Team (Late st Contact Info) Description 06/01/2021 9:00 AM EST Infusion [facility] Cancer [place] at [facility] Outpatient Infusion Center [address] [phone] Ricci Carter MD [address] [place] [address] Keiko Hallman MD 80 [facility] [place] [address] Alissa Sánchez, RN [address] [facility] [address] [place] [address] Carcinoid tumor of ileum, unspecified whether malignant [...] 7:45 AM EDT Office Visit [facility] Medical Oncology at [address] [phone] Ricci Carter MD [address] [place] [address] 11/13/2023 8:30 AM EDT Infusion [facility] Cancer [place] at [facility] Outpatient Infusion Center [address] [phone] Ricci Carter MD [address] [place] [address] Keiko Hallman MD 80 [facility] [place] [address] 11/20/2023 11:00 AM EDT Appointment [facility] Radiology Shay Mammography [address] [place] [phone] Ricci Carter MD [address] [place], [place] [phone] 11/20/2023 11:30 AM EDT Appointment [facility] Radiology [place] M[facility] [address] [place] [address] [phone] Ricci Carter MD [address] [place], [place] [phone] 03/05/2024 11:00 AM EST Consult [facility] Cardiology [address] [place] [phone] Ricci Carter MD [address] [place], [place] [phone] Jamil Ralph MD 100 [place] [facility] [address] [place] [address] 05/30/2024 9:00 AM EST Office Visit [facility] 1210 [facility] [address] [place], [place] [phone] Consuelo Hobbs PA-C 1210 [facility] [address] [place], [place] [phone] documented as of this encounter Visit Diagnoses Diagnosis Carcinoid tumor of ileum, unspecified whether malignant (HCC)- Primary documented in this encounter Administered Medications Inactive Administered Medications - up to 1 most recent administrations Medication Order MAR Action Action Date Dose Rate Site octreotide (SandoSTATIN LAR) IM injection 40 mg 40 mg, Intramuscular, Once, On 06/01/21 at 1000, For 1 dose, Administer IM intragluteal (avoid deltoid administration). For intraMUSCULAR use ONLY. Must be administered immediately after mixing. Given 06/01/2021 9:32 AM EST 40 mg Right Gluteal Upper Outer Quadrant documented in this encounter Care Teams Signalling And Communications Engineer Relationship Specialty Start Date End Date Consuelo Hobbs PA-C [address] [address] PCP - General 05/01/19 Madi Sharp MD [address] [address] Gastroenterology 10/02/19 documented as of this encounter
--- OUTSIDE RECORDS SUMMARY | 2023-10-29 17:48 | XMS_ITS | Encounter Summary ---
Author Organization [facility] Address [address] [place] [address] Care Team Providers Care Graduate Teaching Assistant Name Role Phone Consuelo Hobbs PA-C Primary Care Provider Madi Sharp MD Unavailable [phone] Encounter Details Date Type Department Care Team (Latest Contact Info) Description 04/21/2021 Travel Social History Tobacco Use Types Packs/Day [...] EDT Office Visit [facility] [place] Medical Oncology at [address] [phone] Ricci Carter MD 85 [place] [address] 11/13/2023 8:30 AM EDT Infusion [facility] [place] at [facility] Outpatient Infusion Center [address] [phone] Ricci Carter MD [address] [place] [phone] Keiko Hallman MD 80 [facility] [place] [address] 11/20/2023 11:00 AM EDT Appointment [facility] Radiology Shay Mammography [address] [place] [address] [phone] Ricci Carter MD [address] [place] [phone] 11/20/2023 11:30 AM EDT Appointment [facility] Radiology Shay Mammography 35 [place] [phone] Ricci Carter MD [address] [place] [id number] 03/05/2024 11:00 AM EST Consult [facility] Cardiology [address] [place] [phone] Ricci Carter MD [address] [place], [place] [phone] Jamil Ralph MD [address] [place], [place] [phone] 05/30/2024 9:00 AM EST Office Visit [facility] [address] [phone] Consuelo Hobbs PA-C [address] [phone] documented as of this encounter Visit Diagnoses Not on filedocumented in this encounter Care Teams Graduate Teaching Assistant Relationship Specialty Start Date End Date Consuelo Hobbs PA-C [address] [place] [phone] PCP - General 05/01/19 Madi Sharp MD [address] [place] [address] Gastroenterology 10/02/19 documented as of this encounter
--- OUTSIDE RECORDS SUMMARY | 2023-10-29 17:48 | XMS_ITS | Encounter Summary ---
Author Organization [facility] Address [address] [place] [address] Care Team Providers Care Teacher Of The Deaf/Hard Of Hearing Name Role Phone Consuelo Hobbs PA-C Primary Care Provider Madi Sharp MD Unavailable [phone] Encounter Details Date Type Department Care Team (Latest Contact Info) Description 03/26/2021 Travel Social History Tobacco Use Types Packs/Day [...] have Coronavirus / COVID-19? No / Unsure 03/26/2021 12:34 PM EST documented as of this encounter Plan of Treatment Upcoming Encounters Date Type Department Care Team (Late st Contact Info) Description 11/13/2023 7:45 AM EDT Office Visit [facility] Cancer [place] Medical Oncology at [address] [phone] Ricci Carter MD 85 [place] [address] 11/13/2023 8:30 AM EDT Infusion [facility] [place] at [facility] Outpatient Infusion Center [address] [phone] Ricci Carter MD [address] [place] [phone] Keiko Hallman MD 80 [facility] [place] [address] 11/20/2023 11:00 AM EDT Appointment [facility] Radiology Shay Mammography [address] [place] [address] [phone] Ricci Carter MD [address] [place] [phone] 11/20/2023 11:30 AM EDT Appointment [facility] Radiology Shay Mammography 35 [place] [phone] Ricci Carter MD [address] [place] [phone] 03/05/2024 11:00 AM EST Consult [facility] Cardiology [address] [place] [phone] Ricci Carter MD [address] [place] [phone] Jamil Ralph MD [address] [place], [place] [phone] 05/30/2024 9:00 AM EST Office Visit [facility] [address] [phone] Consuelo Hobbs PA-C [address] [phone] documented as of this encounter Visit Diagnoses Not on filedocumented in this encounter Care Teams Teacher Of The Deaf/Hard Of Hearing Relationship Specialty Start Date End Date Consuelo Hobbs PA-C [address] [place] [phone] PCP - General 05/01/19 Madi Sharp MD [address] [place] [address] Gastroenterology 10/02/19 documented as of this encounter
--- OUTSIDE RECORDS SUMMARY | 2023-10-29 17:48 | XMS_ITS | Encounter Summary ---
Author Organization [facility] Address [address] [place] [address] Care Team Providers Care Centrifugal Station Operator Name Role Phone Consuelo Hobbs PA-C Primary Care Provider Madi Sharp MD Unavailable [phone] Reason for Visit * Auth/Cert Specialty Diagnoses / Procedures Referred By Contac t Referred To Contact Diagnoses Epigastric pain Hematemesis, presence of nausea not specified Epigastric pain [R10.13] Hematemesis, presence of nausea not specified [K92.0] Procedures ENDOSCOPY UPPER Referral ID Status Reason Start Date Expiration Date Visits Re quested Visits Authorized [id number] 1 1 Encounter Details Date Type Department Care Team (Latest Contact Info) Description 04/22/2021 12:36 PM EST - 04/22/2021 11:59 PM EST Hospital Encounter [facility] ENDO PROC GLAST [address] [place] [phone] Madi Sharp MD [address] [place] [address] Discharge Disposition: Home or Self Care Social [...] have Coronavirus / COVID-19? No / Unsure 04/22/2021 12:57 PM EST documented as of this encounter Last Filed Vital Signs Vital Sign Reading Time Taken Comments Blood Pressure 119/69 04/22/2021 2:06 PM EST Pulse 78 04/22/2021 2:06 PM EST Temperature 36.6 ??C (97.8 ??F) 04/22/2021 1:39 PM ES T Respiratory Rate 16 04/22/2021 2:06 PM EST Oxygen Saturation 99% 04/22/2021 2:06 PM EST Inhaled Oxygen Concentration - - Weight - - Height - - Body Mass Index - - documented in this encounter Medications at Time of Discharge Medication Sig Dispensed Refills Start Date End Date calcium carbonate (OS-ANGELICA) 600 MG tablet Take 1 tablet (600 mg total) by mouth every morning with breakfast. 0 Cannabis (MARIJUANA) [facility] Medical Prescription Strength as needed. 0 famotidine (PEPCID) 40 MG tablet Take 1 tablet (40 mg total) by mouth daily. 0 loperamide (IMODIUM A-D) 2 MG capsule Take 1 capsule (2 mg total) by mouth 4 (four) times a day as needed for diarrhea. 0 Multiple Vitamins-Minerals (Multi Complete) Cap Take 1 capsule by mouth See Admin Instructions. 0 05/17/2019 calcium carbonate (CALTRATE) 1500 (600 Ca) MG tablet Take 1 tablet by mouth daily. 0 05/17/2019 06/07/2022 colestipol (COLESTID) 1 g tabletIndications:Diarrh ea, unspecified type,Carcinoid tumor of ileum (HCC) Take 2 tablets (2 g total) by mouth 2 (two) times a day. With a large glass of water. 120 tablet 5 01/20/2020 12/14/2021 colestipol (COLESTID) 1 g tablet Take 1 tablet by mouth 2 (two) times a day. 0 06/28/2019 06/07/[address] Particles capsule 36,000 Units 3 (three) times a day with meals. 0 07/30/2015 12/14/2021 ergotamine-caffeine (CAFERGOT) 1-100 MG per tabletIndications:Migrai ne with status migrainosus, not intractable, unspecified migraine type TAKE 1 TABLET BY MOUTH TWICE DAILY NEEDED 12 tablet 3 12/06/2016 06/30/2022 famotidine (PEPCID) 40 MG tablet Take 1 tablet by mouth 2 (two) times a day. 0 01/03/2018 06/07/2022 granisetron (KYTRIL) 1 MG tabletIndications:Carcin oid tumor of ileum (HCC) Take 2 tablets (2 mg total) by mouth daily. 60 tablet 5 03/09/2021 01/03/2022 morphine (ROXANOL) 10 mg/5 mL solution Take 2.5 mL (5 mg total) by mouth 4 (four) times a day as needed for diarrhea. 2.5-5ML q6hrs prn 0 08/16/2019 01/31/2023 Multiple Vitamin tablet Take 1 tablet by mouth daily. 0 06/07/2022 octreotide (SandoSTATIN LAR) 10 MG IM injection Inject 40 mg into the shoulder, thigh, or buttocks every 21 days. 0 06/07/2022 octreotide (SandoSTATIN) 100 MCG/ML injectionIndications:Car cinoid tumor of ileum (HCC) Inject 1 mL (100 mcg total) under the skin 3 times daily (every 8 hours) as needed (diarrhea, flushing). 90 mL 11 11/25/2019 10/02/2023 omega-3 fatty acids (FISH OIL) 1000 MG Cap capsule Take 1 capsule (1,000 mg total) by mouth daily. 0 05/17/2019 01/31/2023 OMEprazole (PriLOSEC) 40 MG capsule Take 1 capsule by mouth daily. 0 05/20/2020 06/07/2022 rizatriptan (MAXALT-GAS CUTTER) 10 MG disintegrating tabletIndications:Migrai ne with status migrainosus, not intractable, unspecified migraine type DISSOLVE ONE TABLET BY MOUTH EVERY DAY NEEDED 9 tablet 0 03/30/2017 08/26/2022 Vitamin D3 (CHOLECALICEROL) 50 MCG (1999 UT) tablet Take 1 tablet (2,000 Units total) by mouth daily. 0 03/17/2022 documented as of this encounter H&P Notes * Madi Sharp MD - 04/22/2021 12:36 PM EST PREOPERATIVE H&P PROCEDURE: EGD CHIEF COMPLAINT: hematemesis HPI: Patient is a 50 y.o. year old female with hematemesis Past Medical History: Diagnosis Date ??? Abdominal [...] on file Tobacco Use ??? Smoking status: Current Every Day Smoker ??? Smokeless tobacco: Never Used ??? Tobacco comment: Patient will continue to ration down the number of cigarettes consumed daily. No objection to nicotine replacement but it seems unlikely to be needed Vaping Use ??? Vaping Use: Never used Substance and Sexual Activity ??? Alcohol use: Yes Alcohol/week: 2.0 standard drinks Types: 2 Glasses of wine per week ??? Drug use: Yes Types: Marijuana ??? Sexual activity: Not on file Other Topics Concern ??? Not on file Social History Narrative ??? Not on file Social Determinants of Health Financial Resource Strain: Not on file Food Insecurity: Not on file Transportation Needs: Not on file Physical Activity: Not on file Stress: Not on file Social Connections: Not on file Allergies Allergen Reactions ??? Levaquin [Levofloxacin] Myalgia/Myositis/Arthralgia/Arthritis ??? Cefaclor GI Intolerance/Nausea/Vomiting ??? Erythromycin GI Intolerance/Nausea/Vomiting Scheduled Meds: Continuous Infusions:No current facility-administered medications for this encounter. PRN Meds:. (Not in a hospital admission) Temp 97.7 ??F (36.5 ??C) (Temporal) LMP 04/08/2021 (Exact Date) Examination Eyes: no icterus ENT: No lymphadneopathy CVS: RRR Pulm: CTAB No C/W Abdomen: soft, NT, ND, BS + Extremities: no c/c/e Neuro: AAO X 3, no asterixis. IMPRESSION: hematemesis PLAN: Proceed with planned procedure. Benefits and risks of endoscopic procedure explained to patient including but not limited to bleeding, infection , perforation or anesthesia related side effects. ASA per anesthesia documented in this encounter Plan of Treatment Upcoming Encounters Date Type Department Care Team (Late st Contact Info) Description 11/13/2023 7:45 AM EDT Office Visit [facility] Medical Oncology at [address] [phone] Ricci Carter MD [address] [place] [address] 11/13/2023 8:30 AM EDT Infusion [facility] [place] [facility] [address] [phone] Ricci Carter MD [address] [place] [address] Keiko Hallman MD 80 [facility] [place] [address] 11/20/2023 11:00 AM EDT Appointment [facility] Radiology [place] [facility] [address] [place] [phone] Ricci Carter MD [address] [place] [phone] 11/20/2023 11:30 AM EDT Appointment [facility] Radiology [place] [facility] [address] [place] [phone] Ricci Carter MD [address] [place] [phone] 03/05/2024 11:00 AM EST Consult [facility] Cardiology [address] [place] [phone] Ricci Carter MD [address] [place] [phone] Jamil Ralph MD [address] [facility] [address] [place] [address] 05/30/2024 9:00 AM EST Office Visit [facility] Department of Internal Medicine [facility] [address] [facility] [address] [place] [address] Consuelo oHbbs PA-C [address] [address] documented as of this encounter Visit Diagnoses Not on filedocumented in this encounter Care Teams Centrifugal Station Operator Relationship Specialty Start Date End Date Consuelo Hobbs PA-C [address] [address] PCP - General 05/01/19 Madi Sharp MD [address] [address] Gastroenterology 10/02/19 documented as of this encounter
--- OUTSIDE RECORDS SUMMARY | 2023-10-29 17:48 | XMS_ITS | Encounter Summary ---
Author Organization [facility] Address [address] [place] [address] Care Team Providers Care Rug Hooker Name Role Phone Consuelo Hobbs PA-C Primary Care Provider Madi Sharp MD Unavailable [phone] Encounter Details Date Type Department Care Team ([facility] st Contact Info) Description 09/21/2021 8:15 AM EDT Office Visit [facility] [place] Medical Oncology at [address] [phone] Ricci Carter MD [address] [place] [address] Carcinoid tumor of ileum, unspecified whether malignant (Primary Dx); Encounter for monitoring octreotide therapy; Oncology follow-up encounter; Diarrhea, unspecified type Social History Tobacco Use [...] Sign Reading Time Taken Comments Blood Pressure 124/60 09/21/2021 8:26 AM EDT Pulse 87 09/21/2021 8:26 AM EDT Temperature 36.3 ??C (97.4 ??F) 09/21/2021 8:26 AM ED T Respiratory Rate - - Oxygen Saturation 99% 09/21/2021 8:26 AM EDT Inhaled Oxygen Concentration - - Weight 67.2 kg (148 lb 1.6 oz) 09/21/2021 8:26 A M EDT Height - - Body Mass Index 26.23 03/26/2021 12:49 PM EST documented in this encounter Progress Notes * Ricci Carter MD - 09/21/2021 8:15 AM EDT Images from the original note were not included. Medical Oncology/Hematology Progress Note Healthcare Team: Consuelo Hobbs PA-C Subjective: Date of visit is: 09/21/2021 Rody Sotelo is a 51 y.o. female who presents here today for a follow- up visit regarding carcinoid. ONCOLOGY HISTORY: - December 16, 2019, colonoscopy was normal. Interim History: She is a month overdue for her Sandostatin LAR. She reports worsening of abdominal pain/cramping and diarrhea. She has been without Kytril, as well d/t inability to get it from [facility]. Diarrhea improving now that she is back on meds. Multiple liquids stools even with loperamide. - Now, that she has been taking Kytril, she is having 4-5 stools per day (2 are liquid). No urgency. - abdominal cramping has improved. - she reports no nausea now, only when she was not taking Kytril. - denies flushing - only taking colestipol only once daily - she had required a few doses of short acting octreotide with some effect She is eating better since she stopped smoking. She reports no pain Pain: 0 REVIEW OF SYSTEMS: Review of Systems Constitutional: Positive for fatigue. Negative for appetite change, diaphoresis, fever and unexpected weight change. HENT: Negative for nosebleeds. Respiratory: Negative for chest tightness, cough, shortness of breath and wheezing. Cardiovascular: Negative for chest pain and leg swelling. Gastrointestinal: Negative for blood in stool and vomiting. Endocrine: Negative for hot flashes. Musculoskeletal: Negative for back pain. Tendonitis, working with PT Skin: Negative for rash. Neurological: Positive for headaches (migraines, unchanged). Negative for dizziness and light-headedness (occasional). Hematological: Negative for adenopathy. Does not bruise/bleed [...] breakfast., Disp: , Rfl: ??? Cannabis (MARIJUANA) [facility] Prescription Strength, as needed., Disp: , Rfl: ??? colestipol (COLESTID) 1 g tablet, Take 2 tablets (2 g total) by mouth 2 (two) times a day. Witha large glass of water. (Patient taking differently: Take 1 g by mouth 2 (two) times a day. With a large glass of water. 1g BID), Disp: 120 tablet, Rfl: 5 ??? CREON [address] Particles capsule, 36,000 Units [...] by mouth daily., Disp: , Rfl: ??? nicotine (NICODERM CQ) 21 MG/24HR patch, Place 1 patch on the skin daily., Disp: , Rfl: ??? nystatin (MYCOSTATIN) 001658 UNIT/ML suspension, Take 500,000 Units by mouth 4 (four) times a day., Disp: , Rfl: ??? octreotide (SandoSTATIN LAR) [...] morning before breakfast., Disp:, Rfl: ??? rizatriptan (MAXALT-CROP ROLLER) 10 MG disintegrating tablet, DISSOLVE ONE TABLET BY MOUTH EVERY DAY ASNEEDED, Disp: 9 tablet, Rfl: 0 ??? Vitamin D3 (CHOLECALICEROL) 50 MCG (2000 UT) tablet, Take 2,000 Units by mouth daily., Disp: , Rfl: Past Medical History Past Medical History: Diagnosis [...] ??? Years since quittin.3 Smokeless Tobacco Never Used Social History Substance and Sexual Activity Alcohol Use Not Currently Social History Substance and Sexual Activity Drug Use Yes ??? Types: Marijuana Objective: Wt Readings from Last 2 Encounters: 09/21/21 67.2 kg (148 lb 1.6 oz) 08/03/21 66.5 kg (146 lb 11.2 oz) Physical Exam Vitals: 09/21/21 0826 BP: 124/60 BP Location: Right arm Pulse: 87 Temp: 97.4 ??F (36.3 ??C) TempSrc: Temporal SpO2: 99% Weight: 67.2 kg (148 lb 1.6 oz) Performance status: ECOG (0) Fully active, able to carry on all predisease performance without restriction Physical Exam Constitutional: General: She is not in acute distress. Appearance: Normal appearance. She is well-developed. She is not ill-appearing. HENT: Head: Normocephalic and atraumatic. Eyes: General: No scleral icterus. Extraocular Movements: Extraocular movements intact. Conjunctiva/sclera: Conjunctivae normal. Pupils: Pupils are equal, round, and reactive to light. Cardiovascular: Rate and Rhythm: Normal rate and regular rhythm. Heart sounds: No murmur heard. Pulmonary: Effort: Pulmonary effort is normal. No respiratory distress. Breath sounds: Normal breath sounds. No wheezing, rhonchi or rales. Chest: Breasts: Right: No axillary adenopathy or supraclavicular adenopathy. Left: No axillary adenopathy or supraclavicular adenopathy. Abdominal: General: Abdomen is flat. Bowel sounds [...] 08/03/2021 CREAT 0.77 08/03/2021 Assessment/Plan: 1. Carcinoid, [id number] A. Diagnosed July 11, 2013 1. S/p small bowel resection and right hemicolectomy a. Path- well- differentiated neuroendocrine tumor B. Receiving Sandostatin LAR, initiated October 17, 2013 1. re- staging MR abdomen/pelvis (January 09, 2020)- SD 2. re- staging MR abdomen/pelvis (January 18, 2021)- SD In summary, Rody is a 51 y.o. female with a PMHx significant for: migraines, PCOS, IBS and PVCs whopresents here today for a follow- up visit regarding carcinoid. Rody continues to receive Sandostatin LAR for carcinoid though, she has missed her last dose. On August 03, 2021, she received 40 mg. She had to cancel her last doses. During that time she was without Sandostatin LAR, she noticed clear worsening of her diarrhea and cramping. She also went without granisetron for a period of time, also with clear worsening of her symptoms. She is without any carcinoidsymptoms. She is now taking granisetron 2 mg once daily with good effect. Symptoms are back to baseline. I reviewed her echocardiogram report from June 01, 2021, which reveals normal ventricular function and no valvular disease. Reviewed labs from August 03, 2021. All normal. 25- hydroxy vitamin D ordered, but never performed. Ordered today. Re- staging MRI of abdomen and pelvis were to be performed in July 2021, but not yet done. She will schedule. Continue: - sandostatin LAR 40 mg every 3 weeks - granisetron 2 mg once daily - colestipol, but recommended BID dosing - loperamide and short acting octreotide prn breakthrough - Creon She will schedule her MRI and follow up with the dietitian. Check 25- OH vitamin D level today. She remains tobacco free. No orders of the defined types were placed in this encounter. The patient will return in 12 weeks. There are no Patient Instructions on file for this visit. documented in this encounter Plan of Treatment Upcoming Encounters Date Type Department Care Team (Late st Contact Info) Description 11/13/2023 7:45 AM EDT Office Visit [facility] [place] Medical Oncology at [address] [phone] Ricci Carter MD [address] [place] [address] 11/13/2023 8:30 AM EDT Infusion [facility] [place] [facility]patient Infusion Center [address] [phone] Ricci Carter MD [address] [place] [address] Keiko Hallman MD 80 [facility] [place] [address] 11/20/2023 11:00 AM EDT Appointment [facility] Radiology [place] [facility] [address] [place] [phone] Ricci Carter MD [address] [place] [address] 11/20/2023 11:30 AM EDT Appointment [facility] Radiology [place] [facility] [address] [place] [phone] Ricci Carter MD [address] [place] [address] 03/05/2024 11:00 AM EST Consult [facility] Cardiology [place] [address] [facility] [address] [place] [phone] Ricci Carter MD [address] [place] [address] Jamil Ralph MD [address] [facility] [address] [place] [address] 05/30/2024 9:00 AM EST [facility] [address] [phone] Consuelo Hobbs PA-C [address] [phone] documented as of this encounter Visit Diagnoses Diagnosis Carcinoid tumor of ileum, unspecified whether malignant (HCC)- Primary Encounter for monitoring octreotide therapy Oncology follow-up encounter Diarrhea, unspecified type documented in this encounter Care Teams Rug Hooker Relationship Specialty Start Date End Date Consuelo Hobbs PA-C [address] [place] [address] PCP - General 05/01/19 Madi [place] MD [address] [place] [address] Gastroenterology 10/02/19 documented as of this encounter
--- OUTSIDE RECORDS SUMMARY | 2023-10-29 17:48 | XMS_ITS | Encounter Summary ---
Author Organization [facility] Address [address] [place] [address] Care Team Providers Care Electric Power Machine Operator Name Role Phone Consuelo Hobbs PA-C Primary Care Provider Madi Sharp MD Unavailable [phone] Reason for Visit * Episode Based Medications (Routine) - Authorized Specialty Diagnoses / Procedures Referred By Contac t Referred To Contact Diagnoses Carcinoid tumor of ileum, unspecified whether malignant (HCC) Keiko Hallman MD 80 [facility] [place] [address] Med On[address] [phone] Referral ID Status Reason Start Date Expiration Date V isits Requested Visits Authorized [id number] Authorized 04/29/2022 11/27/2023 5 2 Encounter Details Date Type Department Care Team (Late st Contact Info) Description 06/22/2021 9:00 AM EDT Infusion [facility] Cancer [place] [facility] Outpatient Infusion Center [address] [phone] Ricci Carter MD [address] [place] [address] Keiko Hallman MD [address] [facility] [place] [address] Alissa Sánchez RN [address] [facility] [address] [place] [address] Carcinoid tumor of ileum, unspecified whether malignant [...] have Coronavirus / COVID-19? No / Unsure 06/22/2021 8:45 AM EDT documented as of this encounter Last Filed Vital Signs Vital Sign Reading Time Taken Comments Blood Pressure 127/61 06/22/2021 8:53 AM EDT Pulse 73 06/22/2021 8:53 AM EDT Temperature 36.2 ??C (97.2 ??F) 06/22/2021 8:53 AM ED T Respiratory Rate 16 06/22/2021 8:53 AM EDT Oxygen Saturation 98% 06/22/2021 8:53 AM EDT Inhaled Oxygen Concentration - - Weight 64.2 kg (141 lb 9.6 oz) 06/22/2021 8:53 A M EDT Height - - Body Mass Index 25.08 03/26/2021 12:49 PM EST documented in this encounter Plan of Treatment Upcoming Encounters Date Type Department Care Team (Late st Contact Info) Description 11/13/2023 7:45 AM EDT Office Visit [facility] [place] Medical Oncology at [address] [phone] Ricci Carter MD [address] [place] [address] 11/13/2023 8:30 AM EDT Infusion [facility] [place] [facility] Outpatient Infusion Center [address] [phone] Ricci Carter MD [address] [place] [address] Keiko Hallman MD 80 [facility] [place] [address] 11/20/2023 11:00 AM EDT Appointment [facility] Radiology [place] [facility] [address] [place] [phone] Ricci Carter MD [address] [place] [address] 11/20/2023 11:30 AM EDT Appointment [facility] Radiology [place] [facility] [address] [place] [phone] Ricci Carter MD [address] [place] [address] 03/05/2024 11:00 AM EST Consult [facility] Cardiology [place] [address] [facility] [address] [place] [phone] Ricci Carter MD [address] [place] [address] Jamil Ralph MD [address] [facility] [address] [place], [place] [phone] 05/30/2024 9:00 AM EST Office Visit [facility] [address] [phone] Consuelo Hobbs PA-C [address] [phone] documented as of this encounter Visit Diagnoses Diagnosis Carcinoid tumor of ileum, unspecified whether malignant (HCC)- Primary documented in this encounter Administered Medications Inactive Administered Medications - up to 1 most recent administrations Medication Order MAR Action Action Date Dose Rate Site octreotide (SandoSTATIN LAR) IM injection 40 mg 40 mg, Intramuscular, Once, On Mon06/22/21 at 0930, For 1 dose, Administer IM intragluteal (avoid deltoid administration). For intraMUSCULAR use ONLY. Must be administered immediately after mixing. Given 06/22/2021 9:10 AM EDT 40 mg Left Gluteal Upper Outer Quadrant documented in this encounter Care Teams Electric Power Machine Operator Relationship Specialty Start Date End Date Consuelo Hobbs PA-C [address] [phone] PCP - General 05/01/19 Madi [place] MD [address] [place] [address] Gastroenterology 10/02/19 documented as of this encounter
--- OUTSIDE RECORDS SUMMARY | 2023-10-29 17:48 | XMS_ITS | Encounter Summary ---
Author Organization [facility] Address [address] [place] [address] Care Team Providers Care Dust Collector Ore Crushing Name Role Phone Consuelo Hobbs PA-C Primary Care Provider Madi Sharp MD Unavailable [phone] Reason for Visit * Reason Comments Injections Labs Only * Episode Based Medications (Routine) - Authorized Specialty Diagnoses / Procedures Referred By Vineet t Referred To Contact Diagnoses Carcinoid tumor of ileum, unspecified whether malignant (HCC) Keiko Hallman MD 80 [facility] [place] [address] [address] Referral ID Status Reason Start Date Expiration Date V isits Requested Visits Authorized [id number] Authorized 04/29/2022 11/27/2023 5 2 Encounter Details Date Type Department Care Team (Late st Contact Info) Description 09/21/2021 9:00 AM EDT Infusion [facility] Cancer [place] at [facility] Outpatient Infusion Center [address] [phone] Ricci Carter MD [address] [place] [address] Keiko Hallman MD [address] [place] [address] [place] [address] Sienna Alaniz, RN [address] [place] [address] Carcinoid tumor of ileum, unspecified whether malignant [...] [facility] Medical Oncology at [address] [phone] Ricci Carter MD [address] [place] [address] 11/13/2023 8:30 AM EDT Infusion [facility] at [facility] Outpatient Infusion Center [address] [phone] Ricci Carter MD [address] [place] [address] Keiko Hallman MD 80 [facility] [place] [address] 11/20/2023 11:00 AM EDT Appointment [facility] [address] [place] [phone] Ricci Carter MD [address] [place], [place] [id number] 11/20/2023 11:30 AM EDT Appointment [facility] Radiology [place] [facility] [address] [place] [phone] Ricci Carter MD [address] [place], [place] [id number] 03/05/2024 11:00 AM EST Consult [facility] Cardiology [address] [place] [phone] Ricci Carter MD [address] [place], [place] [phone] Jamil Ralph MD [address] [facility] [address] [place] [address] 05/30/2024 9:00 AM EST Office Visit [facility] Department of Internal Medicine [facility] [address] [facility] [address] [place], [place] [phone] Consuelo Hobbs PA-C [address] [facility] [address] [place], [place] [phone] Scheduled Orders Name Type Priority Associated Diagnoses Orde r Schedule Vitamin D 1,25 Dihydroxy - [facility] Routine Carcinoid tumor of ileum, unspecified whether malignant Ordered: 09/21/2021 documented as of this encounter Visit Diagnoses Diagnosis Carcinoid tumor of ileum, unspecified whether malignant (HCC)- Primary documented in this encounter Administered Medications Inactive Administered Medications - up to 1 most recent administrations Medication Order MAR Action Action Date Dose Rate Site octreotide (SandoSTATIN LAR) IM injection 40 mg 40 mg, Intramuscular, Once, On Tu09/21/21 at 0930, For 1 dose, Administer IM intragluteal (avoid deltoid administration). For intraMUSCULAR use ONLY. Must be administered immediately after mixing. Given 09/21/2021 8:59 AM EDT 40 mg Right Gluteal Upper Outer Quadrant documented in this encounter Care Teams Dust Collector Ore Crushing Relationship Specialty Start Date End Date Consuelo Hobbs PA-C [address] [address] PCP - General 05/01/19 Madi Sharp MD [address] [place] [address] Gastroenterology 10/02/19 documented as of this encounter
--- OUTSIDE RECORDS SUMMARY | 2023-10-29 17:48 | XMS_ITS | Encounter Summary ---
Author Organization [facility] Address [address] [place] [address] Care Team Providers Care Animal Rescuer Name Role Phone Consuelo Hobbs PA-C Primary Care Provider Madi Sharp MD Unavailable [phone] Encounter Details Date Type Department Care Team ([facility] st Contact Info) Description 03/09/2021 Orders Only [facility] Cancer [place] at [facility] Outpatient Infusion Center [address] [phone] Lilli Peguero APRN [address] [place] [address] Flu vaccine need (Primary Dx) Social History Tobacco Use Types [...] have Coronavirus / COVID-19? No / Unsure 03/09/2021 8:02 AM EST documented as of this encounter Plan of Treatment Upcoming Encounters Date Type Department Care Team (Late st Contact Info) Description 11/13/2023 7:45 AM EDT Office Visit [facility] Medical Oncology at [address] [phone] Ricci Carter MD [address] [place], [place] [phone] 11/13/2023 8:30 AM EDT Infusion [facility] Cancer [place] [facility] Outpatient Infusion Center [address] [phone] Ricci Carter MD [address] [place], [place] [phone] Keiko Hlalman MD 80 [facility] [place] [address] 11/20/2023 11:00 AM EDT Appointment [facility] Radiology [facility] [address] [place] [phone] Ricci Carter MD [address] [place], [place] [phone] 11/20/2023 11:30 AM EDT Appointment [facility] Radiology [facility] [address] [place] [phone] Ricci Carter MD [address] [place], [place] [id number] 03/05/2024 11:[address] [facility] Cardiology [address] [place] [phone] Ricci Carter MD [address] [place] [address] Jamil Ralph MD [address] [place] [address] 05/30/2024 9:00 AM EST Office Visit [facility] Department of Internal Medicine [facility] 1210 [facility] [address] [place] [address] Consuelo Hobbs PA-C [address] [phone] documented as of this encounter Visit Diagnoses Diagnosis Flu vaccine need- Primary documented in this encounter Care Teams Animal Rescuer Relationship Specialty Start Date End Date Consuelo Hobbs PA-C [address] [place] [phone] PCP - General 05/01/19 Madi Sharp MD [address] [place] [address] Gastroenterology 10/02/19 documented as of this encounter
--- OUTSIDE RECORDS SUMMARY | 2023-10-29 17:48 | XMS_ITS | Encounter Summary ---
Author Organization [facility] Address [address] [place] [address] Care Team Providers Care Pastry Sous Chef Name Role Phone Consuelo Hobbs PA-C Primary Care Provider Madi Sharp MD Unavailable [phone] Encounter Details Date Type Department Care Team (Late st Contact Info) Description 05/11/2021 9:00 AM EST Infusion [facility] Cancer [place] at [facility] Outpatient Infusion Center [place] [address] [place] [phone] Ricci Carter MD [address] [place] [address] Keiko Hallman MD 80 [facility] [place] [address] Alissa Sánchez RN 376 [facility] [address] [place] [address] Carcinoid tumor of ileum, unspecified whether malignant [...] Sign Reading Time Taken Comments Blood Pressure 118/73 05/11/2021 9:02 AM EST Pulse 78 05/11/2021 9:02 AM EST Temperature 35.6 ??C (96 ??F) 05/11/2021 9:02 AM EST Respiratory Rate 16 05/11/2021 9:02 AM EST Oxygen Saturation 100% 05/11/2021 9:02 AM EST Inhaled Oxygen Concentration - - Weight 63.5 kg (140 lb 1.6 oz) 05/11/2021 9:02 A M EST Height - - Body Mass Index 24.82 03/26/2021 12:49 PM EST documented in this encounter Plan of Treatment Upcoming Encounters Date Type Department Care Team (Late st Contact Info) Description 11/13/2023 7:45 AM EDT Office Visit [facility] Medical Oncology at [address] [phone] Ricci Carter MD [address] [place] [address] 11/13/2023 8:30 AM EDT Infusion [facility] Cancer [place] at [facility] Outpatient Infusion Center [address] [phone] Ricci Carter MD [address] [place] [address] Keiko Hallman MD 80 [facility] [place] [address] 11/20/2023 11:00 AM EDT Appointment [facility] Radiology [facility] [address] [place] [phone] Ricci Carter MD [address] [place], [place] [phone] 11/20/2023 11:30 AM EDT Appointment [facility] Radiology [place] [facility] [address] [place] [phone] Ricci Carter MD [address] [place], [place] [phone] 03/05/2024 11:00 AM EST Consult [facility] Cardiology [address] [place] [phone] Ricci Carter MD [address] [place], [place] [phone] Jamil Ralph MD [address] [facility] [address] [place] [address] 05/30/2024 9:00 AM EST Office Visit [facility] Department of Internal Medicine [facility] 1210 [facility] [address] [place], [place] [phone] Consuelo Hobbs PA-C 1210 [facility] [address] [place], [place] [phone] documented as of this encounter Visit Diagnoses Diagnosis Carcinoid tumor of ileum, unspecified whether malignant (HCC)- Primary documented in this encounter Administered Medications Inactive Administered Medications - up to 1 most recent administrations Medication Order MAR Action Action Date Dose Rate Site octreotide (SandoSTATIN LAR) IM injection 40 mg 40 mg, Intramuscular, Once, On Mon05/11/21 at 0930, For 1 dose, Administer IM intragluteal (avoid deltoid administration). For intraMUSCULAR use ONLY. Must be administered immediately after mixing. Given 05/11/2021 9:11 AM EST 40 mg Left Gluteal Upper Outer Quadrant documented in this encounter Care Teams Pastry Sous Chef Relationship Specialty Start Date End Date Consuelo Hobbs PA-C [facility] [address] [address] PCP - General 05/01/19 Madi Sharp MD [address] [place] [address] Gastroenterology 10/02/19 documented as of this encounter
--- OUTSIDE RECORDS SUMMARY | 2023-10-29 17:48 | XMS_ITS | Encounter Summary ---
Author Organization Formerly [facility] Address [address] [place] [address] Care Team Providers Care Advertising Writer Name Role Phone Consuelo Hobbs PA-C Primary Care Provider Madi Sharp MD Unavailable [phone] Reason for Referral * Diagnostic Imaging (Routine) - Closed Specialty Diagnoses / Procedures Referred By Contac t Referred To Contact Diagnoses Carcinoid tumor of ileum, unspecified whether malignant (HCC) Procedures MRI Pelvis w w/o contrast Ricci Carter MD [address] [place] Referral ID Status Reason Start Date Expiration Date Visits Re quested Visits Authorized [id number] Closed 06/01/2021 06/02/2022 1 1 * Diagnostic Imaging (Routine) - Closed Specialty Diagnoses / Procedures Referred By Contac t Referred To Contact Diagnoses Carcinoid tumor of ileum, unspecified whether malignant (HCC) Procedures MRI Abdomen w w/o contrast Ricci Carter MD [address] [place] [address] [place] Referral ID Status Reason Start Date Expiration Date Visits Re quested Visits Authorized [id number] Closed 06/01/2021 06/02/2022 1 1 Encounter Details Date Type Department Care Team (Late st Contact Info) Description 06/01/2021 8:25 AM EST Office Visit [facility] [address] [place] [phone] Ricci Carter MD [address] [place] [address] Carcinoid tumor of ileum, unspecified whether malignant (Primary Dx); Encounter for monitoring octreotide therapy; Oncology follow-up encounter Social History Tobacco Use [...] Sign Reading Time Taken Comments Blood Pressure 134/86 06/01/2021 8:35 AM EST Pulse 86 06/01/2021 8:35 AM EST Temperature 36.4 ??C (97.5 ??F) 06/01/2021 8:35 AM ES T Respiratory Rate - - Oxygen Saturation 99% 06/01/2021 8:35 AM EST Inhaled Oxygen Concentration - - Weight 64.4 kg (142 lb) 06/01/2021 8:35 AM EST Height - - Body Mass Index 25.15 03/26/2021 12:49 PM EST documented in this encounter Progress Notes * Ricci Carter MD - 06/01/2021 8:25 AM EST Images from the original note were not included. Medical Oncology/Hematology Progress Note Healthcare Team: Consuelo Hobbs PA-C Subjective: Date of visit is: 06/01/2021 Rody Sotelo is a 51 y.o. female who presents here today for a follow- up visit regarding carcinoid. ONCOLOGY HISTORY: - December 16, 2019, colonoscopy was normal. Interim History: Late April 2020, she vomited blood. Had EGD. Has not recurred since. She quit smoking 2 weeks ago. She is not drinking alcohol. She started omeprazole. No changes in diarrhea. She reports no flushing. She reports no abdominal pain. She has not required short acting octreotide. Taking colestipol at least once daily, sometimes twice daily. Taking loperamide 6-12 doses per day. Moving bowels 4 times/day, soft. No side effects from Sandostatin LAR. She denies pain. Pain: 0 REVIEW OF SYSTEMS: Review of Systems Constitutional: Positive for fatigue. Negative for appetite change, chills, diaphoresis, fever and unexpected weight change. HENT: Negative for mouth sores and nosebleeds. Respiratory: Negative for chest tightness, cough, shortness of breath and wheezing. Cardiovascular: Negative for chest pain and leg swelling. Gastrointestinal: Negative for abdominal distention, abdominal pain, blood in stool, nausea and vomiting. Endocrine: Negative for hot flashes. Denies flushing Musculoskeletal: Negative for back pain. Skin: Negative for itching and rash. Neurological: Positive for headaches (migraines, stable). Negative for dizziness and light-headedness. Hematological: Negative [...] Disp: 120 tablet, Rfl: 5 ??? CREON [address] Particles capsule, 36,000 Units [...] the skin daily., Disp: , Rfl: ??? octreotide (SandoSTATIN [...] morning before breakfast., Disp:, Rfl: ??? rizatriptan ([employer]) 10 MG disintegrating tablet, DISSOLVE ONE TABLET [...] ENDOSCOPY UPPER; Surgeon: Madi Sharp MD; Location: [facility]; Service: Gastroenterology; Laterality: N/A; ??? HEMICOLECTOMY [...] ??? Years since quittin.0 Smokeless Tobacco Never Used Social History Substance and Sexual Activity Alcohol Use Not Currently Social History Substance and Sexual Activity Drug Use Yes ??? Types: Marijuana Objective: Wt Readings from Last 2 Encounters: 06/01/21 64.4 kg (142 lb) 05/11/21 63.5 kg (140 lb 1.6 oz) Physical Exam Vitals: 06/01/21 0835 BP: 134/86 BP Location: Right arm Pulse: 86 Temp: 97.5 ??F (36.4 ??C) TempSrc: Temporal SpO2: 99% Weight: 64.4 kg (142 lb) Performance status: ECOG (0) Fully active, [...] Thought content normal. Judgment: Judgment normal. Results: Upper GI note reviewed Lab Results Component Value Date WBC 8.7 01/05/2021 HGB 13.4 01/05/2021 HCT 41.7 01/05/2021 MCV 92 01/05/2021 PLT 221 01/05/2021 Lab Results Component Value Date NEUTROABS 6.50 01/05/2021 Lab Results Component Value Date ALT 11 01/05/2021 AST 18 01/05/2021 ALKPHOS 66 01/05/2021 BILITOT 0.4 01/05/2021 Lab Results Component Value Date GLUC 88 01/05/2021 CALCIUM 9.6 01/05/2021 NA 139 01/05/2021 K 4.2 01/05/2021 CO2 26 01/05/2021 CL 104 01/05/2021 BUN 10 01/05/2021 CREAT 0.66 01/05/2021 Assessment/Plan: 1. Carcinoid, [id number] A. Diagnosed July 11, 2013 1. S/p [...] for a follow- up visit regarding carcinoid. On April 22, 2021, Rody underwent upper GI endoscopy for hematemesis, which revealed a normal esophagus, atrophic gastritis and normal examined duodenum. Stomach biopsy revealed reactive gastropathy with focal complete intestinal metaplasia and negative for H. pylori organisms and dysplasia. Repeat EGD recommended in 3 years and continued PPI therapy was recommended. Overall, Reza remains clinically stable with respect to her carcinoid. Her diarrhea has improved. This may be on the basis of increasing granisetron dose. Her Loperamide requirement has decreased. She continues to tolerate Sandostatin LAR well and without any toxicities. Continue Sandostatin LAR every 3 weeks. Continue remainder of other supportive medications. She is trying to connect with the dietitian. She has an echocardiogram scheduled for later today. I have arranged restaging MRI of abdomen and pelvis to be performed in July. I congratulated her on her smoking cessation. ORDERS 1. Carcinoid tumor of ileum, unspecified whether malignant - MRI Abdomen w w/o contrast; Future - MRI Pelvis w w/o contrast; Future - Complete Blood Count, with Differential; Future - Basic Metabolic Panel; Future - Hepatic Function Panel; Future - Chromogranin A; Future - Vitamin D, 25-Hydroxy - [facility]; Future Orders Placed This Encounter Procedures ??? MRI Abdomen w w/o contrast Standing Status: Future Number of Occurrences: 1 Standing Expiration Date: 06/01/2022 Order Specific Question: Reason for Exam: Answer: re- staging carcinoid, assess for change Order Specific Question: Release to Patient Answer: Immediate Release ??? MRI Pelvis w w/o contrast Standing Status: Future Number of Occurrences: 1 Standing Expiration Date: 06/01/2022 Order Specific Question: Reason for Exam: Answer: re- staging carcinoid, assess for change Order Specific Question: Release to Patient Answer: Immediate Release ??? Complete Blood Count, with Differential Standing Status: Future Number of Occurrences: 1 Standing Expiration Date: 06/01/2022 Order Specific Question: Release to Patient Answer: Immediate Release ??? Basic Metabolic Panel Standing Status: Future Number of Occurrences: 1 Standing Expiration Date: 06/01/2022 Order Specific Question: Release to Patient Answer: Immediate Release ??? Hepatic Function Panel Standing Status: Future Number of Occurrences: 1 Standing Expiration Date: 06/01/2022 Order Specific Question: Release to Patient Answer: Immediate Release ??? Chromogranin A Standing Status: Future Standing Expiration Date: 06/01/2022 Order Specific Question: Release to Patient Answer: Immediate Release ??? Vitamin D, 25-Hydroxy - [facility] Standing Status: Future Number of Occurrences: 1 Standing Expiration Date: 06/01/2022 Order Specific Question: Release to Patient Answer: Immediate Release ??? Chromogranin A, LC/MS/MS Standing Status: Future Number of Occurrences: 1 Standing Expiration Date: 06/01/2022 Order Specific Question: Release to Patient Answer: Immediate Release The patient will return in 12 weeks. There are no Patient Instructions on file for this visit. documented in this encounter Plan of Treatment Upcoming Encounters Date Type Department Care Team (Late st Contact Info) Description 11/13/2023 7:45 AM EDT Office Visit [facility] [address] [phone] Ricci Crater MD [address] [place] [address] 11/13/2023 8:30 AM EDT Infusion [facility] [address] [phone] Ricci Carter MD [address] [place] [phone] Keiko Hallman MD [address] [facility] [place] [address] 11/20/2023 11:00 AM EDT Appointment [facility] [address] [place] [phone] Ricci Carter MD [address] [place], [place] [phone] 11/20/2023 11:30 AM EDT Appointment [facility] [address] [place] [phone] Ricci Carter MD [address] [place] [id number] 03/05/2024 11:00 AM EST Consult [facility] [address] [place] [phone] Ricci Carter MD [address] [place] [address] Jamil Ralph MD [address] [facility] [address] [place] [address] 05/30/2024 9:00 AM EST Office Visit [facility] Department of Internal Medicine [facility] [address] [facility] [address] [place], [place] [phone] Consuelo Hobbs PA-C [address] [facility] [address] [place], [place] [phone] Scheduled Orders Name Type Priority Associated Diagnoses Orde r Schedule Vitamin D, 25-Hydroxy - [facility] Lab Routine Carcinoid tumor of ileum, unspecified whether malignant Expected: 06/01/2021, Expires: 06/01/2022 documented as of this encounter Procedures Procedure Name Priority Date/Time Associated Diagnosis Comments MRI ABDOMEN W W/O CONTRAST Routine 10/12/2021 4:01 PM EDT Carcinoid tumor of ileum, unspecified whether malignant MRI PELVIS W W/O CONTRAST Routine 10/12/2021 4:01 PM EDT Carcinoid tumor of ileum, unspecified whether malignant TEST IN [facility]- NO SPECIMEN RECEIVED Routine 08/03/2021 12:00 AM EDT COMPLETE BLOOD COUNT, WITH DIFFERENTIAL Routine 08/03/2021 12:00 AM EDT Carcinoid tumor of ileum, unspecified whether malignant HEPATIC FUNCTION PANEL Routine 08/03/2021 12:00 AM EDT Carcinoid tumor of ileum, unspecified whether malignant BASIC METABOLIC PANEL Routine 08/03/2021 12:00 AM EDT Carcinoid tumor of ileum, unspecified whether malignant CHROMOGRANIN A, LC/MS/MS Routine 06/01/2021 12:00 AM EST Carcinoid tumor of ileum, unspecified whether malignant documented in this encounter Results * MRI Pelvis w w/o contrast (10/12/2021 4:01 PM EDT) Anatomical Region Laterality Modality Pelvis Magnetic Resonan ce 10/07/2021 10:0 0 AM EDT 10/07/2021 10:00 AM EDT Impressions 10/12/2021 4:01 PM EDT No significant interval change from prior with a stable 2.5 cm soft tissue mass in the central mesentery and a prominent 0.8 cm short axis mesenteric node. No new or increasing adenopathy. Thank you for referring your patient to us, KATHRYN GREEN M.D. [id number] (Electronically Signed - 10/12/2021 16:01) Narrative 10/12/2021 4:01 PM EDT EXAMINATION: MR ABDOMEN AND PELVIS WITHOUT AND WITH CONTRAST CLINICAL INFORMATION: Carcinoid ?? COMPARISON: MR pelvis 01/18/2021 TECHNIQUE: MRI of the abdomen and pelvis [...] ? GASTROINTESTINAL TRACT: Unremarkable. ?? LYMPH NODES: A 0.8 cm short axis mesenteric node, 1702:103 appears unchanged from prior. A enhancing soft tissue mass in the central mesentery measuring approximately 2.5 x 1.8 cm, previously 2.5 x 1.8 cm not significantly changed. No new or increasing adenopathy. VASCULAR: Unremarkable ABDOMINAL WALL: Unremarkable. ?? REPRODUCTIVE ORGANS: Uterus and ovaries are unremarkable. ?? BLADDER: Unremarkable PELVIC FREE FLUID: No free fluid or ascites. OSSEOUS STRUCTURES: Unremarkable. Procedure Note Kathryn Green MD - 10/12/2021 EXAMINATION: MR ABDOMEN AND PELVIS WITHOUT AND WITH CONTRAST CLINICAL INFORMATION: Carcinoid COMPARISON: MR pelvis 01/18/2021 TECHNIQUE: MRI of the abdomen and pelvis before and after the IV administration of 7mL of Gadavist was obtained using routine sequences. FINDINGS: LUNG BASES: The visualized lung bases are unremarkable. KIDNEYS: Benign-appearing T2 hyperintense right renal cyst, no imaging follow-up recommended. GALLBLADDER: Surgically absent. LIVER AND BILIARY TREE: Loss of signal on opposed phase imagingcompatible with hepatic steatosis. No suspicious liver lesion. No intra orextrahepatic biliary duct dilatation. PANCREAS: Unremarkable SPLEEN: Unremarkable ADRENAL GLANDS: Unremarkable GASTROINTESTINAL TRACT: Unremarkable. LYMPH NODES: A 0.8 cm short axis mesenteric node, 1702:103 appearsunchanged from prior. A enhancing soft tissue mass in the central mesenterymeasuring approximately 2.5 x 1.8 cm, previously 2.5 x 1.8 cm not significantlychanged. No new or increasing adenopathy. VASCULAR: Unremarkable ABDOMINAL WALL: Unremarkable. REPRODUCTIVE ORGANS: Uterus and ovaries are unremarkable. BLADDER: Unremarkable PELVIC FREE FLUID: No free fluid or ascites. OSSEOUS STRUCTURES: Unremarkable. IMPRESSION: No significant interval change from prior with a stable 2.5 cm softtissue mass in the central mesentery and a prominent 0.8 cm short axismesenteric node. No new or increasing adenopathy. Thank you for referring your patient to us, KATHRYN GREEN M.D. [id number] (Electronically Signed - 10/12/2021 16:01) Ricci Carter MD IMG MRI ORDERABLES * MRI Abdomen w w/o contrast (10/12/2021 4:01 PM EDT) Anatomical Region Laterality Modality Abdomen Magnetic Resonan ce 10/07/2021 9:30 AM EDT 10/07/2021 9:30 AM EDT Impressions 10/12/2021 4:01 PM EDT No significant interval change from prior with a stable 2.5 cm soft tissue mass in the central mesentery and a prominent 0.8 cm short axis mesenteric node. No new or increasing adenopathy. Thank you for referring your patient to us, KATHRYN GREEN M.D. [id number] (Electronically Signed - 10/12/2021 16:01) Narrative 10/12/2021 4:01 PM EDT EXAMINATION: MR ABDOMEN AND PELVIS WITHOUT AND WITH CONTRAST CLINICAL INFORMATION: Carcinoid ?? COMPARISON: MR pelvis 01/18/2021 TECHNIQUE: MRI of the abdomen and pelvis [...] ? GASTROINTESTINAL TRACT: Unremarkable. ?? LYMPH NODES: A 0.8 cm short axis mesenteric node, 1702:103 appears unchanged from prior. A enhancing soft tissue mass in the central mesentery measuring approximately 2.5 x 1.8 cm, previously 2.5 x 1.8 cm not significantly changed. No new or increasing adenopathy. VASCULAR: Unremarkable ABDOMINAL WALL: Unremarkable. ?? REPRODUCTIVE ORGANS: Uterus and ovaries are unremarkable. ?? BLADDER: Unremarkable PELVIC FREE FLUID: No free fluid or ascites. OSSEOUS STRUCTURES: Unremarkable. Procedure Note Kathryn Green MD - 10/12/2021 EXAMINATION: MR ABDOMEN AND PELVIS WITHOUT AND WITH CONTRAST CLINICAL INFORMATION: Carcinoid COMPARISON: MR pelvis 01/18/2021 TECHNIQUE: MRI of the abdomen and pelvis before and after the IV administration of 7mL of Gadavist was obtained using routine sequences. FINDINGS: LUNG BASES: The visualized lung bases are unremarkable. KIDNEYS: Benign-appearing T2 hyperintense right renal cyst, no imaging follow-up recommended. GALLBLADDER: Surgically absent. LIVER AND BILIARY TREE: Loss of signal on opposed phase imagingcompatible with hepatic steatosis. No suspicious liver lesion. No intra orextrahepatic biliary duct dilatation. PANCREAS: Unremarkable SPLEEN: Unremarkable ADRENAL GLANDS: Unremarkable GASTROINTESTINAL TRACT: Unremarkable. LYMPH NODES: A 0.8 cm short axis mesenteric node, 1702:103 appearsunchanged from prior. A enhancing soft tissue mass in the central mesenterymeasuring approximately 2.5 x 1.8 cm, previously 2.5 x 1.8 cm not significantlychanged. No new or increasing adenopathy. VASCULAR: Unremarkable ABDOMINAL WALL: Unremarkable. REPRODUCTIVE ORGANS: Uterus and ovaries are unremarkable. BLADDER: Unremarkable PELVIC FREE FLUID: No free fluid or ascites. OSSEOUS STRUCTURES: Unremarkable. IMPRESSION: No significant interval change from prior with a stable 2.5 cm softtissue mass in the central mesentery and a prominent 0.8 cm short axismesenteric node. No new or increasing adenopathy. Thank you for referring your patient to us, KATHRYN GREEN M.D. [id number] (Electronically Signed - 10/12/2021 16:01) Ricci Carter MD IMG MRI ORDERABLES * Test In Question- No Specimen Received (08/03/2021 12:00 AM EDT) Pathologist [facility] Comment [employer] Comment:No specimen(s) was r eceived for the following order(s). Test(s) Ordered: 6,399 [employer] Specimen(s) Required: LAVENDER TOP TUBE [employer] Comment [employer] Comment: REQUESTED INFORMATION AUTHORIZED SIGNATURE TO PREVENT FURTHER DELAYS IN TESTING, PLEASE COMPLETE INFORMATION ABOVE AND FAX TO [phone] OR EMAIL TO [email or web address] TO RESOLVE THIS ORDER. 08/03/2021 08/03/2021 4:2 6 PM EDT Ricci Carter MD LAB BLOOD ORDERABLES [facility] [employer] [address] [place] [address], [place] [phone] * Hepatic Function Panel (08/03/2021 12:00 AM EDT) Protein, Total 6.5 6.1 - 8.1 g/dL [facility] [facility] [place] [address] Albumin 4.2 3.6 - 5.1 g/dL [facility] [place] [address] Globulin 2.3 1.9 - 3.7 g/dL (calc) [facility] Albumin/Globulin Ratio 1.8 1.0 - 2.5 (calc) [facility], [facility] [place] [address] Bilirubin, Total 0.3 0.2 - 1.2 mg/dL [facility] [place] [facility] Bilirubin, Direct 0.1 < OR = 0.2 mg/dL [facility] Bilirubin, Indirect 0.2 0.2 - 1.2 mg/dL (calc) [facility], [facility] [place] [address] Alkaline Phosphatase 67 31 - 125 U/L [facility], [facility] [place] Aspartate Aminotrans (AST) 24 10 - 35 U/L [facility], [facility] [place] [address] Alanine Aminotrans (ALT) 22 6 - 29 U/L [facility], [facility] [place] [address] Blood specimen (specimen) Blood specimen / Unknown 08/03/2021 08/03/2021 4:26 PM EDT Ricci Carter MD LAB BLOOD ORDERABLES [facility], [facility] [address] [place] [address] * Basic Metabolic Panel (08/03/2021 12:00 AM EDT) Glucose 91 65 - 99 mg/dL [facility], [facility] [place] [address] Comment: ? Fasting reference interval Blood Urea Nitrogen (BUN) 14 7 - 25 mg/dL [facility], [facility] [place] [address] Creatinine 0.77 0.50 - 1.10 mg/dL [facility], [facility] [place] [address] eGFR Non- 91 > OR = 60 mL/min/1. 73m2 [facility], [facility] [place] eGFR 105 > OR = 60 mL/min/1. 73m2 [facility], [facility] [place] BUN/Creatinine Ratio NOT APPLICABLE 6 - 22 (calc) [facility], [facility] [place] Sodium 140 135 - 146 mmol/L [facility] [place] [facility] Potassium 4.2 3.5 - 5.3 mmol/L [facility] [place] [facility] Chloride 106 98 - 110 mmol/L [facility] [place] [facility] CO2 27 20 - 32 mmol/L [facility] Calcium 9.2 8.6 - 10.2 mg/dL [facility] [place] [facility] Blood specimen (specimen) Blood specimen / Unknown 08/03/2021 08/03/2021 4:26 PM EDT Ricci Carter MD LAB BLOOD ORDERABLES [facility], [facility] [address] [place] [address] * Complete Blood Count, with Differential (08/03/2021 12:00 AM EDT) White Blood Cell Count TNP [employer], [facility] [place] [address] Comment: TEST NOT PERFORMED No suitable specimen received. Please review the test requirements at [email or web address] Blood specimen (specimen) Blood specimen / Unknown 08/03/2021 08/03/2021 4:26 PM EDT Ricci Carter MD LAB BLOOD ORDERABLES Performing Organization Address City/[facility]/ZIP Co de Phone Number [facility] [employer], [facility] [address] [place] [address] * Chromogranin A, LC/MS/MS (06/01/2021 12:00 AM EST) Chromogranin A, LC/MS/MS 310 ADULTS: <311 ng/mL [facility]/ [facility], Comment: The sample type for this test [...] analytical performance characteristics have been determined by [employer] [facility]. It has not been cleared or approved by FDA. This assay has been validated pursuant to the CLIA regulations and is used for clinical purposes. Effective July 20, 2020, the Liquid Chromatography Mass Spectrometry method replaced the previous IGNACIO method. For patients being followed by serial Chromogranin A testing, please order test code 50881, Chromogranin A, Rebaseline, which will be available through July 16, 2021, to assist with transition to the new assay. 06/01/2021 08/04/2021 6:2 2 AM EDT Ricci Carter MD LAB BLOOD ORDERABLES [facility] [employer], [address] [place] [address] documented in this encounter Visit Diagnoses Diagnosis Carcinoid tumor of ileum, unspecified whether malignant (HCC)- Primary Encounter for monitoring octreotide therapy Oncology follow-up encounter documented in this encounter Care Teams Advertising Writer Relationship Specialty Start Date End Date Consuelo Hobbs PA-C [address] [facility] [address] [place] [address] PCP - General 05/01/19 Maid Sharp MD [address] [address] Gastroenterology 10/02/19 documented as of this encounter
--- OUTSIDE RECORDS SUMMARY | 2023-10-29 17:48 | XMS_ITS | Encounter Summary ---
Author Organization [facility] Address [address] [place] [address] Care Team Providers Care Cook Ship Name Role Phone Consuelo Hobbs PA-C Primary Care Provider Madi Sharp MD Unavailable [phone] Encounter Details Date Type Department Care Team ([facility] st Contact Info) Description 04/22/2021 1:27 PM EST Anesthesia Event CTGI ENDO PROC GLAST [address] [place] [phone] Caden Stafford MD [address] [place] [address] Anesthesia Record Procedure Summary Procedure Name Responsible Anesthesiologist Anesthesia Start Time Anesthesia Stop Time ENDOSCOPY UPPER Events Date Time Event Comment 04/22/2021 [id number] Case Charted on Paper Which portion(s) of your chart were completed on paper? {Anesthesia Record Portion:[id number]} Why did you use paper? {Anesthesia Paper Reason:[id number]} Meds * Agents No agents on file. [...] PM EST documented as of this encounter OR Notes * Anesthesia Preprocedure Evaluation - Caden Stafford MD - 04/22/2021 1:15 PM EST Department of Anesthesiology Pre-Procedure Evaluation Patient Name: Rody Sotelo : 1970 Admission Date: 04/22/2021 Attending Provider: Madi Sharp MD Date of Service: 04/22/2021 Scheduled Procedure: ENDOSCOPY UPPER, N/A Pre-operative Diagnosis: Epigastric pain [R10.13] Hematemesis, presence of nausea not specified [K92.0] Relevant Problems No relevant active problems Allergies Allergen Reactions ??? Levaquin [Levofloxacin] Myalgia/Myositis/Arthralgia/Arthritis ??? Cefaclor GI Intolerance/Nausea/Vomiting ??? Erythromycin GI Intolerance/Nausea/Vomiting STOP-Bang Score: 0 (04/22/2021 1:15 PM) Patient summary reviewed. Nursing notes reviewed. ECG reviewed. Pre-procedure vital signs reviewed. NPO status verified. Respiratory - negative ROS Positives: shortness of breath Cardiovascular - negative cardiac ROS Positives: Exercise tolerance: >4 METS Neuromuscular Positives: headaches GI/Hepatic/Renal Endo/MET Hem/Lymph Skel/Skin Psych HEENT Obstetrics Other Syndromes Physical Exam Airway Mallampati I TM distance >3 FB Neck ROM: full Dentition - no notable dental history Cardiovascular - cardiovascular exam normal normal rate Rhythm: regular Pulmonary - pulmonary exam normal breath sounds clear to auscultation Abdominal Past Medical History: Diagnosis Date ??? Abdominal pain 04/13/2020 ??? Abdominal wall pain in right flank 08/19/2015 ??? Cancer (HCC) ??? IBS (irritable bowel syndrome) ??? Migraine 11/25/2019 ??? Migraines ??? PCOS (polycystic ovarian syndrome) 11/25/2019 ??? PVC (premature ventricular contraction) 11/25/2019 Past Surgical History: Procedure Laterality Date ??? ENDOSCOPY ??? HEMICOLECTOMY Right ??? TONSILECTOMY, ADENOIDECTOMY, BILATERAL [...] on file Social Connections: Not on file Ht Readings from Last 1 Encounters: 03/26/21 1.6 m (5' 3) Wt Readings from Last 1 Encounters: 04/20/21 60 kg (132 lb 4.4 oz) There is no height or weight on file to calculate BMI. White Blood Cell Count Date Value Ref Range Status 01/05/2021 8.7 4.0 - 11.0 Thou/uL Final Hemoglobin Date Value Ref Range Status 01/05/2021 13.4 11.7 - 15.7 g/dL Final Hematocrit Date Value Ref Range Status 01/05/2021 41.7 35.0 - 47.0 % Final Platelet Count Date Value Ref Range Status 01/05/2021 221 150 - 450 Thou/uL Final Sodium Date Value Ref Range Status 01/05/2021 139 135 - 146 mmol/L Final Potassium Date Value Ref Range Status 01/05/2021 4.2 3.5 - 5.3 mmol/L Final CO2 Date Value Ref Range Status 01/05/2021 26 20 - 32 mmol/L Final Chloride Date Value Ref Range Status 01/05/2021 104 98 - 110 mmol/L Final Glucose Date Value Ref Range Status 01/05/2021 88 65 - 99 mg/dL Final Comment: Fasting reference interval Blood Urea Nitrogen (BUN) Date Value Ref Range Status 01/05/2021 10 7 - 25 mg/dL Final Creatinine Date Value Ref Range Status 01/05/2021 0.66 0.50 - 1.10 mg/dL Final Calcium Date Value Ref Range Status 01/05/2021 9.6 8.6 - 10.2 mg/dL Final No results found for: ABORH, TYPE, SCREEN NPO Status: Date of Last Liquid Consumption: 04/22/21 Time of Last Liquid Consumption: 0600 Date of Last Solid Consumption: 04/21/21 Anesthesia Plan ASA Score: ASA 2 Consent: The anesthetic plan and associated risks was discussed with patient. Anesthesia Plan: MAC anesthesia The plan was discussed with the following care providers: PERINATAL BREASTFEEDING ASSISTANT. Post-Operative Pain Management: Routine analgesia & antiemetics post-op Attending Note I personally evaluated and examined the patient prior to the intra-operative phase of care. 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 On stable maintenance octreotide. Occ get diarrhea, but never had other sx of carcinoid syndrome (flushing, sob, hypotension). Caden Stafford MD documented in this encounter Plan of Treatment Upcoming Encounters Date Type Department Care Team (Late st Contact Info) Description 11/13/2023 7:45 AM EDT Office Visit [facility] [place] [facility] at [address] [phone] Ricci Carter MD [address] [place] [address] 11/13/2023 8:30 AM EDT Infusion [facility] [place] at [facility] Outpatient Infusion Center [address] [phone] Ricci Carter MD [address] [place] [phone] Keiko Hallman MD 80 [facility] [place] [address] 11/20/2023 11:00 AM EDT Appointment [facility] Radiology [facility] [facility] [address] [place] [phone] Ricci Carter MD [address] [place] [address] 11/20/2023 11:30 AM EDT Appointment [facility] Radiology [facility] [facility] 35 [place] [phone] Ricci Carter MD [address] [place], [place] [phone] 03/05/2024 11:00 AM EST Consult [facility] Medical Group Cardiology [place] [address] [facility] [address] [place] [phone] Ricci Carter MD [address] [place] [phone] Jamil Ralph MD [address] [facility] [address] [place], [place] [phone] 05/30/2024 9:00 AM EST Office Visit [facility] Department of Internal Medicine [facility] [address] [address] Consuelo Hobbs PA-C [address] [phone] documented as of this encounter Visit Diagnoses Not on filedocumented in this encounter Care Teams Cook Ship Relationship Specialty Start Date End Date Consuelo Hobbs PA-C [address] [place] [phone] PCP - General 05/01/19 Madi Sharp MD [address] [place] [address] Gastroenterology 10/02/19 documented as of this encounter
--- OUTSIDE RECORDS SUMMARY | 2023-10-29 17:48 | XMS_ITS | Encounter Summary ---
Author Organization [facility] Address [address] [place] [address] Care Team Providers Care Ambulance Driver Paramedic Name Role Phone Consuelo Hobbs PA-C Primary Care Provider Madi Sharp MD Unavailable [phone] Encounter Details Date Type Department Care Team (Latest Contact Info) Description 06/01/2021 Travel Social History Tobacco Use Types Packs/Day [...] [facility] Cancer [place] [facility] at [address] [phone] Ricci Carter MD [address] [place] [address] 11/13/2023 8:30 AM EDT Infusion [facility] Cancer [place] at [facility] Outpatient Infusion Center [address] [address] Ricci Carter MD [address] [place], [place] [phone] Keiko Hallman MD 80 [facility] [place] [address] 11/20/2023 11:00 AM EDT Appointment [facility] Radiology [facility] Mammography 35 [place] [phone] Ricci Carter MD [address] [place] [address] 11/20/2023 11:30 AM EDT Appointment [facility] Radiology [facility] Mammography 35 [place] [phone] Ricci Carter MD [address] [place] [address] 03/05/2024 11:00 AM EST Consult [facility] Medical Group Cardiology [place] [address] [facility] [address] [place] [phone] Ricci Carter MD [address] [place] [address] Jamil Ralph MD [address] [facility] [address] [place] [address] 05/30/2024 9:00 AM EST Office Visit [facility] Department of Internal Medicine [facility] [address] [facility] [address] [place] [phone] Consuelo Hobbs PA-C 1210 [facility] 109 [place] [address] documented as of this encounter Visit Diagnoses Not on filedocumented in this encounter Care Teams Ambulance Driver Paramedic Relationship Specialty Start Date End Date Consuelo Hobbs PA-C [address] [phone] PCP - General 05/01/19 Madi Sharp MD [address] [place] [address] Gastroenterology 10/02/19 documented as of this encounter
--- OUTSIDE RECORDS SUMMARY | 2023-10-29 17:48 | XMS_ITS | Encounter Summary ---
Author Organization [facility] Address [address] [place] [address] Care Team Providers Care Yolk Spray Drier Name Role Phone Consuelo Hobbs PA-C Primary Care Provider Madi Sharp MD Unavailable [phone] Encounter Details Date Type Department Care Team ([facility] st Contact Info) Description 05/25/2021 Telephone HH NUTR [facility] OPD CA HFD 85 [facility] [address] [place] [address] Suma Tran, RD 80 [place] [address] Social History Tobacco Use Types Packs/Day Years [...] encounter Miscellaneous Notes * Telephone Encounter - Suma Tran RD - 05/25/2021 9:39 AM EST Return telephone call placed to pt after receiving voicemail message from her. Upon calling today, I received her voicemail. I left a message with return contact information with dates and times of availability. documented in this encounter Plan of Treatment Upcoming Encounters Date Type Department Care Team (Late st Contact Info) Description 11/13/2023 7:45 AM EDT Office Visit [facility] Medical Oncology at [address] [phone] Ricci Carter MD [address] [place] [address] 11/13/2023 8:30 AM EDT Infusion [facility] Cancer [place] at [facility] Outpatient Infusion Center [address] [phone] Ricci Carter MD [address] [place] [address] Keiko Hallman MD 80 [facility] [place] [address] 11/20/2023 11:00 AM EDT Appointment [facility] Radiology [place] Mammography [address] [place] [phone] Ricci Carter MD [address] [place] [address] 11/20/2023 11:30 AM EDT Appointment [facility] Radiology [facility] Mammography [address] [place] [phone] Ricci Carter MD [address] [place] [address] 03/05/2024 11:00 AM EST Consult [facility] Cardiology [place] [address] [facility] [address] [place] [address] Ricci Carter MD [address] [place] [address] Jamil Ralph MD [address] [place] [facility] [address] [place] [address] 05/30/2024 9:00 AM EST Office Visit [facility] Department of Internal Medicine [facility] 1210 [facility] [address] [place] [address] Consuelo Hobbs PA-C 1210 [facility] 109 [place] [address] documented as of this encounter Visit Diagnoses Not on filedocumented in this encounter Care Teams Yolk Spray Drier Relationship Specialty Start Date End Date Consuelo Hobbs PA-C 1210 [facility] 109 [place] [address] PCP - General 05/01/19 Madi Sharp MD [address] [address] Gastroenterology 10/02/19 documented as of this encounter
--- OUTSIDE RECORDS SUMMARY | 2023-10-29 17:48 | XMS_ITS | Encounter Summary ---
Author Organization [facility] Address [address] [place] [address] Care Team Providers Care Clinical Team Lead Name Role Phone Consuelo Hobbs PA-C Primary Care Provider Madi Sharp MD Unavailable [phone] Encounter Details Date Type Department Care Team (Latest Contact Info) Description 09/21/2021 Travel Social History Tobacco Use Types Packs/Day [...] Office Visit [facility] Cancer [place] [facility]cology at [address] [phone] Ricci Carter MD [address] [place] [address] 11/13/2023 8:30 AM EDT Infusion [facility] Cancer [place] at [facility] Outpatient Infusion Center [place] [address] [place] [address] Ricci Carter MD [address] [place] [address] Keiko Hallman MD 80 [facility] [place] [address] 11/20/2023 11:00 AM EDT Appointment [facility] Radiology [facility] Mammography 35 [place] [phone] Ricci Carter MD [address] [place] [address] 11/20/2023 11:30 AM EDT Appointment [facility] Radiology [facility] Mammography 35 [place] [phone] Ricci Carter MD [address] [place] [address] 03/05/2024 11:00 AM EST Consult [facility] Medical Group Cardiology [place] [address] [facility] [address] [place] [phone] Ricci Carter MD [address] [place] [address] Jamil Ralph MD [address] [place] [facility] [address] [place] [address] 05/30/2024 9:00 AM EST Office Visit [facility] Department of Internal Medicine [facility] [address] [phone] Consuelo Hobbs PA-C [address] [phone] documented as of this encounter Visit Diagnoses Not on filedocumented in this encounter Care Teams Clinical Team Lead Relationship Specialty Start Date End Date Consuelo Hobbs PA-C [address] [phone] PCP - General 05/01/19 Madi Sharp MD [address] [place] [address] Gastroenterology 10/02/19 documented as of this encounter
--- OUTSIDE RECORDS SUMMARY | 2023-10-29 17:48 | XMS_ITS | Encounter Summary ---
Author Organization [facility] Address [address] [place] [address] Care Team Providers Care Ict Programmer Name Role Phone Consuelo Hobbs PA-C Primary Care Provider Madi Sharp MD Unavailable [phone] Reason for Visit * Cardiovascular Test (Routine) - Closed Specialty Diagnoses / Procedures Referred By Vineet t Referred To Contact Diagnoses Carcinoid tumor of ileum, unspecified whether malignant (HCC) Diarrhea, unspecified type Carcinoid tumor of ileum (HCC) Procedures Echocardiogram Comprehensive Ricci Carter MD [address] [place] [address] Referral ID Status Reason Start Date Expiration Date Visits Re quested Visits Authorized [id number] Closed 01/05/2021 01/06/2022 1 1 Encounter Details Date Type Department Care Team (Latest Contact Info) Description 06/01/2021 11:30 AM EST Ancillary Procedure [facility] Cardiology [address] [place] [address] Ricci Carter MD [address] [place], [place] [phone] Carcinoid tumor of ileum, unspecified whether malignant; Diarrhea, unspecified type; Carcinoid tumor of ileum [...] Description 11/13/2023 7:45 AM EDT Office Visit [facility] Medical Oncology at [address] [phone] Ricci Carter MD [address] [place] [address] 11/13/2023 8:30 AM EDT Infusion [facility] at [facility] Outpatient Infusion Center [address] [phone] Ricci Carter MD [address] [place] [address] Keiko Hallman MD 80 [facility] [place] [address] 11/20/2023 11:00 AM EDT Appointment [facility] Radiology Sh[facility] Mammography 35 [place] [phone] Ricci Carter MD [address] [place] [address] 11/20/2023 11:30 AM EDT Appointment [facility] Radiology [place] Mammography [address] [facility] [place] [phone] Ricci Carter MD [address] [place] [address] 03/05/2024 11:00 AM EST Consult [facility] Cardiology [address] [place] [phone] Ricci Carter MD [address] [place] [phone] Jamil Ralph MD [address] [place] [address] 05/30/2024 9:00 AM EST Office Visit [facility] Department of Internal Medicine [facility] 1210 [facility] [address] [place], [place] [phone] Consuelo Hobbs PA-C 1210 [facility] [address] [place] [address] documented as of this encounter Procedures Procedure Name Priority Date/Time Associated Diagnosis Comments ECHOCARDIOGRAM (TTE) COMPREHENSIVE (CONTRAST PRN) Routine 06/01/2021 11:26 AM EST Carcinoid tumor of ileum, unspecified whether malignant Diarrhea, unspecified type Carcinoid tumor of ileum documented in this encounter Results * ECHOCARDIOGRAM COMPREHENSIVE (06/01/2021 11:26 AM EST) Anatomical Region Laterality Modality Ultrasound 06/01/2021 12:3 0 PM EST Narrative 06/01/2021 12:30 PM EST To view the final report click the scan hyperlink below. Scanned documents are not accessible through [employer]. Please contact Medical Records for a copy of your scanned result. Procedure Note Patrick Steel MD - 06/01/2021 To view the final report click the scan hyperlink below. Scanned documents are not accessible through [employer]. Please contactMedical Records for a copy of your scanned result. Ricci Carter MD CV ECHO ORDERABLES documented in this encounter Visit Diagnoses Diagnosis Carcinoid tumor of ileum, unspecified whether malignant (HCC) Diarrhea, unspecified type documented in this encounter Care Teams Ict Programmer Relationship Specialty Start Date End Date Consuelo Hobbs PA-C [address] [place] [address] PCP - General 05/01/19 Madi Sharp MD [address] [address] Gastroenterology 10/02/19 documented as of this encounter
--- OUTSIDE RECORDS SUMMARY | 2023-10-29 17:48 | XMS_ITS | Encounter Summary ---
Author Organization [facility] Address [address] [place] [address] Care Team Providers Care Sales Development Director Name Role Phone Consuelo Hobbs PA-C Primary Care Provider Madi Sharp MD Unavailable [phone] Encounter Details Date Type Department Care Team (Latest Contact Info) Description 04/22/2021 Travel Social History Tobacco Use Types Packs/Day [...] Description 11/13/2023 7:45 AM EDT Office Visit [facility] at [address] [phone] Ricci Carter MD [address] [place] [address] 11/13/2023 8:30 AM EDT Infusion [facility] Outpatient Infusion Center [address] [phone] Ricci Carter MD [address] [place] [phone] Keiko Hallman MD 80 [facility] [place] [address] 11/20/2023 11:00 AM EDT Appointment [facility] Radiology [facility] Mammography [address] [place] [phone] Ricci Carter MD [address] [place] [phone] 11/20/2023 11:30 AM EDT Appointment [facility] Radiology Sh[facility] Mammography 35 [place] [phone] Ricci Carter MD [address] [place] [phone] 03/05/2024 11:00 AM EST Consult [facility] Medical Group Cardiology [address] [place] [phone] Ricci Carter MD [address] [place], [place] [phone] Jamil Ralph MD [address] [place], [place] [phone] 05/30/2024 9:00 AM EST Office Visit [facility] Department of Internal [facility] [address] [phone] Consuelo Hobbs PA-C [address] [phone] documented as of this encounter Visit Diagnoses Not on filedocumented in this encounter Care Teams Sales Development Director Relationship Specialty Start Date End Date Consuelo Hobbs PA-C [address] [place] [phone] PCP - General 05/01/19 Madi Sharp MD [address] [place] [address] Gastroenterology 10/02/19 documented as of this encounter
--- OUTSIDE RECORDS SUMMARY | 2023-10-29 17:48 | XMS_ITS | Encounter Summary ---
Author Organization [facility] Address [address] [place] [address] Care Team Providers Care Balance Wheel Arm Burnisher Name Role Phone Consuelo Hobbs PA-C Primary Care Provider Madi Sharp MD Unavailable [phone] Reason for Visit * Reason Comments Appointment Encounter Details Date Type Department Care Team (Late st Contact Info) Description 04/19/2021 Telephone [facility] [address] [place] [address] [address] [place] [phone] Madi Sharp MD [address] [place] [address] Appointment Social History Tobacco Use Types Packs/Day Years [...] PM EST documented as of this encounter Miscellaneous Notes * Telephone Encounter - Rosemarie Munoz MA - 04/19/2021 2:41 PM EST Spoke with pt all set for egd on 04/22 with JW * Telephone Encounter - Rosemarie Munoz MA - 04/19/2021 1:38 PM EST Left voice message for pt to call me back to sched egd on 04/[address] Sharp * Telephone Encounter - Rosemarie Munoz MA - 04/19/2021 1:38 PM EST ----- Message from Madi Sharp MD sent at 04/19/2021 1:16 PM EST ----- Please call patient and get her set up for an EGD with me on April 22. Patient expecting your phone call. Order placed thank you documented in this encounter Plan of Treatment Upcoming Encounters Date Type Department Care Team (Late st Contact Info) Description 11/13/2023 7:45 AM EDT Office Visit [facility] Medical Oncology at [address] [phone] Ricci Carter MD [address] [place] [address] 11/13/2023 8:30 AM EDT Infusion [facility] [place] at [facility] Outpatient Infusion Center [address] [phone] Ricci Carter MD [address] [place] [address] Keiko Hallman MD 80 [facility] [place] [address] 11/20/2023 11:00 AM EDT Appointment [facility] Radiology [place] Mammography [address] [place] [phone] Ricci Carter MD [address] [place], [place] [phone] 11/20/2023 11:30 AM EDT Appointment [facility] Radiology [place] Mammography [address] [place] [phone] Ricci Carter MD [address] [place], [place] [phone] 03/05/2024 11:00 AM EST Consult [facility] Cardiology [address] [place] [phone] Ricci Carter MD [address] [place] [address] Jamil Ralph MD [address] [facility] [address] [place] [address] 05/30/2024 9:00 AM EST Office Visit [facility] Department of Internal Medicine [facility] [place] 1210 [facility] [address] [place], [place] [phone] Consuelo Hobbs PA-C 1210 [facility] [address] [place] [address] documented as of this encounter Visit Diagnoses Not on filedocumented in this encounter Care Teams Balance Wheel Arm Burnisher Relationship Specialty Start Date End Date Consuelo Hobbs PA-C [facility] [address] [address] PCP - General 05/01/19 Madi Sharp MD [address] [place] [address] Gastroenterology 10/02/19 documented as of this encounter
--- OUTSIDE RECORDS SUMMARY | 2023-10-29 17:48 | XMS_ITS | Encounter Summary ---
Author Organization [facility] Address [address] [place] [address] Care Team Providers Care Non Emergency Services Ambulance Driver Name Role Phone Consuelo Hobbs PA-C Primary Care Provider Madi Sharp MD Unavailable [phone] Encounter Details Date Type Department Care Team (Latest Contact Info) Description 06/22/2021 Travel Social History Tobacco Use Types Packs/Day [...] Visit [facility] Cancer [place] Medical Oncology at [address] [phone] Ricci Carter MD [address] [place] [address] 11/13/2023 8:30 AM EDT Infusion [facility] Cancer [place] at [facility] Out[facility]fusion [facility] [address] [phone] Ricci Carter MD [address] [place] [address] Keiko Hallman MD 80 [facility] [place] [address] 11/20/2023 11:00 AM EDT Appointment [facility] Radiology [facility] M[facility] [address] [place] [phone] Ricci Carter MD [address] [place] [address] 11/20/2023 11:30 AM EDT Appointment [facility] Radiology [facility] Mammography [address] [place] [phone] Ricci Carter MD [address] [place] [address] 03/05/2024 11:00 AM EST Consult [facility] Cardiology [place] [address] [facility] [address] [place] [phone] Ricci Carter MD [address] [place] [address] Jamil Ralph MD [address] [facility] [address] [place] [address] 05/30/2024 9:00 AM EST Office Visit [facility] Department of Internal Medicine [facility] 1210 [facility] [address] [place], [place] [phone] Consuelo Hobbs PA-C 1210 [facility] 109 [place], [place] [phone] documented as of this encounter Visit Diagnoses Not on filedocumented in this encounter Care Teams Non Emergency Services Ambulance Driver Relationship Specialty Start Date End Date Consuelo Hobbs PA-C [address] [phone] PCP - General 05/01/19 Madi Sharp MD [address] [place] [address] Gastroenterology 10/02/19 documented as of this encounter
--- OUTSIDE RECORDS SUMMARY | 2023-10-29 17:48 | XMS_ITS | Encounter Summary ---
Author Organization [facility] Address [address] [place] [address] Care Team Providers Care Cream Maker Name Role Phone Consuelo Hobbs PA-C Primary Care Provider Madi Sharp MD Unavailable [phone] Encounter Details Date Type Department Care Team ([facility] Contact Info) Description 06/08/2021 Scanned Document [facility] Cancer [place] Medical Oncology at [address] [phone] Provider, Dodie, [address] [place] [address] Social History Tobacco Use Types Packs/Day Years [...] Upcoming Encounters Date Type Department Care Team ([facility] st Contact Info) Description 11/13/2023 7:45 AM EDT Office Visit [facility] Medical Oncology at [address] [phone] Ricci Carter MD [address] [place], [place] [phone] 11/13/2023 8:30 AM EDT Infusion [facility] Cancer [place] at [facility] Outpatient Infusion Center [address] [phone] Ricci Carter MD [address] [place], [place] [phone] Keiko Hallman MD 80 [facility] [place] [address] 11/20/2023 11:00 AM EDT Appointment [facility] Radiology [place] Mammography [address] [place] [phone] Ricci Carter MD [address] [place], [place] [phone] 11/20/2023 11:30 AM EDT Appointment [facility] Radiology [place] [facility]ammography [address] [place] [phone] Ricci Carter MD [address] [place], [place] [phone] 03/05/2024 11:00 AM EST Consult [facility] Cardiology [address] [place] [phone] Ricci Carter MD [address] [place], [place] [phone] Jamil Ralph MD [address] [place] [address] 05/30/2024 9:00 AM EST Office Visit [facility] Department of Internal Medicine [facility] 1210 [facility] [address] [place] [address] Consuelo Hobbs PA-C 1210 [facility] 109 [place] [address] documented as of this encounter Visit Diagnoses Not on filedocumented in this encounter Care Teams Cream Maker Relationship Specialty Start Date End Date Consuelo Hobbs PA-C [address] [address] PCP - General 05/01/19 Madi Sharp MD [address] [address] Gastroenterology 10/02/19 documented as of this encounter
--- OUTSIDE RECORDS SUMMARY | 2023-10-29 17:48 | XMS_ITS | Encounter Summary ---
Author Organization [facility] Address [address] [place] [address] Care Team Providers Care Housekeeping Associate Name Role Phone Consuelo Hobbs PA-C Primary Care Provider Madi Sharp MD Unavailable [phone] Reason for Visit * Reason Comments Covid-19 Pre-screening Pcr, chest tighne ss from the coughing, sore throat, and headache. fully vaccinated, did a home test (negative) Encounter Details Date Type Department Care Team (Late st Contact Info) Description 03/26/2021 11:15 PM EST Office Visit [facility] [address] [phone] Den Hansen MD [address] [place] [address] Mark Galo APRN [address] [place] [address] Encounter for screening laboratory testing for COVID-19 virus (Primary Dx) Social History Tobacco Use Types [...] Sign Reading Time Taken Comments Blood Pressure 135/87 03/26/2021 12:49 PM EST Pulse 92 03/26/2021 12:49 PM EST Temperature 36.9 ??C (98.5 ??F) 03/26/2021 12:[address] Respiratory Rate 16 03/26/2021 12:49 PM EST Oxygen Saturation 99% 03/26/2021 12:49 PM EST Inhaled Oxygen Concentration - - Weight 59 kg (130 lb) 03/26/2021 12:49 PM EST Height 160 cm (5' 3) 03/26/2021 12:49 PM EST Body Mass Index 23.03 03/26/2021 12:49 PM EST documented in this encounter Progress Notes * Mark Galo APRN - 03/26/2021 1:04 PM EST Assessment & Plan Rody was seen today for covid-19 pre-screening. Diagnoses and all orders for this visit: Encounter for screening laboratory testing for COVID-19 virus - SARS COV 2 RNA(COVID 19), Qualitative NAAT (Covid PCR to [facility]) Medical Decision Making and Data Synthesis: The patient presents today for COVID-19 swab testing in setting of Covid-19 pandemic. Ordered COVID-19 swab test. Advised the patient on continued precautions and prevention of COVID-19. Patient is aware of the limitations of current testing. Will notify the patient of test results if it is positive. Discussed at length OTC regimen for help with symptomatic treatments. Advised patient to seek medical attention if symptoms of COVID-19 develop. Communication barriers and lifestyle preferences were addressed with the patient and/or family . The care plan including medications and self-management goals were reviewed to the best of the Patientand/or family's ability. All questions and concerns were answered. Patient and/or family verbalizedunderstanding of the plan of care No results found for this or any previous visit (from the past 2 hour(s)). Subjective Subjective Patient ID: Rody Sotelo is a 50 y.o. female. Patient is a 50-year-old female presented to the clinic today for Covid. She is vaccinated. She hascomplaints of cough congestion runny nose generalized malaise Review of Systems Constitutional: Negative for chills, fatigue and fever. HENT: Negative for congestion, postnasal drip, sinus pressure, sinus pain, sneezing and tinnitus. Eyes: Negative for photophobia, redness and itching. Respiratory: Negative for cough, shortness of breath and wheezing. Cardiovascular: Negative for chest pain and palpitations. Gastrointestinal: Negative for abdominal pain, constipation, diarrhea and nausea. Genitourinary: Negative for difficulty urinating, dysuria, enuresis, hematuria and urgency. Musculoskeletal: Negative for arthralgias, myalgias, neck pain and neck stiffness. Skin: Negative for color change and rash. Neurological: Negative for dizziness, syncope, weakness and light-headedness. Psychiatric/Behavioral: Negative for agitation, confusion and hallucinations. Objective Objective Vitals: 03/26/21 1249 BP: 135/87 Pulse: 92 Resp: 16 Temp: 98.5 ??F (36.9 ??C) SpO2: 99% Weight: 59 kg (130 lb) Height: 1.6 m (5' 3) Physical Exam Vitals and nursing note reviewed. Constitutional: General: She is not in acute distress. Appearance: Normal appearance. She is normal weight. She is not toxic-appearing. HENT: Head: Normocephalic and atraumatic. Right Ear: External ear normal. Left Ear: External ear normal. Nose: Nose normal. No congestion. Eyes: General: No scleral icterus. Extraocular Movements: Extraocular movements intact. Conjunctiva/sclera: Conjunctivae normal. Pupils: Pupils are equal, round, and reactive to light. Cardiovascular: Rate and Rhythm: Normal rate and regular rhythm. Heart sounds: No murmur heard. No gallop. Pulmonary: Effort: Pulmonary effort is normal. No respiratory distress. Breath sounds: Normal breath sounds. Abdominal: General: Abdomen is flat. Palpations: Abdomen is soft. Tenderness: There is no abdominal tenderness. Skin: General: Skin is warm and dry. Neurological: General: No focal deficit present. Mental Status: She is alert and oriented to person, place, and time. Mental status is at baseline. Psychiatric: Mood and Affect: Mood normal. Behavior: Behavior normal. documented in this encounter Plan of Treatment Upcoming Encounters Date Type Department Care Team (Late st Contact Info) Description 11/13/2023 7:45 AM EDT Office Visit [facility] Medical Oncology at [address] [phone] Ricci Carter MD [address] [place] [address] 11/13/2023 8:30 AM EDT Infusion [facility] Cancer [place] at [facility] Outpatient Infusion Center [address] [phone] Ricci Carter MD [address] [place], [place] [phone] Keiko Hallman MD 80 [facility] [place] [address] 11/20/2023 11:00 AM EDT Appointment [facility] Radiology Shay Mammography [address] [place] [phone] Ricci Carter MD [address] [place] [address] 11/20/2023 11:30 AM EDT Appointment [facility] Radiology [place] Mammography [address] [place] [phone] Ricci Carter MD [address] [place] [address] 03/05/2024 11:00 AM EST Consult [facility] Cardiology [place] [address] [facility] [address] [place] [phone] Ricci Carter MD [address] [place] [place] [address] Jamil Ralph MD [address] [place] [address] 05/30/2024 9:00 AM EST Office Visit [facility] Department of Internal Medicine [facility] 1210 [facility] [address] [place], [place] [phone] Consuelo Hobbs PA-C 1210 [facility] [address] [place], [place] [phone] documented as of this encounter Procedures Procedure Name Priority Date/Time Associated Diagnosis Comments SARS COV 2 RNA(COVID 19), QUALITATIVE NAAT Routine 03/26/2021 12:52 PM EST Encounter for screening laboratory testing for COVID-19 virus documented in this encounter Results * SARS COV 2 RNA(COVID 19), Qualitative NAAT (Covid PCR to [facility]) (03/26/2021 12:52 PM EST) SARS CoV 2 RNA NOT DETECTED NOT DETECTED Software 2000-Software 2000 Comment: A Not Detected result means that SARS-CoV-2 RNA was not present in the specimen above the limit of detection. ?? A Not Detected result does not rule out the possibility of COVID-19 and should not be used as the sole basis for treatment or patient management decisions. If COVID-19 is still suspected, based on exposure history together with other clinical findings, re-testing should be considered in the context of clinical observations and epidemiological data for patient management decisions. Test Method: Nucleic Acid Amplification Test including reverse cigar sorter polymerase chain reaction (RT-PCR) and cigar sorter mediated amplification (TMA). The test method meets the [place] Centers for Disease Control and prevention (CDC) pre departure and arrival requirement for viral test for COVID-19 dated April 30, 2020. Testing requirements for traveling may change with time. The patient is responsible for determining the test requirements for each nation while they are traveling. ?? This test has been authorized by the FDA under an Emergency Use Authorization (EUA) for use by authorized laboratories. Please review the Fact Sheets and FDA authorized labeling available for health care providers and patients using the following websites: https://www.[employer]/home/Covid-19/HCP/QuestLDT/ fact-sheet.html https://www.[employer]/home/Covid-19/Patients/QuestLDT/ fact-sheet.html Due to the current public health emergency, [facility] is accepting samples from appropriate clinical sources collected using wide variety of swabs and transport media for COVID-19. Not detected test results derived from specimens received in non- commercially manufactured viral collection kits or those not yet authorized by FDA for COVID-19 testing should be cautiously evaluated and take extra precautions such as additional clinical monitoring, including collection of an additional specimen. ?? Additional information about COVID-19 can be found at the [facility] website: www.[employer]/Covid19. Microbiology 03/26/2021 12:5 2 PM EST 03/28/2021 12:42 PM EST Den Hansen MD MICROBIOLOGY - GENER AL ORDERABLES [facility] [address] [place] [address], [place] [address] documented in this encounter Visit Diagnoses Diagnosis Encounter for screening laboratory testing for COVID-19 virus- Primary documented in this encounter Care Teams Housekeeping Associate Relationship Specialty Start Date End Date Consuelo Hobbs PA-C [facility] [address] [place] [address] PCP - General 05/01/19 Madi Sharp MD 85 [place] [address] Gastroenterology 10/02/19 documented as of this encounter
--- OUTSIDE RECORDS SUMMARY | 2023-10-29 17:48 | XMS_ITS | Encounter Summary ---
Author Organization [facility] Address [address] [place] [address] Care Team Providers Care Orthopaedic Technologist Name Role Phone Consuelo Hobbs PA-C Primary Care Provider Madi Sharp MD Unavailable [phone] Encounter Details Date Type Department Care Team (Late st Contact Info) Description 03/16/2021 Orders Only [facility] Cancer [place] Medical Oncology at [address] [phone] Ricci Carter MD [address] [place] [address] Social History Tobacco Use Types Packs/Day Years [...] Description 11/13/2023 7:45 AM EDT Office Visit [facility] Medical Oncology at [address] [phone] Ricci Carter MD [address] [place], [place] [phone] 11/13/2023 8:30 AM EDT Infusion [facility] Cancer [place] at [facility] Outpatient Infusion Center [address] [phone] Ricci Carter MD [address] [place], [place] [phone] Keiko Hallman MD 80 [facility] [place] [address] 11/20/2023 11:00 AM EDT Appointment [facility] Radiology Shay Mammography [address] [place] [phone] Ricci Carter MD [address] [place], [place] [phone] 11/20/2023 11:30 AM EDT Appointment [facility] Radiology Shay Mammography [address] [place] [address] [phone] Ricci Carter MD [address] [place], [place] [phone] 03/05/2024 11:00 AM EST Consult [facility] Cardiology [address] [place] [address] [phone] Ricci Carter MD [address] [place] [address] Jamil Ralph MD [address] [place] [address] 05/30/2024 9:00 AM EST Office Visit [facility] Department of Internal Medicine [facility] 1210 [facility] 109 [place] [address] Consuelo Hobbs PA-C [address] [address] documented as of this encounter Procedures Procedure Name Priority Date/Time Associated Diagnosis Comments HX PHYSICIAN ORDER Routine 03/09/2021 documented in this encounter Results * Physician Order (03/09/2021) Ricci Carter MD HX AMB PROCEDURES documented in this encounter Visit Diagnoses Not on filedocumented in this encounter Care Teams Orthopaedic Technologist Relationship Specialty Start Date End Date Consuelo Hobbs PA-C [address] [place] [address] PCP - General 05/01/19 Madi Sharp MD [address] [place] [address] [place] [address] Gastroenterology 10/02/19 documented as of this encounter
--- OUTSIDE RECORDS SUMMARY | 2023-10-29 17:48 | XMS_ITS | Encounter Summary ---
Author Organization [facility] Address [address] [place] [address] Care Team Providers Care Mat Roller Name Role Phone oCnsuelo Hobbs PA-C Primary Care Provider Madi Sharp MD Unavailable [phone] Encounter Details Date Type Department Care Team (Latest Contact Info) Description 07/13/2021 Travel Social History Tobacco Use Types Packs/Day [...] [facility] Cancer [place] Medical Oncology at [address] [phone] Ricci Carter MD [address] [place] [address] 11/13/2023 8:30 AM EDT Infusion [facility] Cancer [place] at [facility] Outpatient Infusion Center [address] [phone] Ricci Carter MD [address] [place] [address] Keiko Hallman MD 80 [facility] [place] [address] 11/20/2023 11:00 AM EDT Appointment [facility] Radiology Shay Mammography 35 [place] [phone] Ricci Carter MD [address] [place] [address] 11/20/2023 11:30 AM EDT Appointment [facility] Radiology Shay Mammography 35 [place] [phone] Ricci Carter MD [address] [place] [address] 03/05/2024 11:00 AM EST Consult [facility] Cardiology [place] 376 [facility] [address] [place] [phone] Ricci Carter MD [address] [place] [address] Jamil Ralph MD [address] [place] [facility] [address] [place] [address] 05/30/2024 9:00 AM EST Office Visit [facility] Department of Internal Medicine [facility] 1210 [facility] [address] [place], [place] [phone] Consuelo Hobbs PA-C 1210 [facility] 109 [place], [place] [phone] documented as of this encounter Visit Diagnoses Not on filedocumented in this encounter Care Teams Mat Roller Relationship Specialty Start Date End Date Consuelo Hobbs PA-C [address] [phone] PCP - General 05/01/19 Madi Sharp MD [address] [place] [address] Gastroenterology 10/02/19 documented as of this encounter
--- OUTSIDE RECORDS SUMMARY | 2023-10-29 17:48 | XMS_ITS | Encounter Summary ---
Author Organization [facility] Address [address] [place] [address] Care Team Providers Care Deputy Commissioner Name Role Phone Consuelo Hobbs PA-C Primary Care Provider Madi Sharp MD Unavailable [phone] Encounter Details Date Type Department Care Team (Late st Contact Info) Description 08/03/2021 Orders Only [facility] Cancer [place] Medical Oncology at [address] [phone] Ricci Carter MD [address] [place] [address] Social History Tobacco Use Types Packs/Day Years [...] [facility] Medical Oncology at [address] [phone] Ricci Carter MD [address] [place], [place] [phone] 11/13/2023 8:30 AM EDT Infusion [facility] Cancer [place] at [facility] Outpatient Infusion Center [address] [phone] Ricci Carter MD [address] [place], [place] [phone] Keiko Hallman MD 80 [facility] [place] [address] 11/20/2023 11:00 AM EDT Appointment [facility] Radiology Shay Mammography [address] [place] [address] [phone] Ricci Carter MD [address] [place], [place] [phone] 11/20/2023 11:30 AM EDT Appointment [facility] Radiology Shay Mammography [address] [place] [address] [phone] Ricci Carter MD [address] [place], [place] [phone] 03/05/2024 11:00 AM EST Consult [facility] Cardiology [address] [place] [phone] Ricci Carter MD [address] [place] [address] Jamil Ralph MD [address] [facility] [address] [place] [address] 05/30/2024 9:00 AM EST Office Visit [facility] Department of Internal Medicine [facility] 1210 [facility] 109 [place] [address] Consuelo Hobbs PA-C 1210 [facility] 109 [place] [address] documented as of this encounter Visit Diagnoses Not on filedocumented in this encounter Care Teams Deputy Commissioner Relationship Specialty Start Date End Date Consuelo Hobbs PA-C [address] [place] [address] 109 [place] [address] PCP - General 05/01/19 Madi Sharp MD [address] [place] [address] Gastroenterology 10/02/19 documented as of this encounter
--- OUTSIDE RECORDS SUMMARY | 2023-10-29 17:48 | XMS_ITS | Encounter Summary ---
Author Organization Formerly [facility] Address [address] [place] [address] Care Team Providers Care Heel Seat Trimmer Name Role Phone Consuelo Hobbs PA-C Primary Care Provider Madi Sharp MD Unavailable [phone] Encounter Details Date Type Department Care Team (Latest Contact Info) Description 08/03/2021 Travel Social History Tobacco Use Types Packs/Day [...] suspected to have Coronavirus/COVID-19? No / Unsure 08/03/2021 8:21 AM EDT documented as of this encounter Plan of Treatment Upcoming Encounters Date Type Department Care Team (Late st Contact Info) Description 11/13/2023 7:45 AM EDT Office Visit [facility] at [address] [phone] Ricci Carter MD [address] [place] [address] 11/13/2023 8:30 AM EDT Infusion [facility] [place] [address] [place] [address] Ricci Carter MD [address] [place] [address] Keiko Hallman MD 80 [facility] [place] [address] 11/20/2023 11:00 AM EDT Appointment [facility] Radiology Sh[facility] Mammography [address] [place] [phone] Ricci Carter MD [address] [place] [address] 11/20/2023 11:30 AM EDT Appointment [facility] Radiology Sh[facility] Mammography [address] [place] [phone] Ricci Carter MD [address] [place] [address] 03/05/2024 11:00 AM EST Consult [facility] Cardiology [place] [address] [facility] [address] [place] [phone] Ricci Carter MD [address] [place] [address] Jamil Ralph MD [address] [facility] [address] [place] [address] 05/30/2024 9:00 AM EST Office Visit [facility] Department of Internal Medicine [facility] [address] [phone] Consuelo Hobbs PA-C [address] [phone] documented as of this encounter Visit Diagnoses Not on filedocumented in this encounter Care Teams Heel Seat Trimmer Relationship Specialty Start Date End Date Consuelo Hobbs PA-C [address] [phone] PCP - General 05/01/19 Madi Sharp MD [address] [place] [address] Gastroenterology 10/02/19 documented as of this encounter
--- OUTSIDE RECORDS SUMMARY | 2023-10-29 17:48 | XMS_ITS | Encounter Summary ---
Author Organization [facility] Address [address] [place] [address] Care Team Providers Care Building Tech Name Role Phone Consuelo Hobbs PA-C Primary Care Provider Madi Sharp MD Unavailable [phone] Encounter Details Date Type Department Care Team ([facility] st Contact Info) Description 04/19/2021 Orders Only [facility] [address] [place] [address] [place] [phone] Madi Sharp MD [address] [place] [address] Epigastric pain (Primary Dx); Hematemesis, presence of nausea not specified Social History Tobacco Use Types Packs/Day Years [...] [facility] Medical Oncology at [address] [phone] Ricci Carter MD [address] [place] [address] 11/13/2023 8:30 AM EDT Infusion [facility] [place] at [facility]fusion [facility] [address] [phone] Ricci Carter MD [address] [place], [place] [phone] Keiko Hallman MD 80 [facility] [place] [address] 11/20/2023 11:00 AM EDT Appointment [facility] Radiology Shay Mammography [address] [place] [phone] Ricci Carter MD [address] [place] [address] 11/20/2023 11:30 AM EDT Appointment [facility] Radiology [facility] Mammography [address] [place] [phone] Ricci Carter MD [address] [place], [place] [phone] 03/05/2024 11:00 AM EST Consult [facility] Cardiology [address] [address] Ricci Carter MD [address] [place] [address] Jamil Ralph MD [address] [place] [address] 05/30/2024 9:00 AM EST Office Visit [facility] Department of Internal Medicine [facility] [address] [facility] [address] [place] [address] Consuelo Hobbs PA-C [address] [address] documented as of this encounter Visit Diagnoses Diagnosis Epigastric pain- Primary Abdominal pain, epigastric Hematemesis, presence of nausea not specified documented in this encounter Care Teams Building Tech Relationship Specialty Start Date End Date Consuelo Hobbs PA-C [address] [place] [address] 109 [place] [address] PCP - General 05/01/19 Madi Sharp MD [address] [address] Gastroenterology 10/02/19 documented as of this encounter
--- OUTSIDE RECORDS SUMMARY | 2023-10-29 17:48 | XMS_ITS | Encounter Summary ---
Author Organization [facility] Address [address] [place] [address] Care Team Providers Care Auto Service Representative Name Role Phone Consuelo Hobbs PA-C Primary Care Provider Madi Sharp MD Unavailable [phone] Reason for Visit * Episode Based Medications (Routine) - Authorized Specialty Diagnoses / Procedures Referred By Contac t Referred To Contact Diagnoses Carcinoid tumor of ileum, unspecified whether malignant (HCC) Keiko Hallman MD [address] [facility] [place] [address] Med Onc [address] [address] Referral ID Status Reason Start Date Expiration Date V isits Requested Visits Authorized [id number] Authorized 04/29/2022 11/27/2023 5 2 Encounter Details Date Type Department Care Team (Late st Contact Info) Description 08/03/2021 8:30 AM EDT Infusion [facility] Cancer [place] at [facility] [address] [phone] Ricci Carter MD [address] [place] [address] Keiko Hallman MD 80 [facility] [place] [address] Sienna Alaniz RN 80 [place] [address] Carcinoid tumor of ileum, unspecified whether malignant [...] Sign Reading Time Taken Comments Blood Pressure 135/61 08/03/2021 8:26 AM EDT Pulse 79 08/03/2021 8:26 AM EDT Temperature 35.6 ??C (96 ??F) 08/03/2021 8:26 AM EDT Respiratory Rate 16 08/03/2021 8:26 AM EDT Oxygen Saturation 98% 08/03/2021 8:26 AM EDT Inhaled Oxygen Concentration - - Weight 66.5 kg (146 lb 11.2 oz) 08/03/2021 8:26 AM EDT Height - - Body Mass Index 25.99 03/26/2021 12:49 PM EST documented in this encounter Plan of Treatment Upcoming Encounters Date Type Department Care Team (Late st Contact Info) Description 11/13/2023 7:45 AM EDT Office Visit [facility] [place] Medical Oncology at [address] [phone] Ricci Carter MD [address] [place] [address] 11/13/2023 8:30 AM EDT Infusion [facility] Cancer [place] [facility] [place] [address] [place] [address] Ricci Carter MD [address] [place] [address] Keiko Hallman MD 80 [facility] [place] [address] 11/20/2023 11:00 AM EDT Appointment [facility] Radiology Shay Mammography 35 [place] [phone] Ricci Carter MD [address] [place] [address] 11/20/2023 11:30 AM EDT Appointment [facility] Radiology Sh[facility] Mammography [address] [place] [phone] Ricci Carter MD [address] [place] [address] 03/05/2024 11:00 AM EST Consult [facility] Cardiology [place] [address] [facility] [address] [place] [phone] Ricci Carter MD [address] [place] [address] Jamil Ralph MD [address] [place] [facility] [address] [place], [place] [phone] 05/30/2024 9:00 AM EST Office Visit [facility] [address] [phone] Consuelo Hobbs PA-C [address] [phone] documented as of this encounter Visit Diagnoses Diagnosis Carcinoid tumor of ileum, unspecified whether malignant (HCC)- Primary documented in this encounter Administered Medications Inactive Administered Medications - up to 1 most recent administrations Medication Order MAR Action Action Date Dose Rate Site octreotide (SandoSTATIN LAR) IM injection 40 mg 40 mg, Intramuscular, Once, On Mon08/03/21 at 0900, For 1 dose, Administer IM intragluteal (avoid deltoid administration). For intraMUSCULAR use ONLY. Must be administered immediately after mixing. Given 08/03/2021 8:36 AM EDT 40 mg Left Gluteal Upper Outer Quadrant documented in this encounter Care Teams Auto Service Representative Relationship Specialty Start Date End Date Consuelo Hobbs PA-C [address] [phone] PCP - General 05/01/19 Madi Sharp MD [address] [place] [address] Gastroenterology 10/02/19 documented as of this encounter
--- OUTSIDE RECORDS SUMMARY | 2023-10-29 17:48 | XMS_ITS | Encounter Summary ---
Author Organization [facility] Address [address] [place] [address] Care Team Providers Care Ammonia Still Operator Name Role Phone Consuelo Hobbs PA-C Primary Care Provider Maid Sharp MD Unavailable [phone] Encounter Details Date Type Department Care Team ([facility] st Contact Info) Description 04/22/2021 Scanned Document [facility] [address] [facility] [place] [address] Madi Sharp MD [address] [place], [place] [address] Social History Tobacco Use Types Packs/Day Years [...] 11/13/2023 7:45 AM EDT [facility] at [address] [phone] Ricci Carter MD [address] [place], [place] [phone] 11/13/2023 8:30 AM EDT Infusion [facility] Cancer [place] [facility] Outpatient Infusion Center [address] [phone] Ricci Carter MD [address] [place], [place] [phone] Keiko Hallman MD 80 [facility] [place] [address] 11/20/2023 11:00 AM EDT Appointment [facility] Radiology Shay Mammography [address] [place] [phone] Ricci Carter MD [address] [place], [place] [phone] 11/20/2023 11:30 AM EDT Appointment [facility] Radiology Sh[facility] Mammography [address] [place] [phone] Ricci Carter MD [address] [place], [place] [phone] 03/05/2024 11:00 AM EST Consult [facility] Cardiology [address] [place] [phone] Ricci Carter MD [address] [place] [address] Jamil Ralph MD [address] [place] [address] 05/30/2024 9:00 AM EST Office Visit [facility] Department of Internal Medicine [facility] 1210 [facility] [address] [place] [address] Consuelo Hobbs PA-C 1210 [facility] [address] [place] [address] documented as of this encounter Procedures Procedure Name Priority Date/Time Associated Diagnosis Comments PATHOLOGY REPORT 04/22/2021 12:0 0 AM EST documented in this encounter Results * PATHOLOGY REPORT (04/22/2021 12:00 AM EST) Madi Sharp MD PATHOLOGY/CYTOLOGY O RDERABLES documented in this encounter Visit Diagnoses Not on filedocumented in this encounter Care Teams Ammonia Still Operator Relationship Specialty Start Date End Date Consuelo Hobbs PA-C [address] [place] [address] PCP - General 05/01/19 Madi Sharp MD 85 [facility] [address] [place] [address] Gastroenterology 10/02/19 documented as of this encounter
--- OUTSIDE RECORDS SUMMARY | 2023-10-29 17:48 | XMS_ITS | Encounter Summary ---
Author Organization [facility] Address [address] [place] [address] Care Team Providers Care Designer/Writer Name Role Phone Consuelo Hobbs PA-C Primary Care Provider Madi Sharp MD Unavailable [phone] Reason for Visit * Auth/Cert Specialty Diagnoses / Procedures Referred By Contbalbir t Referred To Contact Diagnoses Epigastric pain Hematemesis, presence of nausea not specified Epigastric pain [R10.13] Hematemesis, presence of nausea not specified [K92.0] Procedures ENDOSCOPY UPPER Referral ID Status Reason Start Date Expiration Date Visits Re quested Visits Authorized [id number] 1 1 Encounter Details Date Type Department Care Team (Late st Contact Info) Description 04/22/2021 1:30 PM EST - 04/22/2021 2:00 PM EST Surgery [facility] ENDO PROC GLAST [address] [place] [phone] Madi Sharp MD [address] [place] [address] ENDOSCOPY UPPER Social History Tobacco Use Types Packs/Day Years [...] Sign Reading Time Taken Comments Blood Pressure 118/76 04/22/2021 1:59 PM EST Pulse 82 04/22/2021 1:59 PM EST Temperature 36.6 ??C (97.8 ??F) 04/22/2021 1:39 PM ES T Respiratory Rate 16 04/22/2021 1:59 PM EST Oxygen Saturation 97% 04/22/2021 1:59 PM EST Inhaled Oxygen Concentration - - Weight - - Height - - Body Mass Index - - documented in this encounter Medications at Time of Discharge Medication Sig Dispensed Refills Start Date End Date calcium carbonate (OS-ANGELICA) 600 MG tablet Take 1 tablet (600 mg total) by mouth every morning with breakfast. 0 Cannabis (MARIJUANA) Misc Medical Prescription Strength as needed. 0 famotidine [...] times a day. 0 06/28/2019 06/07/[address] Particles capsule 36,000 Units [...] by mouth daily. 0 05/20/2020 06/07/2022 rizatriptan (MAXALT-LIQUOR GALLERY OPERATOR) 10 MG disintegrating tabletIndications:Migrai ne with status migrainosus, not intractable, unspecified migraine type DISSOLVE ONE TABLET BY MOUTH EVERY DAY NEEDED 9 tablet 0 03/30/2017 08/26/2022 Vitamin D3 (CHOLECALICEROL) 50 MCG (2000 UT) tablet Take 1 tablet (2,000 Units [...] Description 11/13/2023 7:45 AM EDT Office Visit [facility] Medical Oncology at [address] [phone] Ricci Carter MD [address] [place] [address] 11/13/2023 8:30 AM EDT Infusion [facility] Cancer [place] at [facility] Outpatient Infusion Center [address] [phone] Ricci Carter MD [address] [place] [address] Keiko Hallman MD [address] [facility] [place] [address] 11/20/2023 11:00 AM EDT Appointment [facility] Radiology Shay Mammography 35 [place] [phone] Ricci Carter MD [address] [place] [address] 11/20/2023 11:30 AM EDT Appointment [facility] Radiology Shay Mammography 35 [place] [phone] Ricci Carter MD [address] [place] [address] 03/05/2024 11:00 AM EST Consult [facility] Cardiology [address] [place] [phone] Ricci Carter MD [address] [place] [place], [place] [phone] Jamil Ralph MD [address] [facility] [address] [place] [address] 05/30/2024 9:00 AM EST Office Visit [facility] Department of Internal Medicine [facility] 1210 [facility] [address] [place] [address] Consuelo Hobbs PA-C [address] [address] documented as of this encounter Visit Diagnoses Diagnosis Epigastric pain Abdominal pain, epigastric Hematemesis, presence of nausea not specified documented in this encounter Care Teams Designer/Writer Relationship Specialty Start Date End Date Consuelo Hobbs PA-C [address] [address] PCP - General 05/01/19 Madi Sharp MD [address] [address] Gastroenterology 10/02/19 documented as of this encounter
--- OUTSIDE RECORDS SUMMARY | 2023-10-29 17:48 | XMS_ITS | Encounter Summary ---
Author Organization [facility] Address [address] [place] [address] Care Team Providers Care Marine Cargo Surveyor Name Role Phone Consuelo Hobbs PA-C Primary Care Provider Madi Sharp MD Unavailable [phone] Reason for Visit * Reason Comments Labs Only Encounter Details Date Type Department Care Team (Late st Contact Info) Description 08/03/2021 8:30 AM EDT Lab [facility] Cancer [place] Medical Oncology at [address] [phone] Ricci Carter MD [address] [place] [address] Carcinoid tumor of ileum, unspecified whether malignant [...] Visit [facility] Medical Oncology at [address] [phone] Ricci Carter MD [address] [place] [address] 11/13/2023 8:30 AM EDT Infusion [facility] Cancer [place] at [facility] Outpatient Infusion Center [address] [phone] Ricci Carter MD [address] [place], [place] [phone] Keiko Hallman MD 80 [facility] [place] [address] 11/20/2023 11:00 AM EDT Appointment [facility] Radiology Shay Mammography [address] [place] [phone] Ricci Carter MD [address] [place] [place], [place] [address] 11/20/2023 11:30 AM EDT Appointment [facility] Radiology Shay Mammography [address] [place] [phone] Ricci Carter MD [address] [place], [place] [address] 03/05/2024 11:00 AM EST Consult [facility] Cardiology [address] [place] [phone] Ricci Carter MD [address] [place] [address] Jamil Ralph MD [address] [place] [address] 05/30/2024 9:00 AM EST Office Visit [facility] Department of Internal Medicine [facility] 1210 [facility] [address] [place], [place] [phone] Consuelo Hobbs PA-C 1210 [facility] [address] [place], [place] [phone] documented as of this encounter Procedures Procedure Name Priority Date/Time Associated Diagnosis Comments POCT CBC WITH DIFFERENTIAL (NO BILL-REPORTABLE ONLY 3 PART)(ONCOLOGY-INTERF ACED) Routine 08/03/2021 9:01 AM EDT documented in this encounter Results * CBC with Differential (08/03/2021 9:01 AM EDT) White Blood Cell Count 6.2 4.0 - 11.0 Thou/uL 08/03/2021 9:10 AM EDT [facility] Red Blood Cell Count 4.32 4.00 - 5.40 Mil/uL 08/03/2021 9:10 AM EDT [facility] Hemoglobin 12.3 11.7 - 15.7 g/dL 08/03/2021 9:10 AM EDT [facility] Hematocrit 38.1 35.0 - 47.0 % 08/03/2021 9:10 AM EDT [facility] MCV 88 80 - 100 fL 08/03/2021 9:10 AM EDT [facility] MCH 28.5 27.0 - 31.0 pg 08/03/2021 9:10 AM EDT [facility] MCHC 32.3 30.0 - 36.0 g/dL 08/03/2021 9:10 AM EDT [facility] RDW 14.0 11.5 - 14.5 % 08/03/2021 9:10 AM EDT [facility] Platelet Count 229 150 - 450 Thou/uL 08/03/2021 9:10 AM EDT [facility] MPV 10.3 9.4 - 12.5 fL 08/03/2021 9:10 AM EDT [facility] Neutrophils Auto 46.3 % 08/04/19 9:10 AM EDT [facility] Abs Neutrophils Auto 2.90 2.00 - 7.50 Thou/uL 08/03/2021 9:10 AM EDT [facility] Lymphocytes Auto 44.2 % 08/04/19 9:10 AM EDT [facility] Abs Lymphocytes Auto 2.70 1.50 - 4.50 Thou/uL 08/03/2021 9:10 AM EDT [facility] Mixed Mononuclear Auto 9.5 % 08/03/2021 9:10 AM EDT [facility] Abs Mixed Mononuclear Auto <1.00 0.20 - 1.90 Thou/uL 08/03/2021 9:10 AM EDT [facility] Blood specimen / Unknown 08/03/2021 9:01 AM EDT 08/03/2021 9:10 AM EDT Generic Provider POCT ORDERABLES - [facility] [address] [place] [address] documented in this encounter Visit Diagnoses Diagnosis Carcinoid tumor of ileum, unspecified whether malignant (HCC)- Primary documented in this encounter Care Teams Marine Cargo Surveyor Relationship Specialty Start Date End Date Consuelo Hobbs PA-C [address] [place] [address] [address] [place] [address] PCP - General 05/01/19 Madi Sharp MD [address] [address] Gastroenterology 10/02/19 documented as of this encounter
--- OUTSIDE RECORDS SUMMARY | 2023-10-29 17:49 | XMS_ITS | Encounter Summary ---
Author Organization [facility] Address [address] [place] [address] Care Team Providers Care Serger Name Role Phone Consuelo Hobbs PA-C Primary Care Provider Madi Sharp MD Unavailable [phone] Encounter Details Date Type Department Care Team (Latest Contact Info) Description 01/05/2021 Travel Social History Tobacco Use Types Packs/Day [...] have Coronavirus / COVID-19? No / Unsure 01/05/2021 8:40 AM EDT documented as of this encounter Plan of Treatment Upcoming Encounters Date Type Department Care Team ( st Contact Info) Description 11/13/2023 7:45 AM EDT Office Visit [facility] Cancer [place] Medical Oncology at [address] [phone] Ricci Carter MD [address] [place] [address] 11/13/2023 8:30 AM EDT Infusion [facility] Cancer [place] at [facility] Outpatient Infusion Center [address] [phone] Ricci Carter MD [address] [place] [phone] Keiko Hallman MD 80 [facility] [place] [address] 11/20/2023 11:00 AM EDT Appointment [facility] Radiology Shay Mammography [address] [place] [phone] Ricci Carter MD [address] [place] [address] 11/20/2023 11:30 AM EDT Appointment [facility] Radiology Shay Mammography 35 [place] [phone] Ricci Carter MD [address] [place], [place] [phone] 03/05/2024 11:00 AM EST Consult [facility] Cardiology [address] [place] [phone] Ricci Carter MD [address] [place] [phone] Jamil Ralph MD [address] [place] [facility] [address] [place], [place] [phone] 05/30/2024 9:00 AM EST Office Visit [facility] Department of Internal Medicine [facility] [address] [phone] Consuelo Hobbs PA-C [address] [phone] documented as of this encounter Visit Diagnoses Not on filedocumented in this encounter Care Teams Serger Relationship Specialty Start Date End Date Consuelo Hobbs PA-C [address] [place] [phone] PCP - General 05/01/19 Madi Sharp MD [address] [place] [address] Gastroenterology 10/02/19 documented as of this encounter
--- OUTSIDE RECORDS SUMMARY | 2023-10-29 17:49 | XMS_ITS | Encounter Summary ---
Author Organization [facility] Address [address] [place] [address] Care Team Providers Care Copier Repair Technician Name Role Phone Consuelo Hobbs PA-C Primary Care Provider Madi Sharp MD Unavailable [phone] Reason for Visit * Episode Based Medications (Routine) - Authorized Specialty Diagnoses / Procedures Referred By Contac t Referred To Contact Diagnoses Carcinoid tumor of ileum, unspecified whether malignant (HCC) Keiko Hallman MD 80 [facility] [place] [address] Med Onc Ci [address] [phone] Referral ID Status Reason Start Date Expiration Date V isits Requested Visits Authorized [id number] Authorized 04/29/2022 11/27/2023 5 2 Encounter Details Date Type Department Care Team (Late st Contact Info) Description 01/26/2021 8:30 AM EDT Infusion [facility] Cancer [place] at [facility] Outpatient Infusion Center [address] [phone] Ricci Carter MD [address] [place] [address] Keiko Hallman MD [address] [facility] [place] [address] Alissa Sánchez RN [address] [facility] [address] [place] [address] Carcinoid tumor of ileum, unspecified whether malignant [...] have Coronavirus / COVID-19? No / Unsure 01/26/2021 8:28 AM EDT documented as of this encounter Last Filed Vital Signs Vital Sign Reading Time Taken Comments Blood Pressure 134/74 01/26/2021 8:34 AM EDT Pulse 82 01/26/2021 8:34 AM EDT Temperature 35.7 ??C (96.3 ??F) 01/26/2021 8:34 AM ED T Respiratory Rate 16 01/26/2021 8:34 AM EDT Oxygen Saturation 100% 01/26/2021 8:34 AM EDT Inhaled Oxygen Concentration - - Weight 62.6 kg (138 lb) 01/26/2021 8:34 AM EDT Height - - Body Mass Index 24.45 06/05/2020 8:47 AM EST documented in this encounter Plan of Treatment Upcoming Encounters Date Type Department Care Team (Late st Contact Info) Description 11/13/2023 7:45 AM EDT Office Visit [facility] [place] Medical Oncology at [facility] [address] [place] [phone] Ricci Carter MD [address] [place] [address] 11/13/2023 8:30 AM EDT Infusion [facility] Cancer [place] at [facility] Outpatient Infusion Center [address] [phone] Ricci Carter MD [address] [place], [place] [phone] Keiko Hallman MD 80 [facility] [place] [address] 11/20/2023 11:00 AM EDT Appointment [facility] Radiology [facility] [address] [place] [phone] Ricci Carter MD [address] [place] [address] 11/20/2023 11:30 AM EDT Appointment [facility] Radiology [facility] [address] [place] [phone] Ricci Carter MD [address] [place] [address] 03/05/2024 11:00 AM EST Consult [facility] Cardiology [place] [address] [facility] [address] [place] [phone] Ricci Carter MD [address] [place] [address] Jamil Ralph MD [address] [facility] [address] [place], [place] [phone] 05/30/2024 9:00 AM EST Office Visit [facility] Department of Internal Medicine [facility] 1210 [facility] [address] [place], [place] [phone] Consuelo Hobbs PA-C 1210 [facility] 109 [place], [place] [phone] documented as of this encounter Visit Diagnoses Diagnosis Carcinoid tumor of ileum, unspecified whether malignant (HCC)- Primary documented in this encounter Administered Medications Inactive Administered Medications - up to 1 most recent administrations Medication Order MAR Action Action Date Dose Rate Site octreotide (SandoSTATIN LAR) IM injection 40 mg 40 mg, Intramuscular, Once, On Tu01/26/21 at 0930, For 1 dose, Administer IM intragluteal (avoid deltoid administration). For intraMUSCULAR use ONLY. Must be administered immediately after mixing. Given 01/26/2021 8:40 AM EDT 40 mg Right Gluteal Upper Outer Quadrant documented in this encounter Care Teams Copier Repair Technician Relationship Specialty Start Date End Date Consuelo Hobbs PA-C [address] [place] [phone] PCP - General 05/01/19 Madi Sharp MD [address] [place] [address] Gastroenterology 10/02/19 documented as of this encounter
--- OUTSIDE RECORDS SUMMARY | 2023-10-29 17:49 | XMS_ITS | Encounter Summary ---
Author Organization [facility] Address [address] [place] [address] Care Team Providers Care Train Master Name Role Phone Consuelo Hobbs PA-C Primary Care Provider Madi Sharp MD Unavailable [phone] Encounter Details Date Type Department Care Team (Latest Contact Info) Description 01/26/2021 Travel Social History Tobacco Use Types Packs/Day [...] Description 11/13/2023 7:45 AM EDT Office Visit [facility] Cancer [place] Medical Oncology at [address] [phone] Ricci Carter MD [address] [place] [address] 11/13/2023 8:30 AM EDT Infusion [facility] Cancer [place] at [facility] Outpatient Infusion Center [address] [phone] Ricci Carter MD [address] [place] [phone] Keiko Hallman MD 80 [facility] [place] [address] 11/20/2023 11:00 AM EDT Appointment [facility] Radiology [facility] [address] [place] [phone] Ricci Carter MD [address] [place] [phone] 11/20/2023 11:30 AM EDT Appointment [facility] Radiology [facility] 35 [place] [phone] Ricci Carter MD [address] [place], [place] [phone] 03/05/2024 11:00 AM EST Consult [facility] Cardiology [address] [place] [phone] Ricci Carter MD [address] [place] [phone] Jamil Ralph MD [address] [facility] [address] [place], [place] [phone] 05/30/2024 9:00 AM EST Office Visit [facility] Department of Internal Medicine [facility] [address] [phone] Consuelo Hobbs PA-C [address] [phone] documented as of this encounter Visit Diagnoses Not on filedocumented in this encounter Care Teams Train Master Relationship Specialty Start Date End Date Consuelo Hobbs PA-C [address] [place] [phone] PCP - General 05/01/19 Madi Shapr MD [address] [place] [address] Gastroenterology 10/02/19 documented as of this encounter
--- OUTSIDE RECORDS SUMMARY | 2023-10-29 17:49 | XMS_ITS | Encounter Summary ---
Author Organization [facility] Address [address] [place] [address] Care Team Providers Care Plasterer Stucco Name Role Phone Consuelo Hobbs PA-C Primary Care Provider Madi Sharp MD Unavailable [phone] Reason for Visit * Reason Comments Injections * Episode Based Medications (Routine) - Authorized Specialty Diagnoses / Procedures Referred By Contbalbir t Referred To Contact Diagnoses Carcinoid tumor of ileum, unspecified whether malignant (HCC) Keiko Hallman MD 80 [facility] [place] [address] Med Onc Ci [address] [phone] Referral ID Status Reason Start Date Expiration Date V isits Requested Visits Authorized [id number] Authorized 04/29/2022 11/27/2023 5 2 Encounter Details Date Type Department Care Team (Late st Contact Info) Description 11/23/2020 9:15 AM EDT Infusion [facility] Cancer [place] at [facility] Outpatient Infusion Center [address] [phone] Ricci Carter MD [address] [place] [address] Keiko Hallman MD [address] [facility] [place] [address] Alissa Sánchez, RN 376 [facility] [address] [place] [address] Carcinoid tumor of ileum, unspecified whether malignant [...] have Coronavirus / COVID-19? No / Unsure 11/23/2020 9:11 AM EDT documented as of this encounter Last Filed Vital Signs Vital Sign Reading Time Taken Comments Blood Pressure 123/66 11/23/2020 9:16 AM EDT Pulse 74 11/23/2020 9:16 AM EDT Temperature 35.9 ??C (96.7 ??F) 11/23/2020 9:16 AM ED T Respiratory Rate 16 11/23/2020 9:16 AM EDT Oxygen Saturation 100% 11/23/2020 9:16 AM EDT Inhaled Oxygen Concentration - - Weight 59.7 kg (131 lb 11.2 oz) 11/23/2020 9:16 AM EDT Height - - Body Mass Index 23.34 06/05/2020 8:47 AM EST documented in this encounter Plan of Treatment Upcoming Encounters Date Type Department Care Team (Late st Contact Info) Description 11/13/2023 7:45 AM EDT Office Visit [facility] Cancer [place] Medical Oncology at [facility] [address] [place] [phone] Ricci Carter MD [address] [place] [address] 11/13/2023 8:30 AM EDT Infusion [facility] Cancer [place] at [facility] Outpatient Infusion Center [place] [address] [place] [phone] Ricci Carter MD [address] [place], [place] [phone] Keiko Hallman MD 80 [facility] [place] [address] 11/20/2023 11:00 AM EDT Appointment [facility] Radiology [facility] [address] [place] [phone] Ricci Carter MD [address] [place], [place] [phone] 11/20/2023 11:30 AM EDT Appointment [facility] Radiology [facility] 35 [place] [phone] Ricci Carter MD [address] [place], [place] [phone] 03/05/2024 11:00 AM EST Consult [facility] Cardiology [place] [address] [facility] [address] [place] [phone] Ricci Carter MD [address] [place] [address] Jamil Ralph MD [address] [facility] [address] [place], [place] [phone] 05/30/2024 9:00 AM EST Office Visit [facility] Department of Internal Medicine [facility] 1210 [facility] 109 [place], [place] [phone] Consuelo Hobbs PA-C [address] [phone] documented as of this encounter Visit Diagnoses Diagnosis Carcinoid tumor of ileum, unspecified whether malignant (HCC)- Primary documented in this encounter Administered Medications Inactive Administered Medications - up to 1 most recent administrations Medication Order MAR Action Action Date Dose Rate Site octreotide (SandoSTATIN LAR) IM injection 40 mg 40 mg, Intramuscular, Once, On 11/23/20 at 1000, For 1 dose, Administer IM intragluteal (avoid deltoid administration). For intraMUSCULAR use ONLY. Must be administered immediately after mixing. Given 11/23/2020 9:31 AM EDT 40 mg Left Gluteal Upper Outer Quadrant documented in this encounter Care Teams Plasterer Stucco Relationship Specialty Start Date End Date Consuelo Hobbs PA-C [address] [place] [phone] PCP - General 05/01/19 Madi Sharp MD [address] [place] [address] Gastroenterology 10/02/19 documented as of this encounter
--- OUTSIDE RECORDS SUMMARY | 2023-10-29 17:49 | XMS_ITS | Encounter Summary ---
Author Organization [facility] Address [address] [place] [address] Care Team Providers Care Beamster Name Role Phone Consuelo Hobbs PA-C Primary Care Provider Madi Sharp MD Unavailable [phone] Encounter Details Date Type Department Care Team ([facility] st Contact Info) Description 03/09/2021 8:05 AM EST Office Visit [facility] Cancer [place] Medical Oncology at [address] [phone] Ricci Carter MD [address] [place] [address] Carcinoid tumor of ileum (Primary Dx); Diarrhea, unspecified type; Oncology follow-up encounter; Encounter for monitoring octreotide therapy; Encounter to discuss test results Social History Tobacco Use Types Packs/Day Years [...] Sign Reading Time Taken Comments Blood Pressure 115/69 03/09/2021 8:17 AM EST Pulse 77 03/09/2021 8:17 AM EST Temperature 36.2 ??C (97.2 ??F) 03/09/2021 8:07 AM ES T Respiratory Rate 12 03/09/2021 8:17 AM EST Oxygen Saturation 99% 03/09/2021 8:17 AM EST Inhaled Oxygen Concentration - - Weight 60.8 kg (134 lb) 03/09/2021 8:17 AM EST Height - - Body Mass Index 23.74 06/05/2020 8:47 AM EST documented in this encounter Patient Instructions * Patient Instructions* Ricci Carter MD - 03/09/2021 8:16 AM EST - Syrup Mixer Assistant- Suma Tran documented in this encounter Progress Notes * Ricci Carter MD - 03/09/2021 8:05 AM EST Images from the original note were not included. Medical Oncology/Hematology Progress Note Healthcare Team: Consuelo Hobbs PA-C Subjective: Date of visit is: 03/09/2021 Rody Sotelo is a 50 y.o. female who presents here today for a follow- up visit regarding carcinoid. ONCOLOGY HISTORY: - December 16, 2019, colonoscopy was normal. Interim History: She has been feeling generally well. Last week, she required short acting octreotide. She required 2 doses with good effect. She is taking colestipol once daily. She does report that it helps. She will take 12-16 loperamide doses per day. She is moving bowels 3-6 times/day, which are soft. She reports no abdominal pain this week. She reports no nausea. She reports no weight loss. She denies any side effects from Sandostatin LAR. Taking: Loperamide: 12-16 tabs per day. Colestipol: 1 tabdaily. Kytril 2 mg daily. She reports no pain. Pain: 0 REVIEW OF SYSTEMS: Review of Systems Constitutional: Negative for appetite change, chills, diaphoresis, fever and unexpected weight change. HENT: Negative for mouth sores and nosebleeds. Respiratory: Negative for chest tightness, cough, shortness of breath and wheezing. Cardiovascular: Negative for chest pain and leg swelling. Gastrointestinal: Negative for abdominal distention, abdominal pain, blood in stool, nausea and vomiting. Endocrine: Negative for hot flashes. Denies flushing Musculoskeletal: Negative for arthralgias, back pain and myalgias. Skin: Negative for itching and rash. Neurological: Positive for headaches (migraines). Negative for dizziness and light-headedness. Hematological: Negative for adenopathy. Does not bruise/bleed easily. Psychiatric/Behavioral: Positive for sleep disturbance (she is sleeping a lot). The remainder of the 12- point ROS [...] water., Disp: 120 tablet, Rfl: 5 ??? CREON [address] Particles capsule, 36,000 Units [...] (2 mg total) by mouth daily., Disp: 30 tablet,Rfl: 5 ??? loperamide (IMODIUM A-D) 2 MG capsule, Take 2 mg by mouth 4 (four) times a day as needed for diarrhea., Disp: , Rfl: ??? Multiple Vitamin tablet, Take 1 tablet by mouth daily., Disp: , Rfl: ??? octreotide (SandoSTATIN LAR) 10 MG IM injection, Inject 40 mg into the shoulder, thigh, or buttocks every 21 days., Disp: , Rfl: ??? rizatriptan (MAXALT-MIXING MACHINE TENDER CORK ROD) 10 MG disintegrating tablet, DISSOLVE ONE TABLET [...] flushing)., Disp: 90 mL, Rfl: 11 ??? ondansetron (ZOFRAN) 4 MG tablet, TAKE 1 TABLET BY MOUTH THREE TIMES DAILY NEEDED FOR NAUSEA, Disp: , Rfl: Past Medical History Past Medical History: Diagnosis Date ??? Abdominal pain 04/13/2020 ??? Abdominal wall pain in right flank 08/19/2015 ??? Cancer (HCC) ??? IBS (irritable bowel syndrome) ??? Migraine 11/25/2019 ??? Migraines ??? PCOS (polycystic ovarian syndrome) 11/25/2019 ??? PVC (premature ventricular contraction) 11/25/2019 Past Surgical History Past Surgical History: Procedure Laterality Date ??? HEMICOLECTOMY Right ??? TONSILECTOMY, ADENOIDECTOMY, BILATERAL [...] History Social History Tobacco Use Smoking Status Current Every Day Smoker Smokeless Tobacco Never Used Tobacco Comment Patient will continue to ration down the number of cigarettes consumed daily. No objection to nicotine replacement but it seems unlikely to be needed Social History Substance and Sexual Activity Alcohol Use Yes ??? Alcohol/week: 2.0 standard drinks ??? Types: 2 Glasses of wine per week Social History Substance and Sexual Activity Drug Use Not on file Objective: Wt Readings from Last 2 Encounters: 03/09/21 60.8 kg (134 lb) 02/16/21 60.3 kg (133 lb) Physical Exam Vitals: 03/09/21 0807 03/09/21 0817 BP: 115/69 BP Location: Right arm Pulse: 77 Resp: 12 Temp: 97.2 ??F (36.2 ??C) SpO2: 99% Weight: 60.8 kg (134 lb) Performance status: ECOG (0) Fully active, [...] content normal. Judgment: Judgment normal. Results: - January 18, 2021, MRI ABDOMEN AND PELVIS WITH AND WITHOUT CONTRAST COMPARISON: 05/13/2027 and 11/28/2018 ?? FINDINGS: Image quality is technically degraded by motion artifact. ?? LUNG BASES: No pleural or pericardial effusion. ?? LIVER: Normal in size and contour. Normal signal intensity. Homogeneous enhancement. No focal hepatic lesion. ?? GALLBLADDER AND BILIARY TREE: The gallbladder is surgically absent. No intrahepatic or extrahepatic biliary ductal dilatation. The common duct measures up to 8 mm at the aleksandra hepatis. ?? SPLEEN: Not enlarged. ?? PANCREAS: Normal contour. No ductal dilatation. ?? ADRENAL GLANDS: No adrenal masses. ?? KIDNEYS AND URETERS: Symmetric in size and enhancement. 1.8 x 2.0 cm cyst interpolar region of the right kidney. No hydronephrosis. No perinephric stranding. ?? LYMPHOVASCULAR STRUCTURES: Normal caliber abdominal aorta. IVC is patent. ?? Cluster of lymph nodes at the root of the mesentery measures 0.9 x 1.3 cm on image 88 of series 1801. Previous measurement was 0.9 x 0.9 cm. ?? Again seen is a 1.9 x 2.4 x 2.1 cm lobulated enhancing mass in the right central mesentery, previously measuring 2.0 x 2.4 x 2.0 cm. ?? BOWEL: Small and large bowel loops are of normal caliber. No small bowel obstruction. ?? PELVIS: ?? UTERUS: The uterus is anteverted. The endometrial stripe measures 9 mm in thickness. Junctional zone is normal in signal and thickness. Motion artifact limits evaluation. ?? CERVIX: Unremarkable. ?? VAGINA: Unremarkable. ?? RIGHT OVARY: Not well visualized. ?? LEFT OVARY: Normal follicular pattern. ?? BLADDER: Decompressed. ?? PELVIC FREE FLUID: Trace free fluid in the pelvis. ?? IMPRESSION: Stable appearance of the dominant lobulated enhancing mass in the right central mesentery measure 1.9 x 2.4 x 2.1 cm. ?? A cluster of lymph nodes at the root of the mesentery appears slightly larger than on the 05/13/2019 examination. Lab Results Component Value Date WBC 8.7 [...] 01/05/2021 CREAT 0.66 01/05/2021 Assessment/Plan: 1. Carcinoid, [id number] A. Diagnosed July 11, 2013 1. S/p small bowel resection and right hemicolectomy a. Path- well- differentiated neuroendocrine tumor B. Receiving Sandostatin LAR, initiated October 17, 2013 1. re- staging MR abdomen/pelvis (January 09, 2020)- SD 2. re- staging MR abdomen/pelvis (January 18, 2021)- SD In summary, Rody is a 50 y.o. female with a PMHx significant for: migraines, PCOS, IBS and PVCs whopresents here today for a follow- up visit regarding carcinoid. Rody continues to remain clinically and radiographically stable. On January 18, 2021, re- staging MRI of abdomen and pelvis revealed: stable radiographic findings More specifically, there is a stable appearance of the dominant lobulated enhancing mass in the right central mesentery measure 1.9 x 2.4 x 2.1 cm. A cluster of lymph nodes at the root of the mesentery appears slightly larger than on the May 2019 examination. Discussed MRI results with her today. Last visit, echocardiogram ordered, which has not been performed. She never received a call. We will re- refer. Her diarrhea seems adequately managed at this time with Sandostatin LAR, which she is receiving every 3 weeks and tolerating well. She will receive a dose today. She is also managing with granisetron2 mg at bedtime, Creon, colestipol 1 g daily. I recommended she increase colestipol to at least 2 gtwice daily. Continue loperamide and short acting octreotide as needed. ORDERS 1. Carcinoid tumor of ileum - granisetron (KYTRIL) 1 MG tablet; Take 2 tablets (2 mg total) by mouth daily. Dispense: 60 tablet; Refill: 5 Flu shot recommended. She does not tend to get 1. No orders of the defined types were placed in this encounter. The patient will return in 12 weeks. Patient Instructions - Syrup Mixer Assistant- Suma Tran documented in this encounter Plan of Treatment Upcoming Encounters Date Type Department Care Team (Late st Contact Info) Description 11/13/2023 7:45 AM EDT Office Visit [facility] Medical Oncology at [address] [phone] Ricci Carter MD [address] [place] [address] 11/13/2023 8:30 AM EDT Infusion [facility] Cancer [place] at [facility] Outpatient Infusion Center [address] [phone] Ricci Carter MD [address] [place] [address] Keiko Hallman MD [address] [facility] [place] [address] 11/20/2023 11:00 AM EDT Appointment [facility] Radiology [facility] [address] [place] [phone] Ricci Carter MD [address] [place], [place] [phone] 11/20/2023 11:30 AM EDT Appointment [facility] Radiology [place] [facility] [address] [place] [phone] Ricci Carter MD [address] [place], [place] [phone] 03/05/2024 11:00 AM EST Consult [facility] Cardiology [address] [place] [phone] Ricci Carter MD [address] [place] [address] Jamil Ralph MD [address] [facility] [address] [place] [phone] 05/30/2024 9:00 AM EST Office Visit [facility] Department of [facility] [address] [facility] [address] [place], [place] [phone] Consuelo Hobbs PA-C 1210 [facility] [address] [place], [place] [phone] documented as of this encounter Visit Diagnoses Diagnosis Carcinoid tumor of ileum (HCC)- Primary Diarrhea, unspecified type Oncology follow-up encounter Encounter for monitoring octreotide therapy Encounter to discuss test results Other specified counseling documented in this encounter Care Teams Beamster Relationship Specialty Start Date End Date Consuelo Hobbs PA-C [address] [place] [address] PCP - General 05/01/19 Madi Sharp MD [address] [place] [address] Gastroenterology 10/02/19 documented as of this encounter
--- OUTSIDE RECORDS SUMMARY | 2023-10-29 17:49 | XMS_ITS | Encounter Summary ---
Author Organization [facility] Address [address] [place] [address] Care Team Providers Care Supervisor [place] Name Role Phone Zohaib Aldana PA-C Primary Care Provider Madi Sharp MD Unavailable [phone] Reason for Referral * Nutrition Services (Routine) - Closed Specialty Diagnoses / Procedures Referred By Vineet t Referred To Contact Nutrition Diagnoses Carcinoid tumor of ileum (HCC) Ricci Carter MD [address] [place], [place] Referral ID Status Reason Start Date Expiration Date V isits Requested Visits Authorized [id number] Closed Specialty Services Required 09/15/2020 09/16/2021 1 1 * Diagnostic Imaging (Routine) - Closed Specialty Diagnoses / Procedures Referred By Vineet campbell Referred To Contact Diagnoses Carcinoid tumor of ileum (HCC) Procedures MRI Pelvis w w/o contrast Ricci Carter MD [address] [place] [address] [place] Referral ID Status Reason Start Date Expiration Date Visits Re quested Visits Authorized [id number] Closed 09/15/2020 09/16/2021 1 1 * Diagnostic Imaging (Routine) - Closed Specialty Diagnoses / Procedures Referred By Contac t Referred To Contact Diagnoses Carcinoid tumor of ileum (HCC) Procedures MRI Abdomen w w/o contrast Ricci Carter MD [address] [place] [address] Referral ID Status Reason Start Date Expiration Date Visits Re quested Visits Authorized [id number] Closed 09/15/2020 09/16/2021 1 1 * Diagnostic Imaging (Routine) - Closed Specialty Diagnoses / Procedures Referred By Vineet t Referred To Contact Diagnoses Carcinoid tumor of ileum (HCC) Procedures MRI Pelvis w w/o contrast Ricci Carter MD [address] [place] [address] Referral ID Status Reason Start Date Expiration Date Visits Re quested Visits Authorized [id number] Closed 09/15/2020 09/16/2021 1 1 * Diagnostic Imaging (Routine) - Closed Specialty Diagnoses / Procedures Referred By Vineet t Referred To Contact Diagnoses Carcinoid tumor of ileum (HCC) Procedures MRI Abdomen w w/o contrast Ricci Carter MD [address] [place] [address] Referral ID Status Reason Start Date Expiration Date Visits Re quested Visits Authorized [id number] Closed 09/15/2020 09/16/2021 1 1 Encounter Details Date Type Department Care Team (Late st Contact Info) Description 09/15/2020 8:05 AM EDT Office Visit [facility]: Oncology and Hematology [address] [address] Ricci Carter MD [address] [address] Carcinoid tumor of ileum (Primary Dx); Diarrhea; Oncology follow-up encounter; Medical marijuana use; Heart palpitations; Encounter for monitoring octreotide therapy Social History Tobacco Use Types Packs/Day Years [...] have Coronavirus / COVID-19? No / Unsure 09/15/2020 7:59 AM EDT documented as of this encounter Last Filed Vital Signs Vital Sign Reading Time Taken Comments Blood Pressure 158/98 09/15/2020 8:19 AM EDT Pulse 82 09/15/2020 8:19 AM EDT Temperature 36.2 ??C (97.1 ??F) 09/15/2020 8:19 AM ED T Respiratory Rate - - Oxygen Saturation 99% 09/15/2020 8:19 AM EDT Inhaled Oxygen Concentration - - Weight 59.8 kg (131 lb 12.8 oz) 09/15/2020 8:19 AM EDT Height - - Body Mass Index 23.35 06/05/2020 8:47 AM EST documented in this encounter Progress Notes * Ricci Carter MD - 09/15/2020 8:30 AM EDT Images from the original note were not included. Medical Oncology/Hematology Progress Note Healthcare Team: Zohaib Aldana PA-C Subjective: Date of visit is: September 15, 2020 Rody Sotelo is a 50 y.o. female who presents here today for a follow- up visit regarding carcinoid. ONCOLOGY HISTORY: - December 16, 2019, colonoscopy was normal. Interim History: She continues to receive Sandostatin LAR. She is tolerating well. She received her last dose on . ?? She has been feeling fatigued. Had a negative tick panel few weeks ago. ?? She is sleeping a lot. Working a lot. She is staying active. ?? Regarding diarrhea, intermittent. Unchanged. Having 5-6 loose bowel movements per day. Taking loperamide: 12-16 tabs per day. Taking colestipol: once daily. Taking granisetron: daily. She has not required any morphine. Couple of weeks ago required 2 doses short acting octreotide. Not taking carafate every day. ?? No further abdominal pain. Ate a new gluten free recipe last night and is not feeling well. ?? Denies flushing. Pain: 0 REVIEW OF SYSTEMS: Review of Systems Constitutional: Positive for fatigue. Negative for appetite change (appetite is good) and unexpected weight change. HENT: Negative for mouth sores and nosebleeds. Respiratory: Negative for cough, shortness of breath and wheezing. Cardiovascular: Negative for leg swelling and palpitations. Gastrointestinal: Negative for blood in stool and rectal pain. Musculoskeletal: Negative for back pain. Skin: Negative for itching and rash. Neurological: Positive for headaches (migraines) and light-headedness (occasional). Negative for dizziness. Hematological: Does not bruise/bleed easily. Psychiatric/Behavioral: Positive [...] Disp: 120 tablet, Rfl: 5 ??? CREON [address] Particles capsule, 36,000 Units 3 (three) times a day with meals. , Disp: , Rfl: ??? ergotamine-caffeine (CAFERGOT) 1-100 MG per tablet, TAKE 1 TABLET BY MOUTH TWICE DAILY NEEDED, Disp: 12 tablet, Rfl: 3 ??? famotidine (PEPCID) 40 MG tablet, Take 40 mg by mouth daily. , Disp: , Rfl: ??? granisetron (KYTRIL) 1 [...] into the shoulder, thigh, or buttocks every 28 days (4 weeks)., Disp: , Rfl: ??? octreotide (SandoSTATIN) 100 MCG/ML injection, Inject 1 mL (100 mcg total) under the skin 3 times daily (every 8 hours) as needed (diarrhea, flushing)., Disp: 90 mL, Rfl: 11 ??? OMEprazole (PriLOSEC) 20 MG capsule, Take 20 mg by mouth every morning before breakfast., Disp:, Rfl: ??? ondansetron (ZOFRAN) 4 MG tablet, TAKE 1 TABLET BY MOUTH THREE TIMES DAILY NEEDED FOR NAUSEA, Disp: , Rfl: ??? rizatriptan (MAXALT-[employer]IGHW[employer] ENGINEERING TECHNICIAN) 10 MG disintegrating tablet, DISSOLVE ONE TABLET BY MOUTH EVERY DAY ASNEEDED, Disp: 9 tablet, Rfl: 0 ??? sucralfate (CARAFATE) 1 GM/10ML suspension, Take 10 mL (1 g total) by mouth 4 (four) times a day before meals and nightly. On an empty stomach., Disp: 420 mL, Rfl: 1 ??? Vitamin D3 (CHOLECALICEROL) 50 MCG (2000 UT) tablet, Take 2,000 Units by mouth daily., Disp: , Rfl: Past Medical History Past Medical History: Diagnosis Date ??? Cancer (HCC) ??? IBS (irritable bowel [...] Objective: Wt Readings from Last 2 Encounters: 09/15/20 59.8 kg (131 lb 12.8 oz) 08/28/20 59.5 kg (131 lb 3.2 oz) . Physical Exam Vitals: 09/15/20 0819 BP: (!) 158/98 BP Location: Left arm Pulse: 82 Temp: 97.1 ??F (36.2 ??C) TempSrc: Temporal SpO2: 99% Weight: 59.8 kg (131 lb 12.8 oz) Performance status: ECOG (0) Fully active, able to carry on all predisease performance without restriction Physical Exam Constitutional: General: She is not in acute distress. Appearance: She is well-developed. HENT: Head: Normocephalic and atraumatic. Eyes: General: No scleral icterus. Conjunctiva/sclera: Conjunctivae normal. Pupils: Pupils are equal, round, and reactive to light. Cardiovascular: Rate and Rhythm: Normal rate. Heart sounds: No murmur heard. Pulmonary: Effort: Pulmonary effort is normal. No respiratory distress. Breath sounds: Normal breath sounds. No wheezing or rales. Chest: Chest wall: No tenderness. Abdominal: General: Bowel sounds are normal. There is no distension. Palpations: Abdomen is soft. Abdomen is not rigid. There is no hepatomegaly, splenomegaly or mass. Tenderness: There is no abdominal tenderness. There is no guarding or rebound. Negative signs include Henderson's sign. Musculoskeletal: General: Normal range of motion. Cervical back: Normal range of motion and neck supple. Lymphadenopathy: Head: Right side of head: No submental, submandibular, preauricular, posterior auricular or occipital adenopathy. Left side of head: No submental, submandibular, preauricular, posterior auricular or occipital adenopathy. Cervical: No cervical adenopathy. Upper Body: Right upper body: No supraclavicular adenopathy. Left upper body: No supraclavicular adenopathy. Skin: General: Skin is warm and dry. Coloration: Skin is not pale. Findings: No erythema or rash. Nails: There is no clubbing. Neurological: Mental Status: She is alert and oriented to person, place, and time. Cranial Nerves: No cranial nerve deficit. Deep Tendon Reflexes: Reflexes are normal and symmetric. Psychiatric: Behavior: Behavior normal. Thought Content: Thought content normal. Judgment: Judgment normal. Results: Lab Results Component Value Date WBC 7.1 08/07/2020 HGB 11.5 (L) 08/07/2020 HCT 34.1 (L) 08/07/2020 MCV 85 08/07/2020 PLT 205 08/07/2020 Lab Results Component Value Date ALT 15 08/07/2020 AST 21 08/07/2020 ALKPHOS 63 08/07/2020 BILITOT 0.3 08/07/2020 Lab Results Component Value Date GLUC 83 08/07/2020 CALCIUM 9.2 08/07/2020 NA 136 08/07/2020 K 4.1 08/07/2020 CO2 26 08/07/2020 CL 102 08/07/2020 BUN 16 08/07/2020 CREAT 0.62 08/07/2020 Assessment/Plan: 1. Carcinoid, [id number] A. Diagnosed July 11, 2013 1. S/p small bowel resection and right hemicolectomy a. Path- well- differentiated neuroendocrine tumor B. Receiving Sandostatin LAR, initiated October 17, 2013 1. re- staging MR abdomen/pelvis (January 09, 2020)- SD In summary, Rody is a 50 y.o. female with a PMHx significant for: migraines, PCOS, IBS and PVCs whopresents here today for a follow- up visit regarding carcinoid. Rody is receiving Sandostatin LAR every 3 weeks for carcinoid. She received her last dose on August 28, 2020. She is tolerating Sandostatin well. She reports intermittent exacerbations of diarrhea, which is more than likely provoked by dietary noncompliance (dairy). She is without any clinical evidence of progression. Her palpitations have resolved entirely. Her abdominal pain has resolved since she stopped taking NSAIDs. I have recommended that she continue Sandostatin LAR at current dose. I recommended she consider anincrease in granisetron to 2 mg once daily, as well as increase colestipol to twice or three times daily dosing. We have also discussed maintaining dietary compliance and decreasing dairy intake or trying to avoid dairy altogether. For now she will continue loperamide. She did not tolerate Lomotil well. She will look into gettingparegoric compounded. I will refer her to dietitian for additional education. Continue Creon. I have ordered re- staging MRI of abdomen and pelvis. She will call to make an appointment for echocardiogram. Sandostatin LAR next week. 2. Use of medical marijuana Continue medical marijuana. 3. Palpitations On March 30, 2020, she was seen by cardiology. (the above information is being carried forward from prior records for informational purposes only and is being cited so that efficiency, safety, and quality of this patients' oncologic/hematologic care is not compromised) Resolved. She is in process of trying to schedule her ECHO and Holter. She did receive influenza vaccine 2019. Orders Placed This Encounter Procedures ??? MRI Abdomen w w/o contrast Standing Status: Future Number of Occurrences: 1 Standing Expiration Date: 09/15/2021 Order Specific Question: Reason for Exam: Answer: re- staging carcinoid, assess for change Order Specific Question: Release to Patient Answer: Immediate Release ??? MRI Pelvis w w/o contrast Standing Status: Future Number of Occurrences: 1 Standing Expiration Date: 09/15/2021 Order Specific Question: Reason for Exam: Answer: re- staging carcinoid, assess for change Order Specific Question: Release to Patient Answer: Immediate Release ??? MRI Abdomen w w/o contrast Standing Status: Future Number of Occurrences: 1 Standing Expiration Date: 09/15/2021 Order Specific Question: Reason for Exam: Answer: re staging carcinoid assess for change Order Specific Question: Release to Patient Answer: Immediate Release ??? MRI Pelvis w w/o contrast Standing Status: Future Number of Occurrences: 1 Standing Expiration Date: 09/15/2021 Order Specific Question: Reason for Exam: Answer: re staging carcinoid assess for change Order Specific Question: Release to Patient Answer: Immediate Release ??? Ambulatory referral to Nutrition Services Referral Priority: Routine Referral Type: Nutrition Services Referral Reason: Specialty Services Required Number of Visits Requested: 1 The patient will return in 6 weeks. There are no Patient Instructions on file for this visit. documented in this encounter Plan of Treatment Upcoming Encounters Date Type Department Care Team (Late st Contact Info) Description 11/13/2023 7:45 AM EDT Office Visit [facility] Medical Oncology at [address] [address] Ricci Carter MD [address] [place] [address] 11/13/2023 8:30 AM EDT Infusion [facility] [address] [address] Ricci Carter MD [address] [place] [address] Keiko Hallman MD [address] [facility] [place] [address] 11/20/2023 11:00 AM EDT Appointment [facility] Radiology [facility] [address] [place] [address] Ricci Carter MD [address] [place] [address] 11/20/2023 11:30 AM EDT Appointment [facility] Radiology [facility] [address] [place] [address] Ricci Carter MD [address] [place] [address] 03/05/2024 11:00 AM EST Consult [facility] [address] [place] [phone] Ricci Carter MD [address] [place] [address] Jamil Ralph MD [address] [facility] [address] [place] [address] 05/30/2024 9:00 AM EST Office Visit [facility] Department of Internal Medicine [facility] [address] [facility] [address] [place], [place] [phone] Zohaib Aldana PA-C [address] [facility] [address] [place] [id number] Scheduled Orders Name Type Priority Associated Diagnoses Orde r Schedule MRI Abdomen w w/o contrast Imaging Routine Carcinoid tumor of ileum Expected: 09/15/2020, Expires: 09/15/2021 MRI Pelvis w w/o contrast Imaging Routine Carcinoid tumor of ileum Expected: 09/15/2020, Expires: 09/15/2021 Scheduled Referrals Name Type Priority Associated Diagnoses Order Schedule Ambulatory referral to Nutrition Services Outpatient Referral Routine Carcinoid tumor of ileum Ordered: 09/15/2020 documented as of this encounter Procedures Procedure Name Priority Date/Time Associated Diagnosis Comments MRI ABDOMEN W W/O CONTRAST Routine 01/28/2021 9:23 AM EDT Carcinoid tumor of ileum MRI PELVIS W W/O CONTRAST Routine 01/28/2021 9:23 AM EDT Carcinoid tumor of ileum documented in this encounter Results * MRI Pelvis w w/o contrast (01/28/2021 9:23 AM EDT) Anatomical Region Laterality Modality Pelvis Magnetic Resonan ce 01/18/2021 9:00 PM EDT 01/18/2021 9:00 PM EDT Impressions 01/28/2021 9:23 AM EDT Stable appearance of the dominant lobulated enhancing mass in the right central mesentery measure 1.9 x 2.4 x 2.1 cm. A cluster of lymph nodes at the root of the mesentery appears slightly larger than on the 05/13/2019 examination. Thank you for referring your patient to us, Jhonatan Roman MD [id number] (Electronically Signed - 01/28/2021 09:23) Copy: ZOHAIB ALDANA PA-C [facility] [address] [facility] [address] [place] [address] Narrative 01/28/2021 9:23 AM EDT EXAMINATION: MRI ABDOMEN AND PELVIS WITH AND WITHOUT CONTRAST CLINICAL INFORMATION: Reason for Study: ??Benign carcinoid tumor of the ileum Restaging evaluation. COMPARISON: 05/13/2027 and 11/28/2018 TECHNIQUE: Multiple routine MRI sequences through the abdomen and pelvis were obtained before and after the uneventful administration of 5.5 mL of Gadavist gadolinium-based IV contrast. ?? FINDINGS: Image quality is technically degraded by motion artifact. LUNG BASES: No pleural or pericardial effusion. LIVER: Normal in size and contour. Normal signal intensity. Homogeneous enhancement. No focal hepatic lesion. GALLBLADDER AND BILIARY TREE: The gallbladder is surgically absent. No intrahepatic or extrahepatic biliary ductal dilatation. The common duct measures up to 8 mm at the aleksandra hepatis. SPLEEN: Not enlarged. PANCREAS: Normal contour. No ductal dilatation. ADRENAL GLANDS: No adrenal masses. KIDNEYS AND URETERS: Symmetric in size and enhancement. 1.8 x 2.0 cm cyst interpolar region of the right kidney. No hydronephrosis. No perinephric stranding. LYMPHOVASCULAR STRUCTURES: Normal caliber abdominal aorta. IVC is patent. Cluster of lymph nodes at the root of the mesentery measures 0.9 x 1.3 cm on image 88 of series 1801. Previous measurement was 0.9 x 0.9 cm. Again seen is a 1.9 x 2.4 x 2.1 cm lobulated enhancing mass in the right central mesentery, previously measuring 2.0 x 2.4 x 2.0 cm. BOWEL: Small and large bowel loops are of normal caliber. No small bowel obstruction. PELVIS: UTERUS: The uterus is anteverted. The endometrial stripe measures 9 mm in thickness. Junctional zone is normal in signal and thickness. Motion artifact limits evaluation. CERVIX: Unremarkable. VAGINA: Unremarkable. RIGHT OVARY: Not well visualized. LEFT OVARY: Normal follicular pattern. BLADDER: Decompressed. PELVIC FREE FLUID: Trace free fluid in the pelvis. Procedure Note Jhonatan Roman MD - 01/28/2021 EXAMINATION: MRI ABDOMEN AND PELVIS WITH AND WITHOUT CONTRAST CLINICAL INFORMATION: Reason for Study: Benign carcinoid tumor of the ileum Restaging evaluation. COMPARISON: 05/13/2027 and 11/28/2018 TECHNIQUE: Multiple routine MRI sequences through the abdomen and pelvis wereobtained before and after the uneventful administration of 5.5 mL of Gadavist gadolinium-based IV contrast. FINDINGS: Image quality is technically degraded by motion artifact. LUNG BASES: No pleural or pericardial effusion. LIVER: Normal in size and contour. Normal signal intensity. Homogeneous enhancement. No focal hepatic lesion. GALLBLADDER AND BILIARY TREE: The gallbladder is surgically absent. No intrahepatic or extrahepatic biliary ductal dilatation. The common duct measures up to 8 mm at the aleksandra hepatis. SPLEEN: Not enlarged. PANCREAS: Normal contour. No ductal dilatation. ADRENAL GLANDS: No adrenal masses. KIDNEYS AND URETERS: Symmetric in size and enhancement. 1.8 x 2.0 cmcyst interpolar region of the right kidney. No hydronephrosis. No perinephric stranding. LYMPHOVASCULAR STRUCTURES: Normal caliber abdominal aorta. IVC is patent. Cluster of lymph nodes at the root of the mesentery measures 0.9 x 1.3 cmon image 88 of series 1801. Previous measurement was 0.9 x 0.9 cm. Again seen is a 1.9 x 2.4 x 2.1 cm lobulated enhancing mass in the right central mesentery, previously measuring 2.0 x 2.4 x 2.0 cm. BOWEL: Small and large bowel loops are of normal caliber. No small bowel obstruction. PELVIS: UTERUS: The uterus is anteverted. The endometrial stripe measures 9 mmin thickness. Junctional zone is normal in signal and thickness. Motionartifact limits evaluation. CERVIX: Unremarkable. VAGINA: Unremarkable. RIGHT OVARY: Not well visualized. LEFT OVARY: Normal follicular pattern. BLADDER: Decompressed. PELVIC FREE FLUID: Trace free fluid in the pelvis. IMPRESSION: Stable appearance of the dominant lobulated enhancing mass in the right central mesentery measure 1.9 x 2.4 x 2.1 cm. A cluster of lymph nodes at the root of the mesentery appears slightlylarger than on the 05/13/2019 examination. Thank you for referring your patient to us, Jhonatan Roman MD [id number] (Electronically Signed - 01/28/2021 09:23) Copy: ZOHAIB ALDANA PA-C [facility] [address] [facility] [address] [place] [address] Ricci Carter MD [facility] [place] ORDERABLES * MRI Abdomen w w/o contrast (01/28/2021 9:23 AM EDT) Anatomical Region Laterality Modality Abdomen Magnetic Resonan ce 01/18/2021 8:30 PM EDT 01/18/2021 8:30 PM EDT Impressions 01/28/2021 9:23 AM EDT Stable appearance of the dominant lobulated enhancing mass in the right central mesentery measure 1.9 x 2.4 x 2.1 cm. A cluster of lymph nodes at the root of the mesentery appears slightly larger than on the 05/13/2019 examination. Thank you for referring your patient to us, Jhonatan Roman MD [id number] (Electronically Signed - 01/28/2021 09:23) Copy: ZOHAIB ALDANA PA-C [facility] [address] [place], [place] [id number] Narrative 01/28/2021 9:23 AM EDT EXAMINATION: MRI ABDOMEN AND PELVIS WITH AND WITHOUT CONTRAST CLINICAL INFORMATION: Reason for Study: ??Benign carcinoid tumor of the ileum Restaging evaluation. COMPARISON: 05/13/2027 and 11/28/2018 TECHNIQUE: Multiple routine MRI sequences through the abdomen and pelvis were obtained before and after the uneventful administration of 5.5 mL of Gadavist gadolinium-based IV contrast. ?? FINDINGS: Image quality is technically degraded by motion artifact. LUNG BASES: No pleural or pericardial effusion. LIVER: Normal in size and contour. Normal signal intensity. Homogeneous enhancement. No focal hepatic lesion. GALLBLADDER AND BILIARY TREE: The gallbladder is surgically absent. No intrahepatic or extrahepatic biliary ductal dilatation. The common duct measures up to 8 mm at the aleksandra hepatis. SPLEEN: Not enlarged. PANCREAS: Normal contour. No ductal dilatation. ADRENAL GLANDS: No adrenal masses. KIDNEYS AND URETERS: Symmetric in size and enhancement. 1.8 x 2.0 cm cyst interpolar region of the right kidney. No hydronephrosis. No perinephric stranding. LYMPHOVASCULAR STRUCTURES: Normal caliber abdominal aorta. IVC is patent. Cluster of lymph nodes at the root of the mesentery measures 0.9 x 1.3 cm on image 88 of series 1801. Previous measurement was 0.9 x 0.9 cm. Again seen is a 1.9 x 2.4 x 2.1 cm lobulated enhancing mass in the right central mesentery, previously measuring 2.0 x 2.4 x 2.0 cm. BOWEL: Small and large bowel loops are of normal caliber. No small bowel obstruction. PELVIS: UTERUS: The uterus is anteverted. The endometrial stripe measures 9 mm in thickness. Junctional zone is normal in signal and thickness. Motion artifact limits evaluation. CERVIX: Unremarkable. VAGINA: Unremarkable. RIGHT OVARY: Not well visualized. LEFT OVARY: Normal follicular pattern. BLADDER: Decompressed. PELVIC FREE FLUID: Trace free fluid in the pelvis. Procedure Note Jhonatan Roman MD - 01/28/2021 EXAMINATION: MRI ABDOMEN AND PELVIS WITH AND WITHOUT CONTRAST CLINICAL INFORMATION: Reason for Study: Benign carcinoid tumor of the ileum Restaging evaluation. COMPARISON: 05/13/2027 and 11/28/2018 TECHNIQUE: Multiple routine MRI sequences through the abdomen and pelvis wereobtained before and after the uneventful administration of 5.5 mL of Gadavist gadolinium-based IV contrast. FINDINGS: Image quality is technically degraded by motion artifact. LUNG BASES: No pleural or pericardial effusion. LIVER: Normal in size and contour. Normal signal intensity. Homogeneous enhancement. No focal hepatic lesion. GALLBLADDER AND BILIARY TREE: The gallbladder is surgically absent. No intrahepatic or extrahepatic biliary ductal dilatation. The common duct measures up to 8 mm at the aleksandra hepatis. SPLEEN: Not enlarged. PANCREAS: Normal contour. No ductal dilatation. ADRENAL GLANDS: No adrenal masses. KIDNEYS AND URETERS: Symmetric in size and enhancement. 1.8 x 2.0 cmcyst interpolar region of the right kidney. No hydronephrosis. No perinephric stranding. LYMPHOVASCULAR STRUCTURES: Normal caliber abdominal aorta. IVC is patent. Cluster of lymph nodes at the root of the mesentery measures 0.9 x 1.3 cmon image 88 of series 1801. Previous measurement was 0.9 x 0.9 cm. Again seen is a 1.9 x 2.4 x 2.1 cm lobulated enhancing mass in the right central mesentery, previously measuring 2.0 x 2.4 x 2.0 cm. BOWEL: Small and large bowel loops are of normal caliber. No small bowel obstruction. PELVIS: UTERUS: The uterus is anteverted. The endometrial stripe measures 9 mmin thickness. Junctional zone is normal in signal and thickness. Motionartifact limits evaluation. CERVIX: Unremarkable. VAGINA: Unremarkable. RIGHT OVARY: Not well visualized. LEFT OVARY: Normal follicular pattern. BLADDER: Decompressed. PELVIC FREE FLUID: Trace free fluid in the pelvis. IMPRESSION: Stable appearance of the dominant lobulated enhancing mass in the right central mesentery measure 1.9 x 2.4 x 2.1 cm. A cluster of lymph nodes at the root of the mesentery appears slightlylarger than on the 05/13/2019 examination. 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
--- OUTSIDE RECORDS SUMMARY | 2023-10-29 17:49 | XMS_ITS | Encounter Summary ---
Author Organization [facility] Address 100 [place] [address] Care Team Providers Care Enamel Applier Name Role Phone Consuelo Hobbs PA-C Primary Care Provider Madi Sharp MD Unavailable [phone] Encounter Details Date Type Department Care Team (Latest Contact Info) Description 11/27/2020 Travel Social History Tobacco Use Types Packs/Day [...] have Coronavirus / COVID-19? No / Unsure 11/27/2020 9:47 AM EDT documented as of this encounter Plan of Treatment Upcoming Encounters Date Type Department Care Team ( st Contact Info) Description 11/13/2023 7:45 AM EDT Office Visit [facility] [place] Medical Oncology at [address] [phone] Ricci Carter MD 85 [place] [address] 11/13/2023 8:30 AM EDT Infusion [facility] [place] at [facility] Outpatient Infusion Center [address] [phone] Ricci Carter MD [address] [place] [phone] Keiko Hallman MD 80 [facility] [place] [address] 11/20/2023 11:00 AM EDT Appointment [facility] Radiology Sh[facility] Mammography [address] [place] [address] [phone] Ricci Carter MD [address] [place] [id number] 11/20/2023 11:30 AM EDT Appointment [facility] Radiology [facility] Mammography 35 [place] [phone] Ricci Carter MD [address] [place], [place] [phone] 03/05/2024 11:00 AM EST Consult [facility] Cardiology [address] [place] [phone] Ricci Carter MD [address] [place], [place] [phone] Jamil Ralph MD [address] [place] [facility] [address] [place], [place] [phone] 05/30/2024 9:00 AM EST Office Visit [facility] Department of Internal Medicine [facility] [address] [phone] Consuelo Hobbs PA-C [address] [phone] documented as of this encounter Visit Diagnoses Not on filedocumented in this encounter Care Teams Enamel Applier Relationship Specialty Start Date End Date Consuelo Hobbs PA-C [address] [place] [phone] PCP - General 05/01/19 Madi Sharp MD [address] [place] [address] Gastroenterology 10/02/19 documented as of this encounter
--- OUTSIDE RECORDS SUMMARY | 2023-10-29 17:49 | XMS_ITS | Encounter Summary ---
Author Organization [facility] Address [address] [place] [address] Care Team Providers Care Unit Nurse Name Role Phone Consuelo Hobbs PA-C Primary Care Provider Madi Sharp MD Unavailable [phone] Encounter Details Date Type Department Care Team (Late st Contact Info) Description 03/09/2021 Orders Only [facility] Cancer [place] Medical Oncology at [address] [phone] Ricci Carter MD [address] [place] [address] Social History Tobacco Use Types Packs/Day Years [...] Visit [facility] Medical Oncology at [address] [phone] Ricci Carter MD [address] [place], [place] [phone] 11/13/2023 8:30 AM EDT Infusion [facility] [place] at [facility] Outpatient Infusion Center [address] [phone] Ricci Carter MD [address] [place], [place] [phone] Keiko Hallman MD [address] [facility] [place] [address] 11/20/2023 11:00 AM EDT Appointment [facility] Radiology Shay Mammography [address] [place] [address] [phone] Ricci Carter MD [address] [place], [place] [phone] 11/20/2023 11:30 AM EDT Appointment [facility] Radiology Sh[facility] Mammography [address] [place] [address] [phone] Ricci Carter MD [address] [place], [place] [phone] 03/05/2024 11:00 AM EST Consult [facility] Cardiology [address] [place] [address] [phone] Ricci Carter MD [address] [place] [address] Jamil Ralph MD [address] [place] [facility] [address] [place] [address] 05/30/2024 9:00 AM EST Office Visit [facility] Department of Internal Medicine [facility] 1210 [facility] 109 [place] [address] Consuelo Hobbs PA-C [address] [address] documented as of this encounter Visit Diagnoses Not on filedocumented in this encounter Care Teams Unit Nurse Relationship Specialty Start Date End Date Consuelo Hobbs PA-C [address] [place] [address] PCP - General 05/01/19 Madi Sharp MD [address] [place] [address] Gastroenterology 10/02/19 documented as of this encounter
--- OUTSIDE RECORDS SUMMARY | 2023-10-29 17:49 | XMS_ITS | Encounter Summary ---
Author Organization [facility] Address 100 [place] [address] Care Team Providers Care Marketing Summer Intern Name Role Phone Consuelo Hobbs PA-C Primary Care Provider Madi Sharp MD Unavailable [phone] Reason for Visit * Episode Based Medications (Routine) - Authorized Specialty Diagnoses / Procedures Referred By Contac t Referred To Contact Diagnoses Carcinoid tumor of ileum, unspecified whether malignant (HCC) Keiko Hallman MD 80 [facility] [place] [address] [address] [phone] Referral ID Status Reason Start Date Expiration Date V isits Requested Visits Authorized [id number] Authorized 04/29/2022 11/27/2023 5 2 Encounter Details Date Type Department Care Team (Late st Contact Info) Description 08/28/2020 8:30 AM EDT Infusion [facility] Cancer [place] at [facility] Outpatient Infusion Center [address] [phone] Ricci Carter MD [address] [place] [address] Keiko Hallman MD 80 [facility] [place] [address] Kait Lux RN [address] [place] [address] Carcinoid tumor of ileum, unspecified whether malignant [...] have Coronavirus / COVID-19? No / Unsure 08/28/2020 8:22 AM EDT documented as of this encounter Last Filed Vital Signs Vital Sign Reading Time Taken Comments Blood Pressure 140/63 08/28/2020 8:28 AM EDT Pulse 63 08/28/2020 8:28 AM EDT Temperature 36.1 ??C (97 ??F) 08/28/2020 8:28 AM EDT Respiratory Rate 16 08/28/2020 8:28 AM EDT Oxygen Saturation 100% 08/28/2020 8:28 AM EDT Inhaled Oxygen Concentration - - Weight 59.5 kg (131 lb 3.2 oz) 08/28/2020 8:28 A M EDT Height - - Body Mass Index 23.25 06/05/2020 8:47 AM EST documented in this encounter Plan of Treatment Upcoming Encounters Date Type Department Care Team (Late st Contact Info) Description 11/13/2023 7:45 AM EDT Office Visit [facility] [place] Medical Oncology at [address] [phone] Ricci Carter MD [address] [place] [phone] 11/13/2023 8:30 AM EDT Infusion [facility] [place] at [facility] Outpatient Infusion Center [address] [phone] Ricci Carter MD [address] [place], [place] [phone] Keiko Hallman MD 80 [facility] [place] [address] 11/20/2023 11:00 AM EDT Appointment [facility] Radiology Sh[facility] Mammography [address] [place] [address] [phone] Ricci Carter MD [address] [place] [phone] 11/20/2023 11:30 AM EDT Appointment [facility] Radiology [facility] Mammography 35 [place] [phone] Ricci Carter MD [address] [place], [place] [phone] 03/05/2024 11:00 AM EST Consult [facility] Cardiology [address] [place] [phone] Ricci Carter MD [address] [place], [place] [phone] Jamil Ralph MD [address] [place] [facility] [place] [address] [place], [place] [phone] 05/30/2024 9:00 AM EST Office Visit [facility] Department of Internal [facility] 1210 [facility] 109 [place], [place] [phone] Consuelo Hobbs PA-C [address] [phone] documented as of this encounter Visit Diagnoses Diagnosis Carcinoid tumor of ileum, unspecified whether malignant (HCC)- Primary documented in this encounter Administered Medications Inactive Administered Medications - up to 1 most recent administrations Medication Order MAR Action Action Date Dose Rate Site octreotide (SandoSTATIN LAR) IM injection 40 mg 40 mg, Intramuscular, Once, On Mon08/28/20 at 0930, For 1 dose, Administer IM intragluteal (avoid deltoid administration). For intraMUSCULAR use ONLY. Must be administered immediately after mixing. Given 08/28/2020 8:49 AM EDT 40 mg Other (See Comments) documented in this encounter Care Teams Marketing Summer Intern Relationship Specialty Start Date End Date Consuelo Hobbs PA-C [address] [place] [phone] PCP - General 05/01/19 Madi Sharp MD [address] [place], [place] [phone] Gastroenterology 10/02/19 documented as of this encounter
--- OUTSIDE RECORDS SUMMARY | 2023-10-29 17:49 | XMS_ITS | Encounter Summary ---
Author Organization [facility] Address [address] [place] [address] Care Team Providers Care Ladle Repairer Name Role Phone Consuelo Hobbs PA-C Primary Care Provider Madi Sharp MD Unavailable [phone] Reason for Visit * Reason Comments Injections * Episode Based Medications (Routine) - Authorized Specialty Diagnoses / Procedures Referred By Contbalbir t Referred To Contact Diagnoses Carcinoid tumor of ileum, unspecified whether malignant (HCC) Keiko Hallman MD 80 [facility] [place] [address] Med Onc Ci [address] [phone] Referral ID Status Reason Start Date Expiration Date V isits Requested Visits Authorized [id number] Authorized 04/29/2022 11/27/2023 5 2 Encounter Details Date Type Department Care Team (Late st Contact Info) Description 12/15/2020 8:15 AM EDT Infusion [facility] [place] at [facility] Outpatient Infusion Center [address] [phone] Ricci Carter MD [address] [place] [address] Keiko Hallman MD 80 [facility] [place] [address] Carcinoid tumor of ileum, unspecified whether malignant [...] have Coronavirus / COVID-19? No / Unsure 12/15/2020 8:19 AM EDT documented as of this encounter Last Filed Vital Signs Vital Sign Reading Time Taken Comments Blood Pressure 123/82 12/15/2020 8:24 AM EDT Pulse 79 12/15/2020 8:24 AM EDT Temperature 36.1 ??C (96.9 ??F) 12/15/2020 8:24 AM ED T Respiratory Rate 16 12/15/2020 8:24 AM EDT Oxygen Saturation 100% 12/15/2020 8:24 AM EDT Inhaled Oxygen Concentration - - Weight 60.3 kg (133 lb) 12/15/2020 8:24 AM EDT Height - - Body Mass Index 23.57 06/05/2020 8:47 AM EST documented in this encounter Plan of Treatment Upcoming Encounters Date Type Department Care Team (Late st Contact Info) Description 11/13/2023 7:45 AM EDT Office Visit [facility] Cancer [place] Medical Oncology at [address] [phone] Ricci Carter MD [address] [place] [address] 11/13/2023 8:30 AM EDT Infusion [facility] [place] at [facility] Outpatient Infusion Center [address] [phone] Ricci Carter MD [address] [place] [address] Keiko Hallman MD 80 [facility] [place] [address] 11/20/2023 11:00 AM EDT Appointment [facility] Radiology Shay Mammography [address] [place] [phone] Ricci Carter MD [address] [place], [place] [phone] 11/20/2023 11:30 AM EDT Appointment [facility] Radiology Sh[facility] Mammography [address] [place] [phone] Ricci Carter MD [address] [place] [address] 03/05/2024 11:00 AM EST Consult [facility] Medical Group Cardiology [address] [place] [phone] Ricci Carter MD [address] [place], [place] [phone] Jamil Ralph MD [address] [place] [facility] [address] [place] [address] 05/30/2024 9:00 AM EST Office Visit [facility] Department of Internal Medicine [address] [place], [place] [phone] Consuelo Hobbs PA-C [address] [phone] documented as of this encounter Visit Diagnoses Diagnosis Carcinoid tumor of ileum, unspecified whether malignant (HCC)- Primary documented in this encounter Administered Medications Inactive Administered Medications - up to 1 most recent administrations Medication Order MAR Action Action Date Dose Rate Site octreotide (SandoSTATIN LAR) IM injection 40 mg 40 mg, Intramuscular, Once, On Mon12/15/20 at 0900, For 1 dose, Administer IM intragluteal (avoid deltoid administration). For intraMUSCULAR use ONLY. Must be administered immediately after mixing. Given 12/15/2020 8:33 AM EDT 40 mg Left Gluteal Upper Outer Quadrant documented in this encounter Care Teams Ladle Repairer Relationship Specialty Start Date End Date Consuelo Hobbs PA-C [address] [place] [phone] PCP - General 05/01/19 Madi Sharp MD [address] [place] [address] Gastroenterology 10/02/19 documented as of this encounter
--- OUTSIDE RECORDS SUMMARY | 2023-10-29 17:49 | XMS_ITS | Encounter Summary ---
Author Organization [facility] Address 100 [place] [address] Care Team Providers Care Log Buyer Name Role Phone Consuelo Hobbs PA-C Primary Care Provider Madi Sharp MD Unavailable [phone] Encounter Details Date Type Department Care Team (Late st Contact Info) Description 08/26/2020 Scanned Document [facility] Cancer [place] Medical Oncology at [address] [phone] Ricci Carter MD 85 [place] [address] Social History Tobacco Use Types Packs/Day Years [...] 11/13/2023 7:45 AM EDT Office Visit [facility] Medical Oncology at [address] [phone] Ricci Carter MD 85 [place] [address] 11/13/2023 8:30 AM EDT Infusion [facility] Cancer [place] at [facility] Outpatient Infusion Center [address] [phone] Ricci Carter MD [address] [place], [place] [phone] Keiko Hallman MD 80 [facility] [place] [address] 11/20/2023 11:00 AM EDT Appointment [facility] Radiology Shay Mammography [address] [place] [address] [phone] Ricci Carter MD [address] [place], [place] [phone] 11/20/2023 11:30 AM EDT Appointment [facility] Radiology Shay Mammography [address] [place] [address] [phone] Ricci Carter MD [address] [place], [place] [phone] 03/05/2024 11:00 AM EST Consult [facility] Cardiology [address] [place] [address] [phone] Ricci Carter MD [address] [place] [address] Jamil Ralph MD 100 [address] [facility] [address] [place] [address] 05/30/2024 9:00 AM EST Office Visit [facility] Department of Internal Medicine [facility] 1210 [facility] 109 [place] [address] Consuelo Hobbs PA-C [address] [address] documented as of this encounter Visit Diagnoses Not on filedocumented in this encounter Care Teams Log Buyer Relationship Specialty Start Date End Date Consuelo Hobbs PA-C [address] [place] [address] PCP - General 05/01/19 Madi Sharp MD [address] [place] [address] Gastroenterology 10/02/19 documented as of this encounter
--- OUTSIDE RECORDS SUMMARY | 2023-10-29 17:49 | XMS_ITS | Encounter Summary ---
Author Organization [facility] Address [address] [place] [address] Care Team Providers Care Glassware Maker Name Role Phone Consuelo Hobbs PA-C Primary Care Provider Madi Sharp MD Unavailable [phone] Encounter Details Date Type Department Care Team (Late st Contact Info) Description 02/16/2021 8:00 AM EST Infusion [facility] Cancer [place] at [facility] Outpatient Infusion Center [place] [address] [place] [phone] Ricci Carter MD [address] [place] [address] Keiko Hallman MD 80 [facility] [place] [address] Alissa Sánchez RN 376 [facility] [address] [place] [address] Carcinoid tumor of ileum, unspecified whether malignant [...] have Coronavirus / COVID-19? No / Unsure 02/16/2021 8:06 AM EST documented as of this encounter Last Filed Vital Signs Vital Sign Reading Time Taken Comments Blood Pressure 120/70 02/16/2021 8:17 AM EST Pulse 92 02/16/2021 8:17 AM EST Temperature 36.3 ??C (97.3 ??F) 02/16/2021 8:17 AM ES T Respiratory Rate 14 02/16/2021 8:17 AM EST Oxygen Saturation 100% 02/16/2021 8:17 AM EST Inhaled Oxygen Concentration - - Weight 60.3 kg (133 lb) 02/16/2021 8:17 AM EST Height - - Body Mass Index 23.57 06/05/2020 8:47 AM EST documented in this encounter Plan of Treatment Upcoming Encounters Date Type Department Care Team (Late st Contact Info) Description 11/13/2023 7:45 AM EDT Office Visit [facility] Medical Oncology at [address] [phone] Ricci Carter MD [address] [place] [address] 11/13/2023 8:30 AM EDT Infusion [facility] Cancer [place] at [facility] Outpatient Infusion Center [address] [phone] Ricci Carter MD [address] [place] [address] Keiko Hallman MD 80 [facility] [place] [address] 11/20/2023 11:00 AM EDT Appointment [facility] Radiology Shay Mammography [address] [place] [phone] Ricci Carter MD [address] [place], [place] [phone] 11/20/2023 11:30 AM EDT Appointment [facility] Radiology [place] [facility]amm[facility] [address] [place] [phone] Ricci Carter MD [address] [place] [phone] 03/05/2024 11:00 AM EST Consult [facility] Cardiology [address] [place] [phone] Ricci Carter MD [address] [place], [place] [phone] Jamil Ralph MD [address] [place] [facility] [address] [place] [address] 05/30/2024 9:00 AM EST Office Visit [facility] Department of Internal Medicine [facility] 1210 [facility] [address] [place], [place] [phone] Consuelo Hobbs PA-C 1210 [facility] [address] [place], [place] [phone] documented as of this encounter Visit Diagnoses Diagnosis Carcinoid tumor of ileum, unspecified whether malignant (HCC)- Primary documented in this encounter Administered Medications Inactive Administered Medications - up to 1 most recent administrations Medication Order MAR Action Action Date Dose Rate Site octreotide (SandoSTATIN LAR) IM injection 40 mg 40 mg, Intramuscular, Once, On 02/16/21 at 0900, For 1 dose, Administer IM intragluteal (avoid deltoid administration). For intraMUSCULAR use ONLY. Must be administered immediately after mixing. Given 02/16/2021 8:20 AM EST 40 mg Left Gluteal Upper Outer Quadrant documented in this encounter Care Teams Glassware Maker Relationship Specialty Start Date End Date Consuelo Hobbs PA-C [facility] [address] [address] PCP - General 05/01/19 Madi Sharp MD [address] [address] Gastroenterology 10/02/19 documented as of this encounter
--- OUTSIDE RECORDS SUMMARY | 2023-10-29 17:49 | XMS_ITS | Encounter Summary ---
Author Organization [facility] Address 100 [place] [address] Care Team Providers Care Jewel Supervisor Name Role Phone Consuelo Hobbs PA-C Primary Care Provider Madi Sharp MD Unavailable [phone] Reason for Visit * Reason Onset Date Comments Medication Refill 01/19/2021 Encounter Details Date Type Department Care Team (Late st Contact Info) Description 01/19/2021 Refill [facility] Cancer [place]: Oncology and Hematology [address] [phone] Ricci Carter MD [address] [place] [address] Carcinoid tumor of ileum Social History Tobacco [...] [facility] Medical Oncology at [address] [phone] Ricci Carter MD [address] [place] [address] 11/13/2023 8:30 AM EDT Infusion [facility] Cancer [place] at [facility] Outpatient Infusion Center [address] [phone] Ricci Carter MD [address] [place] [address] Keiko Hallman MD 80 [facility] [place] [address] 11/20/2023 11:00 AM EDT Appointment [facility] Radiology Shay Mammography [address] [place] [phone] Ricci Carter MD [address] [place] [address] 11/20/2023 11:30 AM EDT Appointment [facility] Radiology Shay Mammography [address] [place] [phone] Ricci Carter MD [address] [place] [address] 03/05/2024 11:00 AM EST Consult [facility] Cardiology [address] [place] [phone] Ricci Carter MD [address] [place] [address] Jamil Ralph MD [address] [place] [facility] [address] [place] [address] 05/30/2024 9:00 AM EST Office Visit [facility] Department of Internal Medicine [facility] 1210 [facility] [address] [place] [address] Consuelo Hobbs PA-C 1210 [facility] 109 [place] [address] documented as of this encounter Visit Diagnoses Diagnosis Carcinoid tumor of ileum (HCC) documented in this encounter Care Teams Jewel Supervisor Relationship Specialty Start Date End Date Consuelo Hobbs PA-C 1210 [facility] 109 [place] [address] PCP - General 05/01/19 Madi Sharp MD [address] [address] Gastroenterology 10/02/19 documented as of this encounter
--- OUTSIDE RECORDS SUMMARY | 2023-10-29 17:49 | XMS_ITS | Encounter Summary ---
Author Organization [facility] Address [address] [place] [address] Care Team Providers Care Agricultural Equipment Design Engineer Name Role Phone Consuelo Hobbs PA-C Primary Care Provider Madi Sharp MD Unavailable [phone] Encounter Details Date Type Department Care Team (Latest Contact Info) Description 09/15/2020 Travel Social History Tobacco Use Types Packs/Day [...] EDT Office Visit [facility] [place] [facility] Oncology at [address] [phone] Ricci Carter MD [address] [place] [address] 11/13/2023 8:30 AM EDT Infusion [facility] [place] [facility] [address] [phone] Ricci Carter MD [address] [place], [place] [phone] Keiko Hallman MD 80 [facility] [place] [address] 11/20/2023 11:00 AM EDT Appointment [facility] Radiology Shay Mammography [address] [place] [address] [phone] Ricci Carter MD [address] [place], [place] [id number] 11/20/2023 11:30 AM EDT Appointment [facility] Radiology Sh[facility] Mammography [address] [place] [phone] Ricci Carter MD [address] [place], [place] [id number] 03/05/2024 11:00 AM EST Consult [facility] Cardiology [address] [place] [phone] Ricci Carter MD [address] [place], [place] [phone] Jamil Ralph MD [address] [facility] [address] [place], [place] [phone] 05/30/2024 9:00 AM EST Office Visit [facility] Department of Internal Medicine [facility] [address] [phone] Consuelo Hobbs PA-C [address] [phone] documented as of this encounter Visit Diagnoses Not on filedocumented in this encounter Care Teams Agricultural Equipment Design Engineer Relationship Specialty Start Date End Date Consuelo Hobbs PA-C [address] [place] [address] [phone] PCP - General 05/01/19 Madi Sharp MD [address] [place] [address] Gastroenterology 10/02/19 documented as of this encounter
--- OUTSIDE RECORDS SUMMARY | 2023-10-29 17:49 | XMS_ITS | Encounter Summary ---
Author Organization [facility] Address [address] [place] [address] Care Team Providers Care Cheese Production Supervisor Name Role Phone Consuelo Hobbs PA-C Primary Care Provider Madi Sharp MD Unavailable [phone] Encounter Details Date Type Department Care Team (Latest Contact Info) Description 03/09/2021 Travel Social History Tobacco Use Types Packs/Day [...] 11/13/2023 7:45 AM EDT Office Visit [facility] [place] [facility] Oncology at [address] [phone] Ricci Carter MD [address] [place] [address] 11/13/2023 8:30 AM EDT Infusion [facility] [place] [facility] Out[facility]fusion [facility] [address] [phone] Ricci Carter MD [address] [place], [place] [phone] Keiko Hallman MD 80 [facility] [place] [address] 11/20/2023 11:00 AM EDT Appointment [facility] Radiology Shay Mammography [address] [place] [phone] Ricci Carter MD [address] [place], [place] [phone] 11/20/2023 11:30 AM EDT Appointment [facility] Radiology Shay Mammography 35 [place] [phone] Ricci Carter MD [address] [place], [place] [phone] 03/05/2024 11:00 AM EST Consult [facility] Cardiology [address] [place] [phone] Ricci Carter MD [address] [place], [place] [phone] Jamil Ralph MD [address] [place], [place] [phone] 05/30/2024 9:00 AM EST Office Visit [facility] Department [facility] [address] [phone] Consuelo Hobbs PA-C [address] [phone] documented as of this encounter Visit Diagnoses Not on filedocumented in this encounter Care Teams Cheese Production Supervisor Relationship Specialty Start Date End Date Consuelo Hobbs PA-C [address] [place] [address] [id number] PCP - General 05/01/19 Madi Sharp MD [address] [place] [address] Gastroenterology 10/02/19 documented as of this encounter
--- OUTSIDE RECORDS SUMMARY | 2023-10-29 17:49 | XMS_ITS | Encounter Summary ---
Author Organization [facility] Address [address] [place] [address] Care Team Providers Care Disposal Man Name Role Phone Consuelo Hobbs PA-C Primary Care Provider Madi Sharp MD Unavailable [phone] Encounter Details Date Type Department Care Team (Latest Contact Info) Description 02/16/2021 Travel Social History Tobacco Use Types Packs/Day [...] Office Visit [facility] [place] [facility] Oncology at [address] [phone] Ricci Carter MD [address] [place] [address] 11/13/2023 8:30 AM EDT Infusion [facility] [place] at Outpatient Infusion Center [address] [phone] Ricci Carter MD [address] [place] [phone] Keiko Hallman MD [address] [facility] [place] [address] 11/20/2023 11:00 AM EDT Appointment [facility] Radiology Shay Mammography [address] [place] [address] [phone] Ricci Carter MD [address] [place] [phone] 11/20/2023 11:30 AM EDT Appointment [facility] Radiology Shay Mammography 35 [place] [phone] Ricci Carter MD [address] [place] [phone] 03/05/2024 11:00 AM EST Consult [facility] Cardiology [address] [place] [phone] Ricci Carter MD [address] [place], [place] [phone] Jamil Ralph MD [address] [place], [place] [phone] 05/30/2024 9:00 AM EST Office Visit [facility] Department of Internal [facility] [address] [phone] Consuelo Hobbs PA-C [address] [phone] documented as of this encounter Visit Diagnoses Not on filedocumented in this encounter Care Teams Disposal Man Relationship Specialty Start Date End Date Consuelo Hobbs PA-C [address] [place] [address] [phone] PCP - General 05/01/19 Madi Sharp MD [address] [place] [address] Gastroenterology 10/02/19 documented as of this encounter
--- OUTSIDE RECORDS SUMMARY | 2023-10-29 17:49 | XMS_ITS | Encounter Summary ---
Author Organization [facility] Address [address] [place] [address] Care Team Providers Care Recreation Superintendent Name Role Phone Consuelo Hobbs PA-C Primary Care Provider Madi Sharp MD Unavailable [phone] Encounter Details Date Type Department Care Team (Late st Contact Info) Description 11/09/2020 Telephone HH NUTR [facility] 85 [facility] [address] [place] [address] Suma Tran, RD 80 [place] [address] Social History Tobacco Use Types Packs/Day Years [...] have Coronavirus / COVID-19? No / Unsure 11/03/2020 12:33 PM EDT documented as of this encounter Miscellaneous Notes * Telephone Encounter - Suma Tran RD - 11/09/2020 2:23 PM EDT Referral received and appreciated. TC placed to pt, received VM. Left message stating reason for call with return contact information. documented in this encounter Plan of Treatment Upcoming Encounters Date Type Department Care Team (Late st Contact Info) Description 11/13/2023 7:45 AM EDT Office Visit [facility] Medical Oncology at [address] [phone] Ricci aCrter MD [address] [place] [address] 11/13/2023 8:30 AM EDT Infusion [facility] Cancer [place] at [facility] Outpatient Infusion Center [address] [phone] Ricci Carter MD [address] [place] [address] Keiko Hallman MD 80 [facility] [place] [address] 11/20/2023 11:00 AM EDT Appointment [facility] Radiology Shay Mammography [address] [place] [phone] Ricci Carter MD [address] [place] [address] 11/20/2023 11:30 AM EDT Appointment [facility] Radiology Shay Mammography [address] [place] [address] [phone] Ricci Carter MD [address] [place] [address] 03/05/2024 11:00 AM EST Consult [facility] Cardiology [place] [address] [facility] [address] [place] [phone] Ricci Carter MD [address] [place] [address] Jamil Ralph MD [address] [facility] [address] [place], [place] [phone] 05/30/2024 9:00 AM EST Office Visit [facility] Department of Internal Medicine [facility] 1210 [facility] [address] [place] [address] Consuelo Hobbs PA-C 1210 [facility] 109 [place] [address] documented as of this encounter Visit Diagnoses Not on filedocumented in this encounter Care Teams Recreation Superintendent Relationship Specialty Start Date End Date Consuelo Hobbs PA-C [address] [place] [address] PCP - General 05/01/19 Madi Sharp MD [address] [address] Gastroenterology 10/02/19 documented as of this encounter
--- OUTSIDE RECORDS SUMMARY | 2023-10-29 17:49 | XMS_ITS | Encounter Summary ---
Author Organization [facility] Address [address] [place] [address] Care Team Providers Care Men'S Golf Coach Name Role Phone Consuelo Hobbs PA-C Primary Care Provider Madi Sharp MD Unavailable [phone] Encounter Details Date Type Department Care Team (Latest Contact Info) Description 10/09/2020 Travel Social History Tobacco Use Types Packs/Day [...] have Coronavirus / COVID-19? No / Unsure 10/09/2020 8:07 AM EDT documented as of this encounter Plan of Treatment Upcoming Encounters Date Type Department Care Team ( st Contact Info) Description 11/13/2023 7:45 AM EDT Office Visit [facility] [place] Medical Oncology at [address] [phone] Ricci Carter MD [address] [place] [address] 11/13/2023 8:30 AM EDT Infusion [facility] [place] at [facility] Outpatient Infusion Center [address] [phone] Ricci Carter MD [address] [place] [phone] Keiko Hallman MD 80 [facility] [place] [address] 11/20/2023 11:00 AM EDT Appointment [facility] Radiology Shay Mammography [address] [place] [address] [phone] Ricci Carter MD [address] [place] [phone] 11/20/2023 11:30 AM EDT Appointment [facility] Radiology Shay Mammography 35 [place] [phone] Ricci Carter MD [address] [place], [place] [phone] 03/05/2024 11:00 AM EST Consult [facility] Cardiology [address] [place] [phone] Ricci Carter MD [address] [place], [place] [phone] Jamil Ralph MD [address] [place] [facility] [address] [place], [place] [phone] 05/30/2024 9:00 AM EST Office Visit [facility] Department of Internal Medicine [facility] [address] [phone] Consuelo Hobbs PA-C [address] [phone] documented as of this encounter Visit Diagnoses Not on filedocumented in this encounter Care Teams Men'S Golf Coach Relationship Specialty Start Date End Date Consuelo Hobbs PA-C [address] [place] [phone] PCP - General 05/01/19 Madi Sharp MD [address] [place] [address] Gastroenterology 10/02/19 documented as of this encounter
--- OUTSIDE RECORDS SUMMARY | 2023-10-29 17:49 | XMS_ITS | Encounter Summary ---
Author Organization [facility] Address [address] [place] [address] Care Team Providers Care Gas Station Clerk Name Role Phone Consuelo Hobbs PA-C Primary Care Provider Madi Sharp MD Unavailable [phone] Encounter Details Date Type Department Care Team (Late st Contact Info) Description 01/04/2021 Orders Only [facility] [place] Medical Oncology at [address] [phone] Ricci Carter MD [address] [place] [address] Social History Tobacco Use Types Packs/Day Years [...] 11/13/2023 7:45 AM EDT Office Visit [facility] Oncology at [address] [phone] Ricci Carter MD [address] [place] [address] 11/13/2023 8:30 AM EDT Infusion [facility] [place] [facility] Outpatient Infusion Center [address] [phone] Ricci Carter MD [address] [place], [place] [phone] Keiko Hallman MD 80 [facility] [place] [address] 11/20/2023 11:00 AM EDT Appointment [facility] Radiology Shay Mammography [address] [place] [address] [phone] Ricci Carter MD [address] [place], [place] [phone] 11/20/2023 11:30 AM EDT Appointment [facility] Radiology Shay Mammography [address] [place] [address] [phone] Ricci Carter MD [address] [place], [place] [phone] 03/05/2024 11:00 AM EST Consult [facility] Cardiology [address] [place] [address] [phone] Ricci Carter MD [address] [place] [address] Jamil Ralph MD [address] [facility] [address] [place] [address] 05/30/2024 9:00 AM EST Office Visit [facility] Department of Internal Medicine [facility] [address] [facility] [address] [place] [address] Consuelo Hobbs PA-C [address] [address] documented as of this encounter Visit Diagnoses Not on filedocumented in this encounter Care Teams Gas Station Clerk Relationship Specialty Start Date End Date Consuelo Hobbs PA-C [address] [place] [address] PCP - General 05/01/19 Madi Sharp MD [address] [place] [address] Gastroenterology 10/02/19 documented as of this encounter
--- OUTSIDE RECORDS SUMMARY | 2023-10-29 17:49 | XMS_ITS | Encounter Summary ---
Author Organization [facility] Address [address] [place] [address] Care Team Providers Care Tire Retreader Name Role Phone Consuelo Hobbs PA-C Primary Care Provider Madi Sharp MD Unavailable [phone] Reason for Referral * Cardiovascular Test (Routine) - Closed Specialty Diagnoses / Procedures Referred By Contbalbir t Referred To Contact Diagnoses Carcinoid tumor of ileum, unspecified whether malignant (HCC) Diarrhea, unspecified type Carcinoid tumor of ileum (HCC) Procedures Echocardiogram Comprehensive Ricci Carter MD [address] [place] [address] Referral ID Status Reason Start Date Expiration Date Visits Re quested Visits Authorized [id number] Closed 01/05/2021 01/06/2022 1 1 Encounter Details Date Type Department Care Team (Late st Contact Info) Description 01/05/2021 8:05 AM EDT Office Visit [facility] [place] Medical Oncology at [address] [phone] Ricci Carter MD [address] [place] [address] Carcinoid tumor of ileum, unspecified whether malignant (Primary Dx); Carcinoid tumor of ileum; Encounter for monitoring octreotide therapy; Diarrhea, unspecified type; Oncology follow-up encounter Social History Tobacco Use [...] Sign Reading Time Taken Comments Blood Pressure 137/89 01/05/2021 8:14 AM EDT Pulse 82 01/05/2021 8:14 AM EDT Temperature 36.4 ??C (97.5 ??F) 01/05/2021 8:14 AM ED T Respiratory Rate 16 01/05/2021 8:14 AM EDT Oxygen Saturation 100% 01/05/2021 8:14 AM EDT Inhaled Oxygen Concentration - - Weight 59.8 kg (131 lb 14.4 oz) 01/05/2021 8:14 AM EDT Height - - Body Mass Index 23.37 06/05/2020 8:47 AM EST documented in this encounter Progress Notes * Ricci Carter MD - 01/05/2021 8:05 AM EDT Images from the original note were not included. Medical Oncology/Hematology Progress Note Healthcare Team: Consuelo Hobbs PA-C Subjective: Date of visit is: 01/05/2021 Rody Sotelo is a 50 y.o. female who presents here today for a follow- up visit regarding carcinoid. ONCOLOGY HISTORY: - December 16, 2019, colonoscopy was normal. Interim History: She has been busy working. She offers no new complaints. Diarrhea has been decent after she switched taking Kytril BID. Episodes/day: 5-10. Denies cramping. Stools are soft, not usually liquid. Worse/provked by diet. She reports no side effects from Sandostatin LAR. She has not required any short acting octreotide. Taking: Loperamide: 12 tabs per day. Colestipol: 1 tabs twice daily. Has not required morphine. She denies flushing or palpitations. She denies any pain. Pain: 0 REVIEW OF SYSTEMS: Review of Systems Constitutional: Negative for appetite change and unexpected weight change. HENT: Negative for mouth sores and nosebleeds. Respiratory: Negative for chest tightness, cough, shortness of breath and wheezing. Cardiovascular: Negative for chest pain and leg swelling. Gastrointestinal: Negative for abdominal distention, abdominal pain, blood in stool and vomiting. Musculoskeletal: Negative for back pain. Skin: Negative for itching and rash. Neurological: Positive for headaches (still occasional migraines). Negative for dizziness and light-headedness. Hematological: Does [...] Disp: 120 tablet, Rfl: 5 ??? CREON [address] Particles capsule, 36,000 Units [...] FOR NAUSEA, Disp: , Rfl: ??? rizatriptan (MAXALT-LATHE OPERATOR CONTACT LENS) 10 MG disintegrating tablet, DISSOLVE ONE TABLET [...] Objective: Wt Readings from Last 2 Encounters: 01/05/21 59.8 kg (131 lb 14.4 oz) 12/15/20 60.3 kg (133 lb) Physical Exam Vitals: 01/05/21 0814 BP: 137/89 BP Location: Right arm Pulse: 82 Resp: 16 Temp: 97.5 ??F (36.4 ??C) TempSrc: Skin SpO2: 100% Weight: 59.8 kg (131 lb 14.4 oz) Performance status: ECOG (0) Fully active, [...] cranial nerve deficit. Sensory: No sensory deficit. Deep Tendon Reflexes: Reflexes are normal [...] 08/07/2020 CREAT 0.62 08/07/2020 Assessment/Plan: 1. Carcinoid, [id number] A. Diagnosed July 11, 2013 1. S/p [...] a follow- up visit regarding carcinoid. Rody remains clinically stable from her carcinoid. Her diarrhea seems better managed with colestipol and granisetron. She has not required any short acting octreotide. She has no flushing, palpitations or weight loss. She is maintaining her weight. She is tolerating Sandostain LAR well. Continue every 3 weekly dosing. Treatment today. She still has not had MRI. She will make an appt. Labs ordered. I have recommended no changes to medical therapy: continue Sandostatin LAR, Kytril, Creon, Colestipol (suggested 2 grams BID), short acting octreotide and loperamide prn. Third Helper # will be provided. I referred her for echocardiogram. 2. Use of medical marijuana She will continue medical marijuana. Flu shot recommended. Orders Placed This Encounter Procedures ??? Complete Blood Count, with Differential Standing Status: Future Number of Occurrences: 1 Standing Expiration Date: 01/05/2022 Order Specific Question: Release to Patient Answer: Immediate Release ??? Basic Metabolic Panel Standing Status: Future Number of Occurrences: 1 Standing Expiration Date: 01/05/2022 Order Specific Question: Release to Patient Answer: Immediate Release ??? Hepatic Function Panel Standing Status: Future Number of Occurrences: 1 Standing Expiration Date: 01/05/2022 Order Specific Question: Release to Patient Answer: Immediate Release ??? Vitamin D, 25-Hydroxy - [facility] Standing Status: Future Number of Occurrences: 1 Standing Expiration Date: 01/05/2022 Order Specific Question: Release to Patient Answer: Immediate Release ??? Echocardiogram Comprehensive Also has carcinoid, assess for valvular disease Standing Status: Future Standing Expiration Date: 01/05/2022 Order Specific Question: Clinical Indication for Exam Answer: Palpitations Order Specific Question: Release to Patient Answer: Immediate Release The patient will return in 8 weeks. There are no Patient Instructions on file for this visit. documented in this encounter Miscellaneous Notes * Addendum Note - Cordelia Dwyer MA - 01/05/2021 9:26 AM EDTAddended by: CORDELIA DWYER on: 01/05/2021 09:26 AM Modules accepted: Orders documented in this encounter Plan of Treatment Upcoming Encounters Date Type Department Care Team (Late st Contact Info) Description 11/13/2023 7:45 AM EDT Office Visit [facility] Medical Oncology at [address] [phone] Ricci Carter MD [address] [place], [place] [phone] 11/13/2023 8:30 AM EDT Infusion [facility] Cancer [place] at [facility] Infusion Center [address] [phone] Ricci Carter MD [address] [place], [place] [phone] Keiko Hallman MD 80 [facility] [place] [address] 11/20/2023 11:00 AM EDT Appointment [facility] Radiology [facility] [address] [place] [phone] Ricci Carter MD [address] [place], [place] [phone] 11/20/2023 11:30 AM EDT Appointment [facility] Radiology [facility] [address] [place] [phone] Ricci Carter MD [address] [place], [place] [phone] 03/05/2024 11:00 AM EST Consult [facility] Cardiology [address] [place] [phone] Ricci Carter MD [address] [place], [place] [phone] Jamil Ralph MD [address] [place] [address] 05/30/2024 9:00 AM EST Office Visit [facility] Department of Internal Medicine [facility] [address] [facility] [address] [place], [place] [phone] Consuelo Hobbs PA-C [address] [facility] [address] [place] [address] Scheduled Orders Name Type Priority Associated Diagnoses Orde r Schedule Complete Blood Count, with Differential Lab Routine Carcinoid tumor of ileum, unspecified whether malignant Diarrhea, unspecified type Carcinoid tumor of ileum Expected: 01/05/2021 (Approximate), Expires: 01/05/2022 Basic Metabolic Panel Lab Routine Carcinoid tumor of ileum, unspecified whether malignant Diarrhea, unspecified type Carcinoid tumor of ileum Expected: 01/05/2021 (Approximate), Expires: 01/05/2022 Hepatic Function Panel Lab Routine Carcinoid tumor of ileum, unspecified whether malignant Diarrhea, unspecified type Carcinoid tumor of ileum Expected: 01/05/2021 (Approximate), Expires: 01/05/2022 Vitamin D, 25-Hydroxy - [facility] Lab Routine Carcinoid tumor of ileum, unspecified whether malignant Diarrhea, unspecified type Carcinoid tumor of ileum Expected: 01/05/2021, Expires: 01/05/2022 documented as of this encounter Procedures Procedure Name Priority Date/Time Associated Diagnosis Comments HEPATIC FUNCTION PANEL Routine 01/05/2021 9:25 AM EDT Carcinoid tumor of ileum, unspecified whether malignant BASIC METABOLIC PANEL Routine 01/05/2021 9:25 AM EDT Carcinoid tumor of ileum, unspecified whether malignant POCT COMPLETE BLOOD COUNT WITH DIFFERENTIAL (ONCOLOGY) Routine 01/05/2021 9:22 AM EDT documented in this encounter Results * ECHOCARDIOGRAM COMPREHENSIVE (06/01/2021 11:26 AM EST) Anatomical Region Laterality Modality Ultrasound 06/01/2021 12:3 0 PM EST Narrative 06/01/2021 12:30 PM EST To view the final report click the scan hyperlink below. Scanned documents are not accessible through [employer]. Please contact Medical Records for a copy of your scanned result. Procedure Note Patrick Steel MD - 06/01/2021 To view the final report click the scan hyperlink below. Scanned documents are not accessible through [employer]. [facility] for a copy of your scanned result. Ricci Carter MD CV ECHO ORDERABLES * Hepatic Function Panel (01/05/2021 9:25 AM EDT) Protein, Total 7.4 6.1 - 8.1 g/dL [facility] Albumin 4.6 3.6 - 5.1 g/dL [facility] Globulin 2.8 1.9 - 3.7 g/dL (calc) [facility] Albumin/Globulin Ratio 1.6 1.0 - 2.5 (calc) [facility] Bilirubin, Total 0.4 0.2 - 1.2 mg/dL [facility] Bilirubin, Direct 0.1 < OR = 0.2 mg/dL [facility] Bilirubin, Indirect 0.3 0.2 - 1.2 mg/dL (calc) [facility] Alkaline Phosphatase 66 31 - 125 U/L [facility] Aspartate Aminotrans (AST) 18 10 - 35 U/L [facility] Alanine Aminotrans (ALT) 11 6 - 29 U/L [facility] Blood specimen (specimen) Blood specimen / Unknown 01/05/2021 9:25 AM EDT 01/05/2021 2:46 PM EDT Ricci Carter MD LAB BLOOD ORDERABLES [facility] [facility] [address] [place] [address] * Basic Metabolic Panel (01/05/2021 9:25 AM EDT) Pathologist [facility] Glucose 88 65 - 99 mg/dL [facility] Comment: ? Fasting reference interval Blood Urea Nitrogen (BUN) 10 7 - 25 mg/dL [facility] Creatinine 0.66 0.50 - 1.10 mg/dL [facility] eGFR Non- 104 > OR = 60 mL/min/1. 73m2 [facility] eGFR 121 > OR = 60 mL/min/1. 73m2 [facility] BUN/Creatinine Ratio NOT APPLICABLE 6 - 22 (calc) [facility] Sodium 139 135 - 146 mmol/L [facility] Potassium 4.2 3.5 - 5.3 mmol/L [facility] Chloride 104 98 - 110 mmol/L [facility] CO2 26 20 - 32 mmol/L [facility] Calcium 9.6 8.6 - 10.2 mg/dL [facility] Blood specimen (specimen) Blood specimen / Unknown 01/05/2021 9:25 AM EDT 01/05/2021 2:46 PM EDT Ricci Carter MD LAB BLOOD ORDERABLES [facility] [address] [place] [address] * CBC with Differential (01/05/2021 9:22 AM EDT) White Blood Cell Count 8.7 4.0 - 11.0 Thou/uL 01/05/2021 9:30 AM EDT [facility] Red Blood Cell Count 4.52 4.00 - 5.40 Mil/uL 01/05/2021 9:30 AM EDT [facility] Hemoglobin 13.4 11.7 - 15.7 g/dL 01/05/2021 9:30 AM EDT [facility] Hematocrit 41.7 35.0 - 47.0 % 01/05/2021 9:30 AM EDT [facility] MCV 92 80 - 100 fL 01/05/2021 9:30 AM EDT [facility] MCH 29.6 26.0 - 34.0 pg 01/05/2021 9:30 AM EDT [facility] MCHC 32.1 30.0 - 36.0 g/dL 01/05/2021 9:30 AM EDT [facility] RDW 14.0 11.5 - 14.5 % 01/05/2021 9:30 AM EDT [facility] Platelet Count 221 150 - 450 Thou/uL 01/05/2021 9:30 AM EDT [facility] MPV 10.7 9.4 - 12.5 fL 01/05/2021 9:30 AM EDT [facility] Neutrophils Auto 74.1 % 01/06/20 21 9:30 AM EDT [facility] Abs Neutrophils Auto 6.50 2.00 - 7.50 Thou/uL 01/05/2021 9:30 AM EDT [facility] Lymphocytes Auto 20.0 % 01/06/20 21 9:30 AM EDT [facility] Abs Lymphocytes Auto 1.70 1.50 - 4.50 Thou/uL 01/05/2021 9:30 AM EDT [facility] Mixed Mononuclear Auto 5.9 % 01/05/2021 9:30 AM EDT [facility] Abs Mixed Mononuclear Auto <1.00 0.20 - 1.90 Thou/uL 01/05/2021 9:30 AM EDT [facility] Blood specimen / Unknown 01/05/2021 9:22 AM EDT 01/05/2021 9:30 AM EDT Ricci Carter MD POINT OF CARE TEST O RDERABLES HOSPITAL LAB [facility] [address] [facility] [place] [address] documented in this encounter Visit Diagnoses Diagnosis Carcinoid tumor of ileum, unspecified whether malignant (HCC)- Primary Encounter for monitoring octreotide therapy Diarrhea, unspecified type Oncology follow-up encounter Carcinoid tumor of ileum, unspecified whether malignant (HCC) Diarrhea, unspecified type documented in this encounter Care Teams Tire Retreader Relationship Specialty Start Date End Date Consuelo Hobbs PA-C [address] [place] [address] [address] [place] [address] PCP - General 05/01/19 Madi Sharp MD [address] [place] [address] [address] [place] [address] Gastroenterology 10/02/19 documented as of this encounter
--- OUTSIDE RECORDS SUMMARY | 2023-10-29 17:49 | XMS_ITS | Encounter Summary ---
Author Organization [facility] Address [address] [place] [address] Care Team Providers Care Expanded Duty Dental Assistant Name Role Phone Consuelo Hobbs PA-C Primary Care Provider Madi Sharp MD Unavailable [phone] Encounter Details Date Type Department Care Team ([facility] st Contact Info) Description 01/19/2021 Orders Only [facility] [place] Medical Oncology at [address] [phone] Niki Giron, MAYA [address] [place] [address] Social History Tobacco Use Types Packs/Day Years [...] Description 11/13/2023 7:45 AM EDT Office Visit [facility] Medical Oncology at [address] [phone] Ricci Carter MD [address] [place], [place] [phone] 11/13/2023 8:30 AM EDT Infusion [facility] [place] at [facility]fusion Center [address] [phone] Ricci Carter MD [address] [place], [place] [phone] Keiko Hallman MD 80 [facility] [place] [address] 11/20/2023 11:00 AM EDT Appointment [facility]iology [facility] [address] [place] [address] [phone] Ricci Carter MD [address] [place], [place] [phone] 11/20/2023 11:30 AM EDT Appointment [facility] [address] [place] [address] [phone] Ricci Carter MD [address] [place], [place] [phone] 03/05/2024 11:00 AM EST Consult [facility] Cardiology [address] [place] [phone] Ricci Carter MD [address] [place] [address] Jamil Ralph MD [address] [facility] [address] [place] [address] 05/30/2024 9:00 AM EST Office Visit [facility] Department of Internal Medicine [facility] [address] [facility] [address] [place] [address] Consuelo Hobbs PA-C 1210 [facility] 109 [place] [address] documented as of this encounter Visit Diagnoses Not on filedocumented in this encounter Care Teams Expanded Duty Dental Assistant Relationship Specialty Start Date End Date Consuelo Hobbs PA-C [address] [place] [address] PCP - General 05/01/19 Madi Sharp MD [address] [place] [address] Gastroenterology 10/02/19 documented as of this encounter
--- OUTSIDE RECORDS SUMMARY | 2023-10-29 17:49 | XMS_ITS | Encounter Summary ---
Author Organization [facility] Address [address] [place] [address] Care Team Providers Care Wharf Operator Name Role Phone Consuelo Hobbs PA-C Primary Care Provider Madi Sharp MD Unavailable [phone] Encounter Details Date Type Department Care Team (Late Contact Info) Description 11/27/2020 10:20 AM EDT Immunization [facility] [address] [place] [phone] Encounter for vaccination (Primary Dx) Social History Tobacco Use Types [...] Visit [facility] Medical Oncology at [address] [phone] Ricci Carter MD [address] [place] [address] 11/13/2023 8:30 AM EDT Infusion [facility] Cancer [place] at [facility] Outpatient Infusion Center [address] [phone] Ricci Carter MD [address] [place], [place] [phone] Keiko Hallman MD 80 [facility] [place] [address] 11/20/2023 11:00 AM EDT Appointment [facility] Radiology [facility] [address] [place] [address] [phone] Ricci Carter MD [address] [place], [place] [phone] 11/20/2023 11:30 AM EDT Appointment [facility] Radiology [facility] [address] [place] [address] [phone] Ricci Carter MD [address] [place], [place] [phone] 03/05/2024 11:00 AM EST Consult [facility] Cardiology [address] [place] [address] [phone] Ricci Carter MD [address] [place], [place] [phone] Jamil Ralph MD [address] [place] [address] 05/30/2024 9:00 AM EST Office Visit [facility] Department of Internal Medicine [facility] [address] [facility] 109 [place] [address] Consuelo Hobbs PA-C 1210 [facility] [address] [place], [place] [phone] documented as of this encounter Visit Diagnoses Diagnosis Encounter for vaccination- Primary documented in this encounter Care Teams Wharf Operator Relationship Specialty Start Date End Date Consuelo Hobbs PA-C [address] [place] [address] PCP - General 05/01/19 Madi Sharp MD 85 [facility] [address] [place] [address] Gastroenterology 10/02/19 documented as of this encounter
--- OUTSIDE RECORDS SUMMARY | 2023-10-29 17:49 | XMS_ITS | Encounter Summary ---
Author Organization [facility] Address [address] [place] [address] Care Team Providers Care Link Cutter Name Role Phone Consuelo Hobbs PA-C Primary Care Provider Madi Sharp MD Unavailable [phone] Reason for Referral * Cardiovascular Test (Routine) - Closed Specialty Diagnoses / Procedures Referred By Contbalbir t Referred To Contact Diagnoses Heart palpitations Procedures Echocardiogram Comprehensive Jordan Patricio PA [address] [facility] [place] [address] Referral ID Status Reason Start Date Expiration Date Visits Re quested Visits Authorized [id number] Closed 09/29/2020 09/30/2021 1 1 Encounter Details Date Type Department Care Team (Late st Contact Info) Description 09/28/2020 Telephone [facility] [place] [address] [place] [phone] Shan Alexandre MD [address] [facility] [address] [place] [address] Social History Tobacco Use Types Packs/Day Years [...] have Coronavirus / COVID-19? No / Unsure 09/18/2020 8:16 AM EDT documented as of this encounter Miscellaneous Notes * Telephone Encounter - Haily Arzate MA - 09/29/2020 8:49 AM EDT This can now be scheduled * Telephone Encounter - CATHI Donis - 09/29/2020 8:34 AM EDT New echo order is in. * Telephone Encounter - Shelia Lindquist MA - 09/29/2020 8:29 AM EDT Old order has , can a new order for echo be placed? Thank you. * Telephone Encounter - Monik Anton - 09/28/2020 5:11 PM EDT ----- Message from Kailey Hernandez RN sent at 09/28/2020 3:59 PM EDT ----- Regarding: FW: Non-Urgent Medical Question Contact: Please schedule an Echo per note ----- Message ----- From: Rody Sotelo Sent: 09/28/2020 7:58 AM EDT To: [facility] Subject: Non-Urgent Medical Question Good morning. I just realized I never set up an appt for an echo this spring. Can I please set one up? Any morning is fine for me and no roth. Thank you and my apologies! Rody rebeka documented in this encounter Plan of Treatment Upcoming Encounters Date Type Department Care Team (Late st Contact Info) Description 11/13/2023 7:45 AM EDT Office Visit [facility] Medical Oncology at [address] [phone] Ricci Carter MD [address] [place], [place] [phone] 11/13/2023 8:30 AM EDT Infusion [facility] Cancer [place] at [facility]fusion Center [address] [phone] Ricci Carter MD [address] [place], [place] [phone] Keiko Hallman MD 80 [facility] [place] [address] 11/20/2023 11:00 AM EDT Appointment [facility] Radiology [place] [facility] [address] [place] [phone] Ricci Carter MD [address] [place] [place], [place] [phone] 11/20/2023 11:30 AM EDT Appointment [facility] Radiology [facility] [address] [place] [phone] Ricci Carter MD [address] [place], [place] [phone] 03/05/2024 11:00 AM EST Consult [facility] Cardiology [place] [address] [facility] [address] [place] [phone] Ricci Carter MD [address] [place] [address] Jamil Ralph MD [address] [place] [address] 05/30/2024 9:00 AM EST Office Visit [facility] Department of Internal Medicine [facility] 1210 [facility] 109 [place] [address] Consuelo Hobbs PA-C [address] [address] Scheduled Orders Name Type Priority Associated Diagnoses Orde r Schedule Echocardiogram Comprehensive Echocardiography Routine Heart palpitations Ordered: 09/29/2020 documented as of this encounter Visit Diagnoses Diagnosis Heart palpitations- Primary Palpitations documented in this encounter Care Teams Link Cutter Relationship Specialty Start Date End Date Consuelo Hobbs PA-C [address] [place] [address] 109 [place] [address] PCP - General 05/01/19 Madi Sharp MD [address] [place] [address] [place] [address] Gastroenterology 10/02/19 documented as of this encounter
--- OUTSIDE RECORDS SUMMARY | 2023-10-29 17:49 | XMS_ITS | Encounter Summary ---
Author Organization [facility] Address [address] [place] [address] Care Team Providers Care Major Account Manager Name Role Phone Consuelo Hobbs PA-C Primary Care Provider Madi Sharp MD Unavailable [phone] Encounter Details Date Type Department Care Team (Latest Contact Info) Description 12/15/2020 Travel Social History Tobacco Use Types Packs/Day [...] Office Visit [facility] Cancer [place] Medical Oncology at [address] [phone] Ricci Carter MD 85 [place] [address] 11/13/2023 8:30 AM EDT Infusion [facility] [place] at [facility] Out[facility] Infusion Center [address] [phone] Ricci Carter MD [address] [place], [place] [phone] Keiko Hallman MD 80 [facility] [place] [address] 11/20/2023 11:00 AM EDT Appointment [facility] [address] [place] [address] [phone] Ricci Carter MD [address] [place], [place] [id number] 11/20/2023 11:30 AM EDT Appointment [facility] [place] [facility] [address] [place] [phone] Ricci Carter MD [address] [place], [place] [id number] 03/05/2024 11:00 AM EST Consult [facility] Cardiology [address] [place] [phone] Ricci Carter MD [address] [place], [place] [phone] Jamil Ralph MD [address] [facility] [address] [place], [place] [phone] 05/30/2024 9:00 AM EST Office Visit [facility] Department of Internal Medicine [facility] [address] [phone] Consuelo Hobbs PA-C [address] [phone] documented as of this encounter Visit Diagnoses Not on filedocumented in this encounter Care Teams Major Account Manager Relationship Specialty Start Date End Date Consuelo Hobbs PA-C [address] [place] [phone] PCP - General 05/01/19 Madi Sharp MD [address] [place] [address] Gastroenterology 10/02/19 documented as of this encounter
--- OUTSIDE RECORDS SUMMARY | 2023-10-29 17:49 | XMS_ITS | Encounter Summary ---
Author Organization [facility] Address [address] [place] [address] Care Team Providers Care Flange Turner Name Role Phone Consuelo Hobbs PA-C Primary Care Provider Madi Sharp MD Unavailable [phone] Encounter Details Date Type Department Care Team (Latest Contact Info) Description 11/03/2020 Travel Social History Tobacco Use Types Packs/Day [...] Office Visit [facility] [place] [facility] Oncology at [address] [phone] Ricci Carter MD [address] [place] [address] 11/13/2023 8:30 AM EDT Infusion [facility] [place] [facility]fusion Center [address] [phone] Ricci Carter MD [address] [place] [phone] Keiko Hallman MD 80 [facility] [place] [address] 11/20/2023 11:00 AM EDT Appointment [facility] Radiology [facility] M[facility] [address] [place] [address] [phone] Ricci Carter MD [address] [place] [phone] 11/20/2023 11:30 AM EDT Appointment [facility] Radiology [facility] [address] [place] [phone] Ricci Carter MD [address] [place], [place] [id number] 03/05/2024 11:00 AM EST Consult [facility] Cardiology [address] [place] [phone] Ricci Carter MD [address] [place] [phone] Jamil Ralph MD [address] [facility] [address] [place], [place] [id number] 05/30/2024 9:00 AM EST Office Visit [facility] [place] [facility] Department of Internal Medicine [facility] [address] [phone] Consuelo Hobbs PA-C [address] [phone] documented as of this encounter Visit Diagnoses Not on filedocumented in this encounter Care Teams Flange Turner Relationship Specialty Start Date End Date Consuelo Hobbs PA-C [address] [place] [address] [phone] PCP - General 05/01/19 Madi Sharp MD [address] [place] [address] Gastroenterology 10/02/19 documented as of this encounter
--- OUTSIDE RECORDS SUMMARY | 2023-10-29 17:49 | XMS_ITS | Encounter Summary ---
Author Organization [facility] Address [address] [place] [address] Care Team Providers Care Word Processing Machine Operator Name Role Phone Consuelo Hobbs PA-C Primary Care Provider Madi Sharp MD Unavailable [phone] Encounter Details Date Type Department Care Team ([facility] st Contact Info) Description 10/08/2020 Orders Only [facility] Cancer [place] [facility] at [facility] [address] [place] [address] Ricci Carter MD [address] [place], [place] [phone] Social History Tobacco Use Types Packs/Day Years [...] 11/13/2023 7:45 AM EDT Office Visit [facility] Medical Oncology at [address] [phone] Ricci Carter MD [address] [place], [place] [phone] 11/13/2023 8:30 AM EDT Infusion [facility] Cancer [place] at [facility] Outpatient Infusion Center [address] [phone] Ricci Carter MD [address] [place], [place] [phone] Keiko Hallman MD 80 [facility] [place] [address] 11/20/2023 11:00 AM EDT Appointment [facility] Radiology [facility] Mammography [address] [place] [address] [phone] Ricci Carter MD [address] [place], [place] [id number] 11/20/2023 11:30 AM EDT Appointment [facility] Radiology [facility] [address] [place] [address] [phone] Ricci Carter MD [address] [place], [place] [address] 03/05/2024 11:00 AM EST Consult [facility] Cardiology [address] [place] [phone] Ricci Carter MD [address] [place] [address] Jamil Ralph MD [address] [place] [facility] [address] [place] [address] 05/30/2024 9:00 AM EST Office Visit [facility] Department of Internal Medicine [facility] 1210 [facility] [address] [place] [address] Consuelo Hobbs PA-C 1210 [facility] [address] [place] [address] documented as of this encounter Visit Diagnoses Not on filedocumented in this encounter Care Teams Word Processing Machine Operator Relationship Specialty Start Date End Date Consuelo Hobbs PA-C [address] [place] [address] PCP - General 05/01/19 Madi Sharp MD [address] [place] [address] Gastroenterology 10/02/19 documented as of this encounter
--- OUTSIDE RECORDS SUMMARY | 2023-10-29 17:49 | XMS_ITS | Encounter Summary ---
Author Organization [facility] Address [address] [place] [address] Care Team Providers Care Business Assistant Name Role Phone Consuelo Hobbs PA-C Primary Care Provider Madi Sharp MD Unavailable [phone] Encounter Details Date Type Department Care Team (Latest Contact Info) Description 08/28/2020 Travel Social History Tobacco Use Types Packs/Day [...] EDT Office Visit [facility] Cancer [place] Medical Oncology at [address] [phone] Ricci Carter MD [address] [place] [address] 11/13/2023 8:30 AM EDT Infusion [facility] Cancer [place] at [facility] Outpatient Infusion Center [address] [phone] Ricci Carter MD [address] [place] [phone] Keiko Hallman MD 80 [facility] [place] [address] 11/20/2023 11:00 AM EDT Appointment [facility] Radiology [facility] M[facility] [address] [place] [address] [phone] Ricci Carter MD [address] [place] [address] 11/20/2023 11:30 AM EDT Appointment [facility] Radiology [facility] 35 [place] [phone] Ricci Carter MD [address] [place], [place] [address]106 03/05/2024 11:00 AM EST Consult [facility] Cardiology [address] [place] [phone] Ricci Carter MD [address] [place] [phone] Jamil Ralph MD [address] [place] [facility] [address] [place], [place] [phone] 05/30/2024 9:00 AM EST Office Visit [facility] Department of Internal Medicine [facility] [address] [phone] Consuelo Hobbs PA-C [address] [phone] documented as of this encounter Visit Diagnoses Not on filedocumented in this encounter Care Teams Business Assistant Relationship Specialty Start Date End Date Consuelo Hobbs PA-C [address] [place] [address] [phone] PCP - General 05/01/19 Madi Sharp MD [address] [place] [address] Gastroenterology 10/02/19 documented as of this encounter
--- OUTSIDE RECORDS SUMMARY | 2023-10-29 17:49 | XMS_ITS | Encounter Summary ---
Author Organization [facility] Address [address] [place] [address] Care Team Providers Care Pasting Inspector Name Role Phone Consuelo Hobbs PA-C Primary Care Provider Madi Sharp MD Unavailable [phone] Reason for Visit * Reason Comments Injections sandostatin * Episode Based Medications (Routine) - Authorized Specialty Diagnoses / Procedures Referred By Vineet campbell Referred To Contact Diagnoses Carcinoid tumor of ileum, unspecified whether malignant (HCC) Keiko Hallman MD 80 [facility] [place] [address] [phone] Referral ID Status Reason Start Date Expiration Date V isits Requested Visits Authorized [id number] Authorized 04/29/2022 11/27/2023 5 2 Encounter Details Date Type Department Care Team (Late st Contact Info) Description 03/09/2021 8:45 AM EST Infusion [facility] [facility] Out[facility] Infusion Center [address] [phone] Ricci Carter MD [address] [place] [address] Keiko Hallman MD 80 [facility] [place] [address] Iman Prater, RN [address] [place] [address] Carcinoid tumor of ileum, unspecified whether malignant (Primary Dx); Flu vaccine need Social History Tobacco Use Types Packs/Day Years [...] Description 11/13/2023 7:45 AM EDT Office Visit [facility] Medical Oncology at [address] [phone] Ricci Carter MD [address] [place] [address] 11/13/2023 8:30 AM EDT Infusion [facility] Outpatient Infusion Center [address] [phone] Ricci Carter MD [address] [place] [address] Keiko Hallman MD 80 [facility] [place] [address] 11/20/2023 11:00 AM EDT Appointment [facility] Radiology Sh[facility] Mammography 35 [place] [phone] Ricci Carter MD [address] [place] [address] 11/20/2023 11:30 AM EDT Appointment [facility] Radiology [place] [facility] [address] [place] [phone] Ricci Carter MD [address] [place] [place], [place] [id number] 03/05/2024 11:00 AM EST Consult [facility] Cardiology [address] [place] [phone] Ricci Carter MD [address] [place] [address] Jamil Ralph MD [address] [place] [facility] [address] [place], [place] [phone] 05/30/2024 9:00 AM EST Office Visit [facility] Department of Internal Medicine [facility] 1210 [facility] [address] [place], [place] [phone] Consuelo Hobbs PA-C 1210 [facility] [address] [place], [place] [phone] documented as of this encounter Visit Diagnoses Diagnosis Carcinoid tumor of ileum, unspecified whether malignant (HCC)- Primary Flu vaccine need documented in this encounter Administered Medications Inactive Administered Medications - up to 1 most recent administrations Medication Order MAR Action Action Date Dose Rate Site octreotide (SandoSTATIN LAR) IM injection 40 mg 40 mg, Intramuscular, Once, On Mon03/09/21 at 0930, For 1 dose, Administer IM intragluteal (avoid deltoid administration). For intraMUSCULAR use ONLY. Must be administered immediately after mixing. Given 03/09/2021 8:42 AM EST 40 mg Left Gluteal Upper Outer Quadrant documented in this encounter Care Teams Pasting Inspector Relationship Specialty Start Date End Date Consuelo Hobbs PA-C [address] [address] PCP - General 05/01/19 Madi Sharp MD [address] [place] [address] [address] [place] [address] Gastroenterology 10/02/19 documented as of this encounter
--- OUTSIDE RECORDS SUMMARY | 2023-10-29 17:49 | XMS_ITS | Encounter Summary ---
Author Organization [facility] Address [address] [place] [address] Care Team Providers Care Staffing Administrator Name Role Phone Consuelo Hobbs PA-C Primary Care Provider Madi Sharp MD Unavailable [phone] Encounter Details Date Type Department Care Team (Latest Contact Info) Description 08/07/2020 Travel Social History Tobacco Use Types Packs/Day [...] have Coronavirus / COVID-19? No / Unsure 08/07/2020 8:06 AM EDT documented as of this encounter Plan of Treatment Upcoming Encounters Date Type Department Care Team ( st Contact Info) Description 11/13/2023 7:45 AM EDT Office Visit [facility] Cancer [place] [facility] Oncology at [address] [phone] Ricci Carter MD [address] [place] [address] 11/13/2023 8:30 AM EDT Infusion [facility] [place] [facility] Outpatient Infusion Center [address] [phone] Ricci Carter MD [address] [place] [phone] Keiko Hallman MD 80 [facility] [place] [address] 11/20/2023 11:00 AM EDT Appointment [facility] Radiology [facility] Mammography [address] [place] [address] [phone] Ricci Carter MD [address] [place] [phone] 11/20/2023 11:30 AM EDT Appointment [facility] Radiology [facility] M[facility] 35 [place] [phone] Ricci Carter MD [address] [place], [place] [id number] 03/05/2024 11:00 AM EST Consult [facility] Cardiology [address] [place] [phone] Ricci Carter MD [address] [place] [address] Jamil Ralph MD [address] [place] [facility] [address] [place], [place] [phone] 05/30/2024 9:00 AM EST Office Visit [facility] Department of Internal Medicine [facility] [address] [phone] Consuelo Hobbs PA-C [address] [phone] documented as of this encounter Visit Diagnoses Not on filedocumented in this encounter Care Teams Staffing Administrator Relationship Specialty Start Date End Date Consuelo Hobbs PA-C [address] [place] [address] [phone] PCP - General 05/01/19 Madi Sharp MD [address] [place] [address] Gastroenterology 10/02/19 documented as of this encounter
--- OUTSIDE RECORDS SUMMARY | 2023-10-29 17:49 | XMS_ITS | Encounter Summary ---
Author Organization [facility] Address [address] [place] [address] Care Team Providers Care Manufacturing Automation Engineer Name Role Phone Consuelo Hobbs PA-C Primary Care Provider Madi Sharp MD Unavailable [phone] Encounter Details Date Type Department Care Team (Latest Contact Info) Description 09/18/2020 Travel Social History Tobacco Use Types Packs/Day [...] 11/13/2023 7:45 AM EDT Office Visit [facility] [place] Medical Oncology at [address] [phone] Ricci Carter MD [address] [place] [address] 11/13/2023 8:30 AM EDT Infusion [facility] [place] at [facility] Outpatient Infusion Center [address] [phone] Ricci Carter MD [address] [place], [place] [phone] Keiko Hallman MD 80 [facility] [place] [address] 11/20/2023 11:00 AM EDT Appointment [facility] Radiology [facility] Mamm[facility] [address] [place] [address] [phone] Ricci Carter MD [address] [place] [phone] 11/20/2023 11:30 AM EDT Appointment [facility] Radiology [facility] Mamm[facility] 35 [place] [phone] Ricci Carter MD [address] [place], [place] [address] 03/05/2024 11:00 AM EST Consult [facility] Cardiology [address] [place] [phone] Ricci Carter MD [address] [place] [phone] Jamil Ralph MD [address] [place] [facility] [address] [place], [place] [phone] 05/30/2024 9:00 AM EST Office Visit [facility] Department of Internal Medicine [facility] [address] [phone] Consuelo Hobbs PA-C [address] [phone] documented as of this encounter Visit Diagnoses Not on filedocumented in this encounter Care Teams Manufacturing Automation Engineer Relationship Specialty Start Date End Date Consuelo Hobbs PA-C [address] [place] [address] [phone] PCP - General 05/01/19 Madi Sharp MD [address] [place] [address] Gastroenterology 10/02/19 documented as of this encounter
--- OUTSIDE RECORDS SUMMARY | 2023-10-29 17:49 | XMS_ITS | Encounter Summary ---
Author Organization [facility] Address [address] [place] [address] Care Team Providers Care Drapery Sewer Hand Name Role Phone Consuelo Hobbs PA-C Primary Care Provider Madi Sharp MD Unavailable [phone] Encounter Details Date Type Department Care Team (Late st Contact Info) Description 11/03/2020 3:05 PM EDT Office Visit [facility] [place] Medical Oncology at [address] [phone] Ricci Carter MD [address] [place] [address] Carcinoid tumor of ileum, unspecified whether malignant (Primary Dx); Diarrhea, unspecified type; Encounter for monitoring octreotide therapy; Oncology follow-up encounter; Medical marijuana use Social History Tobacco Use Types Packs/Day Years [...] as of this encounter Progress Notes * Ricci Carter MD - 11/03/2020 2:51 PM EDT Images from the original note were not included. Medical Oncology/Hematology Progress Note Healthcare Team: Consuelo Hobbs PA-C Subjective: Date of visit is: November 03, 2020 Rody Sotelo is a 50 y.o. female who presents here today for a follow- up visit regarding carcinoid. ONCOLOGY HISTORY: - December 16, 2019, colonoscopy was normal. Interim History: She reports feeling good. She reports having a lot more energy. She hiked 8 miles the other day. She is sleeping better and eating eating better. She reports that her diarrhea remains the same. She is tolerating Sandostatin LAR well. She required a short acting dose due to food intolerance, which helped. ?? Diarrhea, remains intermittent. Usually first in AM. Since increasing Kytril, this has helped. Loperamide: 12 tabs per day. Colestipol: 2 tabs once daily. She has not taken any morphine. She is not taking carafate. ?? She reports no flushing or palpitations. Pain: 0 REVIEW OF SYSTEMS: Review of Systems Constitutional: Negative for appetite change, fatigue and unexpected weight change. HENT: Negative for mouth sores and nosebleeds. Respiratory: Negative for cough, shortness of breath and wheezing. Cardiovascular: Negative for leg swelling and palpitations. Gastrointestinal: Negative for abdominal pain, blood in stool and rectal pain. Musculoskeletal: Negative for back pain. Skin: Negative for itching and rash. Neurological: Positive for headaches (occasional migraines). Negative for dizziness and light-headedness. Hematological: Does not bruise/bleed easily. The remainder of the 12- point ROS are within normal limits with the exceptions as noted in the HPI. Allergies Allergies Allergen Reactions ??? Levaquin [Levofloxacin] Myalgia/Myositis/Arthralgia/Arthritis ??? Cefaclor GI Intolerance/Nausea/Vomiting ??? Erythromycin GI Intolerance/Nausea/Vomiting Medications Current Outpatient Medications: ??? calcium carbonate (OS-ANGELICA) 600 MG tablet, Take 600 mg by mouth every morning with breakfast., Disp: , Rfl: ??? Cannabis (MARIJUANA) [facility] Prescription Strength, as needed., Disp: , Rfl: ??? colestipol (COLESTID) 1 g tablet, Take 2 tablets (2 g total) by mouth 2 (two) times a day. Witha large glass of water., Disp: 120 tablet, Rfl: 5 ??? CREON [address] Particles capsule, 36,000 Units [...] days (4 weeks)., Disp: , Rfl: ??? OMEprazole (PriLOSEC) 20 MG capsule, Take 20 mg by mouth every morning before breakfast., Disp:, Rfl: ??? ondansetron (ZOFRAN) 4 MG tablet, TAKE 1 TABLET BY MOUTH THREE TIMES DAILY NEEDED FOR NAUSEA, Disp: , Rfl: ??? rizatriptan (MAXALT-HVAC MAINTENANCE TECHNICIAN) 10 MG disintegrating tablet, DISSOLVE ONE [...] (diarrhea, flushing)., Disp: 90 mL, Rfl: 11 No current facility-administered medications for this visit. Past Medical History Past Medical History: Diagnosis [...] Objective: Wt Readings from Last 2 Encounters: 11/03/20 58.5 kg (129 lb) 10/09/20 59 kg (130 lb) BP: 127/79, P 75, RR 16 Physical Exam There were no vitals filed for this visit. Performance status: ECOG (0) Fully active, able [...] 08/07/2020 CREAT 0.62 08/07/2020 Assessment/Plan: 1. Carcinoid, [id number] A. Diagnosed July 11, 2013 1. S/p [...] follow- up visit regarding carcinoid. Rody is feeling better since she modified her diet. Her energy is better. She is sleeping better. Her diarrhea is not any worse. Her diarrhea remains clinically stable. She does not want to change any therapies at this time. She is tolerating Sandostatin LAR well (without toxicities) There are no concerning signs or symptoms for progression. She has not yet had her MRIs. She will schedule these. I will follow up referral to dietitian placed at time of last visit I have renewed her medical marijuana. Unfortunately, she is not able to get any compounded opium. Continue Creon. She still has to make an appointment for an echocardiogram. 2. Use of medical marijuana See #1. No orders of the defined types were placed in this encounter. The patient will return in 6 weeks. There are no Patient Instructions on file for this visit. documented in this encounter Plan of Treatment Upcoming Encounters Date Type Department Care Team (Late st Contact Info) Description 11/13/2023 7:45 AM EDT Office Visit [facility] [place] Medical [facility]cology at [address] [phone] Ricci Carter MD [address] [place] [address] 11/13/2023 8:30 AM EDT Infusion [facility] [place] at [facility] Outpatient Infusion Center [address] [phone] Ricci Carter MD [address] [place], [place] [phone] Keiko Hallman MD 80 [facility] [place] [address] 11/20/2023 11:00 AM EDT Appointment [facility] Radiology [facility] [address] [place] [phone] Ricci Carter MD [address] [place], [place] [phone] 11/20/2023 11:30 AM EDT Appointment [facility] Radiology [facility] [address] [place] [address] [phone] Ricci Carter MD [address] [place], [place] [phone] 03/05/2024 11:00 AM EST Consult [facility] Cardiology [address] [place] [phone] Ricci Carter MD [address] [place], [place] [phone] Jamil Ralph MD [address] [facility] [address] [place] [address] 05/30/2024 9:00 AM EST Office Visit [facility] Department of Internal Medicine [facility] Ildefonso 1210 [facility] 109 [place] [address] Consuelo Hobbs PA-C [address] [address] documented as of this encounter Visit Diagnoses Diagnosis Carcinoid tumor of ileum, unspecified whether malignant (HCC)- Primary Diarrhea, unspecified type Encounter for monitoring octreotide therapy Oncology follow-up encounter Medical marijuana use Other problems related to lifestyle documented in this encounter Care Teams Drapery Sewer Hand Relationship Specialty Start Date End Date Consuelo Hobbs PA-C [address] [place] [address] PCP - General 05/01/19 Madi Sharp MD [address] [place] [address] Gastroenterology 10/02/19 documented as of this encounter
--- OUTSIDE RECORDS SUMMARY | 2023-10-29 17:49 | XMS_ITS | Encounter Summary ---
Author Organization [facility] Address [address] [place] [address] Care Team Providers Care Global Consumer Sector Vice President Name Role Phone Consuelo Hobbs PA-C Primary Care Provider Madi Sharp MD Unavailable [phone] Reason for Visit * Episode Based Medications (Routine) - Authorized Specialty Diagnoses / Procedures Referred By Contac t Referred To Contact Diagnoses Carcinoid tumor of ileum, unspecified whether malignant (HCC) Keiko Hallman MD 80 [facility] [place] [address] Med Onc Ci [address] [phone] Referral ID Status Reason Start Date Expiration Date V isits Requested Visits Authorized [id number] Authorized 04/29/2022 11/27/2023 5 2 Encounter Details Date Type Department Care Team (Late st Contact Info) Description 09/18/2020 8:30 AM EDT Infusion [facility] [place] at [facility] Outpatient Infusion Center [address] [phone] Ricci Carter MD [address] [place] [address] Keiko Hallman MD 80 [facility] [place] [address] Han Varner, RN 80 [place] [address] Carcinoid tumor of ileum, unspecified whether malignant [...] Sign Reading Time Taken Comments Blood Pressure 131/77 09/18/2020 8:24 AM EDT Pulse 84 09/18/2020 8:24 AM EDT Temperature 36.2 ??C (97.1 ??F) 09/18/2020 8:24 AM ED T Respiratory Rate 16 09/18/2020 8:24 AM EDT Oxygen Saturation 100% 09/18/2020 8:24 AM EDT Inhaled Oxygen Concentration - - Weight 59.9 kg (132 lb) 09/18/2020 8:24 AM EDT Height - - Body Mass Index 23.39 06/05/2020 8:47 AM EST documented in this encounter Plan of Treatment Upcoming Encounters Date Type Department Care Team (Late st Contact Info) Description 11/13/2023 7:45 AM EDT Office Visit [facility] [place] Medical Oncology at [address] [phone] Ricci Carter MD [address] [place] [address] 11/13/2023 8:30 AM EDT Infusion [facility] [place] at [facility] Outpatient Infusion Center [address] [phone] Ricci Carter MD [address] [place] [phone] Keiko Hallman MD 80 [facility] [place] [address] 11/20/2023 11:00 AM EDT Appointment [facility] Radiology [facility] [address] [place] [phone] Ricci Carter MD [address] [place] [phone] 11/20/2023 11:30 AM EDT Appointment [facility] Radiology [facility] 35 [place] [phone] Ricci Carter MD [address] [place], [place] [phone] 03/05/2024 11:00 AM EST Consult [facility] Cardiology [address] [place] [phone] Ricci Carter MD [address] [place], [place] [phone] Jamil Ralph MD [address] [facility] [address] [place], [place] [phone] 05/30/2024 9:00 AM EST Office Visit [facility] Department of Internal Medicine [facility] Ildefonso 1210 [facility] 109 [place], [place] [phone] Consuelo Hobbs PA-C 1210 [facility] 109 [place], [place] [phone] documented as of this encounter Visit Diagnoses Diagnosis Carcinoid tumor of ileum, unspecified whether malignant (HCC)- Primary documented in this encounter Administered Medications Inactive Administered Medications - up to 1 most recent administrations Medication Order MAR Action Action Date Dose Rate Site octreotide (SandoSTATIN LAR) IM injection 40 mg 40 mg, Intramuscular, Once, On Mon09/18/20 at 1700, For 1 dose, Administer IM intragluteal (avoid deltoid administration). For intraMUSCULAR use ONLY. Must be administered immediately after mixing. Given 09/18/2020 8:30 AM EDT 40 mg Other (See Comments) documented in this encounter Care Teams Global Consumer Sector Vice President Relationship Specialty Start Date End Date Consuelo Hobbs PA-C [address] [place] [phone] PCP - General 05/01/19 Madi Sharp MD [address] [place] [address] Gastroenterology 10/02/19 documented as of this encounter
--- OUTSIDE RECORDS SUMMARY | 2023-10-29 17:49 | XMS_ITS | Encounter Summary ---
Author Organization [facility] Address [address] [place] [address] Care Team Providers Care Rn Psych Name Role Phone Consuelo Hobbs PA-C Primary Care Provider Madi Sharp MD Unavailable [phone] Reason for Visit * Episode Based Medications (Routine) - Authorized Specialty Diagnoses / Procedures Referred By Contac t Referred To Contact Diagnoses Carcinoid tumor of ileum, unspecified whether malignant (HCC) Keiko Hallman MD 80 [facility] [place] [address] Med Onc Ci [address] [phone] Referral ID Status Reason Start Date Expiration Date V isits Requested Visits Authorized [id number] Authorized 04/29/2022 11/27/2023 5 2 Encounter Details Date Type Department Care Team (Late st Contact Info) Description 11/03/2020 1:30 PM EDT Infusion [facility] [place] at [facility] Outpatient Infusion Center [address] [phone] Ricci Carter MD [address] [place] [address] Keiko Hallman MD 80 [facility] [place] [address] Han Varner, RN 80 [place] [address] Carcinoid tumor of ileum, unspecified whether malignant [...] Sign Reading Time Taken Comments Blood Pressure 127/79 11/03/2020 1:19 PM EDT Pulse 75 11/03/2020 1:19 PM EDT Temperature 36.4 ??C (97.5 ??F) 11/03/2020 1:19 PM ED T Respiratory Rate 16 11/03/2020 1:19 PM EDT Oxygen Saturation 100% 11/03/2020 1:19 PM EDT Inhaled Oxygen Concentration - - Weight 58.5 kg (129 lb) 11/03/2020 1:19 PM EDT Height - - Body Mass Index 22.86 06/05/2020 8:47 AM EST documented in this encounter Plan of Treatment Upcoming Encounters Date Type Department Care Team (Late st Contact Info) Description 11/13/2023 7:45 AM EDT Office Visit [facility] [place] Medical Oncology at [address] [phone] Ricci Carter MD [address] [place] [address] 11/13/2023 8:30 AM EDT Infusion [facility] [place] at [facility] Outpatient Infusion Center [address] [phone] Ricci Carter MD [address] [place] [phone] Keiko Hallman MD 80 [facility] [place] [address] 11/20/2023 11:00 AM EDT Appointment [facility] Radiology [facility] M[facility] [address] [place] [phone] Ricci Carter MD [address] [place] [phone] 11/20/2023 11:30 AM EDT Appointment [facility] Radiology [facility] 35 [place] [phone] Ricci Carter MD [address] [place], [place] [phone] 03/05/2024 11:00 AM EST Consult [facility] Cardiology [address] [place] [phone] Ricci Carter MD [address] [place] [phone] Jamil Ralph MD [address] [facility] [address] [place], [place] [phone] 05/30/2024 9:00 AM EST Office Visit [facility] Department of Internal Medicine [facility] Ildefonso 1210 [facility] 109 [place], [place] [phone] Consuelo Hobbs PA-C 1210 [facility] 109 [place], [place] [phone] documented as of this encounter Visit Diagnoses Diagnosis Carcinoid tumor of ileum, unspecified whether malignant (HCC)- Primary documented in this encounter Administered Medications Inactive Administered Medications - up to 1 most recent administrations Medication Order MAR Action Action Date Dose Rate Site octreotide (SandoSTATIN LAR) IM injection 40 mg 40 mg, Intramuscular, Once, On Mon11/03/20 at 1330, For 1 dose, Administer IM intragluteal (avoid deltoid administration). For intraMUSCULAR use ONLY. Must be administered immediately after mixing. Given 11/03/2020 1:38 PM EDT 40 mg Left Gluteal Upper Outer Quadrant documented in this encounter Care Teams Rn Psych Relationship Specialty Start Date End Date Consuelo Hobbs PA-C 1210 [facility] 109 [place], [place] [phone] PCP - General 05/01/19 Madi Sharp MD [address] [place], [place] [phone] Gastroenterology 10/02/19 documented as of this encounter
--- OUTSIDE RECORDS SUMMARY | 2023-10-29 17:49 | XMS_ITS | Encounter Summary ---
Author Organization [facility] Address [address] [place] [address] Care Team Providers Care Bus And Trolley Dispatcher Name Role Phone Consuelo Hobbs PA-C Primary Care Provider Madi Sharp MD Unavailable [phone] Reason for Visit * Episode Based Medications (Routine) - Authorized Specialty Diagnoses / Procedures Referred By Contac t Referred To Contact Diagnoses Carcinoid tumor of ileum, unspecified whether malignant (HCC) Keiko Hallman MD 80 [facility] [place] [address] Med Onc Ci [address] [phone] Referral ID Status Reason Start Date Expiration Date V isits Requested Visits Authorized [id number] Authorized 04/29/2022 11/27/2023 5 2 Encounter Details Date Type Department Care Team (Late st Contact Info) Description 01/05/2021 8:45 AM EDT Infusion [facility] [place] at [facility] Outpatient Infusion Center [address] [phone] Ricci Carter MD [address] [place] [address] Keiko Hallman MD 80 [facility] [place] [address] Sienna Alaniz RN 80 [place] [address] Carcinoid tumor of ileum, unspecified whether malignant [...] [facility] Medical Oncology at [address] [phone] Ricci Carter MD [address] [place] [address] 11/13/2023 8:30 AM EDT Infusion [facility] [place] at [facility] Outpatient Infusion Center [address] [phone] Ricci Carter MD [address] [place] [address] Keiko Hallman MD 80 [facility] [place] [address] 11/20/2023 11:00 AM EDT Appointment [facility] Radiology Sh[facility] Mammography [address] [place] [phone] Ricci Carter MD [address] [place] [address] 11/20/2023 11:30 AM EDT Appointment [facility] Radiology [place] Mamm[facility] [address] [place] [phone] Ricci Carter MD [address] [place], [place] [phone] 03/05/2024 11:00 AM EST Consult [facility] Cardiology [address] [place] [phone] Ricci Carter MD [address] [place] [address] Jamil Ralph MD [address] [place] [address] 05/30/2024 9:00 AM EST Office Visit [facility] Department of Internal Medicine [facility] 1210 [facility] [address] [place], [place] [phone] Consuelo Hobbs PA-C 1210 [facility] [address] [place] [address] documented as of this encounter Visit Diagnoses Diagnosis Carcinoid tumor of ileum, unspecified whether malignant (HCC)- Primary documented in this encounter Administered Medications Inactive Administered Medications - up to 1 most recent administrations Medication Order MAR Action Action Date Dose Rate Site octreotide (SandoSTATIN LAR) IM injection 40 mg 40 mg, Intramuscular, Once, On Mon01/05/21 at 1000, For 1 dose, Administer IM intragluteal (avoid deltoid administration). For intraMUSCULAR use ONLY. Must be administered immediately after mixing. Given 01/05/2021 9:14 AM EDT 40 mg Left Gluteal Upper Outer Quadrant documented in this encounter Care Teams Bus And Trolley Dispatcher Relationship Specialty Start Date End Date Consuelo Hobbs PA-C 1210 [facility] 109 [place] [address] PCP - General 05/01/19 Madi Sharp MD 85 [facility] 1000 [place] [address] Gastroenterology 10/02/19 documented as of this encounter
--- OUTSIDE RECORDS SUMMARY | 2023-10-29 17:49 | XMS_ITS | Encounter Summary ---
Author Organization [facility] Address [address] [place] [address] Care Team Providers Care Field Talent Qualification Specialist Name Role Phone Consuelo Hobbs PA-C Primary Care Provider Madi Sharp MD Unavailable [phone] Encounter Details Date Type Department Care Team ([facility] st Contact Info) Description 08/07/2020 Orders Only [facility] [place]: Oncology and Hematology [address] [place] [address] Ricci Carter MD [address] [place] [address] Social History Tobacco Use Types Packs/Day Years [...] Visit [facility] Medical Oncology at [address] [phone] Ricci Carter MD [address] [place], [place] [phone] 11/13/2023 8:30 AM EDT Infusion [facility] [place] at [facility] Outpatient Infusion Center [address] [phone] Ricci Carter MD [address], [place] [phone] Keiko Hallman MD 80 [facility] [place] [address] 11/20/2023 11:00 AM EDT Appointment [facility] Radiology [facility] Mammography [address] [place] [phone] Ricci Carter MD [address], [place] [id number] 11/20/2023 11:30 AM EDT Appointment [facility] Radiology [facility] Mammography [address] [place] [phone] Ricci Carter MD [address] [place], [place] [phone] 03/05/2024 11:00 AM EST Consult [facility] Cardiology [address] [place] [phone] Ricci Carter MD [address] [place] [address] Jamil Ralph MD [address] [place] [facility] [address] [place] [address] 05/30/2024 9:00 AM EST Office Visit [facility] Department of Internal Medicine [facility] [address] [facility] [address] [place] [address] Consuelo Hobbs PA-C [address] [address] documented as of this encounter Visit Diagnoses Not on filedocumented in this encounter Care Teams Field Talent Qualification Specialist Relationship Specialty Start Date End Date Consuelo Hobbs PA-C [address] [place] [address] PCP - General 05/01/19 Madi Sharp MD [address] [place] [address] Gastroenterology 10/02/19 documented as of this encounter
--- OUTSIDE RECORDS SUMMARY | 2023-10-29 17:49 | XMS_ITS | Encounter Summary ---
Author Organization [facility] Address [address] [place] [address] Care Team Providers Care Electronics Recycler Name Role Phone Consuelo Hobbs PA-C Primary Care Provider Madi Sharp MD Unavailable [phone] Encounter Details Date Type Department Care Team (Latest Contact Info) Description 11/23/2020 Travel Social History Tobacco Use Types Packs/Day [...] 7:45 AM EDT Office Visit [facility] [place] Medical Oncology at [address] [phone] Ricci Carter MD 85 [place] [address] 11/13/2023 8:30 AM EDT Infusion [facility] [place] at [facility] Outpatient Infusion Center [address] [phone] Ricci Carter MD [address] [place], [place] [phone] Keiko Hallman MD 80 [facility] [place] [address] 11/20/2023 11:00 AM EDT Appointment [facility] Radiology Shay Mammography [address] [place] [phone] Ricci Carter MD [address] [place], [place] [address] 11/20/2023 11:30 AM EDT Appointment [facility] Radiology Shay Mammography 35 [place] [phone] Ricci Carter MD [address] [place], [place] [phone] 03/05/2024 11:00 AM EST Consult [facility] Cardiology [address] [place] [phone] Ricci Carter MD [address] [place], [place] [phone] Jamil Ralph MD [address] [facility] [address] [place], [place] [phone] 05/30/2024 9:00 AM EST Office Visit [facility] Department of Internal Medicine [facility] [address] [phone] Consuelo Hobbs PA-C [address] [phone] documented as of this encounter Visit Diagnoses Not on filedocumented in this encounter Care Teams Electronics Recycler Relationship Specialty Start Date End Date Consuelo Hobbs PA-C [address] [place] [phone] PCP - General 05/01/19 Madi Sharp MD [address] [place] [address] Gastroenterology 10/02/19 documented as of this encounter
--- OUTSIDE RECORDS SUMMARY | 2023-10-29 17:49 | XMS_ITS | Encounter Summary ---
Author Organization [facility] Address [address] [place] [address] Care Team Providers Care Behaviorist Name Role Phone Consuelo Hobbs PA-C Primary Care Provider Madi Sharp MD Unavailable [phone] Encounter Details Date Type Department Care Team ([facility] st Contact Info) Description 08/28/2020 Orders Only [facility] [place]: Oncology and Hematology [address] [place] [address] Ricci Carter MD [address] [place] [address] Social History Tobacco Use Types Packs/Day Years [...] Visit [facility] Medical Oncology at [address] [phone] Ricci Carter MD [address] [place], [place] [phone] 11/13/2023 8:30 AM EDT Infusion [facility] [place] at [facility] Outpatient Infusion Center [address] [phone] Ricci Carter MD [address] [place] [place], [place] [phone] Keiko Hallman MD 80 [facility] [place] [address] 11/20/2023 11:[address] [facility] Radiology Shay Mammography [address] [place] [address] [phone] Ricci Carter MD [address] [place] [place], [place] [phone] 11/20/2023 11:[address] [facility] Radiology Shay Mammography [address] [place] [address] [phone] Ricci Carter MD [address] [place], [place] [phone] 03/05/2024 11:00 AM EST Consult [facility] Cardiology [address] [place] [address] [phone] Ricci Carter MD [address] [place] [address] Jamil Ralph MD [address] [facility] [address] [place] [address] 05/30/2024 9:00 AM EST Office Visit [facility] Department of Internal Medicine [facility] 1210 [facility] [address] [place] [address] Consuelo Hobbs PA-C [address] [address] documented as of this encounter Visit Diagnoses Not on filedocumented in this encounter Care Teams Behaviorist Relationship Specialty Start Date End Date Consuelo Hobbs PA-C [address] [place] [address] PCP - General 05/01/19 Madi Sharp MD [address] [place] [address] Gastroenterology 10/02/19 documented as of this encounter
--- OUTSIDE RECORDS SUMMARY | 2023-10-29 17:49 | XMS_ITS | Encounter Summary ---
Author Organization [facility] Address [address] [place] [address] Care Team Providers Care Tool Dresser Name Role Phone Consuelo Hobbs PA-C Primary Care Provider Madi Sharp MD Unavailable [phone] Reason for Visit * Reason Comments Injections * Episode Based Medications (Routine) - Authorized Specialty Diagnoses / Procedures Referred By Contbalbir t Referred To Contact Diagnoses Carcinoid tumor of ileum, unspecified whether malignant (HCC) Keiko Hallman MD 80 [facility] [place] [address] [address] [address] Referral ID Status Reason Start Date Expiration Date V isits Requested Visits Authorized [id number] Authorized 04/29/2022 11/27/2023 5 2 Encounter Details Date Type Department Care Team (Late st Contact Info) Description 10/09/2020 8:00 AM EDT Infusion [facility] [place] [facility] Outpatient Infusion Center [address] [phone] Ricci Carter MD [address] [place] [address] Keiko Hallman MD 80 [facility] [place] [address] Sienna Alaniz RN [address] [place] [address] Carcinoid tumor of ileum, unspecified whether malignant [...] Sign Reading Time Taken Comments Blood Pressure 140/71 10/09/2020 8:08 AM EDT Pulse 88 10/09/2020 8:08 AM EDT Temperature 36.3 ??C (97.3 ??F) 10/09/2020 8:08 AM ED T Respiratory Rate - - Oxygen Saturation 100% 10/09/2020 8:08 AM EDT Inhaled Oxygen Concentration - - Weight 59 kg (130 lb) 10/09/2020 8:08 AM EDT Height - - Body Mass Index 23.03 06/05/2020 8:47 AM EST documented in this encounter Plan of Treatment Upcoming Encounters Date Type Department Care Team (Late st Contact Info) Description 11/13/2023 7:45 AM EDT Office Visit [facility] [place] Medical Oncology at [address] [phone] Ricci Carter MD 85 [place] [address] 11/13/2023 8:30 AM EDT Infusion [facility] [place] [facility] Outpatient Infusion Center [address] [phone] Ricci Carter MD [address] [place] [address] Kieko Hallman MD 80 [facility] [place] [address] 11/20/2023 11:00 AM EDT Appointment [facility] Radiology Shay Mammography [address] [place] [phone] Ricci Carter MD [address] [place] [address] 11/20/2023 11:30 AM EDT Appointment [facility] Radiology Shay Mammography 35 [place] [phone] Ricci Carter MD [address] [place] [address] 03/05/2024 11:00 AM EST Consult [facility] Cardiology [place] [address] [facility] [address] [place] [phone] Ricci Carter MD [address] [place] [address] Jamil Ralph MD [address] [facility] [address] [place], [place] [phone] 05/30/2024 9:00 AM EST Office Visit [facility] [address] [phone] Consuelo Hobbs PA-C [address] [address] documented as of this encounter Visit Diagnoses Diagnosis Carcinoid tumor of ileum, unspecified whether malignant (HCC)- Primary documented in this encounter Administered Medications Inactive Administered Medications - up to 1 most recent administrations Medication Order MAR Action Action Date Dose Rate Site octreotide (SandoSTATIN LAR) IM injection 40 mg 40 mg, Intramuscular, Once, On Mon10/09/20 at 0900, For 1 dose, Administer IM intragluteal (avoid deltoid administration). For intraMUSCULAR use ONLY. Must be administered immediately after mixing. Given 10/09/2020 8:13 AM EDT 40 mg Left Gluteal Upper Outer Quadrant documented in this encounter Care Teams Tool Dresser Relationship Specialty Start Date End Date Consuelo Hobbs PA-C [address] [phone] PCP - General 05/01/19 Madi Sharp MD [address] [place] [address] Gastroenterology 10/02/19 documented as of this encounter
--- OUTSIDE RECORDS SUMMARY | 2023-10-29 17:50 | XMS_ITS | Encounter Summary ---
Author Organization [facility] Address [address] [place] [address] Care Team Providers Care Transportation Dispatcher Name Role Phone Consuelo Hobbs PA-C Primary Care Provider Madi Sharp MD Unavailable [phone] Reason for Visit * Episode Based Medications (Routine) - Authorized Specialty Diagnoses / Procedures Referred By Contac t Referred To Contact Diagnoses Carcinoid tumor of ileum, unspecified whether malignant (HCC) Keiko Hallman MD 80 [facility] [place] [address] Med Onc Ci [address] [phone] Referral ID Status Reason Start Date Expiration Date V isits Requested Visits Authorized [id number] Authorized 04/29/2022 11/27/2023 5 2 Encounter Details Date Type Department Care Team (Late st Contact Info) Description 08/07/2020 8:30 AM EDT Infusion [facility] [place] [facility] Outpatient Infusion Center [address] [phone] Ricci Carter MD [address] [place] [address] Keiko Hallman MD 80 [facility] [place] [address] Shawna Petty RN [address] [place] [address] [phone] Carcinoid tumor of ileum, unspecified whether malignant [...] Sign Reading Time Taken Comments Blood Pressure 124/75 08/07/2020 8:14 AM EDT Pulse 80 08/07/2020 8:14 AM EDT Temperature 36.6 ??C (97.8 ??F) 08/07/2020 8:14 AM ED T Respiratory Rate 16 08/07/2020 8:14 AM EDT Oxygen Saturation 100% 08/07/2020 8:14 AM EDT Inhaled Oxygen Concentration - - Weight 60.3 kg (133 lb) 08/07/2020 8:14 AM EDT Height - - Body Mass Index 23.57 06/05/2020 8:47 AM EST documented in this encounter Plan of Treatment Upcoming Encounters Date Type Department Care Team (Late st Contact Info) Description 11/13/2023 7:45 AM EDT Office Visit [facility] [place] Medical Oncology at [address] [phone] Ricci Carter MD [address] [place] [address] 11/13/2023 8:30 AM EDT Infusion [facility] [place] [facility] Outpatient Infusion Center [address] [phone] Ricci Carter MD [address] [place], [place] [phone] Keiko Hallman MD 80 [facility] [place] [address] 11/20/2023 11:00 AM EDT Appointment [facility] Radiology Shay Mammography [address] [place] [address] [phone] Ricci Carter MD [address] [place] [address] 11/20/2023 11:30 AM EDT Appointment [facility] Radiology Shay Mammography 35 [place] [phone] Ricci Carter MD [address] [place] [address] 03/05/2024 11:00 AM EST Consult [facility] Cardiology [place] [address] [facility] [address] [place] [phone] Ricci Carter MD [address] [place] [address] Jamil Ralph MD [address] [place] [facility] [address] [place], [place] [phone] 05/30/2024 9:00 AM EST Office Visit [facility] 1210 [facility] 109 [place], [place] [phone] Consuelo Hobbs PA-C 1210 [facility] 109 [place], [place] [phone] documented as of this encounter Visit Diagnoses Diagnosis Carcinoid tumor of ileum, unspecified whether malignant (HCC)- Primary documented in this encounter Administered Medications Inactive Administered Medications - up to 1 most recent administrations Medication Order MAR Action Action Date Dose Rate Site octreotide (SandoSTATIN LAR) IM injection 40 mg 40 mg, Intramuscular, Once, On Mon08/07/20 at 0900, For 1 dose, Administer IM intragluteal (avoid deltoid administration). For intraMUSCULAR use ONLY. Must be administered immediately after mixing. Given 08/07/2020 8:35 AM EDT 40 mg Left Gluteal Upper Outer Quadrant documented in this encounter Care Teams Transportation Dispatcher Relationship Specialty Start Date End Date Consuelo Hobbs PA-C [address] [place] [phone] PCP - General 05/01/19 Madi Sharp MD [address] [place], [place] [phone] Gastroenterology 10/02/19 documented as of this encounter
--- OUTSIDE RECORDS SUMMARY | 2023-10-29 17:50 | XMS_ITS | Encounter Summary ---
Author Organization [facility] Address [address] [place] [address] Care Team Providers Care Audiology Director Name Role Phone Consuelo Hobbs PA-C Primary Care Provider Madi Sharp MD Unavailable [phone] Encounter Details Date Type Department Care Team (Latest Contact Info) Description 03/26/2020 Travel Social History Tobacco Use Types Packs/Day Years Used Date Smoking Tobacco: Every Day Smokeless Tobacco: Never Alcohol Use Standard Drinks/Week Comments Yes 2 [...] have Coronavirus / COVID-19? No / Unsure 03/26/2020 8:13 AM EST documented as of this encounter Plan of Treatment Upcoming Encounters Date Type Department Care Team (Late st Contact Info) Description 11/13/2023 7:45 AM EDT Office Visit [facility] Cancer [place] Medical Oncology at [address] [phone] Ricci Carter MD [address] [place], [place] [phone] 11/13/2023 8:30 AM EDT Infusion [facility] [place] [facility] Outpatient Infusion Center [address] [phone] Ricci Carter MD [address] [place], [place] [phone] Keiko Hallman MD 80 [facility] [place] [address] 11/20/2023 11:00 AM EDT Appointment [facility] Radiology Shay Mammography [address] [place] [address] [phone] Ricci Carter MD [address] [place], [place] [phone] 11/20/2023 11:30 AM EDT Appointment [facility] Radiology Shay Mammography [address] [place] [address] [phone] Ricci Carter MD [address] [place] [address] 03/05/2024 11:00 AM EST Consult [facility] Medical [facility] Cardiology [address] [place] [phone] Ricci Carter MD [address] [place], [place] [phone] Jamil Ralph MD [address] [place] [facility] [address] [place] [address] 05/30/2024 9:00 AM EST Office Visit [facility] Department of Internal Medicine [place] [address] [facility] [address] [place] [address] Consuelo Hobbs PA-C [address] [phone] documented as of this encounter Visit Diagnoses Not on filedocumented in this encounter Care Teams Audiology Director Relationship Specialty Start Date End Date Consuelo Hobbs PA-C [address] [phone] PCP - General 05/01/19 Madi Sharp MD [address] [place] [address] Gastroenterology 10/02/19 documented as of this encounter
--- OUTSIDE RECORDS SUMMARY | 2023-10-29 17:50 | XMS_ITS | Encounter Summary ---
Author Organization [facility] Address [address] [place] [address] Care Team Providers Care Salesperson Flowers Name Role Phone Consuelo Hobbs PA-C Primary Care Provider Madi Sharp MD Unavailable [phone] Reason for Visit * Episode Based Medications (Routine) - Authorized Specialty Diagnoses / Procedures Referred By Contac t Referred To Contact Diagnoses Carcinoid tumor of ileum, unspecified whether malignant (HCC) Keiko Hallman MD 80 [facility] [place] [address] Med Onc Ci [address] [phone] Referral ID Status Reason Start Date Expiration Date V isits Requested Visits Authorized [id number] Authorized 04/29/2022 11/27/2023 5 2 Encounter Details Date Type Department Care Team (Late st Contact Info) Description 02/28/2020 12:00 PM EST Infusion [facility] Cancer [place] [facility] Outpatient Infusion Center [address] [phone] Ricci Carter MD [address] [place] [address] Keiko Hallman MD [address] [place] [address] [place] [address] Han Varner, RN [address] [place] [address] Canceled (Patient Sick) Social History Tobacco Use Types Packs/Day Years [...] have Coronavirus / COVID-19? No / Unsure 03/02/2020 9:56 AM EST documented as of this encounter Plan of Treatment Upcoming Encounters Date Type Department Care Team (Late st Contact Info) Description 11/13/2023 7:45 AM EDT Office Visit [facility] Medical Oncology at [address] [phone] Ricci Carter MD [address] [place] [address] 11/13/2023 8:30 AM EDT Infusion [facility] Cancer [place] at [facility] Outpatient Infusion Center [address] [phone] Ricci Carter MD [address] [place] [address] Keiko Hallman MD [address] [place] [address] [place] [address] 11/20/2023 11:00 AM EDT Appointment [facility] Radiology Shay Mammography 35 [place] [phone] Ricci Carter MD 85 [place] [address] 11/20/2023 11:30 AM EDT Appointment [facility] Radiology Shay Mammography [address] [place] [phone] Ricci Carter MD [address] [place] [phone] 03/05/2024 11:00 AM EST Consult [facility] Cardiology [address] [place] [phone] Ricci Carter MD 85 [place] [address] Jamil Ralph MD [address] [facility] [address] [place] [address] 05/30/2024 9:00 AM EST Office Visit [facility] Internal [facility] 1210 [facility] [address] [place] [address] Consuelo Hobbs PA-C 1210 [facility] [address] [place] [address] documented as of this encounter Visit Diagnoses Not on filedocumented in this encounter Care Teams Salesperson Flowers Relationship Specialty Start Date End Date Consuelo Hobbs PA-C 1210 [facility] [address] [place] [address] PCP - General 05/01/19 Madi Sharp MD 85 [place] [address] Gastroenterology 10/02/19 documented as of this encounter
--- OUTSIDE RECORDS SUMMARY | 2023-10-29 17:50 | XMS_ITS | Encounter Summary ---
Author Organization [facility] Address [address] [place] [address] Care Team Providers Care Django Developer Name Role Phone Consuelo Hobbs PA-C Primary Care Provider Madi Sharp MD Unavailable [phone] Encounter Details Date Type Department Care Team (Latest Contact Info) Description 03/30/2020 Travel Social History Tobacco Use Types Packs/Day [...] have Coronavirus / COVID-19? No / Unsure 03/30/2020 3:34 PM EST documented as of this encounter Plan of Treatment Upcoming Encounters Date Type Department Care Team (Late st Contact Info) Description 11/13/2023 7:45 AM EDT Office Visit [facility] Cancer [place] Medical Oncology at [address] [phone] Ricci Carter MD [address] [place] [address] 11/13/2023 8:30 AM EDT Infusion [facility] [place] at [facility] Outpatient Infusion Center [address] [phone] Ricci Carter MD [address] [place] [phone] Keiko Hallman MD 80 [facility] [place] [address] 11/20/2023 11:00 AM EDT Appointment [facility] Radiology Shay Mammography [address] [place] [address] [phone] Ricci Carter MD [address] [place] [address] 11/20/2023 11:30 AM EDT Appointment [facility] Radiology Shay Mammography 35 [place] [phone] Ricci Carter MD [address] [place], [place] [phone] 03/05/2024 11:00 AM EST Consult [facility] Cardiology [place] [address] [facility] [address] [place] [phone] Ricci Carter MD [address] [place] [address] Jamil Ralph MD [address] [place] [facility] [address] [place], [place] [phone] 05/30/2024 9:00 AM EST Office Visit [facility] Department of Internal Medicine [facility] [address] [address] Consuelo Hobbs PA-C [address] [phone] documented as of this encounter Visit Diagnoses Not on filedocumented in this encounter Care Teams Django Developer Relationship Specialty Start Date End Date Consuelo Hobbs PA-C [address] [place] [phone] PCP - General 05/01/19 Madi Sharp MD [address] [place] [address] Gastroenterology 10/02/19 documented as of this encounter
--- OUTSIDE RECORDS SUMMARY | 2023-10-29 17:50 | XMS_ITS | Encounter Summary ---
Author Organization [facility] Address [address] [place] [address] Care Team Providers Care Clinical Trainer Name Role Phone Consuelo Hobbs PA-C Primary Care Provider Madi Sharp MD Unavailable [phone] Encounter Details Date Type Department Care Team (Latest Contact Info) Description 06/05/2020 Travel Social History Tobacco Use Types Packs/Day [...] have Coronavirus / COVID-19? No / Unsure 06/05/2020 8:35 AM EST documented as of this encounter Plan of Treatment Upcoming Encounters Date Type Department Care Team (Late st Contact Info) Description 11/13/2023 7:45 AM EDT Office Visit [facility] Cancer [place] Medical Oncology at [address] [phone] Ricci Carter MD 85 [place] [address] 11/13/2023 8:30 AM EDT Infusion [facility] [place] [facility] Outpatient Infusion Center [address] [phone] Ricci Carter MD [address] [place], [place] [phone] Keiko Hallman MD 80 [facility] [place] [address] 11/20/2023 11:00 AM EDT Appointment [facility] Radiology Shay Mammography [address] [place] [address] [phone] Ricci Carter MD [address] [place], [place] [phone] 11/20/2023 11:30 AM EDT Appointment [facility] Radiology Shay Mammography 35 [place] [phone] Ricci Carter MD [address] [place] [phone] 03/05/2024 11:00 AM EST Consult [facility] Cardiology [address] [place] [phone] Ricci Carter MD [address] [place], [place] [phone] Jamil Ralph MD [address] [place], [place] [phone] 05/30/2024 9:00 AM EST Office Visit [facility] [address] [phone] Consuelo Hobbs PA-C [address] [phone] documented as of this encounter Visit Diagnoses Not on filedocumented in this encounter Care Teams Clinical Trainer Relationship Specialty Start Date End Date Consuelo Hobbs PA-C [address] [place] [address] [phone] PCP - General 05/01/19 Madi Sharp MD [address] [place] [address] Gastroenterology 10/02/19 documented as of this encounter
--- OUTSIDE RECORDS SUMMARY | 2023-10-29 17:50 | XMS_ITS | Encounter Summary ---
Author Organization [facility] Address [address] [place] [address] Care Team Providers Care Hazardous Waste Technician Name Role Phone Consuelo Hobbs PA-C Primary Care Provider Madi Sharp MD Unavailable [phone] Encounter Details Date Type Department Care Team (Latest Contact Info) Description 06/26/2020 Travel Social History Tobacco Use Types Packs/Day [...] have Coronavirus / COVID-19? No / Unsure 06/26/2020 8:42 AM EDT documented as of this encounter Plan of Treatment Upcoming Encounters Date Type Department Care Team ( st Contact Info) Description 11/13/2023 7:45 AM EDT Office Visit [facility] [place] Medical Oncology at [address] [phone] Ricci Carter MD [address] [place] [address] 11/13/2023 8:30 AM EDT Infusion [facility] [place] [facility] Outpatient Infusion Center [address] [phone] Ricci Carter MD [address] [place], [place] [phone] Keiko Hallman MD 80 [facility] [place] [address] 11/20/2023 11:00 AM EDT Appointment [facility] Radiology Shay Mammography [address] [place] [address] [phone] Ricci Carter MD [address] [place] [phone] 11/20/2023 11:30 AM EDT Appointment [facility] Radiology Shay Mammography 35 [place] [phone] Ricci Carter MD [address] [place], [place] [phone] 03/05/2024 11:00 AM EST Consult [facility] Cardiology [address] [place] [phone] Ricci Carter MD [address] [place] [phone] Jamil Ralph MD [address] [place] [facility] [address] [place], [place] [phone] 05/30/2024 9:00 AM EST Office Visit [facility] Department of Internal Medicine [facility] [address] [phone] Consuelo Hobbs PA-C [address] [phone] documented as of this encounter Visit Diagnoses Not on filedocumented in this encounter Care Teams Hazardous Waste Technician Relationship Specialty Start Date End Date Consuelo Hobbs PA-C [address] [place] [phone] PCP - General 05/01/19 Madi Sharp MD [address] [place] [address] Gastroenterology 10/02/19 documented as of this encounter
--- OUTSIDE RECORDS SUMMARY | 2023-10-29 17:50 | XMS_ITS | Encounter Summary ---
Author Organization [facility] Address [address] [place] [address] Care Team Providers Care Yard Attendant Name Role Phone Consuelo Hobbs PA-C Primary Care Provider Madi Sharp MD Unavailable [phone] Reason for Visit * Reason Comments Injections * Episode Based Medications (Routine) - Authorized Specialty Diagnoses / Procedures Referred By Contbalbir t Referred To Contact Diagnoses Carcinoid tumor of ileum, unspecified whether malignant (HCC) Keiko Hallman MD [address] [facility] [place] [address] [address] [phone] Referral ID Status Reason Start Date Expiration Date V isits Requested Visits Authorized [id number] Authorized 04/29/2022 11/27/2023 5 2 Encounter Details Date Type Department Care Team (Late st Contact Info) Description 06/26/2020 8:30 AM EDT Infusion [facility] [place] [facility] [address] [phone] Ricci Carter MD [address] [place] [address] Keiko Hallman MD [address] [facility] [place] [address] Sienna Alaniz RN [address] [place] [address] Carcinoid tumor of ileum, unspecified whether malignant [...] Sign Reading Time Taken Comments Blood Pressure 114/68 06/26/2020 8:42 AM EDT Pulse 64 06/26/2020 8:42 AM EDT Temperature 36.4 ??C (97.6 ??F) 06/26/2020 8:42 AM ED T Respiratory Rate 16 06/26/2020 8:42 AM EDT Oxygen Saturation 100% 06/26/2020 8:42 AM EDT Inhaled Oxygen Concentration - - Weight 60.7 kg (133 lb 14.4 oz) 06/26/2020 8:42 AM EDT Height - - Body Mass Index 23.73 06/05/2020 8:47 AM EST documented in this encounter Plan of Treatment Upcoming Encounters Date Type Department Care Team (Late st Contact Info) Description 11/13/2023 7:45 AM EDT Office Visit [facility] [place] [phone] Ricci Carter MD [address] [place] [address] 11/13/2023 8:30 AM EDT Infusion [facility] [place] [facility] [address] [phone] Ricci Carter MD [address] [place] [place], [place] [phone] Keiko Hallman MD 80 [facility] [place] [address] 11/20/2023 11:00 AM EDT Appointment [facility] Radiology [facility] [address] [place] [address] [phone] Ricci Carter MD [address] [place], [place] [phone] 11/20/2023 11:30 AM EDT Appointment [facility] Radiology [facility] [address] [place] [phone] Ricci Carter MD [address] [place] [address] 03/05/2024 11:00 AM EST Consult [facility] Cardiology [place] [address] [facility] [address] [place] [phone] Ricci Carter MD [address] [place] [address] Jamil Ralph MD [address] [facility] [address] [place], [place] [phone] 05/30/2024 9:00 AM EST Office Visit [facility] Department of Internal Medicine [facility] [address] [phone] Consuelo Hobbs PA-C [address] [phone] documented as of this encounter Visit Diagnoses Diagnosis Carcinoid tumor of ileum, unspecified whether malignant (HCC)- Primary documented in this encounter Administered Medications Inactive Administered Medications - up to 1 most recent administrations Medication Order MAR Action Action Date Dose Rate Site octreotide (SandoSTATIN LAR) IM injection 40 mg 40 mg, Intramuscular, Once, On Mon06/26/20 at 0930, For 1 dose, Administer IM intragluteal (avoid deltoid administration). For intraMUSCULAR use ONLY. Must be administered immediately after mixing. Given 06/26/2020 8:48 AM EDT 40 mg Left Gluteal Upper Outer Quadrant documented in this encounter Care Teams Yard Attendant Relationship Specialty Start Date End Date Consuelo Hobbs PA-C [address] [place] [phone] PCP - General 05/01/19 Madi Sharp MD [address] [place] [address] Gastroenterology 10/02/19 documented as of this encounter
--- OUTSIDE RECORDS SUMMARY | 2023-10-29 17:50 | XMS_ITS | Encounter Summary ---
Author Organization [facility] Address [address] [place] [address] Care Team Providers Care Audio Experience Expert Name Role Phone Consuelo Hobbs PA-C Primary Care Provider Madi Sharp MD Unavailable [phone] Encounter Details Date Type Department Care Team (Late Contact Info) Description 03/26/2020 Scanned Document [facility] Cancer [place] Medical Oncology at [address] [phone] Provider, Dodie, [address] [place] [address] Social History Tobacco Use Types Packs/Day Years [...] 7:45 AM EDT Office Visit [facility] Medical Oncology at [address] [phone] Ricci Carter MD [address] [place] [address] 11/13/2023 8:30 AM EDT Infusion [facility] [place] [facility] Outpatient Infusion Center [address] [phone] Ricci Carter MD [address] [place], [place] [phone] Keiko Hallman MD 80 [facility] [place] [address] 11/20/2023 11:00 AM EDT Appointment [facility] Radiology [facility] [address] [place] [phone] Ricci Carter MD [address] [place] [place], [place] [phone] 11/20/2023 11:30 AM EDT Appointment [facility] Radiology [place] [facility] [address] [place] [phone] Ricci Carter MD [address] [place] [place], [place] [phone] 03/05/2024 11:00 AM EST Consult [facility] Cardiology [address] [place] [address] [phone] Ricci Carter MD [address] [place], [place] [phone] Jamil Ralph MD [address] [place] [address] 05/30/2024 9:00 AM EST Office Visit [facility] Department of Internal Medicine [facility] 1210 [facility] [address] [place] [address] Consuelo Hobbs PA-C 1210 [facility] [address] [place] [address] documented as of this encounter Visit Diagnoses Not on filedocumented in this encounter Care Teams Audio Experience Expert Relationship Specialty Start Date End Date Consuelo Hobbs PA-C [address] [place] [address] PCP - General 05/01/19 Madi Sharp MD [address] [address] Gastroenterology 10/02/19 documented as of this encounter
--- OUTSIDE RECORDS SUMMARY | 2023-10-29 17:50 | XMS_ITS | Encounter Summary ---
Author Organization [facility] Address [address] [place] [address] Care Team Providers Care Charge Preparation Technician Name Role Phone Consuelo Hobbs PA-C Primary Care Provider Madi Sharp MD Unavailable [phone] Encounter Details Date Type Department Care Team ([facility] st Contact Info) Description 01/20/2020 10:05 AM EDT Office Visit [facility] [place]: Oncology and Hematology [address] [phone] Ricci Carter MD [address] [place] [address] Carcinoid tumor of ileum (Primary Dx); Encounter for monitoring octreotide therapy; Oncology follow-up encounter; Encounter to discuss test results; Diarrhea, unspecified type; Needs flu shot; Palpitations; Medical marijuana use Social History Tobacco Use [...] or suspected to have Coronavirus / COVID-19? Unable to assess 01/20/2020 10:54 AM ED T documented as of this encounter Last Filed Vital Signs Vital Sign Reading Time Taken Comments Blood Pressure 115/76 01/20/2020 10:03 AM EDT Pulse 93 01/20/2020 10:03 AM EDT Temperature 36 ??C (96.8 ??F) 01/20/2020 10: 03 AM EDT Respiratory Rate - - Oxygen Saturation 97% 01/20/2020 10: 03 AM EDT Inhaled Oxygen Concentration - - Weight 60.2 kg (132 lb 12.8 oz) 020 10:03 AM EDT Height - - Body Mass Index 23.53 01/16/2020 8:22 AM EDT documented in this encounter Progress Notes * Ricci Carter MD - 01/20/2020 10:05 AM EDT Images from the original note were not included. Medical Oncology/Hematology Progress Note Healthcare Team: CATHI Palacios Subjective: Date of visit is: January 20, 2020 Rody Sotelo is a 49 y.o. female who presents here today for a follow- up visit regarding carcinoid. ONCOLOGY HISTORY: Interim History: She continues to receive Sandostatin LAR (40 mg) with her last dose administered on January 16, 2020. She has not seen toppiece cutter. She reports occasional palpitations, but are less frequent. Provokedby anxiety. She did cut her caffeine intake. Diarrhea has not changed. Stools: 4-5 stools per day. Soft, not formed. One episode of cramping the other day. Has not required breakthrough Octreotide. She started colestipol, QD-BID. She does feel it is helping. She is also taking Kytril and Creon, loperamide, 6-9 tabs per day. She will take MSO4 only when she does not work. She denies flushing. Pain: 0 REVIEW OF SYSTEMS: Review of Systems Constitutional: Positive for fatigue (she has been active). Negative for appetite change, fever andunexpected weight change. HENT: Negative for mouth sores and nosebleeds. Respiratory: Negative for cough, shortness of breath and wheezing. Cardiovascular: Negative for chest pain and leg swelling. Gastrointestinal: Negative for blood in stool, nausea and vomiting. Musculoskeletal: Negative for back pain. Neurological: Positive for headaches (migraines stable). Negative for dizziness and light-headedness. Hematological: [...] Disp: 120 tablet, Rfl: 5 ??? CREON [address] Particles capsule, 36,000 Units [...] ??? granisetron (KYTRIL) 1 MG tablet, Take 1 tablet (1 mg total) by mouth daily., Disp: 30 tablet, Rfl: 5 ??? loperamide (IMODIUM A-D) 2 MG capsule, Take 2 mg by mouth 4 (four) times a day as needed for diarrhea., Disp: , Rfl: ??? Multiple Vitamin tablet, Take 1 tablet by mouth daily., Disp: , Rfl: ??? octreotide (SandoSTATIN LAR) 10 MG IM injection, Inject 10 mg into the shoulder, thigh, or buttocks every 28 days (4 weeks)., Disp: , Rfl: ??? octreotide (SandoSTATIN) 100 MCG/ML injection, Inject 1 mL (100 mcg total) under the skin 3 times daily (every 8 hours) as needed (diarrhea, flushing)., Disp: 90 mL, Rfl: 11 ??? rizatriptan (MAXALT-LENS GRINDER) 10 MG disintegrating tablet, DISSOLVE ONE TABLET BY MOUTH EVERY DAY ASNEEDED, Disp: 9 tablet, Rfl: 0 ??? Vitamin D3 (CHOLECALICEROL) 50 MCG (2000 UT) tablet, Take 2,000 Units by mouth daily., Disp: , Rfl: ??? morphine (ROXANOL) 10 mg/5 mL solution, TK 2.5 TO 5 ML PO Q 6 H PRF , Disp: , Rfl: No current facility-administered medications for this visit. [...] Every Day Smoker Smokeless Tobacco Never Used Social History Substance and Sexual Activity Alcohol Use Yes ??? Alcohol/week: 2.0 standard drinks ??? Types: 2 Glasses of wine per week Social History Substance and Sexual Activity Drug Use Not on file Objective: Wt Readings from Last 2 Encounters: 01/20/20 60.2 kg (132 lb 12.8 oz) 01/16/20 62.1 kg (137 lb) . Physical Exam Vitals: 01/20/20 1003 BP: 115/76 BP Location: Right arm Pulse: 93 Temp: 96.8 ??F (36 ??C) SpO2: 97% Weight: 60.2 kg (132 lb 12.8 oz) Performance status: ECOG (0) Fully active, able to carry on all predisease performance without restriction Physical Exam Constitutional: She is oriented to person, place, and time. She appears well- developed and well-nourished. No distress. HENT: Head: Normocephalic and atraumatic. Eyes: Pupils are equal, round, and reactive to light. Conjunctivae and EOM are normal. No scleral icterus. Neck: Normal range of motion. Neck supple. Cardiovascular: Normal rate. No murmur heard. Pulmonary/Chest: Effort normal and breath sounds normal. No respiratory distress. She has no wheezes. She has no rales. She exhibits no tenderness. Abdominal: Soft. Bowel sounds are normal. She exhibits no distension and no mass. There is no splenomegaly or hepatomegaly. There is no abdominal tenderness. There is no rebound and no guarding. Musculoskeletal: Normal range of motion. Lymphadenopathy: Head (right side): No submental, no submandibular, no preauricular, no posterior auricular and no occipital adenopathy present. Head (left side): No submental, no submandibular, no preauricular, no posterior auricular and no occipital adenopathy present. She has no cervical adenopathy. She has no axillary adenopathy. Right: No supraclavicular adenopathy present. Left: No supraclavicular adenopathy present. Neurological: She is alert and oriented to person, place, and time. She has normal reflexes. No cranial nerve deficit. Skin: Skin is warm and dry. No rash noted. No erythema. No pallor. Psychiatric: She has a normal mood and affect. Her behavior is normal. Judgment and thought contentnormal. Results: - January 09, 2020, MRI ABDOMEN and pelvis WITH AND WITHOUT CONTRAST ?? CLINICAL INFORMATION: Benign carcinoid tumor of the ileum. Restaging carcinoid. Assess for change. Right-sided lower abdominal pain. ?? COMPARISON: MRI 05/13/2019 and earlier ?? FINDINGS: ?? LUNG BASES: Lung bases are clear. ?? LIVER: No loss of signal on opposed phase gradient echo T1 weighted images to suggest hepatic steatosis. Liver enhances normally. No focal lesion seen. Hepatic and portal veins enhance normally. ?? GALLBLADDER AND BILIARY TREE: Gallbladder surgically absent. There is mild prominence of the common bile duct, not unexpected status post remote prior cholecystectomy. Is unchanged from prior studies. ?? SPLEEN: Normal. Normal size. No focal lesion. ?? PANCREAS: Normal. ?? ADRENAL GLANDS: Normal. No adrenal mass. ?? KIDNEYS AND URETERS: Normal symmetric renal enhancement. No hydronephrosis or solid mass. 1.7 cm right mid renal cyst. ?? LYMPHOVASCULAR STRUCTURES: Normal caliber aorta. IVC patent. No pathologically enlarged abdominal or retroperitoneal lymphadenopathy by short axis size criteria. ?? Again seen is a multilobular enhancing mass in the right central mesentery at the level of the lower pole the right kidney. This measures 2.4 x 2.0 cm transaxial by 2.1 cm craniocaudal, similar to prior studies (2.3 x 2.0 cm 05/13/2019 and 2.5 x 2.1 cm 11/28/2018). Because of motion artifact, the smaller nodular component seen slightly cephalad on prior studies is not as well seen. On T2-weighted images is again seen in series 10 image , measuring 8mm, as was the case previously. ?? PELVIS: ?? UTERUS: Anteverted uterus has a normal configuration and measures 7.3 x 3.4 x 5.6 cm (sdhlul-nw-tixaqg x anterior-posterior x transverse). Normal endometrial thickness, 0.4 cm. Junctional zone is normal in signal and thickness. No focal uterine mass seen. There is a section scar of the lower uterine segment there is a 1.6 cm leiomyoma in the right lower uterine segment. There is a 1.1 cm leiomyoma in the left uterine body. ?? CERVIX: Incidentally noted nabothian cyst again seen. Otherwise normal. ?? VAGINA: Normal; no mass seen. ?? RIGHT OVARY: The right ovary measures 2.2 x 2.1 x 2.0 cm. There is a hemorrhagic likely corpus luteum cyst in the right ovary with additional small follicles. ?? LEFT OVARY: The left ovary measures 2.8 x 1.2 x 2.1 cm. There is a 1.7 cm simple cyst in the left ovary. ?? BLADDER: Urinary bladder normal. ?? PELVIC FREE FLUID: No free fluid or ascites. ?? LYMPH NODES: No pathologically enlarged lymph nodes. ?? OSSEOUS STRUCTURES: No acute or suspicious osseous abnormalities. ?? IMPRESSION: Similar appearance of 2 adjacent well-circumscribed lobular mesenteric masses in the right mid abdomen. No new abnormality seen. - December 16, 2019, colonoscopy Entire examined colon was normal. End to side ileocolonic anastomosis characterized by healthy-appearing mucosa. Assessment/Plan: 1. Carcinoid, pH3G9H8 A. Diagnosed July 11, 2013 1. S/p small bowel resection and right hemicolectomy a. Path- well- differentiated neuroendocrine tumor B. Receiving Sandostatin LAR, initiated October 17, 2013 1. re- staging MR abdomen/pelvis (January 09, 2020)- SD In summary, Rody is a 49 y.o. female with a PMHx significant for: migraines, PCOS, IBS and PVCs whopresents here today for a follow- up visit regarding carcinoid. She continues to receive Sandostatin LAR (40 mg) with her last dose administered on January 16, 2020. She is tolerating treatment well. Her symptoms overall, remained stable. She has not required anybreakthrough short acting octreotide. She is using less loperamide. She has cut her caffeine intake. On January 09, 2020, restaging MR abdomen/pelvis revealed: SD More specifically, there is a similar appearance of 2 adjacent well- circumscribed lobular mesenteric masses in the right mid abdomen. No new abnormality seen. I have personally reviewed MRI images, as well as results with Rody today. Given stability, I recommended that she continue Sandostatin LAR 40 mg (every 3 weeks). On December 16, 2019, colonoscopy was normal. Her next Sandostatin will be 02/06/5020. Colestipol renewed. No other therapeutic changes. Ordered labs, which were to be done last visit. 2. Use of medical marijuana She continues to use medical marijuana to help manage her diarrhea with continued good effect. 3. Palpitations Her cardiology appointment has been rescheduled to late February 2020. No orders of the defined types were placed in this encounter. The patient will return in 6 weeks. There are no Patient Instructions on file for this visit. documented in this encounter Plan of Treatment Upcoming Encounters Date Type Department Care Team (Late st Contact Info) Description 11/13/2023 7:45 AM EDT Office Visit [facility] [place] Medical Oncology at [address] [phone] Ricci Carter MD [address] [place] [address] 11/13/2023 8:30 AM EDT Infusion [facility] [place] [facility] Outpatient Infusion Center [address] [phone] Ricci Carter MD [address] [place] [address] Keiko Hallman MD 80 [facility] [place] [address] 11/20/2023 11:00 AM EDT Appointment [facility] Radiology [facility] Mammography [address] [place] [phone] Ricci Carter MD [address] [place] [address] 11/20/2023 11:30 AM EDT Appointment [facility] Radiology [facility] Mammography [address] [place] [phone] Ricci Carter MD [address] [place], [place] [phone] 03/05/2024 11:00 AM EST Consult [facility] Cardiology [place] [address] [facility] [address] [place] [phone] Ricci Carter MD [address] [place] [address] Jamil Ralph MD [address] [place] [facility] [address] [place], [place] [phone] 05/30/2024 9:00 AM EST Office Visit [facility] Department of Internal Medicine [facility] [place] [address] [phone] Consuelo Hobbs PA-C [address] [phone] documented as of this encounter Visit Diagnoses Diagnosis Carcinoid tumor of ileum (HCC)- Primary Encounter for monitoring octreotide therapy Oncology follow-up encounter Encounter to discuss test results Other specified counseling Diarrhea, unspecified type Needs flu shot Need for prophylactic vaccination and inoculation against influenza Palpitations Medical marijuana use Other problems related to lifestyle documented in this encounter Care Teams Charge Preparation Technician Relationship Specialty Start Date End Date Consuelo Hobbs PA-C [address] [phone] PCP - General 05/01/19 Madi Sharp MD [address] [address] Gastroenterology 10/02/19 documented as of this encounter
--- OUTSIDE RECORDS SUMMARY | 2023-10-29 17:50 | XMS_ITS | Encounter Summary ---
Author Organization [facility] Address [address] [place] [address] Care Team Providers Care Bakery Worker Name Role Phone Consuelo Hobbs PA-C Primary Care Provider Madi Sharp MD Unavailable [phone] Encounter Details Date Type Department Care Team (Latest Contact Info) Description 03/02/2020 Travel Social History Tobacco Use Types Packs/Day [...] Description 11/13/2023 7:45 AM EDT Office Visit [facility] Medical Oncology at [address] [phone] Ricci Carter MD [address] [place], [place] [phone] 11/13/2023 8:30 AM EDT Infusion [facility] Outpatient Infusion Center [address] [phone] Ricci Carter MD [address] [place], [place] [phone] Keiko Hallman MD 80 [facility] [place] [address] 11/20/2023 11:00 AM EDT Appointment [facility] Radiology [facility] Mammography [address] [place] [address] [phone] Ricci Carter MD [address] [place], [place] [phone] 11/20/2023 11:30 AM EDT Appointment [facility] Radiology [facility] Mammography [address] [place] [phone] Ricci Carter MD [address] [place] [address] 03/05/2024 11:00 AM EST Consult [facility] Cardiology [address] [place] [address] [phone] Ricci Carter MD [address] [place], [place] [phone] Jamil Ralph MD [address] [place] [facility] [address] [place] [address] 05/30/2024 9:00 AM EST Office Visit [facility] Department of Internal Medicine [place] [phone] [facility] [address] [place] [address] Consuelo Hobbs PA-C [address] [phone] documented as of this encounter Visit Diagnoses Not on filedocumented in this encounter Care Teams Bakery Worker Relationship Specialty Start Date End Date Consuelo Hobbs PA-C [address] [phone] PCP - General 05/01/19 Madi Sharp MD [address] [place] [address] Gastroenterology 10/02/19 documented as of this encounter
--- OUTSIDE RECORDS SUMMARY | 2023-10-29 17:50 | XMS_ITS | Encounter Summary ---
Author Organization [facility] Address [address] [place] [address] Care Team Providers Care Hoist Mechanic Name Role Phone oCnsuelo Hobbs PA-C Primary Care Provider Madi Sharp MD Unavailable [phone] Encounter Details Date Type Department Care Team (Latest Contact Info) Description 05/15/2020 Travel Social History Tobacco Use Types Packs/Day [...] have Coronavirus / COVID-19? No / Unsure 05/15/2020 8:21 AM EST documented as of this encounter Plan of Treatment Upcoming Encounters Date Type Department Care Team (Late st Contact Info) Description 11/13/2023 7:45 AM EDT Office Visit [facility] [place] Medical Oncology at [address] [phone] Ricci Carter MD [address] [place] [address] 11/13/2023 8:30 AM EDT Infusion [facility] [place] at [facility] [address] [phone] Ricci Carter MD [address] [place], [place] [phone] Keiko Hallman MD 80 [facility] [place] [address] 11/20/2023 11:00 AM EDT Appointment [facility] Radiology [place] [facility] [address] [place] [phone] Ricci Carter MD [address] [place] [phone] 11/20/2023 11:30 AM EDT Appointment [facility] Radiology [place] [facility] [address] [place] [phone] Ricci Carter MD [address] [place] [id number] 03/05/2024 11:00 AM EST Consult [facility] Cardiology [address] [place] [phone] Ricci Carter MD [address] [place], [place] [phone] Jmail Ralph MD [address] [place], [place] [phone] 05/30/2024 9:00 AM EST Office Visit [facility] Department of Internal Medicine [facility] [address] [phone] Consuelo Hobbs PA-C [address] [phone] documented as of this encounter Visit Diagnoses Not on filedocumented in this encounter Care Teams Hoist Mechanic Relationship Specialty Start Date End Date Consuelo Hobbs PA-C [address] [place] [phone] PCP - General 05/01/19 Madi Sharp MD [address] [place] [address] Gastroenterology 10/02/19 documented as of this encounter
--- OUTSIDE RECORDS SUMMARY | 2023-10-29 17:50 | XMS_ITS | Encounter Summary ---
Author Organization [facility] Address [address] [place] [address] Care Team Providers Care Corset Maker Name Role Phone Consuelo Hobbs PA-C Primary Care Provider Madi Sharp MD Unavailable [phone] Encounter Details Date Type Department Care Team ([facility] st Contact Info) Description 03/02/2020 9:05 AM EST Office Visit [facility] [place]: Oncology and Hematology [address] [phone] Ricci Carter MD [address] [place] [address] Carcinoid tumor of ileum (Primary Dx); Diarrhea; Encounter for monitoring octreotide therapy; Oncology follow-up encounter; Palpitations Social History Tobacco Use Types Packs/Day Years [...] Coronavirus / COVID-19? No / Unsure 03/02/2020 8:52 AM EST documented as of this encounter Last Filed Vital Signs Vital Sign Reading Time Taken Comments Blood Pressure 119/75 03/02/2020 9:01 AM EST Pulse 88 03/02/2020 9:01 AM EST Temperature 36 ??C (96.8 ??F) 03/02/2020 9:01 AM EST Respiratory Rate - - Oxygen Saturation 99% 03/02/2020 9:01 AM EST Inhaled Oxygen Concentration - - Weight 60.7 kg (133 lb 12.8 oz) 03/02/2020 9:01 AM EST Height - - Body Mass Index 23.71 02/06/2020 8:45 AM EST documented in this encounter Progress Notes * Ricci Carter MD - 03/02/2020 9:05 AM EST Images from the original note were not included. Medical Oncology/Hematology Progress Note Healthcare Team: CATHI Palacios Subjective: Date of visit is: March 02, 2020 Rody Sotelo is a 49 y.o. female who presents here today for a follow- up visit regarding carcinoid. ONCOLOGY HISTORY: - December 16, 2019, colonoscopy was normal. Interim History: She feels well except for some back and shoulder discomfort. Taking IBU with some effect. She is tolerating Sandostatin LAR (40 mg) well. Her last injection was administered on 02/06/2020. Diarrhea remains the same. No cramping. Has not required any short acting octreotide injections. 4-5 stools per day, unformed. She had a negative COVID test on 02/08/2020. Occasional palpitations are improving. Has not seen cardiology. Still taking colestipol BID with good effect. Still taking taking Kytril and Creon, as well as loperamide, 6-8 tabs/day. Denies flushing. Pain: 0 REVIEW OF SYSTEMS: [...] Disp: 120 tablet, Rfl: 5 ??? CREON [address] Particles capsule, 36,000 Units [...] 5 ML PO Q 6 H PRF DH, Disp: , Rfl: ??? Multiple Vitamin tablet, [...] Disp: 90 mL, Rfl: 11 ??? rizatriptan (MAXALT-BILINGUAL INTERPRETER) 10 MG disintegrating tablet, DISSOLVE ONE TABLET [...] Objective: Wt Readings from Last 2 Encounters: 03/02/20 60.7 kg (133 lb 12.8 oz) 02/06/20 61.7 kg (136 lb) . Physical Exam Vitals: 03/02/20 0901 BP: 119/75 BP Location: Right arm Pulse: 88 Temp: 96.8 ??F (36 ??C) TempSrc: Skin SpO2: 99% Weight: 60.7 kg (133 lb 12.8 oz) Performance status: ECOG (0) [...] normal. Judgment and thought contentnormal. Results: - February 06, 2020 WBC 6800, hemoglobin 12.2, MCV 93, platelets 189,000, ANC 3300 TSH 2.64 B12 (404) Creatinine 0.65, calcium 9.3 AST/ALT normal, total bilirubin 0.4 Serotonin not performed Chromogranin A 133 Assessment/Plan: 1. Carcinoid, [id number] A. Diagnosed July 11, 2013 1. S/p [...] follow- up visit regarding carcinoid. Rody remains stable from her carcinoid. Her stools remain at baseline. She reports improvement withcolestipol. She presents today without any new symptoms. Continue Sandostatin LAR (40 mg). She will receive her dose today, as she was not able to receive her planned February 27, 2020 treatment. She has not required any short acting octreotide as breakthrough. There are no new oncologic concerns by history or exam. I reviewed labs with Rody today. Continue Sandostatin LAR 40 mg every 3 weeks, granisetron, colestipol and as needed loperamide. 2. Use of medical marijuana She will continue medical marijuana, which she is tolerating well and with good effect and managingher diarrhea. 3. Palpitations Improving. She had to reschedule her cardiology appointment. No orders of the defined types were placed in this encounter. The patient will return in 6 weeks. There are no Patient Instructions on file for this visit. documented in this encounter Plan of Treatment Upcoming Encounters Date Type Department Care Team (Late st Contact Info) Description 11/13/2023 7:45 AM EDT Office Visit [facility] Medical Oncology at [address] [phone] Ricci Carter MD [address] [place] [address] 11/13/2023 8:30 AM EDT Infusion [facility] [place] at [facility] Outpatient Infusion Center [address] [phone] Ricci Carter MD [address] [place] [address] Keiko Hallman MD 80 [facility] [place] [address] 11/20/2023 11:00 AM EDT Appointment [facility] Radiology [place] [facility] [address] [place] [phone] Ricci Carter MD [address] [place] [phone] 11/20/2023 11:30 AM EDT Appointment [facility] Radiology [place] [facility] [address] [place] [phone] Ricci Carter MD [address] [place] [phone] 03/05/2024 11:00 AM EST Consult [facility] Cardiology [address] [place] [phone] Ricci Carter MD [address] [place] [address] Jamil Ralph MD [address] [place] [facility] [address] [place] [address] 05/30/2024 9:00 AM EST Office Visit [facility] Department of Internal Medicine [facility][Note 3] 1210 [facility] [address] [place] [address] Consuelo Hobbs PA-C [address] [address] documented as of this encounter Visit Diagnoses Diagnosis Carcinoid tumor of ileum (HCC)- Primary Diarrhea Encounter for monitoring octreotide therapy Oncology follow-up encounter Palpitations documented in this encounter Care Teams Corset Maker Relationship Specialty Start Date End Date Consuelo Hobbs PA-C [address] [address] PCP - General 1/29/20 Madi Sharp MD [address] [place] [address] Gastroenterology 10/02/19 documented as of this encounter
--- OUTSIDE RECORDS SUMMARY | 2023-10-29 17:50 | XMS_ITS | Encounter Summary ---
Author Organization [facility] Address [address] [place] [address] Care Team Providers Care Database Manager Name Role Phone Consuelo Hobbs PA-C Primary Care Provider Madi [place] MD Unavailable [phone] Encounter Details Date Type Department Care Team (Late st Contact Info) Description 05/26/2020 Orders Only [facility] [place] Medical Oncology at [address] [phone] Provider, Dodie, [address] [place] [address] Social History Tobacco Use Types Packs/Day Years [...] have Coronavirus / COVID-19? No / Unsure 2020 8:51 AM EST documented as of this encounter Plan of Treatment Upcoming Encounters Date Type Department Care Team (Late st Contact Info) Description 11/13/2023 7:45 AM EDT Office Visit [facility] Medical Oncology at [address] [phone] Ricci Carter MD [address] [place], [place] [phone] 11/13/2023 8:30 AM EDT Infusion [facility] [place] at [facility] Outpatient Infusion Center [address] [phone] Ricci Carter MD [address] [place], [place] [phone] Keiko Hallman MD 80 [facility] [place] [address] 11/20/2023 11:00 AM EDT Appointment [facility] Radiology [place] [facility] [address] [place] [phone] Ricci Carter MD [address] [place], [place] [phone] 11/20/2023 11:30 AM EDT Appointment [facility] Radiology [place] [facility] [address] [place] [phone] Ricci Carter MD [address] [place], [place] [phone] 03/05/2024 11:00 AM EST Consult [facility] Cardiology [address] [place] [phone] Ricci Carter MD [address] [place] [address] Jamil Ralph MD [address] [facility] [address] [place] [address] 05/30/2024 9:00 AM EST Office Visit [facility] Department of Internal Medicine [facility][Note 3] 1210 [facility] [address] [place] [address] Consuelo Hobbs PA-C 12[address] [place] [address] documented as of this encounter Procedures Procedure Name Priority Date/Time Associated Diagnosis Comments LAB RESULT Routine 05/20/2020 documented in this encounter Results * LAB RESULT (05/20/2020) External Provider MD MARIE AMB PROCEDURES documented in this encounter Visit Diagnoses Not on filedocumented in this encounter Care Teams Database Manager Relationship Specialty Start Date End Date Consuelo Hobbs PA-C [address] [place] [address] PCP - General 05/01/19 Madi Sharp MD [address] [place] [address] [address] [phone] Gastroenterology 10/02/19 documented as of this encounter
--- OUTSIDE RECORDS SUMMARY | 2023-10-29 17:50 | XMS_ITS | Encounter Summary ---
Author Organization [facility] Address [address] [place] [address] Care Team Providers Care Leather Products Supervisor Name Role Phone Consuelo Hobbs PA-C Primary Care Provider Madi Sharp MD Unavailable [phone] Encounter Details Date Type Department Care Team (Late st Contact Info) Description 06/24/2020 Scanned Document [facility] [place] Medical Oncology at [address] [phone] Provider, Dodie, [address] [place] [address] Social History Tobacco Use Types Packs/Day Years [...] 11/13/2023 7:45 AM EDT Office Visit [facility] Medical Oncology at [address] [phone] Ricci Carter MD [address], [place] [phone] 11/13/2023 8:30 AM EDT Infusion [facility] [place] at [facility] Outpatient Infusion Center [address] [phone] Ricci Carter MD [address] [place], [place] [phone] Keiko Hallman MD 80 [facility] [place] [address] 11/20/2023 11:00 AM EDT Appointment [facility] Radiology [place] [facility] [address] [place] [phone] Ricci Carter MD [address] [place], [place] [phone] 11/20/2023 11:30 AM EDT Appointment [facility] Radiology [place] [facility] [address] [place] [phone] Ricci Carter MD [address] [place], [place] [phone] 03/05/2024 11:00 AM EST Consult [facility] Cardiology [address] [place] [phone] Ricci Carter MD [address] [place] [address] Jamil Ralph MD [address] [facility] [address] [place] [address] 05/30/2024 9:00 AM EST Office Visit [facility] Department of Internal Medicine [facility] [address]10 [facility] [address] [place] [address] Consuelo Hobbs PA-C 1210 [facility] 109 [place] [address] documented as of this encounter Visit Diagnoses Not on filedocumented in this encounter Care Teams Leather Products Supervisor Relationship Specialty Start Date End Date Consuelo Hobbs PA-C [address] [place] [address] [address] [place] [address] PCP - General 05/01/19 Madi Sharp MD [address] [place] [phone] Gastroenterology 10/02/19 documented as of this encounter
--- OUTSIDE RECORDS SUMMARY | 2023-10-29 17:50 | XMS_ITS | Encounter Summary ---
Author Organization [facility] Address [address] [place] [address] Care Team Providers Care Accounts Payable Bookkeeper Name Role Phone Consuelo Hobbs PA-C Primary Care Provider Madi Sharp MD Unavailable [phone] Reason for Visit * Reason Comments Covid-19 Pre-screening pre-surgical rapi d test Encounter Details Date Type Department Care Team (Late st Contact Info) Description 2020 9:30 AM EST Office Visit [address] [phone] Den Hansen MD [address] [place] [address] Ale Logan PA [address] [place] [address] Contact with and (suspected) exposure to covid-19 (Primary Dx) Social History Tobacco Use Types [...] Sign Reading Time Taken Comments Blood Pressure 116/81 2020 8:54 AM EST Pulse 100 2020 8:54 AM EST Temperature 36.6 ??C (97.9 ??F) 2020 8:54 AM ES T Respiratory Rate - - Oxygen Saturation 99% 2020 8:54 AM EST Inhaled Oxygen Concentration - - Weight 59.4 kg (131 lb) 2020 8:54 AM EST Height 160 cm (5' 3) 2020 8:54 AM EST Body Mass Index 23.21 2020 8:54 AM EST documented in this encounter Progress Notes * CATHI Keene - 2020 10:35 AM EST Assessment & Plan Rody was seen today for covid-19 pre-screening. Diagnoses and all orders for this visit: Contact with and (suspected) exposure to covid-19 - POCT Rapid/ Molecular COVID-19 Medical Decision Making and Data Synthesis: Results for orders placed or performed in visit on 05/31/20 POCT Rapid/ Molecular COVID-19 Result Value Ref Range Rapid/ Molecular COVID-19 Negative Negative The patient presents today for COVID-19 testing. The patient meets the qualifications for testing at this time. Patient is aware of the limitations of current testing and expected time frame to receive results. Advised the patient on continued precautions and prevention of COVID-19. Discussed guidelines for Quarantine based on current CDC recommendations and based patient exposure. Communication barriers and lifestyle preferences were addressed with the patient and/or family . The care plan including medications and self-management goals were reviewed to the best of the Patientand/or family's ability. All questions and concerns were answered. Patient and/or family verbalizedunderstanding of the plan of care. Subjective Rody Sotelo is a 50 y.o. female HPI Chief Complaint: Request for COVID-19 swab testing after presumed exposure to COVID-19 during pandemic. Location: N/A Duration: N/A Context: She has not had any known exposure to anyone with COVID-19. She has not had symptoms of COVID-19. Severity: N/A The patient presents today for COVID-19 swab testing only. The patient has not had a positive test for COVID-19. Patient is asymptomatic and denies experiencing new or worsening symptoms of COVID-19. Other Pertinent History: Pt with endoscopy scheduled for this week. Requires Rapid Test Sick contacts: none Travel history: Patient denies recent travel. Review of Systems: Constitutional: Negative for fever, chills, and lethargy. HEENT: Negative for sore throat, nasal congestion, rhinorrhea, and sneezing. Negative for loss of taste and smell. Respiratory: Negative for cough and shortness of breath. Cardiovascular: Negative for chest pain and palpitations. Gastrointestinal: Negative for abdominal pain, nausea, vomiting, and diarrhea. Musculoskeletal: Negative for myalgias and neck stiffness. Skin: Negative for rash. Neurological: Negative for headaches, dizziness, and lightheadedness. Negative for slurred speech and seizures. Past Medical History: Diagnosis Date ??? Cancer (HCC) ??? IBS (irritable bowel syndrome) ??? Migraine 11/25/2019 ??? Migraines ??? PCOS (polycystic ovarian syndrome) 11/25/2019 ??? PVC (premature ventricular contraction) 11/25/2019 Past Surgical History: Procedure Laterality Date ??? HEMICOLECTOMY Right ??? TONSILECTOMY, ADENOIDECTOMY, BILATERAL MYRINGOTOMY AND TUBES Social History Tobacco Use ??? Smoking status: Current Every Day Smoker ??? Smokeless tobacco: Never Used ??? Tobacco comment: Patient will continue to ration down the number of cigarettes consumed daily. No objection to nicotine replacement but it seems unlikely to be needed Substance Use Topics ??? Alcohol use: Yes Alcohol/week: 2.0 standard drinks Types: 2 Glasses of wine per week ??? Drug use: Not on file Family History Problem Relation Age of Onset ??? Heart disease Father ??? Hypertension Father ??? Alcohol abuse Father ??? Mental illness Father ??? Heart attack Father ??? Hypertension Mother ??? Irritable bowel syndrome Mother ??? Mental illness Mother ??? Hypertension Brother ??? Mental illness Maternal Aunt ??? Tuberculosis Maternal Grandfather Objective Vitals: 05/31/20 0854 BP: 116/81 Pulse: 100 Temp: 97.9 ??F (36.6 ??C) SpO2: 99% Weight: 59.4 kg (131 lb) Height: 1.6 m (5' 3) Physical Exam: Constitutional: Well-appearing, in no apparent respiratory distress. Does not appear toxic. Eyes: Conjunctivae clear. No icterus. Ear, Nose, Mouth, Throat: Normal voice. Patient remained masked throughout the duration of the exam, given current COVID-19 outbreak. Neck: Supple. Moving with ease. Respiratory: No obvious respiratory distress. Speaking in full and complete sentences. Musculoskeletal: Moving all extremities with ease. Skin: Normal for age and race. No acute rash on visible skin. Neurologic: Alert and appropriate, no apparent acute deficits. Psychiatric: Mood and manner are appropriate. CATHI Keene 05/31/20 10:48 AM documented in this encounter Plan of Treatment Upcoming Encounters Date Type Department Care Team (Late st Contact Info) Description 11/13/2023 7:45 AM EDT Office Visit [facility] Medical Oncology at [address] [phone] Ricci Carter MD [address] [place] [address] 11/13/2023 8:30 AM EDT Infusion [facility] [place] at [facility] Outpatient Infusion Center [address] [phone] Ricci Carter MD [address] [place] [address] Keiko Hallman MD 80 [facility] [place] [address] 11/20/2023 11:00 AM EDT Appointment [facility] Radiology [place] [facility] [address] [place] [phone] Ricci Carter MD [address] [place], [place] [phone] 11/20/2023 11:30 AM EDT Appointment [facility] Radiology [place] [facility] [address] [place] [phone] Ricci Carter MD [address] [place], [place] [phone] 03/05/2024 11:00 AM EST Consult [facility] Cardiology [address] [place] [phone] Ricci Carter MD [address] [place], [place] [phone] Jamil Ralph MD [address] [facility] [address] [place] [address] 05/30/2024 9:00 AM EST Office Visit [facility] Department of Internal Medicine [facility] 1210 [facility] [address] [place], [place] [phone] Consuelo Hobbs PA-C 1210 [facility] [address] [place], [place] [phone] documented as of this encounter Procedures Procedure Name Priority Date/Time Associated Diagnosis Comments POCT RAPID/MOLECULAR COVID-19 NAAT Routine 2020 9:13 AM EST Contact with and (suspected) exposure to covid-19 documented in this encounter Results * POCT Rapid/ Molecular COVID-19 (2020 9:13 AM EST) Rapid/ Molecular COVID-19 Negative Negative Nasopharyngeal 2020 9: 13 AM EST Ale WINKLER POINT OF CARE TEST O RDERABLES documented in this encounter Visit Diagnoses Diagnosis Contact with and (suspected) exposure to covid-19- Primary documented in this encounter Care Teams Accounts Payable Bookkeeper Relationship Specialty Start Date End Date Consuelo Hobbs PA-C [address] [place] [address] PCP - General 05/01/19 Madi Sharp MD [address] [place] [address] Gastroenterology 10/02/19 documented as of this encounter
--- OUTSIDE RECORDS SUMMARY | 2023-10-29 17:50 | XMS_ITS | Encounter Summary ---
Author Organization [facility] Address [address] [place] [address] Care Team Providers Care Implementation Manager Name Role Phone Consuelo Hobbs PA-C Primary Care Provider Madi Sharp MD Unavailable [phone] Encounter Details Date Type Department Care Team ([facility] st Contact Info) Description 03/30/2020 4:00 PM EST Consult [facility] [place] [address] [phone] Shan Alexandre MD [address] [place] [address] [address] [place] [address] Encounter for consultation (Primary Dx); Heart palpitations; Shortness of breath; Malignant carcinoid tumor of ileum (HCC) Social History Tobacco Use Types Packs/Day Years Used Date Smoking Tobacco: Every Day Smokeless Tobacco: Never Tobacco Cessation:Ready to Q uit: Yes; Counseling Given: Yes Comments:Patient will continue to ration down the number [...] Sign Reading Time Taken Comments Blood Pressure 124/72 03/30/2020 4:00 PM EST Pulse 87 03/30/2020 4:00 PM EST Temperature - - Respiratory Rate - - Oxygen Saturation - - Inhaled Oxygen Concentration - - Weight 59.4 kg (131 lb) 03/30/2020 4:00 PM EST Height 160 cm (5' 3) 03/30/2020 4:00 PM EST Body Mass Index 23.21 03/30/2020 4:00 PM EST documented in this encounter Patient Instructions * Patient Instructions* Shan Alexandre MD - 03/30/2020 4:30 PM EST Improve efforts at regular aerobic exercise daily Limit caffeine in the diet Stop smoking entirely Echo in Apr 2020 Call if new cardiac symptomatology Follow-up in office as needed documented in this encounter Progress Notes * Shan Alexandre MD - 03/30/2020 4:43 PM EST Patient: Rody Sotelo Date of : 1970 Age: 49 y.o. 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 Unfortunately this is wrapped around several vessels in the aorta so it is not resectable. She receives injection therapy every few weeks to keep the tumor process in check. Thus far, patient has been doing well over the past7 years in maintenance therapy as the tumor is slow-growing even though it is malignant. Interesting that despite her diagnosis she continues to smoke 3-5 cigarettes most days. We talked about the dichotomy involved and she agrees to improve efforts to get off of cigarettes entirely Rody has a longstanding history of intermittent palpitations. In the summer there was a distinct increase in her level of fluttering. However symptoms seem to last several seconds and resolve. In the past she was maintained on atenolol therapy many years ago but this was stopped for unclear reasons. By description the palpitations sound like isolated PACs or PVCs. There is no associated lightheadedness or syncope. Reportedly lab work showed stable thyroid function and basic electrolytes. However I could not find a magnesium level which is important because she has chronic diarrhea in relation to the treatment and involvement of her carcinoid tumor. I am not sure if the carcinoid tumor is producing any vasoactive hormones as well such as serotonin etc. This would also play a role in the alteration of her rhythm On clinical grounds she drinks at least 3-4 cups of coffee most days. We talked about slowly weaning down to a maximum of 1 cup a day. Although she hikes intermittently, she is not dedicated to regular exercise. We talked about the importance of aerobic activity which would help to train the sinus rhythm and subsequently suppress ectopic foci if present. She sleeps extremely poorly at night but this is been a chronic problem for decades. No true sleep apnea. She has not had any signs or symptoms to suggest right heart failure Echo study will be arranged in the near future to evaluate LV function, valvular status and make sure that there is no pericardial involvement with the carcinoid process. Generally, carcinoid tumors metastasize locally and to the liver with somewhat limited cardiac involvement. If her echo study does show normal LV systolic function then we can decide whether Holter monitoring is necessary before starting any type of treatment. I have no objection to using low-dose beta-hugh again which I have reassured her is probably the safest treatment available. I would asked thatwe evaluate a magnesium level to make sure that this is not low especially with her diarrhea. Unfortunately, treatment of low magnesium may be difficult because of her GI symptomatology and she may wind up needing intermittent infusion therapy rather than taking oral magnesium supplement which can worsen diarrhea Hopefully with simple measures and lifestyle change will be able to improve her overall status Medications: Current Outpatient Medications Medication Sig Note Dispense Refill ??? calcium carbonate (OS-ANGELICA) 600 MG tablet Take 600 mg by mouth every morning with breakfast. ??? Cannabis (MARIJUANA) [facility] Prescription Strength as needed. ??? colestipol (COLESTID) 1 g tablet Take 2 tablets (2 g total) by mouth 2 (two) times a day. With a large glass of water. 120 tablet 5 ??? CREON [address] Particles capsule 36,000 Units 3 (three) times a day with meals. 08/14/2015: Received from: External Pharmacy ??? cyclobenzaprine (FLEXERIL) 10 MG tablet Take 10 mg by mouth 3 times daily (every 8 hours) as needed for muscle spasms. ??? ergotamine-caffeine (CAFERGOT) 1-100 MG per tablet TAKE 1 TABLET BY MOUTH TWICE DAILY [id number] tablet 3 ??? famotidine (PEPCID) 40 MG tablet Take 40 mg by mouth 2 (two) times a day. ??? granisetron (KYTRIL) 1 MG tablet Take 1 tablet (1 mg total) by mouth daily. 30 tablet 5 ??? loperamide (IMODIUM A-D) 2 MG capsule Take 2 mg by mouth 4 (four) times a day as needed for diarrhea. ??? morphine (ROXANOL) 10 mg/5 mL solution TK 2.5 TO 5 ML PO Q 6 H PRF DH ??? Multiple Vitamin tablet Take 1 tablet by mouth daily. ??? octreotide (SandoSTATIN LAR) 10 MG IM injection Inject 10 mg into the shoulder, thigh, or buttocks every 28 days (4 weeks). ??? rizatriptan (MAXALT-EVP) 10 MG disintegrating tablet DISSOLVE ONE TABLET BY MOUTH EVERY DAY NEEDED 9 tablet 0 ??? Vitamin D3 (CHOLECALICEROL) 50 MCG (2000 UT) tablet Take 2,000 Units by mouth daily. ??? octreotide (SandoSTATIN) 100 MCG/ML injection Inject 1 mL (100 mcg total) under the skin 3 times daily (every 8 hours) as needed (diarrhea, flushing). 90 mL 11 Past Medical/Surgical History: Past Medical History: Diagnosis Date ??? Cancer (HCC) ??? IBS (irritable bowel syndrome) ??? Migraine 11/25/2019 ??? Migraines ??? PCOS (polycystic ovarian syndrome) 11/25/2019 ??? PVC (premature ventricular contraction) 11/25/2019 Past Surgical History: Procedure Laterality Date ??? HEMICOLECTOMY Right ??? TONSILECTOMY, ADENOIDECTOMY, BILATERAL MYRINGOTOMY AND TUBES Detailed history: Problem List: 2020-03: Shortness of breath 2020-01: Needs flu shot 2020-01: Medical marijuana use 2019-11: Oncology follow-up encounter 2019-11: Encounter for monitoring octreotide therapy 2019-11: Migraine 2019-11: PCOS (polycystic ovarian syndrome) 2019-11: PVC (premature ventricular contraction) 2019-11: Diarrhea 2019-11: Prescription refill 2019-11: Encounter for consultation 2019-11: Heart palpitations 2015-08: Abdominal wall pain in right flank 2015-08: Carcinoid tumor of ileum Social History: Works as a [employer]. Lives at home with her . Social History Tobacco Use ??? Smoking status: [...] week ??? Drug use: Not on file Marital Status: Family History: Family History Problem Relation Age of Onset ??? Heart disease Father ??? Hypertension Father ??? Alcohol abuse Father ??? Mental illness Father ??? Heart attack Father ??? Hypertension Mother ??? Irritable bowel syndrome Mother ??? Mental illness Mother ??? Hypertension Brother ??? Mental illness Maternal Aunt ??? Tuberculosis Maternal Grandfather Review of Systems: Review of Systems Constitutional: Positive for fatigue (Intermittent insomnia). Eyes: Positive for visual disturbance. Cardiovascular: Positive for palpitations. Gastrointestinal: Positive for abdominal distention, abdominal pain, diarrhea and nausea. Musculoskeletal: Positive for arthralgias, back pain and joint swelling. Neurological: Positive for headaches. Objective BP 124/72 Pulse 87 Ht 1.6 m (5' 3) Wt 59.4 kg (131 lb) BMI 23.21 kg/m?? Physical Exam Constitutional: General: She is not in acute distress. Appearance: Normal appearance. Comments: Intelligent. Breathing comfortable with mask HENT: Head: Normocephalic. Comments: No facial asymmetry Eyes: Conjunctiva/sclera: Conjunctivae normal. Pupils: Pupils are equal, round, and reactive to light. Neck: Musculoskeletal: Neck supple. Thyroid: No thyromegaly. Vascular: No carotid bruit. Comments: Jugular venous pulsation seems normal Cardiovascular: Rate and Rhythm: Normal rate and regular rhythm. Chest Wall: PMI is not displaced. Pulses: Normal pulses. Heart sounds: S1 normal and S2 normal. No gallop. Comments: Completely regular rhythm on prolonged auscultation. No obvious murmur Pulmonary: Effort: No respiratory distress. Breath sounds: Normal breath sounds. Comments: Good air movement. Lung chaidez clear bilateral. No obvious rales or wheezes Abdominal: General: Bowel sounds are normal. Palpations: Abdomen is soft. There is no hepatomegaly. Tenderness: There is no abdominal tenderness. Comments: Liver span seems normal. No ascites Musculoskeletal: Comments: No peripheral edema distal pulses normal Skin: General: Skin is warm and dry. Findings: No ecchymosis. Neurological: Mental Status: She is alert and oriented to person, place, and time. Cranial Nerves: No cranial nerve deficit. Sensory: No sensory deficit. Comments: No focal motor or sensory deficits Psychiatric: Speech: Speech normal. Behavior: Behavior is cooperative. Tests: Laboratory Studies: Lab work is followed by her primary care team and oncology Electrocardiogram: Sinus rhythm. Left atrial abnormality. Otherwise within normal limits Assessment & Plan Diagnoses and all orders for this visit: Encounter for consultation - ECG 12 lead Heart palpitations - Echocardiogram Comprehensive; Future Shortness of breath Malignant carcinoid tumor of ileum (HCC) Other orders - ECG 12 lead Discussed: Rody Sotelo was seen in cardiovascular consultation in the [place] office. She has been having intermittent palpitations for several years. However in the summer and early fall 2019, her symptoms seem to escalate. By description they sound like isolated ectopic beats such as PACs or PVCs. Symptoms only lasts seconds and are not associated by lightheadedness or syncope. I have asked her to cut back on caffeine intake which I think is clearly a contributing factor. She will be more diligent with regular exercise using a stationary bike during the day in addition to her activity at work. Thismay help her circadian rhythm and overall sleep pattern which is another factor involved with the pa lpitations. Echo study will be arranged in the near future to make sure that her overall cardiac architecture and function are normal. Although she was concerned about carcinoid involvement with the heart, this is extremely rare. I am not sure however whether this is a actively secreting neuroendocrine tumor. Certainly increased serotonin and other hormone levels can cause palpitations independently. We willmake sure that there is no pericardial effusion or evidence of pericardial studding. If her echo study shows normal LV systolic function as anticipated, Rody understands that we would mainly be controlling symptoms with the use of medications. Again I do think that low-dose beta-hugh (metoprolol succinate would be the choice) are safe to use long-term. Holter monitoring will be a rranged to get a baseline assessment of the ectopy. I am concerned that fluctuation in magnesium level may play a role but Reza understands that this could be difficult to treat because of her profound diarrhea with GI symptomatology from treatment of the carcinoid tumor. I tried to reassure her that we were not dealing with any serious or dangerous cardiac arrhythmia. I do think that lifestyle change with limitation of caffeine, elimination of smoking and exercising will help control her symptoms. She will then decide whether a trial of low-dose beta-hugh would be beneficial Certainly treatment of her carcinoid tumor etc is a higher priority. I invited her to call me if there is worsening symptomatology or issues. I am happy to see her as needed in the future. . Counseling/Education: Patient Instructions Improve efforts at regular aerobic exercise daily Limit caffeine in the diet Stop smoking entirely Echo in Apr 2020 Call if new cardiac symptomatology Follow-up in office as needed documented in this encounter Plan of Treatment Upcoming Encounters Date Type Department Care Team (Late st Contact Info) Description 11/13/2023 7:45 AM EDT Office Visit [facility] Medical Oncology at [address] [phone] Ricci Carter MD [address] [place] [address] 11/13/2023 8:30 AM EDT Infusion [facility] [place] at [facility] [address] [phone] Ricci Carter MD [address] [place] [address] Keiko Hallman MD 80 [facility] [place] [address] 11/20/2023 11:00 AM EDT Appointment [facility] Radiology [place] [facility] [address] [place] [phone] Ricci Carter MD [address] [place] [address] 11/20/2023 11:30 AM EDT Appointment [facility] Radiology [address] [phone] Ricci Carter MD [address] [place] [address] 03/05/2024 11:00 AM EST Consult [facility] Cardiology [address] [place] [phone] Ricci Carter MD [address] [place] [address] Jamil Ralph MD [address] [facility] [address] [place] [address] 05/30/2024 9:00 AM EST Office Visit [facility] Department of Internal Medicine [facility] [place] [address] [facility] [address] [place] [phone] Cosnuelo Hobbs PA-C 1210 [facility] [address] [place], [place] [id number] Scheduled Orders Name Type Priority Associated Diagnoses Orde r Schedule ECG 12 lead ECG Routine Heart palpitations Ordered: 03/30/2020 documented as of this encounter Procedures Procedure Name Priority Date/Time Associated Diagnosis Comments ECG 12-LEAD Routine 03/30/2020 4:06 PM EST Heart palpitations documented in this encounter Results * ECG 12 lead (03/30/2020 4:06 PM EST) 03/30/2020 4:06 PM EST Narrative EKG [facility] - 03/30/2020 4:26 PM EST Diagnosis Class Borderline Abnormal Ventricular Rate 87 BPM Atrial Rate 87 BPM P-R Interval 144 ms QRS Duration 92 ms Q-T Interval 374 ms QTC Calculation(Bazett) 450 ms P [place] 72 degrees R [place] 18 degrees T [place] 38 degrees Normal sinus rhythm Possible Left atrial enlargement Borderline ECG No previous ECGs available Confirmed by MD Alexandre Joseph ([id number]) on 03/30/2020 4:26:03 PM Procedure Note Shan Alexandre MD - 03/30/2020 Diagnosis Class Borderline Abnormal Ventricular Rate 87 BPM Atrial Rate 87 BPM P-R Interval 144 ms QRS Duration 92 ms Q-T Interval 374 ms QTC Calculation(Bazett) 450 ms P [place] 72 degrees R [place] 18 degrees T [place] 38 degrees Normal sinus rhythm Possible Left atrial enlargement Borderline ECG No previous ECGs available Confirmed by MD Alexandre Joseph ([id number]) on 03/30/2020 4:26:03 PM Shan Alexandre MD ECG [facility] documented in this encounter Visit Diagnoses Diagnosis Encounter for consultation- Primary Heart palpitations Palpitations Shortness of breath Malignant carcinoid tumor of ileum (HCC) Malignant carcinoid tumor of the ileum documented in this encounter Care Teams Implementation Manager Relationship Specialty Start Date End Date Consuelo Hobbs PA-C 1210 [facility] [place] [address] [place] [address] PCP - General 05/01/19 Madi Sharp MD [address] [address] Gastroenterology 10/02/19 documented as of this encounter
--- OUTSIDE RECORDS SUMMARY | 2023-10-29 17:50 | XMS_ITS | Encounter Summary ---
Author Organization [facility] Address [address] [place] [address] Care Team Providers Care Nodulizer Name Role Phone Consuelo Hobbs PA-C Primary Care Provider Madi Sharp MD Unavailable [phone] Encounter Details Date Type Department Care Team ([facility] st Contact Info) Description 06/05/2020 Orders Only [facility] [place]: Oncology and Hematology [address] [place] [address] Ricci Carter MD [address] [place] [address] Social History Tobacco Use Types Packs/Day Years [...] Description 11/13/2023 7:45 AM EDT Office Visit [facility] Medical Oncology at [address] [phone] Ricci Carter MD [address] [place], [place] [phone] 11/13/2023 8:30 AM EDT Infusion [facility] [place] at [facility] [address] [phone] Ricci Carter MD [address] [place], [place] [phone] Keiko Hallman MD 80 [facility] [place] [address] 11/20/2023 11:00 AM EDT Appointment [facility] Radiology [place] [facility] [address] [place] [phone] Ricci Carter MD [address] [place], [place] [id number] 11/20/2023 11:30 AM EDT Appointment [facility] [place] [facility] [address] [place] [phone] Ricci Carter MD [address] [place], [place] [id number] 03/05/2024 11:00 AM EST Consult [facility] Cardiology [address] [place] [phone] Ricci Carter MD [address] [place] [address] Jamil Ralph MD [address] [address] [facility] [address] [place] [address] 05/30/2024 9:00 AM EST Office Visit [facility] Department of Internal Medicine [facility] 1210 [facility] [address] [place] [address] Consuelo Hobbs PA-C [address] [address] documented as of this encounter Visit Diagnoses Not on filedocumented in this encounter Care Teams Nodulizer Relationship Specialty Start Date End Date Consuelo Hobbs PA-C [address] [place] [address] PCP - General 05/01/19 Madi Sharp MD [address] [place] [address] Gastroenterology 10/02/19 documented as of this encounter
--- OUTSIDE RECORDS SUMMARY | 2023-10-29 17:50 | XMS_ITS | Encounter Summary ---
Author Organization [facility] Address [address] [place] [address] Care Team Providers Care Plumbing And Heating Mechanic Name Role Phone Consuelo Hobbs PA-C Primary Care Provider Madi Sharp MD Unavailable [phone] Reason for Visit * Episode Based Medications (Routine) - Authorized Specialty Diagnoses / Procedures Referred By Contac t Referred To Contact Diagnoses Carcinoid tumor of ileum, unspecified whether malignant (HCC) Keiko Hallman MD 80 [facility] [place] [address] Med On[address] [phone] Referral ID Status Reason Start Date Expiration Date V isits Requested Visits Authorized [id number] Authorized 04/29/2022 11/27/2023 5 2 Encounter Details Date Type Department Care Team (Late st Contact Info) Description 05/15/2020 8:15 AM EST Infusion [facility] [place] at [facility] Out[facility]fusion [facility] [address] [phone] Ricci Carter MD [address] [place] [address] Keiko Hallman MD 80 [facility] [place] [address] Carcinoid tumor of ileum, unspecified whether malignant [...] Sign Reading Time Taken Comments Blood Pressure 129/68 05/15/2020 8:33 AM EST Pulse 84 05/15/2020 8:33 AM EST Temperature 36.6 ??C (97.8 ??F) 05/15/2020 8:33 AM ES T Respiratory Rate 16 05/15/2020 8:33 AM EST Oxygen Saturation 100% 05/15/2020 8:33 AM EST Inhaled Oxygen Concentration - - Weight 60.3 kg (133 lb) 05/15/2020 8:33 AM EST Height - - Body Mass Index 23.56 03/30/2020 4:00 PM EST documented in this encounter Plan of Treatment Upcoming Encounters Date Type Department Care Team (Late st Contact Info) Description 11/13/2023 7:45 AM EDT Office Visit [facility] [place] Medical Oncology at [address] [phone] Ricci Carter MD [address] [place] [address] 11/13/2023 8:30 AM EDT Infusion [facility] [place] at [facility] Outpatient Infusion [facility] [address] [phone] Ricci Carter MD [address] [place], [place] [phone] Keiko Hallman MD 80 [facility] [place] [address] 11/20/2023 11:[address] [facility] Radiology [place] [facility] [address] [place] [phone] Ricci Carter MD [address] [place], [place] [phone] 11/20/2023 11:[address] [facility] Radiology [place] [facility] [address] [place] [phone] Ricci Carter MD [address] [place], [place] [phone] 03/05/2024 11:00 AM EST Consult [facility] Cardiology [address] [place] [phone] Ricci Carter MD [address] [place], [place] [phone] Jamil Ralph MD [address] [place] [facility] [address] [place], [place] [phone] 05/30/2024 9:00 AM EST Office Visit [facility] Department of Internal Medicine [address] [place] [address] Consuelo Hobbs PA-C [address] [address] documented as of this encounter Visit Diagnoses Diagnosis Carcinoid tumor of ileum, unspecified whether malignant (HCC)- Primary documented in this encounter Administered Medications Inactive Administered Medications - up to 1 most recent administrations Medication Order MAR Action Action Date Dose Rate Site octreotide (SandoSTATIN LAR) IM injection 40 mg 40 mg, Intramuscular, Once, On Mon05/15/20 at 0900, For 1 dose, Administer IM intragluteal (avoid deltoid administration). For intraMUSCULAR use ONLY. Must be administered immediately after mixing. Given 05/15/2020 8:44 AM EST 40 mg Left Gluteal Upper Outer Quadrant documented in this encounter Care Teams Plumbing And Heating Mechanic Relationship Specialty Start Date End Date Consuelo Hobbs PA-C [address] [place] [address] PCP - General 05/01/19 Madi Sharp MD [address] [place] [address] Gastroenterology 10/02/19 documented as of this encounter
--- OUTSIDE RECORDS SUMMARY | 2023-10-29 17:50 | XMS_ITS | Encounter Summary ---
Author Organization [facility] Address [address] [place] [address] Care Team Providers Care Motion Picture Commentator Name Role Phone Consuelo Hobbs PA-C Primary Care Provider Madi Sharp MD Unavailable [phone] Reason for Visit * Reason Comments Injections * Episode Based Medications (Routine) - Authorized Specialty Diagnoses / Procedures Referred By Contbalbir t Referred To Contact Diagnoses Carcinoid tumor of ileum, unspecified whether malignant (HCC) Keiko Hallman MD 80 [facility] [place] [address] [phone] Referral ID Status Reason Start Date Expiration Date V isits Requested Visits Authorized [id number] Authorized 04/29/2022 11/27/2023 5 2 Encounter Details Date Type Department Care Team (Late st Contact Info) Description 04/24/2020 8:15 AM EST Infusion [facility] [place] [facility]fusion Center [address] [phone] Ricci Carter MD [address] [place] [address] Keiko Hallman MD 80 [facility] [place] [address] Han Varner RN [address] [place] [address] Carcinoid tumor of ileum, unspecified whether malignant [...] have Coronavirus / COVID-19? No / Unsure 04/24/2020 8:03 AM EST documented as of this encounter Last Filed Vital Signs Vital Sign Reading Time Taken Comments Blood Pressure 142/79 04/24/2020 8:06 AM EST Pulse 87 04/24/2020 8:06 AM EST Temperature 36 ??C (96.8 ??F) 04/24/2020 8:06 AM EST Respiratory Rate 16 04/24/2020 8:06 AM EST Oxygen Saturation 100% 04/24/2020 8:06 AM EST Inhaled Oxygen Concentration - - Weight 61.7 kg (136 lb) 04/24/2020 8:06 AM EST Height - - Body Mass Index 24.09 03/30/2020 4:00 PM EST documented in this encounter Plan of Treatment Upcoming Encounters Date Type Department Care Team (Late st Contact Info) Description 11/13/2023 7:45 AM EDT Office Visit [facility] [place] [facility]cology at [address] [phone] Ricci Carter MD [address] [place] [address] 11/13/2023 8:30 AM EDT Infusion [facility]fusion [facility] [address] [phone] Ricci Carter MD [address] [place] [address] Keiko Hallman MD 80 [facility] [place] [address] 11/20/2023 11:00 AM EDT Appointment [facility] Radiology [facility] [address] [place] [phone] Ricci Carter MD [address] [place] [address] 11/20/2023 11:30 AM EDT Appointment [facility] Radiology [facility] [address] [place] [phone] Ricci Carter MD [address] [place] [address] 03/05/2024 11:00 AM EST Consult [facility] Cardiology [place] [address] [facility] [address] [place] [phone] Ricci Carter MD [address] [place] [address] Jamil Ralph MD [address] [facility] [address] [place], [place] [phone] 05/30/2024 9:00 AM EST Office Visit [facility] Department of Internal Medicine [facility] [address] [phone] Consuelo Hobbs PA-C [address] [address] documented as of this encounter Visit Diagnoses Diagnosis Carcinoid tumor of ileum, unspecified whether malignant (HCC)- Primary documented in this encounter Administered Medications Inactive Administered Medications - up to 1 most recent administrations Medication Order MAR Action Action Date Dose Rate Site octreotide (SandoSTATIN LAR) IM injection 40 mg 40 mg, Intramuscular, Once, On Mon04/24/20 at 0900, For 1 dose, Administer IM intragluteal (avoid deltoid administration). For intraMUSCULAR use ONLY. Must be administered immediately after mixing. Given 04/24/2020 8:19 AM EST 40 mg Other (See Comments) documented in this encounter Care Teams Motion Picture Commentator Relationship Specialty Start Date End Date Consuelo Hobbs PA-C [address] [phone] PCP - General 05/01/19 Madi Sharp MD [address] [place] [phone] Gastroenterology 10/02/19 documented as of this encounter
--- OUTSIDE RECORDS SUMMARY | 2023-10-29 17:50 | XMS_ITS | Encounter Summary ---
Author Organization [facility] Address [address] [place] [address] Care Team Providers Care Healthcare Account Manager Name Role Phone Consuelo Hobbs PA-C Primary Care Provider Madi Sharp MD Unavailable [phone] Encounter Details Date Type Department Care Team (Latest Contact Info) Description 2020 Travel Social History Tobacco Use Types Packs/Day [...] 7:45 AM EDT Office Visit [facility] [place] [facility] Oncology at [address] [phone] Ricci Carter MD [address] [place] [address] 11/13/2023 8:30 AM EDT Infusion [facility] [place] [facility]fusion Center [address] [phone] Ricci Carter MD [address] [place] [phone] Keiko Hallman MD 80 [facility] [place] [address] 11/20/2023 11:[address] [facility] Radiology [facility] [address] [place] [phone] Ricci Carter MD [address] [place] [phone] 11/20/2023 11:[address] [facility] Radiology [facility] [address] [place] [phone] Ricci Carter MD [address] [place] [phone] 03/05/2024 11:00 AM EST Consult [facility] Cardiology [address] [place] [phone] Ricci Carter MD [address] [place] [phone] Jamil Ralph MD [address] [place], [place] [phone] 05/30/2024 9:00 AM EST Office Visit [facility] Department of Internal Medicine [facility] [address] [phone] Consuelo Hobbs PA-C [address] [phone] documented as of this encounter Visit Diagnoses Not on filedocumented in this encounter Care Teams Healthcare Account Manager Relationship Specialty Start Date End Date Consuelo Hobbs PA-C [address] [place] [phone] PCP - General 05/01/19 Madi Sharp MD [address] [place] [address] Gastroenterology 10/02/19 documented as of this encounter
--- OUTSIDE RECORDS SUMMARY | 2023-10-29 17:50 | XMS_ITS | Encounter Summary ---
Author Organization [facility] Address [address] [place] [address] Care Team Providers Care Subway Conductor Name Role Phone Consuelo Hobbs PA-C Primary Care Provider Madi Sharp MD Unavailable [phone] Encounter Details Date Type Department Care Team (Latest Contact Info) Description 04/24/2020 Travel Social History Tobacco Use Types Packs/Day [...] Office Visit [facility] [place] [facility] On[facility] at [address] [phone] Ricci Carter MD [address] [place] [address] 11/13/2023 8:30 AM EDT Infusion [facility] [place] [facility] Outpatient Infusion Center [address] [phone] Ricci Carter MD [address] [place] [phone] Keiko Hallman MD 80 [facility] [place] [address] 11/20/2023 11:00 AM EDT Appointment [facility] Radiology [facility] [address] [place] [address] [phone] Ricci Carter MD [address] [place] [phone] 11/20/2023 11:30 AM EDT Appointment [facility] Radiology [facility] [address] [place] [phone] Ricci Carter MD [address] [place] [phone] 03/05/2024 11:00 AM EST Consult [facility] Cardiology [address] [place] [phone] Ricci Carter MD [address] [place] [phone] Jamil Ralph MD [address] [place], [place] [phone] 05/30/2024 9:00 AM EST Office Visit [facility] [address] [phone] Consuelo Hobbs PA-C [address] [phone] documented as of this encounter Visit Diagnoses Not on filedocumented in this encounter Care Teams Subway Conductor Relationship Specialty Start Date End Date Consuelo Hobbs PA-C [address] [place] [phone] PCP - General 05/01/19 Madi Sharp MD [address] [place] [address] Gastroenterology 10/02/19 documented as of this encounter
--- OUTSIDE RECORDS SUMMARY | 2023-10-29 17:50 | XMS_ITS | Encounter Summary ---
Author Organization [facility] Address [address] [place] [address] Care Team Providers Care Brand Specialist Name Role Phone Consuelo Hobbs PA-C Primary Care Provider Madi Sharp MD Unavailable [phone] Reason for Visit * Reason Comments Injections * Episode Based Medications (Routine) - Authorized Specialty Diagnoses / Procedures Referred By Contbalbir t Referred To Contact Diagnoses Carcinoid tumor of ileum, unspecified whether malignant (HCC) Keiko Hallman MD 80 [facility] [place] [address] [phone] Referral ID Status Reason Start Date Expiration Date V isits Requested Visits Authorized [id number] Authorized 04/29/2022 11/27/2023 5 2 Encounter Details Date Type Department Care Team (Late st Contact Info) Description 03/02/2020 10:00 AM EST Infusion [facility] [place] [facility] Outpatient Infusion Center [address] [phone] Ricci Carter MD [address] [place] [address] Keiko Hallman MD [address] [place] [address] Oncology [place] [phone] Cony Garduno, RN [address] [place] [address] Carcinoid tumor of ileum, unspecified whether malignant [...] [facility] at [address] [phone] Ricci Carter MD [address] [place] [address] 11/13/2023 8:30 AM EDT Infusion [facility] [place] [facility] Outpatient Infusion Center [address] [phone] Ricci Carter MD [address] [place] [address] Keiko Hallman MD [address] [place] [address] Oncology [place], [place] 11/20/2023 11:00 AM EDT Appointment [facility] Radiology [facility] [address] [place] [phone] Ricci Carter MD [address] [place], [place] [phone] 11/20/2023 11:30 AM EDT Appointment [facility] Radiology [facility] [address] [place] [phone] Ricci Carter MD [address] [place], [place] [phone] 03/05/2024 11:00 AM EST Consult [facility] Cardiology [address] [place] [phone] Ricci Carter MD [address] [place] [address] Jamil Ralph MD [address] [place] [facility] [address] [place] [address] 05/30/2024 9:00 AM EST Office Visit [facility] Department of Internal Medicine [facility] [place] 1210 [facility] [address] [place] [address] Consuelo Hobbs PA-C 1210 [facility] [address] [place], [place] [phone] documented as of this encounter Visit Diagnoses Diagnosis Carcinoid tumor of ileum, unspecified whether malignant (HCC)- Primary documented in this encounter Administered Medications Inactive Administered Medications - up to 1 most recent administrations Medication Order MAR Action Action Date Dose Rate Site octreotide (SandoSTATIN LAR) IM injection 40 mg 40 mg, Intramuscular, Once, On 03/02/20 at 1100, For 1 dose, Administer IM intragluteal (avoid deltoid administration). For intraMUSCULAR use ONLY. Must be administered immediately after mixing. Given 03/02/2020 10:27 AM EST 40 mg Left Gluteal Upper Outer Quadrant documented in this encounter Care Teams Brand Specialist Relationship Specialty Start Date End Date Consuelo Hobbs PA-C [address] [address] PCP - General 05/01/19 Madi Sharp MD [address] [address] Gastroenterology 10/02/19 documented as of this encounter
--- OUTSIDE RECORDS SUMMARY | 2023-10-29 17:50 | XMS_ITS | Encounter Summary ---
Author Organization [facility] Address [address] [place] [address] Care Team Providers Care Package Center Supervisor Name Role Phone Consuelo Hobbs PA-C Primary Care Provider Madi Sharp MD Unavailable [phone] Encounter Details Date Type Department Care Team ([facility] st Contact Info) Description 05/25/2020 9:45 AM EST Office Visit [facility] [place]: Oncology and Hematology [address] [phone] Rcici Carter MD [address] [place] [address] Carcinoid tumor of ileum (Primary Dx); Encounter for monitoring octreotide therapy; Oncology follow-up encounter; Heart palpitations; Abdominal pain Social History Tobacco Use Types Packs/Day Years [...] have Coronavirus / COVID-19? No / Unsure 05/25/2020 9:34 AM EST documented as of this encounter Last Filed Vital Signs Vital Sign Reading Time Taken Comments Blood Pressure 114/77 05/25/2020 9:35 AM EST Pulse 93 05/25/2020 9:35 AM EST Temperature 36.3 ??C (97.3 ??F) 05/25/2020 9:35 AM ES T Respiratory Rate - - Oxygen Saturation 99% 05/25/2020 9:35 AM EST Inhaled Oxygen Concentration - - Weight 59.4 kg (131 lb) 05/25/2020 9:35 AM EST Height - - Body Mass Index 23.21 05/22/2020 7:54 AM EST documented in this encounter Progress Notes * Ricci Carter MD - 05/25/2020 9:45 AM EST Images from the original note were not included. Medical Oncology/Hematology Progress Note Healthcare Team: CATHI Palacios Subjective: Date of visit is: May 25, 2020 Rody Sotelo is a 49 y.o. female who presents here today for a follow- up visit regarding carcinoid. ONCOLOGY HISTORY: - December 16, 2019, colonoscopy was normal. Interim History: She is receiving Sandostatin LAR. She received her last dose (40 mg) May 15, 2020. Three week ago, she presented to ED ([facility]) with abdominal pain. Had CT scan (she did not knowwhat it should). Treated with morphone and was told to fu with GI. On May 22, 2020, she was seen by GI for epigastric pain and recent NSAID use and history of peptic ulcer disease. There was concern for recurrent ulcer. There was partial improvement noted with PPI. It was recommended she continue omeprazole 20 mg once daily and add back famotidine 40 mg once daily. Sucralfate suspension also recommended and scheduling upper endoscopy. She is taking Sucralfate, and feels better. She is taking BID. She stopped taking NSAIDs. She reports improved abdominal pain. Only now random. She reports no nausea or vomiting. She reports no abdominal cramping. Diarrhea, 'the usual', 4-5 times per day. She is taking 12 mg loperamide per day. Also taking colestipol, Kytril. She has not required Morphine. She had not needed any recent octreotide. She has cut caffeine to 2 cups/day. She reports no flushing. She tested negative for COVID. Pain: 0 REVIEW OF SYSTEMS: Review of Systems Constitutional: Positive for fatigue. Negative for appetite change and unexpected weight change (lost 3 lbs). HENT: Negative for mouth sores and nosebleeds. Respiratory: Negative for cough, shortness of breath and wheezing. Cardiovascular: Negative for leg swelling and palpitations. Gastrointestinal: Negative for blood in stool and rectal pain. Genitourinary: Negative. Musculoskeletal: Negative for back pain. Skin: Negative for itching and rash. Neurological: Positive for headaches (migraines are the same). Negative for dizziness and light-headedness. Hematological: Does [...] Disp: 120 tablet, Rfl: 5 ??? CREON [address] Particles capsule, 36,000 Units [...] FOR NAUSEA, Disp: , Rfl: ??? rizatriptan (MAXALT-CHARACTER ACTRESS) 10 MG disintegrating tablet, DISSOLVE ONE TABLET [...] Objective: Wt Readings from Last 2 Encounters: 05/25/20 59.4 kg (131 lb) 05/22/20 60.8 kg (134 lb) . Physical Exam Vitals: 05/25/20 0935 BP: 114/77 BP Location: Right arm Pulse: 93 Temp: 97.3 ??F (36.3 ??C) TempSrc: Skin SpO2: 99% Weight: 59.4 kg (131 lb) Performance status: ECOG (0) Fully active, [...] is no abdominal tenderness. There is no rigidity, no rebound, no guarding and negative Henderson's sign. Musculoskeletal: Normal range of motion. Lymphadenopathy: Head [...] warm and dry. No rash noted. No cyanosis or erythema. No pallor. Nails show no clubbing. Psychiatric: She has a normal mood and affect. Her behavior is normal. Judgment and thought contentnormal. Results: Gastroenterology notes reviewed Assessment/Plan: 1. Carcinoid, [id number] A. Diagnosed July 11, 2013 1. S/p [...] regarding carcinoid. Rody returns here today for a routine follow-up visit for her carcinoid. She was seen in the [facility] ED about 3 weeks ago for abdominal pain. She tells me CAT scan was performed, but does not knowwhat the results revealed. She seems to be doing better now that she is no longer taking NSAIDs. Her abdominal pain has resolved. Her last NSAID use was about 4 weeks ago. She is scheduled for an upper endoscopy sometime next week given concern for recurrent NSAID induced ulcer. She is receiving Sandostatin LAR. She received her last dose (40 mg) May 15, 2020. She is tolerating Sandostatin well. She will continue omeprazole, famotidine and sucralfate. She remains clinically stable from her carcinoid. Her diarrhea persists, but is at baseline. I havenot sure she is optimizing her diet. She will continue loperamide, colestipol, and granisetron. Shewill also continue Creon with meals, and short acting octreotide and oral morphine as needed. No changes to treatment. She will receive Sandostain next week. Continue at present dose and interval. She had labs done last week through her PCP at time of annual CPE. Requested lab results. 2. Use of medical marijuana Continue medical marijuana. 3. Palpitations On March 30, 2020, she was seen by cardiology. (the above information is being carried forward from prior records for informational purposes only and is being cited so that efficiency, safety, and quality of this patients' oncologic/hematologic care is not compromised) Improved. She is in process of trying to schedule her ECHO and Holter. She did receive influenza vaccine 2019. I have discussed COVID-19 vaccination. I have recommended immunization once it becomes available toher. No orders of the defined types were placed in this encounter. The patient will return in 6 weeks. There are no Patient Instructions on file for this visit. documented in this encounter Plan of Treatment Upcoming Encounters Date Type Department Care Team (Late st Contact Info) Description 11/13/2023 7:45 AM EDT Office Visit [facility] Medical Oncology at [address] [phone] Ricci Carter MD [address] [place] [address] 11/13/2023 8:30 AM EDT Infusion [facility] [place] [facility] Outpatient Infusion Center [address] [phone] Ricci Carter MD [address] [place] [address] Keiko Hallman MD 80 [facility] [place] [address] 11/20/2023 11:00 AM EDT Appointment [facility] Radiology [address] [phone] Ricci Carter MD [address] [place], [place] [phone] 11/20/2023 11:30 AM EDT Appointment [facility] Radiology Shay Mammography [address] [place] [phone] Ricci Carter MD [address] [place] [address] 03/05/2024 11:00 AM EST Consult [facility] Cardiology [place] [address] [facility] [address] [place] [phone] Ricci Carter MD [address] [place] [place], [place] [phone] Jamil Ralph MD [address] [facility] [address] [place] [address] 05/30/2024 9:00 AM EST Office Visit [facility] Department of Internal Medicine [facility] [address] [address] Consuelo Hobbs PA-C [address] [address] documented as of this encounter Visit Diagnoses Diagnosis Carcinoid tumor of ileum (HCC)- Primary Encounter for monitoring octreotide therapy Oncology follow-up encounter Heart palpitations Palpitations Abdominal pain Abdominal pain, unspecified site documented in this encounter Care Teams Package Center Supervisor Relationship Specialty Start Date End Date Consuelo Hobbs PA-C [address] [address] PCP - General 05/01/19 Madi Sharp MD [address] [address] Gastroenterology 10/02/19 documented as of this encounter
--- OUTSIDE RECORDS SUMMARY | 2023-10-29 17:50 | XMS_ITS | Encounter Summary ---
Author Organization [facility] Address [address] [place] [address] Care Team Providers Care Shampoo Person Name Role Phone Consuelo Hobbs PA-C Primary Care Provider Madi Sharp MD Unavailable [phone] Reason for Visit * Episode Based Medications (Routine) - Authorized Specialty Diagnoses / Procedures Referred By Contac t Referred To Contact Diagnoses Carcinoid tumor of ileum, unspecified whether malignant (HCC) Keiko Hallman MD 80 [facility] [place] [address] Med On[address] [address] Referral ID Status Reason Start Date Expiration Date V isits Requested Visits Authorized [id number] Authorized 04/29/2022 11/27/2023 5 2 Encounter Details Date Type Department Care Team (Late st Contact Info) Description 01/16/2020 8:30 AM EDT Infusion [facility] Cancer [place] at [facility]fusion [facility] [address] [phone] Ricci Carter MD [address] [place] [address] Keiko Hallman MD 80 [facility] [place] [address] Sienna Alaniz RN 80 [place] [address] Carcinoid tumor of ileum, unspecified whether malignant [...] have Coronavirus / COVID-19? No / Unsure 01/16/2020 8:19 AM EDT documented as of this encounter Last Filed Vital Signs Vital Sign Reading Time Taken Comments Blood Pressure 130/75 01/16/2020 8:22 AM EDT Pulse 92 01/16/2020 8:22 AM EDT Temperature 36.4 ??C (97.5 ??F) 01/16/2020 8:22 AM ED T Respiratory Rate 16 01/16/2020 8:22 AM EDT Oxygen Saturation 100% 01/16/2020 8:22 AM EDT Inhaled Oxygen Concentration - - Weight 62.1 kg (137 lb) 01/16/2020 8:22 AM EDT Height 160 cm (5' 2.99) 01/16/2020 8:22 AM EDT Body Mass Index 24.27 01/16/2020 8:22 AM EDT documented in this encounter Plan of Treatment Upcoming Encounters Date Type Department Care Team (Late st Contact Info) Description 11/13/2023 7:45 AM EDT Office Visit [facility] Cancer [place] Medical Oncology at [address] [phone] Ricci Carter MD [address] [place] [address] 11/13/2023 8:30 AM EDT Infusion [facility] [place] [facility]fusion [facility] [address] [phone] Ricci Carter MD [address] [place] [address] Keiko Hallman MD 80 [facility] [place] [address] 11/20/2023 11:00 AM EDT Appointment [facility] Radiology [facility] [address] [place] [phone] Ricci Carter MD [address] [place] [address] 11/20/2023 11:30 AM EDT Appointment [facility] Radiology [place] [facility] 35 [place] [phone] Ricci Carter MD [address] [place] [address] 03/05/2024 11:00 AM EST Consult [facility] Cardiology [place] [address] [facility] [address] [place] [phone] Ricci Carter MD [address] [place], [place] [phone] Jamil Ralph MD [address] [facility] [address] [place] [address] 05/30/2024 9:00 AM EST Office Visit [facility] 1210 [facility] 109 [place], [place] [phone] Consuelo Hobbs PA-C [address] [phone] documented as of this encounter Visit Diagnoses Diagnosis Carcinoid tumor of ileum, unspecified whether malignant (HCC)- Primary documented in this encounter Administered Medications Inactive Administered Medications - up to 1 most recent administrations Medication Order MAR Action Action Date Dose Rate Site octreotide (SandoSTATIN LAR) IM injection 40 mg 40 mg, Intramuscular, Once, On Marcelle 01/16/20 at 0900, For 1 dose, Administer IM intragluteal (avoid deltoid administration). For intraMUSCULAR use ONLY. Must be administered immediately after mixing. Given 01/16/2020 8:30 AM EDT 40 mg Right Gluteal Upper Outer Quadrant documented in this encounter Care Teams Shampoo Person Relationship Specialty Start Date End Date Consuelo Hobbs PA-C [address] [phone] PCP - General 05/01/19 Madi Sharp MD [address] [place] [address] Gastroenterology 10/02/19 documented as of this encounter
--- OUTSIDE RECORDS SUMMARY | 2023-10-29 17:50 | XMS_ITS | Encounter Summary ---
Author Organization [facility] Address [address] [place] [address] Care Team Providers Care Ceramic Engineering Professor Name Role Phone Consuelo Hobbs PA-C Primary Care Provider Madi Sharp MD Unavailable [phone] Encounter Details Date Type Department Care Team (Latest Contact Info) Description 05/25/2020 Travel Social History Tobacco Use Types Packs/Day [...] [facility] [place] Medical Oncology at [address] [phone] Ricci Carter MD [address] [place] [address] 11/13/2023 8:30 AM EDT Infusion [facility] [place] at [facility] Outpatient Infusion Center [address] [phone] Ricci Carter MD [address] [place] [phone] Keiko Hallman MD 80 [facility] [place] [address] 11/20/2023 11:00 AM EDT Appointment [facility] Radiology [facility] [address] [place] [phone] Ricci Carter MD [address] [place] [id number] 11/20/2023 11:30 AM EDT Appointment [facility] Radiology [facility] 35 [place] [phone] Ricci Carter MD [address] [place] [phone] 03/05/2024 11:00 AM EST Consult [facility] Cardiology [address] [place] [phone] Ricci Carter MD [address] [place] [phone] Jamil Ralph MD [address] [place], [place] [phone] 05/30/2024 9:00 AM EST Office Visit [facility] [address] [phone] Consuelo Hobbs PA-C [address] [phone] documented as of this encounter Visit Diagnoses Not on filedocumented in this encounter Care Teams Ceramic Engineering Professor Relationship Specialty Start Date End Date Consuelo Hobbs PA-C [address] [place] [phone] PCP - General 05/01/19 Madi Sharp MD [address] [place] [address] Gastroenterology 10/02/19 documented as of this encounter
--- OUTSIDE RECORDS SUMMARY | 2023-10-29 17:50 | XMS_ITS | Encounter Summary ---
Author Organization [facility] Address [address] [place] [address] Care Team Providers Care Director Apparel Name Role Phone Consuelo Hobbs PA-C Primary Care Provider Madi Sharp MD Unavailable [phone] Encounter Details Date Type Department Care Team (Latest Contact Info) Description 05/22/2020 Travel Social History Tobacco Use Types Packs/Day [...] have Coronavirus / COVID-19? No / Unsure 05/22/2020 7:53 AM EST documented as of this encounter Plan of Treatment Upcoming Encounters Date Type Department Care Team (Late st Contact Info) Description 11/13/2023 7:45 AM EDT Office Visit [facility] Cancer [place] Medical Oncology at [address] [phone] Ricci Carter MD 85 [place] [address] 11/13/2023 8:30 AM EDT Infusion [facility] Cancer [place] at [facility] Outpatient Infusion Center [address] [phone] Ricci Carter MD [address] [place] [phone] Keiko Hallman MD 80 [facility] [place] [address] 11/20/2023 11:00 AM EDT Appointment [facility] Radiology [facility] [address] [place] [phone] Ricci Carter MD [address] [place] [phone] 11/20/2023 11:30 AM EDT Appointment [facility] Radiology [facility] 35 [place] [phone] Ricci Carter MD [address] [place] [phone] 03/05/2024 11:00 AM EST Consult [facility] Cardiology [address] [place] [phone] Ricci Carter MD [address] [place] [address] Jamil Ralph MD [address] [place], [place] [phone] 05/30/2024 9:00 AM EST Office Visit [facility] [address] [phone] Consuelo Hobbs PA-C [address] [phone] documented as of this encounter Visit Diagnoses Not on filedocumented in this encounter Care Teams Director Apparel Relationship Specialty Start Date End Date Consuelo Hobbs PA-C [address] [place] [phone] PCP - General 05/01/19 Madi Sharp MD [address] [place] [address] Gastroenterology 10/02/19 documented as of this encounter
--- OUTSIDE RECORDS SUMMARY | 2023-10-29 17:50 | XMS_ITS | Encounter Summary ---
Author Organization [facility] Address [address] [place] [address] Care Team Providers Care Baseball Umpire [employer] Name Role Phone Consuelo Hobbs PA-C Primary Care Provider Madi Sharp MD Unavailable [phone] Encounter Details Date Type Department Care Team (Latest Contact Info) Description 01/16/2020 Travel Social History Tobacco Use Types Packs/Day [...] Office Visit [facility] Cancer [place] Medical Oncology at [address] [phone] Ricci Carter MD [address] [place], [place] [phone] 11/13/2023 8:30 AM EDT Infusion [facility] [place] at [facility] Outpatient Infusion Center [address] [phone] Ricci Carter MD [address] [place], [place] [phone] Keiko Hallman MD 80 [facility] [place] [address] 11/20/2023 11:00 AM EDT Appointment [facility] Radiology [facility] Mammography 35 [place] [phone] Ricci Carter MD [address] [place] [address] 11/20/2023 11:30 AM EDT Appointment [facility] Radiology [facility] Mammography 35 [place] [phone] Ricci Carter MD [address] [place], [place] [phone] 03/05/2024 11:00 AM EST Consult [facility] Cardiology [address] [place] [phone] Ricci Carter MD [address] [place], [place] [phone] Jamil Ralph MD [address] [facility] [address] [place] [address] 05/30/2024 9:00 AM EST Office Visit [facility] Department of Internal Medicine [facility] 1210 [facility] [address] [place] [address] Consuelo Hobbs PA-C [address] [address] documented as of this encounter Visit Diagnoses Not on filedocumented in this encounter Care Teams Baseball [employer] Relationship Specialty Start Date End Date Consuelo Hobbs PA-C [address] [place] [phone] PCP - General 05/01/19 Madi Sharp MD [address] [place] [address] Gastroenterology 10/02/19 documented as of this encounter
--- OUTSIDE RECORDS SUMMARY | 2023-10-29 17:50 | XMS_ITS | Encounter Summary ---
Author Organization [facility] Address [address] [place] [address] Care Team Providers Care Quality Assurance Nurse Name Role Phone Consuelo Hobbs PA-C Primary Care Provider Madi Sharp MD Unavailable [phone] Reason for Visit * Episode Based Medications (Routine) - Authorized Specialty Diagnoses / Procedures Referred By Contac t Referred To Contact Diagnoses Carcinoid tumor of ileum, unspecified whether malignant (HCC) Keiko Hallman MD 80 [facility] [place] [address] [phone] Referral ID Status Reason Start Date Expiration Date V isits Requested Visits Authorized [id number] Authorized 04/29/2022 11/27/2023 5 2 Encounter Details Date Type Department Care Team (Late st Contact Info) Description 03/26/2020 8:30 AM EST Infusion [facility] Cancer [place] at [facility] Outpatient Infusion Center [address] [phone] Ricci Carter MD [address] [place] [address] Keiko Hallman MD 80 [facility] [place] [address] Han Varner RN 80 [place] [address] Carcinoid tumor of ileum, unspecified whether malignant [...] Sign Reading Time Taken Comments Blood Pressure 147/81 03/26/2020 8:19 AM EST Pulse 83 03/26/2020 8:19 AM EST Temperature 36.9 ??C (98.5 ??F) 03/26/2020 8:19 AM ES T Respiratory Rate 16 03/26/2020 8:19 AM EST Oxygen Saturation 100% 03/26/2020 8:19 AM EST Inhaled Oxygen Concentration - - Weight 61.7 kg (136 lb) 03/26/2020 8:19 AM EST Height 160 cm (5' 2.99) 03/26/2020 8:19 AM EST Body Mass Index 24.1 03/26/2020 8:19 AM EST documented in this encounter Plan of Treatment Upcoming Encounters Date Type Department Care Team (Late st Contact Info) Description 11/13/2023 7:45 AM EDT Office Visit [facility] Cancer [place] Medical Oncology at [address] [phone] Ricci Carter MD [address] [place] [address] 11/13/2023 8:30 AM EDT Infusion [facility] Cancer [place] at [facility] Outpatient Infusion Center [address] [phone] Ricci Carter MD [address] [place], [place] [phone] Keiko Hallman MD 80 [facility] [place] [address] 11/20/2023 11:00 AM EDT Appointment [facility] Radiology Sh[facility] Mammography 35 [place] [phone] Ricci Carter MD [address] [place] [address] 11/20/2023 11:30 AM EDT Appointment [facility] Radiology [facility] Mammography [address] [place] [phone] Ricci Carter MD [address] [place], [place] [phone] 03/05/2024 11:00 AM EST Consult [facility] Group Cardiology [address] [place] [phone] Ricci Carter MD [address] [place], [place] [phone] Jamil Ralph MD [address] [facility] [address] [place] [address] 05/30/2024 9:00 AM EST Office Visit [facility] 1210 [facility] 109 [place], [place] [phone] Consuelo Hobbs PA-C [address] [phone] documented as of this encounter Visit Diagnoses Diagnosis Carcinoid tumor of ileum, unspecified whether malignant (HCC)- Primary documented in this encounter Administered Medications Inactive Administered Medications - up to 1 most recent administrations Medication Order MAR Action Action Date Dose Rate Site octreotide (SandoSTATIN LAR) IM injection 40 mg 40 mg, Intramuscular, Once, On Marcelle 03/26/20 at 0900, For 1 dose, Administer IM intragluteal (avoid deltoid administration). For intraMUSCULAR use ONLY. Must be administered immediately after mixing. Given 03/26/2020 8:28 AM EST 40 mg Other (See Comments) documented in this encounter Care Teams Quality Assurance Nurse Relationship Specialty Start Date End Date Consuelo Hobbs PA-C [address] [place] [phone] PCP - General 05/01/19 Madi Sharp MD [address] [place] [address] Gastroenterology 10/02/19 documented as of this encounter
--- OUTSIDE RECORDS SUMMARY | 2023-10-29 17:50 | XMS_ITS | Encounter Summary ---
Author Organization [facility] Address [address] [place] [address] Care Team Providers Care Timing Machine Operator Name Role Phone Consuelo Hobbs PA-C Primary Care Provider Madi Sharp MD Unavailable [phone] Encounter Details Date Type Department Care Team ([facility] Contact Info) Description 05/21/[address] [facility] [address] [place] [address] [place] [phone] Rachael Briseno PA 85 [facility] [address] [place], [place] [phone] Social History Tobacco Use Types Packs/Day Years [...] encounter Miscellaneous Notes * Telephone Encounter - Jovita Farley - 05/21/2020 3:21 PM EST TeleMedicine Verbal Consent Patient identified by name and . The patient has verbally agreed to participate in telemedicine as part of their treatment. They understand that ???telemedicine?? includes the practice of health care delivery, diagnosis, consultation, treatment, and education using interactive audio and/or video. The patient understands they have the following rights with respect to telemedicine: (1) Withhold or withdraw consent at any time (2) The information disclosed both to and from the provider is confidential. (3) There are risks and benefits from TeleMedicine. Benefits include increased access to medical care, efficiency, and convenience. Risks include technology malfunction and the visit may not be as complete as [id number] services. (4) Results from a telemedicine visit cannot be guaranteed or assured. (5) Right to access their medical information and copies of medical records in accordance with law. The patient was advised of the potential risks, consequences and benefits of telemedicine. They hadan opportunity to ask questions about this information and their questions were answered. The patient understands the verbal information offered from above. The provider will also review consent withthe patient at the start of the appointment. documented in this encounter Plan of Treatment Upcoming Encounters Date Type Department Care Team (Late st Contact Info) Description 11/13/2023 7:45 AM EDT Office Visit [facility] Medical Oncology at [address] [phone] Ricci Carter MD [address] [place] [address] 11/13/2023 8:30 AM EDT Infusion [facility] Cancer [place] at [facility] Outpatient Infusion Center [address] [phone] Ricci Carter MD [address] [place] [address] Keiko Hallman MD 80 [facility] [place] [address] 11/20/2023 11:00 AM EDT Appointment [facility] Radiology [facility] Mammography [address] [place] [phone] Ricci Carter MD [address] [place] [address] 11/20/2023 11:30 AM EDT Appointment [facility] Radiology [facility] Mammography [address] [place] [phone] Ricci Carter MD [address] [place] [address] 03/05/2024 11:00 AM EST Consult [facility] Cardiology [address] [place] [phone] Ricci Carter MD [address] [place] [address] Jamil Ralph MD [address] [facility] [address] [place] [address] 05/30/2024 9:00 AM EST Office Visit [facility] Department of Internal Medicine [facility] 1210 [facility] [address] [place], [place] [phone] Consuelo Hobbs PA-C 1210 [facility] [address] [place] [address] documented as of this encounter Visit Diagnoses Not on filedocumented in this encounter Care Teams Timing Machine Operator Relationship Specialty Start Date End Date Consuelo Hobbs PA-C [address] [address] PCP - General 05/01/19 Madi Sharp MD [address] [address] Gastroenterology 10/02/19 documented as of this encounter
--- OUTSIDE RECORDS SUMMARY | 2023-10-29 17:50 | XMS_ITS | Encounter Summary ---
Author Organization [facility] Address [address] [place] [address] Care Team Providers Care Subway Repair Supervisor Name Role Phone Consuleo Hobbs PA-C Primary Care Provider Madi Sharp MD Unavailable [phone] Encounter Details Date Type Department Care Team (Latest Contact Info) Description 07/17/2020 Travel Social History Tobacco Use Types Packs/Day [...] have Coronavirus / COVID-19? No / Unsure 07/17/2020 8:21 AM EDT documented as of this encounter Plan of Treatment Upcoming Encounters Date Type Department Care Team ( st Contact Info) Description 11/13/2023 7:45 AM EDT Office Visit [facility] Cancer [place] Medical Oncology at [address] [phone] Ricci Carter MD [address] [place] [address] 11/13/2023 8:30 AM EDT Infusion [facility] [place] at [facility] Outpatient Infusion Center [address] [phone] Ricci Carter MD [address] [place], [place] [phone] Keiko Hallman MD 80 [facility] [place] [address] 11/20/2023 11:00 AM EDT Appointment [facility] Radiology [facility] Mammography [address] [place] [phone] Ricci Carter MD [address] [place] [phone] 11/20/2023 11:30 AM EDT Appointment [facility] Radiology [facility] Mammography 35 [place] [phone] Ricci Carter MD [address] [place], [place] [phone] 03/05/2024 11:00 AM EST Consult [facility] Cardiology [address] [place] [phone] Ricci Carter MD [address] [place], [place] [phone] Jamil Ralph MD [address] [place] [facility] [address] [place], [place] [phone] 05/30/2024 9:00 AM EST Office Visit [facility] Department of Internal Medicine [facility] [address] [phone] Consuelo Hobbs PA-C [address] [phone] documented as of this encounter Visit Diagnoses Not on filedocumented in this encounter Care Teams Subway Repair Supervisor Relationship Specialty Start Date End Date Consuelo Hobbs PA-C [address] [place] [phone] PCP - General 05/01/19 Madi Sharp MD [address] [place] [address] Gastroenterology 10/02/19 documented as of this encounter
--- OUTSIDE RECORDS SUMMARY | 2023-10-29 17:50 | XMS_ITS | Encounter Summary ---
Author Organization [facility] Address [address] [place] [address] Care Team Providers Care Health Plan Manager Name Role Phone Consuelo Hobbs PA-C Primary Care Provider Madi Sharp MD Unavailable [phone] Reason for Visit * Reason Comments Follow-up also c/o vommiting a nd diarrhea, no fever Encounter Details Date Type Department Care Team (Late st Contact Info) Description 04/13/2020 9:25 AM EST Office Visit [facility] [place]: Oncology and Hematology [address] [phone] Ricci Carter MD [address] [place], [place] [phone] Carcinoid tumor of ileum (Primary Dx); Encounter for monitoring octreotide therapy; Diarrhea; Heart palpitations; Oncology follow-up encounter; Abdominal pain Social History Tobacco Use Types [...] Sign Reading Time Taken Comments Blood Pressure 142/88 04/13/2020 9:32 AM EST Pulse 96 04/13/2020 9:33 AM EST Temperature 36 ??C (96.8 ??F) 04/13/2020 9:33 AM EST Respiratory Rate 18 04/13/2020 9:33 AM EST Oxygen Saturation 99% 04/13/2020 9:33 AM EST Inhaled Oxygen Concentration - - Weight 60.3 kg (133 lb) 04/13/2020 9:32 AM EST Height - - Body Mass Index 23.56 03/30/2020 4:00 PM EST documented in this encounter Progress Notes * Ricci Carter MD - 04/13/2020 9:25 AM EST Images from the original note were not included. Medical Oncology/Hematology Progress Note Healthcare Team: CATHI Palacios Subjective: Date of visit is: April 13, 2020 Rody Sotelo is a 49 y.o. female who presents here today for a follow- up visit regarding carcinoid. ONCOLOGY HISTORY: - December 16, 2019, colonoscopy was normal. Interim History: She continues to receive Sandostatin LAR. Her last dose was administered on March 26, 2020. This weekend, she developed abdominal cramping and pain (inferior abdomen), and vomiting. She has been taking 600 mg of IBU every 6 hours for her trapezius pain. Vomited yesterday due to pain, one episode. Diarrhea worse. She required couple of octroetide injections this weekend. Watery stools. She took a dose of morphine with good effect. She reports no nausea now. Abdominal pain is better. Burning, stabbing, comes in waves and last 1-3 hours. Morphine improved pain. She denies any fevers. She reports no COVID exposures. She was down to taking 6 lopermide per day. She has cut down caffeine. Denies flushing. Pain: 0 REVIEW OF SYSTEMS: Review of Systems Constitutional: Positive for fatigue. Negative for appetite change and unexpected weight change. HENT: Negative for mouth sores and nosebleeds. Respiratory: Negative for cough, shortness of breath and wheezing. Cardiovascular: Positive for palpitations (slowly improved). Negative for leg swelling. Gastrointestinal: Negative for blood in stool. Musculoskeletal: Positive for back pain. Neurological: Positive for headaches (migraines remain the same). Negative for dizziness and light-headedness (resolved (last evening)). Hematological: Does not bruise/bleed easily. The remainder [...] Disp: 120 tablet, Rfl: 5 ??? CREON [address] Particles capsule, 36,000 Units 3 (three) times a day with meals. , Disp: , Rfl: ??? cyclobenzaprine (FLEXERIL) 10 MG tablet, Take 10 mg by mouth 3 times daily (every 8 hours) as needed for muscle spasms., Disp: , Rfl: ??? ergotamine-caffeine (CAFERGOT) 1-100 [...] Disp: 90 mL, Rfl: 11 ??? rizatriptan (MAXALT-OFFICE SERVICES REPRESENTATIVE) 10 MG disintegrating tablet, DISSOLVE ONE TABLET [...] Objective: Wt Readings from Last 2 Encounters: 04/13/20 60.3 kg (133 lb) 03/30/20 59.4 kg (131 lb) . Physical Exam Vitals: 04/13/20 0932 04/13/20 0933 BP: (!) 142/88 BP Location: Left arm Pulse: 96 Resp: 18 Temp: 96.8 ??F (36 ??C) TempSrc: Tympanic SpO2: 99% Weight: 60.3 kg (133 lb) Performance status: ECOG (0) Fully active, [...] is normal. Judgment and thought contentnormal. Results: Cardiology records reviewed Assessment/Plan: 1. Carcinoid, [id number] A. Diagnosed July 11, 2013 1. S/p [...] for a follow- up visit regarding carcinoid. This past weekend, Rody developed exacerbation of lower abdominal pain, diarrhea and vomiting. She had been taking [id number] ibuprofen for trapezius pain. She required short acting octreotide and dose of morphine sulfate. Her abdominal pain has improved. She continues to receive Sandostatin LAR 40 mg every 3 weeks. Her last dose was administered on March 26, 2020. I recommended she decrease dose of ibuprofen. Trial (short-term) of omeprazole while holding famotidine. Her abdomen is benign by exam. She is afebrile. I have ordered stool cultures. Continue Sandostatin LAR 40 mg every 3 weeks, next dose due April 16, 2020. She continues to tolerate Sandostatin LAR well. Continue colestipol, loperamide, granisetron. Instructed that she call me or her dry house tender if her abdominal symptoms do not improve. 2. Use of medical marijuana Continue medical marijuana. 3. Palpitations On March 30, 2020 she was seen by cardiology. It was recommended she discontinue caffeine intake, increase exercise. Echocardiogram ordered. Holter monitor recommended. She did receive influenza vaccine 2019. I have discussed COVID-19 vaccination. I have recommended immunization once it becomes available toher. Orders Placed This Encounter Procedures ??? Rotovirus Stool Antigen Standing Status: Future Number of Occurrences: 1 Standing Expiration Date: 04/13/2021 ??? Stool Culture w/Shiga Toxin Standing Status: Future Number of Occurrences: 1 Standing Expiration Date: 04/13/2021 ??? Stool Culture, R/O Yersinia Standing Status: Future Number of Occurrences: 1 Standing Expiration Date: 04/13/2021 ??? Norovirus PCR, Stool Standing Status: Future Number of Occurrences: 1 Standing Expiration Date: 04/13/2021 ??? C. Difficile Toxin/GDH w/ Reflex to PCR Standing Status: Future Number of Occurrences: 1 Standing Expiration Date: 04/13/2021 The patient will return in 6 weeks. There are no Patient Instructions on file for this visit. documented in this encounter Plan of Treatment Upcoming Encounters Date Type Department Care Team (Late st Contact Info) Description 11/13/2023 7:45 AM EDT Office Visit [facility] Medical Oncology at [address] [phone] Ricci Carter MD [address] [place], [place] [phone] 11/13/2023 8:30 AM EDT Infusion [facility] [place] at [facility] [address] [phone] Ricci Carter MD [address] [place], [place] [phone] Keiko Hallman MD 80 [facility] [place] [address] 11/20/2023 11:00 AM EDT Appointment [facility] Radiology [facility] [address] [place] [phone] Ricci Carter MD [address] [place] [address] 11/20/2023 11:30 AM EDT Appointment [facility] Radiology [facility] [address] [place] [phone] Ricci Carter MD [address] [place] [address] 03/05/2024 11:00 AM EST Consult [facility] Cardiology [address] [place] [phone] Ricci Carter MD [address] [place] [address] Jamil Ralph MD [address] [place] [address] 05/30/2024 9:00 AM EST Office Visit [facility] Department of Internal Medicine [facility] [address] [facility] [address] [place], [place] [phone] Consuelo Hobbs PA-C 1210 [facility] [address] [place] [phone] Scheduled Orders Name Type Priority Associated Diagnoses Orde r Schedule Norovirus PCR, Stool Lab Routine Carcinoid tumor of ileum Diarrhea Expected: 04/13/2020, Expires: 04/13/2021 Rotovirus Stool Antigen Microbiology Routine Carcinoid tumor of ileum Diarrhea Expected: 04/13/2020, Expires: 04/13/2021 C. Difficile Toxin/GDH w/ Reflex to PCR Lab Routine Carcinoid tumor of ileum Diarrhea Expected: 04/13/2020, Expires: 04/13/2021 Stool Culture w/Shiga Toxin Microbiology Routine Carcinoid tumor of ileum Diarrhea Expected: 04/13/2020, Expires: 04/13/2021 Stool Culture, R/O Yersinia Microbiology Routine Carcinoid tumor of ileum Diarrhea Expected: 04/13/2020, Expires: 04/13/2021 documented as of this encounter Visit Diagnoses Diagnosis Carcinoid tumor of ileum (HCC)- Primary Encounter for monitoring octreotide therapy Diarrhea Heart palpitations Palpitations Oncology follow-up encounter Abdominal pain Abdominal pain, unspecified site documented in this encounter Care Teams Health Plan Manager Relationship Specialty Start Date End Date Consuelo Hobbs PA-C 1210 [facility] [address] [place] [address] PCP - General 05/01/19 Madi Sharp MD 85 [facility] [address] [place] [address] Gastroenterology 10/02/19 documented as of this encounter
--- OUTSIDE RECORDS SUMMARY | 2023-10-29 17:50 | XMS_ITS | Encounter Summary ---
Author Organization [facility] Address [address] [place] [address] Care Team Providers Care Boat Designer Name Role Phone Consuelo Hobbs PA-C Primary Care Provider Madi Sharp MD Unavailable [phone] Reason for Visit * Episode Based Medications (Routine) - Authorized Specialty Diagnoses / Procedures Referred By Contac t Referred To Contact Diagnoses Carcinoid tumor of ileum, unspecified whether malignant (HCC) Keiko Hallman MD 80 [facility] [place] [address] [phone] Referral ID Status Reason Start Date Expiration Date V isits Requested Visits Authorized [id number] Authorized 04/29/2022 11/27/2023 5 2 Encounter Details Date Type Department Care Team (Late st Contact Info) Description 02/06/2020 9:00 AM EST Infusion [facility] [place] at [facility] Out[facility] Infusion Center [address] [phone] Ricci Carter MD [address] [place] [address] Keiko Hallman MD 80 [facility] [place] [address] Carcinoid tumor of ileum, unspecified whether malignant [...] Reading Time Taken Comments Blood Pressure 133/72 02/06/2020 8:45 AM EST Pulse 83 02/06/2020 8:45 AM EST Temperature 37 ??C (98.6 ??F) 02/06/2020 8:45 AM EST Respiratory Rate 16 02/06/2020 8:45 AM EST Oxygen Saturation 99% 02/06/2020 8:45 AM EST Inhaled Oxygen Concentration - - Weight 61.7 kg (136 lb) 02/06/2020 8:45 AM EST Height 160 cm (5' 2.99) 02/06/2020 8:45 AM EST Body Mass Index 24.1 02/06/2020 8:45 AM EST documented in this encounter Plan of Treatment Upcoming Encounters Date Type Department Care Team (Late st Contact Info) Description 11/13/2023 7:45 AM EDT Office Visit [facility] Medical Oncology at [address] [phone] Ricci Carter MD [address] [place] [address] 11/13/2023 8:30 AM EDT Infusion [facility] [place] at [facility] Out[facility]fusion [facility] [place] [address] [place] [phone] Ricci Carter MD [address] [place] [phone] Keiko Hallman MD 80 [facility] [place] [address] 11/20/2023 11:00 AM EDT Appointment [facility] Radiology [facility] [address] [place] [phone] Ricci Carter MD [address] [place], [place] [phone] 11/20/2023 11:30 AM EDT Appointment [facility] Radiology [facility] [address] [place] [phone] Ricci Carter MD [address] [place], [place] [phone] 03/05/2024 11:00 AM EST Consult [facility] Cardiology [address] [place] [phone] Ricci Carter MD [address] [place] [address] Jamil Ralph MD [address] [facility] [address] [place] [address] 05/30/2024 9:00 AM EST Office Visit [facility] Department of Internal Medicine [facility] [address] [facility] [address] [place] [address] Consuelo Hobbs PA-C [address] [address] documented as of this encounter Visit Diagnoses Diagnosis Carcinoid tumor of ileum, unspecified whether malignant (HCC)- Primary documented in this encounter Administered Medications Inactive Administered Medications - up to 1 most recent administrations Medication Order MAR Action Action Date Dose Rate Site octreotide (SandoSTATIN LAR) IM injection 40 mg 40 mg, Intramuscular, Once, On Marcelle 02/06/20 at 0930, For 1 dose, Administer IM intragluteal (avoid deltoid administration). For intraMUSCULAR use ONLY. Must be administered immediately after mixing. Given 02/06/2020 9:14 AM EST 40 mg Other (See Comments) documented in this encounter Care Teams Boat Designer Relationship Specialty Start Date End Date Consuelo Hobbs PA-C [address] [address] PCP - General 05/01/19 Madi Sharp MD [address] [place] [address] Gastroenterology 10/02/19 documented as of this encounter
--- OUTSIDE RECORDS SUMMARY | 2023-10-29 17:50 | XMS_ITS | Encounter Summary ---
Author Organization [facility] Address [address] [place] [address] Care Team Providers Care Mill Feeder Name Role Phone Consuelo Hobbs PA-C Primary Care Provider Madi Sharp MD Unavailable [phone] Reason for Visit * Reason Comments Hospital Follow-up Encounter Details Date Type Department Care Team (Late st Contact Info) Description 05/22/2020 8:00 AM EST Telemedicine [facility] [address] [place] [address] [place] [phone] Rachael Briseno PA [address] [facility] [address] [place] [address] Epigastric pain (Primary Dx) Social History Tobacco Use Types [...] Sign Reading Time Taken Comments Blood Pressure - - Pulse - - Temperature - - Respiratory Rate - - Oxygen Saturation - - Inhaled Oxygen Concentration - - Weight 60.8 kg (134 lb) 05/22/2020 7:54 AM EST Height 160 cm (5' 3) 05/22/2020 7:54 AM EST Body Mass Index 23.74 05/22/2020 7:54 AM EST documented in this encounter Progress Notes * CATHI Agosto - 05/22/2020 8:00 AM EST Images from the original note were not included. [address] [facility] [phone] [facility] - TeleMedicine Note - Introduction Rody Sotelo is being seen today for a visit via telehealth technology. Rody Sotelo provided verbal consent to [facility] staff prior to proceeding with this telehealth encounter. This visit was completed using (Choose one): Live Video and Voice The patient's identity was confirmed by Name and Date of . The patient reported the following physical address during the telehealth visit: home. In the event visit is disconnected, the patient telephone contact: listed in Epic Additional persons present during telehealth visit: No Extenuating circumstances for telemedicine visit: COVID19 pandemic Patient verbally consented to participate in a Virtual Check-In visit today and understands that they may or may not be required to share in the cost of this service. All standard copays, coinsurance& deductibles apply unless otherwise specified due to temporary provisions (COVID19 pandemic). The patient was told that if at any point they or the provider feel the video visit is in not adequat e they can opt for scheduling a face to face visit. Verbal consent for this telehealth visit was obtained after treatment methods and limitations of telehealth were discussed with the patient. Verbalconsent was also obtained to disclose the telehealth medical record to their primary care physician. In the event the connection was lost during an audio/video visit, the appointment should resume with phone (audio) only. Technical quality of visit: good. Total Time Spent on Day of Service: 20 min No LOS data to display During this visit, the time spent included the following: Chart review in preparation for the visit Documenting in the patient record Reviewing Labs & Radiology Medication Reconciliation Date of Labs / Imaging Reviewed: cf 2019 Subjective Rody Sotelo is a 49 y.o. female who is being evaluated for abd pain. HPI x 1 month with intermittent epig pain. Became severe 2 weeks ago- went to [facility]- patient reports ct neg but told ulcer based on description and her past hx pud. Rx sucralfate susp and advised to start otc omeprazole 20mg and to stop her famotidine 40mg bid which she has taken cad administrator. She does feel improved on ppi but hasn't completely resolved. Admits to nsaids in month preceeding pain due to injury. Hx bleeding ulcer 2012, 2014 Denies melena or hematochezia. 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 Objective Vitals: 05/22/20 0754 Weight: 60.8 kg (134 lb) Height: 1.6 m (5' 3) Body mass index is 23.74 kg/m??. Physical Exam: TeleHealth Visit Type: Video: Physical (via Video): General: Non-toxic appearing, in no distress Eyes: No visible icteric sclera Respiratory: No visible increased work of breathing Neuro: Awake, alert and answering questions appropriately. Skin: Visible skin without diffuse rash Physical Exam Allergies Allergen Reactions ??? Levaquin [Levofloxacin] Myalgia/Myositis/Arthralgia/Arthritis ??? Cefaclor GI Intolerance/Nausea/Vomiting ??? Erythromycin GI Intolerance/Nausea/Vomiting Outpatient Medications Marked as Taking for the 05/22/20 encounter (Telemedicine) with CATHI Agosto: ??? calcium carbonate (OS-ANGELICA) 600 MG tablet, Take 600 mg by mouth every morning with breakfast., Disp: , Rfl: ??? Cannabis (MARIJUANA) Misc Medical Prescription Strength, as needed., Disp: , Rfl: ??? colestipol (COLESTID) 1 g tablet, Take 2 tablets (2 g total) by mouth 2 (two) times a day. Witha large glass of water., Disp: 120 tablet, Rfl: 5 ??? CREON [address] Particles capsule, 36,000 Units [...] days (4 weeks)., Disp: , Rfl: ??? rizatriptan (MAXALT-AUTO BUMPER STRAIGHTENER) 10 MG disintegrating tablet, DISSOLVE ONE TABLET BY MOUTH EVERY DAY ASNEEDED, Disp: 9 tablet, Rfl: 0 ??? Vitamin D3 (CHOLECALICEROL) 50 MCG (1999 UT) tablet, Take 2,000 Units by mouth daily., Disp: , Rfl: Recent Labs and Tests CBC Past 3 Results over 6 Months Labs 02/06/20 0957 WBC 6.8 HGB 12.2 HCT 37.6 MCV 93 PLT 189 CMP Past 3 Results over 6 Months Labs 02/06/20 0954 ALT 14 ALKPHOS 66 AST 20 BILITOT 0.4 BUN 9 CALCIUM 9.3 CO2 26 CL 100 CREAT 0.65 GLUC 92 K 4.2 NA 136 Histories Past Medical History: Diagnosis Date ??? Cancer [...] Aunt ??? Tuberculosis Maternal Grandfather Social History Tobacco Use ??? Smoking status: [...] week ??? Drug use: Not on file GI Procedural History All relevant data including labs, xrays, diagnostic studies, physician notes, and referral notes were reviewed. Assessment & Plan Assessment: Epig pain with recent nsaid use and hx pud. Concern for recurrent ulcer. Partial improvement on ppi. Plan: Cont omeprazole 20mg qd Add back famotidine which she has taken chronically- will take 40mg qd for now Refill sucralfate susp Schedule upper endoscopy suhail. Risks/benefits of procedure reviewed with patient. Orders Placed This Encounter ??? EGD documented in this encounter Plan of Treatment Upcoming Encounters Date Type Department Care Team (Late st Contact Info) Description 11/13/2023 7:45 AM EDT Office Visit [facility] Medical Oncology at [address] [phone] Ricci Carter MD [address] [place] [address] 11/13/2023 8:30 AM EDT Infusion [facility] [place] at [facility] Outpatient [address] [phone] Ricci Carter MD [address] [place] [address] Keiko Hallman MD 80 [facility] [place] [address] 11/20/2023 11:00 AM EDT Appointment [facility] Radiology [facility] [address] [place] [phone] Ricci Carter MD [address] [place], [place] [phone] 11/20/2023 11:30 AM EDT Appointment [facility] Radiology [facility] [address] [place] [phone] Ricci Carter MD [address] [place], [place] [phone] 03/05/2024 11:00 AM EST Consult [facility] Medical [facility] Cardiology [address] [place] [phone] Ricci Carter MD [address] [place], [place] [phone] Jamil Ralph MD [address] [address] 05/30/2024 9:00 AM EST Office Visit [facility] Department of Internal Medicine [facility] 12[address] [facility] [address] [place], [place] [phone] Consuelo Hobbs PA-C [address] [address] documented as of this encounter Visit Diagnoses Diagnosis Epigastric pain- Primary Abdominal pain, epigastric documented in this encounter Care Teams Mill Feeder Relationship Specialty Start Date End Date Consuelo Hobbs PA-C [address] [phone] PCP - General 05/01/19 Madi Sharp MD [address] [address] Gastroenterology 10/02/19 documented as of this encounter
--- OUTSIDE RECORDS SUMMARY | 2023-10-29 17:50 | XMS_ITS | Encounter Summary ---
Author Organization [facility] Address [address] [place] [address] Care Team Providers Care Citrus Fruit Colorer Name Role Phone Consuelo Hobbs PA-C Primary Care Provider Madi Sharp MD Unavailable [phone] Encounter Details Date Type Department Care Team (Latest Contact Info) Description 01/20/2020 Travel Social History Tobacco Use Types Packs/Day [...] ED T documented as of this encounter Plan of Treatment Upcoming Encounters Date Type Department Care Team (Late st Contact Info) Description 11/13/2023 7:45 AM EDT Office Visit [facility] [place] Medical Oncology at [address] [phone] Ricci Carter MD [address] [place], [place] [phone] 11/13/2023 8:30 AM EDT Infusion [facility] [place] at [facility] Outpatient Infusion Center [address] [phone] Ricci Carter MD [address] [place], [place] [phone] Keiko Hallman MD 80 [facility] [place] [address] 11/20/2023 11:00 AM EDT Appointment [facility] Radiology [facility] [address] [place] [address] [phone] Ricci Carter MD [address] [place], [place] [phone] 11/20/2023 11:30 AM EDT Appointment [facility] Radiology [facility] [address] [place] [phone] Ricci Carter MD [address] [place] [address] 03/05/2024 11:00 AM EST Consult [facility] Medical [facility] Cardiology [address] [place] [phone] Ricci Carter MD [address] [place], [place] [phone] Jamil Ralph MD [address] [facility] [address] [place] [address] 05/30/2024 9:00 AM EST Office Visit [facility] Department of Internal Medicine [place] [phone] [facility] [address] [place] [address] Consuelo Hobbs PA-C [address] [phone] documented as of this encounter Visit Diagnoses Not on filedocumented in this encounter Care Teams Citrus Fruit Colorer Relationship Specialty Start Date End Date Consuelo Hobbs PA-C [address] [phone] PCP - General 05/01/19 Madi Sharp MD [address] [place] [address] Gastroenterology 10/02/19 documented as of this encounter
--- OUTSIDE RECORDS SUMMARY | 2023-10-29 17:50 | XMS_ITS | Encounter Summary ---
Author Organization [facility] Address [address] [place] [address] Care Team Providers Care Window Shade Estimator Name Role Phone Consuelo Hobbs PA-C Primary Care Provider Madi Sharp MD Unavailable [phone] Reason for Visit * Reason Comments Injections * Episode Based Medications (Routine) - Authorized Specialty Diagnoses / Procedures Referred By Contbalbir t Referred To Contact Diagnoses Carcinoid tumor of ileum, unspecified whether malignant (HCC) Keiko Hallman MD [address] [facility] [place] [address] Med On[address] [address] Referral ID Status Reason Start Date Expiration Date V isits Requested Visits Authorized [id number] Authorized 04/29/2022 11/27/2023 5 2 Encounter Details Date Type Department Care Team (Late st Contact Info) Description 07/17/2020 8:15 AM EDT Infusion [facility] [place] [facility] Out[facility] Infusion Center [address] [phone] Ricci Carter MD [address] [place] [address] Keiko Hallman MD [address] [facility] [place] [address] Sienna Alaniz RN 80 [place] [address] Carcinoid tumor of ileum, unspecified whether malignant [...] Sign Reading Time Taken Comments Blood Pressure 134/79 07/17/2020 8:14 AM EDT Pulse 91 07/17/2020 8:14 AM EDT Temperature 35.9 ??C (96.7 ??F) 07/17/2020 8:14 AM ED T Respiratory Rate 16 07/17/2020 8:14 AM EDT Oxygen Saturation 100% 07/17/2020 8:14 AM EDT Inhaled Oxygen Concentration - - Weight 59.4 kg (131 lb) 07/17/2020 8:14 AM EDT Height - - Body Mass Index 23.21 06/05/2020 8:47 AM EST documented in this encounter Plan of Treatment Upcoming Encounters Date Type Department Care Team (Late st Contact Info) Description 11/13/2023 7:45 AM EDT Office Visit [facility] Cancer [place] Medical Oncology at [address] [phone] Ricci Carter MD [address] [place] [address] 11/13/2023 8:30 AM EDT Infusion [facility] [place] [facility] Out[facility]fusion Center [address] [phone] Ricci Carter MD [address] [place], [place] [phone] Keiko Hallman MD 80 [facility] [place] [address] 11/20/2023 11:00 AM EDT Appointment [facility] Radiology [facility] [facility] [address] [place] [phone] Ricci Carter MD [address] [place], [place] [phone] 11/20/2023 11:30 AM EDT Appointment [facility] Radiology [place] [facility] [address] [place] [phone] Ricci Carter MD [address] [place] [address] 03/05/2024 11:00 AM EST Consult [facility] Cardiology [address] [place] [phone] Ricci Carter MD [address] [place], [place] [phone] Jamil Ralph MD [address] [facility] [address] [place], [place] [phone] 05/30/2024 9:00 AM EST Office Visit [facility] Department of Internal Medicine [facility] 1210 [facility] [address] [place], [place] [phone] Consuelo Hobbs PA-C 1210 [facility] 109 [place], [place] [phone] documented as of this encounter Visit Diagnoses Diagnosis Carcinoid tumor of ileum, unspecified whether malignant (HCC)- Primary documented in this encounter Administered Medications Inactive Administered Medications - up to 1 most recent administrations Medication Order MAR Action Action Date Dose Rate Site octreotide (SandoSTATIN LAR) IM injection 40 mg 40 mg, Intramuscular, Once, On Mon07/17/20 at 0900, For 1 dose, Administer IM intragluteal (avoid deltoid administration). For intraMUSCULAR use ONLY. Must be administered immediately after mixing. Given 07/17/2020 8:28 AM EDT 40 mg Left Gluteal Upper Outer Quadrant documented in this encounter Care Teams Window Shade Estimator Relationship Specialty Start Date End Date Consuelo Hobbs PA-C [address] [place] [phone] PCP - General 05/01/19 Madi Sharp MD [address] [place] [address] Gastroenterology 10/02/19 documented as of this encounter
--- OUTSIDE RECORDS SUMMARY | 2023-10-29 17:50 | XMS_ITS | Encounter Summary ---
Author Organization [facility] Address [address] [place] [address] Care Team Providers Care Payroll Administrative Assistant Name Role Phone Consuelo Hobbs PA-C Primary Care Provider Madi Sharp MD Unavailable [phone] Encounter Details Date Type Department Care Team ([facility] Contact Info) Description 01/15/2020 Orders Only [facility] Cancer [place]: Oncology and Hematology [address] [phone] Ricci Carter MD [address] [place] [address] Social History Tobacco Use Types Packs/Day Years [...] have Coronavirus / COVID-19? No / Unsure 12/26/2019 8:09 AM EDT documented as of this encounter Plan of Treatment Upcoming Encounters Date Type Department Care Team (Late Contact Info) Description 11/13/2023 7:45 AM EDT Office Visit [facility] Medical Oncology at [address] [phone] Ricci Carter MD [address] [place], [place] [phone] 11/13/2023 8:30 AM EDT Infusion [facility] Cancer [place] [facility] Outpatient Infusion Center [address] [phone] Ricci Carter MD [address] [place], [place] [phone] Keiko Hallman MD 80 [facility] [place] [address] 11/20/2023 11:00 AM EDT Appointment [facility] Radiology [facility] [facility] [address] [place] [phone] Ricci Carter MD [address] [place], [place] [phone] 11/20/2023 11:30 AM EDT Appointment [facility] Radiology [facility] [facility] [address] [place] [phone] Ricci Carter MD [address] [place], [place] [phone] 03/05/2024 11:00 AM EST Consult [facility] Cardiology [address] [place] [phone] Ricci Carter MD [address] [place], [place] [phone] Jamil Ralph MD [address] [place] [address] 05/30/2024 9:00 AM EST Office Visit [facility] Department of Internal Medicine [facility] [address] [facility] 109 [place] [address] Consuelo Hobbs PA-C 1210 [facility] 109 [place] [address] documented as of this encounter Visit Diagnoses Not on filedocumented in this encounter Care Teams Payroll Administrative Assistant Relationship Specialty Start Date End Date Consuelo Hobbs PA-C [address] [place] [address] PCP - General 05/01/19 Madi Sharp MD [address] [address] Gastroenterology 10/02/19 documented as of this encounter
--- OUTSIDE RECORDS SUMMARY | 2023-10-29 17:50 | XMS_ITS | Encounter Summary ---
Author Organization [facility] Address [address] [place] [address] Care Team Providers Care Aboriginal Home School Liaison Officer Name Role Phone Consuelo Hobbs PA-C Primary Care Provider Madi Sharp MD Unavailable [phone] Reason for Visit * Episode Based Medications (Routine) - Authorized Specialty Diagnoses / Procedures Referred By Contac t Referred To Contact Diagnoses Carcinoid tumor of ileum, unspecified whether malignant (HCC) Keiko Hallman MD 80 [facility] [place] [address] Med Onc Ci [address] [phone] Referral ID Status Reason Start Date Expiration Date V isits Requested Visits Authorized [id number] Authorized 04/29/2022 11/27/2023 5 2 Encounter Details Date Type Department Care Team (Late st Contact Info) Description 06/05/2020 8:00 AM EST Infusion [facility] Cancer [place] [facility] Outpatient Infusion Center [address] [phone] Ricci Carter MD [address] [place] [address] Keiko Hallman MD 80 [facility] [place] [address] Han Varner RN [address] [place] [address] Carcinoid tumor of ileum, unspecified whether malignant [...] Reading Time Taken Comments Blood Pressure 124/72 06/05/2020 8:47 AM EST Pulse 83 06/05/2020 8:47 AM EST Temperature 36.2 ??C (97.2 ??F) 06/05/2020 8:47 AM ES T Respiratory Rate 16 06/05/2020 8:47 AM EST Oxygen Saturation 100% 06/05/2020 8:47 AM EST Inhaled Oxygen Concentration - - Weight 59.9 kg (132 lb) 06/05/2020 8:47 AM EST Height 160 cm (5' 2.99) 06/05/2020 8:47 AM EST Body Mass Index 23.39 06/05/2020 8:47 AM EST documented in this encounter Plan of Treatment Upcoming Encounters Date Type Department Care Team (Late st Contact Info) Description 11/13/2023 7:45 AM EDT Office Visit [facility] Cancer [place] Medical Oncology at [address] [phone] Ricci Carter MD [address] [place] [address] 11/13/2023 8:30 AM EDT Infusion [facility] Cancer [place] at [facility] Outpatient Infusion Center [place] [address] [place] [phone] Ricci Carter MD [address] [place], [place] [phone] Keiko Hallman MD 80 [facility] [place] [address] 11/20/2023 11:00 AM EDT Appointment [facility] Radiology [place] [facility] [address] [place] [phone] Ricci Carter MD [address] [place], [place] [phone] 11/20/2023 11:30 AM EDT Appointment [facility] Radiology [facility] [facility] [address] [place] [phone] Ricci Carter MD [address] [place], [place] [phone] 03/05/2024 11:00 AM EST Consult [facility] Cardiology [place] [address] [facility] [address] [place] [phone] Ricci Carter MD [address] [place] [address] Jamil Ralph MD [address] [facility] [address] [place], [place] [phone] 05/30/2024 9:00 AM EST Office Visit [facility] Department of Internal Medicine [facility] 1210 [facility] 109 [place], [place] [phone] Consuelo Hobbs PA-C [address] [phone] documented as of this encounter Visit Diagnoses Diagnosis Carcinoid tumor of ileum, unspecified whether malignant (HCC)- Primary documented in this encounter Administered Medications Inactive Administered Medications - up to 1 most recent administrations Medication Order MAR Action Action Date Dose Rate Site octreotide (SandoSTATIN LAR) IM injection 40 mg 40 mg, Intramuscular, Once, On Mon06/05/20 at 1000, For 1 dose, Administer IM intragluteal (avoid deltoid administration). For intraMUSCULAR use ONLY. Must be administered immediately after mixing. Given 06/05/2020 9:14 AM EST 40 mg Other (See Comments) documented in this encounter Care Teams Aboriginal Home [employer] Liaison Officer Relationship Specialty Start Date End Date Consuelo Hobbs PA-C [address] [place] [phone] PCP - General 05/01/19 Madi Sharp MD [address] [place] [address] Gastroenterology 10/02/19 documented as of this encounter
--- OUTSIDE RECORDS SUMMARY | 2023-10-29 17:50 | XMS_ITS | Encounter Summary ---
Author Organization [facility] Address [address] [place] [address] Care Team Providers Care Manager Placement Name Role Phone Consuelo Hobbs PA-C Primary Care Provider Madi Sharp MD Unavailable [phone] Reason for Visit * Episode Based Medications (Routine) - Authorized Specialty Diagnoses / Procedures Referred By Contac t Referred To Contact Diagnoses Carcinoid tumor of ileum, unspecified whether malignant (HCC) Keiko Hallman MD 80 [facility] [place] [address] Med Onc Ci [address] [phone] Referral ID Status Reason Start Date Expiration Date V isits Requested Visits Authorized [id number] Authorized 04/29/2022 11/27/2023 5 2 Encounter Details Date Type Department Care Team (Late st Contact Info) Description 04/16/2020 8:00 AM EST Infusion [facility] [place] [facility] Outpatient Infusion Center [address] [phone] Ricci Carter MD [address] [place] [address] Keiko Hallman MD [address] [place] [address] Oncology [place] [phone] Han Varner, RN [address] [place] [address] No Show Social History Tobacco Use Types Packs/Day Years [...] Visit [facility] Medical Oncology at [address] [phone] Ricci Carter MD [address] [place] [address] 11/13/2023 8:30 AM EDT Infusion [facility] Outpatient Infusion Center [address] [phone] Ricci Carter MD [address] [place] [address] Keiko Hallman MD [address] [place] [address] Oncology Clinic [place] [phone] 11/20/2023 11:00 AM EDT Appointment [facility] Radiology [place] [facility] [address] [place] [phone] Ricci Carter MD [address] [place], [place] [phone] 11/20/2023 11:30 AM EDT Appointment [facility] Radiology [place] [facility] [address] [place] [address] [phone] Ricci Carter MD [address] [place], [place] [phone] 03/05/2024 11:00 AM EST Consult [facility] Cardiology [address] [place] [phone] Ricci Carter MD [address] [place], [place] [phone] Jamil Ralph MD [address] [facility] [address] [place] [address] 05/30/2024 9:00 AM EST Office Visit [facility] Department of Internal Medicine [facility] 1210 [facility] [address] [place] [address] Consuelo Hobbs PA-C [address] [address] documented as of this encounter Visit Diagnoses Not on filedocumented in this encounter Care Teams Manager Placement Relationship Specialty Start Date End Date Consuelo Hobbs PA-C [address] [address] PCP - General 05/01/19 Madi Sharp MD [address] [place] [address] [address] [place] [address] Gastroenterology 10/02/19 documented as of this encounter
--- OUTSIDE RECORDS SUMMARY | 2023-10-29 17:51 | XMS_ITS | Encounter Summary ---
Author Organization [facility] Address [address] [place] [address] Care Team Providers Care Sample Shoe Inspector And Reworker Name Role Phone Consuelo Hobbs PA-C Primary Care Provider Madi Sharp MD Unavailable [phone] Encounter Details Date Type Department Care Team (Latest Contact Info) Description 11/25/2019 Travel Social History Tobacco Use Types Packs/Day [...] have Coronavirus / COVID-19? No / Unsure 11/25/2019 9:04 AM EDT documented as of this encounter Plan of Treatment Upcoming Encounters Date Type Department Care Team (Late st Contact Info) Description 11/13/2023 7:45 AM EDT Office Visit [facility] Cancer [place] Medical Oncology at [address] [phone] Ricci Carter MD [address] [place] [place], [place] [phone] 11/13/2023 8:30 AM EDT Infusion [facility] Cancer [place] [facility] Outpatient Infusion Center [address] [phone] Ricci Carter MD [address] [place], [place] [phone] Keiko Hallman MD 80 [facility] [place] [address] 11/20/2023 11:00 AM EDT Appointment [facility] Radiology [place] Mammography 35 [place] [phone] Ricci Carter MD [address] [place] [address] 11/20/2023 11:30 AM EDT Appointment [facility] Radiology [place] M[facility] 35 [place] [phone] Ricci Carter MD [address] [place], [place] [phone] 03/05/2024 11:00 AM EST Consult [facility] Medical [facility] Cardiology [address] [place] [phone] Ricci Carter MD [address] [place], [place] [phone] Jamil Ralph MD [address] [place] [facility] [address] [place] [address] 05/30/2024 9:00 AM EST Office Visit [facility] Department of Internal Medicine [facility]Note 2] 1210 [facility] [address] [place] [address] Consuelo Hobbs PA-C [address] [address] documented as of this encounter Visit Diagnoses Not on filedocumented in this encounter Care Teams Sample Shoe Inspector And Reworker Relationship Specialty Start Date End Date Consuelo Hobbs PA-C [address] [place] [phone] PCP - General 05/01/19 Madi Sharp MD [address] [place] [address] Gastroenterology 10/02/19 documented as of this encounter
--- OUTSIDE RECORDS SUMMARY | 2023-10-29 17:51 | XMS_ITS | Encounter Summary ---
Author Organization [facility] Address [address] [place] [address] Care Team Providers Care Front End Mechanic Name Role Phone Consuelo Hobbs PA-C Primary Care Provider Madi Sharp MD Unavailable [phone] Reason for Visit * Reason Onset Date Comments Medication Refill 10/14/2019 Encounter Details Date Type Department Care Team (Late st Contact Info) Description 10/14/2019 Nurse Triage [facility] Cancer [place] at [facility] Outpatient Infusion Center [address] [place] [phone] Allison Treviño, RN 80 [place], [place] [phone] Social History Tobacco Use Types Packs/Day Years [...] have Coronavirus / COVID-19? No / Unsure 10/03/2019 8:15 AM EDT documented as of this encounter Miscellaneous Notes * Telephone Encounter - Allison Treviño RN - 10/14/2019 5:25 PM EDT Message sent to Dr. Carter that pt is needing her medical marijuana re-cert by 10/17. He will lookinto it. * Telephone Encounter - Allison Treviño RN - 10/14/2019 5:24 PM EDT Regarding: (TJA) medical Marijuana renewal ----- Message from Sravanthi Haro sent at 10/14/2019 5:03 PM EDT ----- Needs her medical Marijuana re-cert done by 10/18/2019 documented in this encounter Plan of Treatment Upcoming Encounters Date Type Department Care Team (Late st Contact Info) Description 11/13/2023 7:45 AM EDT Office Visit [facility] Medical Oncology at [address] [phone] Ricci Carter MD [address] [place] [address] 11/13/2023 8:30 AM EDT Infusion [facility] Cancer [place] [facility] Outpatient Infusion Center [address] [phone] Ricci Carter MD [address] [place] [address] Keiko Hallman MD 80 [facility] [place] [address] 11/20/2023 11:00 AM EDT Appointment [facility] Radiology [place] Mamm[facility] 35 [place] [phone] Ricci Carter MD [address] [place] [address] 11/20/2023 11:30 AM EDT Appointment [facility] Radiology [place] Mammography [address] [place] [phone] Ricci Carter MD [address] [place] [address] 03/05/2024 11:00 AM EST Consult [facility] Cardiology [place] [address] [facility] [address] [place] [phone] Ricci Carter MD [address] [place], [place] [phone] Jamil Ralph MD [address] [facility] [address] [place] [address] 05/30/2024 9:00 AM EST Office Visit [facility] Department of Internal Medicine [facility] 1210 [facility] [address] [place] [address] Consuelo Hobbs PA-C [address] [address] documented as of this encounter Visit Diagnoses Not on filedocumented in this encounter Care Teams Front End Mechanic Relationship Specialty Start Date End Date Consuelo Hobbs PA-C [address] [place] [address] PCP - General 05/01/19 Madi Sharp MD [address] [address] Gastroenterology 10/02/19 documented as of this encounter
--- OUTSIDE RECORDS SUMMARY | 2023-10-29 17:51 | XMS_ITS | Encounter Summary ---
Author Organization [facility] Address [address] [place] [address] Care Team Providers Care Triple Valve Tester Name Role Phone Consuelo Hobbs PA-C Primary Care Provider Madi Sharp MD Unavailable [phone] Encounter Details Date Type Department Care Team (Late Contact Info) Description 12/25/2019 Scanned Document [facility] Cancer [place] Medical Oncology at [address] [phone] Provider, Dodie, [address] [place] [address] Social History Tobacco Use Types Packs/Day Years [...] 7:45 AM EDT Office Visit [facility] Medical Oncology at [address] [phone] Ricci Carter MD [address] [place] [address] 11/13/2023 8:30 AM EDT Infusion [facility] Cancer [place] [facility] Outpatient Infusion Center [address] [phone] Ricci Carter MD [address] [place], [place] [phone] Keiko Hallman MD 80 [facility] [place] [address] 11/20/2023 11:00 AM EDT Appointment [facility] Radiology [place] Mammography [address] [place] [phone] Ricci Carter MD [address] [place] [phone] 11/20/2023 11:30 AM EDT Appointment [facility] Radiology [place] Mammography [address] [place] [address] [phone] Ricci Carter MD [address] [place] [phone] 03/05/2024 11:00 AM EST Consult [facility] Cardiology [address] [place] [phone] Ricci Carter MD [address] [place], [place] [phone] Jamil Ralph MD [address] [place] [address] 05/30/2024 9:00 AM EST Office Visit [facility] Department of Internal Medicine [facility] 1210 [facility] [address] [place] [address] Consuelo Hobbs PA-C 1210 [facility] 109 [place] [address] documented as of this encounter Visit Diagnoses Not on filedocumented in this encounter Care Teams Triple Valve Tester Relationship Specialty Start Date End Date Consuelo Hobbs PA-C [address] [place] [address] PCP - General 05/01/19 Madi Sharp MD 85 [facility] 1000 [place] [address] Gastroenterology 10/02/19 documented as of this encounter
--- OUTSIDE RECORDS SUMMARY | 2023-10-29 17:51 | XMS_ITS | Encounter Summary ---
Author Organization [facility] Address [address] [place] [address] Care Team Providers Care Public Relations Professional Name Role Phone Consuelo Hobbs PA-C Primary Care Provider Madi Sharp MD Unavailable [phone] Encounter Details Date Type Department Care Team (Latest Contact Info) Description 11/11/2019 Travel Social History Tobacco Use Types Packs/Day [...] have Coronavirus / COVID-19? Unable to assess 11/11/2019 10:50 AM EDT documented as of this encounter Plan of Treatment Upcoming Encounters Date Type Department Care Team (Late st Contact Info) Description 11/13/2023 7:45 AM EDT Office Visit [facility] [place] Medical Oncology at [address] [phone] Ricci Carter MD [address] [place], [place] [phone] 11/13/2023 8:30 AM EDT Infusion [facility] [place] at [facility] [address] [phone] Ricci Carter MD [address] [place], [place] [phone] Keiko Hallman MD 80 [facility] [place] [address] 11/20/2023 11:00 AM EDT Appointment [facility] Radiology [place] [facility] [address] [place] [address] [phone] Ricci Carter MD [address] [place], [place] [phone] 11/20/2023 11:30 AM EDT Appointment [facility] Radiology [place] [facility] [address] [place] [address] [phone] Ricci Carter MD [address] [place] [address] 03/05/2024 11:00 AM EST Consult [facility] Cardiology [address] [place] [address] [phone] Ricci Carter MD [address] [place], [place] [phone] Jamil Ralph MD [address] [facility] [address] [place] [address] 05/30/2024 9:00 AM EST Office Visit [facility] Department of Internal Medicine [place] [phone] [facility] [address] [place] [address] Consuelo Hobbs PA-C [address] [phone] documented as of this encounter Visit Diagnoses Not on filedocumented in this encounter Care Teams Public Relations Professional Relationship Specialty Start Date End Date Consuelo Hobbs PA-C [address] [phone] PCP - General 05/01/19 Madi Sharp MD [address] [place] [address] Gastroenterology 10/02/19 documented as of this encounter
--- OUTSIDE RECORDS SUMMARY | 2023-10-29 17:51 | XMS_ITS | Encounter Summary ---
Author Organization [facility] Address [address] [place] [address] Care Team Providers Care Rn Private Duty Name Role Phone Consuelo Hobbs PA-C Primary Care Provider Madi Sharp MD Unavailable [phone] Encounter Details Date Type Department Care Team (Late Contact Info) Description 11/14/2019 Orders Only [facility] [place] [facility] On[facility] at [facility] 85 [place] [phone] Lilli Peguero APRN 85 [place] [address] Social History Tobacco Use Types Packs/Day Years [...] have Coronavirus / COVID-19? No / Unsure 11/14/2019 8:11 AM EDT documented as of this encounter Plan of Treatment Upcoming Encounters Date Type Department Care Team (Late Contact Info) Description 11/13/2023 7:45 AM EDT Office Visit [facility] Medical Oncology at [address] [phone] Ricci Carter MD [address] [place], [place] [phone] 11/13/2023 8:30 AM EDT Infusion [facility] [place] at [facility]fusion [facility] [address] [phone] Ricci Carter MD [address] [place], [place] [phone] Keiko Hallman MD 80 [facility] [place] [address] 11/20/2023 11:00 AM EDT Appointment [facility] Radiology [place] [facility] [address] [place] [address] [phone] Ricci Carter MD [address] [place], [place] [id number] 11/20/2023 11:30 AM EDT Appointment [facility] Radiology [place] [facility] [address] [place] [phone] Ricci Carter MD [address] [place], [place] [phone] 03/05/2024 11:00 AM EST Consult [facility] Cardiology [address] [place] [address] [phone] Ricci Carter MD [address] [place], [place] [phone] Jamil Ralph MD [address] [place] [address] 05/30/2024 9:00 AM EST Office Visit [facility] Department of Internal Medicine [facility] 1210 [facility] 109 [place] [address] Consuelo Hobbs PA-C 1210 [facility] 109 [place] [address] documented as of this encounter Visit Diagnoses Not on filedocumented in this encounter Care Teams Rn Private Duty Relationship Specialty Start Date End Date Consuelo Hobbs PA-C [address] [place] [address] PCP - General 05/01/19 Madi Sharp MD [address] [address] Gastroenterology 10/02/19 documented as of this encounter
--- OUTSIDE RECORDS SUMMARY | 2023-10-29 17:51 | XMS_ITS | Encounter Summary ---
Author Organization [facility] Address [address] [place] [address] Care Team Providers Care Golf Manager Name Role Phone Consuelo Hobbs PA-C Primary Care Provider Madi Sharp MD Unavailable [phone] Reason for Visit * Reason Onset Date Comments Medication 12/05/2019 Encounter Details Date Type Department Care Team (Late st Contact Info) Description 12/05/2019 Nurse Triage [facility] [place] at [facility]fusion [facility] [address] [place] [phone] Allison Treviño, RN 80 [place] [address] Social History Tobacco Use Types Packs/Day Years [...] have Coronavirus / COVID-19? No / Unsure 12/05/2019 8:17 AM EDT documented as of this encounter Miscellaneous Notes * Telephone Encounter - Allison Treviño RN - 12/05/2019 2:39 PM EDT Returned call to pt and told her that Dr. Chen was pretty sure he had left her a message saying that she was already at the capped dose for Sandostatin so he couldn't increaase it any further. Pt with good understanding. * Telephone Encounter - Allison Treviño RN - 12/05/2019 12:08 PM EDT Regarding: TJA - inj and rx questions ----- Message from Kobe De sent at 12/05/2019 9:19 AM EDT ----- ----- Message from Kobe De sent at 12/05/2019 9:18 AM EDT ----- Patient says during last appt VERNON told her he was going to be increasing her Sandostatin dosage butwhen she went to infusion center she was told there was no change in her treatment, she just wants to confirm that this is correct. Pt was also informed by [facility] pharm that Paregoric rx is permanently discontinued and she would like to know if there is any way she can still get the medication? documented in this encounter Plan of Treatment Upcoming Encounters Date Type Department Care Team (Late st Contact Info) Description 11/13/2023 7:45 AM EDT Office Visit [facility] Medical Oncology at [address] [phone] Ricci Carter MD [address] [place] [address] 11/13/2023 8:[address] [facility] [address] [phone] Ricci Carter MD [address] [place] [address] Keiko Hallman MD 80 [facility] [place] [address] 11/20/2023 11:00 AM EDT Appointment [facility] Radiology [place] [facility] [address] [place] [phone] Ricci Carter MD [address] [place] [address] 11/20/2023 11:30 AM EDT Appointment [facility] Radiology [place] [facility] [address] [place] [phone] Ricci Carter MD [address] [place] [address] 03/05/2024 11:00 AM EST Consult [facility] Cardiology [address] [place] [address] [phone] Ricci Carter MD [address] [place] [address] Jamil Ralph MD [address] [facility] [address] [place] [address] 05/30/2024 9:00 AM EST Office Visit [facility] Department of Internal Medicine [facility] 1210 [facility] [address] [place] [address] Consuelo Hobbs PA-C 1210 [facility] [address] [place] [address] documented as of this encounter Visit Diagnoses Not on filedocumented in this encounter Care Teams Golf Manager Relationship Specialty Start Date End Date Consuelo Hobbs PA-C [address] [address] PCP - General 05/01/19 Madi Sharp MD [address] [place] [address] Gastroenterology 10/02/19 documented as of this encounter
--- OUTSIDE RECORDS SUMMARY | 2023-10-29 17:51 | XMS_ITS | Encounter Summary ---
Author Organization [facility] Address [address] [place] [address] Care Team Providers Care General Administrator Name Role Phone Consuelo Hobbs PA-C Primary Care Provider Madi Sharp MD Unavailable [phone] Encounter Details Date Type Department Care Team (Latest Contact Info) Description 10/03/2019 Travel Social History Tobacco Use Types Packs/Day [...] EDT Office Visit [facility] [place] Medical Oncology at [address] [phone] Ricci Carter MD [address] [place], [place] [phone] 11/13/2023 8:30 AM EDT Infusion [facility] [place] at [facility] Outpatient Infusion Center [address] [phone] Ricci Carter MD [address] [place], [place] [phone] Keiko Hallman MD 80 [facility] [place] [address] 11/20/2023 11:00 AM EDT Appointment [facility] Radiology [place] Mammography [address] [place] [phone] Ricci Carter MD [address] [place] [address] 11/20/2023 11:30 AM EDT Appointment [facility] Radiology [place] Mammography [address] [place] [phone] Ricci Carter MD [address] [place], [place] [phone] 03/05/2024 11:00 AM EST Consult [facility] Medical [facility] Cardiology [address] [place] [address] [phone] Ricci Carter MD [address] [place], [place] [phone] Jamil Ralph MD [address] [facility] [address] [place] [address] 05/30/2024 9:00 AM EST Office Visit [facility] Department of Internal Medicine [facility] 1210 [facility] [address] [place] [address] Consuelo Hobbs PA-C [address] [address] documented as of this encounter Visit Diagnoses Not on filedocumented in this encounter Care Teams General Administrator Relationship Specialty Start Date End Date Consuelo Hobbs PA-C [address] [place] [phone] PCP - General 05/01/19 Madi Sharp MD [address] [place] [address] Gastroenterology 10/02/19 documented as of this encounter
--- OUTSIDE RECORDS SUMMARY | 2023-10-29 17:51 | XMS_ITS | Encounter Summary ---
Author Organization [facility] [place] Address [address] [place] [address] Care Team Providers Care Research Advisor Name Role Phone Consuelo Hobbs PA-C Primary Care Provider Madi Sharp MD Unavailable [phone] Reason for Visit * Reason Comments Follow-up ileal carcinoid Encounter Details Date Type Department Care Team (Late st Contact Info) Description 10/02/2019 1:05 PM EDT Office Visit [facility] [place] [place] Medical Oncology at [address] [phone] Keiko Hallman MD [address] [facility] [place] [address] Carcinoid tumor of ileum, unspecified whether malignant [...] have Coronavirus / COVID-19? No / Unsure 10/02/2019 1:24 PM EDT documented as of this encounter Last Filed Vital Signs Vital Sign Reading Time Taken Comments Blood Pressure 120/83 10/02/2019 1:22 PM EDT Pulse 80 10/02/2019 1:22 PM EDT Temperature 36.5 ??C (97.7 ??F) 10/02/2019 1:22 PM ED T Respiratory Rate 16 10/02/2019 1:22 PM EDT Oxygen Saturation 98% 10/02/2019 1:22 PM EDT Inhaled Oxygen Concentration - - Weight 59.3 kg (130 lb 11.2 oz) 10/02/2019 1:22 PM EDT Height - - Body Mass Index 23.16 09/26/2019 2:32 PM EDT documented in this encounter Progress Notes * Keiko Hallman MD - 10/02/2019 1:49 PM EDT Medical Oncology Progress Note Outpatient Name: Rody Sotelo Age: 49 y.o. Sex: female Healthcare Team: CATHI Palacios Subjective Chief Complaint: Chief Complaint Patient presents with ??? Follow-up ileal carcinoid Rody Sotelo presents today for f/u prior to octreotide for ileal carcinoid History of Present Illness Doing well, no new issues or problems Cancer Staging No matching staging information was found for the patient. No history exists. ROS: Review of Systems Constitutional: Negative for chills and fever. HENT: Positive for sore throat (mild last week). Respiratory: Negative for cough and shortness of breath. Cardiovascular: Negative for chest pain. Objective Past History Past Medical History: Diagnosis Date ??? Cancer (HCC) ??? IBS (irritable bowel syndrome) ??? Migraines Past Surgical History: Procedure Laterality Date ??? [...] illness Maternal Aunt ??? Tuberculosis Maternal Grandfather Health Maintenance Topic Date Due ??? Pap Smear (Ages 21-65) 1993 ??? Influenza Vaccine 12/03/2019 Allergies Allergies Allergen Reactions ??? Levaquin [Levofloxacin] Myalgia/Myositis/Arthralgia/Arthritis ??? Cefaclor GI Intolerance/Nausea/Vomiting ??? Erythromycin GI Intolerance/Nausea/Vomiting Medications Current Outpatient Medications Medication Sig Note Dispense Refill ??? calcium carbonate (OS-ANGELICA) 600 MG tablet Take 600 mg by mouth every morning with breakfast. ??? Cannabis (MARIJUANA) Misc Medical Prescription Strength as needed. ??? colestipol (COLESTID) 1 g tablet Take 2 tablets (2 g total) by mouth 2 (two) times a day. With a large glass of water. 120 tablet 1 ??? CREON [address] Particles capsule 36,000 Units 3 (three) times a day with meals. 08/14/2015: Received from: External Pharmacy ??? ergotamine-caffeine (CAFERGOT) 1-100 MG per tablet TAKE 1 TABLET BY MOUTH TWICE DAILY [id number] tablet 3 ??? famotidine (PEPCID) 40 MG tablet Take 40 mg by mouth 2 (two) times a day. ??? granisetron (KYTRIL) 1 MG tablet Take 1 mg by mouth daily. ??? loperamide (IMODIUM A-D) 2 MG capsule Take 2 mg by mouth 4 (four) times a day as needed for diarrhea. ??? Multiple Vitamin tablet Take 1 tablet by mouth daily. ??? octreotide (SandoSTATIN LAR) 10 MG IM injection Inject 10 mg into the shoulder, thigh, or buttocks every 28 days (4 weeks). ??? paregoric 2 MG/5ML solution 10/02/2019: On backorder at this time ??? rizatriptan (MAXALT-[employer] DISTRICT MANAGER) 10 MG disintegrating tablet DISSOLVE ONE TABLET BY MOUTH EVERY DAY NEEDED 9 tablet 0 ??? Vitamin D3 (CHOLECALICEROL) 50 MCG (2000 UT) tablet Take 2,000 Units by mouth daily. ??? morphine (ROXANOL) 10 mg/5 mL solution TK 2.5 TO 5 ML PO Q 6 H PRF DH ??? rifAXimin (XIFAXAN) 550 MG tablet Take 1 tablet (550 mg total) by mouth every 8 (eight) hours around the clock. 42 tablet 0 ??? pbkovh-fnmtmlyig-ffyvrkegh sulfates (Suprep Bowel Prep Kit) 17.5-3.13-1.6 GM/177ML Solution solution Take 177 mL by mouth twice daily (every 12 hours). 177 mL 0 Physical Exam: Vitals: 10/02/19 1322 BP: 120/83 BP Location: Left arm Pulse: 80 Resp: 16 Temp: 97.7 ??F (36.5 ??C) TempSrc: Skin SpO2: 98% Weight: 59.3 kg (130 lb 11.2 oz) Performance status: ECOG (0) Fully active, able to carry on all predisease performance without restriction Physical Exam Constitutional: She appears well-developed and well-nourished. No distress. Eyes: No scleral icterus. Cardiovascular: Normal rate, regular rhythm and normal heart sounds. Pulmonary/Chest: Effort normal and breath sounds normal. No respiratory distress. She has no wheezes. She has no rales. Vitals reviewed. Relevant data reviewed: Labs, Pathology, Notes, Meds, Radiology Chemistry Component Value Date/Time NA 139 10/14/2017926 K 4.2 10/14/2017 09 CL 101 10/14/2017 09 CO2 28 10/14/2017 09 BUN 10 10/14/2017 09 CREAT 0.7 10/14/2017926 Component Value Date/Time CALCIUM 9.0 10/14/2017 09 ALKPHOS 55 10/14/2017 09 AST 31 10/14/2017 09 ALT 17 10/14/2017 09 BILITOT 0.3 10/14/2017 09 Imaging Studies: No results found for this or any previous visit. Assessment Carcinoid tumor of ileum Plan Will give octreotide tomorrow am and then schedule q [address] Carter on 11/25/19 Colonoscopy planned for 12/2019 No orders of the defined types were placed in this encounter. documented in this encounter Plan of Treatment Upcoming Encounters Date Type Department Care Team (Late st Contact Info) Description 11/13/2023 7:45 AM EDT Office Visit [facility] [place] [facility] Oncology at [address] [phone] Ricci Carter MD [address] [place], [place] [phone] 11/13/2023 8:30 AM EDT Infusion [facility] [place] at [facility] Outpatient Infusion Center [address] [phone] Ricci Carter MD [address] [place], [place] [phone] Keiko Hallman MD 80 [facility] [place] [address] 11/20/2023 11:00 AM EDT Appointment [facility] Radiology [place] M[facility]ography [address] [place] [phone] Ricci Carter MD [address] [place], [place] [phone] 11/20/2023 11:30 AM EDT Appointment [facility] Radiology [place] Mammography [address] [place] [phone] Ricci Carter MD [address] [place], [place] [address] 03/05/2024 11:[address] [facility] Cardiology [address] [place] [phone] Ricci Carter MD [address] [place], [place] [phone] Jamil Ralph MD [address] [facility] [address] [place] [address] 05/30/2024 9:00 AM EST Office Visit [facility] [address] [facility] 109 [place] [address] Consuelo Hobbs PA-C [address] [phone] documented as of this encounter Visit Diagnoses Diagnosis Carcinoid tumor of ileum, unspecified whether malignant (HCC)- Primary documented in this encounter Care Teams Research Advisor Relationship Specialty Start Date End Date Consuelo Hobbs PA-C [address] [place] [address] PCP - General 05/01/19 Madi Sharp MD [address] [place] [address] Gastroenterology 10/02/19 documented as of this encounter
--- OUTSIDE RECORDS SUMMARY | 2023-10-29 17:51 | XMS_ITS | Encounter Summary ---
Author Organization [facility] Address [address] [place] [address] Care Team Providers Care Bench Worker Hollow Handle Name Role Phone Consuelo Hobbs PA-C Primary Care Provider Madi Sharp MD Unavailable [phone] Encounter Details Date Type Department Care Team (Latest Contact Info) Description 12/05/2019 Travel Social History Tobacco Use Types Packs/Day [...] Visit [facility] Cancer [place] Medical Oncology at [address] [phone] Ricci Carter MD [address] [place], [place] [phone] 11/13/2023 8:30 AM EDT Infusion [facility] Cancer [place] at [facility] Outpatient Infusion Center [address] [phone] Ricci Carter MD [address] [place], [place] [phone] Keiko Hallman MD 80 [facility] [place] [address] 11/20/2023 11:00 AM EDT Appointment [facility] Radiology Sh[place] Mammography 35 [place] [phone] Ricci Carter MD [address] [place] [address] 11/20/2023 11:30 AM EDT Appointment [facility] Radiology [place] Mammography 35 [place] [phone] Ricci Carter MD [address] [place], [place] [phone] 03/05/2024 11:00 AM EST Consult [facility] Medical [facility] Cardiology [address] [place] [phone] Ricci Carter MD [address] [place], [place] [phone] Jamil Ralph MD [address] [place] [facility] [address] [place] [address] 05/30/2024 9:00 AM EST Office Visit [facility] Department of Internal Medicine [facility] 1210 [facility] [address] [place] [address] Consuelo Hobbs PA-C [address] [address] documented as of this encounter Visit Diagnoses Not on filedocumented in this encounter Care Teams Bench Worker Hollow Handle Relationship Specialty Start Date End Date Consuelo Hobbs PA-C [address] [place] [phone] PCP - General 05/01/19 Madi Sharp MD [address] [place] [address] Gastroenterology 10/02/19 documented as of this encounter
--- OUTSIDE RECORDS SUMMARY | 2023-10-29 17:51 | XMS_ITS | Encounter Summary ---
Author Organization [facility] Address 100 [place] [address] Care Team Providers Care Bryologist Name Role Phone Consuelo Hobbs PA-C Primary Care Provider Madi Sharp MD Unavailable [phone] Encounter Details Date Type Department Care Team (Late st Contact Info) Description 12/16/2019 Scanned Document [facility] [address] [facility] [place] [address] Madi Sharp MD 300 [place], [place] [address] Social History Tobacco Use Types Packs/Day Years [...] have Coronavirus / COVID-19? Unable to assess 12/10/2019 10:33 AM EDT documented as of this encounter Plan of Treatment Upcoming Encounters Date Type Department Care Team (Late st Contact Info) Description 11/13/2023 7:45 AM EDT Office Visit [facility] Medical Oncology at [address] [phone] Ricci Carter MD [address] [place] [address] 11/13/2023 8:30 AM EDT Infusion [facility] Cancer [place] at [facility] Outpatient Infusion Center [address] [phone] Ricci Carter MD [address] [place] [place], [place] [phone] Keiko Hallman MD 80 [facility] [place] [address] 11/20/2023 11:00 AM EDT Appointment [facility] Radiology [place] Mammography [address] [place] [phone] Ricci Carter MD [address] [place], [place] [phone] 11/20/2023 11:30 AM EDT Appointment [facility] Radiology [place] [facility]amm[facility] [address] [place] [address] [phone] Ricci Carter MD [address] [place] [phone] 03/05/2024 11:00 AM EST Consult [facility] Cardiology [address] [place] [phone] Ricci Carter MD [address] [place], [place] [phone] Jamil Ralph MD [address] [place] [address] 05/30/2024 9:00 AM EST Office Visit [facility] Department of Internal Medicine [facility] 1210 [facility] 109 [place] [address] Consuelo Hobbs PA-C 1210 [facility] 109 [place] [address] documented as of this encounter Procedures Procedure Name Priority Date/Time Associated Diagnosis Comments PATHOLOGY REPORT 12/16/2019 12:0 0 AM EDT documented in this encounter Results * (REPORT) PATHOLOGY REPORT (12/16/2019 12:00 AM EDT) Madi Sharp MD PATHOLOGY/CYTOLOGY O LINETTEERAREJI documented in this encounter Visit Diagnoses Not on filedocumented in this encounter Care Teams Bryologist Relationship Specialty Start Date End Date Consuelo Hobbs PA-C [address] [place] [address] PCP - General 05/01/19 Madi Sharp MD 85 [facility] [address] [place] [address] Gastroenterology 10/02/19 documented as of this encounter
--- OUTSIDE RECORDS SUMMARY | 2023-10-29 17:51 | XMS_ITS | Encounter Summary ---
Author Organization [facility] Address [address] [place] [address] Care Team Providers Care Customer Experience Retail Clerk Name Role Phone Consuelo Hobbs PA-C Primary Care Provider Madi Sharp MD Unavailable [phone] Reason for Referral * Diagnostic Imaging (Routine) - Closed Specialty Diagnoses / Procedures Referred By Contac t Referred To Contact Diagnoses Carcinoid tumor of ileum (HCC) Procedures MRI Pelvis w w/o contrast Ricci Carter MD [address] [place] [facility] Referral ID Status Reason Start Date Expiration Date Visits Re quested Visits Authorized [id number] Closed 12/10/2019 02/08/2020 1 1 * Diagnostic Imaging (Routine) - Closed Specialty Diagnoses / Procedures Referred By Contac t Referred To Contact Diagnoses Carcinoid tumor of ileum (HCC) Procedures MRI Abdomen w w/o contrast Ricci Carter MD [address] [place] [address] [facility] Referral ID Status Reason Start Date Expiration Date Visits Re quested Visits Authorized [id number] Closed 12/10/2019 02/08/2020 1 1 Encounter Details Date Type Department Care Team (Late st Contact Info) Description 11/25/2019 8:45 AM EDT Office Visit [facility] [place]: Oncology and Hematology [address] [phone] Ricci Carter MD [address] [place] [address] Carcinoid tumor of ileum (Primary Dx); Oncology follow-up encounter; Encounter for monitoring octreotide therapy; Prescription refill; Diarrhea, unspecified type; Medical certificate issuance; Palpitations Social History Tobacco Use Types Packs/Day [...] Sign Reading Time Taken Comments Blood Pressure 119/79 11/25/2019 8:41 AM EDT Pulse 77 11/25/2019 8:41 AM EDT Temperature 36 ??C (96.8 ??F) 11/25/2019 8:41 AM EDT Respiratory Rate - - Oxygen Saturation 95% 11/25/2019 8:41 AM EDT Inhaled Oxygen Concentration - - Weight 60.8 kg (134 lb) 11/25/2019 8:41 AM EDT Height - - Body Mass Index 23.74 10/03/2019 8:00 AM EDT documented in this encounter Progress Notes * Ricci Carter MD - 11/25/2019 8:45 AM EDT Images from the original note were not included. Medical Oncology/Hematology Progress Note Healthcare Team: CATHI Palacios Subjective: Date of visit is: November 25, 2019 Rody Sotelo is a 49 y.o. female who presents here today for a follow- up visit regarding carcinoid. ONCOLOGY HISTORY: Interim History: She is receiving Sandostatin LAR. Her last dose (40 mg) was administered on November 14, 2019. She started to have palpitations about 1-1.5 months ago. Multiple times per day, with runs for one hour. She reports no chest pain. Sometimes gets dizzy when she has palpitations. She is drinking 4-5cups coffee at night. Had EKG by PCP and no concerns. Regarding her diarrhea, remains about the same. She feels it is well managed. She is having 4-5 stools per day. Soft, not formed. Taking colestipol, not not compliant. At least taking once per day. Taking Kytril and Creon. Taking loperamide, 6-12 tabs per day. She never took Xifaxan. Tried 2.5 mL of MSO4 with no effect, 5 mL makes her drowsy. Break through Octreotide, one dose every couple of weeks. Occasional abdominal cramping. Nausea and vomiting with cramping. She reports no flushing. Pain: 0 REVIEW OF SYSTEMS: Review of Systems Constitutional: Negative for appetite change and unexpected weight change. HENT: Negative for mouth sores and nosebleeds. Respiratory: Negative for cough and shortness of breath. Cardiovascular: Negative for leg swelling. Gastrointestinal: Negative for blood in stool. Musculoskeletal: Negative for back pain. Neurological: Positive for headaches (migraines unchanged). Hematological: Does not bruise/bleed easily. The remainder [...] glass of water., Disp: 120 tablet, Rfl: 1 ??? CREON [address] Particles capsule, 36,000 Units [...] (4 weeks)., Disp: , Rfl: ??? rizatriptan (MAXALT-AIRCRAFT LANDING GEAR INSPECTOR) 10 MG disintegrating tablet, DISSOLVE ONE TABLET [...] flushing)., Disp: 90 mL, Rfl: 11 ??? rifAXimin (XIFAXAN) 550 MG tablet, Take 1 tablet (550 mg total) by mouth every 8 (eight) hours around the clock., Disp: 42 tablet, Rfl: 0 ??? iitlim-ztpzuuzeh-eqyhbgbsp sulfates (Suprep Bowel Prep Kit) 17.5-3.13-1.6 GM/177ML Solution solution, Take 177 mL by mouth twice daily (every 12 hours)., Disp: 177 mL, Rfl: 0 Past Medical History Past Medical History: Diagnosis Date ??? Cancer (HCC) ??? IBS (irritable bowel syndrome) ??? Migraine 11/25/2019 ??? Migraines Past Surgical History Past Surgical History: Procedure [...] Objective: Wt Readings from Last 2 Encounters: 11/25/19 60.8 kg (134 lb) 11/14/19 61.7 kg (136 lb) . Physical Exam Vitals: 11/25/19 0841 BP: 119/79 BP Location: Right arm Pulse: 77 Temp: 96.8 ??F (36 ??C) TempSrc: Skin SpO2: 95% Weight: 60.8 kg (134 lb) Performance status: ECOG (0) Fully active, able to carry on all predisease performance without restriction Physical Exam Constitutional: She is oriented to person, place, and time. She appears well- developed and well-nourished. No distress. HENT: Head: Atraumatic. Mouth/Throat: No oropharyngeal exudate. Eyes: Pupils are equal, round, and reactive [...] guarding. Musculoskeletal: Normal range of motion. Lymphadenopathy: She has no cervical adenopathy. She has no axillary adenopathy. Neurological: She is alert and oriented to person, place, and time. She has normal reflexes. No cranial nerve deficit. Skin: Skin is warm and dry. No rash noted. No erythema. No pallor. Psychiatric: She has a normal mood and affect. Her behavior is normal. Judgment and thought contentnormal. Results: - August 16, 2019 creatinine 0.5 WBC 70-90, hemoglobin 12.9, platelets 212,000 AST 28, ALT 19, alkaline phosphatase 70, total bilirubin 0.4 Assessment/Plan: 1. Carcinoid, oL1H2Q3 A. Diagnosed July 11, 2013 1. S/p small bowel resection and right hemicolectomy a. Path- well- differentiated neuroendocrine tumor B. Receiving Sandostatin LAR, initiated October 17, 2013 In summary, Rody is a 49 y.o. female with a PMHx significant for: migraines, PCOS, IBS and PVCs whopresents here today for a follow- up visit regarding carcinoid. She continues to receive Sandostatin LAR 40 mg every 3 weeks with her last dose administered on November 14, 2019. She now has had 1-1.5 months of palpitations. While her diarrheal symptoms remain unchanged, I still do not think her diarrhea is optimally managed. I do think that in part some of her symptoms may be dietary provoked (i.e. caffeine) and possibly alcohol related. I recommended continuing Sandostatin LAR 40 mg IM every 3 weeks with her next dose to be administered 12/05/2019. I have also recommended she take colestipol regularly and use multiple doses per day. Also, continue the following: Granisetron, medical marijuana, and loperamide as needed. She will also continue to use short acting octreotide as needed. I have also discussed careful dietary discretion. She tells me she is aware of her dietary triggers. Recommended she cut back on her caffeine intake, which should help her diarrhea and possibly palpitations. Labs and re- staging MRIs ordered. Colonoscopy scheduled for December 16, 2019. Labs done two weeks ago (I will try to get those). I have ordered others. She will see food adviser ([facility]) at the end of the month for her palpitations. 2. Renewal of certification She continues to use medical marijuana, which is helping to manage her diarrhea with good effect. Zahraa renewed her certification. Orders Placed This Encounter Procedures ??? MRI Abdomen w w/o contrast Standing Status: Future Number of Occurrences: 1 Standing Expiration Date: 11/24/2020 Order Specific Question: Reason for Exam: Answer: re- staging carcinoid assess for change ??? MRI Pelvis w w/o contrast Standing Status: Future Number of Occurrences: 1 Standing Expiration Date: 11/24/2020 Order Specific Question: Reason for Exam: Answer: re- staging carcinoid, assess for change ??? Chromogranin A - [facility] Standing Status: Future Number of Occurrences: 1 Standing Expiration Date: 11/24/2020 ??? 5-HIAA (Serotonin), Creatinine, Urine, 24 Hour Standing Status: Future Number of Occurrences: 1 Standing Expiration Date: 11/24/2020 ??? Serotonin Level, Serum Standing Status: Future Number of Occurrences: 1 Standing Expiration Date: 11/24/2020 ??? TSH, Highly Sensitive Standing Status: Future Number of Occurrences: 1 Standing Expiration Date: 11/24/2020 ??? T4, Free Standing Status: Future Number of Occurrences: 1 Standing Expiration Date: 11/24/2020 ??? Vitamin B12 - [facility] Standing Status: Future Number of Occurrences: 1 Standing Expiration Date: 11/24/2020 The patient will return in 6 weeks. There are no Patient Instructions on file for this visit. documented in this encounter Plan of Treatment Upcoming Encounters Date Type Department Care Team (Late st Contact Info) Description 11/13/2023 7:45 AM EDT Office Visit [facility] Medical Oncology at [address] [phone] Ricci Carter MD [address] [place] [address] 11/13/2023 8:30 AM EDT Infusion [facility] at [facility] [address] [phone] Ricci Carter MD [address] [place] [address] Keiko Hallman MD 80 [facility] [place] [address] 11/20/2023 11:00 AM EDT Appointment [facility] Radiology [facility] [address] [place] [phone] Ricci Carter MD [address] [place], [place] [id number] 11/20/2023 11:30 AM EDT Appointment [facility] Radiology [facility] [address] [place] [phone] Ricci Carter MD [address] [place], [place] [id number] 03/05/2024 11:00 AM EST Consult [facility] Cardiology [address] [place] [phone] Ricci Carter MD [address] [place], [place] [phone] Jamil Ralph MD [address] [facility] [address] [place], [place] [phone] 05/30/2024 9:00 AM EST Office Visit [facility] Department of Internal Medicine [address] [place] [address] Consuelo Hobbs PA-C 1210 [facility] [address] [place] [address] Scheduled Orders Name Type Priority Associated Diagnoses Orde r Schedule MRI Abdomen w w/o contrast Imaging Routine Carcinoid tumor of ileum Expected: 11/25/2019, Expires: 11/24/2020 MRI Pelvis w w/o contrast Imaging Routine Carcinoid tumor of ileum Expected: 11/25/2019, Expires: 11/24/2020 Chromogranin A - [facility] Routine Carcinoid tumor of ileum Expected: 11/25/2019, Expires: 11/24/2020 5-HIAA (Serotonin), Creatinine, Urine, 24 Hour Lab Routine Carcinoid tumor of ileum Expected: 11/25/2019, Expires: 11/24/2020 Serotonin Level, Serum Lab Routine Carcinoid tumor of ileum Expected: 11/25/2019, Expires: 11/24/2020 TSH, Highly Sensitive Lab Routine Carcinoid tumor of ileum Expected: 11/25/2019, Expires: 11/24/2020 T4, Free Lab Routine Carcinoid tumor of ileum Expected: 11/25/2019, Expires: 11/24/2020 Vitamin B12 - [facility] Lab Routine Carcinoid tumor of ileum Expected: 11/25/2019, Expires: 11/24/2020 documented as of this encounter Visit Diagnoses Diagnosis Carcinoid tumor of ileum (HCC)- Primary Oncology follow-up encounter Encounter for monitoring octreotide therapy Prescription refill Issue of repeat prescriptions Diarrhea, unspecified type Medical certificate issuance Other issue of medical certificates Palpitations documented in this encounter Care Teams Customer Experience Retail Clerk Relationship Specialty Start Date End Date Consuelo Hobbs PA-C 1210 [facility] [address] [place] [address] PCP - General 05/01/19 Madi Sharp MD [address] [place] [address] Gastroenterology 10/02/19 documented as of this encounter
--- OUTSIDE RECORDS SUMMARY | 2023-10-29 17:51 | XMS_ITS | Encounter Summary ---
Author Organization [facility] Address [address] [place] [address] Care Team Providers Care Corporate Compliance Director Name Role Phone Consuelo Hobbs PA-C Primary Care Provider Madi Sharp MD Unavailable [phone] Encounter Details Date Type Department Care Team (Latest Contact Info) Description 10/02/2019 Travel Social History Tobacco Use Types Packs/Day [...] Description 11/13/2023 7:45 AM EDT Office Visit [facility] [place] Medical Oncology at [address] [phone] Ricci Carter MD [address] [place], [place] [phone] 11/13/2023 8:30 AM EDT Infusion [facility] [place] at [facility]fusion [facility] [address] [phone] Ricci Carter MD [address] [place], [place] [phone] Keiko Hallman MD 80 [facility] [place] [address] 11/20/2023 11:00 AM EDT Appointment [facility] Radiology [facility] [address] [place] [phone] Ricci Carter MD [address] [place] [address] 11/20/2023 11:30 AM EDT Appointment [facility] Radiology [facility] [address] [place] [phone] Ricci Carter MD [address] [place], [place] [id number] 03/05/2024 11:00 AM EST Consult [facility] Medical [facility] Cardiology [address] [place] [phone] Ricci Carter MD [address] [place], [place] [phone] Jamil Ralph MD [address] [facility] [address] [place] [address] 05/30/2024 9:00 AM EST Office Visit [facility] Department of Internal Medicine [facility] 1210 [facility] [place] [facility] [address] [place] [address] Consuelo Hobbs PA-C [address] [address] documented as of this encounter Visit Diagnoses Not on filedocumented in this encounter Care Teams Corporate Compliance Director Relationship Specialty Start Date End Date Consuelo Hobbs PA-C [address] [place] [phone] PCP - General 05/01/19 Madi Sharp MD [address] [place] [address] Gastroenterology 10/02/19 documented as of this encounter
--- OUTSIDE RECORDS SUMMARY | 2023-10-29 17:51 | XMS_ITS | Encounter Summary ---
Author Organization [facility] Address [address] [place] [address] Care Team Providers Care Manufacturing Support Engineer Name Role Phone Consuelo Hobbs PA-C Primary Care Provider Madi Sharp MD Unavailable [phone] Encounter Details Date Type Department Care Team (Late Contact Info) Description 12/25/2019 Orders Only [facility] [place]: Oncology and Hematology [address] [place] [address] Ricci Carter MD [address] [place] [address] Social History Tobacco Use Types Packs/Day Years [...] Visit [facility] Medical Oncology at [address] [phone] Ricci Carter MD [address] [place], [place] [phone] 11/13/2023 8:30 AM EDT Infusion [facility] [place] at [facility] Outpatient Infusion Center [address] [phone] Ricci Carter MD [address] [place], [place] [phone] Keiko Hallman MD 80 [facility] [place] [address] 11/20/2023 11:00 AM EDT Appointment [facility] Radiology [facility] [address] [place] [phone] Ricci Carter MD [address] [place], [place] [phone] 11/20/2023 11:30 AM EDT Appointment [facility] Radiology [facility] [address] [place] [phone] Ricci Carter MD [address] [place], [place] [id number] 03/05/2024 11:00 AM EST Consult [facility] Cardiology [address] [place] [phone] Ricci Carter MD [address] [place], [place] [phone] Jamil Ralph MD [address] [place] [address] 05/30/2024 9:00 AM EST Office Visit [facility] Department of Internal Medicine [facility] 1210 [facility] 109 [place] [address] Consuelo Hobbs PA-C 1210 [facility] [address] [place] [address] documented as of this encounter Visit Diagnoses Not on filedocumented in this encounter Care Teams Manufacturing Support Engineer Relationship Specialty Start Date End Date Consuelo Hobbs PA-C [address] [place] [address] PCP - General 05/01/19 Madi Sharp MD [address] [address] Gastroenterology 10/02/19 documented as of this encounter
--- OUTSIDE RECORDS SUMMARY | 2023-10-29 17:51 | XMS_ITS | Encounter Summary ---
Author Organization [facility] Address [address] [place] [address] Care Team Providers Care Pyrotechnics Press Tender Name Role Phone Consuelo Hobbs PA-C Primary Care Provider Madi Sharp MD Unavailable [phone] Encounter Details Date Type Department Care Team (Late st Contact Info) Description 10/21/2019 Telephone [facility] [address] [place] [address] Madi Sharp MD [address] [place] [phone] Social History Tobacco Use Types Packs/Day Years [...] have Coronavirus / COVID-19? No / Unsure 10/24/2019 8:21 AM EDT documented as of this encounter Miscellaneous Notes * Telephone Encounter - Malina Villaseñor - 10/25/2019 10:49 AM EDT Thank you Keishla. [place] * Telephone Encounter - Janneth Villarreal - 10/25/2019 9:45 AM EDT Consuelo Hobbs CANAL EQUIPMENT MECHANIC office called requesting copy of last colonoscopy done in 2018. PCP confirmed in system, Faxed over report to [phone] for continuity of care in PCP office. FYI. * Telephone Encounter - Malina Villaseñor - 10/21/2019 2:18 PM EDT Faxed cover sheet patient colonoscopy is scheduled on 12/16/2019 * Telephone Encounter - Lilli Robledo MA - 10/21/2019 1:03 PM EDT PCPs office, Dr. Hobbs, left voicemail requesting pt's last colon report. Pls fax report to [phone]. documented in this encounter Plan of Treatment Upcoming Encounters Date Type Department Care Team (Late st Contact Info) Description 11/13/2023 7:45 AM EDT Office Visit [facility] Medical Oncology at [address] [phone] Ricci Carter MD [address] [place] [address] 11/13/2023 8:30 AM EDT Infusion [facility] [place] at [facility] Outpatient Infusion Center [address] [phone] Ricci Carter MD [address] [place] [address] Keiko Hallman MD 80 [facility] [place] [address] 11/20/2023 11:00 AM EDT Appointment [facility] Radiology [place] [facility] [address] [place] [phone] Ricci Carter MD [address] [place] [address] 11/20/2023 11:30 AM EDT Appointment [facility] Radiology [place] [facility] [address] [place] [phone] Ricci Carter MD [address] [place], [place] [phone] 03/05/2024 11:00 AM EST Consult [facility] Cardiology [address] [place] [phone] Ricci Carter MD [address] [place] [address] Jamil Ralph MD [address] [place] [facility] [address] [place] [address] 05/30/2024 9:00 AM EST Office Visit [facility] Department of Internal Medicine [facility] 1210 [facility] [address] [place] [phone] Consuelo Hobbs PA-C 1210 [facility] [address] [place] [address] documented as of this encounter Visit Diagnoses Not on filedocumented in this encounter Care Teams Pyrotechnics Press Tender Relationship Specialty Start Date End Date Consuelo Hobbs PA-C [address] [address] PCP - General 05/01/19 Madi Sharp MD [address] [address] Gastroenterology 10/02/19 documented as of this encounter
--- OUTSIDE RECORDS SUMMARY | 2023-10-29 17:51 | XMS_ITS | Encounter Summary ---
Author Organization [facility] Address [address] [place] [address] Care Team Providers Care Fire Adjuster Name Role Phone Consuelo Hobbs PA-C Primary Care Provider Madi Sharp MD Unavailable [phone] Encounter Details Date Type Department Care Team (Late Contact Info) Description 01/08/2020 Scanned Document [facility] [place] [address] [phone] Cardiology, Scan Social History Tobacco Use Types Packs/Day Years [...] EDT Office Visit [facility] [place] Medical Oncology at [address] [phone] Ricci Carter MD [address] [place] [address] 11/13/2023 8:30 AM EDT Infusion [facility] [place] at [facility] Outpatient Infusion Center [address] [phone] Ricci Carter MD [address] [place], [place] [phone] Keiko Hallman MD 80 [facility] [place] [address] 11/20/2023 11:00 AM EDT Appointment [facility] Radiology [facility] [address] [place] [phone] Ricci Carter MD [address] [place], [place] [phone] 11/20/2023 11:30 AM EDT Appointment [facility] Radiology [facility] [address] [place] [phone] Ricci Carter MD [address] [place] [address] 03/05/2024 11:00 AM EST Consult [facility] Cardiology [place] [address] [facility] [address] [place] [phone] Ricci Carter MD [address] [place] [address] Jamil Ralph MD [address] [place] [facility] [address] [place], [place] [phone] 05/30/2024 9:00 AM EST Office Visit [facility] Department of Internal Medicine [facility] [address] [place] [phone] Consuelo Hobbs PA-C [address] [place] [phone] documented as of this encounter Visit Diagnoses Not on filedocumented in this encounter Care Teams Fire Adjuster Relationship Specialty Start Date End Date Consuelo Hobbs PA-C [address] [place] [phone] PCP - General 05/01/19 Madi Sharp MD [address] [place] [address] Gastroenterology 10/02/19 documented as of this encounter
--- OUTSIDE RECORDS SUMMARY | 2023-10-29 17:51 | XMS_ITS | Encounter Summary ---
Author Organization [facility] Address [address] [place] [address] Care Team Providers Care Manager Clinical Research Name Role Phone Consuelo Hobbs PA-C Primary Care Provider Madi Sharp MD Unavailable [phone] Encounter Details Date Type Department Care Team (Late Contact Info) Description 12/12/2019 8:00 AM EDT Lab [place] COVID-19 Testing Trailer [address] [place] [address] Madi Sharp MD [address] [place] [address] Benign carcinoid tumor of the ileum Social History Tobacco Use Types Packs/Day [...] Visit [facility] Medical Oncology at [address] [phone] Ricci Carter MD [address] [place], [place] [phone] 11/13/2023 8:30 AM EDT Infusion [facility] [place] [facility] Out[facility] Infusion Center [address] [phone] Ricci Carter MD [address] [place], [place] [phone] Keiko Hallman MD 80 [facility] [place] [address] 11/20/2023 11:00 AM EDT Appointment [facility] Radiology Shay Mammography [address] [place] [address] [phone] Ricci Carter MD [address] [place], [place] [phone] 11/20/2023 11:30 AM EDT Appointment [facility] Radiology Sh[facility] Mammography [address] [place] [phone] Ricci Carter MD [address] [place], [place] [id number] 03/05/2024 11:00 AM EST Consult [facility] Cardiology [address] [phone] Ricci Carter MD [address] [place], [place] [phone] Jamil Ralph MD [address] [place] [address] 05/30/2024 9:00 AM EST Office Visit [facility] Department of Internal Medicine [facility] [address] [facility] [address] [place], [place] [phone] Consuelo Hobbs PA-C [address] [facility] [address] [place], [place] [phone] documented as of this encounter Procedures Procedure Name Priority Date/Time Associated Diagnosis Comments (RETIRED) COVID-19 (SARS-COV-2) COVREQ Routine 12/12/2019 9:51 AM EDT Benign carcinoid tumor of the ileum COVID-19 RT-PCR ([facility]) Routine 12/12/2019 9:51 AM EDT documented in this encounter Results * COVID-19 RT-PCR ([facility]) (12/12/2019 9:51 AM EDT) COVID-19 RT-PCR SARS-CoV-2 Not Detected SARS-CoV-2 Not Detected HOSPITAL LAB Comment: (NOTE) ADDITIONAL INFORMATION The [facility] COVID-19 RT-PCR Assay is Real-Time Reverse Bleach Tester Polymerase Chain Reaction (ob scrub tech-PCR) for the in vitro qualitative detection of three SARS-Cov-2 target sequences unique to the coronavirus disease 2019 (COVID-19). This is an Emergency Use Authorization (EUA) in vitro diagnostic (IVD) test that has been modified to include the globalscholar.com automated liquid handler. Its analytical performance characteristics have been determined by the senior telecommunications engineer and verified by [facility] in a manner consistent with CLIA requirements. This test may be used for clinical purposes and should not be regarded as purely investigational or for research use only. This laboratory is certified under the Clinical Laboratory Improvement Amendments of 1988 (CLIA) as qualified to perform high complexity clinical testing. Reference interval for this testing is SARS-CoV-2 Not Detected. Fact sheets for this Emergency Use Authorization assay can be found at the following links: For Healthcare Providers: https://www.fda.gov/media/629698/download For Patients: https://www.fda.gov/media/328925/download TEST LIMITATIONS Positive results are indicative of the presence of SARS-CoV-2 RNA; clinical correlation with patient history and other diagnostic information is necessary to determine patient infection status. Positive results do not rule out bacterial infection or co-infection with other viruses. The agent detected may not be the definite cause of disease. Negative results do not exclude SARS-CoV-2 infection and should not be used as the sole basis for patient management decisions. Negative results must be combined with clinical observations, patient history, and epidemiological information. Improper sample collection, transport or storage may impede the ability of the assay to detect target sequences. Inconclusive specimens are not repeated, and recollection and submission of a new sample is recommended. The performance of the TaqPath COVID-19 Combo Kit was established using nasopharyngeal swab, nasopharyngeal aspirate, and bronchoalveolar lavage (BAL) specimens. The limit of detection for the assay was determined to be 0.75copies/uL in the specimens of nasopharyngeal swab. Other specimen types may be need for further validation before testing on this system. For further details refer to the [employer] TaqPath COVID-19 Combo Kit EUA submission (https://www.[employer].gov/media/148801/download). Performed at [address] Lic [address]695 12/12/2019 9:51 AM EDT 12/12/2019 12:13 PM EDT Madi Sharp MD MICROBIOLOGY - GENER AL ORDERABLES HOSPITAL LAB * COVID-19 (SARS-COV-2) Lab Request (12/12/2019 9:51 AM EDT) [facility] COVID-19 (SARS-CoV-2) Specimen received and test ordered for designated performing laboratory. 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
--- OUTSIDE RECORDS SUMMARY | 2023-10-29 17:51 | XMS_ITS | Encounter Summary ---
Author Organization [facility] Address [address] [place] [address] Care Team Providers Care Truck Dispatcher Name Role Phone Zohaib Aldana PA-C Primary Care Provider Encounter Details Date Type Department Care Team (Late st Contact Info) Description 05/13/2019 Orders Only [facility] [address] [place] [address], TECHNICIAN AUTOMATIC [address] [place], [place] [phone] Social History Tobacco Use Types Packs/Day Years [...] Office Visit [facility] Cancer [place] Medical Oncology at [address] [phone] Ricci Carter MD [address] [place] [address] 11/13/2023 8:30 AM EDT Infusion [facility] [place] [facility] Outpatient Infusion Center [address] [phone] Ricci Carter MD [address] [place], [place] [phone] Keiko Hallman MD 80 [place] [address] 11/20/2023 11:00 AM EDT Appointment [facility] Radiology Shay Mammography [address] [place] [phone] Ricci Carter MD [address] [place], [place] [phone] 11/20/2023 11:30 AM EDT Appointment [facility] Radiology Shay Mammography [address] [place] [phone] Ricci Carter MD [address] [place] [address] 03/05/2024 11:00 AM EST Consult [facility] Medical [facility] Cardiology [address] [place] [address] [phone] Ricci Carter MD [address] [place], [place] [phone] Jamil Ralph MD [address] [facility] [address] [place] [address] 05/30/2024 9:00 AM EST Office Visit [facility] Department of Internal Medicine [place] [phone] [facility] [address] [place] [address] Zohaib Aldana PA-C 1210 [facility] [address] [place] [address] documented as of this encounter Procedures Procedure Name Priority Date/Time Associated Diagnosis Comments MR ABDOMEN WITH AND WITHOUT CONTRAST Routine 05/15/2019 7:43 AM EST documented in this encounter Results * MR ABDOMEN WITH AND WITHOUT CONTRAST (05/15/2019 7:43 AM EST) Anatomical Region Laterality Modality Other 05/13/2019 9:45 AM EST 05/13/2019 9:45 AM EST Narrative 05/15/2019 7:43 AM EST EXAMINATION: MRI ABDOMEN WITHOUT AND WITH CONTRAST MRI PELVIS WITHOUT AND WITH CONTRAST 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 ?? COMPARISON: Multiple previous abdomen and pelvic MRI with the last abdomen and pelvic MRI of 11/28/2018. CT abdomen and pelvis of 06/04/2014, 12/10/2013, 05/30/2013. ?? TECHNIQUE: MRI of the abdomen and pelvis is acquired without and with intravenous contrast administration. 6 mL of Gadavist was administered intravenously. ?? FINDINGS: The liver is normal in size, contour and attenuation. No focal liver lesion. The gallbladder is surgically absent. No intrahepatic biliary ductal dilatation. Upper limits of normal dilatation of the common bile duct measuring 0.8 cm is a stable finding. No evidence of filling defect in the common bile duct. The adrenal glands are normal. No adrenal mass. The spleen is unremarkable with normal size. No focal splenic lesion. The pancreas is unremarkable. There is normal enhancement of the pancreatic parenchyma. No peripancreatic stranding or fluid. No pancreatic ductal dilatation. The kidneys are normal in size, shape and attenuation. There is symmetrical enhancement of the kidneys. No hydroureteronephrosis or perinephric stranding. A 1.7 cm peripelvic cyst in the right mid kidney anteromedially is a stable finding. The uterus is normal in size. Small nabothian cyst is noted in the cervix. Apparent thickening of the anterior myometrium is probably related to uterine contraction as similar finding is not seen on the previous MRI. The ovaries are normal in appearance containing multiple follicles. Dominant follicle in the right ovary measures 1.5 cm. The urinary bladder is largely decompressed and therefore not optimally evaluated. There is no evidence of free intraperitoneal fluid. No significant abdominal wall hernia. Lobulated enhancing mesenteric soft tissue mass in the mid abdomen, in the midline and to the right are again noted, more superior smaller round component measures 0.7 x 0.8 cm (series 1601 image 101/164), previously 0.6 x 0.9 cm. The more inferior lobulated component in the right para midline location measures 2.0 x 2.3 cm, previously 2.1 x 2.5 cm (11/28/2018). No new mesenteric masses are seen. No new retroperitoneal or pelvic adenopathy. No significant abdominal wall hernia. The stomach and small bowel are not dilated. The patient is status post right hemicolectomy. Mild thickening of the left-sided colon and rectosigmoid colon the pelvis is noted with prominence of vasa recta, somewhat similar findings are noted on the previous MRI. Recommend clinical correlation. No significant marrow signal abnormality is noted. IMPRESSION: Mesenteric masses in the mid abdomen as detailed above are not significantly changed compared to last study. No new mesenteric masses, retroperitoneal or pelvic adenopathy. Essentially, no significant interval change is noted compared to last study of 11/28/2018. Thank you for referring your patient to us, Everardo Khan MD [phone] (Electronically Signed - 05/15/2019 07:43) Copy: RICCI CARTER MD [facility] [address] [place] [address] [phone] ZOHAIB ALDANA PA-C [facility] [address] [facility] [place] [address] [address] )[phone] Procedure Note Everardo Khan MD - 05/15/2019 EXAMINATION: MRI ABDOMEN WITHOUT AND WITH CONTRAST MRI PELVIS WITHOUT AND WITH CONTRAST 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 COMPARISON: Multiple previous abdomen and pelvic MRI with the last abdomen and pelvicMRI of 11/28/2018. CT abdomen and pelvis of 06/04/2014, 12/10/2013,05/30/2013. TECHNIQUE: MRI of the abdomen and pelvis is acquired without and with intravenous contrast administration. 6 mL of Gadavist was administered intravenously. FINDINGS: The liver is normal in size, contour and attenuation. No focal liverlesion. The gallbladder is surgically absent. No intrahepatic biliary ductal dilatation. Upper limits of normal dilatation of the common bile duct measuring 0.8 cm is a stable finding. No evidence of filling defect inthe common bile duct. The adrenal glands are normal. No adrenal mass. The spleen is unremarkable with normal size. No focal splenic lesion. The pancreas is unremarkable. There is normal enhancement of thepancreatic parenchyma. No peripancreatic stranding or fluid. No pancreatic ductal dilatation. The kidneys are normal in size, shape and attenuation. There issymmetrical enhancement of the kidneys. No hydroureteronephrosis or perinephricstranding. A 1.7 cm peripelvic cyst in the right mid kidney anteromedially is astable finding. The uterus is normal in size. Small nabothian cyst is noted inthe cervix. Apparent thickening of the anterior myometrium is probably relatedto uterine contraction as similar finding is not seen on the previous MRI.The ovaries are normal in appearance containing multiple follicles. Dominant follicle in the right ovary measures 1.5 cm. The urinary bladder islargely decompressed and therefore not optimally evaluated. There is no evidence of free intraperitoneal fluid. No significantabdominal wall hernia. Lobulated enhancing mesenteric soft tissue mass in the mid abdomen, inthe midline and to the right are again noted, more superior smaller round component measures 0.7 x 0.8 cm (series 1601 image 101/164), previously0.6 x 0.9 cm. The more inferior lobulated component in the right para midline location measures 2.0 x 2.3 cm, previously 2.1 x 2.5 cm (11/28/2018). Nonew mesenteric masses are seen. No new retroperitoneal or pelvic adenopathy.No significant abdominal wall hernia. The stomach and small bowel are not dilated. The patient is status postright hemicolectomy. Mild thickening of the left-sided colon and rectosigmoidcolon the pelvis is noted with prominence of vasa recta, somewhat similarfindings are noted on the previous MRI. Recommend clinical correlation. No significant marrow signal abnormality is noted. IMPRESSION: Mesenteric masses in the mid abdomen as detailed above are notsignificantly changed compared to last study. No new mesenteric masses, retroperitonealor pelvic adenopathy. Essentially, no significant interval change is noted compared to last study of 11/28/2018. Thank you for referring your patient to us, Everardo Khan MD [phone] (Electronically Signed - 05/15/2019 07:43) Copy: RICCI CARTER MD [facility] [address] [place] [address] [phone] ZOHAIB ALDANA PA-C [facility] 12[address] [facility] [address] [address] APRN IMG LEGACY PROCEDUR ES documented in this encounter Visit Diagnoses Not on filedocumented in this encounter Care Teams Truck Dispatcher Relationship Specialty Start Date End Date Zohaib Aldana PA-C [address] [facility] [address] [place] [address] PCP - General 05/01/19 documented as of this encounter
--- OUTSIDE RECORDS SUMMARY | 2023-10-29 17:51 | XMS_ITS | Encounter Summary ---
Author Organization [facility] Address [address] [place] [address] Care Team Providers Care Jewel Blocker And Sawyer Name Role Phone Consuelo Hobbs PA-C Primary Care Provider Madi Sharp MD Unavailable [phone] Encounter Details Date Type Department Care Team ([facility] Contact Info) Description 11/18/2019 Orders Only [facility] Cancer [place]: Oncology and Hematology [address] [phone] Ricci Carter MD [address] [place] [address] Social History Tobacco Use Types Packs/Day Years [...] Upcoming Encounters Date Type Department Care Team ([facility] Contact Info) Description 11/13/2023 7:45 AM EDT Office Visit [facility] Medical Oncology at [address] [phone] Ricci Carter MD [address] [place], [place] [phone] 11/13/2023 8:30 AM EDT Infusion [facility] Cancer [place] at [facility] Outpatient Infusion Center [address] [phone] Ricci Crater MD [address] [place], [place] [phone] Keiko Hallman MD 80 [facility] [place] [address] 11/20/2023 11:00 AM EDT Appointment [facility] Radiology Shay Mammography [address] [place] [address] [phone] Ricci Carter MD [address] [place], [place] [phone] 11/20/2023 11:30 AM EDT Appointment [facility] Radiology Shay Mammography [address] [place] [phone] Ricci Carter MD [address] [place], [place] [phone] 03/05/2024 11:00 AM EST Consult [facility] Cardiology [address] [place] [phone] Ricci Carter MD [address] [place], [place] [phone] Jamil Ralph MD [address] [place] [address] 05/30/2024 9:00 AM EST Office Visit [facility] Department of Internal Medicine [facility] 12[address] [facility] [address] [place] [address] Consuelo Hobbs PA-C 1210 [facility] 109 [place] [address] documented as of this encounter Visit Diagnoses Not on filedocumented in this encounter Care Teams Jewel Blocker And Sawyer Relationship Specialty Start Date End Date Consuelo Hobbs PA-C [address] [place] [address] PCP - General 05/01/19 Madi Sharp MD [address] [address] Gastroenterology 10/02/19 documented as of this encounter
--- OUTSIDE RECORDS SUMMARY | 2023-10-29 17:51 | XMS_ITS | Encounter Summary ---
Author Organization [facility] Address [address] [place] [address] Care Team Providers Care Construction Economist Name Role Phone Consuelo Hobbs PA-C Primary Care Provider Encounter Details Date Type Department Care Team (Latest Contact Info) Description 09/25/2019 Travel Social History Tobacco Use Types Packs/Day [...] have Coronavirus / COVID-19? No / Unsure 09/25/2019 10:19 AM EDT documented as of this encounter Plan of Treatment Upcoming Encounters Date Type Department Care Team (Late st Contact Info) Description 11/13/2023 7:45 AM EDT Office Visit [facility] Cancer [place] Medical Oncology at [address] [phone] Ricci Carter MD [address] [place] [address] 11/13/2023 8:30 AM EDT Infusion [facility] [place] at [facility] Outpatient Infusion Center [address] [phone] Ricci Carter MD [address] [place], [place] [phone] Keiko Hallman MD [address] [facility] [place] [address] 11/20/2023 11:00 AM EDT Appointment [facility] Radiology Shay Mammography [address] [place] [address] [phone] Ricci Carter MD [address] [place], [place] [phone] 11/20/2023 11:30 AM EDT Appointment [facility] Radiology Shay Mammography [address] [place] [phone] Ricci Carter MD [address] [place], [place] [phone] 03/05/2024 11:00 AM EST Consult [facility] Medical [facility] Cardiology [address] [place] [phone] Ricci Carter MD [address] [place], [place] [phone] Jamil Ralph MD [address] [place] [facility] [address] [place], [place] [phone] 05/30/2024 9:00 AM EST Office Visit [facility] Department of Internal Medicine [address] [place] [address] Consuelo Hobbs PA-C 1210 [facility] [address] [place] [address] documented as of this encounter Visit Diagnoses Not on filedocumented in this encounter Care Teams Construction Economist Relationship Specialty Start Date End Date Consuelo Hobbs PA-C 1210 [facility] [address] [place] [address] PCP - General 05/01/19 documented as of this encounter
--- OUTSIDE RECORDS SUMMARY | 2023-10-29 17:51 | XMS_ITS | Encounter Summary ---
Author Organization [facility] Address [address] [place] [address] Care Team Providers Care Fireworks Inspector Name Role Phone Consuelo Hobbs PA-C Primary Care Provider Madi Sharp MD Unavailable [phone] Encounter Details Date Type Department Care Team (Late Contact Info) Description 10/03/2019 Scanned Document [facility] Cancer [place] Medical Oncology at [address] [phone] Provider, Dodie, [address] [place] [address] Social History Tobacco Use Types Packs/Day Years [...] Description 11/13/2023 7:45 AM EDT Office Visit [facility] Medical Oncology at [address] [phone] Ricci Carter MD [address] [place] [address] 11/13/2023 8:30 AM EDT Infusion [facility] Cancer [place] at [facility] Outpatient Infusion Center [address] [phone] Ricci Carter MD [address] [place] [phone] Keiko Hallman MD 80 [facility] [place] [address] 11/20/2023 11:00 AM EDT Appointment [facility] Radiology Shay Mammography [address] [place] [address] [phone] Ricci Carter MD [address] [place] [phone] 11/20/2023 11:30 AM EDT Appointment [facility] Radiology [place] Mammography [address] [place] [address] [phone] Ricci Carter MD [address] [place] [phone] 03/05/2024 11:00 AM EST Consult [facility] Cardiology [address] [place] [address] [phone] Ricci Carter MD [address] [place] [phone] Jamil Ralph MD [address] [place] [address] 05/30/2024 9:00 AM EST Office Visit [facility] Department of Internal Medicine [facility] 1210 [facility] [address] [place] [address] Consuelo Hobbs PA-C 1210 [facility] 109 [place] [address] documented as of this encounter Visit Diagnoses Not on filedocumented in this encounter Care Teams Fireworks Inspector Relationship Specialty Start Date End Date Consuelo Hobbs PA-C [address] [place] [address] PCP - General 05/01/19 Madi Sharp MD 85 [facility] [address] [place] [address] Gastroenterology 10/02/19 documented as of this encounter
--- OUTSIDE RECORDS SUMMARY | 2023-10-29 17:51 | XMS_ITS | Encounter Summary ---
Author Organization [facility] Address [address] [place] [address] Care Team Providers Care Char House Supervisor Name Role Phone Consuelo Hobbs PA-C Primary Care Provider Madi Sharp MD Unavailable [phone] Reason for Visit * Reason Comments Injections * Episode Based Medications (Routine) - Authorized Specialty Diagnoses / Procedures Referred By Contbalbir t Referred To Contact Diagnoses Carcinoid tumor of ileum, unspecified whether malignant (HCC) Keiko Hallman MD [address] [facility] [place] [address] Med On[address] [address] Referral ID Status Reason Start Date Expiration Date V isits Requested Visits Authorized [id number] Authorized 04/29/2022 11/27/2023 5 2 Encounter Details Date Type Department Care Team (Late st Contact Info) Description 11/14/2019 8:30 AM EDT Infusion [facility] Cancer [place] [facility] Outpatient Infusion Center [address] [phone] Ricci Carter MD [address] [place] [address] Keiko Hallman MD 80 [facility] [place] [address] Han Varner RN 80 [place] [address] Carcinoid tumor of ileum, unspecified whether malignant [...] Sign Reading Time Taken Comments Blood Pressure 158/75 11/14/2019 8:23 AM EDT Pulse 80 11/14/2019 8:23 AM EDT Temperature 36.6 ??C (97.9 ??F) 11/14/2019 8:23 AM ED T Respiratory Rate 16 11/14/2019 8:23 AM EDT Oxygen Saturation 100% 11/14/2019 8:23 AM EDT Inhaled Oxygen Concentration - - Weight 61.7 kg (136 lb) 11/14/2019 8:23 AM EDT Height - - Body Mass Index 24.1 10/03/2019 8:00 AM EDT documented in this encounter Plan of Treatment Upcoming Encounters Date Type Department Care Team (Late st Contact Info) Description 11/13/2023 7:45 AM EDT Office Visit [facility] Cancer [place] Medical Oncology at [address] [phone] Ricci Carter MD [address] [place] [address] 11/13/2023 8:30 AM EDT Infusion [facility] Cancer [place] [facility] Outpatient Infusion Center [address] [phone] Ricci Carter MD [address] [place], [place] [phone] Keiko Hallman MD 80 [facility] [place] [address] 11/20/2023 11:00 AM EDT Appointment [facility] Radiology [place] [facility] [address] [place] [phone] Ricci Carter MD [address] [place], [place] [phone] 11/20/2023 11:30 AM EDT Appointment [facility] Radiology [place] [facility] [address] [place] [phone] Ricci Carter MD [address] [place], [place] [id number] 03/05/2024 11:00 AM EST Consult [facility] Medical [facility] Cardiology [address] [place] [phone] Ricci Carter MD [address] [place], [place] [phone] Jamil Ralph MD [address] [facility] [address] [place] [address] 05/30/2024 9:00 AM EST Office Visit [facility] Department of Internal Medicine [facility] 1210 [facility] 109 [place] [address] Consuelo Hobbs PA-C [address] [address] documented as of this encounter Visit Diagnoses Diagnosis Carcinoid tumor of ileum, unspecified whether malignant (HCC)- Primary documented in this encounter Administered Medications Inactive Administered Medications - up to 1 most recent administrations Medication Order MAR Action Action Date Dose Rate Site octreotide (SandoSTATIN LAR) IM injection 40 mg 40 mg, Intramuscular, Once, On Marcelle 11/14/19 at 0930, For 1 dose, Administer IM intragluteal (avoid deltoid administration). For intraMUSCULAR use ONLY. Must be administered immediately after mixing. Given 11/14/2019 9:04 AM EDT 40 mg Left Gluteal Upper Outer Quadrant documented in this encounter Care Teams Char House Supervisor Relationship Specialty Start Date End Date Consuelo Hobbs PA-C [address] [place] [address] PCP - General 05/01/19 Madi Sharp MD [address] [place] [address] Gastroenterology 10/02/19 documented as of this encounter
--- OUTSIDE RECORDS SUMMARY | 2023-10-29 17:51 | XMS_ITS | Encounter Summary ---
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 The patient was given the number [phone] to call if there were any schedule changes or questions. * Madi Sharp MD - 09/25/2019 10:25 AM EDT Done thanks. documented in this encounter Plan of Treatment Upcoming Encounters Date Type Department Care Team (Late st Contact Info) Description 11/13/2023 7:45 AM EDT Office Visit [facility] Medical Oncology at [address] [phone] Ricci Carter MD [address] [place] [address] 11/13/2023 8:30 AM EDT Infusion [facility] Cancer [place] at [facility] Outpatient Infusion Center [address] [phone] Ricci Carter MD [address] [place] [address] Keiko Hallman MD 80 [facility] [place] [address] 11/20/2023 11:00 AM EDT Appointment [facility] Radiology [place] [facility] [address] [place] [phone] Ricci Carter MD [address] [place] [address] 11/20/2023 11:30 AM EDT Appointment [facility] Radiology [place] [facility] 35 [place] [address] Ricci Carter MD [address] [place] [address] 03/05/2024 11:00 AM EST Consult [facility] Cardiology [place] [address] [facility] [address] [place] [phone] Ricci Carter MD [address] [place], [place] [phone] Jamil Ralph MD [address] [place] [address] 05/30/2024 9:00 AM EST Office Visit [facility] Department of Internal Medicine [facility] 1210 [facility] [address] [place] [address] Consuelo Hobbs PA-C 1210 [facility] [address] [place] [address] documented as of this encounter Results * COVID-19 (SARS-COV-2) Lab Request (12/12/2019 9:51 AM EDT) COVID-19 (SARS-CoV-2) Specimen received and test ordered for designated performing laboratory. 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
--- OUTSIDE RECORDS SUMMARY | 2023-10-29 17:51 | XMS_ITS | Encounter Summary ---
Author Organization [facility] Address [address] [place] [address] Care Team Providers Care Decorator Lighting Fixtures Name Role Phone Consuelo Hobbs PA-C Primary Care Provider Madi Sharp MD Unavailable [phone] Reason for Visit * Episode Based Medications (Routine) - Authorized Specialty Diagnoses / Procedures Referred By Contac t Referred To Contact Diagnoses Carcinoid tumor of ileum, unspecified whether malignant (HCC) Keiko Hallman MD 80 [facility] [place] [address] Med Onc Ci [address] [phone] Referral ID Status Reason Start Date Expiration Date V isits Requested Visits Authorized [id number] Authorized 04/29/2022 11/27/2023 5 2 Encounter Details Date Type Department Care Team (Late st Contact Info) Description 12/26/2019 8:30 AM EDT Infusion [facility] Cancer [place] at [facility] Outpatient Infusion Center [address] [phone] Ricci Carter MD [address] [place] [address] Keiko Hallman MD 80 [facility] [place] [address] Carcinoid tumor of ileum, unspecified whether malignant [...] Sign Reading Time Taken Comments Blood Pressure 135/75 12/26/2019 8:00 AM EDT Pulse 80 12/26/2019 8:00 AM EDT Temperature 36.8 ??C (98.3 ??F) 12/26/2019 8:00 AM ED T Respiratory Rate 16 12/26/2019 8:00 AM EDT Oxygen Saturation 100% 12/26/2019 8:00 AM EDT Inhaled Oxygen Concentration - - Weight 61.7 kg (136 lb) 12/26/2019 8:00 AM EDT Height 160 cm (5' 2.99) 12/26/2019 8:00 AM EDT Body Mass Index 24.1 12/26/2019 8:00 AM EDT documented in this encounter Plan of Treatment Upcoming Encounters Date Type Department Care Team (Late st Contact Info) Description 11/13/2023 7:45 AM EDT Office Visit [facility] Cancer [place] Medical Oncology at [address] [phone] Ricci Carter MD [address] [place] [address] 11/13/2023 8:30 AM EDT Infusion [facility] Cancer [place] at [facility] Outpatient Infusion Center [address] [phone] Ricci Carter MD [address] [place], [place] [phone] Keiko Hallman MD 80 [facility] [place] [address] 11/20/2023 11:00 AM EDT Appointment [facility] Radiology [place] [facility] [address] [place] [phone] Ricci Carter MD [address] [place], [place] [phone] 11/20/2023 11:30 AM EDT Appointment [facility] Radiology [place] [facility] 35 [place] [phone] Ricci Carter MD [address] [place], [place] [phone] 03/05/2024 11:00 AM EST Consult [facility] Cardiology [address] [place] [phone] Ricci Carter MD [address] [place], [place] [phone] Jamil Ralph MD [address] [place] [facility] [address] [place], [place] [phone] 05/30/2024 9:00 AM EST Office Visit [facility] Department of Internal Medicine [address] [place] [address] Consuelo Hobbs PA-C [address] [address] documented as of this encounter Visit Diagnoses Diagnosis Carcinoid tumor of ileum, unspecified whether malignant (HCC)- Primary documented in this encounter Administered Medications Inactive Administered Medications - up to 1 most recent administrations Medication Order MAR Action Action Date Dose Rate Site octreotide (SandoSTATIN LAR) IM injection 40 mg 40 mg, Intramuscular, Once, On Marcelle 12/26/19 at 0900, For 1 dose, Administer IM intragluteal (avoid deltoid administration). For intraMUSCULAR use ONLY. Must be administered immediately after mixing. Given 12/26/2019 8:37 AM EDT 40 mg Left Gluteal Upper Outer Quadrant documented in this encounter Care Teams Decorator Lighting Fixtures Relationship Specialty Start Date End Date Consuelo Hobbs PA-C [address] [address] PCP - General 05/01/19 Madi Sharp MD [address] [address] Gastroenterology 10/02/19 documented as of this encounter
--- OUTSIDE RECORDS SUMMARY | 2023-10-29 17:51 | XMS_ITS | Encounter Summary ---
Author Organization [facility] Address [address] [place] [address] Care Team Providers Care Exceptional Needs Teacher Name Role Phone Consuelo Hobbs PA-C Primary Care Provider Madi Sharp MD Unavailable [phone] Reason for Visit * Reason Comments Injections * Episode Based Medications (Routine) - Authorized Specialty Diagnoses / Procedures Referred By Contbalbir t Referred To Contact Diagnoses Carcinoid tumor of ileum, unspecified whether malignant (HCC) Keiko Hallman MD 80 [facility] [place] [address] Med Onc Ci [address] [phone] Referral ID Status Reason Start Date Expiration Date V isits Requested Visits Authorized [id number] Authorized 04/29/2022 11/27/2023 5 2 Encounter Details Date Type Department Care Team (Late st Contact Info) Description 10/24/2019 8:30 AM EDT Infusion [facility] Cancer [place] at [facility] Outpatient Infusion Center [address] [phone] Ricci Carter MD [address] [place] [address] Keiko Hallman MD [address] [place] [address] [place] [address] Carcinoid tumor of ileum, unspecified whether malignant [...] Visit [facility] Medical Oncology at [address] [phone] Ricci Carter MD [address] [place] [address] 11/13/2023 8:30 AM EDT Infusion [facility] Cancer [place] at [facility] Outpatient Infusion Center [address] [phone] Ricci Carter MD [address] [place] [address] Keiko Hallman MD [address] [place] [address] On[place] 11/20/2023 11:00 AM EDT Appointment [facility]iology [address] [place] [phone] Ricci Carter MD [address] [place] [phone] 11/20/2023 11:30 AM EDT Appointment [facility] Radiology [place] [facility]ammography 35 [place] [phone] Ricci Carter MD [address] [place], [place] [address] 03/05/2024 11:00 AM EST Consult [facility] Cardiology [address] [place] [phone] Ricci Carter MD [address] [place], [place] [phone] Jamil Ralph MD [address] [place] [facility] [address] [place] [address] 05/30/2024 9:00 AM EST Office Visit [facility] Department of Internal Medicine [facility] [address] [facility] [address] [place], [place] [phone] Consuelo Hobbs PA-C 1210 [facility] [address] [place] [address] documented as of this encounter Visit Diagnoses Diagnosis Carcinoid tumor of ileum, unspecified whether malignant (HCC)- Primary documented in this encounter Administered Medications Inactive Administered Medications - up to 1 most recent administrations Medication Order MAR Action Action Date Dose Rate Site octreotide (SandoSTATIN LAR) IM injection 40 mg 40 mg, Intramuscular, Once, On Marcelle 10/24/19 at 0930, For 1 dose, Administer IM intragluteal (avoid deltoid administration). For intraMUSCULAR use ONLY. Must be administered immediately after mixing. Given 10/24/2019 8:37 AM EDT 40 mg Other (See Comments) documented in this encounter Care Teams Exceptional Needs Teacher Relationship Specialty Start Date End Date Consuelo Hobbs PA-C [address] [address] PCP - General 05/01/19 Madi Sharp MD [address] [place] [address] Gastroenterology 10/02/19 documented as of this encounter
--- OUTSIDE RECORDS SUMMARY | 2023-10-29 17:51 | XMS_ITS | Encounter Summary ---
Author Organization [facility] Address [address] [place] [address] Care Team Providers Care Parboiler Name Role Phone Consuelo Hobbs PA-C Primary Care Provider Madi Sharp MD Unavailable [phone] Reason for Visit * Reason Comments [id number] Encounter Details Date Type Department Care Team (Late st Contact Info) Description 11/26/2019 Telephone [facility] Cancer [place] Medical Oncology at [address] [phone] Provider, MD Dodie [address] [place] [address] [place] Social History Tobacco Use Types Packs/Day Years [...] encounter Miscellaneous Notes * Telephone Encounter - Holly Adin - 11/29/2019 10:24 AM EDT Spoke with Patrick at [facility] who was able to switch to approved [facility]. She let patient know when ready to pickup. I called patient and left a voicemail to call me back if any issues. Ok to close encounter. documented in this encounter Plan of Treatment Upcoming Encounters Date Type Department Care Team (Late st Contact Info) Description 11/13/2023 7:45 AM EDT Office Visit [facility] Medical Oncology at [address] [phone] Ricci Carter MD [address] [place] [address] 11/13/2023 8:30 AM EDT Infusion [facility] Cancer [place] at [facility] Outpatient Infusion Center [address] [phone] Ricci Carter MD [address] [place], [place] [phone] Keiko Hallman MD 80 [facility] [place] [address] 11/20/2023 11:00 AM EDT Appointment [facility] Radiology [place] [facility] [address] [place] [phone] Ricci Carter MD [address] [place] [address] 11/20/2023 11:30 AM EDT Appointment [facility] Radiology [place] [facility] [address] [place] [phone] Ricci Carter MD [address] [place] [address] 03/05/2024 11:00 AM EST Consult [facility] Cardiology [place] [address] [facility] [address] [place] [address] Ricci Carter MD [address] [place] [address] Jamil Ralph MD [address] [place] [facility] [address] [place], [place] [phone] 05/30/2024 9:00 AM EST Office Visit [facility] Department of Internal Medicine [facility] 1210 [facility] [address] [place] [address] Consuelo Hobbs PA-C 1210 [facility] 109 [place] [address] documented as of this encounter Visit Diagnoses Not on filedocumented in this encounter Care Teams Parboiler Relationship Specialty Start Date End Date Consuelo Hobbs PA-C 1210 [facility] 109 [place] [address] PCP - General 05/01/19 Madi Sharp MD [address] [place] [address] [place] [address] Gastroenterology 10/02/19 documented as of this encounter
--- OUTSIDE RECORDS SUMMARY | 2023-10-29 17:51 | XMS_ITS | Encounter Summary ---
Author Organization [facility] Address [address] [place] [address] Care Team Providers Care Automatic Lathe Tender Name Role Phone Consuelo Hobbs PA-C Primary Care Provider Madi Sharp MD Unavailable [phone] Encounter Details Date Type Department Care Team (Latest Contact Info) Description 12/10/2019 Travel Social History Tobacco Use Types Packs/Day [...] [facility] Cancer [place] Medical Oncology at [address] [phone] Ricci Carter MD [address] [place], [place] [phone] 11/13/2023 8:30 AM EDT Infusion [facility] Cancer [place] at [facility] Outpatient Infusion Center [address] [phone] Ricci Carter MD [address] [place], [place] [phone] Keiko Hallman MD 80 [facility] [place] [address] 11/20/2023 11:00 AM EDT Appointment [facility] Radiology [place] [facility] [address] [place] [phone] Ricci Carter MD [address] [place], [place] [phone] 11/20/2023 11:30 AM EDT Appointment [facility] Radiology [place] [facility] [address] [place] [phone] Ricci Carter MD [address] [place] [address] 03/05/2024 11:00 AM EST Consult [facility] Medical [facility] Cardiology [address] [place] [address] [phone] Ricci Carter MD [address] [place], [place] [phone] Jamil Ralph MD [address] [place] [facility] [address] [place] [address] 05/30/2024 9:00 AM EST Office Visit [facility] Department of Internal Medicine [place] [phone] [facility] [address] [place] [address] Consuelo Hobbs PA-C [address] [phone] documented as of this encounter Visit Diagnoses Not on filedocumented in this encounter Care Teams Automatic Lathe Tender Relationship Specialty Start Date End Date Consuelo Hobbs PA-C [address] [phone] PCP - General 05/01/19 Madi Sharp MD [address] [place] [address] Gastroenterology 10/02/19 documented as of this encounter
--- OUTSIDE RECORDS SUMMARY | 2023-10-29 17:51 | XMS_ITS | Encounter Summary ---
Author Organization [facility] Address [address] [place] [address] Care Team Providers Care Commercial Construction Estimator Name Role Phone Consuelo Hobbs PA-C Primary Care Provider Madi Sharp MD Unavailable [phone] Reason for Visit * Episode Based Medications (Routine) - Authorized Specialty Diagnoses / Procedures Referred By Contac t Referred To Contact Diagnoses Carcinoid tumor of ileum, unspecified whether malignant (HCC) Keiko Hallman MD 80 [facility] [place] [address] Med Onc Ci [address] [phone] Referral ID Status Reason Start Date Expiration Date V isits Requested Visits Authorized [id number] Authorized 04/29/2022 11/27/2023 5 2 Encounter Details Date Type Department Care Team (Late st Contact Info) Description 10/03/2019 8:30 AM EDT Infusion [facility] [place] [facility] Out[facility] Infusion Center [address] [phone] Ricci Carter MD [address] [place] [address] Keiko Hallman MD 80 [facility] [place] [address] Han Varner RN [address] [place] [address] Carcinoid tumor of ileum, unspecified whether malignant [...] Sign Reading Time Taken Comments Blood Pressure 131/74 10/03/2019 8:00 AM EDT Pulse 80 10/03/2019 8:00 AM EDT Temperature 35.8 ??C (96.5 ??F) 10/03/2019 8:00 AM ED T Respiratory Rate 16 10/03/2019 8:00 AM EDT Oxygen Saturation 99% 10/03/2019 8:00 AM EDT Inhaled Oxygen Concentration - - Weight 63 kg (139 lb) 10/03/2019 8:00 AM EDT Height 160 cm (5' 2.99) 10/03/2019 8:00 AM EDT Body Mass Index 24.63 10/03/2019 8:00 AM EDT documented in this encounter Plan of Treatment Upcoming Encounters Date Type Department Care Team (Late st Contact Info) Description 11/13/2023 7:45 AM EDT Office Visit [facility] [place] Medical Oncology at [address] [phone] Ricci Carter MD [address] [place] [address] 11/13/2023 8:30 AM EDT Infusion [facility] Outpatient Infusion Center [address] [phone] Ricci Carter MD [address] [place] [address] Keiko Hallman MD 80 [facility] [place] [address] 11/20/2023 11:00 AM EDT Appointment [facility] Radiology [facility] [address] [place] [phone] Ricci Carter MD [address] [place] [address] 11/20/2023 11:30 AM EDT Appointment [facility] Radiology [facility] 35 [place] [phone] Ricci Carter MD [address] [place] [address] 03/05/2024 11:00 AM EST Consult [facility] Cardiology [place] [address] [facility] [address] [place] [phone] Ricci Carter MD [address] [place], [place] [phone] Jamil Ralph MD [address] [facility] [address] [place] [address] 05/30/2024 9:00 AM EST Office Visit [facility] Department of Internal Medicine [facility] Ildefonso 1210 [facility] [address] [place], [place] [phone] Consuelo Hobbs PA-C [address] [phone] documented as of this encounter Visit Diagnoses Diagnosis Carcinoid tumor of ileum, unspecified whether malignant (HCC)- Primary documented in this encounter Administered Medications Inactive Administered Medications - up to 1 most recent administrations Medication Order MAR Action Action Date Dose Rate Site octreotide (SandoSTATIN LAR) IM injection 40 mg 40 mg, Intramuscular, Once, On Marcelle 10/03/19 at 0930, For 1 dose, Administer IM intragluteal (avoid deltoid administration). For intraMUSCULAR use ONLY. Must be administered immediately after mixing. Given 10/03/2019 8:42 AM EDT 40 mg Other (See Comments) documented in this encounter Care Teams Commercial Construction Estimator Relationship Specialty Start Date End Date Consuelo Hobbs PA-C [address] [place] [phone] PCP - General 05/01/19 Madi Sharp MD [address] [place] [address] Gastroenterology 10/02/19 documented as of this encounter
--- OUTSIDE RECORDS SUMMARY | 2023-10-29 17:51 | XMS_ITS | Encounter Summary ---
Author Organization [facility] Address [address] [place] [address] Care Team Providers Care Strip Cutting Machine Operator Name Role Phone Zohaib Aldana PA-C Primary Care Provider Madi Sharp MD Unavailable [phone] Encounter Details Date Type Department Care Team (Late Contact Info) Description 01/09/2020 Orders Only [facility] [address] [place] [address] Ricci Carter MD [address] [place], [place] [phone] Social History Tobacco Use Types Packs/Day Years [...] Visit [facility] Medical Oncology at [address] [phone] Ricci Carter MD [address] [place] [address] 11/13/2023 8:30 AM EDT Infusion [facility] [place] at [facility] Outpatient Infusion Center [address] [phone] Ricci Carter MD [address] [place], [place] [phone] Keiko Hallman MD 80 [facility] [place] [address] 11/20/2023 11:00 AM EDT Appointment [facility] Radiology [facility] [address] [place] [phone] Ricci Carter MD [address] [place], [place] [id number] 11/20/2023 11:30 AM EDT Appointment [facility] Radiology [facility] [address] [place] [phone] Ricci Carter MD [address] [place], [place] [address] 03/05/2024 11:00 AM EST Consult [facility] Cardiology [address] [place] [phone] Ricci Carter MD [address] [place], [place] [phone] Jamil Ralph MD [address] [place] [address] 05/30/2024 9:00 AM EST Office Visit [facility] Department of Internal Medicine [facility] [address] [facility] [address] [place], [place] [phone] Zohaib Aldana PA-C 1210 [facility] [address] [place] [address] documented as of this encounter Procedures Procedure Name Priority Date/Time Associated Diagnosis Comments MR PELVIS WITH AND WITHOUT CONTRAST Routine 01/10/2020 9:46 AM EDT documented in this encounter Results * MR PELVIS WITH AND WITHOUT CONTRAST (01/10/2020 9:46 AM EDT) Anatomical Region Laterality Modality Other 01/09/2020 8:45 AM EDT 01/09/2020 8:45 AM EDT Impressions 01/10/2020 9:46 AM EDT Similar appearance of 2 adjacent well-circumscribed lobular mesenteric masses in the right mid abdomen. No new abnormality seen. 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 Assess for change. Right-sided lower abdominal pain. COMPARISON: MRI 05/13/2019 and earlier ?? TECHNIQUE: Multiple routine MRI sequences through the abdomen were obtained on a high-field 1.5 Geeta MRI before and after the uneventful administration of 6 mL of Gadavist gadolinium-based IV contrast. ??Dynamic post-contrast images were obtained. FINDINGS: LUNG BASES: Lung bases are clear. LIVER: ??No loss of signal on opposed phase gradient echo T1 weighted images to suggest hepatic steatosis. ?? Liver enhances normally. ??No focal lesion seen. Hepatic and portal veins enhance normally. GALLBLADDER AND BILIARY TREE: Gallbladder surgically absent. There is mild prominence of the common bile duct, not unexpected status post remote prior cholecystectomy. Is unchanged from prior studies. SPLEEN: Normal. ??Normal size. ??No focal lesion. PANCREAS: Normal. ADRENAL GLANDS: Normal. ??No adrenal mass. KIDNEYS AND URETERS: Normal symmetric renal enhancement. ??No hydronephrosis or solid mass. 1.7 cm right mid renal cyst. LYMPHOVASCULAR STRUCTURES: Normal caliber aorta. ??IVC patent. ??No pathologically enlarged abdominal or retroperitoneal lymphadenopathy by short axis size criteria. Again seen is a multilobular enhancing mass [...] measuring 8mm, as was the case previously. PELVIS: UTERUS: ??Anteverted uterus has a normal configuration and measures 7.3 x 3.4 x 5.6 ??cm (bspxmk-dz-jieefd x anterior-posterior x transverse). Normal endometrial thickness, 0.4 cm. ?? Junctional zone is normal in signal and thickness. ??No focal uterine mass seen. There is a section scar of the lower uterine segment there is a 1.6 cm leiomyoma in the right lower uterine segment. There is a 1.1 cm leiomyoma in the left uterine body. CERVIX: Incidentally noted nabothian cyst again seen. Otherwise normal. VAGINA: Normal; no mass seen. RIGHT OVARY: The right ovary measures 2.2 x 2.1 x 2.0 cm. ??There is a hemorrhagic likely corpus luteum cyst in the right ovary with additional small follicles. LEFT OVARY: The left ovary measures 2.8 x 1.2 x 2.1 cm. ??There is a 1.7 cm simple cyst in the left ovary. BLADDER: Urinary bladder normal. PELVIC FREE FLUID: No free fluid or ascites. LYMPH NODES: No pathologically enlarged lymph nodes. OSSEOUS STRUCTURES: No acute or suspicious osseous abnormalities. 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 Assess forchange. Right-sided lower abdominal pain. COMPARISON: MRI 05/13/2019 and earlier TECHNIQUE: Multiple routine MRI sequences through the abdomen were obtained on a high-field 1.5 Geeta MRI before and after the uneventful administration of6 mL of Gadavist gadolinium-based IV contrast. Dynamic post-contrastimages were obtained. FINDINGS: LUNG BASES: Lung bases are clear. LIVER: No loss of signal on opposed phase gradient echo T1 weightedimages to suggest hepatic steatosis. Liver enhances normally. No focal lesionseen. Hepatic and portal veins enhance normally. GALLBLADDER AND BILIARY TREE: Gallbladder surgically absent. There ismild prominence of the common bile duct, not unexpected status post remoteprior cholecystectomy. Is unchanged from prior studies. SPLEEN: Normal. Normal size. No focal lesion. PANCREAS: Normal. ADRENAL GLANDS: Normal. No adrenal mass. KIDNEYS AND URETERS: Normal symmetric renal enhancement. Nohydronephrosis or solid mass. 1.7 cm right mid renal cyst. LYMPHOVASCULAR STRUCTURES: Normal caliber aorta. IVC patent. No pathologically enlarged abdominal or retroperitoneal lymphadenopathy byshort axis size criteria. Again seen is a multilobular enhancing mass in the right central mesenteryat the level of the lower pole the right kidney. This measures 2.4 x 2.0 cm transaxial by 2.1 cm craniocaudal, similar to prior studies (2.3 x 2.0cm 05/13/2019 and 2.5 x 2.1 cm 11/28/2018). Because of motion artifact, the smaller nodular component seen slightly cephalad on prior studies is notas well seen. On T2-weighted images is again seen in series 10 image , measuring 8mm, as was the case previously. PELVIS: UTERUS: Anteverted uterus has a normal configuration and measures 7.3 x3.4 x 5.6 cm (hefcjl-jm-mhcnfw x anterior-posterior x transverse). Normal endometrial thickness, 0.4 cm. Junctional zone is normal in signal and thickness. No focal uterine mass seen. There is a section scarof the lower uterine segment there is a 1.6 cm leiomyoma in the right lower uterine segment. There is a 1.1 cm leiomyoma in the left uterine body. CERVIX: Incidentally noted nabothian cyst again seen. Otherwise normal. VAGINA: Normal; no mass seen. RIGHT OVARY: The right ovary measures 2.2 x 2.1 x 2.0 cm. There is a hemorrhagic likely corpus luteum cyst in the right ovary with additionalsmall follicles. LEFT OVARY: The left ovary measures 2.8 x 1.2 x 2.1 cm. There is a 1.7cm simple cyst in the left ovary. BLADDER: Urinary bladder normal. PELVIC FREE FLUID: No free fluid or ascites. LYMPH NODES: No pathologically enlarged lymph nodes. OSSEOUS STRUCTURES: No acute or suspicious osseous abnormalities. IMPRESSION: Similar appearance of 2 adjacent well-circumscribed lobular mesentericmasses in the right mid abdomen. No new abnormality seen. Thank you for referring your patient to us, Lucian Smith MD [id number] (Electronically Signed - 01/10/2020 09:46) Copy: ZOHAIB ALDANA PA-C [facility] 1260 [facility] [address] [place], [place] [phone] Ricci Carter MD IMG LEGACY PROCEDURE S documented in this encounter Visit Diagnoses Not on filedocumented in this encounter Care Teams Strip Cutting Machine Operator Relationship Specialty Start Date End Date Zohaib Aldana PA-C 1210 [facility] 109 [place] [address] PCP - General 05/01/19 Madi Sharp MD 85 [facility] [address] [place] [address] Gastroenterology 10/02/19 documented as of this encounter
--- OUTSIDE RECORDS SUMMARY | 2023-10-29 17:51 | XMS_ITS | Encounter Summary ---
Author Organization [facility] Address [address] [place] [address] Care Team Providers Care Pediatric Neuropsychologist Name Role Phone Consuelo Hobbs PA-C Primary Care Provider Madi Sharp MD Unavailable [phone] Encounter Details Date Type Department Care Team (Late Contact Info) Description 12/26/2019 Scanned Document [facility] Cancer [place] Medical Oncology at [address] [phone] Provider, Dodie, [address] [place] [phone] Social History Tobacco Use Types Packs/Day Years [...] 7:45 AM EDT Office Visit [facility] Medical Oncology at [address] [phone] Ricci Carter MD [address] [place] [address] 11/13/2023 8:30 AM EDT Infusion [facility] Cancer [place] at [facility] Outpatient Infusion Center [address] [phone] Ricci Carter MD [address] [place] [phone] Keiko Hallman MD 80 [facility] [place] [address] 11/20/2023 11:00 AM EDT Appointment [facility] Radiology Shay Mammography [address] [place] [phone] Ricci Carter MD [address] [place] [address] 11/20/2023 11:30 AM EDT Appointment [facility] Radiology [place] [facility] [address] [place] [phone] Ricci Carter MD [address] [place] [address] 03/05/2024 11:00 AM EST Consult [facility] Cardiology [address] [place] [phone] Ricci Cartre MD [address] [place], [place] [address] Jamil Ralph MD [address] [place] [address] 05/30/2024 9:00 AM EST Office Visit [facility] Department of Internal Medicine [facility] 1210 [facility] [address] [place] [address] Consuelo Hobbs PA-C 1210 [facility] 109 [place] [address] documented as of this encounter Visit Diagnoses Not on filedocumented in this encounter Care Teams Pediatric Neuropsychologist Relationship Specialty Start Date End Date Consuelo Hobbs PA-C [address] [place] [address] PCP - General 05/01/19 Madi Sharp MD 85 [facility] [address] [place] [address] Gastroenterology 10/02/19 documented as of this encounter
--- OUTSIDE RECORDS SUMMARY | 2023-10-29 17:51 | XMS_ITS | Encounter Summary ---
Author Organization [facility] Address [address] [place] [address] Care Team Providers Care Drop Wire Stringer Name Role Phone Consuelo Hobbs PA-C Primary Care Provider Madi Sharp MD Unavailable [phone] Encounter Details Date Type Department Care Team ([facility] Contact Info) Description 10/22/2019 Orders Only [facility] Cancer [place]: Oncology and Hematology [address] [phone] Ricci Carter MD [address] [place] [address] Social History Tobacco Use Types Packs/Day Years [...] Upcoming Encounters Date Type Department Care Team ([facility] Contact Info) Description 11/13/2023 7:45 AM EDT Office Visit [facility] Medical Oncology at [address] [phone] Ricci Carter MD [address] [place], [place] [phone] 11/13/2023 8:30 AM EDT Infusion [facility] Cancer [place] at [facility] Outpatient Infusion Center [address] [phone] Ricci Carter MD [address] [facility] [place], [place] [phone] Keiko Hallman MD 80 [facility] [place] [address] 11/20/2023 11:00 AM EDT Appointment [facility] Radiology Shay Mammography [address] [place] [phone] Ricci Carter MD [address] [facility] [place], [place] [address] 11/20/2023 11:30 AM EDT Appointment [facility] Radiology Shay Mammography [address] [place] [phone] Ricci Carter MD [address] [facility] [address] [place], [place] [address] 03/05/2024 11:00 AM EST Consult [facility] Cardiology [address] [place] [phone] Ricci Carter MD 85 [facility] [place], [place] [phone] Jamil Ralph MD [address] [facility] [address] [place] [address] 05/30/2024 9:00 AM EST Office Visit [facility] Department of Internal Medicine [facility] 1210 [facility] 109 [place] [address] Consuelo Hobbs PA-C 1210 [facility] 109 [place] [address] documented as of this encounter Visit Diagnoses Not on filedocumented in this encounter Care Teams Drop Wire Stringer Relationship Specialty Start Date End Date Consuelo Hobbs PA-C [address] [place] [address] PCP - General 05/01/19 Madi Sharp MD [address] [address] Gastroenterology 10/02/19 documented as of this encounter
--- OUTSIDE RECORDS SUMMARY | 2023-10-29 17:51 | XMS_ITS | Encounter Summary ---
Author Organization [facility] Address [address] [place] [address] Care Team Providers Care Informatics Consultant Name Role Phone Consuelo Hobbs PA-C Primary Care Provider Madi Sharp MD Unavailable [phone] Encounter Details Date Type Department Care Team (Late Contact Info) Description 10/31/2019 Orders Only [facility] Cancer [place] Medical Oncology at [address] [phone] Ricci Carter MD [address] [place] [address] Social History Tobacco Use Types Packs/Day Years [...] Visit [facility] Medical Oncology at [address] [phone] Ricci Carter MD [address] [place], [place] [phone] 11/13/2023 8:30 AM EDT Infusion [facility] Cancer [place] at [facility] Outpatient Infusion Center [address] [phone] Ricci Cartre MD [address] [place], [place] [address] Keiko Hallman MD 80 [facility] [place] [address] 11/20/2023 11:00 AM EDT Appointment [facility] Radiology Shay Mammography [address] [place] [phone] Ricci Carter MD [address] [place], [place] [address] 11/20/2023 11:30 AM EDT Appointment [facility] Radiology Shay Mammography [address] [place] [phone] Ricci Carter MD [address] [place], [place] [address] 03/05/2024 11:00 AM EST Consult [facility] Cardiology [address] [place] [phone] Ricci Carter MD [address] [place], [place] [phone] Jamil Ralph MD [address] [place] [address] 05/30/2024 9:00 AM EST Office Visit [facility] Department of Internal Medicine [facility] 1210 [facility] [address] [place] [address] Consuelo Hobbs PA-C 1210 [facility] 109 [place] [address] documented as of this encounter Procedures Procedure Name Priority Date/Time Associated Diagnosis Comments LAB RESULT Routine 10/31/2019 documented in this encounter Results * LAB RESULT (10/31/2019) Ricci Carter MD HX AMB PROCEDURES documented in this encounter Visit Diagnoses Not on filedocumented in this encounter Care Teams Informatics Consultant Relationship Specialty Start Date End Date Consuelo Hobbs PA-C [address] [place] [address] PCP - General 05/01/19 Madi Sharp MD 85 [facility] 1000 [place] [address] Gastroenterology 10/02/19 documented as of this encounter
--- OUTSIDE RECORDS SUMMARY | 2023-10-29 17:51 | XMS_ITS | Encounter Summary ---
Author Organization [facility] Address [address] [place] [address] Care Team Providers Care [employer] Teacher Name Role Phone Consuelo Hobbs PA-C Primary Care Provider Madi Sharp MD Unavailable [phone] Encounter Details Date Type Department Care Team (Late Contact Info) Description 10/31/2019 Scanned Document [facility] Cancer [place] Medical Oncology at [address] [phone] Ricci Carter MD [address] [place] [address] Social History Tobacco Use Types Packs/Day Years [...] Description 11/13/2023 7:45 AM EDT Office Visit [facility] Medical Oncology at [address] [phone] Ricci Carter MD [address] [place], [place] [phone] 11/13/2023 8:30 AM EDT Infusion [facility] Cancer [place] at [facility] Outpatient Infusion Center [address] [phone] Ricci Carter MD [address] [place], [place] [phone] Keiko Hallman MD 80 [facility] [place] [address] 11/20/2023 11:00 AM EDT Appointment [facility] Radiology Shay Mammography [address] [place] [address] [phone] Ricci Carter MD [address] [place], [place] [phone] 11/20/2023 11:30 AM EDT Appointment [facility] Radiology Shay Mammography [address] [place] [phone] Ricci Carter MD [address] [place], [place] [address] 03/05/2024 11:00 AM EST Consult [facility] Cardiology [address] [place] [address] [phone] Ricci Carter MD [address] [place], [place] [phone] Jamil Ralph MD [address] [place] [address] 05/30/2024 9:00 AM EST Office Visit [facility] Department of Internal Medicine [facility] 1210 [facility] [address] [place] [address] Consuelo Hobbs PA-C 1210 [facility] [place] [facility] 109 [place] [address] documented as of this encounter Visit Diagnoses Not on filedocumented in this encounter Care Teams [employer] Teacher Relationship Specialty Start Date End Date Consuelo Hobbs PA-C [address] [place] [address] PCP - General 05/01/19 Madi Sharp MD [address] [address] Gastroenterology 10/02/19 documented as of this encounter
--- OUTSIDE RECORDS SUMMARY | 2023-10-29 17:51 | XMS_ITS | Encounter Summary ---
Author Organization [facility] Address [address] [place] [address] Care Team Providers Care Refurbish Technician Name Role Phone Consuelo Hobbs PA-C Primary Care Provider Madi Sharp MD Unavailable [phone] Encounter Details Date Type Department Care Team (Late Contact Info) Description 01/08/2020 Scanned Document [facility] [place] [address] [phone] Cardiology, Scan Social History Tobacco [...] Office Visit [facility] Cancer [place] Medical Oncology at [address] [phone] Ricci Carter MD [address] [place] [address] 11/13/2023 8:30 AM EDT Infusion [facility] [place] at [facility] Outpatient Infusion Center [address] [phone] Ricci Carter MD [address] [place] [phone] Keiko Hallman MD 80 [facility] [place] [address] 11/20/2023 11:00 AM EDT Appointment [facility] Radiology [place] Mammography 35 [place] [phone] Ricci Carter MD [address] [place] [place], [place] [phone] 11/20/2023 11:30 AM EDT Appointment [facility] Radiology [place] Mammography 35 [place] [phone] Ricci Carter MD [address] [place] [address] 03/05/2024 11:00 AM EST Consult [facility] Cardiology [place] [address] [facility] [address] [place] [phone] Ricci Carter MD [address] [place] [address] Jamil Ralph MD [address] [place] [facility] [address] [place], [place] [phone] 05/30/2024 9:00 AM EST Office Visit [facility] Department of Internal Medicine [facility] [address] [place] [phone] Consuelo Hobbs PA-C [address] [place] [address] [phone] documented as of this encounter Visit Diagnoses Not on filedocumented in this encounter Care Teams Refurbish Technician Relationship Specialty Start Date End Date Consuelo Hobbs PA-C [address] [place] [phone] PCP - General 05/01/19 Madi Sharp MD [address] [place] [address] Gastroenterology 10/02/19 documented as of this encounter
--- OUTSIDE RECORDS SUMMARY | 2023-10-29 17:51 | XMS_ITS | Encounter Summary ---
Author Organization [facility] Address [address] [place] [address] Care Team Providers Care Cryptographic Center Specialist Name Role Phone Consuelo Hobbs PA-C Primary Care Provider Encounter Details Date Type Department Care Team (Late st Contact Info) Description 09/26/2019 Orders Only [facility] Cancer [place] Medical Oncology at [address] [phone] Keiko Hallman MD 80 [facility] Med Oncology Clinic [place] [phone] Social History Tobacco Use Types Packs/Day Years [...] - - Weight 60.8 kg (134 lb) 09/26/2019 2:32 PM EDT Height 160 cm (5' 2.99) 09/26/2019 2:32 PM EDT Body Mass Index 23.74 09/26/2019 2:32 PM EDT documented in this encounter Plan of Treatment Upcoming Encounters Date Type Department Care Team (Late st Contact Info) Description 11/13/2023 7:45 AM EDT Office Visit [facility] Medical Oncology at [address] [phone] Ricci Carter MD [address] [place] [address] 11/13/2023 8:30 AM EDT Infusion [facility] at [facility] Outpatient Infusion Center [address] [phone] Ricci Carter MD [address] [place] [address] Keiko Hallman MD 80 [facility] [place] [address] 11/20/2023 11:00 AM EDT Appointment [facility] Radiology [place] Mammography [address] [place] [phone] Ricci Carter MD [address] [place] [address] 11/20/2023 11:30 AM EDT Appointment [facility] Radiology [place] Mammography [address] [place] [phone] Ricci Carter MD [address] [place] [address] 03/05/2024 11:00 AM EST Consult [facility] Cardiology [place] [address] [facility] [address] [place] [phone] Ricci Carter MD [address] [place] [address] Jamil Ralph MD [address] [place] [address] 05/30/2024 9:00 AM EST Office Visit [facility] Department of Internal Medicine [facility] 12[address] [facility] [address] [place] [address] Consuelo Hobbs PA-C 1210 [facility] 109 [place] [address] documented as of this encounter Visit Diagnoses Not on filedocumented in this encounter Care Teams Cryptographic Center Specialist Relationship Specialty Start Date End Date Consuelo Hobbs PA-C [address] [place] [address] [address] [place] [address] PCP - General 05/01/19 documented as of this encounter
--- OUTSIDE RECORDS SUMMARY | 2023-10-29 17:51 | XMS_ITS | Encounter Summary ---
Author Organization [facility] Address [address] [place] [address] Care Team Providers Care Auger Operator Name Role Phone Consuelo Hobbs PA-C Primary Care Provider Madi Sharp MD Unavailable [phone] Encounter Details Date Type Department Care Team (Latest Contact Info) Description 11/14/2019 Travel Social History Tobacco Use Types Packs/Day [...] Office Visit [facility] Cancer [place] Medical Oncology at [address] [phone] Ricci Carter MD [address] [place], [place] [phone] 11/13/2023 8:30 AM EDT Infusion [facility] [place] at [facility] Outpatient Infusion Center [address] [phone] Ricci Carter MD [address] [place], [place] [phone] Keiko Hallman MD 80 [facility] [place] [address] 11/20/2023 11:00 AM EDT Appointment [facility] Radiology [place] Mammography 35 [place] [phone] Ricci Carter MD [address] [place] [address] 11/20/2023 11:30 AM EDT Appointment [facility] Radiology Sh[place] Mammography 35 [place] [phone] Ricci Carter MD [address] [place], [place] [phone] 03/05/2024 11:00 AM EST Consult [facility] Medical [facility] Cardiology [address] [place] [address] [phone] Ricci Carter MD [address] [place], [place] [phone] Jamil Ralph MD [address] [place] [facility] [address] [place] [address] 05/30/2024 9:00 AM EST Office Visit [facility] Department of Internal Medicine [facility] [place] 1210 [facility] [address] [place] [address] Consuelo Hobbs PA-C [address] [address] documented as of this encounter Visit Diagnoses Not on filedocumented in this encounter Care Teams Auger Operator Relationship Specialty Start Date End Date Consuelo Hobbs PA-C [address] [place] [phone] PCP - General 05/01/19 Madi Sharp MD [address] [place] [address] Gastroenterology 10/02/19 documented as of this encounter
--- OUTSIDE RECORDS SUMMARY | 2023-10-29 17:51 | XMS_ITS | Encounter Summary ---
Author Organization [facility] Address [address] [place] [address] Care Team Providers Care Truck Rental Manager Name Role Phone Consuelo Hobbs PA-C Primary Care Provider Madi Sharp MD Unavailable [phone] Encounter Details Date Type Department Care Team (Latest Contact Info) Description 12/26/2019 Travel Social History Tobacco Use Types Packs/Day [...] EDT Office Visit [facility] Oncology at [address] [phone] Ricci Carter MD [address] [place], [place] [phone] 11/13/2023 8:30 AM EDT Infusion [facility] at Outpatient Infusion Center [address] [phone] Ricci Carter MD [address] [place], [place] [phone] Keiko Hallman MD 80 [facility] [place] [address] 11/20/2023 11:00 AM EDT Appointment [facility] Radiology Shay Mammography 35 [place] [phone] Ricci Carter MD [address] [place] [address] 11/20/2023 11:30 AM EDT Appointment [facility] Radiology Shay Mammography 35 [place] [phone] Ricci Carter MD [address] [place], [place] [phone] 03/05/2024 11:00 AM EST Consult [facility] Medical [facility] Cardiology [address] [place] [phone] Ricci Carter MD [address] [place], [place] [phone] Jamil Ralph MD 100 [place] [facility] [address] [place] [address] 05/30/2024 9:00 AM EST Office Visit [facility] Department of Internal Medicine [facility] 1210 [facility] [address] [place] [address] Consuelo Hobbs PA-C [address] [address] documented as of this encounter Visit Diagnoses Not on filedocumented in this encounter Care Teams Truck Rental Manager Relationship Specialty Start Date End Date Consuelo Hobbs PA-C [address] [place] [address] [phone] PCP - General 05/01/19 Madi Sharp MD [address] [place] [address] Gastroenterology 10/02/19 documented as of this encounter
--- OUTSIDE RECORDS SUMMARY | 2023-10-29 17:51 | XMS_ITS | Encounter Summary ---
Author Organization [facility] Address [address] [place] [address] Care Team Providers Care Consultant Name Role Phone Consuelo Hobbs PA-C Primary Care Provider Madi Sharp MD Unavailable [phone] Encounter Details Date Type Department Care Team (Late Contact Info) Description 10/31/2019 Scanned Document [facility] Cancer [place] Medical Oncology at [address] [phone] Ricci Carter MD [address] [place] [address] Social History Tobacco Use Types Packs/Day Years [...] Visit [facility] Medical Oncology at [address] [phone] Ricci Carter MD [address] [place], [place] [phone] 11/13/2023 8:30 AM EDT Infusion [facility] Cancer [place] at [facility] Outpatient Infusion Center [address] [phone] Ricci Carter MD [address] [place], [place] [phone] Keiko Hallman MD 80 [facility] [place] [address] 11/20/2023 11:00 AM EDT Appointment [facility] Radiology Shay Mammography [address] [place] [phone] Ricci Carter MD [address] [place], [place] [phone] 11/20/2023 11:30 AM EDT Appointment [facility] Radiology [place] Mammography [address] [place] [phone] Ricci Carter MD [address] [place], [place] [phone] 03/05/2024 11:00 AM EST Consult [facility] Cardiology [address] [place] [phone] Ricci Carter MD [address] [place], [place] [phone] Jamil Ralph MD [address] [place] [address] 05/30/2024 9:00 AM EST Office Visit [facility] Department of Internal Medicine [facility] 1210 [facility] [address] [place] [address] Consuelo Hobbs PA-C 1210 [facility] 109 [place] [address] documented as of this encounter Visit Diagnoses Not on filedocumented in this encounter Care Teams Consultant Relationship Specialty Start Date End Date Consuelo Hobbs PA-C [address] [place] [address] PCP - General 05/01/19 Madi Sharp MD [address] [address] Gastroenterology 10/02/19 documented as of this encounter
--- OUTSIDE RECORDS SUMMARY | 2023-10-29 17:51 | XMS_ITS | Encounter Summary ---
Author Organization [facility] Address [address] [place] [address] Care Team Providers Care Data Analyst Etl Developer Name Role Phone Consuelo Hobbs PA-C Primary Care Provider Madi Sharp MD Unavailable [phone] Encounter Details Date Type Department Care Team (Latest Contact Info) Description 10/24/2019 Travel Social History Tobacco Use Types Packs/Day [...] AM EDT Office Visit [facility] Cancer [place] Medical Oncology at [address] [phone] Ricci Carter MD [address] [place], [place] [phone] 11/13/2023 8:30 AM EDT Infusion [facility] Cancer [place] at [facility] Outpatient Infusion Center [address] [phone] Ricci Carter MD [address] [place], [place] [phone] Keiko Hallman MD 80 [facility] [place] [address] 11/20/2023 11:00 AM EDT Appointment [facility] Radiology Shay Mammography 35 [place] [phone] Ricci Carter MD [address] [place] [address] 11/20/2023 11:30 AM EDT Appointment [facility] Radiology Shay Mammography 35 [place] [phone] Ricci Carter MD [address] [place], [place] [address] 03/05/2024 11:00 AM EST Consult [facility] Medical [facility] Cardiology [address] [place] [address] [phone] Ricci Carter MD [address] [place], [place] [phone] Jamil Ralph MD [address] [place] [facility] [address] [place] [address] 05/30/2024 9:00 AM EST Office Visit [facility] Department of Internal Medicine [facility] [address] [facility] [address] [place] [address] Consuelo Hobbs PA-C [address] [address] documented as of this encounter Visit Diagnoses Not on filedocumented in this encounter Care Teams Data Analyst Etl Developer Relationship Specialty Start Date End Date Consuelo Hobbs PA-C [address] [place] [phone] PCP - General 05/01/19 Madi Sharp MD [address] [place] [address] Gastroenterology 10/02/19 documented as of this encounter
--- OUTSIDE RECORDS SUMMARY | 2023-10-29 17:51 | XMS_ITS | Encounter Summary ---
Author Organization [facility] Address [address] [place] [address] Care Team Providers Care Csr Retail Name Role Phone Consuelo Hobbs PA-C Primary Care Provider Madi Sharp MD Unavailable [phone] Encounter Details Date Type Department Care Team ([facility] Contact Info) Description 11/25/[address] [facility] Cancer [place]: Oncology and Hematology [address] [phone] Ricci Carter MD [address] [place] [address] Social History Tobacco Use Types Packs/Day Years [...] Upcoming Encounters Date Type Department Care Team ([facility] Contact Info) Description 11/13/2023 7:45 AM EDT Office Visit [facility] Medical Oncology at [address] [phone] Ricci Carter MD [address] [place], [place] [phone] 11/13/2023 8:30 AM EDT Infusion [facility] Cancer [place] at Outpatient Infusion Center [address] [phone] Ricci Carter MD [address] [place], [place] [phone] Keiko Hallman MD 80 [facility] [place] [address] 11/20/2023 11:00 AM EDT Appointment [facility] Radiology Shay Mammography [address] [place] [phone] Ricci Carter MD [address] [place], [place] [phone] 11/20/2023 11:30 AM EDT Appointment [facility] Radiology Sh[place] Mammography [address] [place] [phone] Ricci Carter MD [address] [place], [place] [phone] 03/05/2024 11:[address] [facility] Cardiology [address] [place] [phone] Ricci Carter MD [address] [place], [place] [phone] Jamil Ralph MD [address] [place] [address] [place] [address] 05/30/2024 9:00 AM EST Office Visit [facility] Department of Internal [facility] 1210 [facility] 109 [place] [address] Consuelo Hobbs PA-C 1210 [facility] 109 [place] [address] documented as of this encounter Visit Diagnoses Not on filedocumented in this encounter Care Teams Csr Retail Relationship Specialty Start Date End Date Consuelo Hobbs PA-C [address] [place] [address] PCP - General 05/01/19 Madi Sharp MD [address] [address] Gastroenterology 10/02/19 documented as of this encounter
--- OUTSIDE RECORDS SUMMARY | 2023-10-29 17:51 | XMS_ITS | Encounter Summary ---
Author Organization [facility] Address [address] [place] [address] Care Team Providers Care Hand Packer/Packager Name Role Phone Consuelo Hobbs PA-C Primary Care Provider Encounter Details Date Type Department Care Team (Latest Contact Info) Description 06/10/2019 Travel Social History Tobacco Use Types Packs/Day [...] [facility] Medical Oncology at [address] [phone] Ricci Carter MD 85 [place] [address] 11/13/2023 8:30 AM EDT Infusion [facility] [place] [facility] Outpatient Infusion Center [address] [phone] Ricci Carter MD 85 [place] [address] Keiko Hallman MD 80 [facility] [place] [address] 11/20/2023 11:00 AM EDT Appointment [facility] Radiology [place] Mammography [address] [place] [phone] Ricci Carter MD 85 [place] [address] 11/20/2023 11:30 AM EDT Appointment [facility] Radiology [address] [phone] Ricci Carter MD 85 [place] [address] 03/05/2024 11:00 AM EST Consult [facility] Cardiology [address] [place] [phone] Ricci Carter MD [address] [place] [address] Jamil Ralph MD 100 [place] [facility] [address] [place] [address] 05/30/2024 9:00 AM EST Office Visit [facility] Department of Internal Medicine [facility] 1210 [facility] [address] [place], [place] [phone] Consuelo Hobbs PA-C 1210 [facility] [address] [place], [place] [phone] documented as of this encounter Visit Diagnoses Not on filedocumented in this encounter Care Teams Hand Packer/Packager Relationship Specialty Start Date End Date Consuelo Hobbs PA-C [address] [address] PCP - General 05/01/19 documented as of this encounter
--- OUTSIDE RECORDS SUMMARY | 2023-10-29 17:51 | XMS_ITS | Encounter Summary ---
Author Organization [facility] Address [address] [place] [address] Care Team Providers Care Cloth Finishing Range Tender Name Role Phone Consuelo Hobbs PA-C Primary Care Provider Madi Sharp MD Unavailable [phone] Reason for Visit * Episode Based Medications (Routine) - Authorized Specialty Diagnoses / Procedures Referred By Contac t Referred To Contact Diagnoses Carcinoid tumor of ileum, unspecified whether malignant (HCC) Keiko Hallman MD 80 [facility] [place] [address] [address] [phone] Referral ID Status Reason Start Date Expiration Date V isits Requested Visits Authorized [id number] Authorized 04/29/2022 11/27/2023 5 2 Encounter Details Date Type Department Care Team (Late st Contact Info) Description 12/05/2019 8:30 AM EDT Infusion [facility] Cancer [place] at [facility] Outpatient Infusion Center [address] [phone] Ricci Carter MD 85 [place] [address] Keiko Hallman MD 80 [facility] [place] [address] Carcinoid tumor of ileum, unspecified whether malignant [...] Sign Reading Time Taken Comments Blood Pressure 115/67 12/05/2019 8:20 AM EDT Pulse 81 12/05/2019 8:20 AM EDT Temperature 36.2 ??C (97.2 ??F) 12/05/2019 8:20 AM ED T Respiratory Rate 16 12/05/2019 8:20 AM EDT Oxygen Saturation 100% 12/05/2019 8:20 AM EDT Inhaled Oxygen Concentration - - Weight 62.1 kg (137 lb) 12/05/2019 8:20 AM EDT Height 160 cm (5' 2.99) 12/05/2019 8:20 AM EDT Body Mass Index 24.27 12/05/2019 8:20 AM EDT documented in this encounter Plan of Treatment Upcoming Encounters Date Type Department Care Team (Late st Contact Info) Description 11/13/2023 7:45 AM EDT Office Visit [facility] Cancer [place] Medical Oncology at [address] [phone] Ricci Carter MD 85 [place] [address] 11/13/2023 8:30 AM EDT Infusion [facility] Cancer [place] at [facility] Outpatient Infusion Center [address] [phone] Ricci Carter MD [address] [facility] [place], [place] [phone] Keiko Hallman MD 80 [facility] [place] [address] 11/20/2023 11:00 AM EDT Appointment [facility] Radiology Shay Mammography [address] [place] [phone] Ricci Carter MD [address] [facility] [place], [place] [address] 11/20/2023 11:30 AM EDT Appointment [facility] Radiology Shay Mammography 35 [place] [phone] Ricci Carter MD [address] [facility] [place], [place] [address] 03/05/2024 11:00 AM EST Consult [facility] Cardiology [address] [place] [phone] Ricci Carter MD [address] [facility] [place], [place] [phone] Jamil Ralph MD 100 [facility] [address] [place], [place] [address] 05/30/2024 9:00 AM EST Office Visit [facility] Department of Internal Medicine [address] [place] [address] Consuelo Hobbs PA-C [address] [address] documented as of this encounter Visit Diagnoses Diagnosis Carcinoid tumor of ileum, unspecified whether malignant (HCC)- Primary documented in this encounter Administered Medications Inactive Administered Medications - up to 1 most recent administrations Medication Order MAR Action Action Date Dose Rate Site octreotide (SandoSTATIN LAR) IM injection 40 mg 40 mg, Intramuscular, Once, On Marcelle 12/05/19 at 0930, For 1 dose, Administer IM intragluteal (avoid deltoid administration). For intraMUSCULAR use ONLY. Must be administered immediately after mixing. Given 12/05/2019 8:42 AM EDT 40 mg Right Gluteal Upper Outer Quadrant documented in this encounter Care Teams Cloth Finishing Range Tender Relationship Specialty Start Date End Date Consuelo Hobbs PA-C [address] [address] PCP - General 05/01/19 Madi Sharp MD [address] [address] Gastroenterology 10/02/19 documented as of this encounter
--- OUTSIDE RECORDS SUMMARY | 2023-10-29 17:51 | XMS_ITS | Encounter Summary ---
Author Organization [facility] Address [address] [place] [address] Care Team Providers Care Veterinary Surgery Technician Name Role Phone Consuelo Hobbs PA-C Primary Care Provider Reason for Referral * (Routine) - Closed Specialty Diagnoses / Procedures Referred By Vineet campbell Referred To Contact Diagnoses Carcinoid tumor of ileum, unspecified whether malignant (HCC) Procedures Colonoscopy Madi Sharp MD [address] [place] [address] Referral ID Status Reason Start Date Expiration Date Visits Re quested Visits Authorized [id number] Closed 06/10/2019 06/10/2020 1 1 Reason for Visit * Reason Comments Follow-up per oncologist Encounter Details Date Type Department Care Team (Late st Contact Info) Description 06/10/2019 8:00 AM EDT Office Visit [facility] [address] [place] [phone] Madi Sharp MD [address] [place] [phone] Carcinoid tumor of ileum, unspecified whether malignant (Primary Dx); Diarrhea, unspecified type Social History Tobacco Use [...] Sign Reading Time Taken Comments Blood Pressure 130/80 06/10/2019 7:59 AM EDT Pulse - - Temperature - - Respiratory Rate - - Oxygen Saturation - - Inhaled Oxygen Concentration - - Weight 63 kg (139 lb) 06/10/2019 7:59 AM EDT Height 160 cm (5' 3) 06/10/2019 7:59 AM EDT Body Mass Index 24.62 06/10/2019 7:59 AM EDT documented in this encounter Progress Notes * Madi Sharp MD - 06/10/2019 8:00 AM EDT [facility] [address] [facility] [phone] 06/10/2019 Assessment & Plan Assessment: 1. Hx carcinoid - [id number] - on octreotide 2. Chronic diarrhea 3. Hx CCY Plan: 1. Repeat colonoscopy for staging 2. Colestipol for bile acid diarrhea 3. Rx for rifaximin given to patient for IBS - D. 4. Cont annual MRI for carcinoid 5. F/u after endoscopy Orders Placed This Encounter ??? Colonoscopy ??? lpfuks-isyivbchz-nkjbyeivl sulfates (Suprep Bowel Prep Kit) 17.5-3.13-1.6 GM/177ML Solution solution ??? rifAXimin (XIFAXAN) 550 MG tablet ??? colestipol (COLESTID) 1 g tablet Subjective Rody Sotelo is a 49 y.o. female who is being evaluated for f/u of chronic diarrhea and fY2X0N0 carcinoid. Last seen in 10/2017. Pt started on Questran and then lost to f/u. Per the patient, Questran was nothelpful at all. She is also been on Bentyl and Lomotil in the past, neither of which have worked. She remains on paregoric, Imodium as needed, and Sandostatin both monthly and short acting as needed.She has 4-8 bowel movements per day without any blood or mucus. Her last colonoscopy was in 2018 and was unremarkable. 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 Complete surgical removal resection is not an option at this time due to location/proximity to vessels. She is maintained on Sandostatin Q3 wk, Imodium, paregoric, and prn octreotide - short acting. She isw also on Creon although no hx of PI. She has a hx of cholecystectomy (2016). No fam hx of CRC. Her most recent MRI last month was WNL perpt report. She follows with Dr Carter. She does have GERD for which she is on famotidine. No dysphagia. EGD/colon done 10/2017 - WNL. Repeat colonoscopy in 5 yrs. MRE 11/2017 was WNL - no evidence of any masses. EGD, colonoscopy done in 2015 ([facility]) - unremarkable for H pylori, celiac, neoplasm, microscopic colitis or other. She is lactose intolerant. ROS Review of Systems All other systems reviewed and are negative. Complete GI ROS otherwise negative except as noted above. Past Medical History Past Medical History: Diagnosis Date ??? Cancer (HCC) ??? IBS (irritable bowel syndrome) ??? Migraines Past Surgical History Past Surgical History: Procedure Laterality Date ??? HEMICOLECTOMY Right ??? TONSILECTOMY, ADENOIDECTOMY, BILATERAL MYRINGOTOMY AND TUBES GI Procedural History Medications Outpatient Medications Marked as Taking for the 06/10/19 encounter (Office Visit) with Madi Sharp MD: ??? CREON [address] Leona restrepo, , Disp: , Rfl: ??? famotidine (PEPCID) 40 MG tablet, Take 40 mg by mouth 2 (two) times a day., Disp: , Rfl: ??? loperamide (IMODIUM A-D) 2 MG capsule, Take 2 mg by mouth 4 (four) times a day as needed for diarrhea., Disp: , Rfl: ??? octreotide (SandoSTATIN LAR) 10 MG IM injection, Inject 10 mg into the shoulder, thigh, or buttocks every 28 days (4 weeks)., Disp: , Rfl: ??? paregoric 2 MG/5ML solution, , Disp: , Rfl: ??? rizatriptan (MAXALT-DIRECTOR OF REVENUE) 10 MG disintegrating tablet, DISSOLVE ONE TABLET BY MOUTH EVERY DAY ASNEEDED, Disp: 9 tablet, Rfl: 0 Allergies Allergies Allergen Reactions ??? Cefaclor GI Intolerance/Nausea/Vomiting ??? Erythromycin GI Intolerance/Nausea/Vomiting Objective Vitals: 06/10/19 0759 BP: 130/80 BP Location: Right arm Weight: 63 kg (139 lb) Height: 1.6 m (5' 3) Body mass index is 24.62 kg/m??. General appearance: alert and cooperative Eyes: conjunctivae/corneas clear. No icterus ENT: No lymphadenopathy. Moist mucous membranes Lungs: clear to auscultation bilaterally Heart: regular rate and rhythm, S1, S2 normal, no murmur, click, rub or gallop Abdomen: Soft nontender nondistended, BS+ Extremities: extremities normal, atraumatic, no cyanosis or edema Skin: Skin color, texture, turgor normal. No stigmata of chronic liver disease Neurologic: Grossly normal, no asterixis. Recent Labs and Tests Lab Results Component Value Date WBC 7.5 10/14/2017 HGB 11.7 10/14/2017 HCT 34.6 (L) 10/14/2017 MCV 89 10/14/2017 PLT 198 10/14/2017 Lab Results Component Value Date GLUC 91 10/14/2017 CALCIUM 9.0 10/14/2017 NA 139 10/14/2017 K 4.2 10/14/2017 CO2 28 10/14/2017 CL 101 10/14/2017 BUN 10 10/14/2017 CREAT 0.7 10/14/2017 Lab Results Component Value Date ALT 17 10/14/2017 AST 31 10/14/2017 ALKPHOS 55 10/14/2017 BILITOT 0.3 10/14/2017 No results found for: INR No results found for: TSH No results found for: LIPASE No results found for: CRP Recent Imaging MRI - 11/2018 - 2 mesenteric masses - stable in size - may represent chronic LAD. No new masses. documented in this encounter Plan of Treatment Upcoming Encounters Date Type Department Care Team (Late st Contact Info) Description 11/13/2023 7:45 AM EDT Office Visit [facility] Medical Oncology at [address] [phone] Ricci Carter MD [address] [place], [place] [phone] 11/13/2023 8:30 AM EDT Infusion [facility] Cancer [place] at [facility] Outpatient Infusion Center [address] [phone] Ricci Carter MD [address] [place], [place] [phone] Keiko Hallman MD 80 [facility] [place] [address] 11/20/2023 11:00 AM EDT Appointment [facility] Radiology [facility] [address] [place] [phone] Ricci Carter MD [address] [place], [place] [phone] 11/20/2023 11:30 AM EDT Appointment [facility] Radiology [facility] [address] [place] [address] [phone] Ricci Carter MD [address] [place], [place] [phone] 03/05/2024 11:00 AM EST Consult [facility] Cardiology [address] [place] [phone] Ricci Carter MD [address] [place] [address] Jamil Ralph MD [address] [facility] [address] [place] [address] 05/30/2024 9:00 AM EST Office Visit [facility] Department of Internal Medicine [facility] [address] [address] Consuelo Hobbs PA-C [address] [address] Scheduled Orders Name Type Priority Associated Diagnoses Orde r Schedule Colonoscopy Procedures Routine Carcinoid Tumor Of Ileum, Unspecified Whether Malignant (Hcc) Expected: 06/25/2019, Expires: 06/09/2020 documented as of this encounter Visit Diagnoses Diagnosis Carcinoid tumor of ileum, unspecified whether malignant (HCC)- Primary Diarrhea, unspecified type documented in this encounter Care Teams Veterinary Surgery Technician Relationship Specialty Start Date End Date Consuelo Hobbs PA-C [address] [place] [address] PCP - General 05/01/19 documented as of this encounter
--- OUTSIDE RECORDS SUMMARY | 2023-10-29 17:51 | XMS_ITS | Encounter Summary ---
Author Organization [facility] Address [address] [place] [address] Care Team Providers Care Intensive Care Anaesthetist Name Role Phone Zohaib Aldana PA-C Primary Care Provider Madi Sharp MD Unavailable [phone] Encounter Details Date Type Department Care Team (Late Contact Info) Description 01/09/2020 Orders Only [facility] [address] [place] [address] Ricci Carter MD [address] [place], [place] [phone] Social History Tobacco Use Types Packs/Day Years [...] Orthopaedics & Sports Medicine Medical Oncology at [address] [phone] Ricci Carter MD [address] [place] [address] 11/13/2023 8:30 AM EDT Infusion [facility] Cancer [place] at [facility] Outpatient Infusion Center [address] [phone] Ricci Carter MD [address] [place], [place] [phone] Keiko Hallman MD 80 [facility] [place] [address] 11/20/2023 11:00 AM EDT Appointment [facility] Radiology [facility] [address] [place] [address] [phone] Ricci Carter MD [address] [place], [place] [phone] 11/20/2023 11:30 AM EDT Appointment [facility] Radiology [facility] [address] [place] [address] [phone] Ricci Carter MD [address] [place], [place] [phone] 03/05/2024 11:00 AM EST Consult [facility] Cardiology [address] [place] [address] [phone] Ricci Carter MD [address] [place], [place] [phone] Jamil Ralph MD [address] [place] [address] 05/30/2024 9:00 AM EST Office Visit [facility] Department of Internal Medicine [facility] 1210 [facility] [address] [place], [place] [phone] Zohaib Aldana PA-C 1210 [facility] [address] [place] [address] documented as of this encounter Procedures Procedure Name Priority Date/Time Associated Diagnosis Comments MR ABDOMEN WITH AND WITHOUT CONTRAST Routine 01/10/2020 9:46 AM EDT documented in this encounter Results * MR ABDOMEN WITH AND WITHOUT CONTRAST (01/10/2020 9:46 AM EDT) Anatomical Region Laterality Modality Other 01/09/2020 8:15 AM EDT 01/09/2020 8:15 AM EDT Impressions 01/10/2020 9:46 AM EDT Similar appearance of 2 adjacent well-circumscribed lobular mesenteric masses in the right mid abdomen. No new abnormality seen. Thank you for referring your patient to us, Lucian Smith MD [phone] (Electronically Signed - 01/10/2020 09:46) Copy: ZOHAIB ALDANA PA-C [facility] [address] [facility] [address] [place], [place] [phone] Narrative 01/10/2020 9:46 AM EDT EXAMINATION: MRI [...] measures 7.3 x 3.4 x 5.6 ??cm (gdiofq-rh-xtjdaq x anterior-posterior x transverse). Normal endometrial thickness, [...] and measures 7.3 x3.4 x 5.6 cm (ytyxxo-cg-cvplws x anterior-posterior x transverse). Normal endometrial thickness, [...] your patient to us, Lucian Smith MD [id number] (Electronically Signed - 01/10/2020 09:46) Copy: ZOHAIB ALDANA PA-C [facility] 1260 [facility] [address] [place], [place] [phone] Ricci Carter MD IMG LEGACY PROCEDURE S documented in this encounter Visit Diagnoses Not on filedocumented in this encounter Care Teams Intensive Care Anaesthetist Relationship Specialty Start Date End Date Zohaib Aldana PA-C 1210 [facility] [address] [place] [address] PCP - General 05/01/19 Madi Sharp MD 85 [facility] [address] [place] [address] Gastroenterology 10/02/19 documented as of this encounter
--- OUTSIDE RECORDS SUMMARY | 2023-10-29 17:52 | XMS_ITS | Encounter Summary ---
Author Organization [facility] Address [address] [place] [address] Care Team Providers Care Rehabilitation Manager Name Role Phone Latoya Alcaraz MD Primary Care Provider [phone] Consuelo Hobbs PA-C Primary Care Provider Madi Sharp MD Unavailable [phone] Encounter Details Date Type Department Care Team (Late st Contact Info) Description 09/02/2016 Scanned Document [facility] Surgical Oncology [place] [address] [facility] [address] [place] [address] Ricci Carter MD [address] [place] [address] Social History Tobacco Use Types Packs/Day Years [...] Visit [facility] Cancer [place] Medical Oncology at [address] [place] [phone] Ricci Carter MD [address] [place] [address] 11/13/2023 8:30 AM EDT Infusion [facility] Cancer [place] at [facility] Outpatient Infusion Center [address] [phone] Ricci Carter MD [address] [place], [place] [phone] Keiko Hallman MD 80 [facility] [place] [address] 11/20/2023 11:00 AM EDT Appointment [facility] Radiology [facility] M[facility] [address] [place] [address] [phone] Ricci Carter MD [address] [place], [place] [phone] 11/20/2023 11:30 AM EDT Appointment [facility] Radiology [facility] [address] [place] [phone] Ricci Carter MD [address] [place] [phone] 03/05/2024 11:00 AM EST Consult [facility] Medical [facility] Cardiology [address] [place] [phone] Ricci Carter MD [address] [place], [place] [phone] Jamil Ralph MD [address] [facility] [address] [place] [address] 05/30/2024 9:00 AM EST Office Visit [facility] Department of Internal Medicine [facility] [address] [place] [address] Consuelo Hobbs PA-C [address] [place] [address] documented as of this encounter Visit Diagnoses Not on filedocumented in this encounter Care Teams Rehabilitation Manager Relationship Specialty Start Date End Date Latoya Alcaraz MD [address] [place] [phone] PCP - General Internal Medicine 02/16/16 04/30/19 Consuelo Hobbs PA-C [address] [place] [address] PCP - General 05/01/19 Madi Sharp MD [address] [place] [address] Gastroenterology 10/02/19 documented as of this encounter
--- OUTSIDE RECORDS SUMMARY | 2023-10-29 17:52 | XMS_ITS | Encounter Summary ---
Author Organization [facility] Address [address] [place] [address] Care Team Providers Care Color Control Operator Name Role Phone Latoya Alcaraz MD Primary Care Provider Reason for Visit * Reason Comments Medication Refill Encounter Details Date Type Department Care Team (Late Contact Info) Description 03/01/[address] [facility] [place] [address] Corinna Estevez R, INCINERATOR PLANT SUPERVISOR [address] [facility] [address] [place] [address] Migraine with status migrainosus, not intractable, unspecified [...] 11/13/2023 7:45 AM EDT Office Visit [facility] Cancer [place] [facility] Oncology at [address] [phone] Ricci Carter MD [address] [place] [address] 11/13/2023 8:30 AM EDT Infusion [facility] Outpatient Infusion Center [address] [phone] Ricci Carter MD [address] [place], [place] [phone] Keiko Hallman MD 80 [facility] [place] [address] 11/20/2023 11:00 AM EDT Appointment [facility] Radiology [facility] Mamm[facility] [address] [place] [address] [phone] Ricci Carter MD [address] [place] [address] 11/20/2023 11:30 AM EDT Appointment [facility] Radiology [facility] [address] [place] [phone] Ricci Carter MD [address] [place], [place] [phone] 03/05/2024 11:00 AM EST Consult [facility] Cardiology [place] [address] [facility] [address] [place] [phone] Ricci Carter MD [address] [place], [place] [phone] Jamil Ralph MD [address] [facility] [address] [place], [place] [phone] 05/30/2024 9:00 AM EST Office Visit [facility] Department of Internal Medicine [facility] 1210 [facility] [address] [place] [phone] Consuelo Hobbs PA-C [address] [phone] documented as of this encounter Visit Diagnoses Diagnosis Migraine with status migrainosus, not intractable, unspecified migraine type documented in this encounter Care Teams Color Control Operator Relationship Specialty Start Date End Date Latoya Alcaraz MD [address] [place], [place] [phone] PCP - General Internal Medicine 02/16/16 04/30/19 documented as of this encounter
--- OUTSIDE RECORDS SUMMARY | 2023-10-29 17:52 | XMS_ITS | Encounter Summary ---
Author Organization [facility] Address [address] [place] [address] Care Team Providers Care Food Service Specialist Name Role Phone Unavailable Primary Care Provider Unavailabl e Encounter Details Date Type Department Care Team Description 11/15/2018 4:21 PM EDT - 11/15/2018 11:59 PM EDT Hospital Encounter [facility] [address] [address] Iman Smyth PA-C [facility] [place] [address] Myalgia (Primary Dx) Discharge Disposition: Home or Self Care Social History Tobacco Use Types Packs/Day Years Used Date Smoking Tobacco: Some Days Alcohol Use Standard Drinks/Week Comments Yes 28 (1 standard drink = 0.6 oz pu re alcohol) Sex and Gender Information Value Date Recorded Sex Assigned at Not on file Gender Identity Not on file Sexual Orientation Not on file documented as of this encounter Medications at Time of Discharge Medication Sig Dispensed Refills Start Date End Date CAFERGOT 1-100 MG per tablet 6 07/30/2015 HYDROcodone-acetaminophen (NORCO) 5-325 MG per tablet Take 1 tablet by mouth every 6 (six) hours as needed for pain. 0 paregoric 2 MG/5ML solution 0 08/12/2015 rizatriptan (MAXALT-MACHINE BASTER) 10 MG disintegrating tablet 0 07/31/2015 traZODone (DESYREL) 150 MG tablet 0 07/30/2015 documented as of this encounter Plan of Treatment Not on file documented as of this encounter Procedures Procedure Name Priority Date/Time Associated Diagnosis Comments ANAPLASMA/EHRLICHIA PCR, B Routine 11/15/2018 9:00 AM EDT Myalgia LYME ANTIBODY (IGM,IGG) SCREEN WITH REFLEX IMMUNOBLOT Routine 11/15/2018 9:00 AM EDT Myalgia BABESIA SPECIES PCR Routine 11/15/2018 9 :00 AM EDT documented in this encounter Results * Babesia Species, PCR (11/15/2018 9:00 AM EDT) Babesia microti DNA, Real-Time PCR NOT DETECTED 11/19/2018 7:39 PM EDT [facility] Comment: <<NOTE>> REFERENCE RANGE: NOT DETECTED This test was developed and its analytical performance characteristics have been determined by [facility]. It has not been cleared or approved by FDA. This assay has been validated pursuant to the CLIA regulations and is used for clinical purposes. Test Performed at: [facility] [address] [place] [address] ??[id number] ? H Magdy Robledo MD 11/15/2018 9:00 AM EDT 11/15/2018 4:00 PM EDT Iman Smyth PA-C IMMUNOLOGY ORDERABL ES [facility] [address] [place] [address] (CLIA #[id number]) ([id number]) [place] [address] * Anaplasma/Ehrlichia PCR, B (11/15/2018 9:00 AM EDT) Anaplasma Phagocytophilum by PCR Not Detected 11/19/2018 11:30 AM EDT [facility] Ehrlichia Chaffeensis by PCR Not Detected 11/19/2018 11:30 AM EDT [facility] Ehrlichia ewingii/canis by PCR Not Detected 11/19/2018 11:30 AM EDT [facility] Ehrlichia muris-like by PCR Not Detected 11/19/2018 11:30 AM EDT [facility] Comment: <<NOTE>> INTERPRETIVE INFORMATION: ??Ehrlichia and Anaplasma Species by PCR ?? A negative result does not rule out the presence of PCR inhibitors in the patient specimen or test-specific nucleic acid in concentrations below the level of detection by this assay. Test developed and characteristics determined by [facility]. See Compliance Statement B: [employer] Performed by [facility], ? [address], [facility] [place] [address] ? [email or web address], [place] Pat MD - Lab. Director 11/15/2018 9:00 AM EDT 11/15/2018 4:00 PM EDT Iman Smyth PA-C IMMUNOLOGY ORDERJUAN ALFORD Performing Organization Address [place] de Phone Number [facility] [address] [place] [address] (CLIA #[id number]) ([id number]) [place] [address] * Lyme Antibody (IgM,IgG) Screen with Reflex Immunoblot (11/15/2018 9:00 AM EDT) [facility] Lyme Ab, IgM NEGATIVE NEG 11/16/2018 10:11 AM EDT [facility] Lyme Ab, IgG NEGATIVE NEG 11/16/2018 10:11 AM EDT [facility] Comment: Antibodies not detected, but cannot rule out early infection. ??If clinically indicated repeat testing in 2-3 weeks. Performed at [address] [address] Han Tian Jr, MD Director CLIA [id number] ??CL 0623 11/15/2018 9:00 AM EDT 11/15/2018 4:00 PM EDT Iman Smyth PA-C IMMUNOLOGY ORDERABL ES Performing Organization Address [place] Co de Phone Number [facility] [address] [place] [address] (CLIA #[id number]) ([id number]) [place] [address] documented in this encounter Visit Diagnoses Diagnosis Myalgia- Primary Unspecified myalgia and myositis documented in this encounter
--- OUTSIDE RECORDS SUMMARY | 2023-10-29 17:52 | XMS_ITS | Encounter Summary ---
Author Organization [facility] Address [address] [place] [address] Care Team Providers Care Vegetable Picker Name Role Phone Latoya Alcaraz MD Primary Care Provider [phone] Consuelo Hobbs PA-C Primary Care Provider Madi Sharp MD Unavailable [phone] Reason for Visit * Reason Comments Medication Refill Encounter Details Date Type Department Care Team (Late st Contact Info) Description 09/27/2016 Refill [facility] [address] Corinna Estevez, REGISTRY NURSE [address] [address] Migraine with status migrainosus, not intractable, unspecified [...] [facility] Medical Oncology at [address] [phone] Ricci Carter MD [address] [place] [address] 11/13/2023 8:30 AM EDT Infusion [facility] [place] at [facility] [address] [phone] Ricci Carter MD [address] [place], [place] [phone] Keiko Hallman MD 80 [facility] [place] [address] 11/20/2023 11:00 AM EDT Appointment [facility] Radiology [facility] [address] [place] [address] [phone] Ricci Carter MD [address] [place] [phone] 11/20/2023 11:30 AM EDT Appointment [facility] Radiology [facility] [address] [place] [address] [phone] Ricci Carter MD [address] [place] [id number] 03/05/2024 11:00 AM EST Consult [facility] Cardiology [address] [place] [address] [phone] Ricci Carter MD [address] [place] [id number] Jamil Ralph MD [address] [place] [phone] 05/30/2024 9:00 AM EST Office Visit [facility] Department of Internal Medicine [facility] [place] 1210 [facility] 109 [place] [address] Consuelo Hobbs PA-C 1210 [facility] 109 [place] [address] documented as of this encounter Visit Diagnoses Diagnosis Migraine with status migrainosus, not intractable, unspecified migraine type documented in this encounter Care Teams Vegetable Picker Relationship Specialty Start Date End Date Latoya Alcaraz MD 85 [facility] [address] [place] [address] PCP - General Internal Medicine 02/16/16 04/30/19 Consuelo Hobbs PA-C [address] [place] [address] PCP - General 05/01/19 Madi Sharp MD 85 [facility] [address] [place] [phone] Gastroenterology 10/02/19 documented as of this encounter
--- OUTSIDE RECORDS SUMMARY | 2023-10-29 17:52 | XMS_ITS | Encounter Summary ---
Author Organization [facility] Address [address] [place] [address] Care Team Providers Care Wired Music Operator Name Role Phone Latoya Alcaraz MD Primary Care Provider [phone] Reason for Visit * Reason Comments Follow-up Encounter Details Date Type Department Care Team (Late st Contact Info) Description 02/16/2016 9:30 AM EST Office Visit [facility] Surgical Oncology [address] [address] Jerrod Evans MD [address] [place] [address] Carcinoid tumor of ileum (Primary Dx) Social History Tobacco Use [...] Sign Reading Time Taken Comments Blood Pressure 118/82 02/16/2016 9:22 AM EST Pulse 76 02/16/2016 9:22 AM EST Temperature - - Respiratory Rate - - Oxygen Saturation - - Inhaled Oxygen Concentration - - Weight 69.9 kg (154 lb) 02/16/2016 9:22 AM EST Height 160 cm (5' 3) 02/16/2016 9:22 AM EST Body Mass Index 27.28 02/16/2016 9:22 AM EST documented in this encounter Progress Notes * Jerrod Evans MD - 02/19/2016 9:38 AM EST Assessment & Plan 45-year-old female presenting for routine cancer surveillance. 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 Her most recent imaging shows stable disease. Her treatment at this time is with Sandostatin, which is being well-tolerated, and controlling the disease appropriately. There is nothing to do for now but to continue current therapy. I will see her back in 6 months forour next checkup. Subjective HPI: Rody returns for routine follow-up. 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 There are some known residual enlarged lymph nodes in the mesentery harboring metastatic carcinoid. Her treatment is with Sandostatin. She is tolerating the medication well. I last saw her 6 months ago in August 2015. When I saw her she was having some right abdominal pain. The pain is still there, but is not bothering her too much any longer. Her main symptoms at this time are basically fatigue. Occasionally she has diarrhea too. She is managing the diarrhea with Imodium or paregoric. Her Sandostatin dose at this time is every 3 weeks. She just had an MRI of her abdomen and pelvis at [facility] on 02/15/2016. The MRI shows stable lymphadenopathy of the root of the mesentery, and no new masses or lymph nodes or other findings. ROS: The patient denies fevers, lymphadenopathy, nausea, vomiting, shortness of breath, chest pain or palpitations, abdominal pain, diarrhea, blood in the stool, anemia, or weight loss. Objective Filed Vitals: 02/16/16 0922 BP: 118/82 Pulse: 76 Height: 1.6 m (5' 3) Weight: 69.854 kg (154 lb) Physical Exam: General: Well developed, well nourished, awake, alert and in no acute distress. Appears healthy andwell. HEENT: Normocephalic, atraumatic, extraocular movements intact, no scleral icterus, clear oropharynx, neck is supple, trachea is midline, no palpable masses. Lymphatics: No significant cervical, supraclavicular and axillary lymphadenopathy bilaterally. Respiratory: Lungs are clear to auscultation bilaterally, without wheezes, rhonchi or rales. Cardiovascular: Regular rate and rhythm, positive S1 and S2, without murmurs, gallops or rubs. Abdomen: Soft, non tender, non distended. No hepato or splenomegaly. No palpable masses. No ascitesor signs of malignancy. Well-healed midline laparotomy wound, no hernia. Skin: Exposed surfaces are within normal limits without suspicious lesions or rashes. Extremities: No deformities, edema or visible cyanosis. documented in this encounter Plan of Treatment Upcoming Encounters Date Type Department Care Team (Late st Contact Info) Description 11/13/2023 7:45 AM EDT Office Visit [facility] Medical Oncology at [address] [phone] Ricci Carter MD [address] [place] [address] 11/13/2023 8:30 AM EDT Infusion [facility] Cancer [place] at [facility]fusion Center [address] [phone] Ricci Carter MD [address] [place] [address] Keiko Hallman MD 80 [facility] [place] [address] 11/20/2023 11:00 AM EDT Appointment [facility] Radiology [facility] 35 [place] [phone] Ricci Carter MD [address] [place] [address] 11/20/2023 11:30 AM EDT Appointment [facility] Radiology [facility] [address] [place] [phone] Ricci Carter MD [address] [place], [place] [phone] 03/05/2024 11:00 AM EST Consult [facility] Cardiology [place] [address] [facility] [address] [place] [phone] Ricci Carter MD [address] [place], [place] [phone] Jamil Ralph MD [address] [place] [facility] [address] [place], [place] [id number] 05/30/2024 9:00 AM EST Office Visit [facility] Department of Internal Medicine [facility] [place] 1210 [facility] [address] [place], [place] [phone] Consuelo Hobbs PA-C 1210 [facility] [address] [place] [address] documented as of this encounter Visit Diagnoses Diagnosis Carcinoid tumor of ileum (HCC)- Primary documented in this encounter Care Teams Wired Music Operator Relationship Specialty Start Date End Date Latoya Alcaraz MD [address] [address] PCP - General Internal Medicine 02/16/16 04/30/19 documented as of this encounter
--- OUTSIDE RECORDS SUMMARY | 2023-10-29 17:52 | XMS_ITS | Encounter Summary ---
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 Evans Subjective HPI: Rody Sotelo is a 46 y.o. female who is 3 years s/p small bowel resection for small bowel carcinoid. Surgery was performed at [facility]. There are some known residual enlarged lymph nodes in the mesentery with metastatic carcinoid. At the present time, the patient is doing very well. She was having right upper quadrant pain and underwent lap nellie at [facility] about 1 month ago. She is currently pain free. She is being maintained on Sandostatin, with treatments every 3 weeks. She is tolerating the medication well. She has continued diarrhea with 10-12 bowel movements per day. She is on Paregoric but is working with GI to transition to a new medication. She has continued fatigue. Denies flushing. Tolerating a diet. Denies nausea or vomiting. Denies weight loss. Review of Systems: Denies chest pain. Denies palpitations. Denies shortness of breath. Denies feveror chills. I have reviewed the patient's pertinent past medical history, past surgical history, medications, allergies, family history and social history. Objective Constitutional: No acute distress Skin: Not jaundiced Lymph: No cervical, supraclavicular adenopathy bilaterally Cardiovascular: Heart rate regular Respiratory: Breathing nonlabored Abdomen: Soft, nontender, nondistended. Incisions well healed. No hernia or abdominal masses. No ascites. Musculoskeletal: Warm and well-perfused. No edema Neuro: Grossly non-focal Psych: Mood and affect appropriate Imaging MRI abdomen and pelvis, 2015: Stable lymphadenopathy of the root of the mesentery. No new adenopathy or visceral lesions. Assessment & Plan Rody Sotelo is doing well 3 years s/p small bowel resection for carcinoid of the small bowel. Shehas known residual disease in the mesentery lymph nodes. Imaging is stable. She is being maintainedon Sandostatin. Continue Sandostatin Follow up with medical oncology as scheduled every 2-3 months Imaging yearly, ordered by medical oncology Follow up in 6 months Ebony Nunez PA-C documented in this encounter Plan of Treatment Upcoming Encounters Date Type Department Care Team (Late st Contact Info) Description 11/13/2023 7:45 AM EDT Office Visit [facility] [place] Medical Oncology at [address] [phone] Ricci Carter MD [address] [place] [id number] 11/13/2023 8:30 AM EDT Infusion [facility] [place] at [facility] Outpatient Infusion Center [address] [phone] Ricci Carter MD [address] [place], [place] [phone] Keiko Hallman MD 80 [facility] [place] [address] 11/20/2023 11:00 AM EDT Appointment [facility] Radiology [facility] [address] [place] [address] [phone] Ricci Carter MD [address] [place], [place] [id number] 11/20/2023 11:30 AM EDT Appointment [facility] Radiology [facility] [address] [place] [phone] Ricci Carter MD [address] [place] [id number] 03/05/2024 11:00 AM EST Consult [facility] Cardiology [place] [address] [facility] [address] [place] [phone] Ricci Carter MD [address] [place] [address] Jamil Ralph MD [address] [place] [facility] [address] [place], [place] [phone] 05/30/2024 9:00 AM EST Office Visit [facility] Department of Internal [facility] 1210 [facility] 109 [place], [place] [phone] Consuelo Hobbs PA-C 1210 [facility] 109 [place], [place] [phone] documented as of this encounter Visit Diagnoses Diagnosis History of malignant carcinoid tumor of small intestine- Primary documented in this encounter Care Teams Corporate Law Assistant Relationship Specialty Start Date End Date Latoya Alcaraz MD [address] [place] [address] PCP - General Internal Medicine 02/16/16 04/30/19 documented as of this encounter
--- OUTSIDE RECORDS SUMMARY | 2023-10-29 17:52 | XMS_ITS | Encounter Summary ---
Author Organization [facility] Address 100 [place] [address] Care Team Providers Care Head School Custodian Name Role Phone Latoya Alcaraz MD Primary Care Provider [phone] Conuselo oHbbs PA-C Primary Care Provider Madi Sharp MD Unavailable [phone] Encounter Details Date Type Department Care Team (Late st Contact Info) Description 10/02/2018 Conversion Encounter [facility] RAD 85 [facility] [address] [place] [address], DBAS [address] [place] [address] Social History Tobacco Use Types Packs/Day Years [...] [facility] Medical Oncology at [address] [phone] Ricci Carter MD [address] [place], [place] [id number] 11/13/2023 8:30 AM EDT Infusion [facility] Cancer [place] at [facility] Outpatient Infusion Center [address] [phone] Ricci Carter MD [address] [place], [place] [phone] Keiko Hallman MD [address] [place] [address] [place] [address] 11/20/2023 11:00 AM EDT Appointment [facility] Radiology [facility] [address] [place] [address] [phone] Ricci Carter MD [address] [place], [place] [phone] 11/20/2023 11:30 AM EDT Appointment [facility] Radiology [facility] [address] [place] [address] [phone] Ricci Carter MD [address] [place], [place] [phone] 03/05/2024 11:00 AM EST Consult [facility] Cardiology [address] [place] [phone] Ricci Carter MD [address] [place] [address] Jamil Ralph MD [address] [place] [address] 05/30/2024 9:00 AM EST Office Visit [facility] Department of Internal Medicine [facility] [address] [facility] [address] [place] [address] Consuelo Hobbs PA-C 1210 [facility] [address] [place] [address] documented as of this encounter Procedures Procedure Name Priority Date/Time Associated Diagnosis Comments XR RT ELBOW MIN 3 VIEWS Routine 10/02/2018 12:15 PM EDT documented in this encounter Results * XR RT ELBOW MIN 3 VIEWS (10/02/2018 12:15 PM EDT) Anatomical Region Laterality Modality Other 10/02/2018 12:1 5 PM EDT 10/02/2018 12:15 PM EDT Narrative 10/02/2018 12:47 PM EDT EXAMINATION: XR ELBOW, RIGHT CLINICAL INFORMATION: Right elbow pain and lump for one week. COMPARISON: None TECHNIQUE: AP, lateral, and oblique views of the right elbow. FINDINGS: No fracture or dislocation. Mild degenerative spurring at the sublime tubercle. No lytic or blastic osseous lesion. No significant joint space narrowing. No significant joint effusion. Mild soft tissue swelling overlying the olecranon, which could represent an early olecranon bursitis in the appropriate clinical setting. Soft tissue density measuring 1.5 cm within the medial supracondylar region, which may represent a lymph node. IMPRESSION: Mild soft tissue swelling overlying the olecranon, which could represent mild olecranon bursitis in the appropriate clinical setting. Soft tissue density measuring 1.5 cm within the medial supracondylar region, which may represent a lymph node. Thank you for referring your patient to us, Dalton Bunch MD [phone] (Electronically Signed - 10/02/2018 12:47) Procedure Note Dalton Bunch MD - 10/31/2019 EXAMINATION: XR ELBOW, RIGHT CLINICAL INFORMATION: Right elbow pain and lump for one week. COMPARISON: None TECHNIQUE: AP, lateral, and oblique views of the right elbow. FINDINGS: No fracture or dislocation. Mild degenerative spurring at the sublime tubercle. No lytic or blastic osseous lesion. No significant joint space narrowing. No significant joint effusion. Mild soft tissue swellingoverlying the olecranon, which could represent an early olecranon bursitis in the appropriate clinical setting. Soft tissue density measuring 1.5 cm withinthe medial supracondylar region, which may represent a lymph node. IMPRESSION: Mild soft tissue swelling overlying the olecranon, which could representmild olecranon bursitis in the appropriate clinical setting. Soft tissue density measuring 1.5 cm within the medial supracondylarregion, which may represent a lymph node. Thank you for referring your patient to us, Dalton Bunch MD [phone] (Electronically Signed - 10/02/2018 12:47) [address] APRN IMG LEGACY PROCEDUR ES documented in this encounter Visit Diagnoses Not on filedocumented in this encounter Care Teams Head School Custodian Relationship Specialty Start Date End Date Latoya Alcaraz MD 85 [facility] 900 [place] [address] PCP - General Internal Medicine 02/16/16 04/30/19 Consuelo Hobbs PA-C [address] [address] PCP - General 05/01/19 Madi Sharp MD 85 [facility] 1000 [place] [address] Gastroenterology 10/02/19 documented as of this encounter
--- OUTSIDE RECORDS SUMMARY | 2023-10-29 17:52 | XMS_ITS | Encounter Summary ---
Author Organization [facility] Address 100 [place] [address] Care Team Providers Care Cellar Packer Name Role Phone Latoya Alcaraz MD Primary Care Provider [phone] Consuelo Hobbs PA-C Primary Care Provider Madi Sharp MD Unavailable [phone] Encounter Details Date Type Department Care Team (Late st Contact Info) Description 08/05/[address] [facility] Surgical Oncology [place] 85 [facility] [address] [place] [address] Ricci Carter MD [address] [place] [address] Social History Tobacco Use Types Packs/Day Years [...] EDT Office Visit [facility] [place] Medical Oncology at [address] [place] [phone] Ricci Carter MD 85 [place] [address] 11/13/2023 8:30 AM EDT Infusion [facility] [place] at [facility] Outpatient Infusion Center [address] [phone] Ricci Carter MD [address] [place] [phone] Keiko Hallman MD 80 [facility] [place] [address] 11/20/2023 11:00 AM EDT Appointment [facility] Radiology [facility] M[facility] [address] [place] [address] [phone] Ricci Carter MD [address] [place], [place] [phone] 11/20/2023 11:30 AM EDT Appointment [facility] Radiology [facility] [address] [place] [phone] Ricci Carter MD [address] [place] [phone] 03/05/2024 11:00 AM EST Consult [facility] Medical [facility] Cardiology [address] [place] [phone] Ricci Carter MD [address] [place], [place] [phone] Jamil Ralph MD [address] [place] [facility] [address] [place] [address] 05/30/2024 9:00 AM EST Office Visit [facility] Department of Internal [facility] [address] [place] [address] Consuelo Hobbs PA-C [address] [place] [address] documented as of this encounter Visit Diagnoses Not on filedocumented in this encounter Care Teams Cellar Packer Relationship Specialty Start Date End Date Latoya Alcaraz MD [address] [place] [phone] PCP - General Internal Medicine 02/16/16 04/30/19 Consuelo Hobbs PA-C [address] [place] [address] PCP - General 05/01/19 Madi Sharp MD [address] [place] [address] Gastroenterology 10/02/19 documented as of this encounter
--- OUTSIDE RECORDS SUMMARY | 2023-10-29 17:52 | XMS_ITS | Encounter Summary ---
Author Organization [facility] Address [address] [place] [address] Care Team Providers Care Cotton Sampler Name Role Phone Raysa Whatley APRN Primary Care Provide r Pcp, No Primary Care Provider Unavailabl e Reason for Referral * Oncology (Routine) - Closed Specialty Diagnoses / Procedures Referred By Vineet campbell Referred To Contact Surgery, Oncology / Surgical Oncology Diagnoses Carcinoid tumor of ileum (HCC) Irritable bowel syndrome Rt flank pain Ricci Carter MD [address] [place] [address] Jerrod Evans MD [address] [place] [address] Referral ID Status Reason Start Date Expiration Date V isits Requested Visits Authorized [id number] Closed Specialty Services Required 08/05/2015 02/01/2016 1 1 Encounter Details Date Type Department Care Team (Latest Contact Info) Description 08/05/2015 Transcribe Orders [facility] Surgical Oncology [place] 85 [facility] [address] [place] [address] Ricci Carter MD [address] [place] [address] Carcinoid tumor of ileum (Primary Dx); Irritable bowel syndrome; Rt flank pain Social History Tobacco Use Types Packs/Day Years Used Date Smoking Tobacco: Never Assessed Sex and Gender Information Value Date Recorded [...] [facility] Medical Oncology at [address] [phone] Ricci Carter MD [address] [place] [address] 11/13/2023 8:30 AM EDT Infusion [facility] Outpatient Infusion Center [address] [phone] Ricci Carter MD [address] [place], [place] [phone] Keiko Hallman MD 80 [facility] [place] [address] 11/20/2023 11:00 AM EDT Appointment [facility] Radiology [facility] [address] [place] [address] [phone] Ricci Carter MD [address] [place], [place] [phone] 11/20/2023 11:30 AM EDT Appointment [facility] Radiology [facility] [address] [place] [phone] Ricci Carter MD [address] [place] [address] 03/05/2024 11:00 AM EST Consult [facility] Cardiology [place] [address] [facility] [address] [place] [phone] Ricci Carter MD [address] [place] [address] Jamil Ralph MD [address] [facility] [address] [place] [address] 05/30/2024 9:00 AM EST Office Visit [facility] Department of Internal [facility] 12[address] [facility] [address] [place], [place] [phone] Consuelo Hobbs PA-C 1210 [facility] [address] [place] [address] Scheduled Referrals Name Type Priority Associated Diagnoses Order Schedule Ambulatory referral to Surgical Oncology Outpatient Referral Routine Carcinoid tumor of ileum Irritable bowel syndrome Rt flank pain Ordered: 08/05/2015 documented as of this encounter Visit Diagnoses Diagnosis Carcinoid tumor of ileum (HCC)- Primary Irritable bowel syndrome Rt flank pain Abdominal pain, unspecified site documented in this encounter Care Teams Cotton Sampler Relationship Specialty Start Date End Date Raysa Whatley APRN [address] [place] [address] [address] [place] [address] PCP - General 07/07/15 08/13/15 Pcp, No PCP - General General Medicine 08/14/15 02/15/16 documented as of this encounter
--- OUTSIDE RECORDS SUMMARY | 2023-10-29 17:52 | XMS_ITS | Encounter Summary ---
Author Organization [facility] Address [address] [place] [address] Care Team Providers Care Records Supervisor Name Role Phone Pcp, No Primary Care Provider UnavailLatoya Vu MD Primary Care Provider [phone] Consuelo Hobbs PA-C Primary Care Provider Madi Sharp MD Unavailable [phone] Encounter Details Date Type Department Care Team (Late Contact Info) Description 08/14/2015 Scanned Document [facility] Surgical Oncology [place] 85 [facility] [address] [place] [address] Provider, Dodie, [address] [place] [address] Social History Tobacco Use Types Packs/Day Years [...] [facility] Cancer [place] Medical Oncology at [address] [place] [phone] Ricci Carter MD [address] [place] [address] 11/13/2023 8:30 AM EDT Infusion [facility] Cancer [place] at [facility] Outpatient Infusion Center [address] [phone] Ricci Carter MD [address] [place] [phone] Keiko Hallman MD 80 [facility] [place] [address] 11/20/2023 11:00 AM EDT Appointment [facility] Radiology [facility] [address] [place] [address] [phone] Ricci Carter MD [address] [place], [place] [phone] 11/20/2023 11:30 AM EDT Appointment [facility] Radiology [facility] [facility] [address] [place] [phone] Ricci Carter MD [address] [place] [place] [phone] 03/05/2024 11:00 AM EST Consult [facility] Medical [facility] Cardiology [address] [place] [phone] Ricci Carter MD [address] [place] [phone] Jamil Ralph MD [address] [facility] [address] [place] [address] 05/30/2024 9:00 AM EST Office Visit [facility] Department of Internal [facility] [address] [address] Consuelo Hobbs PA-C [address] [place] [address] documented as of this encounter Visit Diagnoses Not on filedocumented in this encounter Care Teams Records Supervisor Relationship Specialty Start Date End Date Pcp, No PCP - General General Medicine 08/14/15 02/15/16 Latoya Alcaraz MD [address] [place] [phone] PCP - General Internal Medicine 02/16/16 04/30/19 Consuelo Hobbs PA-C [address] [place] [address] PCP - General 05/01/19 Madi Sharp MD [address] [address] Gastroenterology 10/02/19 documented as of this encounter
--- OUTSIDE RECORDS SUMMARY | 2023-10-29 17:52 | XMS_ITS | Encounter Summary ---
Author Organization [facility] Address [address] [place] [address] Care Team Providers Care Risk Control Specialist Name Role Phone Raysa Whatley NP Primary Care Provider Encounter Details Date Type Department Care Team (Latest Contact Info) Description 07/19/2022 Travel Social History Tobacco Use Types Packs/Day Years Used Date Smoking Tobacco: Former Cigarettes Smokeless Tobacco: Never Alcohol Use Standard Drinks/Week Comments Yes 0 (1 standard drink = 0.6 oz pur e alcohol) 4-6 drinks/week Exercise Vital Sign Answer Date Recorde d On average, how many days pe r week do you engage in moderate to strenuous exercise (like a brisk walk)? 2 days 07/19/2022 On average, how many minutes do you engage in exercise at this level? 120 min 07/19/2022 Sex and Gender Information Value Date Recorded Sex Assigned at Not on file Gender Identity Not on file Sexual Orientation Not on file COVID-19 Exposure Response Date Recorded In the last 10 days, have yo u been in contact with someone who was confirmed or suspected to have Coronavirus/COVID-19? No / Unsure 07/19/2022 10:35 AM EDT documented as of this encounter Plan of Treatment Upcoming Encounters Date Type Department Care Team (Late st Contact Info) Description 11/22/2023 11:00 AM EDT Office Visit [facility] BRAKE DRUM LATHE OPERATOR [address] [address] Delmy Beck MD [address] [place] [address] AOV, last in 07/19/22 documented as of this encounter Visit Diagnoses Not on filedocumented in this encounter Care Teams Risk Control Specialist Relationship Specialty Start Date End Date Raysa Whatley NP [address] [place] [address] PCP - General 04/08/19 documented as of this encounter
--- OUTSIDE RECORDS SUMMARY | 2023-10-29 17:52 | XMS_ITS | Encounter Summary ---
Author Organization [facility] Address [address] [place] [address] Care Team Providers Care Crown Presser Name Role Phone Mitchell Mays MD Primary Care Provider [phone] Encounter Details Date Type Department Care Team (Late st Contact Info) Description 03/20/2017 Orders Only [facility] AMB INBD INTERFACE [address] [place] [address] Provider, Generic Social History Tobacco Use Types Packs/Day Years [...] Visit [facility] Medical Oncology at [address] [phone] Ricci Carter MD [address] [place] [address] 11/13/2023 8:30 AM EDT Infusion [facility] [place] [facility] Outpatient Infusion [address] [phone] Ricci Carter MD [address] [place] [address] Keiko Hallman MD 80 [facility] [place] [address] 11/20/2023 11:00 AM EDT Appointment [facility] Radiology [place] [facility] [address] [place] [phone] Ricci Carter MD [address] [place], [place] [phone] 11/20/2023 11:30 AM EDT Appointment [facility] Radiology [address] [phone] Ricci Carter MD [address] [place], [place] [phone] 03/05/2024 11:00 AM EST Consult [facility] Medical [facility] Cardiology [address] [place] [phone] Ricci Carter MD [address] [place] [address] Jamil Ralph MD [address] [place] [address] [address] 05/30/2024 9:00 AM EST Office Visit [facility] Department of Internal Medicine [facility] 1210 [facility] [address] [place], [place] [phone] Consuelo Hobbs PA-C [facility] [facility] [address] [place] [address] documented as of this encounter Procedures Procedure Name Priority Date/Time Associated Diagnosis Comments MRI ABDOMEN W W/O CONTRAST Routine 03/20/2017 4:50 PM EST documented in this encounter Results * MRI Abdomen w w/o contrast (03/20/2017 4:50 PM EST) Anatomical Region Laterality Modality Abdomen Magnetic Resonan ce 03/20/2017 8:00 AM EST 03/20/2017 8:00 AM EST Impressions 03/20/2017 4:50 PM EST 1. Lobular enhancing mesenteric mass demonstrates only subtle interval prominence measuring 2.6 x 1.8 cm compared to 2.4 x 1.8 cm in a similar plane. 2. Stable adjacent mesenteric lymph node measuring 0.7 cm. 3. No new lesions identified. 4. Predominantly stable right renal cyst. 5. Slight interval prominence right ovary likely representing physiologic changes. 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 IBS. Status post hemicolectomy. Cholecystectomy. COMPARISON: Multiple prior MRI most recent prior dated 02/16/2016. TECHNIQUE: Multiplanar multisequence MRI obtained on a high-field magnet. 6 mL of gadavist injected intravenously. FINDINGS: Mesentery: Enhancing lobulated right parasagittal mesenteric mass noted again. It measures approximately 2.6 x 1.8 cm (series 1602 image 107/172). Compared to the previous examination, there has been only subtle interval prominence. Adjacent lymph node noted superior and medial to the mass noted again measuring approximately 0.7 cm similar to the previous examination. No new mesenteric lesions identified. No new lymphadenopathy. Lung bases: Unremarkable. Liver, gallbladder and biliary tree: ??No evidence of hepatic steatosis. No suspicious hepatic lesions identified. Normal hepatic enhancement. Normal enhancement of the portal venous system. Status post cholecystectomy. Minor prominence of the CBD likely representing a postcholecystectomy change. No evidence of intrahepatic biliary ductal dilatation. Pancreas: Unremarkable. Spleen: Unremarkable. Adrenal glands: Within normal limits. Kidneys: T2 hyperintense nonenhancing cyst medial aspect midright kidney measuring approximately 1.2 cm this was also seen on the previous examination with no significant interval change. No new renal lesions. GI tract: Redundant appearance of the transverse colon. Status post right hemicolectomy. Incomplete distention limiting the assessment of the rectosigmoid wall. Lymphovascular structures: No additional lymphadenopathy. Normal enhancement of the vascular structures. Pelvis: Small follicles bilateral ovaries. There is prominence of the right ovary measuring approximately 2.8 x 2.1 x 2.5 cm. Probable corpus luteal cyst with peripheral enhancement suspected in the right ovary (series 19 image 21). Anteverted uterus. Small nabothian cyst. Trace probable physiologic fluid noted in the pelvis. Osseous structures: No gross abnormality.. 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 IBS. Status post hemicolectomy. Cholecystectomy. COMPARISON: Multiple prior MRI most recent prior dated 02/16/2016. TECHNIQUE: Multiplanar multisequence MRI obtained on a high-field magnet. 6 mL of gadavist injected intravenously. FINDINGS: Mesentery: Enhancing lobulated right parasagittal mesenteric mass noted again. It measures approximately 2.6 x 1.8 cm (series 1602 /172). Compared to the previous examination, there has been only subtleinterval prominence. Adjacent lymph node noted superior and medial to the massnoted again measuring approximately 0.7 cm similar to the previous examination.No new mesenteric lesions identified. No new lymphadenopathy. Lung bases: Unremarkable. Liver, gallbladder and biliary tree: No evidence of hepatic steatosis.No suspicious hepatic lesions identified. Normal hepatic enhancement.Normal enhancement of the portal venous system. Status post cholecystectomy. Minor prominence of the CBD likelyrepresenting a postcholecystectomy change. No evidence of intrahepatic biliary ductal dilatation. Pancreas: Unremarkable. Spleen: Unremarkable. Adrenal glands: Within normal limits. Kidneys: T2 hyperintense nonenhancing cyst medial aspect midright kidney measuring approximately 1.2 cm this was also seen on the previousexamination with no significant interval change. No new renal lesions. GI tract: Redundant appearance of the transverse colon. Status postright hemicolectomy. Incomplete distention limiting the assessment of the rectosigmoid wall. Lymphovascular structures: No additional lymphadenopathy. Normalenhancement of the vascular structures. Pelvis: Small follicles bilateral ovaries. There is prominence of theright ovary measuring approximately 2.8 x 2.1 x 2.5 cm. Probable corpus lutealcyst with peripheral enhancement suspected in the right ovary (series 19image 21). Anteverted uterus. Small nabothian cyst. Trace probable physiologicfluid noted in the pelvis. Osseous structures: No gross abnormality.. IMPRESSION: 1. Lobular enhancing mesenteric mass demonstrates only subtle interval prominence measuring 2.6 x 1.8 cm compared to 2.4 x 1.8 cm in a similar plane. 2. Stable adjacent mesenteric lymph node measuring 0.7 cm. 3. No new lesions identified. 4. Predominantly stable right renal cyst. 5. Slight interval prominence right ovary likely representingphysiologic changes. Thank you for referring your patient to us, Juni Hunt MD [id number] (Electronically Signed - 03/20/2017 16:50) Copy: RUSTY ROBLEDO MD [facility] [place] [address] [place] [address] [phone] MITCHELL MAYS MD [facility] [place]- [address] [place] [address] [facility] [address] [place] [address] Generic Provider IMG MRI ORDERABLES documented in this encounter Visit Diagnoses Not on filedocumented in this encounter Care Teams Crown Presser Relationship Specialty Start Date End Date Mitchell Mays MD 85 [facility] 900 [place] [address] PCP - General Internal Medicine 02/16/16 04/30/19 documented as of this encounter
--- OUTSIDE RECORDS SUMMARY | 2023-10-29 17:52 | XMS_ITS | Encounter Summary ---
Author Organization [facility] Address [address] [place] [address] Care Team Providers Care Hospital Intern Name Role Phone Latoya Alcaraz MD Primary Care Provider [phone] Encounter Details Date Type Department Care Team (Late st Contact Info) Description 03/14/2017 9:00 AM EST Office Visit [facility] Surgical Oncology [address] [place] [address] Lulu Medeiros MD [phone] [place] [address] Carcinoid tumor of ileum (Primary Dx) Social [...] as of this encounter Progress Notes * Lulu Medeiros MD - 03/14/2017 2:20 PM EST Reason for Evaluation: Surveillance visit regarding metastatic carcinoid. Subjective HPI: Rody Sylvesterano is a 46 y.o. female who had seen Dr. Evans regarding right abdominal pain. 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 Her right colon and ileum had been removed but there were some residual mesenteric nodesthat were felt to be involved with carcinoid and left alone given their location. She has been treated with Sandostatin and has been maintained on that with stable disease. She did have to have her gallbladder removed this past August due to issues from the Sandostatin. She was last seen in the office on September 12, 2016. She is followed by Dr. Carter. Since her last visit, the patient has had stable disease. Her last MRI was in February and she is set up for repeat imaging next month. The patient denied any abdominal pain. She has lost about 12 pounds recently. Her appetite has beenokay. She does take medical marijuana to help with her appetite. She does continue to have loose stools and is at her baseline. She denied any bloody stools, jaundice or any other complaints. Overallshe has been doing pretty well. Objective Physical Exam: General: Well developed, well nourished, awake, alert and in no acute distress. HEENT: Normocephalic, atraumatic, extraocular movements intact, no scleral icterus. Respiratory: Nonlabored breathing, no wheezes. Abdomen: Soft, non tender, non distended. No hepato or splenomegaly. No palpable masses. Well healed scars. Skin: Exposed surfaces are within normal limits without suspicious lesions or rashes. Extremities: No deformities, edema or visible cyanosis. Assessment & Plan This is a 46 y.o. female with a history of metastatic carcinoid. The patient looked good in the office today. We discussed her weight loss issues. She did have lab recently that was all within normal limits. She did had her thyroid function checked. The patient will undergo a repeat MRI next month and we will see what that shows. She had some questions about having surgery to debulk her cancer. Dr. Evans previously mentioned given the location of her residual disease, it would be difficult to remove all the adenopathy as they are involved with some vital structures. I told her that I felt the same way. If she had progression of disease, some of it can be debulked. However, the location of the esther disease makes it hardto remove. She will otherwise undergo repeat imaging and see us back in 6 months time. documented in this encounter Plan of Treatment Upcoming Encounters Date Type Department Care Team (Late st Contact Info) Description 11/13/2023 7:45 AM EDT Office Visit [facility] Medical Oncology at [address] [phone] Ricci Carter MD [address] [place] [address] 11/13/2023 8:30 AM EDT Infusion [facility] Cancer [place] at [facility] Outpatient Infusion Center [address] [phone] Ricci Carter MD [address] [place] [address] Keiko Hallman MD 80 [facility] [place] [address] 11/20/2023 11:00 AM EDT Appointment [facility] Radiology [place] Mammography [address] [place] [phone] Ricci Carter MD [address] [place] [address] 11/20/2023 11:30 AM EDT Appointment [facility] Radiology [facility] [facility] [address] [place] [phone] Ricci Carter MD [address] [place] [address] 03/05/2024 11:00 AM EST Consult [facility] Cardiology [place] [address] [facility] [address] [place] [address] Ricci Carter MD [address] [place] [address] Jamil Ralph MD [address] [place] [facility] [address] [place], [place] [phone] 05/30/2024 9:00 AM EST Office Visit [facility] Department of Internal Medicine [facility] 1210 [facility] [address] [place], [place] [phone] Consuelo Hobbs PA-C 1210 [facility] [address] [place], [place] [phone] documented as of this encounter Visit Diagnoses Diagnosis Carcinoid tumor of ileum (HCC)- Primary documented in this encounter Care Teams Hospital Intern Relationship Specialty Start Date End Date Latoya Alcaraz MD 85 [facility] 900 [place] [address] PCP - General Internal Medicine 02/16/16 04/30/19 documented as of this encounter
--- OUTSIDE RECORDS SUMMARY | 2023-10-29 17:52 | XMS_ITS | Encounter Summary ---
Author Organization [facility] Address [address] [place] [address] Care Team Providers Care Mail Officer Name Role Phone Pcp, No Primary Care Provider UnavailLatoya Vu MD Primary Care Provider [phone] Consuelo Hobbs PA-C Primary Care Provider Madi Sharp MD Unavailable [phone] Reason for Visit * Reason Comments Medication Refill Encounter Details Date Type Department Care Team (Late st Contact Info) Description 10/21/2015 Refill [facility] [place] [address] Corinna Estevez R, OPHTHALMIC TECH [address] [address] Migraine with status migrainosus, not intractable, unspecified migraine type (Primary Dx) Social History Tobacco Use Types [...] 11/13/2023 7:45 AM EDT Office Visit [facility] Medical Oncology at [address] [phone] Ricci Carter MD [address] [place], [place] [phone] 11/13/2023 8:30 AM EDT Infusion [facility] [place] at [facility] Outpatient Infusion Center [address] [phone] Ricci Carter MD [address] [place], [place] [phone] Keiko Hallman MD 80 [facility] [place] [address] 11/20/2023 11:00 AM EDT Appointment [facility] Radiology [facility] [address] [place] [phone] Ricci Carter MD [address] [place], [place] [phone] 11/20/2023 11:30 AM EDT Appointment [facility] Radiology [facility] [address] [place] [address] Ricci Carter MD [address] [place], [place] [phone] 03/05/2024 11:00 AM EST Consult [facility] Cardiology [address] [place] [phone] Ricci Carter MD [address] [place], [place] [phone] Jamil Ralph MD [address] [place] [phone] 05/30/2024 9:00 AM EST Office Visit [facility] Department of Internal Medicine [facility] [address] [phone] Consuelo Hobbs PA-C [address] [phone] documented as of this encounter Visit Diagnoses Diagnosis Migraine with status migrainosus, not intractable, unspecified migraine type- Primary documented in this encounter Care Teams Mail Officer Relationship Specialty Start Date End Date Pcp, No PCP - General General Medicine 08/14/15 02/15/16 Latoya Alcaraz MD 85 [facility] [address] [place] [phone] PCP - General Internal Medicine 02/16/16 04/30/19 Consuelo Hobbs PA-C [address] [place] [id number] PCP - General 05/01/19 Madi Sharp MD 85 [facility] [address] [place] [address] Gastroenterology 10/02/19 documented as of this encounter
--- OUTSIDE RECORDS SUMMARY | 2023-10-29 17:52 | XMS_ITS | Encounter Summary ---
Author Organization [facility] Address [address] [place] [address] Care Team Providers Care Road Mixer Operator Name Role Phone Zohaib Aldana PA-C Primary Care Provider Encounter Details Date Type Department Care Team (Late st Contact Info) Description 05/13/2019 Orders Only [facility] [address] [place] [address], WHITE SOURER [address] [place], [place] [phone] Social History Tobacco Use Types Packs/Day Years [...] EDT Office Visit [facility] [place] Medical Oncology at [address] [phone] Ricci Carter MD [address] [place] [address] 11/13/2023 8:30 AM EDT Infusion [facility] [place] at [facility] Outpatient Infusion Center [address] [phone] Ricci Carter MD [address] [place], [place] [phone] Keiko Hallman MD 80 [facility] [place] [address] 11/20/2023 11:00 AM EDT Appointment [facility] Radiology [facility] [address] [place] [address] [phone] Ricci Carter MD [address] [place], [place] [phone] 11/20/2023 11:30 AM EDT Appointment [facility] Radiology [facility] [address] [place] [address] [phone] Ricci Carter MD [address] [place] [address] 03/05/2024 11:00 AM EST Consult [facility] Medical [facility] Cardiology [address] [place] [address] [phone] Ricci Carter MD [address] [place], [place] [phone] Jamil Ralph MD [address] [facility] [address] [place] [address] 05/30/2024 9:00 AM EST Office Visit [facility] Department of Internal Medicine [place] [phone] [facility] [address] [place] [address] Zohaib Aldana PA-C 1210 [facility] [address] [place] [address] documented as of this encounter Procedures Procedure Name Priority Date/Time Associated Diagnosis Comments MR PELVIS WITH AND WITHOUT CONTRAST Routine 05/15/2019 7:43 AM EST documented in this encounter Results * MR PELVIS WITH AND WITHOUT CONTRAST (05/15/2019 7:43 AM EST) Anatomical Region Laterality Modality Other 05/13/2019 10:1 5 AM EST 05/13/2019 10:15 AM EST Narrative 05/15/2019 7:43 AM EST [...] your patient to us, Everardo Khan MD [id number] (Electronically Signed - 05/15/2019 07:43) Copy: RICCI CARTER MD [facility] [address] [facility] [place] [address] [phone] ZOHAIB ALDANA PA-C [facility] [address] [facility] [address] [address] [phone] Procedure Note Everardo Khan MD - [...] your patient to us, Everardo Khan MD [id number] (Electronically Signed - 05/15/2019 07:43) Copy: RICCI CARTER MD [facility] [address] [place] [address] [phone] ZOHAIB ALDANA PA-C [facility] 1260 [facility] [address] [address] APRN IMG LEGACY PROCEDUR ES documented in this encounter Visit Diagnoses Not on filedocumented in this encounter Care Teams Road Mixer Operator Relationship Specialty Start Date End Date Zohaib Aldana PA-C 1210 [facility] [address] [place] [address] PCP - General 05/01/19 documented as of this encounter
--- OUTSIDE RECORDS SUMMARY | 2023-10-29 17:52 | XMS_ITS | Encounter Summary ---
Author Organization [facility] Address [address] [place] [address] Care Team Providers Care Restaurant Inspector Name Role Phone Pcp, No Primary Care Provider Unavailabl e Reason for Visit * Reason Comments Advice Only carcinoid tumor of i leum * Oncology (Routine) - Closed Specialty Diagnoses / Procedures Referred By Vineet campbell Referred To Contact Surgery, Oncology / Surgical Oncology Diagnoses Carcinoid tumor of ileum (HCC) Irritable bowel syndrome Rt flank pain Ricci Carter MD [address] [place] [address] Jerrod Evans MD [address] [place] [address] Referral ID Status Reason Start Date Expiration Date V isits Requested Visits Authorized [id number] Closed Specialty Services Required 08/05/2015 02/01/2016 1 1 Encounter Details Date Type Department Care Team (Late st Contact Info) Description 08/14/2015 3:45 PM EDT Consult [facility] Surgical Oncology [address] [address] Ricci Carter MD [address] [place] [address] Jerrod Evans MD [address] [place] [address] Abdominal wall pain in right flank (Primary Dx); Carcinoid tumor of ileum Social History Tobacco [...] Sign Reading Time Taken Comments Blood Pressure 110/68 08/14/2015 4:17 PM EDT Pulse 72 08/14/2015 4:17 PM EDT Temperature - - Respiratory Rate - - Oxygen Saturation - - Inhaled Oxygen Concentration - - Weight 69.9 kg (154 lb) 08/14/2015 4:17 PM EDT Height 160 cm (5' 3) 08/14/2015 4:17 PM EDT Body Mass Index 27.28 08/14/2015 4:17 PM EDT documented in this encounter Progress Notes * Jerrod Evans MD - 08/19/2015 5:46 PM EDT Assessment & Plan Rody Sotelo is a 45 y.o. year old female who presents with right abdominal pain. 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 From a cosmetic standpoint I told the patient that I think she is doing perfectly fine. Her diseaseis stable on the only measurable finding is some residual lymphadenopathy of the root of the mesentery. This is not growing, is not causing any obstruction, and in my opinion is not the cause of her right- sided abdominal pain. Also from a surgical standpoint I do not recommend removal of this disease at this time. So I told her that I think the abdominal pain may be from an abdominal muscle strain. Abdominal muscle injuries usually can take a long time to resolve, and it is not unheard of for them to take 3-6 months to go away altogether. Professional athletes are usually sideline with this type of injuries for weeks. I told her that the treatment here is usually conservative in nature, and includes anti-inflammatory medication, warm compresses to the affected area, and rest. But ultimately we need to buy some time to get this to resolve. She asked me if I thought adhesions from her prior operation could be causing the symptoms. I told her that certainly a possibility but is not my first choice. Even if she had adhesions there is no signs of bowel obstruction at this time. We do not operate on adhesions unless there is near completeintestinal blockage because more surgery usually makes the adhesion problems worse. I am going to keep an eye on Rody because of her prior history of carcinoid which I find interesting myself. Many of this patients need reexploration in the future for progression of disease. I plan to see her back in 6 months and continue to follow her by annually with Dr. Carter. I also told her that if her symptoms are not improved in 3 months I would like her to call me to see her on an earlier date. He was nice to meet this young lady who seems to me is quite a fighter, and I will be more than happy to help her stay healthy. Subjective HPI: Rody Sotelo is a 45 y.o. year old female who presents with right abdominal pain. She has been having right-sided abdominal pain for approximately 1 month now. The pain appears to be worse with lifting and physical activity. Symptoms are improved by laying down or taking pain medication. There is no associated nausea, vomiting, or fever with the pain episodes. The pain appears to begin at the right flank location and and radiates towards the right groin. It is not particularlystrong but it is bothersome and persistent. She has been able to continue with her work obligationsand other activities of daily living despite the symptoms. Rody has significant past medical history of abdominal surgery. This was done by Dr. Macias at [facility] back in July 2013. At that time she had a right colectomy for what turned out to be metastatic carcinoid tumor. By patient report the carcinoma arose in the ileum and there were multiple metastases to the mesenteric lymph nodes. Since that surgery 2 years ago she has been receiving treatment with monthly injections of Sandostatin. With that treatment her disease appears to be undergood control. In view of the recent pain symptoms and also for cancer surveillance she just recently had a workup. The workup included an MRI of the abdomen and pelvis plus blood work. The blood work was completely normal. A chest x-ray was also normal without evidence of metastases. The MRI was the more significant of the studies. It shows a residual mass in the root of the mesentery which is suspicious for re sidual carcinoid. The mass measures 2.4 cm in maximum diameter and is stable in size. There is no evidence for bowel obstruction, internal hernia, abdominal wall hernia, ascites or any other finding that would cause abdominal pain. Despite the pain symptoms she tells me that she feels well overall. She is regular diet, moves her bowels regularly, and her weight is stable. I have reviewed the patient's pertinent past medical history, past surgical history, medications, allergies, family history and social history. Review of Systems: Constitutional: No fever, chills, or weight loss. Has fatigue and migraines. HEENT: No headache, blurry/double vision, hoarseness, throat pain or hearing changes. Cardiovascular: No chest pain, palpitations,or leg clots. Reports history of PVCs. Respiratory: No wheezing, cough or shortness of breath. Gastrointestinal: Has abdominal pain, nausea, vomiting, diarrhea after prior GI surgery. Urologic: No urinary pain, frequency, retention, incontinence or bloody urine. Musculoskeletal: Reports chronic joint and back pain. Hematologic/Lymphatic: No bleeding disorders, swollen glands or nodes. Skin: No masses, lesions, ulcers or rashes. Breast: No masses, pain, discharge or skin changes. Neurologic: No tremors, numbness, dizziness or tingling. Endocrine: No heat/cold intolerance or excessive thirst. Psychiatric: No memory loss, confusion or anxiety. Has depression. Objective Physical Exam: Filed Vitals: 08/14/15 1617 BP: 110/68 Pulse: 72 Height: 1.6 m (5' 3) Weight: 69.854 kg (154 lb) General: Well developed, well nourished, awake, alert [...] murmurs, gallops or rubs. Abdomen: Soft, non distended, normal bowel sounds. No hepato or splenomegaly. No palpable masses. Well healed incision in the midline, no hernia. No ascites. No signs of bowel obstruction. No signs of recurrent cancer. Skin: Exposed surfaces are within normal limits without suspicious lesions or rashes. Extremities: No deformities, edema or visible cyanosis. Imaging: CXR 07/29/15 negative for lung nodules or other abnormalities. MRI Abd/Pel 07/27/15 as in HPI. Pathology: None Labs: bloodwork from 07/29/2015, cbc and CMP all wnl. Procedure: None Jerrod Evans MD documented in this encounter Plan of Treatment Upcoming Encounters Date Type Department Care Team (Late st Contact Info) Description 11/13/2023 7:45 AM EDT Office Visit [facility] Medical Oncology at [address] [phone] Ricci Carter MD [address] [place] [address] 11/13/2023 8:30 AM EDT Infusion [facility] at [facility] Outpatient Infusion Center [address] [phone] Ricci Carter MD [address] [place] [address] Keiko Hallman MD 80 [facility] [place] [address] 11/20/2023 11:00 AM EDT Appointment [facility] Radiology [facility] [address] [place] [address] Ricci Carter MD [address] [place] [address] 11/20/2023 11:30 AM EDT Appointment [facility] Radiology [facility] [address] [place] [phone] Ricci Carter MD [address] [place] [phone] 03/05/2024 11:00 AM EST Consult [facility] [place] Cardiology [address] [place] [phone] Ricci Carter MD [address] [place] [phone] Jamil Ralph MD [address] [facility] [address] [place], [place] [phone] 05/30/2024 9:00 AM EST Office Visit [facility] Department of Internal Medicine [facility] 1210 [facility] [address] [place], [place] [phone] Consuelo Hobbs PA-C 1210 [facility] [address] [place], [place] [phone] documented as of this encounter Visit Diagnoses Diagnosis Abdominal wall pain in right flank- Primary Carcinoid tumor of ileum (HCC) documented in this encounter Care Teams Restaurant Inspector Relationship Specialty Start Date End Date Pcp, No PCP - General General Medicine 08/14/15 02/15/16 documented as of this encounter
--- OUTSIDE RECORDS SUMMARY | 2023-10-29 17:52 | XMS_ITS | Encounter Summary ---
Author Organization [facility] Address [address] [place] [address] Care Team Providers Care Master Police Detective Name Role Phone Mitchell Mays MD Primary Care Provider [phone] Consuelo Hobbs PA-C Primary Care Provider Madi Sharp MD Unavailable [phone] Encounter Details Date Type Department Care Team (Late st Contact Info) Description 04/30/2018 Conversion Encounter [facility] RAD [address] [facility] [address] [place] [address] Ricci Carter MD [address] [place], [place] [id number] Social History Tobacco Use Types Packs/Day Years [...] 7:45 AM EDT Office Visit [facility] Medical Oncology at [address] [phone] Ricci Carter MD [address] [place], [place] [id number] 11/13/2023 8:30 AM EDT Infusion [facility] [place] [facility] [address] [phone] Ricci Carter MD [address] [place], [place] [id number] Keiko Hallman MD 80 [facility] [place] [address] 11/20/2023 11:00 AM EDT Appointment [facility] Radiology [facility] [address] [place] [phone] Ricci Carter MD [address] [place], [place] [id number] 11/20/2023 11:30 AM EDT Appointment [facility] Radiology [facility] [address] [place] [phone] Ricci Carter MD [address] [place], [place] [id number] 03/05/2024 11:00 AM EST Consult [facility] Cardiology [address] [place] [phone] Ricci Carter MD [address] [place] [address] Jamil Ralph MD [address] [place] [address] 05/30/2024 9:00 AM EST Office Visit [facility] Department of Internal Medicine [facility] [address] [facility] [address] [place], [place] [phone] Consuelo Hobbs PA-C 1210 [facility] [address] [place] [address] documented as of this encounter Procedures Procedure Name Priority Date/Time Associated Diagnosis Comments MR PELVIS WITH AND WITHOUT CONTRAST Routine 04/30/2018 10:00 AM EST MR ABDOMEN WITH AND WITHOUT CONTRAST Routine 04/30/2018 9:30 AM EST documented in this encounter Results * MR PELVIS WITH AND WITHOUT CONTRAST (04/30/2018 10:00 AM EST) Anatomical Region Laterality Modality Other 04/30/2018 10:0 0 AM EST 04/30/2018 10:00 AM EST Narrative 05/01/2018 9:57 PM EST EXAMINATION: MR ABDOMEN WITH AND WITHOUT CONTRAST MR PELVIS WITH AND WITHOUT CONTRAST CLINICAL INFORMATION: Restaging carcinoid. Assess for change. COMPARISON: 10/30/2017 and 12/10/2013 TECHNIQUE: Multiple routine MRI sequences through the abdomen and pelvis were obtained on a high-field 1.5 Geeta MRI before and after the uneventful administration of 6 mL of Gadavist gadolinium-based IV contrast. ??Dynamic post-contrast images were obtained. FINDINGS: LUNG BASES: Lung bases are clear. LIVER: Liver enhances normally. ??No focal lesion seen. ??Hepatic and portal veins enhance normally. GALL BLADDER AND BILIARY TREE: Status post cholecystectomy. There is prominence of the common bile duct measuring up to 8mm, which can be a common finding status post cholecystectomy. SPLEEN: Normal. ??Normal size. ??No focal lesion. PANCREAS: Normal. ADRENAL GLANDS: Normal. ??No adrenal mass. KIDNEYS AND URETERS: Symmetric bilateral renal enhancement. There is a 1.2 cm cyst of the anterior cortex of the right mid kidney. There are additional tiny 5 mm or less cortical cysts. No hydronephrosis. LYMPHOVASCULAR STRUCTURES: Normal caliber aorta. ??IVC patent. ??No pathologically enlarged abdominal or retroperitoneal lymphadenopathy by CT size criteria. BOWEL AND MESENTERY: Again seen are 2 lobular central mesenteric masses just to the right of midline line. There is an 9 mm mass anterior to the aorta. This measured 8 mm on the prior study 10/30/2017 and 9 mm on the prior CT scan 12/10/2013. Slightly inferiorly, there is a 2.4 x 2.0 cm lesion that previously measured 2.2 x 2.0 cm 10/30/2017 and 2.5 x 2.0 cm 12/10/2013. Status post right hemicolectomy. Stomach is collapsed. Small bowel is nondilated. OSSEOUS STRUCTURES: No acute or suspicious osseous abnormalities. Female PELVIS: UTERUS: ??Anteverted uterus has a normal configuration and measures 7.8 x 3.4 x 3.9 ??cm (qmeogf-ec-jrljps x anterior-posterior x transverse). Normal endometrial thickness, 0.7 cm. ?? Junctional zone is normal in signal and thickness. There is an 8 mm left fundal leiomyoma. CERVIX: Incidentally noted nabothian cysts. VAGINA: Normal; no mass seen. RIGHT OVARY: The right ovary measures 2.0 x 1.3 x 1.6 cm. ??Normal physiologic follicular cysts are seen. LEFT OVARY: The left ovary measures 2.0 x 0.9 x 2.0 cm. ??Normal physiologic follicular cysts are seen. No adnexal mass. BLADDER: Urinary bladder normal. PELVIC FREE FLUID: No free fluid or ascites. LYMPH NODES: No pathologically enlarged lymph nodes. OSSEOUS STRUCTURES: No acute or suspicious osseous abnormalities. IMPRESSION: Two central mesenteric masses, presumably lymphadenopathy, are again seen. These measure minimally larger, 1-2 mm than on the prior study 10/30/2017. However, there has been no interval change compared to the prior study 12/10/2013. The minimal variations in measurements presumably represent technical differences between the irregular shape of the lesions and differences in slice selection. No new abnormality seen. Thank you for referring your patient to us, Lucian Smith MD [id number] (Electronically Signed - 05/01/2018 21:57) Copy: MITCHELL MAYS MD [facility] [address] [facility] [address] [place], [place] [id number] Procedure Note Lucian Smith MD - 11/11/2019 EXAMINATION: MR ABDOMEN WITH AND WITHOUT CONTRAST MR PELVIS WITH AND WITHOUT CONTRAST CLINICAL INFORMATION: Restaging carcinoid. Assess for change. COMPARISON: 10/30/2017 and 12/10/2013 TECHNIQUE: Multiple routine MRI sequences through the abdomen and pelvis wereobtained on a high-field 1.5 Geeta MRI before and after the uneventfuladministration of 6 mL of Gadavist gadolinium-based IV contrast. Dynamic post-contrast images were obtained. FINDINGS: LUNG BASES: Lung bases are clear. LIVER: Liver enhances normally. No focal lesion seen. Hepatic andportal veins enhance normally. GALL BLADDER AND BILIARY TREE: Status post cholecystectomy. There is prominence of the common bile duct measuring up to 8mm, which can be acommon finding status post cholecystectomy. SPLEEN: Normal. Normal size. No focal lesion. PANCREAS: Normal. ADRENAL GLANDS: Normal. No adrenal mass. KIDNEYS AND URETERS: Symmetric bilateral renal enhancement. There is a 1.2cm cyst of the anterior cortex of the right mid kidney. There areadditional tiny 5 mm or less cortical cysts. No hydronephrosis. LYMPHOVASCULAR STRUCTURES: Normal caliber aorta. IVC patent. No pathologically enlarged abdominal or retroperitoneal lymphadenopathy byCT size criteria. BOWEL AND MESENTERY: Again seen are 2 lobular central mesenteric massesjust to the right of midline line. There is an 9 mm mass anterior to theaorta. This measured 8 mm on the prior study 10/30/2017 and 9 mm on the priorCT scan 12/10/2013. Slightly inferiorly, there is a 2.4 x 2.0 cm lesionthat previously measured 2.2 x 2.0 cm 10/30/2017 and 2.5 x 2.0 cm 12/10/2013. Status post right hemicolectomy. Stomach is collapsed. Small bowel is nondilated. OSSEOUS STRUCTURES: No acute or suspicious osseous abnormalities. Female PELVIS: UTERUS: Anteverted uterus has a normal configuration and measures 7.8 x3.4 x 3.9 cm (byeqgi-jm-ygfkfc x anterior-posterior x transverse). Normal endometrial thickness, 0.7 cm. Junctional zone is normal in signal and thickness. There is an 8 mm left fundal leiomyoma. CERVIX: Incidentally noted nabothian cysts. VAGINA: Normal; no mass seen. RIGHT OVARY: The right ovary measures 2.0 x 1.3 x 1.6 cm. Normalphysiologic follicular cysts are seen. LEFT OVARY: The left ovary measures 2.0 x 0.9 x 2.0 cm. Normalphysiologic follicular cysts are seen. No adnexal mass. BLADDER: Urinary bladder normal. PELVIC FREE FLUID: No free fluid or ascites. LYMPH NODES: No pathologically enlarged lymph nodes. OSSEOUS STRUCTURES: No acute or suspicious osseous abnormalities. IMPRESSION: Two central mesenteric masses, presumably lymphadenopathy, are againseen. These measure minimally larger, 1-2 mm than on the prior study10/30/2017. However, there has been no interval change compared to the prior study 12/10/2013. The minimal variations in measurements presumably represent technical differences between the irregular shape of the lesions and differences in slice selection. No new abnormality seen. Thank you for referring your patient to us, Lucian Smith MD [id number] (Electronically Signed - 05/01/2018 21:57) Copy: MITCHELL MAYS MD [address] [place] [address] Ricci Carter MD IMG LEGACY PROCEDURE S * MR ABDOMEN WITH AND WITHOUT CONTRAST (04/30/2018 9:30 AM EST) Anatomical Region Laterality Modality Other 04/30/2018 9:30 AM EST 04/30/2018 9:30 AM EST Narrative 05/01/2018 9:57 PM EST EXAMINATION: MR ABDOMEN WITH AND WITHOUT CONTRAST MR PELVIS WITH AND WITHOUT CONTRAST CLINICAL INFORMATION: Restaging carcinoid. Assess for change. COMPARISON: 10/30/2017 and 12/10/2013 TECHNIQUE: Multiple routine MRI sequences through the abdomen and pelvis were obtained on a high-field 1.5 Geeta MRI before and after the uneventful administration of 6 mL of Gadavist gadolinium-based IV contrast. ??Dynamic post-contrast images were obtained. FINDINGS: LUNG BASES: Lung bases are clear. LIVER: Liver enhances normally. ??No focal lesion seen. ??Hepatic and portal veins enhance normally. GALL BLADDER AND BILIARY TREE: Status post cholecystectomy. There is prominence of the common bile duct measuring up to 8mm, which can be a common finding status post cholecystectomy. SPLEEN: Normal. ??Normal size. ??No focal lesion. PANCREAS: Normal. ADRENAL GLANDS: Normal. ??No adrenal mass. KIDNEYS AND URETERS: Symmetric bilateral renal enhancement. There is a 1.2 cm cyst of the anterior cortex of the right mid kidney. There are additional tiny 5 mm or less cortical cysts. No hydronephrosis. LYMPHOVASCULAR STRUCTURES: Normal caliber aorta. ??IVC patent. ??No pathologically enlarged abdominal or retroperitoneal lymphadenopathy by CT size criteria. BOWEL AND MESENTERY: Again seen are 2 lobular central mesenteric masses just to the right of midline line. There is an 9 mm mass anterior to the aorta. This measured 8 mm on the prior study 10/30/2017 and 9 mm on the prior CT scan 12/10/2013. Slightly inferiorly, there is a 2.4 x 2.0 cm lesion that previously measured 2.2 x 2.0 cm 10/30/2017 and 2.5 x 2.0 cm 12/10/2013. Status post right hemicolectomy. Stomach is collapsed. Small bowel is nondilated. OSSEOUS STRUCTURES: No acute or suspicious osseous abnormalities. Female PELVIS: UTERUS: ??Anteverted uterus has a normal configuration and measures 7.8 x 3.4 x 3.9 ??cm (qdgjvm-uh-zjfdhs x anterior-posterior x transverse). Normal endometrial thickness, 0.7 cm. ?? Junctional zone is normal in signal and thickness. There is an 8 mm left fundal leiomyoma. CERVIX: Incidentally noted nabothian cysts. VAGINA: Normal; no mass seen. RIGHT OVARY: The right ovary measures 2.0 x 1.3 x 1.6 cm. ??Normal physiologic follicular cysts are seen. LEFT OVARY: The left ovary measures 2.0 x 0.9 x 2.0 cm. ??Normal physiologic follicular cysts are seen. No adnexal mass. BLADDER: Urinary bladder normal. PELVIC FREE FLUID: No free fluid or ascites. LYMPH NODES: No pathologically enlarged lymph nodes. OSSEOUS STRUCTURES: No acute or suspicious osseous abnormalities. IMPRESSION: Two central mesenteric masses, presumably lymphadenopathy, are again seen. These measure minimally larger, 1-2 mm than on the prior study 10/30/2017. However, there has been no interval change compared to the prior study 12/10/2013. The minimal variations in measurements presumably represent technical differences between the irregular shape of the lesions and differences in slice selection. No new abnormality seen. Thank you for referring your patient to us, Lucian Smith MD [phone] (Electronically Signed - 05/01/2018 21:57) Copy: MITCHELL MAYS MD [facility] [address] [facility] [address] [place] [address] Procedure Note Lucian Smith MD - 11/11/2019 EXAMINATION: MR ABDOMEN WITH AND WITHOUT CONTRAST MR PELVIS WITH AND WITHOUT CONTRAST CLINICAL INFORMATION: Restaging carcinoid. Assess for change. COMPARISON: 10/30/2017 and 12/10/2013 TECHNIQUE: Multiple routine MRI sequences through the abdomen and pelvis wereobtained on a high-field 1.5 Geeta MRI before and after the uneventfuladministration of 6 mL of Gadavist gadolinium-based IV contrast. Dynamic post-contrast images were obtained. FINDINGS: LUNG BASES: Lung bases are clear. LIVER: Liver enhances normally. No focal lesion seen. Hepatic andportal veins enhance normally. GALL BLADDER AND BILIARY TREE: Status post cholecystectomy. There is prominence of the common bile duct measuring up to 8mm, which can be acommon finding status post cholecystectomy. SPLEEN: Normal. Normal size. No focal lesion. PANCREAS: Normal. ADRENAL GLANDS: Normal. No adrenal mass. KIDNEYS AND URETERS: Symmetric bilateral renal enhancement. There is a 1.2cm cyst of the anterior cortex of the right mid kidney. There areadditional tiny 5 mm or less cortical cysts. No hydronephrosis. LYMPHOVASCULAR STRUCTURES: Normal caliber aorta. IVC patent. No pathologically enlarged abdominal or retroperitoneal lymphadenopathy byCT size criteria. BOWEL AND MESENTERY: Again seen are 2 lobular central mesenteric massesjust to the right of midline line. There is an 9 mm mass anterior to theaorta. This measured 8 mm on the prior study 10/30/2017 and 9 mm on the priorCT scan 12/10/2013. Slightly inferiorly, there is a 2.4 x 2.0 cm lesionthat previously measured 2.2 x 2.0 cm 10/30/2017 and 2.5 x 2.0 cm 12/10/2013. Status post right hemicolectomy. Stomach is collapsed. Small bowel is nondilated. OSSEOUS STRUCTURES: No acute or suspicious osseous abnormalities. Female PELVIS: UTERUS: Anteverted uterus has a normal configuration and measures 7.8 x3.4 x 3.9 cm (wxaehy-zq-njvxsk x anterior-posterior x transverse). Normal endometrial thickness, 0.7 cm. Junctional zone is normal in signal and thickness. There is an 8 mm left fundal leiomyoma. CERVIX: Incidentally noted nabothian cysts. VAGINA: Normal; no mass seen. RIGHT OVARY: The right ovary measures 2.0 x 1.3 x 1.6 cm. Normalphysiologic follicular cysts are seen. LEFT OVARY: The left ovary measures 2.0 x 0.9 x 2.0 cm. Normalphysiologic follicular cysts are seen. No adnexal mass. BLADDER: Urinary bladder normal. PELVIC FREE FLUID: No free fluid or ascites. LYMPH NODES: No pathologically enlarged lymph nodes. OSSEOUS STRUCTURES: No acute or suspicious osseous abnormalities. IMPRESSION: Two central mesenteric masses, presumably lymphadenopathy, are againseen. These measure minimally larger, 1-2 mm than on the prior study10/30/2017. However, there has been no interval change compared to the prior study 12/10/2013. The minimal variations in measurements presumably represent technical differences between the irregular shape of the lesions and differences in slice selection. No new abnormality seen. Thank you for referring your patient to us, Lucian Smith MD [id number] (Electronically Signed - 05/01/2018 21:57) Copy: MITCHELL MAYS MD [address] [place] [address] Ricci Carter MD IMG LEGACY PROCEDURE S documented in this encounter Visit Diagnoses Not on filedocumented in this encounter Care Teams Master Police Detective Relationship Specialty Start Date End Date Mitchell Mays MD 85 [facility] [address] [place] [phone] PCP - General Internal Medicine 02/16/16 04/30/19 Consuelo Hobbs PA-C [facility] [address] [address] PCP - General 05/01/19 Madi Sharp MD 85 [facility] [address] [place] [address] Gastroenterology 10/02/19 documented as of this encounter
--- OUTSIDE RECORDS SUMMARY | 2023-10-29 17:52 | XMS_ITS | Encounter Summary ---
Author Organization [facility] Address [address] [place] [address] Care Team Providers Care Clinical Training Coordinator Name Role Phone Latoya Alcaraz MD Primary Care Provider [phone] Encounter Details Date Type Department Care Team (Latest Contact Info) Description 10/14/2017 Travel Social History Tobacco Use Types Packs/Day [...] [facility] Medical Oncology at [address] [phone] Ricci Carter MD [address] [place] [address] 11/13/2023 8:30 AM EDT Infusion [facility] [place] [facility]fusion [facility] [address] [phone] Ricci Carter MD [address] [place] [address] Keiko Hallman MD 80 [facility] [place] [address] 11/20/2023 11:00 AM EDT Appointment [facility] Radiology [facility] [address] [place] [address] [phone] Ricci Carter MD [address] [place] [address] 11/20/2023 11:30 AM EDT Appointment [facility] Rad[facility] [address] [place] [phone] Ricci Carter MD [address] [place] [address] 03/05/2024 11:00 AM EST Consult [facility] Cardiology [address] [place] [phone] Ricci Carter MD [address] [place] [address] Jamil Ralph MD [address] [facility] [address] [place] [address] 05/30/2024 9:00 AM EST Office Visit [facility] Department of Internal Medicine [facility] [address] [facility] [address] [place], [place] [phone] Consuelo Hobbs PA-C 1210 [facility] [address] [place] [address] documented as of this encounter Visit Diagnoses Not on filedocumented in this encounter Care Teams Clinical Training Coordinator Relationship Specialty Start Date End Date Latoya Alcaraz MD [address] [address] PCP - General Internal Medicine 02/16/16 04/30/19 documented as of this encounter
--- OUTSIDE RECORDS SUMMARY | 2023-10-29 17:52 | XMS_ITS | Encounter Summary ---
Author Organization [facility] Address [address] [place] [address] Care Team Providers Care Net Programmer Name Role Phone Mitchell Mays MD Primary Care Provider [phone] Consuelo Hobbs PA-C Primary Care Provider Bess Sharp MD Unavailable [phone] Encounter Details Date Type Department Care Team (Late st Contact Info) Description 10/30/2017 Conversion Encounter ARIE CARRIZALES RAD 85 [facility] [address] [place] [address] Ricci Carter MD [address] [place], [place] [id number] Social History Tobacco Use Types Packs/Day Years [...] [facility] Medical Oncology at [address] [phone] Ricci Carter MD [address] [place], [place] [id number] 11/13/2023 8:30 AM EDT Infusion [facility] Cancer [place] at [facility] Outpatient Infusion Center [address] [phone] Ricci Carter MD [address] [place], [place] [id number] Keiko Hallman MD 80 [facility] [place] [address] 11/20/2023 11:00 AM EDT Appointment [facility] Radiology [facility] [address] [place] [address] [phone] Ricci Carter MD [address] [place], [place] [id number] 11/20/2023 11:30 AM EDT Appointment [facility] Radiology [facility] [address] [place] [phone] Ricci Carter MD [address] [place], [place] [id number] 03/05/2024 11:00 AM EST Consult [facility] Cardiology [address] [place] [phone] Ricci Carter MD [address] [place] [address] Jamil Ralph MD [address] [place] [address] 05/30/2024 9:00 AM EST Office Visit [facility] Department of Internal Medicine [facility] 1210 [facility] [address] [place] [address] Consuelo Hobbs PA-C 1210 [facility] [address] [place] [address] documented as of this encounter Procedures Procedure Name Priority Date/Time Associated Diagnosis Comments MR PELVIS WITH AND WITHOUT CONTRAST Routine 10/30/2017 9:30 AM EDT MR ABDOMEN WITH AND WITHOUT CONTRAST Routine 10/30/2017 9:00 AM EDT documented in this encounter Results * MR PELVIS WITH AND WITHOUT CONTRAST (10/30/2017 9:30 AM EDT) Anatomical Region Laterality Modality Other 10/30/2017 9:30 AM EDT 10/30/2017 9:30 AM EDT Narrative 10/30/2017 12:42 PM EDT Examination: MR ABDOMEN WITH AND WITHOUT CONTRAST, MR PELVIS WITH AND WITHOUT CONTRAST Indication: Benign Carcinoid Tumor Of The Ileum Comparison: ??Examination is compared multiple prior studies including the oldest available 05/30/2013 CT scan and the most recent comparison 03/20/2017 MRI Technique: Multiple routine MRI sequences through the abdomen and then pelvis were obtained on a high-field 1.5 Geeta MRI. Pre and postcontrast images were evaluated. 6 mL of Gadavist intravenous contrast was utilized without incident. Findings: There are 2 relatively homogeneous well-demarcated lobular mass lesions seen within the central mesentery to the right of midline. The larger lesion measures 2.2 x 1.6 cm on the axial images with a superior to inferior length of 2.4 cm. There is a slightly more elongated nodule superomedial to this. The smaller nodule measures 0.8 x 0.9 cm in short axis images for length of 2.1 cm. The appearance is similar to the prior study and these have not significantly changed in size or character from the most recent 03/20/2017 study or oldest available 05/30/2013 CT scan study. Compared to the oldest available 2013 study these mesenteric masses may represent residual mesenteric adenopathy. The lung bases are unremarkable. Liver is homogeneous in signal with no focal hepatic lesion nor biliary ductal dilatation seen. Gallbladder surgically absent. No focal abnormalities within the visualized adrenals, pancreas, or spleen. Tiny T2 bright nonenhancing cortical cysts are incidentally noted within the kidneys. No new or bulky retroperitoneal adenopathy. Uterus is anteroverted and unremarkable. There is a thin-appearing junctional zone and endometrial cavity. No bulky adnexal mass lesion seen. Bladder is decompressed and unremarkable. Patient is status post right hemicolectomy. No obstructive changes are seen within the remaining colon and small bowel. No suspicious bony abnormality. Impression: Overall no significant interval change in the small mesenteric nodules in the proximal mesentery to the right of midline. When compared to prior most recent study this is not changed in size or character. This was present as well on the oldest available 2013 CT scan with a similar size and appearance suggesting this represents residual mesenteric adenopathy compared to the 2013 study. No new or increasing disease identified. Thank you for referring your patient to us, Cody French MD [id number] (Electronically Signed - 10/30/2017 12:42) Copy: MITCHELL MAYS MD [address] [place] [address] BESS SHARP MD [facility] [address] [facility] [address] [place] [address] [phone] Procedure Note Cody French MD - 11/16/2019 Examination: MR ABDOMEN WITH AND WITHOUT CONTRAST, MR PELVIS WITH ANDWITHOUT CONTRAST Indication: Benign Carcinoid Tumor Of The Ileum Comparison: Examination is compared multiple prior studies includingthe oldest available 05/30/2013 CT scan and the most recent wdxbpwuiqo09/18/2017 MRI Technique: Multiple routine MRI sequences through the abdomen and thenpelvis were obtained on a high-field 1.5 Geeta MRI. Pre and postcontrast imageswere evaluated. 6 mL of Gadavist intravenous contrast was utilized without incident. Findings: There are 2 relatively homogeneous well-demarcated lobular mass lesionsseen within the central mesentery to the right of midline. The larger lesion measures 2.2 x 1.6 cm on the axial images with a superior to inferiorlength of 2.4 cm. There is a slightly more elongated nodule superomedial tothis. The smaller nodule measures 0.8 x 0.9 cm in short axis images for lengthof 2.1 cm. The appearance is similar to the prior study and these have not significantly changed in size or character from the most vlxiko3003/20/2017 study or oldest available 05/30/2013 CT scan study. Compared to theoldest available 2013 study these mesenteric masses may represent residual mesenteric adenopathy. The lung bases are unremarkable. Liver is homogeneous in signal with nofocal hepatic lesion nor biliary ductal dilatation seen. Gallbladdersurgically absent. No focal abnormalities within the visualized adrenals, pancreas,or spleen. Tiny T2 bright nonenhancing cortical cysts are incidentallynoted within the kidneys. No new or bulky retroperitoneal adenopathy. Uterus is anteroverted and unremarkable. There is a thin-appearingjunctional zone and endometrial cavity. No bulky adnexal mass lesion seen. Bladderis decompressed and unremarkable. Patient is status post right hemicolectomy.No obstructive changes are seen within the remaining colon and small bowel.No suspicious bony abnormality. Impression: Overall no significant interval change in the smallmesenteric nodules in the proximal mesentery to the right of midline. When comparedto prior most recent study this is not changed in size or character. Thiswas present as well on the oldest available 2013 CT scan with a similar sizeand appearance suggesting this represents residual mesenteric adenopathycompared to the 2013 study. No new or increasing disease identified. Thank you for referring your patient to us, Cody French MD [id number] (Electronically Signed - 10/30/2017 12:42) Copy: MITCHELL MAYS MD [address] [place] [address] BESS SHARP MD [facility] [address] [facility] [address] [place] [address] Ricci Carter MD IMG LEGACY PROCEDURE S * MR ABDOMEN WITH AND WITHOUT CONTRAST (10/30/2017 9:00 AM EDT) Anatomical Region Laterality Modality Other 10/30/2017 9:00 AM EDT 10/30/2017 9:00 AM EDT Narrative 10/30/2017 12:42 PM EDT Examination: MR ABDOMEN WITH AND WITHOUT CONTRAST, MR PELVIS WITH AND WITHOUT CONTRAST Indication: Benign Carcinoid Tumor Of The Ileum Comparison: ??Examination is compared multiple prior studies including the oldest available 05/30/2013 CT scan and the most recent comparison 03/20/2017 MRI Technique: Multiple routine MRI sequences through the abdomen and then pelvis were obtained on a high-field 1.5 Geeta MRI. Pre and postcontrast images were evaluated. 6 mL of Gadavist intravenous contrast was utilized without incident. Findings: There are 2 relatively homogeneous well-demarcated lobular mass lesions seen within the central mesentery to the right of midline. The larger lesion measures 2.2 x 1.6 cm on the axial images with a superior to inferior length of 2.4 cm. There is a slightly more elongated nodule superomedial to this. The smaller nodule measures 0.8 x 0.9 cm in short axis images for length of 2.1 cm. The appearance is similar to the prior study and these have not significantly changed in size or character from the most recent 03/20/2017 study or oldest available 05/30/2013 CT scan study. Compared to the oldest available 2013 study these mesenteric masses may represent residual mesenteric adenopathy. The lung bases are unremarkable. Liver is homogeneous in signal with no focal hepatic lesion nor biliary ductal dilatation seen. Gallbladder surgically absent. No focal abnormalities within the visualized adrenals, pancreas, or spleen. Tiny T2 bright nonenhancing cortical cysts are incidentally noted within the kidneys. No new or bulky retroperitoneal adenopathy. Uterus is anteroverted and unremarkable. There is a thin-appearing junctional zone and endometrial cavity. No bulky adnexal mass lesion seen. Bladder is decompressed and unremarkable. Patient is status post right hemicolectomy. No obstructive changes are seen within the remaining colon and small bowel. No suspicious bony abnormality. Impression: Overall no significant interval change in the small mesenteric nodules in the proximal mesentery to the right of midline. When compared to prior most recent study this is not changed in size or character. This was present as well on the oldest available 2013 CT scan with a similar size and appearance suggesting this represents residual mesenteric adenopathy compared to the 2013 study. No new or increasing disease identified. Thank you for referring your patient to us, Cody French MD [id number] (Electronically Signed - 10/30/2017 12:42) Copy: MITCHELL MAYS MD [facility] [address] [place] [address] [facility] [address] [place] [address] BESS SHARP MD [facility] [address] [facility] [address] [place] [address] Procedure Note Cody French MD - 11/15/2019 Examination: MR ABDOMEN WITH AND WITHOUT CONTRAST, MR PELVIS WITH ANDWITHOUT CONTRAST Indication: Benign Carcinoid Tumor Of The Ileum Comparison: Examination is compared multiple prior studies includingthe oldest available 05/30/2013 CT scan and the most recent roqlujitrj94/18/2017 MRI Technique: Multiple routine MRI sequences through the abdomen and thenpelvis were obtained on a high-field 1.5 Geeta MRI. Pre and postcontrast imageswere evaluated. 6 mL of Gadavist intravenous contrast was utilized without incident. Findings: There are 2 relatively homogeneous well-demarcated lobular mass lesionsseen within the central mesentery to the right of midline. The larger lesion measures 2.2 x 1.6 cm on the axial images with a superior to inferiorlength of 2.4 cm. There is a slightly more elongated nodule superomedial tothis. The smaller nodule measures 0.8 x 0.9 cm in short axis images for lengthof 2.1 cm. The appearance is similar to the prior study and these have not significantly changed in size or character from the most [id number]/20/2017 study or oldest available 05/30/2013 CT scan study. Compared to theoldest available 2014 study these mesenteric masses may represent residual mesenteric adenopathy. The lung bases are unremarkable. Liver is homogeneous in signal with nofocal hepatic lesion nor biliary ductal dilatation seen. Gallbladdersurgically absent. No focal abnormalities within the visualized adrenals, pancreas,or spleen. Tiny T2 bright nonenhancing cortical cysts are incidentallynoted within the kidneys. No new or bulky retroperitoneal adenopathy. Uterus is anteroverted and unremarkable. There is a thin-appearingjunctional zone and endometrial cavity. No bulky adnexal mass lesion seen. Bladderis decompressed and unremarkable. Patient is status post right hemicolectomy.No obstructive changes are seen within the remaining colon and small bowel.No suspicious bony abnormality. Impression: Overall no significant interval change in the smallmesenteric nodules in the proximal mesentery to the right of midline. When comparedto prior most recent study this is not changed in size or character. Thiswas present as well on the oldest available 2014 CT scan with a similar sizeand appearance suggesting this represents residual mesenteric adenopathycompared to the 2014 study. No new or increasing disease identified. Thank you for referring your patient to us, Cody French MD [id number] (Electronically Signed - 10/30/2017 12:42) Copy: MITCHELL MAYS MD [facility] [address] [place] [id number] BESS SHARP MD [address] [address] Ricci Carter MD IMG LEGACY PROCEDURE S documented in this encounter Visit Diagnoses Not on filedocumented in this encounter Care Teams Net Programmer Relationship Specialty Start Date End Date Mitchell Mays MD [address] [place] [address] PCP - General Internal Medicine 02/16/16 04/30/19 Consuelo Hobbs PA-C [address] [place] [address] PCP - General 05/01/19 Bess Sharp MD [address] [address] Gastroenterology 10/02/19 documented as of this encounter
--- OUTSIDE RECORDS SUMMARY | 2023-10-29 17:52 | XMS_ITS | Encounter Summary ---
Author Organization [facility] Address [address] [place] [address] Care Team Providers Care Automatic Brine Mixer Operator Name Role Phone Latoya Alcaraz MD Primary Care Provider [phone] Consuelo Hobbs PA-C Primary Care Provider Madi Sharp MD Unavailable [phone] Reason for Visit * Reason Comments Medication Refill Encounter Details Date Type Department Care Team (Late st Contact Info) Description 12/06/2016 Refill [facility] [place] [address] Corinna Estevez, LIAISON ENGINEER [address] [address] Migraine with status migrainosus, not intractable, unspecified [...] Description 11/13/2023 7:45 AM EDT Office Visit [facility] Medical Oncology at [address] [phone] Ricci Carter MD [address] [place] [address] 11/13/2023 8:30 AM EDT Infusion [facility] Cancer [place] at [facility] Outpatient Infusion Center [address] [phone] Ricci Carter MD [address] [place] [phone] Keiko Hallman MD 80 [facility] [place] [address] 11/20/2023 11:00 AM EDT Appointment [facility] Radiology [facility] [address] [place] [address] [phone] Ricci Carter MD [address] [place] [phone] 11/20/2023 11:30 AM EDT Appointment [facility] Radiology [place] [facility] [address] [place] [address] [phone] Ricci Carter MD [address] [place] [phone] 03/05/2024 11:00 AM EST Consult [facility] Cardiology [address] [place] [address] [phone] Ricci Carter MD [address] [place], [place] [phone] Jamil Ralph MD [address] [place] [phone] 05/30/2024 9:00 AM EST Office Visit [facility] Department of Internal Medicine [facility] 1210 [facility] [address] [place] [address] Consuelo Hobbs PA-C 1210 [facility] 109 [place] [address] documented as of this encounter Visit Diagnoses Diagnosis Migraine with status migrainosus, not intractable, unspecified migraine type documented in this encounter Care Teams Automatic Brine Mixer Operator Relationship Specialty Start Date End Date Latoya Alcaraz MD 85 [facility] 900 [place] [address] PCP - General Internal Medicine 02/16/16 04/30/19 Consuelo Hobbs PA-C [address] [place] [address] PCP - General 05/01/19 Madi Sharp MD 85 [facility] [address] [place] [phone] Gastroenterology 10/02/19 documented as of this encounter
--- OUTSIDE RECORDS SUMMARY | 2023-10-29 17:52 | XMS_ITS | Encounter Summary ---
Author Organization [facility] Address [address] [place] [address] Care Team Providers Care Furniture Removalist Name Role Phone Latoya Alcaraz MD Primary Care Provider [phone] Consuelo Hobbs PA-C Primary Care Provider Madi Sharp MD Unavailable [phone] Reason for Visit * Reason Comments Medication Refill Encounter Details Date Type Department Care Team (Late Contact Info) Description 06/27/2017 Refill [facility] [place] [address] Shelia Torres MD [address] [place] [address] Migraine with status migrainosus, not intractable, unspecified [...] Office Visit [facility] Medical Oncology at [address] [phone] Ricci Carter MD [address] [place] [address] 11/13/2023 8:30 AM EDT Infusion [facility] Cancer [place] at Outpatient Infusion Center [address] [phone] Ricci Carter MD [address] [place], [place] [phone] Keiko Hallman MD 80 [facility] [place] [address] 11/20/2023 11:00 AM EDT Appointment [facility] Radiology [facility] [address] [place] [address] [phone] Ricci Carter MD [address] [place] [phone] 11/20/2023 11:30 AM EDT Appointment [facility] Radiology [facility] [address] [place] [phone] Ricci Carter MD [address] [place] [phone] 03/05/2024 11:00 AM EST Consult [facility] Cardiology [address] [place] [address] [phone] Ricci Carter MD [address] [place], [place] [phone] Jamil Ralph MD [address] [place] [phone] 05/30/2024 9:00 AM EST Office Visit [facility] Department of Internal Medicine [facility] 1210 [facility] [address] [place] [address] Consuelo Hobbs PA-C [address] [address] documented as of this encounter Visit Diagnoses Diagnosis Migraine with status migrainosus, not intractable, unspecified migraine type documented in this encounter Care Teams Furniture Removalist Relationship Specialty Start Date End Date Latoya Alcaraz MD 85 [facility] 900 [place] [address] PCP - General Internal Medicine 02/16/16 04/30/19 Consuelo Hobbs PA-C [address] [place] [address] PCP - General 05/01/19 Madi Sharp MD 85 [facility] 1000 [place] [phone] Gastroenterology 10/02/19 documented as of this encounter
--- OUTSIDE RECORDS SUMMARY | 2023-10-29 17:52 | XMS_ITS | Encounter Summary ---
Author Organization [facility] Address [address] [place] [address] Care Team Providers Care Precision Structural Metal Fitter Name Role Phone Pcp, No Primary Care Provider Latoya Nolasco MD Primary Care Provider [phone] Encounter Details Date Type Department Care Team (Late Contact Info) Description 02/15/2016 Orders Only HH AMB INBD INTERFACE [address] [place] [address] Ricci Carter MD [address] [place] [address] Social History Tobacco Use Types Packs/Day Years [...] Upcoming Encounters Date Type Department Care Team ([facility] Contact Info) Description 11/13/2023 7:45 AM EDT Office Visit [facility] [place] Medical Oncology at [address] [phone] Ricci Carter MD [address] [place], [place] [id number] 11/13/2023 8:30 AM EDT Infusion [facility] [place] [facility] [address] [phone] Ricci Carter MD [address] [place], [place] [phone] Keiko Hallman MD 80 [facility] [place] [address] 11/20/2023 11:00 AM EDT Appointment [facility] Radiology [facility] [address] [place] [phone] Ricci Carter MD [address] [place] [address] 11/20/2023 11:30 AM EDT Appointment [facility] Radiology [facility] [address] [place] [phone] Ricci Carter MD [address] [place], [place] [phone] 03/05/2024 11:00 AM EST Consult [facility] Cardiology [address] [place] [phone] Ricci Carter MD [address] [place], [place] [phone] Jamil Ralph MD [address] [facility] [address] [place] [address] 05/30/2024 9:00 AM EST Office Visit [facility] Department of Internal Medicine [facility] [address] [facility] [address] [place] [address] Consuelo Hobbs PA-C [address] [facility] [address] [place] [address] documented as of this encounter Procedures Procedure Name Priority Date/Time Associated Diagnosis Comments MRI PELVIS W W/O CONTRAST Routine 02/16/2016 4:50 PM EST documented in this encounter Results * MRI Pelvis w w/o contrast (02/16/2016 4:50 PM EST) Anatomical Region Laterality Modality Pelvis Magnetic Resonan ce 02/15/2016 11:0 0 AM EST 02/15/2016 11:00 AM EST Narrative 02/16/2016 4:50 PM EST EXAMINATION: MR ABDOMEN WITHOUT AND WITH CONTRAST MR PELVIS WITHOUT AND WITH CONTRAST CLINICAL INFORMATION: Carcinoid tumor and lobar abdomen. Right-sided hemicolectomy with lymph node removal. COMPARISON: Prior abdominal and pelvic MRI 07/27/2015. ??Additional abdominal/pelvic imaging. TECHNIQUE: Multiple MR sequences of the abdomen and pelvis were obtained without and with contrast. 7 mL of Gadavist were injected without adverse reaction reported. FINDINGS: On axial image 125/172 (series 1601), there is an enhancing right parasagittal mesenteric mass measuring 2.4 x 1.8 cm transaxially (previously 2.5 x 1.8 cm). No interval change in morphology. More superiorly within the abdomen on axial image 108/172, there is a 0.7 cm mesenteric lymph node which is unchanged compared to prior exam. No new mesenteric mass is demonstrated. No new adenopathy. Visualized portions of the lung bases are clear. No suspicious hepatic lesion. No biliary ductal dilatation. Gallstones and layering sludge within the gallbladder lumen. No suspicious pancreatic, splenic, or renal lesion. There is an unchanged 1.1 cm right renal cyst. Bowel gas pattern is nonobstructive. No focal bowel abnormality is demonstrated. Visualized portions of the pelvis demonstrate no free pelvic fluid. No pelvic adenopathy. The bladder is unremarkable. Tampon noted. Slightly decreased conspicuity of the T2 hypointense lesion along the inferior aspect of the lower uterine segment, which again is favored to represent a fibroid. No suspicious adnexal mass. No suspicious osseous signal is demonstrated. IMPRESSION: 1. No significant interval change compared to prior exam. Persistent mesenteric mass and adjacent subcentimeter mesenteric lymph node. 2. No new adenopathy. 3. No new visceral lesion within the abdomen or pelvis. Thank you for referring your patient to us, Salvatore Barrios MD (Electronically Signed - 02/16/2016 16:50) Copy: CARLOS PADRON MD [address] [place] [address] KIAN DONAHUE MD [facility] [address] [place] [address] Procedure Note Salvatore Barrios MD - 02/16/2016 EXAMINATION: MR ABDOMEN WITHOUT AND WITH CONTRAST MR PELVIS WITHOUT AND WITH CONTRAST CLINICAL INFORMATION: Carcinoid tumor and lobar abdomen. Right-sided hemicolectomy with lymphnode removal. COMPARISON: Prior abdominal and pelvic MRI 07/27/2015. Additional abdominal/pelvic imaging. TECHNIQUE: Multiple MR sequences of the abdomen and pelvis were obtained withoutand with contrast. 7 mL of Gadavist were injected without adverse reaction reported. FINDINGS: On axial image 125/172 (series 1601), there is an enhancing right parasagittal mesenteric mass measuring 2.4 x 1.8 cm transaxially(previously 2.5 x 1.8 cm). No interval change in morphology. More superiorly withinthe abdomen on axial image 108/172, there is a 0.7 cm mesenteric lymph nodewhich is unchanged compared to prior exam. No new mesenteric mass isdemonstrated. No new adenopathy. Visualized portions of the lung bases are clear. No suspicious hepatic lesion. No biliary ductal dilatation. Gallstones and layering sludgewithin the gallbladder lumen. No suspicious pancreatic, splenic, or renallesion. There is an unchanged 1.1 cm right renal cyst. Bowel gas pattern is nonobstructive. No focal bowel abnormality is demonstrated. Visualized portions of the pelvis demonstrate no free pelvic fluid. Nopelvic adenopathy. The bladder is unremarkable. Tampon noted. Slightlydecreased conspicuity of the T2 hypointense lesion along the inferior aspect ofthe lower uterine segment, which again is favored to represent a fibroid. No suspicious adnexal mass. No suspicious osseous signal is demonstrated. IMPRESSION: 1. No significant interval change compared to prior exam. Persistent mesenteric mass and adjacent subcentimeter mesenteric lymph node. 2. No new adenopathy. 3. No new visceral lesion within the abdomen or pelvis. Thank you for referring your patient to us, Salvatore Barrios MD (Electronically Signed - 02/16/2016 16:50) Copy: CARLOS PADRON MD [address] [place] [address] KIAN DONAHUE MD [facility] [address] [place] [address] Ricci Carter MD IMG MRI ORDERABLES documented in this encounter Visit Diagnoses Not on filedocumented in this encounter Care Teams Precision Structural Metal Fitter Relationship Specialty Start Date End Date Pcp, No PCP - General General Medicine 08/14/15 02/15/16 Latoya Alcaraz MD [address] [place] [phone] PCP - General Internal Medicine 02/16/16 04/30/19 documented as of this encounter
--- OUTSIDE RECORDS SUMMARY | 2023-10-29 17:52 | XMS_ITS | Encounter Summary ---
Author Organization [facility] Address [address] [place] [address] Care Team Providers Care Proofreader Name Role Phone Latoya Alcaraz MD Primary Care Provider [phone] Consuelo Hobbs PA-C Primary Care Provider Madi Sharp MD Unavailable [phone] Encounter Details Date Type Department Care Team (Late st Contact Info) Description 11/28/2018 Conversion Encounter [facility] [address] [facility] [address] [place] [address] Ricci Carter MD [address] [place], [place] [phone] Social History Tobacco Use Types Packs/Day Years [...] Visit [facility] Medical Oncology at [address] [phone] Ricci Carter MD [address] [place], [place] [phone] 11/13/2023 8:30 AM EDT Infusion [facility] [place] at [facility] [address] [phone] Ricci Carter MD [address] [place], [place] [phone] Keiko Hallman MD 80 [facility] [place] [address] 11/20/2023 11:00 AM EDT Appointment [facility] Radiology [facility] [address] [place] [phone] Ricci Carter MD [address] [place], [place] [phone] 11/20/2023 11:30 AM EDT Appointment [facility] Radiology [facility] [address] [place] [phone] Ricci Carter MD [address] [place], [place] [phone] 03/05/2024 11:00 AM EST Consult [facility] Cardiology [address] [place] [phone] Ricci Carter MD [address] [place] [address] Jamil Ralph MD [address] [place] [address] 05/30/2024 9:00 AM EST Office Visit [facility] Department of Internal Medicine [facility] [address] [facility] [address] [place] [address] Consuelo Hobbs PA-C [address] [facility] [address] [place] [address] documented as of this encounter Procedures Procedure Name Priority Date/Time Associated Diagnosis Comments MR PELVIS WITH AND WITHOUT CONTRAST Routine 11/28/2018 10:15 AM EDT MR ABDOMEN WITH AND WITHOUT CONTRAST Routine 11/28/2018 9:45 AM EDT documented in this encounter Results * MR PELVIS WITH AND WITHOUT CONTRAST (11/28/2018 10:15 AM EDT) Anatomical Region Laterality Modality Other 11/28/2018 10:1 5 AM EDT 11/28/2018 10:15 AM EDT Narrative 11/30/2018 7:45 AM EDT EXAMINATION: MRI ABDOMEN WITHOUT AND WITH CONTRAST MRI PELVIS WITHOUT CONTRAST CLINICAL INFORMATION: Restaging carcinoid. COMPARISON: Prior MRIs, most recent 04/30/2017. TECHNIQUE: MR sequences of the abdomen and pelvis were obtained without and with intravenous contrast, utilizing 6 mL Gadavist. No adverse reaction reported. FINDINGS: Visualized portions of the lung bases are unremarkable. No pleural effusion. No ascites. No new suspicious hepatic lesion. Borderline common bile duct prominence can be a normal finding status post cholecystectomy. No choledocholithiasis. Although a dedicated MR angiography is not performed, the hepatic and portal veins are patent. No splenomegaly. No suspicious pancreatic, adrenal, or renal lesion. Redemonstration of a 1.5 cm mid right renal cyst without suspicious enhancement. Bowel gas pattern is nonobstructive. No evidence of acute bowel inflammation or discrete bowel mass lesion. Postsurgical changes status post partial colectomy. Redemonstration of 2 mesenteric mass lesions. On postcontrast axial images 150/172, there is a lobulated enhancing 2.5 x 2.1 cm mass which previously measured 2.4 x 2.1 cm. This has not changed in morphology compared to prior exam. On axial images 135/172, there is a 0.9 x 0.6 cm mesenteric nodule which is unchanged in size and morphology compared to prior exam when adjusting for technical factors. No new suspicious mass lesion in the mesentery. No new retroperitoneal or pelvic adenopathy. No free pelvic fluid. The bladder is decompressed. No new suspicious uterine or adnexal lesion. Small nabothian cyst. Small left ovarian cyst. No new suspicious osseous signal. IMPRESSION: No significant interval change compared to prior abdominal and pelvic imaging. Redemonstration of 2 mesenteric masses which are unchanged in size and morphology compared to multiple prior examinations. These may most likely represent chronic lymphadenopathy. No new mesenteric mass lesion, visceral lesion, or other adenopathy. Thank you for referring your patient to us, Salvatore Barrios MD [phone] (Electronically Signed - 11/30/2018 07:45) Copy: PATIENT , ?? Procedure Note Salvatore Barrios MD - 10/31/2019 EXAMINATION: MRI ABDOMEN WITHOUT AND WITH CONTRAST MRI PELVIS WITHOUT CONTRAST CLINICAL INFORMATION: Restaging carcinoid. COMPARISON: Prior MRIs, most recent 04/30/2017. TECHNIQUE: MR sequences of the abdomen and pelvis were obtained without and with intravenous contrast, utilizing 6 mL Gadavist. No adverse reactionreported. FINDINGS: Visualized portions of the lung bases are unremarkable. No pleuraleffusion. No ascites. No new suspicious hepatic lesion. Borderline common bileduct prominence can be a normal finding status post cholecystectomy. No choledocholithiasis. Although a dedicated MR angiography is notperformed, the hepatic and portal veins are patent. No splenomegaly. No suspicious pancreatic, adrenal, or renal lesion. Redemonstration of a 1.5 cm midright renal cyst without suspicious enhancement. Bowel gas pattern is nonobstructive. No evidence of acute bowelinflammation or discrete bowel mass lesion. Postsurgical changes status post partial colectomy. Redemonstration of 2 mesenteric mass lesions. On postcontrast axialimages 150/172, there is a lobulated enhancing 2.5 x 2.1 cm mass whichpreviously measured 2.4 x 2.1 cm. This has not changed in morphology compared toprior exam. On axial images 135/172, there is a 0.9 x 0.6 cm mesenteric nodule which is unchanged in size and morphology compared to prior exam when adjusting for technical factors. No new suspicious mass lesion in the mesentery. No new retroperitoneal or pelvic adenopathy. No free pelvic fluid. The bladder is decompressed. No new suspiciousuterine or adnexal lesion. Small nabothian cyst. Small left ovarian cyst. No new suspicious osseous signal. IMPRESSION: No significant interval change compared to prior abdominal and pelvic imaging. Redemonstration of 2 mesenteric masses which are unchanged insize and morphology compared to multiple prior examinations. These may mostlikely represent chronic lymphadenopathy. No new mesenteric mass lesion,visceral lesion, or other adenopathy. Thank you for referring your patient to us, Salvatore Barrios MD [phone] (Electronically Signed - 11/30/2018 07:45) Copy: PATIENT , Ricci Carter MD IMG LEGACY PROCEDURE S * MR ABDOMEN WITH AND WITHOUT CONTRAST (11/28/2018 9:45 AM EDT) Anatomical Region Laterality Modality Other 11/28/2018 9:45 AM EDT 11/28/2018 9:45 AM EDT Narrative 11/30/2018 7:45 AM EDT EXAMINATION: MRI ABDOMEN WITHOUT AND WITH CONTRAST MRI PELVIS WITHOUT CONTRAST CLINICAL INFORMATION: Restaging carcinoid. COMPARISON: Prior MRIs, most recent 04/30/2017. TECHNIQUE: MR sequences of the abdomen and pelvis were obtained without and with intravenous contrast, utilizing 6 mL Gadavist. No adverse reaction reported. FINDINGS: Visualized portions of the lung bases are unremarkable. No pleural effusion. No ascites. No new suspicious hepatic lesion. Borderline common bile duct prominence can be a normal finding status post cholecystectomy. No choledocholithiasis. Although a dedicated MR angiography is not performed, the hepatic and portal veins are patent. No splenomegaly. No suspicious pancreatic, adrenal, or renal lesion. Redemonstration of a 1.5 cm mid right renal cyst without suspicious enhancement. Bowel gas pattern is nonobstructive. No evidence of acute bowel inflammation or discrete bowel mass lesion. Postsurgical changes status post partial colectomy. Redemonstration of 2 mesenteric mass lesions. On postcontrast axial images 150/172, there is a lobulated enhancing 2.5 x 2.1 cm mass which previously measured 2.4 x 2.1 cm. This has not changed in morphology compared to prior exam. On axial images 135/172, there is a 0.9 x 0.6 cm mesenteric nodule which is unchanged in size and morphology compared to prior exam when adjusting for technical factors. No new suspicious mass lesion in the mesentery. No new retroperitoneal or pelvic adenopathy. No free pelvic fluid. The bladder is decompressed. No new suspicious uterine or adnexal lesion. Small nabothian cyst. Small left ovarian cyst. No new suspicious osseous signal. IMPRESSION: No significant interval change compared to prior abdominal and pelvic imaging. Redemonstration of 2 mesenteric masses which are unchanged in size and morphology compared to multiple prior examinations. These may most likely represent chronic lymphadenopathy. No new mesenteric mass lesion, visceral lesion, or other adenopathy. Thank you for referring your patient to us, Salvatore Barrios MD [id number] (Electronically Signed - 11/30/2018 07:45) Copy: PATIENT , ?? Procedure Note Salvatore Barrios MD - 10/31/2019 EXAMINATION: MRI ABDOMEN WITHOUT AND WITH CONTRAST MRI PELVIS WITHOUT CONTRAST CLINICAL INFORMATION: Restaging carcinoid. COMPARISON: Prior MRIs, most recent 04/30/2017. TECHNIQUE: MR sequences of the abdomen and pelvis were obtained without and with intravenous contrast, utilizing 6 mL Gadavist. No adverse reactionreported. FINDINGS: Visualized portions of the lung bases are unremarkable. No pleuraleffusion. No ascites. No new suspicious hepatic lesion. Borderline common bileduct prominence can be a normal finding status post cholecystectomy. No choledocholithiasis. Although a dedicated MR angiography is notperformed, the hepatic and portal veins are patent. No splenomegaly. No suspicious pancreatic, adrenal, or renal lesion. Redemonstration of a 1.5 cm midright renal cyst without suspicious enhancement. Bowel gas pattern is nonobstructive. No evidence of acute bowelinflammation or discrete bowel mass lesion. Postsurgical changes status post partial colectomy. Redemonstration of 2 mesenteric mass lesions. On postcontrast axialimages 150/172, there is a lobulated enhancing 2.5 x 2.1 cm mass whichpreviously measured 2.4 x 2.1 cm. This has not changed in morphology compared toprior exam. On axial images 135/172, there is a 0.9 x 0.6 cm mesenteric nodule which is unchanged in size and morphology compared to prior exam when adjusting for technical factors. No new suspicious mass lesion in the mesentery. No new retroperitoneal or pelvic adenopathy. No free pelvic fluid. The bladder is decompressed. No new suspiciousuterine or adnexal lesion. Small nabothian cyst. Small left ovarian cyst. No new suspicious osseous signal. IMPRESSION: No significant interval change compared to prior abdominal and pelvic imaging. Redemonstration of 2 mesenteric masses which are unchanged insize and morphology compared to multiple prior examinations. These may mostlikely represent chronic lymphadenopathy. No new mesenteric mass lesion,visceral lesion, or other adenopathy. Thank you for referring your patient to us, Salvatore Barrios MD [phone] (Electronically Signed - 11/30/2018 07:45) Copy: PATIENT , Ricci Carter MD IMG LEGACY PROCEDURE S documented in this encounter Visit Diagnoses Not on filedocumented in this encounter Care Teams Proofreader Relationship Specialty Start Date End Date Latoya Alcaraz MD [address] [address] PCP - General Internal Medicine 02/16/16 04/30/19 Consuelo Hobbs PA-C [address] [place] [id number] PCP - General 05/01/19 Madi Sharp MD [address] [address] Gastroenterology 10/02/19 documented as of this encounter
--- OUTSIDE RECORDS SUMMARY | 2023-10-29 17:52 | XMS_ITS | Encounter Summary ---
Author Organization [facility] Address [address] [place] [address] Care Team Providers Care Hook And Eye Machine Operator Name Role Phone Latoya Alcaraz MD Primary Care Provider [phone] Consuelo Hobbs PA-C Primary Care Provider Madi Sharp MD Unavailable [phone] Reason for Visit * Reason Comments Medication Refill Encounter Details Date Type Department Care Team (Late st Contact Info) Description 03/30/2017 Refill [facility] [place] [address] Corinna Estevez, SYSTEMS INTEGRATION MANAGER [address] [address] Migraine with status migrainosus, not intractable, unspecified [...] Visit [facility] Medical Oncology at [address] [phone] Ricci Carter MD [address] [place] [address] 11/13/2023 8:30 AM EDT Infusion [facility] Cancer [place] at [facility] [address] [phone] Ricci Carter MD [address] [place], [place] [phone] Keiko Hallman MD 80 [facility] [place] [address] 11/20/2023 11:00 AM EDT Appointment [facility] Radiology [facility] M[facility] [address] [place] [phone] Ricci Carter MD [address] [place] [phone] 11/20/2023 11:30 AM EDT Appointment [facility] Radiology [place] [facility] [address] [place] [address] [phone] Ricci Carter MD [address] [place] [phone] 03/05/2024 11:00 AM EST Consult [facility] Cardiology [address] [place] [phone] Ricci Carter MD [address] [place] [phone] Jamil Ralph MD [address] [place] [phone] 05/30/2024 9:00 AM EST Office Visit [facility] Department of Internal Medicine [facility] 1210 [facility] [address] [place] [address] Consuelo Hobbs PA-C 1210 [facility] 109 [place] [address] documented as of this encounter Visit Diagnoses Diagnosis Migraine with status migrainosus, not intractable, unspecified migraine type documented in this encounter Care Teams Hook And Eye Machine Operator Relationship Specialty Start Date End Date Latoya Alcaraz MD 85 [facility] [address] [place] [address] PCP - General Internal Medicine 02/16/16 04/30/19 Consuelo Hobbs PA-C [address] [place] [address] PCP - General 05/01/19 Madi Sharp MD 85 [facility] [address] [place] [phone] Gastroenterology 10/02/19 documented as of this encounter
--- OUTSIDE RECORDS SUMMARY | 2023-10-29 17:52 | XMS_ITS | Encounter Summary ---
Author Organization [facility] Address [address] [place] [address] Care Team Providers Care Software Application Tester Name Role Phone Pcp, No Primary Care Provider UnavailLatoya Vu MD Primary Care Provider [phone] Consuelo Hobbs PA-C Primary Care Provider Madi Sharp MD Unavailable [phone] Reason for Visit * Reason Comments Medication Refill Encounter Details Date Type Department Care Team (Late st Contact Info) Description 10/21/2015 Refill [facility] [place] [address] Shelia Torres MD [address] [place] [address] Migraine with status migrainosus, not intractable, unspecified [...] Visit [facility] Medical Oncology at [address] [phone] Ricci Carter MD [address] [place], [place] [id number] 11/13/2023 8:30 AM EDT Infusion [facility] [place] [facility] [address] [phone] Ricci Carter MD [address] [place], [place] [phone] Keiko Hallman MD [address] [facility] [place] [address] 11/20/2023 11:00 AM EDT Appointment [facility] Radiology [facility] [address] [place] [address] [phone] Ricci Carter MD [address] [place], [place] [id number] 11/20/2023 11:30 AM EDT Appointment [facility] Radiology [facility] [address] [place] [phone] Ricci Carter MD [address] [place], [place] [id number] 03/05/2024 11:00 AM EST Consult [facility] Cardiology [address] [place] [phone] Ricci Carter MD [address] [place], [place] [id number] Jamil Ralph MD [address] [place] [id number] 05/30/2024 9:00 AM EST Office Visit [facility] Department of Internal Medicine [facility] [address] [phone] Consuelo Hobbs PA-C [address] [id number] documented as of this encounter Visit Diagnoses Diagnosis Migraine with status migrainosus, not intractable, unspecified migraine type- Primary documented in this encounter Care Teams Software Application Tester Relationship Specialty Start Date End Date Pcp, No PCP - General General Medicine 08/14/15 02/15/16 Latoya Alcaraz MD [address] [place] [address] [address] [place] [address] PCP - General Internal Medicine 02/16/16 04/30/19 Consuelo Hobbs PA-C [address] [place] [phone] PCP - General 05/01/19 Madi Sharp MD 85 [facility] [address] [place] [address] Gastroenterology 10/02/19 documented as of this encounter
--- OUTSIDE RECORDS SUMMARY | 2023-10-29 17:52 | XMS_ITS | Encounter Summary ---
Author Organization [facility] Address [address] [place] [address] Care Team Providers Care Brewer Helper Name Role Phone Consuelo Hobbs PA-C Primary Care Provider Encounter Details Date Type Department Care Team (Late st Contact Info) Description 09/25/2013 7:33 AM EDT - 09/25/2013 11:59 PM EDT Hospital Encounter [facility] Radiology [address] [place] [phone] Kehinde Landrum MD [address] [place] [id number] Social History Tobacco Use Types Packs/Day Years [...] Office Visit [facility] at [address] [phone] Ricci Carter MD [address] [place] [address] 11/13/2023 8:30 AM EDT Infusion [facility] [address] [phone] Ricci Carter MD [address] [place] [address] Keiko Hallman MD [address] [facility] [place] [address] 11/20/2023 11:00 AM EDT Appointment [facility] [address] [place] [phone] Ricci Caretr MD [address] [place], [place] [phone] 11/20/2023 11:30 AM EDT Appointment [facility] [address] [place] [phone] Ricci Carter MD [address] [place] [address] 03/05/2024 11:00 AM EST Consult [facility] Cardiology [address] [place] [phone] Ricci Carter MD [address] [place], [place] [phone] Jamil Ralph MD [address] [facility] [address] [place] [address] 05/30/2024 9:00 AM EST Office Visit [facility] Department of Internal Medicine [address] [place] [address] Consuelo Hobbs PA-C [address] [facility] [address] [place] [address] documented as of this encounter Procedures Procedure Name Priority Date/Time Associated Diagnosis Comments DELAYED IMAGING SERIES 2 -H Routine 09/27/2013 10:40 AM EDT DELAYED IMAGING SERIES 1 -H Routine 09/26/2013 7:45 AM EDT NM SPECT TUMOR -H Routine 09/25/2013 12: 20 PM EDT NM WHOLE BODY OCTREOSCAN IMG -H Routine 09/25/2013 7:45 AM EDT documented in this encounter Results * DELAYED IMAGING SERIES 2 -H (09/27/2013 10:40 AM EDT) Anatomical Region Laterality Modality Other 09/27/2013 10:4 0 AM EDT Narrative 08/22/2013 8:46 AM EDT NM Delayed Image Se Verified Verified Verified Verified Verified EXAM: In-111 Octreoscan Study 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 TECHNIQUE: ?? Following the intravenous injection of ??5.1 ??mCi In-111 Octreoscan, whole body planar images in the anterior and posterior projections were obtained at 4 hours post-injection. SPECT images of the abdomen were then obtained. ??Repeat the images of the total body and abdomen were obtained at 24 and 28 hours post-injection. SPECT images of the chest were obtained at 24 hours post-injection. FINDINGS: The planar images obtained at 4, 24, and 48 hours post injection demonstrate physiological uptake in the liver, spleen, kidneys. Urinary bladder activity is visualized on the four-hour images but becomes progressively fainter between the 24 and 48 hours images. Some faint bowel activity is visualized and this is less intense at 24 hours and shows very significant clearing on the 48 -hour images. Focus of abnormal activity is demonstrated in the right upper quadrant in the expected region of the second portion of the duodenum, although this activity possible to be visualized candace periportal lymph node. Additional 4 to 5 foci of abnormal activity are visualized within the pelvis, within the left internal iliac lymph nodes. No other foci of abnormal activity are noted on any of the images. The SPECT images also demonstrate physiological uptake in the liver, spleen and kidneys, with no significant bowel activity visualized throughout. Right upper quadrant focus of activity likely within the duodenum or in the right additionally a lymph node. Additional 4 to 5 foci of activity are demonstrated within the pelvis on SPECT images. IMPRESSION: 1. Right upper quadrant focus of abnormal activity likely represents residual disease within the duodenum versus metastatic involvement of an adjacent retroperitoneal lymph node. 2. 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 Beryl Dutta MD Resident I personally reviewed the images and, if necessary, I edited the report. ??I agree with the report as now presented. 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 Statuspost resection with positive margins. TECHNIQUE: Following the intravenous injection of 5.1 mCi In-111 Octreoscan, wholebody planar images in the anterior and posterior projections were obtainedat 4 hours post-injection. SPECT images of the abdomen were then obtained.Repeat the images of the total body and abdomen were obtained at 24 and 28 hours post-injection.SPECT images of the chest were obtained at 24 hours post-injection. FINDINGS: The planar images obtained at 4, 24, and 48 hours post injectiondemonstrate physiological uptake in the liver, spleen, kidneys. Urinarybladder activity is visualized on the four-hour images but becomesprogressively fainter between the 24 and 48 hours images. Some faint bowel activity is visualized and this is less intenseat 24 hours and shows very significant clearing on the 48 -hour images. Focus of abnormal activity is demonstrated in the right upper quadrant inthe expected region of the second portion of the duodenum, although thisactivity possible to be visualized candace periportal lymph node. Additional 4 to 5 foci of abnormal activity are visualized within thepelvis, within the left internal iliac lymph nodes. No other foci of abnormal activity are noted on any of the images. The SPECT images also demonstrate physiological uptake in the liver,spleen and kidneys, with no significant bowel activity visualizedthroughout. Right upper quadrant focus of activity likely within theduodenum or in the right additionally a lymph node. Additional 4 to 5 foci of activity are demonstrated within thepelvis on SPECT images. IMPRESSION: 1. Right upper quadrant focus of abnormal activity likely representsresidual disease within the duodenum versus metastatic involvement of anadjacent retroperitoneal lymph node. 2. Additional foci of abnormal activity within the lower pelvis likelyrepresenting metastatic involvement of the left internal iliac lymphnodes. Beryl Dutta MD Resident I personally reviewed the images and, if necessary, I edited the report.I agree with the report as now presented. 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 TECHNIQUE: ?? Following the intravenous injection of ??5.1 ??mCi In-111 Octreoscan, whole body planar images in the anterior and posterior projections were obtained at 4 hours post-injection. SPECT images of the abdomen were then obtained. ??Repeat the images of the total body and abdomen were obtained at 24 and 28 hours post-injection. SPECT images of the chest were obtained at 24 hours post-injection. FINDINGS: The planar images obtained at 4, 24, and 48 hours post injection demonstrate physiological uptake in the liver, spleen, kidneys. Urinary bladder activity is visualized on the four-hour images but becomes progressively fainter between the 24 and 48 hours images. Some faint bowel activity is visualized and this is less intense at 24 hours and shows very significant clearing on the 48 -hour images. Focus of abnormal activity is demonstrated in the right upper quadrant in the expected region of the second portion of the duodenum, although this activity possible to be visualized candace periportal lymph node. Additional 4 to 5 foci of abnormal activity are visualized within the pelvis, within the left internal iliac lymph nodes. No other foci of abnormal activity are noted on any of the images. The SPECT images also demonstrate physiological uptake in the liver, spleen and kidneys, with no significant bowel activity visualized throughout. Right upper quadrant focus of activity likely within the duodenum or in the right additionally a lymph node. Additional 4 to 5 foci of activity are demonstrated within the pelvis on SPECT images. IMPRESSION: 1. Right upper quadrant focus of abnormal activity likely represents residual disease within the duodenum versus metastatic involvement of an adjacent retroperitoneal lymph node. 2. 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 Beryl Dutta MD Resident I personally reviewed the images and, if necessary, I edited the report. ??I agree with the report as now presented. 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 Statuspost resection with positive margins. TECHNIQUE: Following the intravenous injection of 5.1 mCi In-111 Octreoscan, wholebody planar images in the anterior and posterior projections were obtainedat 4 hours post-injection. SPECT images of the abdomen were then obtained.Repeat the images of the total body and abdomen were obtained at 24 and 28 hours post-injection.SPECT images of the chest were obtained at 24 hours post-injection. FINDINGS: The planar images obtained at 4, 24, and 48 hours post injectiondemonstrate physiological uptake in the liver, spleen, kidneys. Urinarybladder activity is visualized on the four-hour images but becomesprogressively fainter between the 24 and 48 hours images. Some faint bowel activity is visualized and this is less intenseat 24 hours and shows very significant clearing on the 48 -hour images. Focus of abnormal activity is demonstrated in the right upper quadrant inthe expected region of the second portion of the duodenum, although thisactivity possible to be visualized candace periportal lymph node. Additional 4 to 5 foci of abnormal activity are visualized within thepelvis, within the left internal iliac lymph nodes. No other foci of abnormal activity are noted on any of the images. The SPECT images also demonstrate physiological uptake in the liver,spleen and kidneys, with no significant bowel activity visualizedthroughout. Right upper quadrant focus of activity likely within theduodenum or in the right additionally a lymph node. Additional 4 to 5 foci of activity are demonstrated within thepelvis on SPECT images. IMPRESSION: 1. Right upper quadrant focus of abnormal activity likely representsresidual disease within the duodenum versus metastatic involvement of anadjacent retroperitoneal lymph node. 2. Additional foci of abnormal activity within the lower pelvis likelyrepresenting metastatic involvement of the left internal iliac lymphnodes. Beryl Dutta MD Resident I personally reviewed the images and, if necessary, I edited the report.I agree with the report as now presented. 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 TECHNIQUE: ?? Following the intravenous injection of ??5.1 ??mCi In-111 Octreoscan, whole body planar images in the anterior and posterior projections were obtained at 4 hours post-injection. SPECT images of the abdomen were then obtained. ??Repeat the images of the total body and abdomen were obtained at 24 and 28 hours post-injection. SPECT images of the chest were obtained at 24 hours post-injection. FINDINGS: The planar images obtained at 4, 24, and 48 hours post injection demonstrate physiologicaluptake in the liver, spleen, kidneys. Urinary bladder activity is visualized on the four-hour images but becomes progressively fainter between the 24 and 48 hours images. Some faint bowel activity is visualized and this is less intense at 24 hours and shows very significant clearing on the 48 -hour images. Focus of abnormal activity is demonstrated in the right upper quadrant in the expected region of the second portion of the duodenum, although this activity possible to be visualized in a periportal lymph node. Additional 4 to 5 foci of abnormal activity are visualized within the pelvis, within the left internal iliac lymph nodes. No other foci of abnormal activity are noted on any of the images. The SPECT images also demonstrate physiological uptake in the liver, spleen and kidneys, with no significant bowel activity visualized throughout. Right upper quadrant focus of activity likely within the duodenum or in the right additionally a lymph node. Additional 4 to 5 foci of activity are demonstrated within the pelvis on SPECT images. IMPRESSION: 1. Right upper quadrant focus of abnormal activity likely represents residual disease within the duodenum versus metastatic involvement of an adjacent retroperitoneal lymph node. 2. 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 Beryl Dutta MD Resident I personally reviewed the images and, if necessary, I edited the report. ??I agree with the report as now presented. 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 Statuspost resection with positive margins. TECHNIQUE: Following the intravenous injection of 5.1 mCi In-111 Octreoscan, wholebody planar images in the anterior and posterior projections were obtainedat 4 hours post-injection. SPECT images of the abdomen were then obtained.Repeat the images of the total body and abdomen were obtained at 24 and 28 hours post-injection.SPECT images of the chest were obtained at 24 hours post-injection. FINDINGS: The planar images obtained at 4, 24, and 48 hours post injectiondemonstrate physiologicaluptake in the liver, spleen, kidneys. Urinarybladder activity is visualized on the four-hour images but becomesprogressively fainter between the 24 and 48 hours images. Some faint bowel activity is visualized and this is less intenseat 24 hours and shows very significant clearing on the 48 -hour images. Focus of abnormal activity is demonstrated in the right upper quadrant inthe expected region of the second portion of the duodenum, although thisactivity possible to be visualized in a periportal lymph node. Additional 4 to 5 foci of abnormal activity are visualized within thepelvis, within the left internal iliac lymph nodes. No other foci of abnormal activity are noted on any of the images. The SPECT images also demonstrate physiological uptake in the liver,spleen and kidneys, with no significant bowel activity visualizedthroughout. Right upper quadrant focus of activity likely within theduodenum or in the right additionally a lymph node. Additional 4 to 5 foci of activity are demonstrated within thepelvis on SPECT images. IMPRESSION: 1. Right upper quadrant focus of abnormal activity likely representsresidual disease within the duodenum versus metastatic involvement of anadjacent retroperitoneal lymph node. 2. Additional foci of abnormal activity within the lower pelvis likelyrepresenting metastatic involvement of the left internal iliac lymphnodes. Beryl Dutta MD Resident I personally reviewed the images and, if necessary, I edited the report.I agree with the report as now presented. 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 TECHNIQUE: ?? Following the intravenous injection of ??5.1 ??mCi In-111 Octreoscan, whole body planar images in the anterior and posterior projections were obtained at 4 hours post-injection. SPECT images of the abdomen were then obtained. ??Repeat the images of the total body and abdomen were obtained at 24 and 28 hours post-injection. SPECT images of the chest were obtained at 24 hours post-injection. FINDINGS: The planar images obtained at 4, 24, and 48 hours post injection demonstrate physiological uptake in the liver, spleen, kidneys. Urinary bladder activity is visualized on the four-hour images but becomes progressively fainter between the 24 and 48 hours images. Some faint bowel activity is visualized and this is less intense at 24 hours and shows very significant clearing on the 48 -hour images. Focus of abnormal activity is demonstrated in the right upper quadrant in the expected region of the second portion of the duodenum, although this activity possible to be visualized in a periportal lymph node. Additional 4 to 5 foci of abnormal activity are visualized within the pelvis, within the left internal iliac lymph nodes. No other foci of abnormal activity are noted on any of the images. The SPECT images also demonstrate physiological uptake in the liver, spleen and kidneys, with no significant bowel activity visualized throughout. Right upper quadrant focus of activity likely within the duodenum or in the right additionally a lymph node. Additional 4 to 5 foci of activity are demonstrated within the pelvis on SPECT images. IMPRESSION: 1. Right upper quadrant focus of abnormal activity likely represents residual disease within the duodenum versus metastatic involvement of an adjacent retroperitoneal lymph node. 2. 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 Beryl Dutta MD Resident I personally reviewed the images and, if necessary, I edited the report. ??I agree with the report as now presented. 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 Statuspost resection with positive margins. TECHNIQUE: Following the intravenous injection of 5.1 mCi In-111 Octreoscan, wholebody planar images in the anterior and posterior projections were obtainedat 4 hours post-injection. SPECT images of the abdomen were then obtained.Repeat the images of the total body and abdomen were obtained at 24 and 28 hours post-injection.SPECT images of the chest were obtained at 24 hours post-injection. FINDINGS: The planar images obtained at 4, 24, and 48 hours post injectiondemonstrate physiological uptake in the liver, spleen, kidneys. Urinarybladder activity is visualized on the four-hour images but becomesprogressively fainter between the 24 and 48 hours images. Some faint bowel activity is visualized and this is less intenseat 24 hours and shows very significant clearing on the 48 -hour images. Focus of abnormal activity is demonstrated in the right upper quadrant inthe expected region of the second portion of the duodenum, although thisactivity possible to be visualized in a periportal lymph node. Additional 4 to 5 foci of abnormal activity are visualized within thepelvis, within the left internal iliac lymph nodes. No other foci of abnormal activity are noted on any of the images. The SPECT images also demonstrate physiological uptake in the liver,spleen and kidneys, with no significant bowel activity visualizedthroughout. Right upper quadrant focus of activity likely within theduodenum or in the right additionally a lymph node. Additional 4 to 5 foci of activity are demonstrated within thepelvis on SPECT images. IMPRESSION: 1. Right upper quadrant focus of abnormal activity likely representsresidual disease within the duodenum versus metastatic involvement of anadjacent retroperitoneal lymph node. 2. Additional foci of abnormal activity within the lower pelvis likelyrepresenting metastatic involvement of the left internal iliac lymphnodes. Beryl Dutta MD Resident I personally reviewed the images and, if necessary, I edited the report.I agree with the report as now presented. Dictated by: Beryl Dutta MD Dictated: 09/30/2013 4:24 pm Resident: Beryl Dutta MD Electronically Signed by: Kehinde Landrum MD Verified: 09/30/2013 6:20 pm Transcribed by: Conversion Provider MD [facility] URES documented in this encounter Visit Diagnoses Not on filedocumented in this encounter Care Teams Brewer Helper Relationship Specialty Start Date End Date Consuelo Hobbs PA-C PCP - General 07/06/15 documented as of this encounter
--- OUTSIDE RECORDS SUMMARY | 2023-10-29 17:52 | XMS_ITS | Clinical Summary ---
Author Organization [facility] Address [address] [place] [address] Care Team Providers Care Comb Winder Name Role Phone Unavailable Primary Care Provider Unavailabl e Allergies No known active allergies Medications Medication Sig Dispensed Refills Start Date End Date Status CAFERGOT 1-100 MG per tablet 6 07/30/2015 Active paregoric 2 MG/5ML solution 0 08/12/2015 Active rizatriptan (MAXALT-STAVE INSPECTOR) 10 MG disintegrating tablet 0 07/31/2015 Active traZODone (DESYREL) 150 MG tablet 0 07/30/2015 Active HYDROcodone-acetaminophe n (NORCO) 5-325 MG per tablet Take 1 tablet by mouth every 6 (six) hours as needed for pain. 0 Active Family History Medical History Relation Name Comments Cancer Mother Relation Name Status Comments Mother Social History Tobacco Use Types Packs/Day Years Used Date Smoking Tobacco: Some Days Tobacco Cessation:Ready to Q uit: No Alcohol Use Standard Drinks/Week Comments Yes 28 (1 standard drink = 0.6 oz pu re alcohol) Sex and Gender Information Value Date Recorded Sex Assigned at Not on file Gender Identity Not on file Sexual Orientation Not on file Plan of Treatment Health Maintenance Due Date Last Done Comments Hepatitis B Vaccines (1 of 3 - 3-dose series) 1972 Hepatitis C Screening 1972 COVID-19 Vaccine (#1) 1972 Pneumococcal Vaccine (1 of 2 - PCV) 1978 Depression Screening 1984 Preventative Health Evaluation 1990 DTap / Tdap / Td (1 - Tdap) 1991 Cervical Cancer Screening (P ap Smear) 1993 Colon Cancer Screening (Colonoscopy) 2017 Breast Cancer Screening (Mammogram) 2022 Shingrix-Zoster Vaccine (1 of 2) 2022 Influenza Vaccine (#1) 2023 RSV Ped < 20 months Aged Out No longe r eligible based on patient's age to complete this topic
--- OUTSIDE RECORDS SUMMARY | 2023-10-29 17:52 | XMS_ITS | Encounter Summary ---
Author Organization [facility] Address [address] [place] [address] Care Team Providers Care Auto Technician Mechanic Name Role Phone Raysa Whatley NP Primary Care Provider Encounter Details Date Type Department Care Team ([facility] st Contact Info) Description 07/27/2022 Scanned Document [facility] [place] [address] [place] [address] Delmy Beck MD [address] [place] [address] [facility] Radiology Note - Faby Cordero Social History Tobacco Use Types Packs/Day Years [...] Description 11/22/2023 11:00 AM EDT Office Visit [facility] [address] [address] Delmy Beck MD [address] [place] [phone] AOV, last in 07/19/22 documented as of this encounter Visit Diagnoses Not on filedocumented in this encounter Care Teams Auto Technician Mechanic Relationship Specialty Start Date End Date Raysa Whatley NP [address] [place] [id number] PCP - General 04/08/19 documented as of this encounter
--- OUTSIDE RECORDS SUMMARY | 2023-10-29 17:52 | XMS_ITS | Encounter Summary ---
Author Organization [facility] Address [address] [place] [address] Care Team Providers Care Media Production Operator Name Role Phone Latoya Alcaraz MD Primary Care Provider [phone] Reason for Visit * Reason Comments Diarrhea Flank Pain Encounter Details Date Type Department Care Team (Late st Contact Info) Description 10/14/2017 8:01 AM EDT - 10/14/2017 12:48 PM EDT Emergency [facility] Emergency Department [address] [place] [phone] Sarita Mueller MD [address] [place] [address] [place] [address] Diarrhea (Primary Dx); Diarrhea, unspecified type; Bilateral flank pain Discharge Disposition: Home or Self Care Social [...] Reading Time Taken Comments Blood Pressure 123/66 10/14/2017 10:49 AM EDT Pulse 69 10/14/2017 10:49 AM EDT Temperature 36.2 ??C (97.2 ??F) 10/14/2017 7:54 AM ED T Respiratory Rate 18 10/14/2017 10:49 AM EDT Oxygen Saturation 100% 10/14/2017 10:49 AM EDT Inhaled Oxygen Concentration - - Weight - - Height - - Body Mass Index - - documented in this encounter Discharge Instructions * Discharge Instructions* Chaparro Mckeon MD - 10/14/2017 12:07 PM EDT * Attachments The following attachments cannot be sent through Care Everywhere. * Diarrhea, Adult (Bulgarian) documented in this encounter Medications at Time of Discharge Medication Sig Dispensed Refills Start Date End Date famotidine (PEPCID) 40 MG tablet Take 1 tablet (40 mg total) by mouth daily. [address] Particles capsule 36,000 Units 3 (three) times a day with meals. 0 07/30/2015 12/14/2021 ergotamine-caffeine (CAFERGOT) 1-100 MG per tabletIndications:Migrain e with status migrainosus, not intractable, unspecified migraine type TAKE 1 TABLET BY MOUTH TWICE DAILY NEEDED 12 tablet 3 12/06/2016 06/30/2022 Oxycodone-Acetaminophen (PERCOCET PO) Take by mouth as needed. 0 10/02/2019 PANTOprazole (PROTONIX) 40 MG EC tablet TK 1 T PO QD 3 06/28/2016 10/02/2019 paregoric 2 MG/5ML solution 0 08/12/2015 11/25/2019 rizatriptan (MAXALT-RN DIALYSIS) 10 MG disintegrating tabletIndications:Migrain e with status migrainosus, not intractable, unspecified migraine type DISSOLVE ONE TABLET BY MOUTH EVERY DAY NEEDED 9 tablet 0 03/30/2017 08/26/2022 traZODone (DESYREL) 150 MG tablet 0 07/30/2015 10/02/2019 documented as of this encounter ED Notes * Arminda Hsu RN - 10/14/2017 11:22 AM EDT Labs WDL, plan for PO trial and DC if able to eat. Given saltines/poncho elpidio, pt/family updated andagreeable to [facility]. Arminda Hsu RN 10/14/17 1122 * Sarita Mueller MD - 10/14/2017 9:08 AM EDT History Chief Complaint Patient presents with ??? Diarrhea ??? Flank Pain I personally evaluated the patient. I reviewed the AP's or resident???s findings, supervised the management of the patient, and I agree with the treatment and plan. Further, I agree with the controlled substance prescriptions(s) and/or order(s) as written by the AP, if any. My note reflects my personal findings on my history and exam. HPI: Associated symptoms and Additional history: 47-year-old female presented with diarrhea and flank pain. Per patient, reports of 3 day history of intermittent diarrhea. Patient has a history of chronicdiarrhea but the past 3 days has been much more increased in duration. Nonbloody in nature. Patientalso reports of intermittent flank pain bilaterally. No pain with urination, no hematuria. Denies any fevers, chills. Denies any recent travel or sick contacts. Denies any changes to her medications.Took ibuprofen for pain control with moderate relief of symptoms. Additional HPI Past Medical History: Diagnosis Date ??? Cancer (HCC) ??? IBS (irritable bowel syndrome) ??? Migraines Past Surgical History: Procedure Laterality Date ??? HEMICOLECTOMY Right ??? TONSILECTOMY, ADENOIDECTOMY, BILATERAL MYRINGOTOMY AND TUBES Family History Problem Relation Age of Onset ??? Heart disease Father ??? Hypertension Father ??? Hypertension Mother ??? Hypertension Brother Social History Tobacco Use ??? Smoking status: Current Every Day Smoker ??? Smokeless tobacco: Never Used Substance Use Topics ??? Alcohol use: Yes Alcohol/week: 1.2 oz Types: 2 Glasses of wine per week ??? Drug use: Not on file Review of Systems Constitutional: Negative for fever. HENT: Negative for sore throat. Eyes: Negative for photophobia. Respiratory: Negative for shortness of breath. Cardiovascular: Negative for chest pain. Gastrointestinal: Positive for abdominal pain and diarrhea. Negative for nausea and vomiting. Genitourinary: Positive for flank pain. Negative for dysuria. Musculoskeletal: Negative for back pain. Skin: Negative for color change. Neurological: Negative for dizziness and headaches. Hematological: Negative for adenopathy. Psychiatric/Behavioral: Negative for confusion. Physical Exam BP (!) 142/75 (BP Location: Left arm, Patient Position: Sitting) Pulse 65 Temp 97.2 ??F (36.2 ??C) (Tympanic) Resp 18 LMP 10/02/2017 SpO2 97% Physical Exam Constitutional:Average build body habitus female, no acute distress, looks stated age She is oriented to person, place, and time. She appears well- developed and well-nourished. No distress. Head:Normocephalic and atraumatic. Eyes:Conjunctivae are normal. Pupils are equal, round, and reactive to light. Neck:Normal range of motion. Neck supple. Cardiovascular: Normal rate, regular rhythm and normal heart sounds. Exam reveals no gallop and no friction rub. No murmur heard. Respiratory:Effort normal and breath sounds normal. No respiratory distress. She has no wheezes. She has no rales. Gastrointestinal: Mild CVA tenderness bilaterally Soft. Bowel sounds are normal. She exhibits no distension. There is no tenderness. There is CVA tenderness. There is no rebound. No hernia. Musculoskeletal: Normal range of motion. She exhibits no edema or deformity. . Skin: Skin is warm and dry. Neurological: She is alert and oriented to person, place, and time. No cranial nerve deficit. Coordination normal. Psychiatric:She has a normal mood and affect. Nursing note and vitals reviewed. ED Course MDM: Clinical Impression Notes: 47-year-old female presented with diarrhea and flank pain. Low suspicion for appendicitis without focality of symptoms. Low suspicion for pyelonephritis without fevers, chills, pain with urination. Low suspicion for obstruction with appropriate p.o. intake. Bedside academic ultrasound showed no evidence of hydronephrosis, stones urinalysis showed no evidence of infection. CBC, chemistry showed noacute abnormalities. Patient is well-appearing on exam. Abdominal exam is unremarkable, nonsurgical, no indication for imaging at this time. Patient received IV fluid bolus and pain control with significant relief of symptoms. On reassessment, patient denies any pain. Discussed patient course of ERcare. Discussed patient negative workup. Discussed patient return precautions. Will be discharged home with close PCP follow-up. Patient understood and agree with plan. Amount and/or Complexity of Data Reviewed: Review and summarize pertinent medical records Outpatients oncology clinic follow-ups No orders to display Sarita Mueller MD 10/14/17 1225 * Chaparro Mckeon MD - 10/14/2017 8:22 AM EDT History Chief Complaint Patient presents with ??? Diarrhea ??? Flank Pain HPI 47 yo F with PMH of IBS, migraine s/p endoscopy and colonoscopy and cancer presented with chief complaint of diarrhea and flank pain of 3 days duration. Pt stated that she has chronic diarrhea but she has had worsening episodes since Monday with bilateral flank pain 10/10. She denies any bloody diarrhea. She also endorsed vertigo that resolves with sitting down. On ROS she denies any n/v, fever/chills. dysuria, hematuria. Past Medical History: Diagnosis Date ??? Cancer (HCC) ??? IBS (irritable bowel syndrome) ??? Migraines Past Surgical History: Procedure Laterality Date ??? HEMICOLECTOMY Right ??? TONSILECTOMY, ADENOIDECTOMY, BILATERAL MYRINGOTOMY AND TUBES Family History Problem Relation Age of Onset ??? Heart disease Father ??? Hypertension Father ??? Hypertension Mother ??? Hypertension Brother Social History Tobacco Use ??? Smoking status: Current Every Day Smoker ??? Smokeless tobacco: Never Used Substance Use Topics ??? Alcohol use: Yes Alcohol/week: 1.2 oz Types: 2 Glasses of wine per week ??? Drug use: Not on file Review of Systems Constitutional: Positive for appetite change. Negative for chills and fever. Respiratory: Negative for shortness of breath. Cardiovascular: Negative for chest pain. Gastrointestinal: Positive for abdominal pain and diarrhea. Negative for blood in stool, nausea andvomiting. Genitourinary: Positive for flank pain. Negative for decreased urine volume, difficulty urinating, dysuria and hematuria. Neurological: Positive for dizziness. Physical Exam BP (!) 142/75 (BP Location: Left arm, Patient Position: Sitting) Pulse 65 Temp 97.2 ??F (36.2 ??C) (Tympanic) Resp 18 LMP 10/02/2017 SpO2 97% Physical Exam Constitutional: She is oriented to person, place, and time. She appears well- developed and well-nourished. No distress. Cardiovascular: Normal rate, regular rhythm and normal heart sounds. No murmur heard. Respiratory:Effort normal and breath sounds normal. No respiratory distress. She has no wheezes. Gastrointestinal: Increased bowel sounds, non tender to palpation, bilateral CVA tenderness Skin: Skin is warm and dry. No rash noted. Neurological: She is alert and oriented to person, place, and time. She has normal reflexes. Psychiatric:She has a normal mood and affect. Her behavior is normal. ED Course MDM: Clinical Impression Notes: 47 yo with cp of bilateral flank pain and diarrhea Renal ultrasound ruled out renal stone No concern for pyelonephritis, no leukocytosis or fever or ROS Most like medication side effect No orders to display Chaparro Mckeon MD Resident 10/14/17 1153 Chaparro Mckeon MD Resident 10/14/17 1213 documented in this encounter Miscellaneous Notes * ED Update - Chaparro Mckeon MD - 10/14/2017 11:52 AM EDT ED UPDATE: 11:52 AM patient flank pain improved, tolerated PO documented in this encounter Plan of Treatment Upcoming Encounters Date Type Department Care Team (Late st Contact Info) Description 11/13/2023 7:45 AM EDT Office Visit [facility] Medical Oncology at [address] [phone] Ricci Carter MD [address] [place] [address] 11/13/2023 8:30 AM EDT Infusion [facility] [place] [facility] [address] [phone] Ricci Carter MD [address] [place], [place] [phone] Keiko Hallman MD [address] [facility] [place] [address] 11/20/2023 11:00 AM EDT Appointment [facility] [address] [place] [phone] Ricci Carter MD [address] [place], [place] [phone] 11/20/2023 11:30 AM EDT Appointment [facility] [address] [phone] Ricci Carter MD [address] [place] [phone] 03/05/2024 11:00 AM EST Consult [facility] Cardiology [address] [place] [phone] Ricci Carter MD [address] [place], [place] [phone] Jamil Ralph MD [address] [facility] [address] [place] [phone] 05/30/2024 9:00 AM EST Office Visit [facility] Department of Internal Medicine [facility] [address] [facility] [address] [place] [phone] Consuelo Hobbs PA-C [address] [facility] [address] [place] [phone] documented as of this encounter Procedures Procedure Name Priority Date/Time Associated Diagnosis Comments COMPLETE BLOOD COUNT, WITH DIFFERENTIAL STAT 10/14/2017 9:27 AM EDT COMPREHENSIVE METABOLIC PANEL STAT 10/14/2017 9:27 AM EDT POCT , URINE Routine 10/14/2017 9:06 AM EDT POCT URINALYSIS DIPSTICK (IN-HOUSE) Routine 10/14/2017 9:05 AM EDT URINALYSIS WITH REFLEX TO CULTURE Routine 10/14/2017 9:04 AM EDT documented in this encounter Results * Comprehensive Metabolic Panel (10/14/2017 9:27 AM EDT) Glucose 91 65 - 99 mg/dL [facility] Comment:Fasting: <100 mg/dL, Non-Fasting: <200 mg/dL (ADA 2005) Blood Urea Nitrogen (BUN) 10 8 - 21 mg/dL [facility] Creatinine 0.7 0.4 - 1.1 mg/dL [facility] eGFR >60 >59 [facility] Comment:MDRD in mL/min/1.73 sq meters. GFR - >60 >59 [facility] Comment:MDRD in mL/min/1.73 sq meters. Sodium 139 136 - 145 mmol/L [facility] Potassium 4.2 3.4 - 5.3 mmol/L [facility] Comment:Slight hemolysis Chloride 101 98 - 107 mmol/L [facility] CO2 28 22 - 33 mmol/L [facility] Calcium 9.0 8.7 - 10.5 mg/dL [facility] Alkaline Phosphatase 55 32 - 122 U/L [facility] Aspartate Aminotrans (AST) 31 10 - 50 U/L [facility] Comment:Slight hemolysis Alanine Aminotrans (ALT) 17 10 - 50 U/L [facility] Bilirubin, Total 0.3 0.2 - 1.0 mg/dL [facility] Protein, Total 6.6 6.3 - 8.3 g/dL [facility] Albumin 3.8 3.5 - 5.0 g/dL [facility] BUN/Creatinine Ratio 14 10.0 - 25.0 Ratio [facility] Globulin 2.8 1.5 - 3.9 g/dL [facility] Albumin/Globulin Ratio 1.4 1.0 - 3.0 Ratio [facility] Anion Gap 10 7 - 17 [facility] Comment:Performed at [facility], [place] license No. [id number] CLIA No. [id number] Blood specimen (specimen) Blood specimen / Unknown 10/14/2017 9:27 AM EDT 10/14/2017 9:43 AM EDT Sarita Mueller MD LAB BLOOD ORDERABL ES [facility] * (ABNORMAL) Complete Blood Count, with Differential (10/14/2017 9:27 AM EDT) White Blood Cell Count 7.5 4.0 - 11.0 Thou/uL [facility] Platelet Count 198 150 - 450 Thou/uL [facility] Hemoglobin 11.7 11.7 - 15.7 g/dL [facility] Hematocrit 34.6(L) 35.0 - 47.0 % [facility] Red Blood Cell Count 3.88(L) 4.00 - 5.40 Mil/uL [facility] MCV 89 80 - 100 fL [facility] MCH 30.2 26.0 - 34.0 pg [facility] MCHC 33.8 30.0 - 36.0 g/dL [facility] RDW 13.4 11.5 - 14.5 % [facility] MPV 11.0 9.4 - 12.5 fL [facility] Neutrophils Auto 44.1 % [facility] Immature Granulocytes 0.1 % [facility] Lymphocytes Auto 43.7 % [facility] Monocytes Auto 8.9 % [facility] Eosinophils Auto 2.7 % [facility] Basophils Auto 0.5 % [facility] Abs Neutrophils Auto 3.30 2.00 - 7.50 Thou/uL [facility] Abs Immature Granulocytes 0.01 0.00 - 0.10 Thou/uL [facility] Abs Lymphocytes Auto 3.28 1.50 - 4.50 Thou/uL [facility] Abs Monocytes Auto 0.67 0.20 - 1.50 Thou/uL [facility] Abs Eosinophils Auto 0.20 0.00 - 0.70 Thou/uL [facility] Abs Basophils Auto 0.04 0.00 - 0.20 Thou/uL [facility] Comment:Performed at [facility], [place] license No. [id number] CLIA No. [id number] Blood specimen (specimen) Blood specimen / Unknown 10/14/2017 9:27 AM EDT 10/14/2017 9:43 AM EDT Sarita Mueller MD LAB BLOOD ORDERABL ES Performing Organization Address City/[facility]/ZIP Co de Phone Number [facility] * , Urine (POCT) (10/14/2017 9:06 AM EDT) Preg Test, Ur Negative Negative [facility] Lot Number 1 [facility] Chief Nursing Officer [place] [facility] Urine 10/14/2017 9:06 AM EDT Tino Ball MD POINT OF CARE TEST ORDERABLES Performing Organization Address [facility] Co de Phone Number [facility] * (ABNORMAL) Urinalysis Dipstick (POCT) (10/14/2017 9:05 AM EDT) Source, UA Voided [facility] Color, UA Yellow & Clear Yellow & Clear, Yellow [facility] Clarity, UA Clear Clear [facility] Glucose, UA Negative Negative [facility] Bilirubin, UA Negative Negative [facility] Ketones, UA Negative Negative [facility] Spec Grav, UA 1.005 1.003 - 1.030 [facility] Blood, UA Hemolyzed (Trace)(A) Negative [facility] pH, UA 5.5 5 - 8 [facility] Protein, UA Negative Negative [facility] Urobilinogen, UA 0.2 0.2 - 1.0 mg/dL [facility] Nitrite, UA Negative Negative [facility] Leukocyte Esterase, UA Negative Negative [facility] Lot Number 1 [facility] Chief Nursing Officer [place] [facility] Urine 10/14/2017 9:05 AM EDT Tino Ball MD POINT OF CARE TEST ORDERABLES Performing Organization Address [facility]/ZIP Co de Phone Number [facility] * (ABNORMAL) Urinalysis with Reflex to Culture (10/14/2017 9:04 AM EDT) Specimen: Clean Catch [facility] Color Straw [facility] Clarity Clear [facility] Specific Hubbell 1.006 1.003 - 1.030 [facility] pH 6.0 5.0 - 8.0 [facility] Leukocyte Esterase Negative Negative [facility] Nitrite Negative Negative [facility] Protein Negative Negative [facility] Glucose 0 0 - 99 mg/dL [facility] Ketones Negative Negative [facility] Blood Small(A) Negative [facility] Bilirubin Negative Negative [facility] Urobilinogen <2.0 <2.0 mg/dL [facility] WBC 0 0 - 4 per hpf [facility] RBC 1 0 - 4 per hpf [facility] Squamous Epithelial Cells 1 PER HPF [facility] Crystals Absent [facility] Remarks Urinalysis results are not indicative of infection. Culture not performed. [facility] Comment:Performed at [place], [place] license No. [id number] CLIA No. [id number] X-Specimen 16 Urine specimen obtained by clean catch procedure / Unknown 10/14/2017 9:04 AM EDT 10/14/2017 10:12 AM EDT Sarita Mueller MD URINE ORDERABLES [facility] documented in this encounter Visit Diagnoses Diagnosis Diarrhea- Primary Diarrhea, unspecified type Bilateral flank pain Abdominal pain, unspecified site documented in this encounter Administered Medications Inactive Administered Medications - up to 1 most recent administrations Medication Order MAR Action Action Date Dose Rate Site sodium chloride 0.9 % (NS) bolus 1,000 mL, Intravenous, Administer over 0.5 Hours, Once, On 10/14/17 at 0918, For 1 dose New Bag 10/14/2017 9:47 AM EDT 1,000 mL 2000 mL/hr morphine 10 mg/mL injection 2 mg 2 mg, Intravenous, Once, On 10/14/17 at 0925, For 1 dose, For IV Push: Administer over 3 minutes in 10 ml NS Given 10/14/2017 9:47 AM EDT 2 mg documented in this encounter Active and Recently Administered Medications Times are shown in EDT. Scheduled Medication Order 10/12/2017 10/13/2017 10/14/2017 sodium chloride 0.9 % (NS) bolus (COMPLETED) 1,000 mL, Intravenous, Administer over 0.5 Hours, Once, Sat 714/18 at 0918, For 1 dose 0947 (New Bag - Prov ider: Arminda Hsu, RN)1058 (Stopped - Provider: Arminda Hsu, MAYA)1059 (Stopped - Provider: Arminda Hsu, RN) morphine 10 mg/mL injection 2 mg (COMPLETED) 2 mg, Intravenous, Once, 10/14/17 at 0925, For 1 dose, For IV Push: Administer over 3 minutes in 10 ml NS 0947 (Given - Provid er: Arminda Hsu RN) documented in this encounter Care Teams Media Production Operator Relationship Specialty Start Date End Date Latoya Alcaraz MD [address] [place] [address] PCP - General Internal Medicine 02/16/16 04/30/19 documented as of this encounter
--- OUTSIDE RECORDS SUMMARY | 2023-10-29 17:52 | XMS_ITS | Encounter Summary ---
Author Organization [facility] Address [address] [place] [address] Care Team Providers Care Delivery Route Driver Name Role Phone Mitchell Mays MD Primary Care Provider [phone] Consuelo Hobbs PA-C Primary Care Provider Madi Sharp MD Unavailable [phone] Encounter Details Date Type Department Care Team (Late st Contact Info) Description 03/20/2017 Conversion Encounter [facility]E CARRIZALES RAD 85 [facility] [address] [place] [address] Ricci Carter MD [address] [place], [place] [phone] Social History Tobacco Use Types Packs/Day Years [...] Office Visit [facility] Medical Oncology at [address] [phone] Ricci Carter MD [address] [place], [place] [phone] 11/13/2023 8:30 AM EDT Infusion [facility] Cancer [place] [facility] Outpatient Infusion Center [address] [phone] Ricci Carter MD [address] [place], [place] [phone] Keiko Hallman MD 80 [facility] [place] [address] 11/20/2023 11:00 AM EDT Appointment [facility] Radiology [facility] [address] [place] [address] [phone] Ricci Carter MD [address] [place], [place] [phone] 11/20/2023 11:30 AM EDT Appointment [facility] Radiology [facility] [address] [place] [phone] Ricci Carter MD [address] [place], [place] [phone] 03/05/2024 11:00 AM EST Consult [facility] Cardiology [address] [place] [phone] Ricci Carter MD [address] [place] [address] Jamil Ralph MD [address] [facility] [address] [place] [address] 05/30/2024 9:00 AM EST Office Visit [facility] Department of Internal Medicine [facility] 1210 [facility] [address] [place] [address] Consuelo Hobbs PA-C 1210 [facility] [address] [place] [address] documented as of this encounter Procedures Procedure Name Priority Date/Time Associated Diagnosis Comments MR PELVIS WITH AND WITHOUT CONTRAST Routine 03/20/2017 8:30 AM EST MR ABDOMEN WITH AND WITHOUT CONTRAST Routine 03/20/2017 8:00 AM EST documented in this encounter Results * MR PELVIS WITH AND WITHOUT CONTRAST (03/20/2017 8:30 AM EST) Anatomical Region Laterality Modality Other 03/20/2017 8:30 AM EST 03/20/2017 8:30 AM EST Narrative 03/20/2017 4:50 PM EST EXAMINATION: MRI [...] your patient to us, Juni Hunt MD [id number] (Electronically Signed - 03/20/2017 16:50) Copy: RUSTY ROBLEDO MD [facility] [place] [address] [place] [address] MITCHELL MAYS MD [address] 85 [facility] [address] [place] [address] Procedure Note Juni Hunt MD - 11/18/2019 EXAMINATION: MRI ABDOMEN AND PELVIS WITH AND [...] approximately 2.6 x 1.8 cm (series 1602 [id number]). Compared to the previous examination, there has [...] your patient to us, Juni Hunt MD [id number] (Electronically Signed - 03/20/2017 16:50) Copy: RUSTY ROBLEDO MD [facility] [place] [address] [place] [address] MITCHELL MAYS MD [facility] [place] [address] [place], [place] [phone] Ricci Carter MD IMG LEGACY PROCEDURE S * MR ABDOMEN WITH AND WITHOUT CONTRAST (03/20/2017 8:00 AM EST) Anatomical Region Laterality Modality Other 03/20/2017 8:00 AM EST 03/20/2017 8:00 AM EST Narrative 03/20/2017 4:50 PM EST EXAMINATION: MRI [...] your patient to us, Juni Hunt MD [id number] (Electronically Signed - 03/20/2017 16:50) Copy: RUSTY ROBLEDO MD [facility] [place] [address] [place] [address] MITCHELL MAYS MD [facility] [place]- [address] [place] [address] Procedure Note Juni uHnt MD - 11/18/2019 EXAMINATION: MRI ABDOMEN AND PELVIS WITH AND [...] approximately 2.6 x 1.8 cm (series 1602 [id number]). Compared to the previous examination, there has [...] your patient to us, Juni Hunt MD [id number] (Electronically Signed - 03/20/2017 16:50) Copy: RUSTY ROBLEDO MD [facility] [place] 85 [facility] [address] [place] [address] MITCHELL MAYS MD [facility] [address] 85 [facility] [address] [place] [address] [phone] Ricci Carter MD IMG LEGACY PROCEDURE S documented in this encounter Visit Diagnoses Not on filedocumented in this encounter Care Teams Delivery Route Driver Relationship Specialty Start Date End Date Mitchell Mays MD [address] [address] PCP - General Internal Medicine 02/16/16 04/30/19 Consuelo Hobbs PA-C [address] [place] [address] PCP - General 05/01/19 Madi Sharp MD [address] [address] Gastroenterology 10/02/19 documented as of this encounter
--- OUTSIDE RECORDS SUMMARY | 2023-10-29 17:52 | XMS_ITS | Encounter Summary ---
Author Organization [facility] Address [address] [place] [address] Care Team Providers Care Wedding Photographer Name Role Phone Mitchell Mays MD Primary Care Provider [phone] Encounter Details Date Type Department Care Team (Late st Contact Info) Description 03/20/2017 Orders Only HH AMB INBD INTERFACE 80 [place] [address] Provider, Generic Social History Tobacco Use Types [...] Visit [facility] Medical Oncology at [address] [phone] Ricci Carter MD [address] [place] [address] 11/13/2023 8:30 AM EDT Infusion [facility] Cancer [place] at [facility] Outpatient Infusion [address] [phone] Ricci Carter MD [address] [place] [address] Keiko Hallman MD 80 [facility] [place] [address] 11/20/2023 11:00 AM EDT Appointment [facility] Radiology [place] [facility] [address] [place] [phone] Ricci Carter MD [address] [place], [place] [phone] 11/20/2023 11:30 AM EDT Appointment [facility] Radiology [address] [phone] Ricci Carter MD [address] [place], [place] [phone] 03/05/2024 11:00 AM EST Consult [facility] Medical [facility] Cardiology [address] [place] [phone] Ricci Carter MD [address] [place] [address] Jamil Ralph MD [address] [place] [address] [address] 05/30/2024 9:00 AM EST Office Visit [facility] Department of Internal Medicine [facility] 1210 [facility] [address] [place], [place] [phone] Consuelo Hobbs PA-C [facility]10 [facility] [address] [place] [address] documented as of this encounter Procedures Procedure Name Priority Date/Time Associated Diagnosis Comments MRI PELVIS W W/O CONTRAST Routine 03/20/2017 4:50 PM EST documented in this encounter Results * MRI Pelvis w w/o contrast (03/20/2017 4:50 PM EST) Anatomical Region Laterality Modality Pelvis Magnetic Resonan ce 03/20/2017 8:30 AM EST 03/20/2017 8:30 AM EST Impressions 03/20/2017 4:50 PM EST [...] your patient to us, Juni Hunt MD [id number] (Electronically Signed - 03/20/2017 16:50) Copy: RUSTY ROBLEDO MD [facility] [place] 85 [facility] [address] [place] [address] MITCHELL MAYS MD [address] 85 [facility] [address] [place] [address] Narrative 03/20/2017 4:50 PM EST EXAMINATION: MRI [...] your patient to us, Juni Hunt MD [id number] (Electronically Signed - 03/20/2017 16:50) Copy: RUSTY ROBLEDO MD [facility] [place] [address] [place] [address] [phone] MITCHELL MAYS MD [facility] [place]- [address] [place] [address] [facility] [address] [place] [address] Generic Provider IMG MRI ORDERABLES documented in this encounter Visit Diagnoses Not on filedocumented in this encounter Care Teams Wedding Photographer Relationship Specialty Start Date End Date Mitchell Mays MD 85 [facility] [address] [place] [address] PCP - General Internal Medicine 02/16/16 04/30/19 documented as of this encounter
--- OUTSIDE RECORDS SUMMARY | 2023-10-29 17:52 | XMS_ITS | Encounter Summary ---
Author Organization [facility] Address [address] [place] [address] Care Team Providers Care Plant Protection Superintendent Name Role Phone Pcp, No Primary Care Provider Latoya Nolasco MD Primary Care Provider [phone] Encounter Details Date Type Department Care Team (Late Contact Info) Description 02/15/2016 Orders Only HH AMB INBD INTERFACE 80 [place] [address] Ricci Carter MD [address] [place] [address] Social History Tobacco Use Types [...] Upcoming Encounters Date Type Department Care Team ([facility] Contact Info) Description 11/13/2023 7:45 AM EDT Office Visit [facility] Cancer [place] Medical Oncology at [address] [phone] Ricci Carter MD [address] [place], [place] [phone] 11/13/2023 8:30 AM EDT Infusion [facility] Cancer [place] at [facility] Outpatient Infusion Center [address] [phone] Ricci Carter MD [address] [place], [place] [phone] Keiko Hallman MD 80 [facility] [place] [address] 11/20/2023 11:00 AM EDT Appointment [facility] Radiology [facility] [address] [place] [phone] Ricci Carter MD [address] [place] [address] 11/20/2023 11:30 AM EDT Appointment [facility] Radiology [facility] [address] [place] [phone] Ricci Carter MD [address] [place], [place] [phone] 03/05/2024 11:00 AM EST Consult [facility] Cardiology [address] [place] [address] [phone] Ricci Carter MD [address] [place], [place] [phone] Jamil Ralph MD [address] [place] [facility] [address] [place] [address] 05/30/2024 9:00 AM EST Office Visit [facility] Department of Internal Medicine [facility] 1210 [facility] [address] [place] [address] Consuelo Hobbs PA-C 1210 [facility] [address] [place] [address] documented as of this encounter Procedures Procedure Name Priority Date/Time Associated Diagnosis Comments MRI ABDOMEN W W/O CONTRAST Routine 02/16/2016 4:50 PM EST documented in this encounter Results * MRI Abdomen w w/o contrast (02/16/2016 4:50 PM EST) Anatomical Region Laterality Modality Abdomen Magnetic Resonan ce 02/15/2016 10:1 5 AM EST 02/15/2016 10:15 AM EST Narrative 02/16/2016 4:50 PM EST [...] - 02/16/2016 16:50) Copy: CARLOS PADRON MD [address] [place] [address] KIAN DONAHUE MD [facility] [address] [place] [address] Procedure Note Salvatore Barrios MD - [...] - 02/16/2016 16:50) Copy: CARLOS PADRON MD [address] [place] [address] KIAN DONAHUE MD [facility] [address] [place] [address] Ricci Carter MD IMG MRI ORDERABLES documented in this encounter Visit Diagnoses Not on filedocumented in this encounter Care Teams Plant Protection Superintendent Relationship Specialty Start Date End Date Pcp, No PCP - General General Medicine 08/14/15 02/15/16 Latoya Alcaraz MD [address] [place] [phone] PCP - General Internal Medicine 02/16/16 04/30/19 documented as of this encounter
--- OUTSIDE RECORDS SUMMARY | 2023-10-29 17:52 | XMS_ITS | Clinical Summary ---
Author Organization [facility] Address [address] [place] [address] Care Team Providers Care Credit Reporting Clerk Name Role Phone Raysa Whatley NP Primary Care Provider Allergies Active Allergy Reactions Criticality Noted Date Comments Cefaclor Unknown Erythromycin Unknown Levofloxacin Unknown Medications Medication Sig Dispensed Refills Start Date End Date Status colestipoL (Colestid) 1 gram tablet 06/20/2022 Active granisetron (KYTRIL) 1 mg tablet Take 2 tablets (2 mg total) by mouth 1 (one) time each day. 06/20/2022 Active ergotamine-caffeine (CAFERGOT) 1-100 mg tablet Take 1 tablet by mouth 2 (two) times a day if needed. 07/01/2022 Active Creon 36,000-114,000- 180,000 unit capsule,delayed release(DR/EC) capsule TAKE 1 CAPSULE BY MOUTH THREE TIMES DAILY WITH MEALS . DOSE IS IN UNITS OF LIPASE 06/20/2022 Active rizatriptan OUTSOLE CEMENTER (MAXALT-OUTSOLE CEMENTER) 10 mg dispersible tablet DISSOLVE 1 TABLET ON THE TONGUE EVERY DAY NEEDED 07/01/2022 Active loperamide HCl (IMODIUM ORAL) Take by mouth. Active octreotide acetate (SANDOSTATIN INJ) Inject as directed. Active omeprazole (PriLOSEC) [address] capsule Take 1 capsule (40 mg total) by mouth 1 (one) time each day. Do not crush or chew. Active multivitamin capsule Take 1 capsule by mouth 1 (one) time each day. Active calcium carbonate (CALCIUM ORAL) Take by mouth. Active busPIRone (Buspar) 10 mg tablet Take 1 tablet (10 mg total) by mouth 1 (one) time each day. 12/17/2021 Active Immunizations Name Administration Dates Next Due Influenza (IM) Preservative Free 01/21/2014 Family History Medical History Relation Name Comments Hyperlipidemia Brother Hypertension Brother Heart disease Father Hyperlipidemia Father Hypertension Father Alzheimer's disease Maternal Grandmother Hypertension Mother Relation Name Status Comments Brother Alive Father Maternal Grandmother Mother Alive Social History Tobacco Use Types Packs/Day Years Used Date Smoking Tobacco: Former Cigarettes Smokeless Tobacco: Never Tobacco Cessation:Counseling Given: Not [...] on file Sexual Orientation Not on file Last Filed Vital Signs Vital Sign Reading Time Taken Comments Blood Pressure 124/76 07/19/2022 10:55 AM EDT Pulse - - Temperature - - Respiratory Rate - - Oxygen Saturation - - Inhaled Oxygen Concentration - - Weight 74.8 kg (165 lb) 07/19/2022 10:55 AM EDT Height 160 cm (5' 3) 07/19/2022 10:55 AM EDT Body Mass Index 29.23 07/19/2022 10:55 AM EDT Plan of Treatment Upcoming Encounters Date Type Department Care Team (Late st Contact Info) Description 11/22/2023 11:00 AM EDT Office Visit [facility] REHABILITATION NURSE [address] [phone] Delmy Beck MD [address] [place] [phone] AOV, last in 07/19/22 Health Maintenance Due Date Last Done Comments Hepatitis C Screening 1972 Lipid Panel 1972 MMR Vaccines (1 of 1 - Standard series) 1973 Pneumococcal Vaccine: Peds (0 to 5 Yrs) and At-Risk Pts (6 to 64 Yrs) (1 of 2 - PCV) 1978 Hepatitis B Vaccines (1 of 3 - 19+ 3-dose series) 1991 COVID-19 Vaccine (4 - 2022- season) 2022 11/27/2020, 07/29/2020, 07/02/2020 Mammogram 07/28/2023 07/27/2022, 07/03, 06/07/2022, Additional history exists Influenza Vaccine (#1) 2023 , 01/14/2023, 03/09/2021, Additional history exists Annual Physical Exam 05/30/2024 05/30/2023, 07/20/19 Pap Smear 07/19/2025 07/19/2022, 01/02, 11/24/2015, Additional history exists Tdap and Td Vaccines Adult 04/03/2026 04/03/2016 Cervical Cancer Screening 07/20/2027 HPV/Cotest 07/20/2027 07/19/2022 Colonoscopy Discontinued 05/27/2013 Colorectal Cancer Screening Discontinued Zoster Vaccines Completed 09/13/2022, 06/07/2022 CT Colonography Discontinued FIT-DNA Discontinued FIT Discontinued FOBT Discontinued HIB Vaccines Aged Out No longer eligi ble based on patient's age to complete this topic HPV Vaccines Aged Out No longer eligi ble based on patient's age to complete this topic Hepatitis A Vaccines Aged Out No long er eligible based on patient's age to complete this topic Meningococcal Vaccine Aged Out No bre shanel eligible based on patient's age to complete this topic RSV <20 Months Aged Out No longer tutu gible based on patient's age to complete this topic Sigmoidoscopy Discontinued Procedures Procedure Name Priority Date/Time Associated Diagnosis Comments LIQUID-BASED PAP SMEAR, SCREENING Routine 07/19/2022 12:03 PM EDT Women's annual routine gynecological examination Screening for HPV (human papillomavirus) DIGITAL MAMMOGRAPHY SCREENING 3D Routine 02/25/2019 12:00 AM EST COLONOSCOPY Routine 05/27/2013 12:00 AM EST from Last 3 Months or Most Recently Relevant to Health Maintenance Results * Liquid-Based Pap Smear, Screening (07/19/2022 12:03 PM EDT) Case Report Pap Test ?Case: [id number] ? Authorizing Provider: ??Delmy Beck MD ? Collected: ? 07/19/2022 1203 ? Ordering Location: ? [facility] [place] ??Received: ?07/19/2022 1203 ? [address] REHABILITATION NURSE [place] ? Specimen: ?Endocervical/Ce rvical ? 07/21/2022 3:15 PM EDT [facility] Interpretation Specimen A Negative for intraepithelial lesion or malignancy(NILM) 07/21/2022 3:15 PM EDT LABORATORY SERVICES Other Findings Shift in pat suggestive of bacterial vaginosis 07/21/2022 3:15 PM EDT LABORATORY SERVICES Gross Description A: Endocervical/Cerv ical Liquid-Based Pap, [facility], Screening Received 1 [facility] collection vial. 07/21/2022 3:15 PM EDT LABORATORY SERVICES Specimen Adequacy Specimen A Satisfactory for evaluation, endocervical/velásquez sformation zone component present 07/21/2022 3:15 PM EDT LABORATORY SERVICES Clinical Information No 07/21/2022 3:15 PM EDT LABORATORY SERVICES LMP 07/11/2022 07/21/2022 3:15 PM EDT LABORATORY SERVICES HPV Reflex? Perform with any PAP result 07/21/2022 3:15 PM EDT LABORATORY SERVICES Swab (Endocervical/Ce rvical) Non-blood Collection / Unknown 07/19/2022 12:03 PM EDT 07/19/2022 12:03 PM EDT Delmy Beck MD LAB CYTOLOGY ORDERAB LES [facility] [address] [place] [address], [address] [place] [address], [place] [address], [facility] LABORATORY SERVICES [id number] [place] [address], * DIGITAL MAMMOGRAPHY SCREENING 3D (02/25/2019 12:00 AM EST) Anatomical Region Laterality Modality Mammography 02/25/2019 7:19 AM EST Impressions 02/25/2019 12:32 PM EST Stable examination without suspicious features identified. Continued yearly screening mammographic follow-up is recommended. BI-RADS: ??1, Negative Narrative 02/25/2019 12:32 PM EST CLINICAL INFORMATION: screening PROTOCOL: Routine mammogram including craniocaudal and mediolateral oblique views with Computer Aided Detection. ??Tomographic views were also obtained. PRIOR PROCEDURES: RISK FACTOR: No family history of breast cancer RELATIVE RISK FACTOR: COMPARISON: 2013 LATERALITY: Bilateral FINDINGS: Breast Density: There are scattered areas of fibroglandular density. Slight to mild scattered residual fibroglandular densities are present involving both breasts without appreciated significant change in this parenchymal pattern. No discrete nodules, areas of architectural distortion or suspicious clustered microcalcifications are apparent bilaterally. Procedure Note Harsha Mathews MD - 05/18/2019 CLINICAL INFORMATION: screening PROTOCOL: Routine mammogram including craniocaudal and mediolateral oblique views with Computer Aided Detection. Tomographic views were also obtained. PRIOR PROCEDURES: RISK FACTOR: No family history of breast cancer RELATIVE RISK FACTOR: COMPARISON: 2013 LATERALITY: Bilateral FINDINGS: Breast Density: There are scattered areas of fibroglandular density. Slight to mild scattered residual fibroglandular densities are present involving both breasts without appreciated significant change in this parenchymal pattern. No discrete nodules, areas of architectural distortion or suspicious clustered microcalcifications are apparent bilaterally. IMPRESSION: Stable examination without suspicious features identified. Continued yearly screening mammographic follow-up is recommended. BI-RADS: 1, Negative Delmy Beck MD IMG BI PROCEDURES * Colonoscopy (05/27/2013 12:00 AM EST) Anatomical Region Laterality Modality Endoscopy 05/27/2013 [facility] GI PROC EDURE ORDERABLES from Last 3 Months or Most Recently Relevant to Health Maintenance Care Teams Credit Reporting Clerk Relationship Specialty Start Date End Date Raysa Whatley NP [address] [place] [phone] PCP - General 04/08/19
--- OUTSIDE RECORDS SUMMARY | 2023-10-29 17:53 | XMS_ITS | Encounter Summary ---
Author Organization [facility] Address [address] [place] [address] Care Team Providers Care Rib Matcher And Fitter Name Role Phone Raysa Whatley NP Primary Care Provider Encounter Details Date Type Department Care Team (Late st Contact Info) Description 06/07/2022 Scanned Document [facility] [place] [address] Delmy Beck MD [address] [place] [address] Jonathon Cordero Social History Tobacco Use Types Packs/Day Years Used Date Smoking Tobacco: Never Assessed Sex and Gender Information Value Date Recorded Sex Assigned at Not on file Gender Identity Not on file Sexual Orientation Not on file documented as of this encounter Plan of Treatment Upcoming Encounters Date Type Department Care Team (Late Contact Info) Description 11/22/2023 11:00 AM EDT Office Visit [facility] MAGAZINE FEEDER [address] [address] Delmy Beck MD [address] [place] [phone] AOV, last in 07/19/22 documented as of this encounter Visit Diagnoses Not on filedocumented in this encounter Care Teams Rib Matcher And Fitter Relationship Specialty Start Date End Date Raysa Whatley NP [address] [place] [phone] PCP - General 04/08/19 documented as of this encounter
--- OUTSIDE RECORDS SUMMARY | 2023-10-29 17:53 | XMS_ITS | Encounter Summary ---
Author Organization [facility] Address [address] [place] [address] Care Team Providers Care Gas Operations Superintendent Name Role Phone Raysa Whatley NP Primary Care Provider Reason for Visit * Reason Comments Initial Office Visit Annual Exam Encounter Details Date Type Department Care Team ([facility] st Contact Info) Description 07/19/2022 11:00 AM EDT Office Visit [facility] [place] [address] Delmy Beck MD [address] [place] [address] Women's annual routine gynecological examination (Primary Dx); Screening for HPV (human papillomavirus) Social History Tobacco Use Types Packs/Day Years [...] Mass Index 29.23 07/19/2022 10:55 AM EDT documented in this encounter Progress Notes * Delmy Beck MD - 07/19/2022 11:00 AM EDT STRATEGIC SOURCING SPECIALIST ANNUAL VISIT CURRENT CONCERNS: Chief Complaint Patient presents with Initial Office Visit Annual Exam Rody Sotelo is a 52 y.o. woman who presents for her annual exam. We last saw her in 2019. She has no complaints. Patient's last menstrual period was 07/11/2022 (exact date).. She is having normal menses monthly without complaints. 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 She and her were able to quit smoking together. NEW LIFE EVENTS: She denies any recent surgeries, changes in health, or new family history. SEXUAL HISTORY: She is sexually active. Any sexual complaints: none STI TESTING: Interested in screening today: No PREVENTIVE HEALTH SUMMARY PAP HISTORY: normal Pap w/neg HPV in 2019. She has never had an abnormal Pap in the past. MAMMO: 2022 through [facility] - ordered by PCP COLON CANCER SCREENING: Colonoscopy in 2020 Due again in 3 years. Her family history includes Alzheimer's disease in her maternal grandmother; Heart disease in her father; Hyperlipidemia in her brother and father; Hypertension in her brother, father, and mother. 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 calcium carbonate (CALCIUM ORAL) Take by mouth. colestipoL (Colestid) 1 gram tablet Creon 36,000-114,000- 180,000 unit capsule,delayed release(DR/EC) capsule TAKE 1 CAPSULE BY MOUTH THREE TIMES DAILY WITH MEALS . DOSE IS IN UNITS OF LIPASE ergotamine-caffeine (CAFERGOT) 1-100 mg tablet Take 1 tablet by mouth 2 (two) times a day if needed. granisetron (KYTRIL) 1 mg tablet Take 2 tablets (2 mg total) by mouth 1 (one) time each day. loperamide HCl (IMODIUM ORAL) Take by mouth. multivitamin capsule Take 1 capsule by mouth 1 (one) time each day. octreotide acetate (SANDOSTATIN INJ) Inject as directed. omeprazole (PriLOSEC) [address] capsule Take 1 capsule (40 mg total) by mouth 1 (one) time each day.Do not crush or chew. rizatriptan SALES DEVELOPMENT DIRECTOR (MAXALT-SALES DEVELOPMENT DIRECTOR) 10 mg dispersible tablet DISSOLVE 1 TABLET ON THE TONGUE EVERY DAY NEEDED No current facility-administered medications on file prior to visit. Past Surgical History: Procedure Laterality Date CHOLECYSTECTOMY COLON SURGERY 07/2013 Hemicolectomy, right HEMICOLECTOMY 2013 TONSILLECTOMY 1977 OB History Para Term AB Living 0 0 0 0 0 0 SAB IAB Ectopic Multiple Live Births 0 0 0 0 0 Obstetric Comments [facility] Associate Chief Nurse EMR conversion completed 07/14/22. Family History Problem Relation Name Age of Onset Hypertension Mother Hyperlipidemia Father Hypertension Father Heart disease Father Hypertension Brother Hyperlipidemia Brother Alzheimer's disease Maternal Grandmother Review of Systems ROS Positive for: Constitutional (fatigue), Gastrointestinal (diarrhea), Endocrine (weight gain), Eyes (vision changes) Negative for: Neurological, Skin, Genitourinary, Musculoskeletal, HENT, Cardiovascular, Respiratory, Psychiatric, Allergic/Imm, Heme/Lymph Last edited by Noelle Mosquera MA on 07/19/2022 11:18 AM. VS: Visit Vitals BP 124/76 Ht 5' 3 Wt 74.8 kg (165 lb) LMP 07/11/2022 (Exact Date) BMI 29.23 kg/m?? OB Status Premenopausal Smoking Status Former BSA 1.82 m?? Physical Exam Constitutional: General: She is not in acute distress. Appearance: Normal appearance. Neck: Thyroid: No thyroid mass or thyromegaly. Pulmonary: Effort: Pulmonary effort is normal. Chest: Breasts: Right: Normal. No mass or tenderness. Left: Normal. No mass or tenderness. Abdominal: General: Soft. There is no distension. Palpations: There is no mass. Tenderness: There is no abdominal tenderness. Genitourinary: Vulva: No lesion. Unremarkable. Normal appearance for age. Labia: No lesion. Unremarkable. Urethra: No urethral lesion. Vagina: No significant vaginal discharge or lesions. Cervix: No lesions. and No cervical motion tenderness. Uterus: Normal sized and Nontender Adnexa: Right adnexa normal and left adnexa normal. No mass or tenderness. Lymphadenopathy: No axillary adenopathy. No inguinal adenopathy. Neurological: Mental Status: She is alert and oriented to person, place, and time. Psychiatric: Mood and Affect: Mood normal. Behavior: Behavior is cooperative. Assessment/Plan Diagnoses and all orders for this visit: Women's annual routine gynecological examination - Liquid-Based Pap Smear, Screening Screening for HPV (human papillomavirus) - Liquid-Based Pap Smear, Screening Encouraged her efforts at healthy lifestyle choices. Follow up in about 1 year (around 07/20/2023) for Well woman exam or sooner as needed.. Delmy Beck MD documented in this encounter Plan of Treatment Upcoming Encounters Date Type Department Care Team (Late st Contact Info) Description 11/22/2023 11:00 AM EDT Office Visit [facility] PUBLIC HEALTH PHYSICIAN [address] [address] Delmy Beck MD [address] [place] [id number] AOV, last in 07/19/22 documented as of this encounter Procedures Procedure Name Priority Date/Time Associated Diagnosis Comments HPV RNA E6/E7, SUREPATH RFX HPV 16, 18/45 Routine 07/19/2022 12:03 PM EDT Women's annual routine gynecological examination Screening for HPV (human papillomavirus) LIQUID-BASED PAP SMEAR, SCREENING Routine 07/19/2022 12:03 PM EDT Women's annual routine gynecological examination Screening for HPV (human papillomavirus) documented in this encounter Results * HPV RNA E6/E7, SurePath Rfx HPV 16, 18/45 (07/19/2022 12:03 PM EDT) HPV MRNA E6/E7, SUREPATH VIAL Not Detected NOT DETECTED 07/22/2022 3:01 AM EDT [facility] Comment: Methodology: Toys Inspector-Mediated Amplification ? This assay detects E6/E7 viral messenger RNA (mRNA) from 14 high-risk HPV types (16,18,31,33,35,39,45,51,52,56,58,59,66,68). Cervical sources are required for HPV testing. If a vaginal source from a patient who has had a total hysterectomy with removal of cervix was submitted, please contact the testing laboratory for alternative testing options. For additional information, please refer to http://education.[employer]/faq/OYM694b5 (This link if provided for information/ educational purposes only.) Swab (Endocervical/Ce rvical) Non-blood Collection / Unknown 07/19/2022 12:03 PM EDT 07/20/2022 8:44 AM EDT Narrative [facility] - 07/22/2022 3:01 AM EDT Performing Organization Information: ?Site ID: [id number] ?Name: [email or web address] ?Address: [address] [place] [id number] ?Director: Greg Marquez M.D. Delmy Beck MD LAB MICROBIOLOGY - G ENERAL ORDERABLES [facility] [address], [address] [place] [address], * Liquid-Based Pap Smear, Screening (07/19/2022 12:03 PM EDT) Case Report Pap Test ?Case: [id number] ? Authorizing Provider: ??Delmy Beck MD ? Collected: ? 07/19/2022 1203 ? Ordering Location: ? [facility] ??Received: ?07/19/2022 1203 ? [address] PUBLIC HEALTH PHYSICIAN [place] ? Specimen: ?Endocervical/Ce rvical ? 07/21/2022 3:15 [...] Beck MD LAB CYTOLOGY ORDERAB LES [facility] [address] [place] [address], [place] [address], [facility] [id number] [place] [address] documented in this encounter Visit Diagnoses Diagnosis Women's annual routine gynecological examination- Primary Screening for HPV (human papillomavirus) Special screening examination for human papillomavirus (HPV) documented in this encounter Care Teams Gas Operations Superintendent Relationship Specialty Start Date End Date Raysa Whatley NP [address] [place] [address] PCP - General 04/08/19 documented as of this encounter
[2023-10-29] MEDS: Ondansetron 4 MG/2 ML VIAL IVP (17:59)
[2023-10-29] MEDS: HYDROmorphone 2 MG/ML SYR 1 MG IVP ×2 (18:00→20:30)
[2023-10-29] MEDS: Pantoprazole 40 MG VIAL 80 MG IVP (18:00)
[2023-10-29] MEDS: Normal Saline 1,000 ML 1000 ML IV (18:00)
[2023-10-29 18:07] LABS: Abs Immature Grans 0.03 10^3/uL (0.0-0.06); Absolute Basophil Count 0.05 10^3/uL (0.0-0.2); Absolute Lymphocyte Count 2.28 10^3/uL (1.2-3.4); Absolute Monocyte Count 0.79 10^3/uL (0.1-0.8); Absolute Neutrophil Count 6.62 10^3/uL (1.2-6.7); Basophils % 0.5 %; HCT 40.7 % (36.0-46.0); HGB 13.6 g/dL (11.2-15.7); Immature Grans % 0.3 %; Lymphocytes % 23.1 %; MCHC 33.4 % (32.0-36.0); MCV 90 fL (80-95); MPV 10.9 fL (8.0-11.0); Neutrophils % 67.1 %; Platelet Count 213 10^3/uL (130-400); RBC 4.54 10^6/uL (3.93-5.22); RDW 13.7 % (11.7-14.6); RDW-SD 45.4 fL; WBC 9.87 10^3/uL (4.4-10.8)
[2023-10-29 18:15] LABS: PTT Activated 24.9 sec (23.6-32.8); Prothrombin Time 10.3 sec (9.1-11.1)
[2023-10-29 18:17] LABS: ALT 134 U/L (14-59); AST 147 U/L (15-37); Albumin 4.2 g/dL (3.4-5.0); Alkaline Phosphatase 119 U/L (46-116); Anion Gap 9.2 mmol/L (3-11); BUN 12 mg/dL (7-18); Bilirubin, Total 0.65 mg/dL (0.2-1.0); CO2 29.8 mmol/L (21.0-32.0); CREATININE 1.1 mg/dL (0.55-1.02); Calcium 9.7 mg/dL (8.5-10.1); Chloride 99 mmol/L (98-107); Estimated GFR 60.84 (mL/min/1.73m2); Glucose 113 mg/dL (74-106); Potassium 3.8 mmol/L (3.5-5.1); Sodium 138 mmol/L (136-145); Total Protein 7.9 g/dL (6.4-8.2)
[2023-10-29] MEDS: Omnipaque 350 MG/ML 100 ML BTL IJ (18:55)
[2023-10-29] MEDS: Normal Saline - Diluent 50 ML VIAL IJ (18:55)
--- NOTE | 2023-10-29 19:00 | NUR.NOTE ---
Nursing Note: Assumed care of pt. Pt returned from DI. Pt a/o x 4. Awaiting results.
--- NOTE | 2023-10-29 20:14 | DI.VRAD_ITS ---
PROCEDURE INFORMATION: Exam: CTA Abdomen and Pelvis With Contrast Exam date and time: 10/29/2023 6:36 PM Age: 53 years old Clinical indication: Other: Gi bleed TECHNIQUE: Imaging protocol: Computed tomographic angiography of the abdomen and pelvis with contrast. Exam focused on the arteries. 3D rendering (Not supervised by radiologist): MIP and/or 3D reconstructed images were created by the technologist. Radiation optimization: All CT scans at this facility use at least one of these dose optimization techniques: automated exposure control; mA and/or kV adjustment per patient size (includes targeted exams where dose is matched to clinical indication); or iterative reconstruction. Contrast material: OMNIPAQUE 350; Contrast volume: 100 ml; Contrast route: INTRAVENOUS (IV); COMPARISON: No relevant prior studies available. FINDINGS: Aorta: No aneurysm. No dissection. No stenosis. Mild plaque. Celiac trunk and mesenteric arteries: No occlusion or significant stenosis. Renal arteries: No occlusion or significant stenosis. Right iliac arteries: No occlusion or significant stenosis. Left iliac arteries: No occlusion or significant stenosis. Veins: No mesenteric or portal venous thrombosis. No mesenteric portal venous gas. Normal inferior vena cava. Liver: Liver attenuation is low. Negative for mass or abscess. Gallbladder and biliary ducts: The gallbladder is surgically absent. Negative for biliary ductal dilatation. Pancreas: Fatty replacement of the pancreas. No ductal dilatation. No inflammatory change. Spleen: Unremarkable. No splenomegaly. Adrenal glands: Unremarkable. No mass. Kidneys and ureters: Negative for hydronephrosis. The right kidney is smaller than the left. Ureters are not dilated. No stones are observed. Stomach and bowel: Unremarkable stomach. The small bowel is not dilated. A radiodense structure is present mid small bowel in the lumen, approximately 5 x 2 x 2 cm. See auto service representative axial image 391 series 18. Mild wall thickening is noted throughout the small bowel. Fat planes around loops of small bowel are indistinct. The right colon is surgically absent. An ileocolic anastomosis is unremarkable. Stool burden is mild. There is no contrast extravasation into the bowels. There is no abnormal enhancement in the small bowel and colon. There is no pneumatosis. Appendix: The appendix is surgical absent. Intraperitoneal space: Mild mesenteric fat stranding. No significant free fluid. Negative for free air. Negative for abscess. Lymph nodes: Mesenteric lymph nodes are mildly prominent. No suspicious retroperitoneal lymphadenopathy. Urinary bladder: Unremarkable. No mass. Reproductive: Unremarkable as visualized. Bones/joints: No acute fracture. Soft tissues: No significant abdominal wall hernia. Abdominal wall scar tissue noted. Small subcutaneous nodules are noted in both buttocks; suspect injection granulomas. IMPRESSION: 1. No contrast extravasation into the bowels. 2. No evidence of bowel ischemia. 3. No bowel obstruction. 4. Findings suggest enteritis. 5. Complex ingested foreign body or other radiodense structure mid small bowel. 6. Prior right hemicolectomy and ileocolic anastomosis. No complications observed. 7. Hepatic steatosis. Dictated and Authenticated by: Cody Ridley MD. Ordering:[facility] Mallory Singh MD
== END | disposition home or self-care (01) ==
LOC: ER 21:48 → RED 21:58
PROVIDERS: Emergency Provider Emergency Medicine
DX: R10.9 Unspecified abdominal pain (principal); D3A.00 Benign carcinoid tumor of unspecified site; K92.2 Gastrointestinal hemorrhage, unspecified
CPT/HCPCS: 80053; 86850; 86900; 86901; 96361; 96374; 96375; 96376; 99284; 74174; 85025; 85610; 85730; 99283; J1170; J2405; J2470; J3490